=== PATIENT | male | born 1950 | race Caucasian/White ===

== ENCOUNTER 2016-08-08 10:30 | Inpatient (IN) | payer SELFPAY ==
[~2016-08-08] VITALS: Ht 180.3 cm; Wt 51.3 kg
[2016-08-08] VITALS (11 sets, daily range): BP systolic 95–146; BP diastolic 68–107
[~2016-08-08 10:30] MED LIST: ASPI325T8 PO; BUPR150T6 PO; BUPR1FIL BC; DILT240C32 PO; HYDR-971 PO; LACT20SO PO; LORA0.5T96 PO; OMEP20CA9 PO; ONDA8TAB12 PO; THIA100T4 PO
[2016-08-08] MEDS ORDERED: dilTIAZem IV PUSH 25 MG/5 ML VIAL ONE (10:37)
[2016-08-08 10:51] LABS: BASO # 0.1 x10^3/uL (0.0-0.2); BASO % 0 % (0-3); EOS % 1 % (0-3); LYMPH # 3.8 x10^3/uL (1.0-4.8); LYMPH % 23 % (24-48); MEAN CORPUSCULAR HEMOGLOBIN 33 pg (25-35); MEAN CORPUSCULAR HGB CONC 34 g/dL (31-37); MEAN CORPUSCULAR VOLUME 97 fL (79-100); MONO % 4 % (0-9); NEUT % 72 % (31-73); PLATELET COUNT 312 x10^3/uL (140-400); RED BLOOD COUNT 4.54 x10^6/uL (4.30-5.70); RED CELL DISTRIBUTION WIDTH 14.1 % (11.5-14.5); WHITE BLOOD COUNT 16.7 x10^3/uL (4.0-11.0)
--- NOTE | 2016-08-08 10:58 | RAD ---
Indication back pain. A single view of the chest was obtained and is compared to a study 01/31/2016. The heart and pulmonary vessels appear normal. The lungs are clear of acute infiltrates. There has not been a significant change compared to the previous exam. IMPRESSION: No acute or focal process. No significant change
[2016-08-08 10:59] LABS: CALCIUM 9.6 mg/dL (8.5-10.1); CREATININE 1.1 mg/dL (0.7-1.3); GFR 67.4; INR 1.2 (0.8-1.1); PROTHROMBIN TIME PATIENT 14.6 SEC (11.7-14.0)
[2016-08-08] MEDS ORDERED: dilTIAZem IV PUSH 25 MG/5 ML VIAL IVP ONE (11:00)
[2016-08-08 11:05] LABS: MAGNESIUM 2.1 mg/dL (1.8-2.4); TOTAL BILIRUBIN 0.9 mg/dL (0.2-1.0); TOTAL PROTEIN 8.2 g/dL (6.4-8.2)
[2016-08-08] MEDS ORDERED: IOHEXOL 350 MG/ML 100 ML VIAL. IV ONE (11:15)
[2016-08-08] MEDS ORDERED: PROPOFOL 20 ML IV ONE (11:15)
[2016-08-08] MEDS ORDERED: fentaNYL PF VIAL 100 MCG/2 ML VIAL IV ONE ×3 (11:15→11:45)
[2016-08-08] MEDS ORDERED: CONTRAST GIVEN MC PRN (11:15)
[2016-08-08] MEDS ORDERED: PROPOFOL 50 ML IV ONE ×2 (11:17→12:09)
[2016-08-08] MEDS ORDERED: ONDANSETRON PF 4 MG/2 ML VIAL. IV PRN (11:30)
[2016-08-08] MEDS ORDERED: fentaNYL PF VIAL 100 MCG/2 ML VIAL IV PRN (11:30)
[2016-08-08 11:31] LABS: BILIRUBIN,URINE NEGATIVE (NEG); GLUCOSE,URINE NEGATIVE (NEG); NITRITE,URINE NEGATIVE (NEG); PROTEIN,URINE 30 mg/dL (NEG-TRACE)
[2016-08-08 11:38] LABS: BARBITURATES NEG (NEG); BENZODIAZEPINES NEG (NEG); CANNABINOIDS POS (NEG); COCAINE NEG (NEG); METHADONE NEG (NEG); OPIATES NEG (NEG); PHENCYCLIDINE NEG (NEG)
[2016-08-08 11:40] LABS: BACTERIA,URINE FEW /HPF (0-FEW); SQUAMOUS EPITHELIAL CELL,UR FEW /LPF
[2016-08-08 11:41] LABS: SPERM,URINE PRESENT /HPF
--- NOTE | 2016-08-08 12:33 | RAD ---
Indication change in mental status. Noncontrast images of the head were obtained. No prior CT imaging of the head is available. Note is made of an MRI examination 02/01/2016. The calvarium appears unremarkable. The visualized paranasal sinuses appear normal. There is no subdural or epidural hematoma. No mass or midline shift is seen. There is no evidence of hemorrhage. IMPRESSION: No acute finding seen in the head PQRS Compliance Statement: One or more of the following individualized dose reduction techniques were utilized for this examination: 1. Automated exposure control 2. Adjustment of the mA and/or kV according to patient size 3. Use of iterative reconstruction technique
--- NOTE | 2016-08-08 12:40 | EKG ---
[facility] [address] [place] [address] Test Date: 2016-08-08 Test Time: 10:37:02 Pat Name: EMIL KAUR Department: Room: 102 1 Gender: M [employer]: TEJA : [id number] Requested By: JARRELL EAST Order Number: [id number] Reading MD: Michelle Orozco Measurements Intervals [place] Rate: 123 P: OR: QRS: 80 QRSD: 80 T: -26 QT: 308 QTc: 446 Interpretive Statements ATRIAL FIBRILLATION ST & T ABNORMALITY, CONSIDER INFEROLATERAL ISCHEMIA ABNORMAL ECG Electronically Signed On 08-08-2016 21:29:15 CDT by Michelle Orozco
[2016-08-08 12:42] LABS: BASE EXCESS COOX -8 mmol/L (-3-3); CARBON MONOXIDE 0.5 % (0.0-1.9); HCO3 COOX 18 mmol/L (21-28); METHEMOGLOBIN 0.5 % (0.0-1.9); OXYHEMOGLOBIN 98.6 %; PCO2 COOX 37 mmHg (35-46); PO2 COOX > 503 mmHg (65-108); SAT O2 COOX 100 % (92-99); TOTAL HEMOGLOBIN 14.8 g/dL
--- NOTE | 2016-08-08 12:46 | RAD ---
Indication change in mental status. Suspect dissection. Initially noncontrast images through the chest and most of the abdomen were obtained. This was followed by CTA targeted to the thoracic and abdominal aorta. Approximately 90 cc of Omnipaque 300 was administered intravenously. Volume rendered images were generated and reviewed. Sagittal reformatted images were also generated and reviewed. On the initial noncontrast images there is no evidence of intramural hematoma. Some plaquing of the abdominal aorta is noted. On the contrast images the thoracic aorta appears normal. There is no aneurysm. No acute finding is seen. There is no dissection. The abdominal aorta appears unremarkable. Endotracheal tube is noted. There is no significant hilar or mediastinal adenopathy. There is no acute infiltrate in either lung. A dominant soft tissue mass is not seen. There is an air cavity in the left lower lobe measuring 7 cm in greatest dimension. This may reflect a bleb or bulla. Pneumatocele would be an additional consideration. It is quite thin-walled. Imaging through the visualized abdomen is unremarkable. IMPRESSION: No acute finding seen in the chest. Negative study for dissection. 7 cm air cavity in the left lower lobe most compatible with a bleb, bulla or pneumatocele. PQRS Compliance Statement: One or more of the following individualized dose reduction techniques were utilized for this examination: 1. Automated exposure control 2. Adjustment of the mA and/or kV according to patient size 3. Use of iterative reconstruction technique
--- NOTE | 2016-08-08 12:49 | PHYS DOC ---
Past Medical History Past Medical History: Hepatitis, Other Additional Past Medical Histor: CHRONIC N/V & ABD PAIN, Narcotic addiction, HEP C Past Surgical History: No Surgical History Alcohol Use: Heavy Drug Use: Marijuana, Other Adult General Chief Complaint Chief Complaint: BACK PAIN - NO INJURY HPI HPI Patient is a 65 year old male presenting to the emergency department for evaluation of extreme back pain pain is in his upper back and he is in extremis and very difficult to get history from. He is obviously in atrial fibrillation with RVR tachycardic in the 150s and he is hypertensive in the 170/110 range as well. Patient was given a bolus dose of Cardizem and I had 2 other critical patients I had to attend to and was called back into his room as he was having a seizure. Patient was completely blue with an auction saturation of 50% and he had gurgling breath sounds and was not protecting his airway. Decision was made to intubate patient. Patient was intubated and he had head CT and CT angiogram of his chest done. As I was updating family I was asking the rest of his medical history and it appears that he is a heavy daily drinker but they do not think that he stop drinking alcohol. After reviewing the labs he had no alcohol in the system. Patient likely having withdrawal seizures and his ammonia is high and likely has some hepatic encephalopathy as well. Review of Systems Review of Systems Unable to obtain due to medical condition Current Medications Current Medications Current Medications Medications (Trade) Dose Ordered Sig/Farzana Start Time Stop Time Status Last Admin Dose Admin Diltiazem HCl (Cardizem) 20 mg 1X ONCE 08/08/16 11:00 08/08/16 11:01 DC 08/08/16 10:40 20 MG Diltiazem HCl 125 mg/Dextrose 125 ml @ 0 mls/hr CONT PRN 08/08/16 11:00 Fentanyl Citrate (Fentanyl 2ml Vial) 100 mcg 1X ONCE 08/08/16 11:15 08/08/16 11:16 DC Info (Do NOT chart on this entry -- for MONITORING) 1 each PRN DAILY PRN 08/08/16 11:15 08/10/16 11:14 Iohexol (Omnipaque 350 Mg/ml) 90 ml 1X ONCE 08/08/16 11:15 08/08/16 11:16 DC Lorazepam (Ativan) 2 mg STK-MED ONCE 08/08/16 10:55 08/08/16 10:56 DC Propofol 50 ml @ As Directed STK-MED ONCE 08/08/16 11:17 08/08/16 11:18 DC Allergies Allergies Allergies Coded Allergies Type Severity Reaction Last Updated Verified No Known Drug Allergies 12/01/15 No Physical Exam Physical Exam Constitutional: Toxic appearing and diaphoretic HENT: Normocephalic, atraumatic, bilateral external ears normal, oropharynx moist, no oral exudates, nose normal. [] Eyes: PERRLA Neck: Normal range of motion, no tenderness, supple, no stridor. [] Cardiovascular irregular tachycardic rhythm Lungs & Thorax: Bilateral breath sounds present Abdomen: Bowel sounds normal, soft, no tenderness, no masses, no pulsatile masses. [] Skin: Cool and pale Back: no CVA tenderness. [] Extremities: No tenderness, no cyanosis, no clubbing, ROM intact, no edema. [] Neurologic: Alert and oriented X 2, moves all extremities Current Patient Data Vital Signs Vital Signs Date Time Temp Pulse Resp B/P (MAP) Pulse Ox O2 Delivery O2 Flow Rate FiO2 08/08/16 11:18 100 Ventilator 08/08/16 11:17 138/86 (103) 08/08/16 10:40 177 08/08/16 10:30 98.8 26 98.8 Lab Values Laboratory Tests Test 08/08/16 10:35 08/08/16 10:37 08/08/16 11:10 08/08/16 11:13 White Blood Count 16.7 x10^3/uL (4.0-11.0) H Red Blood Count 4.54 x10^6/uL (4.30-5.70) Hemoglobin 15.0 g/dL (13.0-17.5) Hematocrit 44.0 % (39.0-53.0) Mean Corpuscular Volume 97 fL (79-100) Mean Corpuscular Hemoglobin 33 pg (25-35) Mean Corpuscular Hemoglobin Concent 34 g/dL (31-37) Red Cell Distribution Width 14.1 % (11.5-14.5) Platelet Count 312 x10^3/uL (140-400) Neutrophils (%) (Auto) 72 % (31-73) Lymphocytes (%) (Auto) 23 % (24-48) L Monocytes (%) (Auto) 4 % (0-9) Eosinophils (%) (Auto) 1 % (0-3) Basophils (%) (Auto) 0 % (0-3) Neutrophils # (Auto) 12.0 x10^3uL (1.8-7.7) H Lymphocytes # (Auto) 3.8 x10^3/uL (1.0-4.8) Monocytes # (Auto) 0.7 x10^3/uL (0.0-1.1) Eosinophils # (Auto) 0.2 x10^3/uL (0.0-0.7) Basophils # (Auto) 0.1 x10^3/uL (0.0-0.2) Prothrombin Time 14.6 SEC (11.7-14.0) H Prothrombin Time INR 1.2 (0.8-1.1) H PTT 30 SEC (24-38) Sodium Level 140 mmol/L (136-145) Potassium Level 4.0 mmol/L (3.5-5.1) Chloride Level 102 mmol/L (98-107) Carbon Dioxide Level 17 mmol/L (21-32) L Anion Gap 21 (6-14) H Blood Urea Nitrogen 15 mg/dL (8-26) Creatinine 1.1 mg/dL (0.7-1.3) Estimated GFR (Cockcroft-Gault) 67.4 BUN/Creatinine Ratio 14 (6-20) Glucose Level 166 mg/dL (70-99) H Calcium Level 9.6 mg/dL (8.5-10.1) Magnesium Level 2.1 mg/dL (1.8-2.4) Total Bilirubin 0.9 mg/dL (0.2-1.0) Aspartate Amino Transferase (AST) 48 U/L (15-37) H Alanine Aminotransferase (ALT) 38 U/L (16-63) Alkaline Phosphatase 87 U/L (46-116) Creatine Kinase 89 U/L (39-308) Troponin I Quantitative < 0.017 ng/mL (0.000-0.055) CZ-Hoc-T-Type Natriuretic Peptide 1595 pg/mL (0-124) H Total Protein 8.2 g/dL (6.4-8.2) Albumin 4.0 g/dL (3.4-5.0) Albumin/Globulin Ratio 1.0 (1.0-1.7) Lipase 213 U/L (73-393) Ethyl Alcohol Level < 10 mg/dL (0-10) Urine Collection Type Unknown Urine Color Yellow Urine Clarity Clear Urine pH 6.0 Urine Specific [place] 1.020 Urine Protein 30 mg/dL (NEG-TRACE) Urine Glucose (UA) Negative mg/dL (NEG) Urine Ketones (Stick) Trace mg/dL (NEG) Urine Blood Small (NEG) Urine Nitrite Negative (NEG) Urine Bilirubin Negative (NEG) Urine Urobilinogen Dipstick 2.0 mg/dL (0.2 mg/dL) Urine Leukocyte Esterase Negative (NEG) Urine RBC 6-10 /HPF (0-2) Urine WBC 1-4 /HPF (0-4) Urine Squamous Epithelial Cells Few /LPF Urine Bacteria Few /HPF (0-FEW) Urine Hyaline Casts Many /HPF Urine Mucus Marked /LPF Urine Sperm Present /HPF Urine Opiates Screen Neg (NEG) Urine Methadone Screen Neg (NEG) Urine Barbiturates Neg (NEG) Urine Phencyclidine Screen Neg (NEG) Urine Amphetamine/Methamphetamine Neg (NEG) Urine Benzodiazepines Screen Neg (NEG) Urine Cocaine Screen Neg (NEG) Urine Cannabinoids Screen Pos (NEG) Urine Ethyl Alcohol Neg (NEG) Lactic Acid Level 17.2 mmol/L (0.4-2.0) *H Ammonia 254 mcmol/L (11-34) H Laboratory Tests 08/08/16 10:35 Laboratory Tests 08/08/16 10:35 EKG EKG Atrial fibrillation at 123 bpm with normal axis no obvious ST elevation or depression with hyperacute T waves. Radiology/Procedures Radiology/Procedures Indication change in mental status. Noncontrast images of the head were obtained. No prior CT imaging of the head is available. Note is made of an MRI examination 02/01/2016. The calvarium appears unremarkable. The visualized paranasal sinuses appear normal. There is no subdural or epidural hematoma. No mass or midline shift is seen. There is no evidence of hemorrhage. IMPRESSION: No acute finding seen in the head PQRS Compliance Statement: One or more of the following individualized dose reduction techniques were utilized for this examination: 1. Automated exposure control 2. Adjustment of the mA and/or kV according to patient size 3. Use of iterative reconstruction technique DICTATED and SIGNED BY: WAYNE LIU MD DATE: 08/08/16 1227 Indication back pain. A single view of the chest was obtained and is compared to a study 01/31/2016. The heart and pulmonary vessels appear normal. The lungs are clear of acute infiltrates. There has not been a significant change compared to the previous exam. IMPRESSION: No acute or focal process. No significant change DICTATED and SIGNED BY: WAYNE LIU MD DATE: 08/08/16 1055 Impressions: Indication: Respiratory failure Consent: Unable to give consent due to emergent nature. Medications Used: see nursing note Procedure: The patient was placed in the appropriate position. Intubation was performed using direct visualization and a 7.5 ET tube was used endotracheal tube. 22 center meters at the teeth. Initial confirmation of placement included bilateral breath sounds, tube fogging, adequate chest rise, adequate pulse oximetry reading. A chest x-ray to verify correct placement of the tube showed appropriate tube position. The patient tolerated the procedure well. Complications: none. Course & Med Decision Making Course & Med Decision Making Patient's back pain is likely from erosive esophagitis as reports he has history of this. He is likely withdrawing. Patient put on propofol drip and could tolerate intermittent benzodiazepines as well. Patient will be admitted to the ICU in critical condition. Critical care time of 35 minutes. Dragon Disclaimer Dragon Disclaimer This electronic medical record was generated, in whole or in part, using a voice recognition dictation system. Departure Departure Impression: Primary Impression: Respiratory failure Additional Impressions: Alcohol withdrawal Lactic acid acidosis Hepatic encephalopathy Disposition: ADMITTED INPATIENT Admitting Physician: Other (REUSCH) Condition: CRITICAL Referrals: THOMAS HAY Jr, MD (PCP) Problem Qualifiers JARRELL EAST DO Aug 08, 2016 12:49
[2016-08-08 12:52] LABS: FIO2 COOX 100
[2016-08-08] MEDS ORDERED: SUCCINYLCHOLINE 200 MG/10 ML VIAL. IV ONE (13:00)
[2016-08-08] MEDS ORDERED: ETOMIDATE 20 MG/10 ML VIAL. IV ONE (13:00)
--- NOTE | 2016-08-08 13:27 | ACF ---
Admission Forms Criteria RESPIRATORY FAILURE [facility] Clinical Indications for Admission to Inpatient Care (Place 'X' for any and all applicable criteria): Hospital admission is needed for appropriate care of the patient because of acute respiratory failure or insufficiency as indicated by ANY ONE of the following(1)(2)(3)(4)(5)(6)(7)(8): [X]I. Mechanical ventilation needed (acute invasive or noninvasive) [ ]II. Severe ventilation deficit as indicated by ANY ONE of the following (9) [ ]a) Respiratory acidosis (pH less than 7.32 and partial pressure of carbon dioxide greater than 40 mm Hg (5.3 kPa)) [ ]b) Partial pressure of carbon dioxide greater than 44 mm Hg (5.9 kPa ) (new) [ ]c) Airflow measurements less than 25% of predicted (eg, peak expiratory flow rate less than 100 L/minute) [ ]d) Forced vital capacity less than 15 mL/kg of ideal body weight, or 50% decrease in vital capacity from baseline [ ]III. Noncardiac pulmonary edema not resolving with rapid emergency treatment (8) [ ]IV. Severe respiratory distress as indicated by ANY ONE of the following: [ ]a) Severe tachypnea (respiratory rate greater than 30, greater than 45 for 6-month-old, greater than 60 for ) [ ]b) Severe hypoxemia (partial pressure of oxygen less than 50 mm Hg ( 6.7 kPa) on greater than 50% oxygen or partial pressure of oxygen to FIO2 ratio less than 200) [ ]c) Mental status deterioration from respiratory disease [ ]V. Airway obstruction or inadequate protection [A](10)(11) The original [employer] content created by [employer] has been revised. The portions of the content which have been revised are identified through the use of italic text or in bold, and [employer] has neither reviewed nor approved the modified material. All other unmodified content is copyright [employer]. Please see references footnoted in the original [employer] edition 2016 Admission Criteria Met?: Yes ZULY VIDAL Aug 08, 2016 13:27
[2016-08-08] MEDS: PROPOFOL 100 ML IV PRN ×2 (13:58→22:00)
--- NOTE | 2016-08-08 15:24 | PDOC2 ---
CONSULT Date of Consult Date of Consult DATE: 08/08/16 TIME: 15:21 Reason for Consult Reason for Consult: Seizures. History of Present Illness Reason for Visit: This patient is 65-year-old man who presented to emergency room with complaint of back pain. Information obtained from patient's family at bedside. They report patient was at home he had an episode of generalized tonic-clonic seizure , confusion lasted for a few minutes patient does not have any tongue bite does not have any loss of bladder or bowel control. Patient had another seizure episode generalized tonic-clonic in the emergency room patient was loaded with 1 g Keppra. Patient had a CT scan done on the brain which did not show any acute intracranial process. Patient is a heavy" drinker. Patient was drinking less than normal in last few days. Patient was also in atrial fibrillation, tachycardic his heart was running in 150s, blood pressure was high patient had a bolus of Cardizem. Patient was intubated in the emergency room and patient is currently status sedated, propofol patient is also on alcohol withdrawal protocol. Encephalopathy Hepatic encephalopathy Alcohol withdrawal Respiratory failure currently sedated and intubated. Generalized seizure Past Medical History Cardiovascular: AFIB, HTN, Other GI: Gastritis, Other Hepatobiliary: Hep A/B/C Psych: Addictions Past Surgical History Past Surgical History: No pertinent history Family History Family History: Hypertension Social History ALCOHOL: heavy Drugs: Other Current Problem List Problem List Problems Medical Problems: (1) Alcohol withdrawal Status: Acute (2) Hepatic encephalopathy Status: Acute (3) Lactic acid acidosis Status: Acute (4) Respiratory failure Status: Acute Current Medications Current Medications Current Medications Diltiazem HCl (Cardizem) 25 mg STK-MED ONCE .ROUTE ; Start 08/08/16 at 10:37; Stop 08/08/16 at 10:38; Status DC Diltiazem HCl 125 mg/Dextrose 125 ml @ 0 mls/hr CONT PRN IV SEE I/O RECORD; Start 08/08/16 at 11:00 Diltiazem HCl (Cardizem) 20 mg 1X ONCE IVP Last administered on 08/08/16t 10: 40; Start 08/08/16 at 11:00; Stop 08/08/16 at 11:01; Status DC Lorazepam (Ativan) 2 mg STK-MED ONCE .ROUTE ; Start 08/08/16 at 10:55; Stop 01/14 at 10:56; Status DC Iohexol (Omnipaque 350 Mg/ml) 90 ml 1X ONCE IV ; Start 08/08/16 at 11:15; Stop 08/08/16 at 11:16; Status DC Propofol 20 ml @ 0 mls/hr 1X ONCE IV Last administered on 08/08/16 11:20; Start 08/08/16 at 11:15; Stop 08/08/16 at 11:16; Status DC Info (Do NOT chart on this entry -- for MONITORING) 1 each PRN DAILY PRN MC SEE COMMENTS; Start 08/08/16 at 11:15; Stop 08/10/16 at 11:14 Fentanyl Citrate (Fentanyl 2ml Vial) 100 mcg 1X ONCE IV Last administered on 11:03; Start 08/08/16 at 11:15; Stop 08/08/16 at 11:16; Status DC Fentanyl Citrate (Fentanyl 2ml Vial) 100 mcg 1X ONCE IV Last administered on 11:16; Start 08/08/16 at 11:15; Stop 08/08/16 at 11:16; Status DC Propofol 50 ml @ As Directed STK-MED ONCE IV ; Start 08/08/16 at 11:17; Stop 01/14 at 11:18; Status DC Ondansetron HCl (Zofran) 4 mg PRN Q8HRS PRN IV NAUSEA/VOMITING; Start 08/08/16 at 11:30; Stop 08/09/16 at 11:29 Fentanyl Citrate (Fentanyl 2ml Vial) 50 mcg PRN Q2HR PRN IV PAIN Last administered on 08/08/16 13:16; Start 08/08/16 at 11:30; Stop 08/09/16 at 11:29 Levetiracetam 1000 mg/Sodium Chloride 110 ml @ 440 mls/hr 1X ONCE IV Last administered on 08/08/16 11:39; Start 08/08/16 at 11:45; Stop 08/08/16 at 11:59 ; Status DC Fentanyl Citrate (Fentanyl 2ml Vial) 100 mcg 1X ONCE IV ; Start 08/08/16 at 11: 45; Stop 08/08/16 at 11:46; Status DC Propofol 50 ml @ As Directed STK-MED ONCE IV ; Start 08/08/16 at 12:09; Stop 01/14 at 12:10; Status DC Lorazepam (Ativan) 2 mg 1X ONCE IV ; Start 08/08/16 at 13:00; Stop 08/08/16 at 13:01; Status DC Succinylcholine Chloride (Anectine) 100 mg 1X ONCE IV ; Start 08/08/16 at 13:00 ; Stop 08/08/16 at 13:01; Status DC Etomidate (Amidate) 20 mg 1X ONCE IV ; Start 08/08/16 at 13:00; Stop 08/08/16 at 13:01; Status DC Propofol 100 ml @ 0 mls/hr CONT PRN IV PER PROTOCOL Last administered on t 13:58; Start 08/08/16 at 13:45 Fentanyl Citrate (Fentanyl 2ml Vial) 50 mcg PRN Q1HR PRN IV COMM; Start at 13:45 Chlorhexidine Gluconate (Peridex) 15 ml BID MM ; Start 08/08/16 at 21:00 Ipratropium [place] (Atrovent) 0.5 mg RTQID NEB ; Start 08/08/16 at 16:00 Metoprolol Tartrate (Lopressor) 12.5 mg BID PO ; Start 08/08/16 at 14:30 Lorazepam (Ativan) 1 mg PRN Q4HRS PRN IV ANXIETY / AGITATION; Start 08/08/16 at 14:45 Levetiracetam (Keppra) 500 mg Q12HR PO ; Start 08/08/16 at 21:00 Multivitamins 10 ml/Folic Acid 1 mg/Thiamine HCl 100 mg/Sodium Chloride 1,011.2 ml @ 100 mls/ hr Q24H IV ; Start 08/08/16 at 16:00 Lorazepam (Ativan) 2 mg PRN Q4HRS PRN IV ANXIETY / AGITATION; Start 08/08/16 at 15:15 Active Scripts Active Aspirin 325 Mg Tablet 1 Tab PO DAILY Lactulose 20 Gm/30 Ml Solution 20 Gm PO QODAY Ativan (Lorazepam) 0.5 Mg Tablet 0.5 Mg PO BID Diltiazem 24HR Cd (Diltiazem Hcl) 240 Mg Cap.er.24h 240 Mg PO DAILY Vitamin B-1 (Thiamine Hcl) 100 Mg Tablet 100 Mg PO DAILY [place] 5-325 Tablet (Acetaminophen/Hydrocodone Bitart) 1 Each Tablet 1 Tab PO PRN Q6HRS PRN Reported Omeprazole 20 Mg Capsule.dr 20 Mg PO DAILY Zofran Odt (Ondansetron) 8 Mg Tab.rapdis 1 Tab PO PRN Q8HRS PRN [place] 4.2-0.7 mg Film (Buprenorphine HCl/Naloxone HCl) 1 Each Film 1 Each BC DAILY Allergies Allergies: Coded Allergies: No Known Drug Allergies (Unverified , 12/01/15) Physical Exam Physical Exam REVIEW OF SYSTEMS: Unobtainable PHYSICAL EXAMINATION: General appearance sedated and intubated HEENT: Normocephalic and nontraumatic. Neck is supple. No lymphadenopathy. Cardiovascular: S1, S2, Pulmonary: Clear to auscultation bilaterally. Abdomen: Bowel sounds are positive. Abdomen is soft, nontender, and nondistended. NEUROLOGICAL EXAMINATION: Sedated and intubated PERRL. EOMI. not elicited CN: no focal findings. Muscle tone: within normal. Muscle strength: Minimum withdrawal to pain DTR: 1 Plantar reflex: Flexor response bilaterally Gait: not able Sensory exam: Minimum withdrawal to pain Vitals VITALS Vital Signs Date Time Temp Pulse Resp B/P (MAP) Pulse Ox O2 Delivery O2 Flow Rate FiO2 08/08/16 13:50 Ventilator 08/08/16 12:45 100 08/08/16 12:30 98 18 132/76 (94) 08/08/16 10:30 98.8 98.8 Labs Labs Laboratory Tests Test 08/08/16 10:35 08/08/16 10:37 08/08/16 11:10 08/08/16 11:13 White Blood Count 16.7 x10^3/uL (4.0-11.0) Red Blood Count 4.54 x10^6/uL (4.30-5.70) Hemoglobin 15.0 g/dL (13.0-17.5) Hematocrit 44.0 % (39.0-53.0) Mean Corpuscular Volume 97 fL (79-100) Mean Corpuscular Hemoglobin 33 pg (25-35) Mean Corpuscular Hemoglobin Concent 34 g/dL (31-37) Red Cell Distribution Width 14.1 % (11.5-14.5) Platelet Count 312 x10^3/uL (140-400) Neutrophils (%) (Auto) 72 % (31-73) Lymphocytes (%) (Auto) 23 % (24-48) Monocytes (%) (Auto) 4 % (0-9) Eosinophils (%) (Auto) 1 % (0-3) Basophils (%) (Auto) 0 % (0-3) Neutrophils # (Auto) 12.0 x10^3uL (1.8-7.7) Lymphocytes # (Auto) 3.8 x10^3/uL (1.0-4.8) Monocytes # (Auto) 0.7 x10^3/uL (0.0-1.1) Eosinophils # (Auto) 0.2 x10^3/uL (0.0-0.7) Basophils # (Auto) 0.1 x10^3/uL (0.0-0.2) Prothrombin Time 14.6 SEC (11.7-14.0) Prothromb Time International Ratio 1.2 (0.8-1.1) Activated Partial Thromboplast Time 30 SEC (24-38) Sodium Level 140 mmol/L (136-145) Potassium Level 4.0 mmol/L (3.5-5.1) Chloride Level 102 mmol/L (98-107) Carbon Dioxide Level 17 mmol/L (21-32) Anion Gap 21 (6-14) Blood Urea Nitrogen 15 mg/dL (8-26) Creatinine 1.1 mg/dL (0.7-1.3) Estimated GFR (Cockcroft-Gault) 67.4 BUN/Creatinine Ratio 14 (6-20) Glucose Level 166 mg/dL (70-99) Calcium Level 9.6 mg/dL (8.5-10.1) Magnesium Level 2.1 mg/dL (1.8-2.4) Total Bilirubin 0.9 mg/dL (0.2-1.0) Aspartate Amino Transf (AST/SGOT) 48 U/L (15-37) Alanine Aminotransferase (ALT/SGPT) 38 U/L (16-63) Alkaline Phosphatase 87 U/L (46-116) Creatine Kinase 89 U/L (39-308) Troponin I Quantitative < 0.017 ng/mL (0.000-0.055) UU-Jqx-[id number]-Type Natriuretic Peptide 1595 pg/mL (0-124) Total Protein 8.2 g/dL (6.4-8.2) Albumin 4.0 g/dL (3.4-5.0) Albumin/Globulin Ratio 1.0 (1.0-1.7) Lipase 213 U/L (73-393) Ethyl Alcohol Level < 10 mg/dL (0-10) Urine Collection Type Unknown Urine Color Yellow Urine Clarity Clear Urine pH 6.0 Urine Specific [place] 1.020 Urine Protein 30 mg/dL (NEG-TRACE) Urine Glucose (UA) Negative mg/dL (NEG) Urine Ketones (Stick) Trace mg/dL (NEG) Urine Blood Small (NEG) Urine Nitrite Negative (NEG) Urine Bilirubin Negative (NEG) Urine Urobilinogen Dipstick 2.0 mg/dL (0.2 mg/dL) Urine Leukocyte Esterase Negative (NEG) Urine RBC 6-10 /HPF (0-2) Urine WBC 1-4 /HPF (0-4) Urine Squamous Epithelial Cells Few /LPF Urine Bacteria Few /HPF (0-FEW) Urine Hyaline Casts Many /HPF Urine Mucus Marked /LPF Urine Sperm Present /HPF Urine Opiates Screen Neg (NEG) Urine Methadone Screen Neg (NEG) Urine Barbiturates Neg (NEG) Urine Phencyclidine Screen Neg (NEG) Urine Amphetamine/Methamphetamine Neg (NEG) Urine Benzodiazepines Screen Neg (NEG) Urine Cocaine Screen Neg (NEG) Urine Cannabinoids Screen Pos (NEG) Urine Ethyl Alcohol Neg (NEG) Lactic Acid Level 17.2 mmol/L (0.4-2.0) Ammonia 254 mcmol/L (11-34) Test 08/08/16 12:30 O2 Saturation 100 % (92-99) Arterial Blood pH 7.30 (7.35-7.45) Arterial Blood pCO2 at Patient Temp 37 mmHg (35-46) Arterial Blood pO2 at Patient Temp > 503 mmHg (65-108) Arterial Blood HCO3 18 mmol/L (21-28) Arterial Blood Base Excess -8 mmol/L (-3-3) Oxyhemoglobin 98.6 % Methemoglobin 0.5 % (0.0-1.9) Carbon Monoxide, Quantitative 0.5 % (0.0-1.9) FiO2 100 Laboratory Tests Test 08/08/16 10:35 08/08/16 10:37 08/08/16 11:10 08/08/16 11:13 White Blood Count 16.7 x10^3/uL (4.0-11.0) Red Blood Count 4.54 x10^6/uL (4.30-5.70) Hemoglobin 15.0 g/dL (13.0-17.5) Hematocrit 44.0 % (39.0-53.0) Mean Corpuscular Volume 97 fL (79-100) Mean Corpuscular Hemoglobin 33 pg (25-35) Mean Corpuscular Hemoglobin Concent 34 g/dL (31-37) Red Cell Distribution Width 14.1 % (11.5-14.5) Platelet Count 312 x10^3/uL (140-400) Neutrophils (%) (Auto) 72 % (31-73) Lymphocytes (%) (Auto) 23 % (24-48) Monocytes (%) (Auto) 4 % (0-9) Eosinophils (%) (Auto) 1 % (0-3) Basophils (%) (Auto) 0 % (0-3) Neutrophils # (Auto) 12.0 x10^3uL (1.8-7.7) Lymphocytes # (Auto) 3.8 x10^3/uL (1.0-4.8) Monocytes # (Auto) 0.7 x10^3/uL (0.0-1.1) Eosinophils # (Auto) 0.2 x10^3/uL (0.0-0.7) Basophils # (Auto) 0.1 x10^3/uL (0.0-0.2) Prothrombin Time 14.6 SEC (11.7-14.0) Prothromb Time International Ratio 1.2 (0.8-1.1) Activated Partial Thromboplast Time 30 SEC (24-38) Sodium Level 140 mmol/L (136-145) Potassium Level 4.0 mmol/L (3.5-5.1) Chloride Level 102 mmol/L (98-107) Carbon Dioxide Level 17 mmol/L (21-32) Anion Gap 21 (6-14) Blood Urea Nitrogen 15 mg/dL (8-26) Creatinine 1.1 mg/dL (0.7-1.3) Estimated GFR (Cockcroft-Gault) 67.4 BUN/Creatinine Ratio 14 (6-20) Glucose Level 166 mg/dL (70-99) Calcium Level 9.6 mg/dL (8.5-10.1) Magnesium Level 2.1 mg/dL (1.8-2.4) Total Bilirubin 0.9 mg/dL (0.2-1.0) Aspartate Amino Transf (AST/SGOT) 48 U/L (15-37) Alanine Aminotransferase (ALT/SGPT) 38 U/L (16-63) Alkaline Phosphatase 87 U/L (46-116) Creatine Kinase 89 U/L (39-308) Troponin I Quantitative < 0.017 ng/mL (0.000-0.055) IO-Tbh-C-Type Natriuretic Peptide 1595 pg/mL (0-124) Total Protein 8.2 g/dL (6.4-8.2) Albumin 4.0 g/dL (3.4-5.0) Albumin/Globulin Ratio 1.0 (1.0-1.7) Lipase 213 U/L (73-393) Ethyl Alcohol Level < 10 mg/dL (0-10) Urine Collection Type Unknown Urine Color Yellow Urine Clarity Clear Urine pH 6.0 Urine Specific [place] 1.020 Urine Protein 30 mg/dL (NEG-TRACE) Urine Glucose (UA) Negative mg/dL (NEG) Urine Ketones (Stick) Trace mg/dL (NEG) Urine Blood Small (NEG) Urine Nitrite Negative (NEG) Urine Bilirubin Negative (NEG) Urine Urobilinogen Dipstick 2.0 mg/dL (0.2 mg/dL) Urine Leukocyte Esterase Negative (NEG) Urine RBC 6-10 /HPF (0-2) Urine WBC 1-4 /HPF (0-4) Urine Squamous Epithelial Cells Few /LPF Urine Bacteria Few /HPF (0-FEW) Urine Hyaline Casts Many /HPF Urine Mucus Marked /LPF Urine Sperm Present /HPF Urine Opiates Screen Neg (NEG) Urine Methadone Screen Neg (NEG) Urine Barbiturates Neg (NEG) Urine Phencyclidine Screen Neg (NEG) Urine Amphetamine/Methamphetamine Neg (NEG) Urine Benzodiazepines Screen Neg (NEG) Urine Cocaine Screen Neg (NEG) Urine Cannabinoids Screen Pos (NEG) Urine Ethyl Alcohol Neg (NEG) Lactic Acid Level 17.2 mmol/L (0.4-2.0) Ammonia 254 mcmol/L (11-34) Test 08/08/16 12:30 O2 Saturation 100 % (92-99) Arterial Blood pH 7.30 (7.35-7.45) Arterial Blood pCO2 at Patient Temp 37 mmHg (35-46) Arterial Blood pO2 at Patient Temp > 503 mmHg (65-108) Arterial Blood HCO3 18 mmol/L (21-28) Arterial Blood Base Excess -8 mmol/L (-3-3) Oxyhemoglobin 98.6 % Methemoglobin 0.5 % (0.0-1.9) Carbon Monoxide, Quantitative 0.5 % (0.0-1.9) FiO2 100 Assessment/Plan Assessment/Plan This patient is 65-year-old man who presented to emergency room with complaint of back pain. Information obtained from patient's family at bedside. They report patient was at home he had an episode of generalized tonic-clonic seizure , confusion lasted for a few minutes patient does not have any tongue bite does not have any loss of bladder or bowel control. Patient had another seizure episode generalized tonic-clonic in the emergency room patient was loaded with 1 g Keppra. Patient had a CT scan done on the brain which did not show any acute intracranial process. Patient is a heavy" drinker. Patient was drinking less than normal in last few days. Patient was also in atrial fibrillation, tachycardic his heart was running in 150s, blood pressure was high patient had a bolus of Cardizem. Patient was intubated in the emergency room and patient is currently status sedated, propofol patient is also on alcohol withdrawal protocol. Encephalopathy Hepatic encephalopathy Alcohol withdrawal Respiratory failure currently sedated and intubated. Generalized seizure Continue Keppra 500 mg IV twice a day. Check for infectious or metabolic etiology. We will check MRI brain, lumbar spine with and without contrast. To rule out any acute process. Seizure precautions Plan discussed with patient's family in detail. YOVANY SKELTON MD Aug 08, 2016 15:24
[2016-08-08] MEDS: METOPROLOL TART IMMED RELEASE 25 MG TABLET. PO SCH ×2 (16:28→21:51)
[2016-08-08] MEDS: MULTIVIT INFUSN,ADULT 4,VIT K 10 ML, FOLIC ACID 1 MG, THIAMINE 100 MG in IV NORMAL SALI... IV SCH (16:29)
[2016-08-08] MEDS: IPRATROPIUM BROMIDE 0.5 MG/2.5 ML NEBU. NEB SCH (19:49)
[2016-08-08] MEDS: CHLORHEXIDINE 0.12% 15 ML MOUTHWASH. MM SCH (21:50)
[2016-08-08] MEDS: levETIRAcetam 500 MG TABLET PO SCH (21:50)
--- NOTE | 2016-08-08 21:56 | HP ---
ADMIT DATE: 08/08/2016 CHIEF COMPLAINT: Seizures. HISTORY OF PRESENT ILLNESS: The patient is a 65-year-old gentleman with significant alcohol abuse as well as viral hepatitis who presented to the Emergency Room with complaints of back pain. During the ER visit, he had an episode of generalized grand mal seizures and confusions afterwards. With the second seizure, he was given Ativan as well as Keppra. He was ultimately intubated for airway protection with atrial fibrillation in RVR around 150 as well as hypoxemic episode during the seizure. The patient is now admitted to the ICU for further management and care. PAST MEDICAL HISTORY: Hep C cirrhosis, alcoholism, chronic nausea, vomiting, abdominal pain and narcotic addiction. FAMILY HISTORY: Unknown, the patient unable to relate. SOCIAL HISTORY: Lives with his . Heavy alcohol use and marijuana. ALLERGIES: No known drug allergies. HOME MEDICATIONS: Reconciled with MAR. REVIEW OF SYSTEMS: Unable to obtain as the patient is intubated and sedated. PHYSICAL EXAMINATION: VITAL SIGNS: From today show a blood pressure of 113/76, heart rate of 82, respiratory rate at 24. He is afebrile with a temperature of 99.8. GENERAL: This is a cachectic 65-year-old gentleman, intubated and sedated. HEENT: Shows no scleral icterus. LUNGS: Clear anteriorly. HEART: Has regular rate and rhythm. ABDOMEN: Has positive bowel sounds, soft, nontender. EXTREMITIES: Show no edema. SKIN: Warm, soft and dry. LABORATORY DATA: CBC from today shows a WBC of 16.7, hemoglobin of 15.0, platelets of 312. Chemistries with a BUN and creatinine of 15 and 1.1, CO2 at 17 and normal electrolytes otherwise. LFTs with an AST of 48, albumin at 4. Coags had PT 14.6 and PTT of 30. Toxicology positive for cannabinoids, negative for alcohol. IMAGING: Chest x-ray without significant findings. CTA of the chest obtained as well shows no abnormality in the left lower lung. CT of the head, no acute finding. ASSESSMENT AND PLAN: The patient is a 65-year-old gentleman who presents with seizures, negative alcohol level, most compatible with alcohol withdrawal. He has been started on CIWA protocol, is intubated on propofol. We will monitor closely. The patient has significant hepatic encephalopathy as well, ammonia was 253. We will continue his lactulose from home. Goal is 1-2 bowel movements a day. We will continue other home medications as indicated holding the narcotics for the time being. Pulmonary consult has been obtained. I greatly appreciate him help with management of vent. CANDELARIA JARAMILLO MD DR: UR/nts JOB#: [id number] / [id number] THOMAS Ibrahim MD MTDD
[2016-08-09] VITALS (23 sets, daily range): BP systolic 76–181; BP diastolic 43–103
[2016-08-09] MEDS: PROPOFOL 100 ML IV PRN ×2 (02:29→09:08)
[2016-08-09 04:55] LABS: BASO % 0 % (0-3); EOS % 0 % (0-3); HEMATOCRIT 42.1 % (39.0-53.0); HEMOGLOBIN 13.9 g/dL (13.0-17.5); LYMPH # 1.2 x10^3/uL (1.0-4.8); LYMPH % 10 % (24-48); MEAN CORPUSCULAR HEMOGLOBIN 33 pg (25-35); MEAN CORPUSCULAR HGB CONC 33 g/dL (31-37); MEAN CORPUSCULAR VOLUME 98 fL (79-100); MONO % 10 % (0-9); NEUT % 80 % (31-73); PLATELET COUNT 215 x10^3/uL (140-400); RED BLOOD COUNT 4.28 x10^6/uL (4.30-5.70); RED CELL DISTRIBUTION WIDTH 14.1 % (11.5-14.5); WHITE BLOOD COUNT 13.1 x10^3/uL (4.0-11.0)
[2016-08-09 05:16] LABS: CALCIUM 8.9 mg/dL (8.5-10.1); CREATININE 1.1 mg/dL (0.7-1.3); GFR 67.4
[2016-08-09] MEDS ORDERED: PANTOPRAZOLE 40 MG TABLET.DR. PO SCH (07:30)
[2016-08-09] MEDS: IPRATROPIUM BROMIDE 0.5 MG/2.5 ML NEBU. NEB SCH ×4 (07:34→20:12)
[2016-08-09 07:37] LABS: HCO3 ABG 21 mmol/L (21-28); PCO2 ABG 34 mmHg (35-46); PO2 ABG 134 mmHg (65-108); SAT O2 ABG 98 % (92-99)
[2016-08-09 07:39] LABS: FIO2 ABG 40
--- NOTE | 2016-08-09 08:14 | RAD ---
EXAM: Chest one view. HISTORY: Respiratory failure, intubated. COMPARISON: 08/08/2016. FINDINGS: A frontal view of the chest is obtained. An endotracheal tube has its tip 6 cm above the joan. A nasogastric tube has its tip looped in the stomach. Hyperinflation suggests chronic obstructive pulmonary disease. There are no confluent infiltrates. There is no pneumothorax or pleural effusion. The heart is not enlarged. There are atherosclerotic calcifications of the aorta. IMPRESSION: 1. Hyperinflation. No confluent infiltrates.
[2016-08-09] MEDS ORDERED: LACTULOSE 20 GM/30 ML SOLUTION. PO SCH (09:00)
[2016-08-09] MEDS: METOPROLOL TART IMMED RELEASE 25 MG TABLET. PO SCH ×2 (09:00→21:00)
[2016-08-09] MEDS ORDERED: ASPIRIN 325 MG TABLET PO SCH (09:00)
[2016-08-09] MEDS: CHLORHEXIDINE 0.12% 15 ML MOUTHWASH. MM SCH ×2 (09:08→21:00)
[2016-08-09] MEDS: THIAMINE 100 MG TABLET. PO SCH (09:09)
[2016-08-09] MEDS: levETIRAcetam 500 MG TABLET PO SCH ×2 (09:13→21:00)
--- NOTE | 2016-08-09 09:37 | PDOC2 ---
CARDIAC CONSULT DATE OF CONSULT Date of Consult DATE: 08/09/16 TIME: 09:36 REASON FOR CONSULT Reason for Consult: atrial fib with RVR REFERRING PHYSICIAN Referring Physician: Dr. Raj Jackson SOURCE Source: Caregiver, Chart review HISTORY OF PRESENT ILLNESS HISTORY OF PRESENT ILLNESS 65 year old male presented to ER after seizure at home. Mental status impaired. Found to be in atrial fib with RVR and bolused with IV diltiazem. Seizure in ER with O2 sats in the 50s -- intubated. Family present in room but unable to provide significant information. Has since converted to NSR. Lactic acid level > 17 POA. Reason for Visit: atrial fib PAST MEDICAL HISTORY Cardiovascular: AFIB, HTN GI: Gastritis Hepatobiliary: Hep A/B/C (hep C) Psych: Addictions (ETOH) PAST SURGICAL HISTORY Past Surgical History: No pertinent history FAMILY HISTORY Family History: Hypertension SOCIAL HISTORY ALCOHOL: heavy Drugs: Other (hx of narcotic abuse) CURRENT MEDICATIONS CURRENT MEDICATIONS Current Medications Medications (Trade) Dose Ordered Sig/Farzana Route PRN Reason Start Time Stop Time Status Last Admin Dose Admin Diltiazem HCl (Cardizem) 20 mg 1X ONCE IVP 08/08/16 11:00 08/08/16 11:01 DC 08/08/16 10:40 Propofol 20 ml @ 0 mls/hr 1X ONCE IV 08/08/16 11:15 08/08/16 11:16 DC 08/08/16 11:20 Fentanyl Citrate (Fentanyl 2ml Vial) 100 mcg 1X ONCE IV 08/08/16 11:15 08/08/16 11:16 DC 08/08/16 11:03 Fentanyl Citrate (Fentanyl 2ml Vial) 100 mcg 1X ONCE IV 08/08/16 11:15 08/08/16 11:16 DC 08/08/16 11:16 Fentanyl Citrate (Fentanyl 2ml Vial) 50 mcg PRN Q2HR PRN IV PAIN 08/08/16 11:30 08/09/16 11:29 08/08/16 13:16 Levetiracetam 1000 mg/Sodium Chloride 110 ml @ 440 mls/hr 1X ONCE IV 08/08/16 11:45 08/08/16 11:59 DC 08/08/16 11:39 Propofol 100 ml @ 0 mls/hr CONT PRN IV PER PROTOCOL 08/08/16 13:45 08/09/16 09:08 Chlorhexidine Gluconate (Peridex) 15 ml BID MM 08/08/16 21:00 08/09/16 09:08 Ipratropium [place] (Atrovent) 0.5 mg RTQID NEB 08/08/16 16:00 08/09/16 07:34 Metoprolol Tartrate (Lopressor) 12.5 mg BID PO 08/08/16 14:30 08/08/16 21:51 Levetiracetam (Keppra) 500 mg Q12HR PO 08/08/16 21:00 08/09/16 09:13 Multivitamins 10 ml/Folic Acid 1 mg/Thiamine HCl 100 mg/Sodium Chloride 1,011.2 ml @ 100 mls/ hr Q24H IV 08/08/16 16:00 08/08/16 16:29 Aspirin (Zunilda Aspirin) 325 mg DAILY PO 08/09/16 09:00 08/09/16 09:09 Lactulose 20 gm Q48H PO 08/09/16 09:00 08/09/16 09:13 ALLERGIES ALLERGIES: Coded Allergies: No Known Drug Allergies (Unverified , 12/01/15) ROS Review of System unobtainable due to sedation/intubation PHYSICAL EXAM General: No acute distress HEENT: Atraumatic Lungs: Other (diminished anteriorly) Heart: Normal S1, Normal S2, No murmurs Abdomen: Normal bowel sounds Extremities: No edema, Normal pulses Skin: No rashes Neuro: Normal speech, Other (unable to assess) Psych/Mental Status: Mood NL MUSCULOSKELETAL: Osteoarthritic changes both hands VITALS VITALS Vital Signs Date Time Temp Pulse Resp B/P (MAP) Pulse Ox O2 Delivery O2 Flow Rate FiO2 08/09/16 09:00 63 24 101/66 (78) 100 Ventilator 08/09/16 08:00 98.0 98.0 LABS Lab: Laboratory Tests Test 08/08/16 10:35 08/08/16 10:37 08/08/16 11:10 08/08/16 11:13 White Blood Count 16.7 x10^3/uL (4.0-11.0) Red Blood Count 4.54 x10^6/uL (4.30-5.70) Hemoglobin 15.0 g/dL (13.0-17.5) Hematocrit 44.0 % (39.0-53.0) Mean Corpuscular Volume 97 fL (79-100) Mean Corpuscular Hemoglobin 33 pg (25-35) Mean Corpuscular Hemoglobin Concent 34 g/dL (31-37) Red Cell Distribution Width 14.1 % (11.5-14.5) Platelet Count 312 x10^3/uL (140-400) Neutrophils (%) (Auto) 72 % (31-73) Lymphocytes (%) (Auto) 23 % (24-48) Monocytes (%) (Auto) 4 % (0-9) Eosinophils (%) (Auto) 1 % (0-3) Basophils (%) (Auto) 0 % (0-3) Neutrophils # (Auto) 12.0 x10^3uL (1.8-7.7) Lymphocytes # (Auto) 3.8 x10^3/uL (1.0-4.8) Monocytes # (Auto) 0.7 x10^3/uL (0.0-1.1) Eosinophils # (Auto) 0.2 x10^3/uL (0.0-0.7) Basophils # (Auto) 0.1 x10^3/uL (0.0-0.2) Prothrombin Time 14.6 SEC (11.7-14.0) Prothromb Time International Ratio 1.2 (0.8-1.1) Activated Partial Thromboplast Time 30 SEC (24-38) Sodium Level 140 mmol/L (136-145) Potassium Level 4.0 mmol/L (3.5-5.1) Chloride Level 102 mmol/L (98-107) Carbon Dioxide Level 17 mmol/L (21-32) Anion Gap 21 (6-14) Blood Urea Nitrogen 15 mg/dL (8-26) Creatinine 1.1 mg/dL (0.7-1.3) Estimated GFR (Cockcroft-Gault) 67.4 BUN/Creatinine Ratio 14 (6-20) Glucose Level 166 mg/dL (70-99) Calcium Level 9.6 mg/dL (8.5-10.1) Magnesium Level 2.1 mg/dL (1.8-2.4) Total Bilirubin 0.9 mg/dL (0.2-1.0) Aspartate Amino Transf (AST/SGOT) 48 U/L (15-37) Alanine Aminotransferase (ALT/SGPT) 38 U/L (16-63) Alkaline Phosphatase 87 U/L (46-116) Creatine Kinase 89 U/L (39-308) Troponin I Quantitative < 0.017 ng/mL (0.000-0.055) [id number] Natriuretic Peptide 1595 pg/mL (0-124) Total Protein 8.2 g/dL (6.4-8.2) Albumin 4.0 g/dL (3.4-5.0) Albumin/Globulin Ratio 1.0 (1.0-1.7) Lipase 213 U/L (73-393) Ethyl Alcohol Level < 10 mg/dL (0-10) Urine Collection Type Unknown Urine Color Yellow Urine Clarity Clear Urine pH 6.0 Urine Specific [place] 1.020 Urine Protein 30 mg/dL (NEG-TRACE) Urine Glucose (UA) Negative mg/dL (NEG) Urine Ketones (Stick) Trace mg/dL (NEG) Urine Blood Small (NEG) Urine Nitrite Negative (NEG) Urine Bilirubin Negative (NEG) Urine Urobilinogen Dipstick 2.0 mg/dL (0.2 mg/dL) Urine Leukocyte Esterase Negative (NEG) Urine RBC 6-10 /HPF (0-2) Urine WBC 1-4 /HPF (0-4) Urine Squamous Epithelial Cells Few /LPF Urine Bacteria Few /HPF (0-FEW) Urine Hyaline Casts Many /HPF Urine Mucus Marked /LPF Urine Sperm Present /HPF Urine Opiates Screen Neg (NEG) Urine Methadone Screen Neg (NEG) Urine Barbiturates Neg (NEG) Urine Phencyclidine Screen Neg (NEG) Urine Amphetamine/Methamphetamine Neg (NEG) Urine Benzodiazepines Screen Neg (NEG) Urine Cocaine Screen Neg (NEG) Urine Cannabinoids Screen Pos (NEG) Urine Ethyl Alcohol Neg (NEG) Lactic Acid Level 17.2 mmol/L (0.4-2.0) Ammonia 254 mcmol/L (11-34) Test 08/08/16 12:30 08/08/16 17:00 08/08/16 23:20 08/09/16 04:20 O2 Saturation 100 % (92-99) Arterial Blood pH 7.30 (7.35-7.45) Arterial Blood pCO2 at Patient Temp 37 mmHg (35-46) Arterial Blood pO2 at Patient Temp > 503 mmHg (65-108) Arterial Blood HCO3 18 mmol/L (21-28) Arterial Blood Base Excess -8 mmol/L (-3-3) Oxyhemoglobin 98.6 % Methemoglobin 0.5 % (0.0-1.9) Carbon Monoxide, Quantitative 0.5 % (0.0-1.9) FiO2 100 Lactic Acid Level 1.1 mmol/L (0.4-2.0) Troponin I Quantitative 0.034 ng/mL (0.000-0.055) 0.031 ng/mL (0.000-0.055) White Blood Count 13.1 x10^3/uL (4.0-11.0) Red Blood Count 4.28 x10^6/uL (4.30-5.70) Hemoglobin 13.9 g/dL (13.0-17.5) Hematocrit 42.1 % (39.0-53.0) Mean Corpuscular Volume 98 fL (79-100) Mean Corpuscular Hemoglobin 33 pg (25-35) Mean Corpuscular Hemoglobin Concent 33 g/dL (31-37) Red Cell Distribution Width 14.1 % (11.5-14.5) Platelet Count 215 x10^3/uL (140-400) Neutrophils (%) (Auto) 80 % (31-73) Lymphocytes (%) (Auto) 10 % (24-48) Monocytes (%) (Auto) 10 % (0-9) Eosinophils (%) (Auto) 0 % (0-3) Basophils (%) (Auto) 0 % (0-3) Neutrophils # (Auto) 10.5 x10^3uL (1.8-7.7) Lymphocytes # (Auto) 1.2 x10^3/uL (1.0-4.8) Monocytes # (Auto) 1.3 x10^3/uL (0.0-1.1) Eosinophils # (Auto) 0.0 x10^3/uL (0.0-0.7) Basophils # (Auto) 0.0 x10^3/uL (0.0-0.2) Sodium Level 140 mmol/L (136-145) Potassium Level 4.0 mmol/L (3.5-5.1) Chloride Level 103 mmol/L (98-107) Carbon Dioxide Level 21 mmol/L (21-32) Anion Gap 16 (6-14) Blood Urea Nitrogen 18 mg/dL (8-26) Creatinine 1.1 mg/dL (0.7-1.3) Estimated GFR (Cockcroft-Gault) 67.4 Glucose Level 115 mg/dL (70-99) Calcium Level 8.9 mg/dL (8.5-10.1) Test 08/09/16 07:30 O2 Saturation 98 % (92-99) Arterial Blood pH 7.40 (7.35-7.45) Arterial Blood pCO2 at Patient Temp 34 mmHg (35-46) Arterial Blood pO2 at Patient Temp 134 mmHg (65-108) Arterial Blood HCO3 21 mmol/L (21-28) Arterial Blood Base Excess -3 mmol/L (-3-3) FiO2 40 IMAGES IMAGES CXR: FINDINGS: A frontal view of the chest is obtained. An endotracheal tube has its tip 6 cm above the joan. A nasogastric tube has its tip looped in the stomach. Hyperinflation suggests chronic obstructive pulmonary disease. There are no confluent infiltrates. There is no pneumothorax or pleural effusion. The heart is not enlarged. There are atherosclerotic calcifications of the aorta. IMPRESSION: 1. Hyperinflation. No confluent infiltrates. EKG EKG atrial fib RVR on 08/08/2016 ECHOCARDIOGRAM ECHOCARDIOGRAM 02/02/2016: TTE: Left ventricle systolic function is normal. The Ejection Fraction is 50-55%. There is normal LV segmental wall motion. Doppler and Color Flow revealed trace to mild tricuspid regurgitation. The PA pressure was estimated at 26 mmHg. Technically difficult study. ASSESSMENT/PLAN ASSESSMENT/PLAN 1. atrial fib with RVR 2nd episode since 01/2016 converted after diltiazem for rate control K and Mg WNL poor candidate for OAC given medical non-compliance and ETOH abuse (also without financial means) 2. acute respiratory failure per PULM 3. seizure - ? per neuro ? abrupt cessation of ETOH - family unaware 4. 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
[2016-08-09] MEDS: PANTOPRAZOLE IV PUSH 40 MG VIAL. IVP SCH (10:00)
--- NOTE | 2016-08-09 10:02 | PDOC ---
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 (short term memory loss). consult GI. Paroxysmal, Afib: on PO Cardizem, Echocardiogram d/w at bedside, answered all her questions. old records reviewed. cc time 33 min. History of Present Illness History of Present Illness no acute events. Vitals Vitals Vital Signs Date Time Temp Pulse Resp B/P (MAP) Pulse Ox O2 Delivery O2 Flow Rate FiO2 08/09/16 09:00 63 24 101/66 (78) 100 Ventilator 08/09/16 08:00 98.0 98.0 Physical Exam General: Other (sedated and intubated. ) Heart: Normal S1, Normal S2 Lungs: Clear Abdomen: Normal bowel sounds Extremities: No clubbing Skin: No rashes Labs LABS Laboratory Tests Test 08/08/16 10:35 08/08/16 10:37 08/08/16 11:10 08/08/16 11:13 White Blood Count 16.7 x10^3/uL (4.0-11.0) Red Blood Count 4.54 x10^6/uL (4.30-5.70) Hemoglobin 15.0 g/dL (13.0-17.5) Hematocrit 44.0 % (39.0-53.0) Mean Corpuscular Volume 97 fL (79-100) Mean Corpuscular Hemoglobin 33 pg (25-35) Mean Corpuscular Hemoglobin Concent 34 g/dL (31-37) Red Cell Distribution Width 14.1 % (11.5-14.5) Platelet Count 312 x10^3/uL (140-400) Neutrophils (%) (Auto) 72 % (31-73) Lymphocytes (%) (Auto) 23 % (24-48) Monocytes (%) (Auto) 4 % (0-9) Eosinophils (%) (Auto) 1 % (0-3) Basophils (%) (Auto) 0 % (0-3) Neutrophils # (Auto) 12.0 x10^3uL (1.8-7.7) Lymphocytes # (Auto) 3.8 x10^3/uL (1.0-4.8) Monocytes # (Auto) 0.7 x10^3/uL (0.0-1.1) Eosinophils # (Auto) 0.2 x10^3/uL (0.0-0.7) Basophils # (Auto) 0.1 x10^3/uL (0.0-0.2) Prothrombin Time 14.6 SEC (11.7-14.0) Prothromb Time International Ratio 1.2 (0.8-1.1) Activated Partial Thromboplast Time 30 SEC (24-38) Sodium Level 140 mmol/L (136-145) Potassium Level 4.0 mmol/L (3.5-5.1) Chloride Level 102 mmol/L (98-107) Carbon Dioxide Level 17 mmol/L (21-32) Anion Gap 21 (6-14) Blood Urea Nitrogen 15 mg/dL (8-26) Creatinine 1.1 mg/dL (0.7-1.3) Estimated GFR (Cockcroft-Gault) 67.4 BUN/Creatinine Ratio 14 (6-20) Glucose Level 166 mg/dL (70-99) Calcium Level 9.6 mg/dL (8.5-10.1) Magnesium Level 2.1 mg/dL (1.8-2.4) Total Bilirubin 0.9 mg/dL (0.2-1.0) Aspartate Amino Transf (AST/SGOT) 48 U/L (15-37) Alanine Aminotransferase (ALT/SGPT) 38 U/L (16-63) Alkaline Phosphatase 87 U/L (46-116) Creatine Kinase 89 U/L (39-308) Troponin I Quantitative < 0.017 ng/mL (0.000-0.055) TL-Bfq-Y-Type Natriuretic Peptide 1595 pg/mL (0-124) Total Protein 8.2 g/dL (6.4-8.2) Albumin 4.0 g/dL (3.4-5.0) Albumin/Globulin Ratio 1.0 (1.0-1.7) Lipase 213 U/L (73-393) Ethyl Alcohol Level < 10 mg/dL (0-10) Urine Collection Type Unknown Urine Color Yellow Urine Clarity Clear Urine pH 6.0 Urine Specific [place] 1.020 Urine Protein 30 mg/dL (NEG-TRACE) Urine Glucose (UA) Negative mg/dL (NEG) Urine Ketones (Stick) Trace mg/dL (NEG) Urine Blood Small (NEG) Urine Nitrite Negative (NEG) Urine Bilirubin Negative (NEG) Urine Urobilinogen Dipstick 2.0 mg/dL (0.2 mg/dL) Urine Leukocyte Esterase Negative (NEG) Urine RBC 6-10 /HPF (0-2) Urine WBC 1-4 /HPF (0-4) Urine Squamous Epithelial Cells Few /LPF Urine Bacteria Few /HPF (0-FEW) Urine Hyaline Casts Many /HPF Urine Mucus Marked /LPF Urine Sperm Present /HPF Urine Opiates Screen Neg (NEG) Urine Methadone Screen Neg (NEG) Urine Barbiturates Neg (NEG) Urine Phencyclidine Screen Neg (NEG) Urine Amphetamine/Methamphetamine Neg (NEG) Urine Benzodiazepines Screen Neg (NEG) Urine Cocaine Screen Neg (NEG) Urine Cannabinoids Screen Pos (NEG) Urine Ethyl Alcohol Neg (NEG) Lactic Acid Level 17.2 mmol/L (0.4-2.0) Ammonia 254 mcmol/L (11-34) Test 08/08/16 12:30 08/08/16 17:00 08/08/16 23:20 08/09/16 04:20 O2 Saturation 100 % (92-99) Arterial Blood pH 7.30 (7.35-7.45) Arterial Blood pCO2 at Patient Temp 37 mmHg (35-46) Arterial Blood pO2 at Patient Temp > 503 mmHg (65-108) Arterial Blood HCO3 18 mmol/L (21-28) Arterial Blood Base Excess -8 mmol/L (-3-3) Oxyhemoglobin 98.6 % Methemoglobin 0.5 % (0.0-1.9) Carbon Monoxide, Quantitative 0.5 % (0.0-1.9) FiO2 100 Lactic Acid Level 1.1 mmol/L (0.4-2.0) Troponin I Quantitative 0.034 ng/mL (0.000-0.055) 0.031 ng/mL (0.000-0.055) White Blood Count 13.1 x10^3/uL (4.0-11.0) Red Blood Count 4.28 x10^6/uL (4.30-5.70) Hemoglobin 13.9 g/dL (13.0-17.5) Hematocrit 42.1 % (39.0-53.0) Mean Corpuscular Volume 98 fL (79-100) Mean Corpuscular Hemoglobin 33 pg (25-35) Mean Corpuscular Hemoglobin Concent 33 g/dL (31-37) Red Cell Distribution Width 14.1 % (11.5-14.5) Platelet Count 215 x10^3/uL (140-400) Neutrophils (%) (Auto) 80 % (31-73) Lymphocytes (%) (Auto) 10 % (24-48) Monocytes (%) (Auto) 10 % (0-9) Eosinophils (%) (Auto) 0 % (0-3) Basophils (%) (Auto) 0 % (0-3) Neutrophils # (Auto) 10.5 x10^3uL (1.8-7.7) Lymphocytes # (Auto) 1.2 x10^3/uL (1.0-4.8) Monocytes # (Auto) 1.3 x10^3/uL (0.0-1.1) Eosinophils # (Auto) 0.0 x10^3/uL (0.0-0.7) Basophils # (Auto) 0.0 x10^3/uL (0.0-0.2) Sodium Level 140 mmol/L (136-145) Potassium Level 4.0 mmol/L (3.5-5.1) Chloride Level 103 mmol/L (98-107) Carbon Dioxide Level 21 mmol/L (21-32) Anion Gap 16 (6-14) Blood Urea Nitrogen 18 mg/dL (8-26) Creatinine 1.1 mg/dL (0.7-1.3) Estimated GFR (Cockcroft-Gault) 67.4 Glucose Level 115 mg/dL (70-99) Calcium Level 8.9 mg/dL (8.5-10.1) Test 08/09/16 07:30 O2 Saturation 98 % (92-99) Arterial Blood pH 7.40 (7.35-7.45) Arterial Blood pCO2 at Patient Temp 34 mmHg (35-46) Arterial Blood pO2 at Patient Temp 134 mmHg (65-108) Arterial Blood HCO3 21 mmol/L (21-28) Arterial Blood Base Excess -3 mmol/L (-3-3) FiO2 40 Assessment and Plan Assessmemt and Plan Problems Medical Problems: (1) Alcohol withdrawal Status: Acute (2) Hepatic encephalopathy Status: Acute (3) Lactic acid acidosis Status: Acute (4) Respiratory failure Status: Acute Problems: Comment Review of Relevant I have reviewed the following items chikis (where applicable) has been applied. Labs Laboratory Tests Test 08/08/16 10:35 08/08/16 10:37 08/08/16 11:10 08/08/16 11:13 White Blood Count 16.7 x10^3/uL (4.0-11.0) Red Blood Count 4.54 x10^6/uL (4.30-5.70) Hemoglobin 15.0 g/dL (13.0-17.5) Hematocrit 44.0 % (39.0-53.0) Mean Corpuscular Volume 97 fL (79-100) Mean Corpuscular Hemoglobin 33 pg (25-35) Mean Corpuscular Hemoglobin Concent 34 g/dL (31-37) Red Cell Distribution Width 14.1 % (11.5-14.5) Platelet Count 312 x10^3/uL (140-400) Neutrophils (%) (Auto) 72 % (31-73) Lymphocytes (%) (Auto) 23 % (24-48) Monocytes (%) (Auto) 4 % (0-9) Eosinophils (%) (Auto) 1 % (0-3) Basophils (%) (Auto) 0 % (0-3) Neutrophils # (Auto) 12.0 x10^3uL (1.8-7.7) Lymphocytes # (Auto) 3.8 x10^3/uL (1.0-4.8) Monocytes # (Auto) 0.7 x10^3/uL (0.0-1.1) Eosinophils # (Auto) 0.2 x10^3/uL (0.0-0.7) Basophils # (Auto) 0.1 x10^3/uL (0.0-0.2) Prothrombin Time 14.6 SEC (11.7-14.0) Prothromb Time International Ratio 1.2 (0.8-1.1) Activated Partial Thromboplast Time 30 SEC (24-38) Sodium Level 140 mmol/L (136-145) Potassium Level 4.0 mmol/L (3.5-5.1) Chloride Level 102 mmol/L (98-107) Carbon Dioxide Level 17 mmol/L (21-32) Anion Gap 21 (6-14) Blood Urea Nitrogen 15 mg/dL (8-26) Creatinine 1.1 mg/dL (0.7-1.3) Estimated GFR (Cockcroft-Gault) 67.4 BUN/Creatinine Ratio 14 (6-20) Glucose Level 166 mg/dL (70-99) Calcium Level 9.6 mg/dL (8.5-10.1) Magnesium Level 2.1 mg/dL (1.8-2.4) Total Bilirubin 0.9 mg/dL (0.2-1.0) Aspartate Amino Transf (AST/SGOT) 48 U/L (15-37) Alanine Aminotransferase (ALT/SGPT) 38 U/L (16-63) Alkaline Phosphatase 87 U/L (46-116) Creatine Kinase 89 U/L (39-308) Troponin I Quantitative < 0.017 ng/mL (0.000-0.055) WC-Mcl-N-Type Natriuretic Peptide 1595 pg/mL (0-124) Total Protein 8.2 g/dL (6.4-8.2) Albumin 4.0 g/dL (3.4-5.0) Albumin/Globulin Ratio 1.0 (1.0-1.7) Lipase 213 U/L (73-393) Ethyl Alcohol Level < 10 mg/dL (0-10) Urine Collection Type Unknown Urine Color Yellow Urine Clarity Clear Urine pH 6.0 Urine Specific [place] 1.020 Urine Protein 30 mg/dL (NEG-TRACE) Urine Glucose (UA) Negative mg/dL (NEG) Urine Ketones (Stick) Trace mg/dL (NEG) Urine Blood Small (NEG) Urine Nitrite Negative (NEG) Urine Bilirubin Negative (NEG) Urine Urobilinogen Dipstick 2.0 mg/dL (0.2 mg/dL) Urine Leukocyte Esterase Negative (NEG) Urine RBC 6-10 /HPF (0-2) Urine WBC 1-4 /HPF (0-4) Urine Squamous Epithelial Cells Few /LPF Urine Bacteria Few /HPF (0-FEW) Urine Hyaline Casts Many /HPF Urine Mucus Marked /LPF Urine Sperm Present /HPF Urine Opiates Screen Neg (NEG) Urine Methadone Screen Neg (NEG) Urine Barbiturates Neg (NEG) Urine Phencyclidine Screen Neg (NEG) Urine Amphetamine/Methamphetamine Neg (NEG) Urine Benzodiazepines Screen Neg (NEG) Urine Cocaine Screen Neg (NEG) Urine Cannabinoids Screen Pos (NEG) Urine Ethyl Alcohol Neg (NEG) Lactic Acid Level 17.2 mmol/L (0.4-2.0) Ammonia 254 mcmol/L (11-34) Test 08/08/16 12:30 08/08/16 17:00 08/08/16 23:20 08/09/16 04:20 O2 Saturation 100 % (92-99) Arterial Blood pH 7.30 (7.35-7.45) Arterial Blood pCO2 at Patient Temp 37 mmHg (35-46) Arterial Blood pO2 at Patient Temp > 503 mmHg (65-108) Arterial Blood HCO3 18 mmol/L (21-28) Arterial Blood Base Excess -8 mmol/L (-3-3) Oxyhemoglobin 98.6 % Methemoglobin 0.5 % (0.0-1.9) Carbon Monoxide, Quantitative 0.5 % (0.0-1.9) FiO2 100 Lactic Acid Level 1.1 mmol/L (0.4-2.0) Troponin I Quantitative 0.034 ng/mL (0.000-0.055) 0.031 ng/mL (0.000-0.055) White Blood Count 13.1 x10^3/uL (4.0-11.0) Red Blood Count 4.28 x10^6/uL (4.30-5.70) Hemoglobin 13.9 g/dL (13.0-17.5) Hematocrit 42.1 % (39.0-53.0) Mean Corpuscular Volume 98 fL (79-100) Mean Corpuscular Hemoglobin 33 pg (25-35) Mean Corpuscular Hemoglobin Concent 33 g/dL (31-37) Red Cell Distribution Width 14.1 % (11.5-14.5) Platelet Count 215 x10^3/uL (140-400) Neutrophils (%) (Auto) 80 % (31-73) Lymphocytes (%) (Auto) 10 % (24-48) Monocytes (%) (Auto) 10 % (0-9) Eosinophils (%) (Auto) 0 % (0-3) Basophils (%) (Auto) 0 % (0-3) Neutrophils # (Auto) 10.5 x10^3uL (1.8-7.7) Lymphocytes # (Auto) 1.2 x10^3/uL (1.0-4.8) Monocytes # (Auto) 1.3 x10^3/uL (0.0-1.1) Eosinophils # (Auto) 0.0 x10^3/uL (0.0-0.7) Basophils # (Auto) 0.0 x10^3/uL (0.0-0.2) Sodium Level 140 mmol/L (136-145) Potassium Level 4.0 mmol/L (3.5-5.1) Chloride Level 103 mmol/L (98-107) Carbon Dioxide Level 21 mmol/L (21-32) Anion Gap 16 (6-14) Blood Urea Nitrogen 18 mg/dL (8-26) Creatinine 1.1 mg/dL (0.7-1.3) Estimated GFR (Cockcroft-Gault) 67.4 Glucose Level 115 mg/dL (70-99) Calcium Level 8.9 mg/dL (8.5-10.1) Test 08/09/16 07:30 O2 Saturation 98 % (92-99) Arterial Blood pH 7.40 (7.35-7.45) Arterial Blood pCO2 at Patient Temp 34 mmHg (35-46) Arterial Blood pO2 at Patient Temp 134 mmHg (65-108) Arterial Blood HCO3 21 mmol/L (21-28) Arterial Blood Base Excess -3 mmol/L (-3-3) FiO2 40 Laboratory Tests Test 08/08/16 10:35 08/08/16 10:37 08/08/16 11:10 08/08/16 11:13 White Blood Count 16.7 x10^3/uL (4.0-11.0) Red Blood Count 4.54 x10^6/uL (4.30-5.70) Hemoglobin 15.0 g/dL (13.0-17.5) Hematocrit 44.0 % (39.0-53.0) Mean Corpuscular Volume 97 fL (79-100) Mean Corpuscular Hemoglobin 33 pg (25-35) Mean Corpuscular Hemoglobin Concent 34 g/dL (31-37) Red Cell Distribution Width 14.1 % (11.5-14.5) Platelet Count 312 x10^3/uL (140-400) Neutrophils (%) (Auto) 72 % (31-73) Lymphocytes (%) (Auto) 23 % (24-48) Monocytes (%) (Auto) 4 % (0-9) Eosinophils (%) (Auto) 1 % (0-3) Basophils (%) (Auto) 0 % (0-3) Neutrophils # (Auto) 12.0 x10^3uL (1.8-7.7) Lymphocytes # (Auto) 3.8 x10^3/uL (1.0-4.8) Monocytes # (Auto) 0.7 x10^3/uL (0.0-1.1) Eosinophils # (Auto) 0.2 x10^3/uL (0.0-0.7) Basophils # (Auto) 0.1 x10^3/uL (0.0-0.2) Prothrombin Time 14.6 SEC (11.7-14.0) Prothromb Time International Ratio 1.2 (0.8-1.1) Activated Partial Thromboplast Time 30 SEC (24-38) Sodium Level 140 mmol/L (136-145) Potassium Level 4.0 mmol/L (3.5-5.1) Chloride Level 102 mmol/L (98-107) Carbon Dioxide Level 17 mmol/L (21-32) Anion Gap 21 (6-14) Blood Urea Nitrogen 15 mg/dL (8-26) Creatinine 1.1 mg/dL (0.7-1.3) Estimated GFR (Cockcroft-Gault) 67.4 BUN/Creatinine Ratio 14 (6-20) Glucose Level 166 mg/dL (70-99) Calcium Level 9.6 mg/dL (8.5-10.1) Magnesium Level 2.1 mg/dL (1.8-2.4) Total Bilirubin 0.9 mg/dL (0.2-1.0) Aspartate Amino Transf (AST/SGOT) 48 U/L (15-37) Alanine Aminotransferase (ALT/SGPT) 38 U/L (16-63) Alkaline Phosphatase 87 U/L (46-116) Creatine Kinase 89 U/L (39-308) Troponin I Quantitative < 0.017 ng/mL (0.000-0.055) AM-Aky-C-Type Natriuretic Peptide 1595 pg/mL (0-124) Total Protein 8.2 g/dL (6.4-8.2) Albumin 4.0 g/dL (3.4-5.0) Albumin/Globulin Ratio 1.0 (1.0-1.7) Lipase 213 U/L (73-393) Ethyl Alcohol Level < 10 mg/dL (0-10) Urine Collection Type Unknown Urine Color Yellow Urine Clarity Clear Urine pH 6.0 Urine Specific [place] 1.020 Urine Protein 30 mg/dL (NEG-TRACE) Urine Glucose (UA) Negative mg/dL (NEG) Urine Ketones (Stick) Trace mg/dL (NEG) Urine Blood Small (NEG) Urine Nitrite Negative (NEG) Urine Bilirubin Negative (NEG) Urine Urobilinogen Dipstick 2.0 mg/dL (0.2 mg/dL) Urine Leukocyte Esterase Negative (NEG) Urine RBC 6-10 /HPF (0-2) Urine WBC 1-4 /HPF (0-4) Urine Squamous Epithelial Cells Few /LPF Urine Bacteria Few /HPF (0-FEW) Urine Hyaline Casts Many /HPF Urine Mucus Marked /LPF Urine Sperm Present /HPF Urine Opiates Screen Neg (NEG) Urine Methadone Screen Neg (NEG) Urine Barbiturates Neg (NEG) Urine Phencyclidine Screen Neg (NEG) Urine Amphetamine/Methamphetamine Neg (NEG) Urine Benzodiazepines Screen Neg (NEG) Urine Cocaine Screen Neg (NEG) Urine Cannabinoids Screen Pos (NEG) Urine Ethyl Alcohol Neg (NEG) Lactic Acid Level 17.2 mmol/L (0.4-2.0) Ammonia 254 mcmol/L (11-34) Test 08/08/16 12:30 08/08/16 17:00 08/08/16 23:20 08/09/16 04:20 O2 Saturation 100 % (92-99) Arterial Blood pH 7.30 (7.35-7.45) Arterial Blood pCO2 at Patient Temp 37 mmHg (35-46) Arterial Blood pO2 at Patient Temp > 503 mmHg (65-108) Arterial Blood HCO3 18 mmol/L (21-28) Arterial Blood Base Excess -8 mmol/L (-3-3) Oxyhemoglobin 98.6 % Methemoglobin 0.5 % (0.0-1.9) Carbon Monoxide, Quantitative 0.5 % (0.0-1.9) FiO2 100 Lactic Acid Level 1.1 mmol/L (0.4-2.0) Troponin I Quantitative 0.034 ng/mL (0.000-0.055) 0.031 ng/mL (0.000-0.055) White Blood Count 13.1 x10^3/uL (4.0-11.0) Red Blood Count 4.28 x10^6/uL (4.30-5.70) Hemoglobin 13.9 g/dL (13.0-17.5) Hematocrit 42.1 % (39.0-53.0) Mean Corpuscular Volume 98 fL (79-100) Mean Corpuscular Hemoglobin 33 pg (25-35) Mean Corpuscular Hemoglobin Concent 33 g/dL (31-37) Red Cell Distribution Width 14.1 % (11.5-14.5) Platelet Count 215 x10^3/uL (140-400) Neutrophils (%) (Auto) 80 % (31-73) Lymphocytes (%) (Auto) 10 % (24-48) Monocytes (%) (Auto) 10 % (0-9) Eosinophils (%) (Auto) 0 % (0-3) Basophils (%) (Auto) 0 % (0-3) Neutrophils # (Auto) 10.5 x10^3uL (1.8-7.7) Lymphocytes # (Auto) 1.2 x10^3/uL (1.0-4.8) Monocytes # (Auto) 1.3 x10^3/uL (0.0-1.1) Eosinophils # (Auto) 0.0 x10^3/uL (0.0-0.7) Basophils # (Auto) 0.0 x10^3/uL (0.0-0.2) Sodium Level 140 mmol/L (136-145) Potassium Level 4.0 mmol/L (3.5-5.1) Chloride Level 103 mmol/L (98-107) Carbon Dioxide Level 21 mmol/L (21-32) Anion Gap 16 (6-14) Blood Urea Nitrogen 18 mg/dL (8-26) Creatinine 1.1 mg/dL (0.7-1.3) Estimated GFR (Cockcroft-Gault) 67.4 Glucose Level 115 mg/dL (70-99) Calcium Level 8.9 mg/dL (8.5-10.1) Test 08/09/16 07:30 O2 Saturation 98 % (92-99) Arterial Blood pH 7.40 (7.35-7.45) Arterial Blood pCO2 at Patient Temp 34 mmHg (35-46) Arterial Blood pO2 at Patient Temp 134 mmHg (65-108) Arterial Blood HCO3 21 mmol/L (21-28) Arterial Blood Base Excess -3 mmol/L (-3-3) FiO2 40 Medications Current Medications Diltiazem HCl (Cardizem) 25 mg STK-MED ONCE .ROUTE ; Start 08/08/16 at 10:37; Stop 08/08/16 at 10:38; Status DC Diltiazem HCl 125 mg/Dextrose 125 ml @ 0 mls/hr CONT PRN IV SEE I/O RECORD; Start 08/08/16 at 11:00 Diltiazem HCl (Cardizem) 20 mg 1X ONCE IVP Last administered on 08/08/16 10: 40; Start 08/08/16 at 11:00; Stop 08/08/16 at 11:01; Status DC Lorazepam (Ativan) 2 mg STK-MED ONCE .ROUTE ; Start 08/08/16 at 10:55; Stop 01/14 at 10:56; Status DC Iohexol (Omnipaque 350 Mg/ml) 90 ml 1X ONCE IV ; Start 08/08/16 at 11:15; Stop 08/08/16 at 11:16; Status DC Propofol 20 ml @ 0 mls/hr 1X ONCE IV Last administered on 08/08/16 11:20; Start 08/08/16 at 11:15; Stop 08/08/16 at 11:16; Status DC Info (Do NOT chart on this entry -- for MONITORING) 1 each PRN DAILY PRN MC SEE COMMENTS; Start 08/08/16 at 11:15; Stop 08/10/16 at 11:14 Fentanyl Citrate (Fentanyl 2ml Vial) 100 mcg 1X ONCE IV Last administered on 11:03; Start 08/08/16 at 11:15; Stop 08/08/16 at 11:16; Status DC Fentanyl Citrate (Fentanyl 2ml Vial) 100 mcg 1X ONCE IV Last administered on 11:16; Start 08/08/16 at 11:15; Stop 08/08/16 at 11:16; Status DC Propofol 50 ml @ As Directed STK-MED ONCE IV ; Start 08/08/16 at 11:17; Stop 01/14 at 11:18; Status DC Ondansetron HCl (Zofran) 4 mg PRN Q8HRS PRN IV NAUSEA/VOMITING; Start 08/08/16 at 11:30; Stop 08/09/16 at 11:29 Fentanyl Citrate (Fentanyl 2ml Vial) 50 mcg PRN Q2HR PRN IV PAIN Last administered on 08/08/16 13:16; Start 08/08/16 at 11:30; Stop 08/09/16 at 11:29 Levetiracetam 1000 mg/Sodium Chloride 110 ml @ 440 mls/hr 1X ONCE IV Last administered on 08/08/16 11:39; Start 08/08/16 at 11:45; Stop 08/08/16 at 11:59 ; Status DC Fentanyl Citrate (Fentanyl 2ml Vial) 100 mcg 1X ONCE IV ; Start 08/08/16 at 11: 45; Stop 08/08/16 at 11:46; Status DC Propofol 50 ml @ As Directed STK-MED ONCE IV ; Start 08/08/16 at 12:09; Stop 01/14 at 12:10; Status DC Lorazepam (Ativan) 2 mg 1X ONCE IV ; Start 08/08/16 at 13:00; Stop 08/08/16 at 13:01; Status DC Succinylcholine Chloride (Anectine) 100 mg 1X ONCE IV ; Start 08/08/16 at 13:00 ; Stop 08/08/16 at 13:01; Status DC Etomidate (Amidate) 20 mg 1X ONCE IV ; Start 08/08/16 at 13:00; Stop 08/08/16 at 13:01; Status DC Propofol 100 ml @ 0 mls/hr CONT PRN IV PER PROTOCOL Last administered on 09:08; Start 08/08/16 at 13:45 Fentanyl Citrate (Fentanyl 2ml Vial) 50 mcg PRN Q1HR PRN IV COMM; Start at 13:45 Chlorhexidine Gluconate (Peridex) 15 ml BID MM Last administered on 08/09/16 09:08; Start 08/08/16 at 21:00 Ipratropium [place] (Atrovent) 0.5 mg RTQID NEB Last administered on 08/09/16 07:34; Start 08/08/16 at 16:00 Metoprolol Tartrate (Lopressor) 12.5 mg BID PO Last administered on 08/08/16 21:51; Start 08/08/16 at 14:30 Lorazepam (Ativan) 1 mg PRN Q4HRS PRN IV ANXIETY / AGITATION; Start 08/08/16 at 14:45 Levetiracetam (Keppra) 500 mg Q12HR PO Last administered on 08/09/16 09:13; Start 08/08/16 at 21:00 Multivitamins 10 ml/Folic Acid 1 mg/Thiamine HCl 100 mg/Sodium Chloride 1,011.2 ml @ 100 mls/ hr Q24H IV Last administered on 08/08/16 16:29; Start 08/08/16 at 16:00 Lorazepam (Ativan) 2 mg PRN Q4HRS PRN IV ANXIETY / AGITATION; Start 08/08/16 at 15:15 Aspirin ([facility] Aspirin) 325 mg DAILY PO Last administered on 08/09/16 09:09; Start 08/09/16 at 09:00 Diltiazem HCl (Cardizem 24hr Cd) 240 mg DAILY PO ; Start 08/09/16 at 09:00 Lactulose 20 gm Q48H PO Last administered on 08/09/16 09:13; Start 08/09/16 at 09:00 Pantoprazole Sodium (Protonix) 40 mg DAILYAC PO ; Start 08/09/16 at 07:30; Stop 08/09/16 at 09:36; Status DC Non-Formulary Medication 100 mg DAILY PO ; Start 08/09/16 at 09:00; Status UNV Pantoprazole Sodium (Protonix Vial) 40 mg DAILYAC IVP ; Start 08/09/16 at 10:00 Active Scripts Active Lactulose 20 Gm/30 Ml Solution 20 Gm PO QODAY Ativan (Lorazepam) 0.5 Mg Tablet 0.5 Mg PO BID Diltiazem 24HR Cd (Diltiazem Hcl) 240 Mg Cap.er.24h 240 Mg PO DAILY Vitamin B-1 (Thiamine Hcl) 100 Mg Tablet 100 Mg PO DAILY [place] 5-325 Tablet (Acetaminophen/Hydrocodone Bitart) 1 Each Tablet 1 Tab PO PRN Q6HRS PRN Reported Omeprazole 20 Mg Capsule.dr 20 Mg PO DAILY Zofran Odt (Ondansetron) 8 Mg Tab.rapdis 1 Tab PO PRN Q8HRS PRN [place] 4.2-0.7 mg Film (Buprenorphine HCl/Naloxone HCl) 1 Each Film 1 Each BC DAILY Vitals/I & O Vital Sign - Last 24 Hours 08/08/16 08/08/16 08/08/16 08/08/16 10:30 10:40 11:03 11:04 Temp 98.8 98.8 Pulse 177 177 120 Resp 26 23 25 B/P (MAP) 170/110 (130) 169/103 156/85 (108) Pulse Ox 93 O2 Delivery Room Air 08/08/16 08/08/16 08/08/16 08/08/16 11:16 11:17 11:18 11:30 Pulse 143 Resp 23 B/P (MAP) 138/86 (103) 174/105 (128) Pulse Ox 100 O2 Delivery Ventilator Ventilator 08/08/16 08/08/16 08/08/16 08/08/16 11:50 12:30 12:45 12:50 Pulse 117 98 Resp 14 18 B/P (MAP) 132/89 (103) 132/76 (94) Pulse Ox 100 100 O2 Delivery Ventilator Ventilator Mechanical Ventilator 08/08/16 08/08/16 08/08/16 08/08/16 13:00 13:16 13:50 14:00 Temp 100.0 100.0 Pulse 90 86 Resp 24 24 B/P (MAP) 121/107 (112) 146/88 (107) Pulse Ox 100 100 O2 Delivery Ventilator Ventilator Ventilator Ventilator 08/08/16 08/08/16 08/08/16 08/08/16 15:00 15:33 16:00 16:00 Temp 99.8 99.8 Pulse 84 82 Resp 24 24 B/P (MAP) 135/89 (104) 122/87 (99) Pulse Ox 100 100 100 O2 Delivery Ventilator Ventilator Ventilator Mechanical Ventilator 6/11/17 6/11/17 6/11/17 6/11/17 16:28 17:00 17:47 18:00 Pulse 83 82 76 Resp 24 24 B/P (MAP) 122/87 113/76 (88) 95/68 (77) Pulse Ox 100 100 100 O2 Delivery Ventilator Ventilator Ventilator 08/08/16 08/08/16 08/08/16 08/08/16 19:00 19:49 20:00 20:00 Temp 98.5 98.5 Pulse 89 86 Resp 24 24 B/P (MAP) 111/71 (84) 117/80 (92) Pulse Ox 98 100 99 O2 Delivery Ventilator Ventilator Mechanical Ventilator Ventilator 08/08/16 08/08/16 08/08/16 08/08/16 21:00 21:51 21:58 22:00 Pulse 87 87 83 Resp 24 24 B/P (MAP) 124/85 (98) 124/85 131/86 (101) Pulse Ox 99 100 100 O2 Delivery Ventilator Ventilator Ventilator 08/08/16 08/08/16 08/09/16 08/09/16 23:00 23:59 00:00 00:00 Temp 98.7 98.7 Pulse 82 79 Resp 24 24 B/P (MAP) 128/86 (100) 108/74 (85) Pulse Ox 100 100 100 O2 Delivery Ventilator Ventilator Mechanical Ventilator Ventilator 08/09/16 08/09/16 08/09/16 08/09/16 01:00 01:15 02:00 03:00 Temp 98.3 98.3 Pulse 77 68 77 Resp 24 24 24 B/P (MAP) 113/75 (88) 141/87 (105) 137/81 (99) Pulse Ox 100 100 100 100 O2 Delivery Ventilator Ventilator Ventilator Ventilator 08/09/16 08/09/16 08/09/16 08/09/16 03:01 04:00 04:00 05:00 Pulse 70 70 Resp 24 24 B/P (MAP) 156/88 (110) 120/76 (91) Pulse Ox 100 100 100 O2 Delivery Ventilator Mechanical Ventilator Ventilator Ventilator 08/09/16 08/09/16 08/09/16 08/09/16 05:17 06:00 07:00 07:18 Pulse 69 65 Resp 24 24 B/P (MAP) 85/61 (69) 137/80 (99) Pulse Ox 100 100 100 100 O2 Delivery Ventilator Ventilator Ventilator Ventilator 08/09/16 08/09/16 08/09/16 08:00 08:00 09:00 Temp 98.0 98.0 Pulse 60 63 Resp 24 24 B/P (MAP) 140/78 (98) 101/66 (78) Pulse Ox 100 100 O2 Delivery Ventilator Mechanical Ventilator Ventilator Intake and Output 08/08/16 08/08/16 08/09/16 14:59 22:59 06:59 Intake Total 116 ml 113.47 ml 1054 ml Output Total 175 ml 500 ml 250 ml Balance -59 ml -386.53 ml 804 ml JOAN GARDINER MD Aug 09, 2016 10:02
--- NOTE | 2016-08-09 11:37 | PDOC ---
PULMONARY PROGRESS NOTES Vitals Vital Signs Date Time Temp Pulse Resp B/P (MAP) Pulse Ox O2 Delivery O2 Flow Rate FiO2 08/09/16 11:19 100 Ventilator 08/09/16 11:00 66 24 100/66 (77) 08/09/16 08:00 98.0 98.0 Lungs: Clear Labs Laboratory Tests Test 08/08/16 10:35 08/08/16 10:37 08/08/16 11:10 08/08/16 11:13 White Blood Count 16.7 x10^3/uL (4.0-11.0) Red Blood Count 4.54 x10^6/uL (4.30-5.70) Hemoglobin 15.0 g/dL (13.0-17.5) Hematocrit 44.0 % (39.0-53.0) Mean Corpuscular Volume 97 fL (79-100) Mean Corpuscular Hemoglobin 33 pg (25-35) Mean Corpuscular Hemoglobin Concent 34 g/dL (31-37) Red Cell Distribution Width 14.1 % (11.5-14.5) Platelet Count 312 x10^3/uL (140-400) Neutrophils (%) (Auto) 72 % (31-73) Lymphocytes (%) (Auto) 23 % (24-48) Monocytes (%) (Auto) 4 % (0-9) Eosinophils (%) (Auto) 1 % (0-3) Basophils (%) (Auto) 0 % (0-3) Neutrophils # (Auto) 12.0 x10^3uL (1.8-7.7) Lymphocytes # (Auto) 3.8 x10^3/uL (1.0-4.8) Monocytes # (Auto) 0.7 x10^3/uL (0.0-1.1) Eosinophils # (Auto) 0.2 x10^3/uL (0.0-0.7) Basophils # (Auto) 0.1 x10^3/uL (0.0-0.2) Prothrombin Time 14.6 SEC (11.7-14.0) Prothromb Time International Ratio 1.2 (0.8-1.1) Activated Partial Thromboplast Time 30 SEC (24-38) Sodium Level 140 mmol/L (136-145) Potassium Level 4.0 mmol/L (3.5-5.1) Chloride Level 102 mmol/L (98-107) Carbon Dioxide Level 17 mmol/L (21-32) Anion Gap 21 (6-14) Blood Urea Nitrogen 15 mg/dL (8-26) Creatinine 1.1 mg/dL (0.7-1.3) Estimated GFR (Cockcroft-Gault) 67.4 BUN/Creatinine Ratio 14 (6-20) Glucose Level 166 mg/dL (70-99) Calcium Level 9.6 mg/dL (8.5-10.1) Magnesium Level 2.1 mg/dL (1.8-2.4) Total Bilirubin 0.9 mg/dL (0.2-1.0) Aspartate Amino Transf (AST/SGOT) 48 U/L (15-37) Alanine Aminotransferase (ALT/SGPT) 38 U/L (16-63) Alkaline Phosphatase 87 U/L (46-116) Creatine Kinase 89 U/L (39-308) Troponin I Quantitative < 0.017 ng/mL (0.000-0.055) EB-Zya-C-Type Natriuretic Peptide 1595 pg/mL (0-124) Total Protein 8.2 g/dL (6.4-8.2) Albumin 4.0 g/dL (3.4-5.0) Albumin/Globulin Ratio 1.0 (1.0-1.7) Lipase 213 U/L (73-393) Ethyl Alcohol Level < 10 mg/dL (0-10) Urine Collection Type Unknown Urine Color Yellow Urine Clarity Clear Urine pH 6.0 Urine Specific [place] 1.020 Urine Protein 30 mg/dL (NEG-TRACE) Urine Glucose (UA) Negative mg/dL (NEG) Urine Ketones (Stick) Trace mg/dL (NEG) Urine Blood Small (NEG) Urine Nitrite Negative (NEG) Urine Bilirubin Negative (NEG) Urine Urobilinogen Dipstick 2.0 mg/dL (0.2 mg/dL) Urine Leukocyte Esterase Negative (NEG) Urine RBC 6-10 /HPF (0-2) Urine WBC 1-4 /HPF (0-4) Urine Squamous Epithelial Cells Few /LPF Urine Bacteria Few /HPF (0-FEW) Urine Hyaline Casts Many /HPF Urine Mucus Marked /LPF Urine Sperm Present /HPF Urine Opiates Screen Neg (NEG) Urine Methadone Screen Neg (NEG) Urine Barbiturates Neg (NEG) Urine Phencyclidine Screen Neg (NEG) Urine Amphetamine/Methamphetamine Neg (NEG) Urine Benzodiazepines Screen Neg (NEG) Urine Cocaine Screen Neg (NEG) Urine Cannabinoids Screen Pos (NEG) Urine Ethyl Alcohol Neg (NEG) Lactic Acid Level 17.2 mmol/L (0.4-2.0) Ammonia 254 mcmol/L (11-34) Test 08/08/16 12:30 08/08/16 17:00 08/08/16 23:20 08/09/16 04:20 O2 Saturation 100 % (92-99) Arterial Blood pH 7.30 (7.35-7.45) Arterial Blood pCO2 at Patient Temp 37 mmHg (35-46) Arterial Blood pO2 at Patient Temp > 503 mmHg (65-108) Arterial Blood HCO3 18 mmol/L (21-28) Arterial Blood Base Excess -8 mmol/L (-3-3) Oxyhemoglobin 98.6 % Methemoglobin 0.5 % (0.0-1.9) Carbon Monoxide, Quantitative 0.5 % (0.0-1.9) FiO2 100 Lactic Acid Level 1.1 mmol/L (0.4-2.0) Troponin I Quantitative 0.034 ng/mL (0.000-0.055) 0.031 ng/mL (0.000-0.055) White Blood Count 13.1 x10^3/uL (4.0-11.0) Red Blood Count 4.28 x10^6/uL (4.30-5.70) Hemoglobin 13.9 g/dL (13.0-17.5) Hematocrit 42.1 % (39.0-53.0) Mean Corpuscular Volume 98 fL (79-100) Mean Corpuscular Hemoglobin 33 pg (25-35) Mean Corpuscular Hemoglobin Concent 33 g/dL (31-37) Red Cell Distribution Width 14.1 % (11.5-14.5) Platelet Count 215 x10^3/uL (140-400) Neutrophils (%) (Auto) 80 % (31-73) Lymphocytes (%) (Auto) 10 % (24-48) Monocytes (%) (Auto) 10 % (0-9) Eosinophils (%) (Auto) 0 % (0-3) Basophils (%) (Auto) 0 % (0-3) Neutrophils # (Auto) 10.5 x10^3uL (1.8-7.7) Lymphocytes # (Auto) 1.2 x10^3/uL (1.0-4.8) Monocytes # (Auto) 1.3 x10^3/uL (0.0-1.1) Eosinophils # (Auto) 0.0 x10^3/uL (0.0-0.7) Basophils # (Auto) 0.0 x10^3/uL (0.0-0.2) Sodium Level 140 mmol/L (136-145) Potassium Level 4.0 mmol/L (3.5-5.1) Chloride Level 103 mmol/L (98-107) Carbon Dioxide Level 21 mmol/L (21-32) Anion Gap 16 (6-14) Blood Urea Nitrogen 18 mg/dL (8-26) Creatinine 1.1 mg/dL (0.7-1.3) Estimated GFR (Cockcroft-Gault) 67.4 Glucose Level 115 mg/dL (70-99) Calcium Level 8.9 mg/dL (8.5-10.1) Test 08/09/16 07:30 08/09/16 10:25 O2 Saturation 98 % (92-99) Arterial Blood pH 7.40 (7.35-7.45) Arterial Blood pCO2 at Patient Temp 34 mmHg (35-46) Arterial Blood pO2 at Patient Temp 134 mmHg (65-108) Arterial Blood HCO3 21 mmol/L (21-28) Arterial Blood Base Excess -3 mmol/L (-3-3) FiO2 40 Ammonia 14 mcmol/L (11-34) Laboratory Tests Test 08/08/16 12:30 08/08/16 17:00 08/08/16 23:20 08/09/16 04:20 O2 Saturation 100 % (92-99) Arterial Blood pH 7.30 (7.35-7.45) Arterial Blood pCO2 at Patient Temp 37 mmHg (35-46) Arterial Blood pO2 at Patient Temp > 503 mmHg (65-108) Arterial Blood HCO3 18 mmol/L (21-28) Arterial Blood Base Excess -8 mmol/L (-3-3) Oxyhemoglobin 98.6 % Methemoglobin 0.5 % (0.0-1.9) Carbon Monoxide, Quantitative 0.5 % (0.0-1.9) FiO2 100 Lactic Acid Level 1.1 mmol/L (0.4-2.0) Troponin I Quantitative 0.034 ng/mL (0.000-0.055) 0.031 ng/mL (0.000-0.055) White Blood Count 13.1 x10^3/uL (4.0-11.0) Red Blood Count 4.28 x10^6/uL (4.30-5.70) Hemoglobin 13.9 g/dL (13.0-17.5) Hematocrit 42.1 % (39.0-53.0) Mean Corpuscular Volume 98 fL (79-100) Mean Corpuscular Hemoglobin 33 pg (25-35) Mean Corpuscular Hemoglobin Concent 33 g/dL (31-37) Red Cell Distribution Width 14.1 % (11.5-14.5) Platelet Count 215 x10^3/uL (140-400) Neutrophils (%) (Auto) 80 % (31-73) Lymphocytes (%) (Auto) 10 % (24-48) Monocytes (%) (Auto) 10 % (0-9) Eosinophils (%) (Auto) 0 % (0-3) Basophils (%) (Auto) 0 % (0-3) Neutrophils # (Auto) 10.5 x10^3uL (1.8-7.7) Lymphocytes # (Auto) 1.2 x10^3/uL (1.0-4.8) Monocytes # (Auto) 1.3 x10^3/uL (0.0-1.1) Eosinophils # (Auto) 0.0 x10^3/uL (0.0-0.7) Basophils # (Auto) 0.0 x10^3/uL (0.0-0.2) Sodium Level 140 mmol/L (136-145) Potassium Level 4.0 mmol/L (3.5-5.1) Chloride Level 103 mmol/L (98-107) Carbon Dioxide Level 21 mmol/L (21-32) Anion Gap 16 (6-14) Blood Urea Nitrogen 18 mg/dL (8-26) Creatinine 1.1 mg/dL (0.7-1.3) Estimated GFR (Cockcroft-Gault) 67.4 Glucose Level 115 mg/dL (70-99) Calcium Level 8.9 mg/dL (8.5-10.1) Test 08/09/16 07:30 08/09/16 10:25 O2 Saturation 98 % (92-99) Arterial Blood pH 7.40 (7.35-7.45) Arterial Blood pCO2 at Patient Temp 34 mmHg (35-46) Arterial Blood pO2 at Patient Temp 134 mmHg (65-108) Arterial Blood HCO3 21 mmol/L (21-28) Arterial Blood Base Excess -3 mmol/L (-3-3) FiO2 40 Ammonia 14 mcmol/L (11-34) Medications Active Scripts Medications Dose Route/Sig Max Daily Dose Days Date Category Lactulose 20 Gm/30 Ml Solution 20 Gm PO QODAY 02/03/16 Rx Ativan (Lorazepam) 0.5 Mg Tablet 0.5 Mg PO BID 02/03/16 Rx Diltiazem 24HR Cd (Diltiazem Hcl) 240 Mg Cap.er.24h 240 Mg PO DAILY 02/03/16 Rx Vitamin B-1 (Thiamine Hcl) 100 Mg Tablet 100 Mg PO DAILY 02/03/16 Rx Omeprazole 20 Mg Capsule.dr 20 Mg PO DAILY 01/31/16 Reported Zofran Odt (Ondansetron) 8 Mg Tab.rapdis 1 Tab PO PRN Q8HRS PRN 01/31/16 Reported [place] 4.2-0.7 mg Film (Buprenorphine HCl/Naloxone HCl) 1 Each Film 1 Each BC DAILY 01/31/16 Reported [place] 5-325 Tablet (Acetaminophen/Hydrocodone Bitart) 1 Each Tablet 1 Tab PO PRN Q6HRS PRN 12/01/15 Rx Impression . FULL NOTE DICTATED THANKS WILL EXTUBATE IF NO SIGN OF SEIZURES ONCE DIPR\JOSÉ MANUEL HAS BEEN D/C RANCHO WOODY MD Aug 09, 2016 11:36
[2016-08-09 11:59] LABS: VITAMIN-B12 538 pg/mL (247-911)
[2016-08-09 12:03] LABS: FOLATE > 24.00 ng/ml (3.2-20.0)
[2016-08-09] MEDS ORDERED: IOHEXOL 300 MG/ML 75 ML VIAL IV ONE (14:00)
[2016-08-09] MEDS ORDERED: CONTRAST GIVEN MC PRN (14:00)
--- NOTE | 2016-08-09 14:12 | RAD ---
MR BRAIN HISTORY: PRIOR MRI 01-31-17...PT CAME IN NON RESPONSIVE ? STROKE..PT HAS HX OF SIEZURES..ICU 4700 COMPARISON: 02/01/2016 TECHNIQUE: Axial diffusion weighted imaging was obtained. Additional sagittal T1, axial T1, axial FLAIR, and axial T2 weighted imaging of the brain was also performed. FINDINGS: There is a tiny focus of restricted diffusion in the posterior right frontal lobe at the junction of the precentral gyrus and middle frontal gyrus. There is no significant edema. There is no associated hemorrhage. No midline shift or mass effect. Ventricles are normal in size. Globes and orbits are within normal limits. Basal cisterns are patent. Arterial flow voids are maintained at the level of the skull base. There is mucosal thickening of the ethmoid air cells and sphenoid sinus. IMPRESSION: Tiny focus of restricted diffusion in the right frontal lobe at the junction of the precentral gyrus and middle frontal gyrus. No associated hemorrhage or significant edema. Electronically signed by: Iraj Wright MD (08/09/2016 2:08 PM)
--- NOTE | 2016-08-09 14:13 | PDOC2 ---
GI CONSULT Reason For Consult: Hep C, weight loss, decreased appetite, ?cancer HPI: HPI: 65 y/o male evaluated in ER for back pain, had a seizure (possible alcohol withdrawal), intubated, admitted to ICU. Out for imaging earlier, returned to see this afternoon. Pulm following, possible extubation later today. Cardiology also follow for A Fib RVR. H/o alcoholism and Hep C w/ previous liver biopsy, reportedly normal (unclear where). Lifelong h/o GI problems, n/v an decreased appetite more bothersome recently w/ >20 pound weight loss. Labs as below, significant for WBC 16.7 (now 13.1), normal Hgb and plt count, INR 1.2 , lactic acid 17.2 (now normal), BNP 1595, ammonia 254 (now 14). Has IV PPI and lactulose ordered Q 48 hours. Suggested on lactulose and omeprazole at home (per med list), family denies. Took reflux med at one point, also takes Metamucil Q a.m. Previous EGD and colonoscopy (perhaps at [facility]), reportedly unrevealing. PMH: PMH: per chart/staff - A Fib, HTN, Hep C, h/o narcotics addition on Suboxone, alcoholism FH: Family History: Other (h/o narcotics abuse, on Suboxone) Social History: ALCOHOL: heavy Drugs: Marijuana ROS: Unable to obtain. Vitals: Vitals: Vital Signs Date Time Temp Pulse Resp B/P (MAP) Pulse Ox O2 Delivery O2 Flow Rate FiO2 08/09/16 13:00 70 24 106/67 (80) 100 Ventilator 08/09/16 12:00 98.2 98.2 Labs: Labs: Laboratory Tests Test 08/08/16 17:00 08/08/16 23:20 08/09/16 04:20 08/09/16 07:30 Lactic Acid Level 1.1 mmol/L (0.4-2.0) Troponin I Quantitative 0.034 ng/mL (0.000-0.055) 0.031 ng/mL (0.000-0.055) White Blood Count 13.1 x10^3/uL (4.0-11.0) Red Blood Count 4.28 x10^6/uL (4.30-5.70) Hemoglobin 13.9 g/dL (13.0-17.5) Hematocrit 42.1 % (39.0-53.0) Mean Corpuscular Volume 98 fL (79-100) Mean Corpuscular Hemoglobin 33 pg (25-35) Mean Corpuscular Hemoglobin Concent 33 g/dL (31-37) Red Cell Distribution Width 14.1 % (11.5-14.5) Platelet Count 215 x10^3/uL (140-400) Neutrophils (%) (Auto) 80 % (31-73) Lymphocytes (%) (Auto) 10 % (24-48) Monocytes (%) (Auto) 10 % (0-9) Eosinophils (%) (Auto) 0 % (0-3) Basophils (%) (Auto) 0 % (0-3) Neutrophils # (Auto) 10.5 x10^3uL (1.8-7.7) Lymphocytes # (Auto) 1.2 x10^3/uL (1.0-4.8) Monocytes # (Auto) 1.3 x10^3/uL (0.0-1.1) Eosinophils # (Auto) 0.0 x10^3/uL (0.0-0.7) Basophils # (Auto) 0.0 x10^3/uL (0.0-0.2) Sodium Level 140 mmol/L (136-145) Potassium Level 4.0 mmol/L (3.5-5.1) Chloride Level 103 mmol/L (98-107) Carbon Dioxide Level 21 mmol/L (21-32) Anion Gap 16 (6-14) Blood Urea Nitrogen 18 mg/dL (8-26) Creatinine 1.1 mg/dL (0.7-1.3) Estimated GFR (Cockcroft-Gault) 67.4 Glucose Level 115 mg/dL (70-99) Calcium Level 8.9 mg/dL (8.5-10.1) O2 Saturation 98 % (92-99) Arterial Blood pH 7.40 (7.35-7.45) Arterial Blood pCO2 at Patient Temp 34 mmHg (35-46) Arterial Blood pO2 at Patient Temp 134 mmHg (65-108) Arterial Blood HCO3 21 mmol/L (21-28) Arterial Blood Base Excess -3 mmol/L (-3-3) FiO2 40 Test /02/13 10:25 Ammonia 14 mcmol/L (11-34) Vitamin B12 Level 538 pg/mL (247-911) Serum Folate > 24.00 ng/ml (3.2-20.0) Allergies: Coded Allergies: No Known Drug Allergies (Unverified , 12/01/15) Medications: Current Medications Medications (Trade) Dose Ordered Sig/Farzana Route PRN Reason Start Time Stop Time Status Last Admin Dose Admin Chlorhexidine Gluconate (Peridex) 15 ml BID MM 08/08/16 21:00 08/09/16 09:08 Ipratropium [place] (Atrovent) 0.5 mg RTQID NEB 08/08/16 16:00 08/09/16 11:18 Metoprolol Tartrate (Lopressor) 12.5 mg BID PO 08/08/16 14:30 08/08/16 21:51 Levetiracetam (Keppra) 500 mg Q12HR PO 08/08/16 21:00 08/09/16 09:13 Multivitamins 10 ml/Folic Acid 1 mg/Thiamine HCl 100 mg/Sodium Chloride 1,011.2 ml @ 100 mls/ hr Q24H IV 08/08/16 16:00 08/08/16 16:29 Aspirin (Zunilda Aspirin) 325 mg DAILY PO 08/09/16 09:00 08/09/16 09:09 Lactulose 20 gm Q48H PO 08/09/16 09:00 08/09/16 09:13 Imaging: Imaging: CXR 08/08/16 IMPRESSION: No acute or focal process. No significant change Chest CTA 08/08/16 IMPRESSION: No acute finding seen in the chest. Negative study for dissection. 7 cm air cavity in the left lower lobe most compatible with a bleb, bulla or pneumatocele. Head CT 08/08/16 IMPRESSION: No acute finding seen in the head. Brain MRI 08/09/16 IMPRESSION: Tiny focus of restricted diffusion in the right frontal lobe at the junction of the precentral gyrus and middle frontal gyrus. No associated hemorrhage or significant edema. CXR 08/09/16 IMPRESSION: 1. Hyperinflation. No confluent infiltrates. L-spine MRI 08/18/16 Impression: 1. There is no significant lumbar spinal stenosis. There is mild neural foramina compromise as stated. There are multilevel annular tears as stated. CT abd 08/09/16 Impression: 1. Mild fatty infiltration of the liver. No focal abnormality of the liver is seen. 2. No acute abnormality is seen. PE: GEN: intubated HEENT: LUNGS: HEART: ABD: EXTREMITY: SKIN: NEURO/PSYCH: A/P: A/P: Seizure -admitted to ICU, intubated -imaging as above H/o alcoholism, addictions -normal liver on CT on 01/2016, CT abd ordered this afternoon Hyperammonemia - resolved N/v, weight loss CRC screen -family reports previously normal colonoscopy -- CT abd unrevealing. Agree w/ PPI and lactulose. Other per Dr. Mortensen. CHEN LAURENT Aug 09, 2016 14:13
--- NOTE | 2016-08-09 15:17 | RAD ---
MRI Lumbar Spine without contrast History: Low back pain, acute onset mid back pain Technique: Multiplanar, multi sequential noncontrast MR imaging was performed of the lumbar spine. Contrast: None Comparison: None Findings: Lumbar vertebral body stature and AP alignment are preserved. Conus terminates at T12-L1. There is mild degenerative disc disease L2-3, mild disc desiccation L3-4 and L4-5. Mild edema of the anterior superior corner of L3 is probably reactive/degenerative in etiology. There are posterior and anterior annular tears at L2-3 and L3-4, also small posterior annular tear L4-5. There is mild nonspecific edema of the posterior paraspinous soft tissues. Focus of round T2 and T1 hyperintense signal in the region of the right kidney posteriorly is believed to be artifactual. L2-L3: There is negligible disc osteophyte complex and bulge. Spinal canal is adequate. There is very mild narrowing of the inferior left neural foramen distally, right neural foramen overall adequate. L3-L4: There is mild buckling of the ligamentum flavum. Spinal canal is adequate. There is very mild neural foramina compromise bilaterally. L4-L5: There is mild facet degenerative change on the right, fluid in the right facet articulation. There is minimal buckling of the ligamentum flavum. Neural foramina are minimally narrowed greater on the right. Spinal canal is adequate. L5-S1: Spinal canal and neural foramina are adequate. Impression: 1. There is no significant lumbar spinal stenosis. There is mild neural foramina compromise as stated. There are multilevel annular tears as stated. Electronically signed by: Torsten Patterson MD (08/09/2016 3:14 PM)
--- NOTE | 2016-08-09 16:04 | RAD ---
CT scan of the abdomen with contrast 08/09/2016 Clinical history: Hepatitis C with weight loss. Technique: After the intravenous administration of 75 cc of Omnipaque 300 only, contiguous, 3 mm axial sections were obtained through the abdomen. One or more of the following individualized dose reduction techniques were utilized for this study: 1. Automated exposure control. 2. Adjustment of the mA and/or kV according to patient size. 3. Use of iterative reconstruction technique. Findings: Comparison study is dated 01/31/2016. Images through the lung bases demonstrate dependent subsegmental atelectasis involving both lower lobes. The liver is normal in size measuring 15.5 cm in length. The liver parenchyma has a decreased attenuation consistent with fatty infiltration. No focal abnormality of the liver is seen. The spleen, adrenal glands and kidneys are within normal limits. Mild prominence of the main pancreatic duct is noted. No focal abnormality of the pancreas is seen. A NG tube is seen coiled throughout the stomach. The distal end of the tube extends to the gastric fundus. Moderate atherosclerotic plaque formation is seen involving the abdominal aorta and its branches. The abdominal aorta tapers normally. Contrast is seen within the dependent portions of the gallbladder. No free fluid is seen. There is no evidence of bowel obstruction. Impression: 1. Mild fatty infiltration of the liver. No focal abnormality of the liver is seen. 2. No acute abnormality is seen.
[2016-08-09] MEDS: MULTIVIT INFUSN,ADULT 4,VIT K 10 ML, FOLIC ACID 1 MG, THIAMINE 100 MG in IV NORMAL SALI... IV SCH (17:46)
--- NOTE | 2016-08-09 18:49 | PDOC ---
PROGRESS NOTES Assessment Assessment IMPRESSION: Seizure x 2 on 08/08/16, alcohol related. Metabolic encephalopathy. Toxic encephalopathy. Respiratory failure. Alcoholic. Lactic acidosis. HCV Cannabinoids positive. Back pain. RECOMMENDATIONS/PLAN: EEG Alcohol detoxication protocol. Continue Keppra 500 mg bid. Change to PO when can swallow. Lab: see orders. treat medical diseases. Patient education for alcohol abstinence. Discussed with his daughter at bedside. PAST MEDICAL HISTORY: Hep C cirrhosis, alcoholism, chronic nausea, vomiting, abdominal pain and narcotic addiction. FAMILY HISTORY: Unknown. SOCIAL HISTORY: Lives with his . Heavy alcohol 8-10 beers and wine a day x 40 years. Smoking 2 packs a day x 40 years. Marijuana use. ALLERGIES: No known drug allergies. REVIEW OF SYSTEMS: Constitutional: Mild malnutrition. Head: No recent traumatic brain or head injury. Skin: No edema, or rash. Ear: No infection, tinnitus. Eyes: No vision loss, or diplopia. Nose: No bleeding or purulent discharges. Hearing: No hearing decrease. Neck: No injury. Cardiac: No SD Pulmonary: No pneumonia. GI: No GI Ulcer, GI bleeding Urinary/genital: No dysuria, hematuria, incontinence. Endocrine: No cousin face, craniofacial dysmorphism, polydactyly. Skeletomuscular: No muscular atrophy, deformity. Neurological: see HP. Psychiatric:Alcohol, smoking, marijuana. Otherwise, not [id number] review of systems. PHYSICAL EXAMINATION: General appearance in acute distress. HEENT: Normocephalic and nontraumatic. Eyes, nose, ears, and throat are unremarkable. Neck is supple. No lymphadenopathy. No Crepitus. Cardiovascular: S1, S2, regular rate and rhythm. Pulmonary: relative clear to auscultation bilaterally. Abdomen: Bowel sounds are positive. Abdomen is soft, nontender, and nondistended. Extremities: No rash, lesions, or edema. No restriction of range of motion NEUROLOGICAL EXAMINATION: Sleepiness but arousable. Not oriented to time, place and person. PERRL. EOMI. CN: no focal findings. Muscle tone: within normal. Muscle strength: 4+ DTR: 2 Plantar reflex: Neutral response bilaterally Gait: not examined in bed. Sensory exam: no abnormal findings. Not able to access cerebellar signs due to not follow commands. Objective Objective Vital Signs Date Time Temp Pulse Resp B/P (MAP) Pulse Ox O2 Delivery O2 Flow Rate FiO2 6/12/17 17:15 100 Nasal Cannula 3.0 08/09/16 16:00 74 24 98/70 (79) 08/09/16 12:00 98.2 98.2 Intake and Output 08/09/16 07:00 Intake Total 1283.47 ml Output Total 925 ml Balance 358.47 ml Intake Oral 0 ml IV Total 1223.47 ml Blood Product IV Normal Saline Flush 60 ml Output Urine Total 725 ml Gastric Drainage Total 200 ml Vitals Signs Vitals VS - Last 72 Hours, by Label Date Time Temp Pulse Resp B/P (MAP) Pulse Ox O2 Delivery O2 Flow Rate FiO2 08/09/16 17:15 100 Nasal Cannula 3.0 08/09/16 16:56 Ventilator 08/09/16 16:54 100 Ventilator 08/09/16 16:00 Mechanical Ventilator 08/09/16 16:00 74 24 98/70 (79) 100 Ventilator 08/09/16 15:10 100 Ventilator 08/09/16 15:00 82 24 140/88 (105) 100 Ventilator 08/09/16 13:00 70 24 106/67 (80) 100 Ventilator 08/09/16 13:00 100 Ventilator 08/09/16 12:00 Mechanical Ventilator 08/09/16 12:00 98.2 69 24 76/43 (54) 100 Ventilator 98.2 08/09/16 11:19 100 Ventilator 08/09/16 11:00 66 24 100/66 (77) 100 Ventilator 08/09/16 10:00 62 24 122/65 (84) 100 Ventilator 08/09/16 09:20 100 Ventilator 08/09/16 09:00 63 24 101/66 (78) 100 Ventilator 08/09/16 08:00 Mechanical Ventilator 08/09/16 08:00 98.0 60 24 140/78 (98) 100 Ventilator 98.0 08/09/16 07:18 100 Ventilator 08/09/16 07:00 65 24 137/80 (99) 100 Ventilator 08/09/16 06:00 69 24 85/61 (69) 100 Ventilator 08/09/16 05:17 100 Ventilator 08/09/16 05:00 70 24 120/76 (91) 100 Ventilator 08/09/16 04:00 70 24 156/88 (110) 100 Ventilator 08/09/16 04:00 Mechanical Ventilator 08/09/16 03:01 100 Ventilator 08/09/16 03:00 98.3 77 24 137/81 (99) 100 Ventilator 98.3 08/09/16 02:00 68 24 141/87 (105) 100 Ventilator 08/09/16 01:15 100 Ventilator 08/09/16 01:00 77 24 113/75 (88) 100 Ventilator 08/09/16 00:00 79 24 108/74 (85) 100 Ventilator 08/09/16 00:00 Mechanical Ventilator 08/08/16 23:59 100 Ventilator 08/08/16 23:00 98.7 82 24 128/86 (100) 100 Ventilator 98.7 08/08/16 22:00 83 24 131/86 (101) 100 Ventilator 08/08/16 21:58 100 Ventilator 08/08/16 21:51 87 124/85 08/08/16 21:00 87 24 124/85 (98) 99 Ventilator 08/08/16 20:00 86 24 117/80 (92) 99 Ventilator 08/08/16 20:00 Mechanical Ventilator 08/08/16 19:49 100 Ventilator 08/08/16 19:00 98.5 89 24 111/71 (84) 98 Ventilator 98.5 08/08/16 18:00 76 24 95/68 (77) 100 Ventilator 08/08/16 17:47 100 Ventilator 08/08/16 17:00 82 24 113/76 (88) 100 Ventilator 08/08/16 16:28 83 122/87 08/08/16 16:00 Mechanical Ventilator 08/08/16 16:00 99.8 82 24 122/87 (99) 100 Ventilator 99.8 08/08/16 15:33 100 Ventilator 08/08/16 15:00 84 24 135/89 (104) 100 Ventilator 08/08/16 14:00 86 24 146/88 (107) 100 Ventilator 08/08/16 13:50 Ventilator 08/08/16 13:16 Ventilator 08/08/16 13:00 100.0 90 24 121/107 (112) 100 Ventilator 100.0 08/08/16 12:50 Mechanical Ventilator 08/08/16 12:45 100 Ventilator 08/08/16 12:30 98 18 132/76 (94) 100 Ventilator 08/08/16 11:50 117 14 132/89 (103) 08/08/16 11:30 143 174/105 (128) Ventilator 08/08/16 11:18 100 Ventilator 08/08/16 11:17 138/86 (103) 08/08/16 11:16 23 08/08/16 11:04 120 25 156/85 (108) 08/08/16 11:03 23 08/08/16 10:40 177 169/103 08/08/16 10:30 98.8 177 26 170/110 (130) 93 Room Air 98.8 Laboratory Laboratory Laboratory Tests Test 08/08/16 23:20 08/09/16 04:20 08/09/16 07:30 08/09/16 10:25 Troponin I Quantitative 0.031 ng/mL (0.000-0.055) White Blood Count 13.1 x10^3/uL (4.0-11.0) Red Blood Count 4.28 x10^6/uL (4.30-5.70) Hemoglobin 13.9 g/dL (13.0-17.5) Hematocrit 42.1 % (39.0-53.0) Mean Corpuscular Volume 98 fL (79-100) Mean Corpuscular Hemoglobin 33 pg (25-35) Mean Corpuscular Hemoglobin Concent 33 g/dL (31-37) Red Cell Distribution Width 14.1 % (11.5-14.5) Platelet Count 215 x10^3/uL (140-400) Neutrophils (%) (Auto) 80 % (31-73) Lymphocytes (%) (Auto) 10 % (24-48) Monocytes (%) (Auto) 10 % (0-9) Eosinophils (%) (Auto) 0 % (0-3) Basophils (%) (Auto) 0 % (0-3) Neutrophils # (Auto) 10.5 x10^3uL (1.8-7.7) Lymphocytes # (Auto) 1.2 x10^3/uL (1.0-4.8) Monocytes # (Auto) 1.3 x10^3/uL (0.0-1.1) Eosinophils # (Auto) 0.0 x10^3/uL (0.0-0.7) Basophils # (Auto) 0.0 x10^3/uL (0.0-0.2) Sodium Level 140 mmol/L (136-145) Potassium Level 4.0 mmol/L (3.5-5.1) Chloride Level 103 mmol/L (98-107) Carbon Dioxide Level 21 mmol/L (21-32) Anion Gap 16 (6-14) Blood Urea Nitrogen 18 mg/dL (8-26) Creatinine 1.1 mg/dL (0.7-1.3) Estimated GFR (Cockcroft-Gault) 67.4 Glucose Level 115 mg/dL (70-99) Calcium Level 8.9 mg/dL (8.5-10.1) O2 Saturation 98 % (92-99) Arterial Blood pH 7.40 (7.35-7.45) Arterial Blood pCO2 at Patient Temp 34 mmHg (35-46) Arterial Blood pO2 at Patient Temp 134 mmHg (65-108) Arterial Blood HCO3 21 mmol/L (21-28) Arterial Blood Base Excess -3 mmol/L (-3-3) FiO2 40 Ammonia 14 mcmol/L (11-34) Vitamin B12 Level 538 pg/mL (247-911) Serum Folate > 24.00 ng/ml (3.2-20.0) Microbiology 08/08/16 Blood Culture - Preliminary, Resulted NO GROWTH AFTER 1 DAY Medication Medications Current Medications Aspirin (Zunilda Aspirin) 325 mg DAILY PO Last administered on 08/09/16 09:09; Start 08/09/16 at 09:00 Chlorhexidine Gluconate (Peridex) 15 ml BID MM Last administered on 08/09/16 09:08; Start 08/08/16 at 21:00 [facility] 240 mg DAILY PO ; Start 08/09/16 at 09:00 Info (Do NOT chart on this entry -- for MONITORING) 1 each PRN DAILY PRN MC SEE COMMENTS; Start 08/09/16 at 14:00; Stop 08/11/16 at 13:59 Iohexol (Omnipaque 300 Mg/ml) 75 ml 1X ONCE IV ; Start 08/09/16 at 14:00; Stop 08/09/16 at 14:01; Status DC Lactulose 20 gm BID PO ; Start 08/09/16 at 21:00 Lactulose 20 gm Q48H PO Last administered on 08/09/16 09:13; Start 08/09/16 at 09:00; Stop 08/09/16 at 16:32; Status DC Levetiracetam (Keppra) 500 mg Q12HR PO Last administered on 08/09/16t 09:13; Start 08/08/16 at 21:00 Non-Formulary Medication 100 mg DAILY PO ; Start 08/09/16 at 09:00; Status UNV Pantoprazole Sodium (Protonix Vial) 40 mg DAILYAC IVP ; Start 08/09/16 at 10:00 Pantoprazole Sodium (Protonix) 40 mg DAILYAC PO ; Start 08/09/16 at 07:30; Stop 08/09/16 at 09:36; Status DC Comment Review of Relevant I have reviewed the following items chikis (where applicable) has been applied. ADONIS HUITRON MD Aug 09, 2016 18:49
[2016-08-09] MEDS ORDERED: HALOPERIDOL LACTATE 5 MG/ML VIAL. IVP PRN (20:45)
[2016-08-09] MEDS: LACTULOSE 20 GM/30 ML SOLUTION. PO SCH (21:00)
[2016-08-09] MEDS: METOPROLOL TARTRATE 5 MG/5 ML VIAL. IVP PRN (22:28)
[2016-08-10] VITALS (27 sets, daily range): BP systolic 114–186; BP diastolic 68–102
--- NOTE | 2016-08-10 02:07 | CONS ---
DATE OF CONSULTATION: 08/09/2016 ATTENDING PHYSICIAN: Dr. Flor. REASON FOR CONSULTATION: The patient is seen in pulmonary consultation at the request of Dr. Flor for vent management. HISTORY OF PRESENT ILLNESS: The patient is a 65-year-old, who has a history of alcoholism, presented with a seizure. He was intubated. I was asked to see him in consult for vent management. PAST MEDICAL HISTORY: Hepatitis and tobacco use. PAST SURGICAL HISTORY: None. SOCIAL HISTORY: Heavy use of alcohol and marijuana. REVIEW OF SYSTEMS: Unobtainable secondary to the patient's condition. PHYSICAL EXAMINATION: VITAL SIGNS: Since admission to the intensive care unit, the patient has been sedated with Diprivan. He is on assist control ventilation, rate of 24, tidal volume 500. He has had no seizures, hemodynamically he has been stable. HEENT: Eyes, the sclerae were nonicteric. NECK: Jugular venous distention was not elevated. No lymphadenopathy. CHEST: Full expansion. LUNGS: Adequate airway flow, no wheezes. CARDIOVASCULAR: Regular rate and rhythm with S1, S2, no S3. ABDOMEN: Soft, nontender, nondistended. EXTREMITIES: No clubbing, cyanosis, or edema. NEUROLOGIC: The patient was sedated with Diprivan. Chest x-ray was reviewed, no infiltrates. LABORATORY DATA: Reviewed. White count was slightly elevated. Hemoglobin and hematocrit were noted. Arterial blood gas pH of 7.40, PaCO2 of 34, pO2 of 134. Electrolytes were noted. Lactic acid level 1.1. Initial lactic acid level was 17.2. UA was noted. Drug screen was positive for cannabinoid. Alcohol level was 0. IMPRESSION: 1. Acute respiratory failure secondary to seizures. 2. Status epilepticus. 3. Positive drug screen for cannabinoids. 4. Lactic acidosis related to seizures. 5. Hepatitis. PLAN: 1. Considering the fact that the patient has not had any seizures while being sedated, we will hold the sedation, if he is awake, alert, following commands and there is no evidence of recurrent seizures, we will proceed with extubation. 2. Follow Neurology input. 3. The patient is scheduled for brain MRI. CT head revealed no acute findings. CT chest for pulmonary embolism revealed a 7 mm cavitary lesion in the left lower lobe compatible with . I do appreciate the privilege in sharing in the patient's care. The above was discussed with the . RANCHO WOODY MD DR: JONO/carlos JOB#: [id number] / [id number]
[2016-08-10] MEDS: METOPROLOL TARTRATE 5 MG/5 ML VIAL. IVP PRN (02:49)
--- NOTE | 2016-08-10 07:22 | EKG ---
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
[2016-08-10] MEDS: IPRATROPIUM BROMIDE 0.5 MG/2.5 ML NEBU. NEB SCH ×4 (07:48→19:04)
[2016-08-10] MEDS ORDERED: dilTIAZem IV PUSH 25 MG/5 ML VIAL IVP ONE (08:15)
[2016-08-10] MEDS: PANTOPRAZOLE IV PUSH 40 MG VIAL. IVP SCH (08:26)
[2016-08-10] MEDS: CHLORHEXIDINE 0.12% 15 ML MOUTHWASH. MM SCH (08:29)
[2016-08-10 08:59] LABS: CALCIUM 8.8 mg/dL (8.5-10.1); CREATININE 0.8 mg/dL (0.7-1.3); GFR 97.3; MAGNESIUM 1.9 mg/dL (1.8-2.4); POTASSIUM 3.9 mmol/L (3.5-5.1)
--- NOTE | 2016-08-10 09:04 | PDOC ---
PROGRESS NOTES Chief Complaint Chief Complaint cc: seizure like activity A/P Acute hypoxic respiratory failure: Extubated, Hepatic encephalopathy: improving. EEG pending. Possible alcoholwithdraawl seizures: on withdrawal protocol, Marya, neurology following. fall precautions MRI negative for acute process. Weight loss, loss of appetite, CT abdomen pelvis negative. Chronic alcoholism: Paroxysmal, Afib: on PO Cardizem, Echocardiogram On Suboxone, resume once pt is off from sedation, don't recommend at this time as pt is on PRN ativan. Prognosis guarded. History of Present Illness History of Present Illness no acute events. rico RN at yet bedside. Vitals Vitals Vital Signs Date Time Temp Pulse Resp B/P (MAP) Pulse Ox O2 Delivery O2 Flow Rate FiO2 08/10/16 08:22 154 164/87 08/10/16 08:00 99.4 27 99 Nasal Cannula 3.0 99.4 Physical Exam General: No acute distress Heart: Normal S1, Normal S2, No murmurs Lungs: Clear Abdomen: Normal bowel sounds Extremities: No edema, Normal pulses Skin: No rashes Labs LABS Laboratory Tests Test 08/09/16 10:25 08/10/16 08:35 Ammonia 14 mcmol/L (11-34) Vitamin B12 Level 538 pg/mL (247-911) Serum Folate > 24.00 ng/ml (3.2-20.0) Sodium Level 141 mmol/L (136-145) Potassium Level 3.9 mmol/L (3.5-5.1) Chloride Level 105 mmol/L (98-107) Carbon Dioxide Level 23 mmol/L (21-32) Anion Gap 13 (6-14) Blood Urea Nitrogen 20 mg/dL (8-26) Creatinine 0.8 mg/dL (0.7-1.3) Estimated GFR (Cockcroft-Gault) 97.3 Glucose Level 138 mg/dL (70-99) Calcium Level 8.8 mg/dL (8.5-10.1) Magnesium Level 1.9 mg/dL (1.8-2.4) Assessment and Plan Assessmemt and Plan Problems Medical Problems: (1) Alcohol withdrawal Status: Acute (2) Hepatic encephalopathy Status: Acute (3) Lactic acid acidosis Status: Acute (4) Respiratory failure Status: Acute Problems: Comment Review of Relevant I have reviewed the following items chikis (where applicable) has been applied. Labs Laboratory Tests Test 08/08/16 10:35 08/08/16 10:37 08/08/16 11:10 08/08/16 11:13 White Blood Count 16.7 x10^3/uL (4.0-11.0) Red Blood Count 4.54 x10^6/uL (4.30-5.70) Hemoglobin 15.0 g/dL (13.0-17.5) Hematocrit 44.0 % (39.0-53.0) Mean Corpuscular Volume 97 fL (79-100) Mean Corpuscular Hemoglobin 33 pg (25-35) Mean Corpuscular Hemoglobin Concent 34 g/dL (31-37) Red Cell Distribution Width 14.1 % (11.5-14.5) Platelet Count 312 x10^3/uL (140-400) Neutrophils (%) (Auto) 72 % (31-73) Lymphocytes (%) (Auto) 23 % (24-48) Monocytes (%) (Auto) 4 % (0-9) Eosinophils (%) (Auto) 1 % (0-3) Basophils (%) (Auto) 0 % (0-3) Neutrophils # (Auto) 12.0 x10^3uL (1.8-7.7) Lymphocytes # (Auto) 3.8 x10^3/uL (1.0-4.8) Monocytes # (Auto) 0.7 x10^3/uL (0.0-1.1) Eosinophils # (Auto) 0.2 x10^3/uL (0.0-0.7) Basophils # (Auto) 0.1 x10^3/uL (0.0-0.2) Prothrombin Time 14.6 SEC (11.7-14.0) Prothromb Time International Ratio 1.2 (0.8-1.1) Activated Partial Thromboplast Time 30 SEC (24-38) Sodium Level 140 mmol/L (136-145) Potassium Level 4.0 mmol/L (3.5-5.1) Chloride Level 102 mmol/L (98-107) Carbon Dioxide Level 17 mmol/L (21-32) Anion Gap 21 (6-14) Blood Urea Nitrogen 15 mg/dL (8-26) Creatinine 1.1 mg/dL (0.7-1.3) Estimated GFR (Cockcroft-Gault) 67.4 BUN/Creatinine Ratio 14 (6-20) Glucose Level 166 mg/dL (70-99) Calcium Level 9.6 mg/dL (8.5-10.1) Magnesium Level 2.1 mg/dL (1.8-2.4) Total Bilirubin 0.9 mg/dL (0.2-1.0) Aspartate Amino Transf (AST/SGOT) 48 U/L (15-37) Alanine Aminotransferase (ALT/SGPT) 38 U/L (16-63) Alkaline Phosphatase 87 U/L (46-116) Creatine Kinase 89 U/L (39-308) Troponin I Quantitative < 0.017 ng/mL (0.000-0.055) [id number]-Type Natriuretic Peptide 1595 pg/mL (0-124) Total Protein 8.2 g/dL (6.4-8.2) Albumin 4.0 g/dL (3.4-5.0) Albumin/Globulin Ratio 1.0 (1.0-1.7) Lipase 213 U/L (73-393) Ethyl Alcohol Level < 10 mg/dL (0-10) Urine Collection Type Unknown Urine Color Yellow Urine Clarity Clear Urine pH 6.0 Urine Specific [place] 1.020 Urine Protein 30 mg/dL (NEG-TRACE) Urine Glucose (UA) Negative mg/dL (NEG) Urine Ketones (Stick) Trace mg/dL (NEG) Urine Blood Small (NEG) Urine Nitrite Negative (NEG) Urine Bilirubin Negative (NEG) Urine Urobilinogen Dipstick 2.0 mg/dL (0.2 mg/dL) Urine Leukocyte Esterase Negative (NEG) Urine RBC 6-10 /HPF (0-2) Urine WBC 1-4 /HPF (0-4) Urine Squamous Epithelial Cells Few /LPF Urine Bacteria Few /HPF (0-FEW) Urine Hyaline Casts Many /HPF Urine Mucus Marked /LPF Urine Sperm Present /HPF Urine Opiates Screen Neg (NEG) Urine Methadone Screen Neg (NEG) Urine Barbiturates Neg (NEG) Urine Phencyclidine Screen Neg (NEG) Urine Amphetamine/Methamphetamine Neg (NEG) Urine Benzodiazepines Screen Neg (NEG) Urine Cocaine Screen Neg (NEG) Urine Cannabinoids Screen Pos (NEG) Urine Ethyl Alcohol Neg (NEG) Lactic Acid Level 17.2 mmol/L (0.4-2.0) Ammonia 254 mcmol/L (11-34) Test 08/08/16 12:30 08/08/16 17:00 08/08/16 18:00 08/08/16 23:20 O2 Saturation 100 % (92-99) Arterial Blood pH 7.30 (7.35-7.45) Arterial Blood pCO2 at Patient Temp 37 mmHg (35-46) Arterial Blood pO2 at Patient Temp > 503 mmHg (65-108) Arterial Blood HCO3 18 mmol/L (21-28) Arterial Blood Base Excess -8 mmol/L (-3-3) Oxyhemoglobin 98.6 % Methemoglobin 0.5 % (0.0-1.9) Carbon Monoxide, Quantitative 0.5 % (0.0-1.9) FiO2 100 Lactic Acid Level 1.1 mmol/L (0.4-2.0) Troponin I Quantitative 0.034 ng/mL (0.000-0.055) 0.031 ng/mL (0.000-0.055) Nasal Screen MRSA (PCR) Negative (Negative) Test 08/09/16 04:20 08/09/16 07:30 08/09/16 10:25 08/10/16 08:35 White Blood Count 13.1 x10^3/uL (4.0-11.0) Red Blood Count 4.28 x10^6/uL (4.30-5.70) Hemoglobin 13.9 g/dL (13.0-17.5) Hematocrit 42.1 % (39.0-53.0) Mean Corpuscular Volume 98 fL (79-100) Mean Corpuscular Hemoglobin 33 pg (25-35) Mean Corpuscular Hemoglobin Concent 33 g/dL (31-37) Red Cell Distribution Width 14.1 % (11.5-14.5) Platelet Count 215 x10^3/uL (140-400) Neutrophils (%) (Auto) 80 % (31-73) Lymphocytes (%) (Auto) 10 % (24-48) Monocytes (%) (Auto) 10 % (0-9) Eosinophils (%) (Auto) 0 % (0-3) Basophils (%) (Auto) 0 % (0-3) Neutrophils # (Auto) 10.5 x10^3uL (1.8-7.7) Lymphocytes # (Auto) 1.2 x10^3/uL (1.0-4.8) Monocytes # (Auto) 1.3 x10^3/uL (0.0-1.1) Eosinophils # (Auto) 0.0 x10^3/uL (0.0-0.7) Basophils # (Auto) 0.0 x10^3/uL (0.0-0.2) Sodium Level 140 mmol/L (136-145) 141 mmol/L (136-145) Potassium Level 4.0 mmol/L (3.5-5.1) 3.9 mmol/L (3.5-5.1) Chloride Level 103 mmol/L (98-107) 105 mmol/L (98-107) Carbon Dioxide Level 21 mmol/L (21-32) 23 mmol/L (21-32) Anion Gap 16 (6-14) 13 (6-14) Blood Urea Nitrogen 18 mg/dL (8-26) 20 mg/dL (8-26) Creatinine 1.1 mg/dL (0.7-1.3) 0.8 mg/dL (0.7-1.3) Estimated GFR (Cockcroft-Gault) 67.4 97.3 Glucose Level 115 mg/dL (70-99) 138 mg/dL (70-99) Calcium Level 8.9 mg/dL (8.5-10.1) 8.8 mg/dL (8.5-10.1) O2 Saturation 98 % (92-99) Arterial Blood pH 7.40 (7.35-7.45) Arterial Blood pCO2 at Patient Temp 34 mmHg (35-46) Arterial Blood pO2 at Patient Temp 134 mmHg (65-108) Arterial Blood HCO3 21 mmol/L (21-28) Arterial Blood Base Excess -3 mmol/L (-3-3) FiO2 40 Ammonia 14 mcmol/L (11-34) Vitamin B12 Level 538 pg/mL (247-911) Serum Folate > 24.00 ng/ml (3.2-20.0) Magnesium Level 1.9 mg/dL (1.8-2.4) Laboratory Tests Test 08/09/16 10:25 08/10/16 08:35 Ammonia 14 mcmol/L (11-34) Vitamin B12 Level 538 pg/mL (247-911) Serum Folate > 24.00 ng/ml (3.2-20.0) Sodium Level 141 mmol/L (136-145) Potassium Level 3.9 mmol/L (3.5-5.1) Chloride Level 105 mmol/L (98-107) Carbon Dioxide Level 23 mmol/L (21-32) Anion Gap 13 (6-14) Blood Urea Nitrogen 20 mg/dL (8-26) Creatinine 0.8 mg/dL (0.7-1.3) Estimated GFR (Cockcroft-Gault) 97.3 Glucose Level 138 mg/dL (70-99) Calcium Level 8.8 mg/dL (8.5-10.1) Magnesium Level 1.9 mg/dL (1.8-2.4) Microbiology 08/08/16 Blood Culture - Preliminary, Resulted NO GROWTH AFTER 1 DAY Medications Current Medications Diltiazem HCl (Cardizem) 25 mg STK-MED ONCE .ROUTE ; Start 08/08/16 at 10:37; Stop 08/08/16 at 10:38; Status DC Diltiazem HCl 125 mg/Dextrose 125 ml @ 0 mls/hr CONT PRN IV SEE I/O RECORD; Start 08/08/16 at 11:00 Diltiazem HCl (Cardizem) 20 mg 1X ONCE IVP Last administered on 08/08/16t 10: 40; Start 08/08/16 at 11:00; Stop 08/08/16 at 11:01; Status DC Lorazepam (Ativan) 2 mg STK-MED ONCE .ROUTE ; Start 08/08/16 at 10:55; Stop 01/14 at 10:56; Status DC Iohexol (Omnipaque 350 Mg/ml) 90 ml 1X ONCE IV Last administered on 08/08/16 11:15; Start 08/08/16 at 11:15; Stop 08/08/16 at 11:16; Status DC Propofol 20 ml @ 0 mls/hr 1X ONCE IV Last administered on 08/08/16 11:20; Start 08/08/16 at 11:15; Stop 08/08/16 at 11:16; Status DC Info (Do NOT chart on this entry -- for MONITORING) 1 each PRN DAILY PRN MC SEE COMMENTS; Start 08/08/16 at 11:15; Stop 08/10/16 at 11:14 Fentanyl Citrate (Fentanyl 2ml Vial) 100 mcg 1X ONCE IV Last administered on 11:03; Start 08/08/16 at 11:15; Stop 08/08/16 at 11:16; Status DC Fentanyl Citrate (Fentanyl 2ml Vial) 100 mcg 1X ONCE IV Last administered on 11:16; Start 08/08/16 at 11:15; Stop 08/08/16 at 11:16; Status DC Propofol 50 ml @ As Directed STK-MED ONCE IV ; Start 08/08/16 at 11:17; Stop 01/14 at 11:18; Status DC Ondansetron HCl (Zofran) 4 mg PRN Q8HRS PRN IV NAUSEA/VOMITING; Start 08/08/16 at 11:30; Stop 08/09/16 at 11:29; Status DC Fentanyl Citrate (Fentanyl 2ml Vial) 50 mcg PRN Q2HR PRN IV PAIN Last administered on 08/08/16 13:16; Start 08/08/16 at 11:30; Stop 08/09/16 at 11:29 ; Status DC Levetiracetam 1000 mg/Sodium Chloride 110 ml @ 440 mls/hr 1X ONCE IV Last administered on 08/08/16 11:39; Start 08/08/16 at 11:45; Stop 08/08/16 at 11:59 ; Status DC Fentanyl Citrate (Fentanyl 2ml Vial) 100 mcg 1X ONCE IV ; Start 08/08/16 at 11: 45; Stop 08/08/16 at 11:46; Status DC Propofol 50 ml @ As Directed STK-MED ONCE IV ; Start 08/08/16 at 12:09; Stop 01/14 at 12:10; Status DC Lorazepam (Ativan) 2 mg 1X ONCE IV ; Start 08/08/16 at 13:00; Stop 08/08/16 at 13:01; Status DC Succinylcholine Chloride (Anectine) 100 mg 1X ONCE IV ; Start 08/08/16 at 13:00 ; Stop 08/08/16 at 13:01; Status DC Etomidate (Amidate) 20 mg 1X ONCE IV ; Start 08/08/16 at 13:00; Stop 08/08/16 at 13:01; Status DC Propofol 100 ml @ 0 mls/hr CONT PRN IV PER PROTOCOL Last administered on 09:08; Start 08/08/16 at 13:45 Fentanyl Citrate (Fentanyl 2ml Vial) 50 mcg PRN Q1HR PRN IV COMM; Start at 13:45 Chlorhexidine Gluconate (Peridex) 15 ml BID MM Last administered on 08/09/16 09:08; Start 08/08/16 at 21:00; Stop 08/10/16 at 08:29; Status DC Ipratropium [place] (Atrovent) 0.5 mg RTQID NEB Last administered on 08/10/16 07:48; Start 08/08/16 at 16:00 Metoprolol Tartrate (Lopressor) 12.5 mg BID PO Last administered on 08/08/16 21:51; Start 08/08/16 at 14:30 Lorazepam (Ativan) 1 mg PRN Q4HRS PRN IV ANXIETY / AGITATION; Start 08/08/16 at 14:45 Levetiracetam (Keppra) 500 mg Q12HR PO Last administered on 08/09/16 09:13; Start 08/08/16 at 21:00 Multivitamins 10 ml/Folic Acid 1 mg/Thiamine HCl 100 mg/Sodium Chloride 1,011.2 ml @ 100 mls/ hr Q24H IV Last administered on 08/09/16 17:46; Start 08/08/16 at 16:00 Lorazepam (Ativan) 2 mg PRN Q4HRS PRN IV ANXIETY / AGITATION Last administered on 08/09/16 20:20; Start 08/08/16 at 15:15 Aspirin (Zunilda Aspirin) 325 mg DAILY PO Last administered on 08/09/16 09:09; Start 08/09/16 at 09:00 Diltiazem HCl (Cardizem 24hr ) 240 mg DAILY PO ; Start 08/09/16 at 09:00 Lactulose 20 gm Q48H PO Last administered on 08/09/16 09:13; Start 08/09/16 at 09:00; Stop 08/09/16 at 16:32; Status DC Pantoprazole Sodium (Protonix) 40 mg DAILYAC PO ; Start 08/09/16 at 07:30; Stop 08/09/16 at 09:36; Status DC Non-Formulary Medication 100 mg DAILY PO ; Start 08/09/16 at 09:00; Status UNV Pantoprazole Sodium (Protonix Vial) 40 mg DAILYAC IVP Last administered on 08/10 08:26; Start 08/09/16 at 10:00 Iohexol (Omnipaque 300 Mg/ml) 75 ml 1X ONCE IV ; Start 08/09/16 at 14:00; Stop 08/09/16 at 14:01; Status DC Info (Do NOT chart on this entry -- for MONITORING) 1 each PRN DAILY PRN MC SEE COMMENTS; Start 08/09/16 at 14:00; Stop 08/11/16 at 13:59 Lactulose 20 gm BID PO ; Start 08/09/16 at 21:00 Lorazepam (Ativan) 2 mg PRN Q1HR PRN IV For CIWA 8-14 Last administered on 08/10 02:49; Start 08/09/16 at 20:45 Lorazepam (Ativan) 4 mg PRN Q1HR PRN IV For CIWA 15 or greater Last administered on 08/10/16 06:55; Start 08/09/16 at 20:45 Haloperidol Lactate (Haldol) 5 mg PRN Q4HRS PRN IVP Hallucinatns,Confusn, Delirium; Start 08/09/16 at 20:45 Metoprolol Tartrate (Lopressor) 5 mg PRN Q4HRS PRN IVP ELEVATED BP, SEE COMMENTS Last administered on 08/10/16 02:49; Start 08/09/16 at 22:15 Diltiazem HCl (Cardizem) 5 mg 1X ONCE IVP Last administered on 08/10/16 08:22 ; Start 08/10/16 at 08:15; Stop 08/10/16 at 08:16; Status DC Active Scripts Active Lactulose 20 Gm/30 Ml Solution 20 Gm PO QODAY Ativan (Lorazepam) 0.5 Mg Tablet 0.5 Mg PO BID Diltiazem 24HR Cd (Diltiazem Hcl) 240 Mg Cap.er.24h 240 Mg PO DAILY Vitamin B-1 (Thiamine Hcl) 100 Mg Tablet 100 Mg PO DAILY [place] 5-325 Tablet (Acetaminophen/Hydrocodone Bitart) 1 Each Tablet 1 Tab PO PRN Q6HRS PRN Reported Omeprazole 20 Mg Capsule.dr 20 Mg PO DAILY Zofran Odt (Ondansetron) 8 Mg Tab.rapdis 1 Tab PO PRN Q8HRS PRN [place] 4.2-0.7 mg Film (Buprenorphine HCl/Naloxone HCl) 1 Each Film 1 Each BC DAILY Vitals/I & O Vital Sign - Last 24 Hours 08/09/16 08/09/16 08/09/16 08/09/16 09:20 10:00 11:00 11:19 Pulse 62 66 Resp 24 24 B/P (MAP) 122/65 (84) 100/66 (77) Pulse Ox 100 100 100 100 O2 Delivery Ventilator Ventilator Ventilator Ventilator 08/09/16 08/09/16 08/09/16 08/09/16 12:00 12:00 13:00 13:00 Temp 98.2 98.2 Pulse 69 70 Resp 24 24 B/P (MAP) 76/43 (54) 106/67 (80) Pulse Ox 100 100 100 O2 Delivery Ventilator Mechanical Ventilator Ventilator Ventilator 08/09/16 08/09/16 08/09/16 08/09/16 15:00 15:10 16:00 16:00 Pulse 82 74 Resp 24 24 B/P (MAP) 140/88 (105) 98/70 (79) Pulse Ox 100 100 100 O2 Delivery Ventilator Ventilator Ventilator Mechanical Ventilator 08/09/16 08/09/16 08/09/16 08/09/16 16:54 16:56 17:00 17:15 Temp 98.7 98.7 Pulse 58 Resp 16 B/P (MAP) 117/43 (67) Pulse Ox 100 98 100 O2 Delivery Ventilator Ventilator Nasal Cannula Nasal Cannula O2 Flow Rate 3.0 3.0 08/09/16 08/09/16 08/09/16 08/09/16 18:00 19:00 20:00 20:00 Temp 99.2 99.2 Pulse 62 59 82 Resp 21 24 B/P (MAP) 114/56 (75) 139/68 (91) 127/71 (89) Pulse Ox 99 98 100 O2 Delivery Nasal Cannula Nasal Cannula Nasal Cannula Nasal Cannula O2 Flow Rate 3.0 3.0 3.0 3.0 08/09/16 08/09/16 08/09/1612/17 20:15 21:00 22:00 22:28 Pulse 90 96 89 Resp 28 30 B/P (MAP) 172/95 (120) 181/103 (129) 172/96 Pulse Ox 100 98 99 O2 Delivery Nasal Cannula Nasal Cannula Nasal Cannula O2 Flow Rate 2.0 3.0 3.0 08/09/16 08/09/16 08/10/16 08/10/16 23:00 23:59 00:00 01:00 Temp 99.0 99.0 Pulse 72 77 72 Resp 21 22 21 B/P (MAP) 163/94 (117) 186/102 (130) 163/94 (117) Pulse Ox 100 100 100 O2 Delivery Nasal Cannula Nasal Cannula Nasal Cannula Nasal Cannula O2 Flow Rate 3.0 3.0 3.0 3.0 08/10/16 08/10/16 08/10/16 08/10/16 02:00 02:49 03:00 04:00 Temp 99.1 99.1 Pulse 76 81 74 72 Resp 23 25 24 B/P (MAP) 155/86 (109) 177/93 170/93 (118) 166/91 (116) Pulse Ox 100 100 100 O2 Delivery Nasal Cannula Nasal Cannula Nasal Cannula O2 Flow Rate 3.0 3.0 3.0 08/10/16 08/10/16 08/10/16 08/10/16 04:00 05:00 06:00 07:00 Pulse 75 90 136 Resp 23 25 24 B/P (MAP) 155/87 (109) 173/91 (118) 174/98 (123) Pulse Ox 100 100 99 O2 Delivery Nasal Cannula Nasal Cannula Nasal Cannula Nasal Cannula O2 Flow Rate 3.0 3.0 3.0 3.0 08/10/16 08/10/16 08/10/16 07:49 08:00 08:22 Temp 99.4 99.4 Pulse 121 154 Resp 27 B/P (MAP) 164/87 (112) 164/87 Pulse Ox 100 99 O2 Delivery Nasal Cannula Nasal Cannula O2 Flow Rate 2.0 3.0 Intake and Output 08/09/16 08/09/16 08/10/16 15:00 23:00 07:00 Intake Total 40 ml 976 ml Output Total 280 ml 235 ml 660 ml Balance -240 ml -235 ml 316 ml JOAN GARDINER MD Aug 10, 2016 09:04
--- NOTE | 2016-08-10 09:37 | PDOC ---
Objective: Objective: Per RN: Extubated, has opened eyes a few times, also receiving Ativan. A Fib RVR, rates into 160s this morning. Smear of stool. Family concerned w/ weight loss. OG removed yesterday, ?replace Vital Signs: Vital Signs Date Time Temp Pulse Resp B/P (MAP) Pulse Ox O2 Delivery O2 Flow Rate FiO2 08/10/16 09:00 141 28 164/95 (118) 97 Nasal Cannula 3.0 08/10/16 08:00 99.4 99.4 Labs: Laboratory Tests Test 08/09/16 10:25 08/10/16 08:35 Ammonia 14 mcmol/L Vitamin B12 Level 538 pg/mL Serum Folate > 24.00 ng/ml Sodium Level 141 mmol/L Potassium Level 3.9 mmol/L Chloride Level 105 mmol/L Carbon Dioxide Level 23 mmol/L Anion Gap 13 Blood Urea Nitrogen 20 mg/dL Creatinine 0.8 mg/dL Estimated GFR (Cockcroft-Gault) 97.3 Glucose Level 138 mg/dL Calcium Level 8.8 mg/dL Magnesium Level 1.9 mg/dL Imaging: KUB 08/10/16 PENDING PE: GEN: NAD LUNGS: clear anteriorly HEART: tachy, irregular ABD: BS+, soft NEURO/PSYCH: asleep A/P: Seizure -extubated last night A Fib RVR -per cardiology H/o alcoholism, addictions, n/v, weight loss -CT w/ fatty liver Hyperammonemia - resolved -- Continue same per GI. CHEN LAURENT Aug 10, 2016 09:37
[2016-08-10] MEDS ORDERED: METOPROLOL TARTRATE 5 MG/5 ML VIAL. IVP PRN (09:45)
--- NOTE | 2016-08-10 09:51 | PDOC ---
PULMONARY PROGRESS NOTES Subjective extubated 08/09 sleepy but arousable Vitals Vital Signs Date Time Temp Pulse Resp B/P (MAP) Pulse Ox O2 Delivery O2 Flow Rate FiO2 08/10/16 09:00 141 28 164/95 (118) 97 Nasal Cannula 3.0 08/10/16 08:00 99.4 99.4 General: Lethargic Lungs: Clear Cardiovascular: S1 Abdomen: Soft Extremities: No Edema Skin: Warm Labs Laboratory Tests Test 08/08/16 10:35 08/08/16 10:37 08/08/16 11:10 08/08/16 11:13 White Blood Count 16.7 x10^3/uL (4.0-11.0) Red Blood Count 4.54 x10^6/uL (4.30-5.70) Hemoglobin 15.0 g/dL (13.0-17.5) Hematocrit 44.0 % (39.0-53.0) Mean Corpuscular Volume 97 fL (79-100) Mean Corpuscular Hemoglobin 33 pg (25-35) Mean Corpuscular Hemoglobin Concent 34 g/dL (31-37) Red Cell Distribution Width 14.1 % (11.5-14.5) Platelet Count 312 x10^3/uL (140-400) Neutrophils (%) (Auto) 72 % (31-73) Lymphocytes (%) (Auto) 23 % (24-48) Monocytes (%) (Auto) 4 % (0-9) Eosinophils (%) (Auto) 1 % (0-3) Basophils (%) (Auto) 0 % (0-3) Neutrophils # (Auto) 12.0 x10^3uL (1.8-7.7) Lymphocytes # (Auto) 3.8 x10^3/uL (1.0-4.8) Monocytes # (Auto) 0.7 x10^3/uL (0.0-1.1) Eosinophils # (Auto) 0.2 x10^3/uL (0.0-0.7) Basophils # (Auto) 0.1 x10^3/uL (0.0-0.2) Prothrombin Time 14.6 SEC (11.7-14.0) Prothromb Time International Ratio 1.2 (0.8-1.1) Activated Partial Thromboplast Time 30 SEC (24-38) Sodium Level 140 mmol/L (136-145) Potassium Level 4.0 mmol/L (3.5-5.1) Chloride Level 102 mmol/L (98-107) Carbon Dioxide Level 17 mmol/L (21-32) Anion Gap 21 (6-14) Blood Urea Nitrogen 15 mg/dL (8-26) Creatinine 1.1 mg/dL (0.7-1.3) Estimated GFR (Cockcroft-Gault) 67.4 BUN/Creatinine Ratio 14 (6-20) Glucose Level 166 mg/dL (70-99) Calcium Level 9.6 mg/dL (8.5-10.1) Magnesium Level 2.1 mg/dL (1.8-2.4) Total Bilirubin 0.9 mg/dL (0.2-1.0) Aspartate Amino Transf (AST/SGOT) 48 U/L (15-37) Alanine Aminotransferase (ALT/SGPT) 38 U/L (16-63) Alkaline Phosphatase 87 U/L (46-116) Creatine Kinase 89 U/L (39-308) Troponin I Quantitative < 0.017 ng/mL (0.000-0.055) [id number]-Type Natriuretic Peptide 1595 pg/mL (0-124) Total Protein 8.2 g/dL (6.4-8.2) Albumin 4.0 g/dL (3.4-5.0) Albumin/Globulin Ratio 1.0 (1.0-1.7) Lipase 213 U/L (73-393) Ethyl Alcohol Level < 10 mg/dL (0-10) Urine Collection Type Unknown Urine Color Yellow Urine Clarity Clear Urine pH 6.0 Urine Specific [place] 1.020 Urine Protein 30 mg/dL (NEG-TRACE) Urine Glucose (UA) Negative mg/dL (NEG) Urine Ketones (Stick) Trace mg/dL (NEG) Urine Blood Small (NEG) Urine Nitrite Negative (NEG) Urine Bilirubin Negative (NEG) Urine Urobilinogen Dipstick 2.0 mg/dL (0.2 mg/dL) Urine Leukocyte Esterase Negative (NEG) Urine RBC 6-10 /HPF (0-2) Urine WBC 1-4 /HPF (0-4) Urine Squamous Epithelial Cells Few /LPF Urine Bacteria Few /HPF (0-FEW) Urine Hyaline Casts Many /HPF Urine Mucus Marked /LPF Urine Sperm Present /HPF Urine Opiates Screen Neg (NEG) Urine Methadone Screen Neg (NEG) Urine Barbiturates Neg (NEG) Urine Phencyclidine Screen Neg (NEG) Urine Amphetamine/Methamphetamine Neg (NEG) Urine Benzodiazepines Screen Neg (NEG) Urine Cocaine Screen Neg (NEG) Urine Cannabinoids Screen Pos (NEG) Urine Ethyl Alcohol Neg (NEG) Lactic Acid Level 17.2 mmol/L (0.4-2.0) Ammonia 254 mcmol/L (11-34) Test 08/08/16 12:30 08/08/16 17:00 08/08/16 18:00 08/08/16 23:20 O2 Saturation 100 % (92-99) Arterial Blood pH 7.30 (7.35-7.45) Arterial Blood pCO2 at Patient Temp 37 mmHg (35-46) Arterial Blood pO2 at Patient Temp > 503 mmHg (65-108) Arterial Blood HCO3 18 mmol/L (21-28) Arterial Blood Base Excess -8 mmol/L (-3-3) Oxyhemoglobin 98.6 % Methemoglobin 0.5 % (0.0-1.9) Carbon Monoxide, Quantitative 0.5 % (0.0-1.9) FiO2 100 Lactic Acid Level 1.1 mmol/L (0.4-2.0) Troponin I Quantitative 0.034 ng/mL (0.000-0.055) 0.031 ng/mL (0.000-0.055) Nasal Screen MRSA (PCR) Negative (Negative) Test 08/09/16 04:20 08/09/16 07:30 08/09/16 10:25 08/10/16 08:35 White Blood Count 13.1 x10^3/uL (4.0-11.0) Red Blood Count 4.28 x10^6/uL (4.30-5.70) Hemoglobin 13.9 g/dL (13.0-17.5) Hematocrit 42.1 % (39.0-53.0) Mean Corpuscular Volume 98 fL (79-100) Mean Corpuscular Hemoglobin 33 pg (25-35) Mean Corpuscular Hemoglobin Concent 33 g/dL (31-37) Red Cell Distribution Width 14.1 % (11.5-14.5) Platelet Count 215 x10^3/uL (140-400) Neutrophils (%) (Auto) 80 % (31-73) Lymphocytes (%) (Auto) 10 % (24-48) Monocytes (%) (Auto) 10 % (0-9) Eosinophils (%) (Auto) 0 % (0-3) Basophils (%) (Auto) 0 % (0-3) Neutrophils # (Auto) 10.5 x10^3uL (1.8-7.7) Lymphocytes # (Auto) 1.2 x10^3/uL (1.0-4.8) Monocytes # (Auto) 1.3 x10^3/uL (0.0-1.1) Eosinophils # (Auto) 0.0 x10^3/uL (0.0-0.7) Basophils # (Auto) 0.0 x10^3/uL (0.0-0.2) Sodium Level 140 mmol/L (136-145) 141 mmol/L (136-145) Potassium Level 4.0 mmol/L (3.5-5.1) 3.9 mmol/L (3.5-5.1) Chloride Level 103 mmol/L (98-107) 105 mmol/L (98-107) Carbon Dioxide Level 21 mmol/L (21-32) 23 mmol/L (21-32) Anion Gap 16 (6-14) 13 (6-14) Blood Urea Nitrogen 18 mg/dL (8-26) 20 mg/dL (8-26) Creatinine 1.1 mg/dL (0.7-1.3) 0.8 mg/dL (0.7-1.3) Estimated GFR (Cockcroft-Gault) 67.4 97.3 Glucose Level 115 mg/dL (70-99) 138 mg/dL (70-99) Calcium Level 8.9 mg/dL (8.5-10.1) 8.8 mg/dL (8.5-10.1) O2 Saturation 98 % (92-99) Arterial Blood pH 7.40 (7.35-7.45) Arterial Blood pCO2 at Patient Temp 34 mmHg (35-46) Arterial Blood pO2 at Patient Temp 134 mmHg (65-108) Arterial Blood HCO3 21 mmol/L (21-28) Arterial Blood Base Excess -3 mmol/L (-3-3) FiO2 40 Ammonia 14 mcmol/L (11-34) Vitamin B12 Level 538 pg/mL (247-911) Serum Folate > 24.00 ng/ml (3.2-20.0) Magnesium Level 1.9 mg/dL (1.8-2.4) Laboratory Tests Test 08/09/16 10:25 08/10/16 08:35 Ammonia 14 mcmol/L (11-34) Vitamin B12 Level 538 pg/mL (247-911) Serum Folate > 24.00 ng/ml (3.2-20.0) Sodium Level 141 mmol/L (136-145) Potassium Level 3.9 mmol/L (3.5-5.1) Chloride Level 105 mmol/L (98-107) Carbon Dioxide Level 23 mmol/L (21-32) Anion Gap 13 (6-14) Blood Urea Nitrogen 20 mg/dL (8-26) Creatinine 0.8 mg/dL (0.7-1.3) Estimated GFR (Cockcroft-Gault) 97.3 Glucose Level 138 mg/dL (70-99) Calcium Level 8.8 mg/dL (8.5-10.1) Magnesium Level 1.9 mg/dL (1.8-2.4) Medications Active Scripts Medications Dose Route/Sig Max Daily Dose Days Date Category Lactulose 20 Gm/30 Ml Solution 20 Gm PO QODAY 02/03/16 Rx Ativan (Lorazepam) 0.5 Mg Tablet 0.5 Mg PO BID 02/03/16 Rx Diltiazem 24HR Cd (Diltiazem Hcl) 240 Mg Cap.er.24h 240 Mg PO DAILY 02/03/16 Rx Vitamin B-1 (Thiamine Hcl) 100 Mg Tablet 100 Mg PO DAILY 02/03/16 Rx Omeprazole 20 Mg Capsule.dr 20 Mg PO DAILY 01/31/16 Reported Zofran Odt (Ondansetron) 8 Mg Tab.rapdis 1 Tab PO PRN Q8HRS PRN 01/31/16 Reported [place] 4.2-0.7 mg Film (Buprenorphine HCl/Naloxone HCl) 1 Each Film 1 Each BC DAILY 01/31/16 Reported Inez 5-325 Tablet (Acetaminophen/Hydrocodone Bitart) 1 Each Tablet 1 Tab PO PRN Q6HRS PRN 12/01/15 Rx Impression . 1. Acute respiratory failure secondary to seizures. extubated 08/09 2. Status epilepticus. 3. Positive drug screen for cannabinoids. 4. Lactic acidosis related to seizures. 5. Hepatitis. 6. encephalopathy Plan . 1. Nasal canula 2. Follow Neurology input. 3. CT chest for pulmonary embolism revealed a 7 mm bullae in LLL 4. EEG D/W YOVANY MTZ MD Aug 10, 2016 09:51
--- NOTE | 2016-08-10 09:59 | PDOC ---
CARDIO Progress Notes Date and Time Date of Service 08/10/2016 Time of Evaluation 0916 Subjective Subjective: Other (no response to verbal or tactile stimuli) Vitals Vitals Vital Signs Date Time Temp Pulse Resp B/P (MAP) Pulse Ox O2 Delivery O2 Flow Rate FiO2 08/10/16 09:00 141 28 164/95 (118) 97 Nasal Cannula 3.0 08/10/16 08:00 99.4 99.4 Weight Weight [ ] Input and Output Intake and Output Intake and Output 08/10/16 07:00 Intake Total 1016 ml Output Total 1175 ml Balance -159 ml IV Total 976 ml Other 40 ml Output Urine Total 1175 ml Laboratory Labs Laboratory Tests Test 08/09/16 10:25 08/10/16 08:35 Ammonia 14 mcmol/L (11-34) Vitamin B12 Level 538 pg/mL (247-911) Serum Folate > 24.00 ng/ml (3.2-20.0) Sodium Level 141 mmol/L (136-145) Potassium Level 3.9 mmol/L (3.5-5.1) Chloride Level 105 mmol/L (98-107) Carbon Dioxide Level 23 mmol/L (21-32) Anion Gap 13 (6-14) Blood Urea Nitrogen 20 mg/dL (8-26) Creatinine 0.8 mg/dL (0.7-1.3) Estimated GFR (Cockcroft-Gault) 97.3 Glucose Level 138 mg/dL (70-99) Calcium Level 8.8 mg/dL (8.5-10.1) Magnesium Level 1.9 mg/dL (1.8-2.4) Microbiology Micro Microbiology 08/08/16 Blood Culture - Preliminary, Resulted NO GROWTH AFTER 1 DAY Physical Exam HEENT: Neck Supple W Full Motion Chest: Symmetric LUNGS: Other (coarse with rhonchii anteriorly) Heart: irregularly irregular, other (tele - atrial fib RVR) Abdomen: Soft N/T Extremities: No Edema Neurology: non-verbal Assessment Assessment 1. atrial fib with RVR 2nd episode since 01/2016 back into afib RVR earlier today and started on dilt gtt; increase to 20 mg / hr resume IV metoprolol Q6H if remains tachy - will consider digoxin correct Mg level rectal ASA - ? capacity for full OAC 2. acute respiratory failure extubated yesterday per PULM 3. seizure - ? EEG in progress per neuro ? abrupt cessation of ETOH - family unaware 4. hepatitis C/ETOH abuse keep in ICU today - manage dilt gtt and rate control likely may transfer tomorrow EVELINE MARCUS MATE [facility] Aug 10, 2016 09:59
[2016-08-10] MEDS ORDERED: MAGNESIUM SULFATE 2GM 50 ML IV ONE (10:00)
--- NOTE | 2016-08-10 10:17 | RAD ---
AP abdomen radiograph 08/10/2016 Clinical history: NG tube placement. An AP portable supine digital radiograph of the abdomen was obtained. Comparison study is dated 04/29/2006. A NG tube has been placed. The tip of this tube extends to overlie the antrum of the stomach. Mild air distention of both small and large bowel loops is seen. The abdominal bowel gas pattern is nonspecific. The lung bases are clear. Degenerative changes are seen involving the lumbar spine. Impression: The tip of the NG tube overlies the antrum of the stomach.
[2016-08-10] MEDS: ASPIRIN 300 MG SUPP.RECT PR SCH (10:56)
[2016-08-10] MEDS: THIAMINE 100 MG TABLET. PO SCH (10:56)
[2016-08-10] MEDS: LACTULOSE 20 GM/30 ML SOLUTION. PO SCH ×2 (10:56→20:24)
[2016-08-10] MEDS: levETIRAcetam 500 MG TABLET PO SCH ×2 (10:56→21:05)
[2016-08-10] MEDS: METOPROLOL TARTRATE 5 MG/5 ML VIAL. IVP SCH ×4 (11:10→23:57)
[2016-08-10] MEDS ORDERED: ENOXAPARIN 30 MG/0.3 ML SYRINGE. SQ SCH (15:00)
[2016-08-10] MEDS: ENOXAPARIN 40 MG/0.4 ML SYRINGE. SQ SCH (15:51)
[2016-08-10] MEDS: MULTIVIT INFUSN,ADULT 4,VIT K 10 ML, FOLIC ACID 1 MG, THIAMINE 100 MG in IV NORMAL SALI... IV SCH (15:52)
--- NOTE | 2016-08-10 18:38 | PDOC ---
PROGRESS NOTES Assessment Assessment Seizure x 2 on 08/08/16, alcohol related. Metabolic encephalopathy. Toxic encephalopathy. Respiratory failure. Alcoholic. Lactic acidosis. HCV Cannabinoids positive. Back pain. RECOMMENDATIONS/PLAN: Alcohol detoxication protocol. Continue Keppra 500 mg bid. Change to PO when can swallow. Brain MRI w/wo contrast plus seizure protocol. Treat medical diseases. Patient education for alcohol abstinence. Discussed with his daughter at bedside. EEG on 08/10/16 showed diffuse encephalopathy. PAST MEDICAL HISTORY: Hep C cirrhosis, alcoholism, chronic nausea, vomiting, abdominal pain and narcotic addiction. FAMILY HISTORY: Unknown. SOCIAL HISTORY: Lives with his . Heavy alcohol 8-10 beers and wine a day x 40 years. Smoking 2 packs a day x 40 years. Marijuana use. ALLERGIES: No known drug allergies. REVIEW OF SYSTEMS: Constitutional: Mild malnutrition. Head: No recent traumatic brain or head injury. Skin: No edema, or rash. Ear: No infection, tinnitus. Eyes: No vision loss, or diplopia. Nose: No bleeding or purulent discharges. Hearing: No hearing decrease. Neck: No injury. Cardiac: No [place] Pulmonary: No pneumonia. GI: No GI Ulcer, GI bleeding Urinary/genital: No dysuria, hematuria, incontinence. Endocrine: No cousin face, craniofacial dysmorphism, polydactyly. Skeletomuscular: No muscular atrophy, deformity. Neurological: see HP. Psychiatric:Alcohol, smoking, marijuana. Otherwise, not [id number] review of systems. PHYSICAL EXAMINATION: General appearance in acute distress. HEENT: Normocephalic and nontraumatic. Eyes, nose, ears, and throat are unremarkable. Neck is supple. No lymphadenopathy. No Crepitus. Cardiovascular: S1, S2, regular rate and rhythm. Pulmonary: relative clear to auscultation bilaterally. Abdomen: Bowel sounds are positive. Abdomen is soft, nontender, and nondistended. Extremities: No rash, lesions, or edema. No restriction of range of motion NEUROLOGICAL EXAMINATION: Sleepiness but arousable. Not oriented to time, place and person. PERRL. EOMI. CN: no focal findings. Muscle tone: within normal. Muscle strength: 4+ DTR: 2 Plantar reflex: Neutral response bilaterally Gait: not examined in bed. Sensory exam: no abnormal findings. Not able to access cerebellar signs due to not follow commands. Objective Objective Vital Signs Date Time Temp Pulse Resp B/P (MAP) Pulse Ox O2 Delivery O2 Flow Rate FiO2 08/10/16 18:00 97 24 126/70 (88) 95 Nasal Cannula 3.0 08/10/16 16:00 98.6 98.6 Intake and Output 08/10/16 07:00 Intake Total 1016 ml Output Total 1175 ml Balance -159 ml IV Total 976 ml Other 40 ml Output Urine Total 1175 ml Vitals Signs Vitals VS - Last 72 Hours, by Label Date Time Temp Pulse Resp B/P (MAP) Pulse Ox O2 Delivery O2 Flow Rate FiO2 08/10/16 18:00 97 24 126/70 (88) 95 Nasal Cannula 3.0 08/10/16 17:00 91 22 164/87 (112) 96 Nasal Cannula 3.0 08/10/16 16:00 98.6 72 30 142/83 (102) 96 Nasal Cannula 3.0 98.6 08/10/16 16:00 Nasal Cannula 3.0 08/10/16 15:51 125 148/78 08/10/16 15:39 Nasal Cannula 2.0 08/10/16 15:00 98 25 134/76 (95) 96 Nasal Cannula 3.0 08/10/16 14:00 98 25 139/82 (101) 96 Nasal Cannula 3.0 08/10/16 13:00 98.5 93 115/68 (84) 96 Nasal Cannula 3.0 98.5 08/10/16 12:00 80 24 116/77 (90) 98 Nasal Cannula 3.0 08/10/16 12:00 Nasal Cannula 2.0 08/10/16 11:35 Nasal Cannula 2.0 08/10/16 11:30 110 136/74 (94) 08/10/16 11:10 132 134/90 08/10/16 11:00 106 24 134/90 (105) 96 Nasal Cannula 3.0 08/10/16 10:30 110 30 147/87 (107) 97 Nasal Cannula 3.0 08/10/16 10:00 108 22 135/86 (102) 97 Nasal Cannula 3.0 08/10/16 09:30 116 147/86 (106) 08/10/16 09:00 141 28 164/95 (118) 97 Nasal Cannula 3.0 08/10/16 08:22 154 164/87 08/10/16 08:00 Nasal Cannula 3.0 08/10/16 08:00 99.4 121 27 164/87 (112) 99 Nasal Cannula 3.0 99.4 08/10/16 07:49 100 Nasal Cannula 2.0 08/10/16 07:00 136 24 174/98 (123) 99 Nasal Cannula 3.0 08/10/16 06:00 90 25 173/91 (118) 100 Nasal Cannula 3.0 08/10/16 05:00 75 23 155/87 (109) 100 Nasal Cannula 3.0 08/10/16 04:00 Nasal Cannula 3.0 08/10/16 04:00 99.1 72 24 166/91 (116) 100 Nasal Cannula 3.0 99.1 08/10/16 03:00 74 25 170/93 (118) 100 Nasal Cannula 3.0 08/10/16 02:49 81 177/93 08/10/16 02:00 76 23 155/86 (109) 100 Nasal Cannula 3.0 08/10/16 01:00 72 21 163/94 (117) 100 Nasal Cannula 3.0 08/10/16 00:00 99.0 77 22 186/102 (130) 100 Nasal Cannula 3.0 99.0 08/09/16 23:59 Nasal Cannula 3.0 08/09/16 23:00 72 21 163/94 (117) 100 Nasal Cannula 3.0 08/09/16 22:28 89 172/96 08/09/16 22:00 96 30 181/103 (129) 99 Nasal Cannula 3.0 08/09/16 21:00 90 28 172/95 (120) 98 Nasal Cannula 3.0 08/09/16 20:15 100 Nasal Cannula 2.0 08/09/16 20:00 Nasal Cannula 3.0 08/09/16 20:00 99.2 82 127/71 (89) 100 Nasal Cannula 3.0 99.2 08/09/16 19:00 59 24 139/68 (91) 98 Nasal Cannula 3.0 08/09/16 18:00 62 21 114/56 (75) 99 Nasal Cannula 3.0 08/09/16 17:15 100 Nasal Cannula 3.0 08/09/16 17:00 98.7 58 16 117/43 (67) 98 Nasal Cannula 3.0 98.7 08/09/16 16:56 Ventilator 08/09/16 16:54 100 Ventilator 08/09/16 16:00 Mechanical Ventilator 08/09/16 16:00 74 24 98/70 (79) 100 Ventilator 08/09/16 15:10 100 Ventilator 08/09/16 15:00 82 24 140/88 (105) 100 Ventilator 08/09/16 13:00 70 24 106/67 (80) 100 Ventilator 08/09/16 13:00 100 Ventilator 08/09/16 12:00 Mechanical Ventilator 08/09/16 12:00 98.2 69 24 76/43 (54) 100 Ventilator 98.2 08/09/16 11:19 100 Ventilator 08/09/16 11:00 66 24 100/66 (77) 100 Ventilator 08/09/16 10:00 62 24 122/65 (84) 100 Ventilator 08/09/16 09:20 100 Ventilator 08/09/16 09:00 63 24 101/66 (78) 100 Ventilator 08/09/16 08:00 Mechanical Ventilator 08/09/16 08:00 98.0 60 24 140/78 (98) 100 Ventilator 98.0 08/09/16 07:18 100 Ventilator 08/09/16 07:00 65 24 137/80 (99) 100 Ventilator Laboratory Laboratory Laboratory Tests Test 08/10/16 08:35 Sodium Level 141 mmol/L (136-145) Potassium Level 3.9 mmol/L (3.5-5.1) Chloride Level 105 mmol/L (98-107) Carbon Dioxide Level 23 mmol/L (21-32) Anion Gap 13 (6-14) Blood Urea Nitrogen 20 mg/dL (8-26) Creatinine 0.8 mg/dL (0.7-1.3) Estimated GFR (Cockcroft-Gault) 97.3 Glucose Level 138 mg/dL (70-99) Calcium Level 8.8 mg/dL (8.5-10.1) Magnesium Level 1.9 mg/dL (1.8-2.4) Microbiology 08/08/16 Blood Culture - Preliminary, Resulted NO GROWTH AFTER 2 DAYS Medication Medications Current Medications Aspirin (Aspirin) 300 mg DAILY RI Last administered on 08/10/16 10:56; Start 08/10/16 at 09:45 Diltiazem HCl (Cardizem) 5 mg 1X ONCE IVP Last administered on 08/10/16 08:22 ; Start 08/10/16 at 08:15; Stop 08/10/16 at 08:16; Status DC Enoxaparin Sodium (Lovenox 30mg Syringe) 30 mg Q24H SQ ; Start 08/10/16 at 15:00 ; Stop 08/10/16 at 15:00; Status DC Enoxaparin Sodium (Lovenox 40mg Syringe) 40 mg Q24H SQ Last administered on 15:51; Start 08/10/16 at 15:00 Haloperidol Lactate (Haldol) 5 mg PRN Q4HRS PRN IVP Hallucinatns,Confusn, Delirium Last administered on 08/10/16 12:29; Start 08/09/16 at 20:45 Lactulose 20 gm BID PO Last administered on 08/10/16 10:56; Start 08/09/16 at 21:00 Lorazepam (Ativan) 2 mg PRN Q1HR PRN IV For CIWA 8-14 Last administered on 08/10 02:49; Start 08/09/16 at 20:45 Lorazepam (Ativan) 4 mg PRN Q1HR PRN IV For CIWA 15 or greater Last administered on 08/10/16 06:55; Start 08/09/16 at 20:45 Magnesium Sulfate/ Dextrose 50 ml @ 25 mls/hr 1X ONCE IV Last administered on 08/10/16 10:56; Start 08/10/16 at 10:00; Stop 08/10/16 at 11:59; Status DC Metoprolol Tartrate (Lopressor) 5 mg PRN Q4HRS PRN IVP ELEVATED BP, SEE COMMENTS Last administered on 08/10/16 02:49; Start 08/09/16 at 22:15; Stop at 09:48; Status DC Metoprolol Tartrate (Lopressor) 5 mg Q6HRS IVP Last administered on 08/10/16 15:51; Start 08/10/16 at 10:15 Metoprolol Tartrate (Lopressor) 5 mg Q6HRS PRN IVP ELEVATED BP, SEE COMMENTS; Start 08/10/16 at 09:45; Stop 08/10/16 at 10:05; Status DC Comment Review of Relevant I have reviewed the following items chikis (where applicable) has been applied. ADONIS HUITRON MD Aug 10, 2016 18:38
--- NOTE | 2016-08-10 23:15 | EEG ---
DATE OF SERVICE: 08/10/2016 EEG NUMBER: [id number]. OBJECTIVE: This is a 65-year-old male patient with history of alcohol use/abuse. He had 2 seizures on 08/08/2016. EEG was requested to evaluate seizure activity. METHODS: Twenty electrodes were applied according to the international 10-20 electrode placement system. EKG monitoring, hyperventilation, intermittent photic stimulation, monopolar and bipolar montages are routinely utilized. The record was obtained on a digital system with video monitoring. MEDICATION: Ativan. FINDINGS: 1. Background: The patient was recorded in the brief awake, drowsy, and sleep states. The overall background amplitude is variable. A posterior dominant rhythm of 8-10 Hz is occasionally observed with superimposed slowing in theta and delta frequencies throughout the entire recording. 2. Abnormalities: No specific epileptiform discharge or electrographic seizure is seen. Diffuse slowing in the theta and delta frequencies is throughout the entire recording. Fast activity in beta frequency also noted. 3. Activation: Hyperventilation was not performed because the patient was unable to follow the commands. Intermittent photic stimulation was performed with photic driving. No specific epileptiform discharge or electrographic seizure induced by intermittent photic stimulation. IMPRESSION: This EEG is an abnormal study for the awake, drowsy, and sleep states. Diffuse slowing in the theta and delta frequencies is throughout the entire recording. Fast activity in beta frequency also noted, which may be medication effects. No focal, lateralizing, specific epileptiform discharge or electrographic seizure is seen. This pattern of EEG may suggest diffuse encephalopathy. ADONIS HUITRON MD DR: ADILSON/carlos JOB#: [id number] / [id number] EVELINE
[2016-08-11] VITALS (24 sets, daily range): BP systolic 108–168; BP diastolic 62–98
[2016-08-11] MEDS ORDERED: SUCCINYLCHOLINE 200 MG/10 ML VIAL. ONE ×2 (01:30)
[2016-08-11] MEDS: ACETAMINOPHEN 650 MG/20.3 ML SOLUTION. PEG PRN ×2 (03:57→23:53)
[2016-08-11 06:06] LABS: CHOLESTEROL/HDL RATIO 2.5
[2016-08-11 06:24] LABS: HEMATOCRIT 41.5 % (39.0-53.0); HEMOGLOBIN 13.9 g/dL (13.0-17.5); RED BLOOD COUNT 4.25 x10^6/uL (4.30-5.70); RED CELL DISTRIBUTION WIDTH 13.8 % (11.5-14.5); WHITE BLOOD COUNT 12.1 x10^3/uL (4.0-11.0)
[2016-08-11] MEDS: METOPROLOL TARTRATE 5 MG/5 ML VIAL. IVP SCH ×4 (06:34→23:53)
[2016-08-11 06:36] LABS: CALCIUM 8.2 mg/dL (8.5-10.1); CREATININE 0.8 mg/dL (0.7-1.3); GFR 97.3; POTASSIUM 3.1 mmol/L (3.5-5.1)
[2016-08-11] MEDS: IPRATROPIUM BROMIDE 0.5 MG/2.5 ML NEBU. NEB SCH ×4 (07:56→19:29)
[2016-08-11] MEDS ORDERED: HALOPERIDOL LACTATE 5 MG/ML VIAL. IVP PRN (10:15)
--- NOTE | 2016-08-11 10:15 | PDOC ---
PROGRESS NOTES Chief Complaint Chief Complaint cc: seizure like activity A/P Acute hypoxic respiratory failure: Extubated 08/09 Hepatic encephalopathy, persistent Possible alcohol withdrawal seizures: Chronic alcoholism: Paroxysmal, Afib: on cardizem gtt Prognosis guarded. Neurogenic dysphagia Elevetaed Ammonia HYpokalemia Hx hep C History of Present Illness History of Present Illness Extubated 2 days ago but encephalopathy persists concerned HEavy education and counselling done about likely what's causing the persistent encephalopathy SOunds gurggly Remains eyes closed Does not follow commands [place] in with good UO Ammonia now normal post lactulose claims, the mech vent, high lactulose and confusion are all new On cardizem gtt for a fib RVR PLAN: MAintain cardizem gtt - ok to CVC on fixed gtt NPO COnt TF via foreign AQUATICS DIRECTOR once more awake PT/OT once more Awake SCds DVT prophy (platelets ok) WOF: etoh withdrawal - 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\ time in room dw 30 mins Vitals Vitals Vital Signs Date Time Temp Pulse Resp B/P (MAP) Pulse Ox O2 Delivery O2 Flow Rate FiO2 08/11/16 08:00 Nasal Cannula 4.0 08/11/16 07:00 93 32 142/80 (100) 95 08/11/16 04:00 101.2 101.2 Physical Exam General: No acute distress Heart: Normal S1, Normal S2, No murmurs Lungs: Clear Abdomen: Normal bowel sounds Extremities: No edema, Normal pulses Skin: No rashes Labs LABS Laboratory Tests Test 08/11/16 04:15 White Blood Count 12.1 x10^3/uL (4.0-11.0) Red Blood Count 4.25 x10^6/uL (4.30-5.70) Hemoglobin 13.9 g/dL (13.0-17.5) Hematocrit 41.5 % (39.0-53.0) Mean Corpuscular Volume 98 fL (79-100) Mean Corpuscular Hemoglobin 33 pg (25-35) Mean Corpuscular Hemoglobin Concent 34 g/dL (31-37) Red Cell Distribution Width 13.8 % (11.5-14.5) Platelet Count 161 x10^3/uL (140-400) Sodium Level 140 mmol/L (136-145) Potassium Level 3.1 mmol/L (3.5-5.1) Chloride Level 105 mmol/L (98-107) Carbon Dioxide Level 24 mmol/L (21-32) Anion Gap 11 (6-14) Blood Urea Nitrogen 17 mg/dL (8-26) Creatinine 0.8 mg/dL (0.7-1.3) Estimated GFR (Cockcroft-Gault) 97.3 Glucose Level 202 mg/dL (70-99) Calcium Level 8.2 mg/dL (8.5-10.1) Triglycerides Level 63 mg/dL (0-150) Cholesterol Level 145 mg/dL (0-200) LDL Cholesterol, Calculated 73 mg/dL (0-100) VLDL Cholesterol, Calculated 13 mg/dL (0-40) Non-HDL Cholesterol Calculated 86 mg/dL (0-129) HDL Cholesterol 59 mg/dL (40-60) Cholesterol/HDL Ratio 2.5 Review of Systems Review of Systems confused Assessment and Plan Assessmemt and Plan Problems Medical Problems: (1) Alcohol withdrawal Status: Acute (2) Hepatic encephalopathy Status: Acute (3) Lactic acid acidosis Status: Acute (4) Respiratory failure Status: Acute Problems: Comment Review of Relevant I have reviewed the following items chikis (where applicable) has been applied. Labs Laboratory Tests Test 08/09/16 10:25 08/10/16 08:35 08/11/16 04:15 Ammonia 14 mcmol/L (11-34) Vitamin B12 Level 538 pg/mL (247-911) Serum Folate > 24.00 ng/ml (3.2-20.0) Sodium Level 141 mmol/L (136-145) 140 mmol/L (136-145) Potassium Level 3.9 mmol/L (3.5-5.1) 3.1 mmol/L (3.5-5.1) Chloride Level 105 mmol/L (98-107) 105 mmol/L (98-107) Carbon Dioxide Level 23 mmol/L (21-32) 24 mmol/L (21-32) Anion Gap 13 (6-14) 11 (6-14) Blood Urea Nitrogen 20 mg/dL (8-26) 17 mg/dL (8-26) Creatinine 0.8 mg/dL (0.7-1.3) 0.8 mg/dL (0.7-1.3) Estimated GFR (Cockcroft-Gault) 97.3 97.3 Glucose Level 138 mg/dL (70-99) 202 mg/dL (70-99) Calcium Level 8.8 mg/dL (8.5-10.1) 8.2 mg/dL (8.5-10.1) Magnesium Level 1.9 mg/dL (1.8-2.4) Thyroid Stimulating Hormone (TSH) 1.041 uIU/mL (0.358-3.74) White Blood Count 12.1 x10^3/uL (4.0-11.0) Red Blood Count 4.25 x10^6/uL (4.30-5.70) Hemoglobin 13.9 g/dL (13.0-17.5) Hematocrit 41.5 % (39.0-53.0) Mean Corpuscular Volume 98 fL (79-100) Mean Corpuscular Hemoglobin 33 pg (25-35) Mean Corpuscular Hemoglobin Concent 34 g/dL (31-37) Red Cell Distribution Width 13.8 % (11.5-14.5) Platelet Count 161 x10^3/uL (140-400) Triglycerides Level 63 mg/dL (0-150) Cholesterol Level 145 mg/dL (0-200) LDL Cholesterol, Calculated 73 mg/dL (0-100) VLDL Cholesterol, Calculated 13 mg/dL (0-40) Non-HDL Cholesterol Calculated 86 mg/dL (0-129) HDL Cholesterol 59 mg/dL (40-60) Cholesterol/HDL Ratio 2.5 Laboratory Tests Test 08/11/16 04:15 White Blood Count 12.1 x10^3/uL (4.0-11.0) Red Blood Count 4.25 x10^6/uL (4.30-5.70) Hemoglobin 13.9 g/dL (13.0-17.5) Hematocrit 41.5 % (39.0-53.0) Mean Corpuscular Volume 98 fL (79-100) Mean Corpuscular Hemoglobin 33 pg (25-35) Mean Corpuscular Hemoglobin Concent 34 g/dL (31-37) Red Cell Distribution Width 13.8 % (11.5-14.5) Platelet Count 161 x10^3/uL (140-400) Sodium Level 140 mmol/L (136-145) Potassium Level 3.1 mmol/L (3.5-5.1) Chloride Level 105 mmol/L (98-107) Carbon Dioxide Level 24 mmol/L (21-32) Anion Gap 11 (6-14) Blood Urea Nitrogen 17 mg/dL (8-26) Creatinine 0.8 mg/dL (0.7-1.3) Estimated GFR (Cockcroft-Gault) 97.3 Glucose Level 202 mg/dL (70-99) Calcium Level 8.2 mg/dL (8.5-10.1) Triglycerides Level 63 mg/dL (0-150) Cholesterol Level 145 mg/dL (0-200) LDL Cholesterol, Calculated 73 mg/dL (0-100) VLDL Cholesterol, Calculated 13 mg/dL (0-40) Non-HDL Cholesterol Calculated 86 mg/dL (0-129) HDL Cholesterol 59 mg/dL (40-60) Cholesterol/HDL Ratio 2.5 Microbiology 08/08/16 Blood Culture - Preliminary, Resulted NO GROWTH AFTER 2 DAYS Medications Current Medications Diltiazem HCl (Cardizem) 25 mg STK-MED ONCE .ROUTE ; Start 08/08/16 at 10:37; Stop 08/08/16 at 10:38; Status DC Diltiazem HCl 125 mg/Dextrose 125 ml @ 0 mls/hr CONT PRN IV SEE I/O RECORD Last administered on 08/10/16 23:58; Start 08/08/16 at 11:00 Diltiazem HCl (Cardizem) 20 mg 1X ONCE IVP Last administered on 08/08/16 10: 40; Start 08/08/16 at 11:00; Stop 08/08/16 at 11:01; Status DC Lorazepam (Ativan) 2 mg STK-MED ONCE .ROUTE ; Start 08/08/16 at 10:55; Stop 01/14 at 10:56; Status DC Iohexol (Omnipaque 350 Mg/ml) 90 ml 1X ONCE IV Last administered on 08/08/16 11:15; Start 08/08/16 at 11:15; Stop 08/08/16 at 11:16; Status DC Propofol 20 ml @ 0 mls/hr 1X ONCE IV Last administered on 08/08/16 11:20; Start 08/08/16 at 11:15; Stop 08/08/16 at 11:16; Status DC Info (Do NOT chart on this entry -- for MONITORING) 1 each PRN DAILY PRN MC SEE COMMENTS; Start 08/08/16 at 11:15; Stop 08/10/16 at 09:37; Status DC Fentanyl Citrate (Fentanyl 2ml Vial) 100 mcg 1X ONCE IV Last administered on 11:03; Start 08/08/16 at 11:15; Stop 08/08/16 at 11:16; Status DC Fentanyl Citrate (Fentanyl 2ml Vial) 100 mcg 1X ONCE IV Last administered on 11:16; Start 08/08/16 at 11:15; Stop 08/08/16 at 11:16; Status DC Propofol 50 ml @ As Directed STK-MED ONCE IV ; Start 08/08/16 at 11:17; Stop 01/14 at 11:18; Status DC Ondansetron HCl (Zofran) 4 mg PRN Q8HRS PRN IV NAUSEA/VOMITING; Start 08/08/16 at 11:30; Stop 08/09/16 at 11:29; Status DC Fentanyl Citrate (Fentanyl 2ml Vial) 50 mcg PRN Q2HR PRN IV PAIN Last administered on 08/08/16 13:16; Start 08/08/16 at 11:30; Stop 08/09/16 at 11:29 ; Status DC Levetiracetam 1000 mg/Sodium Chloride 110 ml @ 440 mls/hr 1X ONCE IV Last administered on 08/08/16 11:39; Start 08/08/16 at 11:45; Stop 08/08/16 at 11:59 ; Status DC Fentanyl Citrate (Fentanyl 2ml Vial) 100 mcg 1X ONCE IV ; Start 08/08/16 at 11: 45; Stop 08/08/16 at 11:46; Status DC Propofol 50 ml @ As Directed STK-MED ONCE IV ; Start 08/08/16 at 12:09; Stop 01/14 at 12:10; Status DC Lorazepam (Ativan) 2 mg 1X ONCE IV ; Start 08/08/16 at 13:00; Stop 08/08/16 at 13:01; Status DC Succinylcholine Chloride (Anectine) 100 mg 1X ONCE IV ; Start 08/08/16 at 13:00 ; Stop 08/08/16 at 13:01; Status DC Etomidate (Amidate) 20 mg 1X ONCE IV ; Start 08/08/16 at 13:00; Stop 08/08/16 at 13:01; Status DC Propofol 100 ml @ 0 mls/hr CONT PRN IV PER PROTOCOL Last administered on 09:08; Start 08/08/16 at 13:45 Fentanyl Citrate (Fentanyl 2ml Vial) 50 mcg PRN Q1HR PRN IV COMM; Start at 13:45 Chlorhexidine Gluconate (Peridex) 15 ml BID MM Last administered on 08/09/16 09:08; Start 08/08/16 at 21:00; Stop 08/10/16 at 08:29; Status DC Ipratropium [place] (Atrovent) 0.5 mg RTQID NEB Last administered on 08/11/16 07:56; Start 08/08/16 at 16:00 Metoprolol Tartrate (Lopressor) 12.5 mg BID PO Last administered on 08/08/16 21:51; Start 08/08/16 at 14:30; Stop 08/10/16 at 09:48; Status DC Lorazepam (Ativan) 1 mg PRN Q4HRS PRN IV ANXIETY / AGITATION; Start 08/08/16 at 14:45 Levetiracetam (Keppra) 500 mg Q12HR PO Last administered on 08/10/16 21:05; Start 08/08/16 at 21:00 Multivitamins 10 ml/Folic Acid 1 mg/Thiamine HCl 100 mg/Sodium Chloride 1,011.2 ml @ 100 mls/ hr Q24H IV Last administered on 08/10/16 15:52; Start 08/08/16 at 16:00 Lorazepam (Ativan) 2 mg PRN Q4HRS PRN IV ANXIETY / AGITATION Last administered on 08/10/16 11:11; Start 08/08/16 at 15:15 Aspirin (Zunilda Aspirin) 325 mg DAILY PO Last administered on 08/09/16 09:09; Start 08/09/16 at 09:00; Stop 08/10/16 at 09:48; Status DC Diltiazem HCl (Cardizem 24hr Cd) 240 mg DAILY PO ; Start 08/09/16 at 09:00; Stop 08/10/16 at 09:48; Status DC Lactulose 20 gm Q48H PO Last administered on 08/09/16 09:13; Start 08/09/16 at 09:00; Stop 08/09/16 at 16:32; Status DC Pantoprazole Sodium (Protonix) 40 mg DAILYAC PO ; Start 08/09/16 at 07:30; Stop 08/09/16 at 09:36; Status DC Non-Formulary Medication 100 mg DAILY PO Last administered on 08/10/16 10:56; Start 08/09/16 at 09:00; Status UNV Pantoprazole Sodium (Protonix Vial) 40 mg DAILYAC IVP Last administered on 08/10 08:26; Start 08/09/16 at 10:00 Iohexol (Omnipaque 300 Mg/ml) 75 ml 1X ONCE IV ; Start 08/09/16 at 14:00; Stop 08/09/16 at 14:01; Status DC Info (Do NOT chart on this entry -- for MONITORING) 1 each PRN DAILY PRN MC SEE COMMENTS; Start 08/09/16 at 14:00; Stop 08/11/16 at 13:59 Lactulose 20 gm BID PO Last administered on 08/10/16 20:24; Start 08/09/16 at 21:00 Lorazepam (Ativan) 2 mg PRN Q1HR PRN IV For CIWA 8-14 Last administered on 08/10 02:49; Start 08/09/16 at 20:45 Lorazepam (Ativan) 4 mg PRN Q1HR PRN IV For CIWA 15 or greater Last administered on 08/10/16 06:55; Start 08/09/16 at 20:45 Haloperidol Lactate (Haldol) 5 mg PRN Q4HRS PRN IVP Hallucinatns,Confusn, Delirium Last administered on 08/10/16 12:29; Start 08/09/16 at 20:45 Metoprolol Tartrate (Lopressor) 5 mg PRN Q4HRS PRN IVP ELEVATED BP, SEE COMMENTS Last administered on 08/10/16 02:49; Start 08/09/16 at 22:15; Stop at 09:48; Status DC Diltiazem HCl (Cardizem) 5 mg 1X ONCE IVP Last administered on 08/10/16 08:22 ; Start 08/10/16 at 08:15; Stop 08/10/16 at 08:16; Status DC Metoprolol Tartrate (Lopressor) 5 mg Q6HRS PRN IVP ELEVATED BP, SEE COMMENTS; Start 08/10/16 at 09:45; Stop 08/10/16 at 10:05; Status DC Aspirin (Aspirin) 300 mg DAILY HI Last administered on 08/10/16 10:56; Start 08/10/16 at 09:45 Magnesium Sulfate/ Dextrose 50 ml @ 25 mls/hr 1X ONCE IV Last administered on 08/10/16 10:56; Start 08/10/16 at 10:00; Stop 08/10/16 at 11:59; Status DC Metoprolol Tartrate (Lopressor) 5 mg Q6HRS IVP Last administered on 08/11/16 06:34; Start 08/10/16 at 10:15 Enoxaparin Sodium (Lovenox 30mg Syringe) 30 mg Q24H SQ ; Start 08/10/16 at 15:00 ; Stop 08/10/16 at 15:00; Status DC Enoxaparin Sodium (Lovenox 40mg Syringe) 40 mg Q24H SQ Last administered on 15:51; Start 08/10/16 at 15:00 Acetaminophen (Tylenol) 650 mg PRN Q6HRS PRN PEG MILD PAIN / TEMP Last administered on 08/11/16 03:57; Start 08/10/16 at 23:45 Succinylcholine Chloride (Anectine) 200 mg STK-MED ONCE .ROUTE ; Start 08/11/16 at 01:30; Stop 08/11/16 at 01:31; Status DC Succinylcholine Chloride (Anectine) 200 mg STK-MED ONCE .ROUTE ; Start 08/11/16 at 01:30; Stop 08/11/16 at 08:48; Status DC Active Scripts Active Lactulose 20 Gm/30 Ml Solution 20 Gm PO QODAY Ativan (Lorazepam) 0.5 Mg Tablet 0.5 Mg PO BID Diltiazem 24HR Cd (Diltiazem Hcl) 240 Mg Cap.er.24h 240 Mg PO DAILY Vitamin B-1 (Thiamine Hcl) 100 Mg Tablet 100 Mg PO DAILY [place] 5-325 Tablet (Acetaminophen/Hydrocodone Bitart) 1 Each Tablet 1 Tab PO PRN Q6HRS PRN Reported Omeprazole 20 Mg Capsule.dr 20 Mg PO DAILY Zofran Odt (Ondansetron) 8 Mg Tab.rapdis 1 Tab PO PRN Q8HRS PRN [place] 4.2-0.7 mg Film (Buprenorphine HCl/Naloxone HCl) 1 Each Film 1 Each BC DAILY Vitals/I & O Vital Sign - Last 24 Hours 08/10/16 08/10/16 08/10/16 08/10/16 10:30 11:00 11:10 11:30 Pulse 110 106 132 110 Resp 30 24 B/P (MAP) 147/87 (107) 134/90 (105) 134/90 136/74 (94) Pulse Ox 97 96 O2 Delivery Nasal Cannula Nasal Cannula O2 Flow Rate 3.0 3.0 08/10/16 08/10/16 08/10/16 08/10/16 11:35 12:00 12:00 13:00 Temp 98.5 98.5 Pulse 80 93 Resp 24 B/P (MAP) 116/77 (90) 115/68 (84) Pulse Ox 98 96 O2 Delivery Nasal Cannula Nasal Cannula Nasal Cannula Nasal Cannula O2 Flow Rate 2.0 2.0 3.0 3.0 08/10/16 08/10/16 08/10/16 08/10/16 14:00 15:00 15:39 15:51 Pulse 98 98 125 Resp 25 25 B/P (MAP) 139/82 (101) 134/76 (95) 148/78 Pulse Ox 96 96 O2 Delivery Nasal Cannula Nasal Cannula Nasal Cannula O2 Flow Rate 3.0 3.0 2.0 08/10/16 08/10/16 08/10/16 08/10/16 16:00 16:00 17:00 18:00 Temp 98.6 98.6 Pulse 72 91 97 Resp 30 22 24 B/P (MAP) 142/83 (102) 164/87 (112) 126/70 (88) Pulse Ox 96 96 95 O2 Delivery Nasal Cannula Nasal Cannula Nasal Cannula Nasal Cannula O2 Flow Rate 3.0 3.0 3.0 3.0 08/10/16 08/10/16 08/10/16 08/10/16 19:00 19:04 20:00 20:00 Temp 101.0 101.0 Pulse 100 100 Resp 26 28 B/P (MAP) 119/69 (86) 114/71 (85) Pulse Ox 97 98 97 O2 Delivery Nasal Cannula Nasal Cannula Nasal Cannula Nasal Cannula O2 Flow Rate 3.0 3.0 3.0 3.0 08/10/16 08/10/16 08/10/16 08/10/16 20:24 21:00 22:00 23:00 Pulse 97 88 94 112 Resp 28 30 28 B/P (MAP) 126/70 114/78 (90) 123/81 (95) 162/95 (117) Pulse Ox 96 96 96 O2 Delivery Nasal Cannula Nasal Cannula Nasal Cannula O2 Flow Rate 3.0 3.0 3.0 08/10/16 08/10/16 08/11/16 08/11/16 23:57 23:59 00:00 01:00 Temp 99.0 99.0 Pulse 119 98 104 Resp 32 22 B/P (MAP) 126/70 130/90 (103) 138/86 (103) Pulse Ox 96 96 O2 Delivery Nasal Cannula Nasal Cannula Nasal Cannula O2 Flow Rate 4.0 3.0 3.0 08/11/16 08/11/16 08/11/16 08/11/16 02:00 03:00 04:00 04:00 Temp 101.2 101.2 Pulse 110 118 118 Resp 28 26 39 B/P (MAP) 141/92 (108) 140/88 (105) 153/97 (115) Pulse Ox 95 96 90 O2 Delivery Nasal Cannula Nasal Cannula Nasal Cannula Nasal Cannula O2 Flow Rate 3.0 3.0 4.0 3.0 08/11/16 08/11/16 08/11/16 08/11/16 05:00 06:00 06:34 07:00 Pulse 114 114 118 93 Resp 34 35 32 B/P (MAP) 117/62 (80) 108/73 (85) 140/88 142/80 (100) Pulse Ox 94 95 95 O2 Delivery Nasal Cannula Nasal Cannula Nasal Cannula O2 Flow Rate 3.0 3.0 4.0 08/11/16 08:00 O2 Delivery Nasal Cannula O2 Flow Rate 4.0 Intake and Output 08/10/16 08/10/16 08/11/16 15:00 23:00 07:00 Intake Total 428 ml 1686 ml Output Total 700 ml 250 ml 675 ml Balance -700 ml 178 ml 1011 ml Nutrition Consultation Dietary Evaluation: Recommendations by RD: Increase Calorie Intake Comments: Rec. 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
--- NOTE | 2016-08-11 10:15 | PDOC ---
CARDIO Progress Notes Date and Time Date of Service 08/11/2016 Time of Evaluation 1014 Subjective Subjective: Other (no response to verbal or tactile stimuli; snoring) Vitals Vitals Vital Signs Date Time Temp Pulse Resp B/P (MAP) Pulse Ox O2 Delivery O2 Flow Rate FiO2 08/11/16 08:00 Nasal Cannula 4.0 08/11/16 07:00 93 32 142/80 (100) 95 08/11/16 04:00 101.2 101.2 Weight Weight [ ] Input and Output Intake and Output Intake and Output 08/11/16 07:00 Intake Total 2114 ml Output Total 1625 ml Balance 489 ml IV Total 1299 ml Tube Feeding 495 ml Other 320 ml Output Urine Total 1625 ml Laboratory Labs Laboratory Tests Test 08/11/16 04:15 White Blood Count 12.1 x10^3/uL (4.0-11.0) Red Blood Count 4.25 x10^6/uL (4.30-5.70) Hemoglobin 13.9 g/dL (13.0-17.5) Hematocrit 41.5 % (39.0-53.0) Mean Corpuscular Volume 98 fL (79-100) Mean Corpuscular Hemoglobin 33 pg (25-35) Mean Corpuscular Hemoglobin Concent 34 g/dL (31-37) Red Cell Distribution Width 13.8 % (11.5-14.5) Platelet Count 161 x10^3/uL (140-400) Sodium Level 140 mmol/L (136-145) Potassium Level 3.1 mmol/L (3.5-5.1) Chloride Level 105 mmol/L (98-107) Carbon Dioxide Level 24 mmol/L (21-32) Anion Gap 11 (6-14) Blood Urea Nitrogen 17 mg/dL (8-26) Creatinine 0.8 mg/dL (0.7-1.3) Estimated GFR (Cockcroft-Gault) 97.3 Glucose Level 202 mg/dL (70-99) Calcium Level 8.2 mg/dL (8.5-10.1) Triglycerides Level 63 mg/dL (0-150) Cholesterol Level 145 mg/dL (0-200) LDL Cholesterol, Calculated 73 mg/dL (0-100) VLDL Cholesterol, Calculated 13 mg/dL (0-40) Non-HDL Cholesterol Calculated 86 mg/dL (0-129) HDL Cholesterol 59 mg/dL (40-60) Cholesterol/HDL Ratio 2.5 Microbiology Micro Microbiology 08/08/16 Blood Culture - Preliminary, Resulted NO GROWTH AFTER 2 DAYS Case Discussion Case Discussed with: Family Physical Exam HEENT: Neck Supple W Full Motion Chest: Symmetric LUNGS: Other (coarse with rhonchii anteriorly) Heart: irregularly irregular, other (tele - atrial fib RVR) Abdomen: Soft N/T Extremities: No Edema Neurology: non-verbal Assessment Assessment 1. atrial fib with RVR 2nd episode since 01/2016 dilt gtt at 10 mg/hr + IV metoprolol Q6H OAC with aspirin - not currently a candidate for full OAC dig 500 mcg today to improve rate control supplement K 2. acute respiratory failure remains extubated per PULM 3. seizure - ? remains encephalopapthic EEG prelim report - abnormal per neuro 4. hepatitis C/ETOH abuse NH3 treated with lactulose with improvement May transfer to [facility] EVELINE MARCUS APRN Aug 11, 2016 10:14
--- NOTE | 2016-08-11 10:25 | PDOC ---
PULMONARY PROGRESS NOTES Subjective extubated 08/09 sleepy /LETHARGIC Vitals Vital Signs Date Time Temp Pulse Resp B/P (MAP) Pulse Ox O2 Delivery O2 Flow Rate FiO2 08/11/16 08:00 Nasal Cannula 4.0 08/11/16 07:00 93 32 142/80 (100) 95 08/11/16 04:00 101.2 101.2 General: Alert, Lethargic Lungs: Other (decrease bs) Cardiovascular: S1 Abdomen: Soft Extremities: No Edema Skin: Warm Labs Laboratory Tests Test 08/09/16 10:25 08/10/16 08:35 08/11/16 04:15 Ammonia 14 mcmol/L (11-34) Vitamin B12 Level 538 pg/mL (247-911) Serum Folate > 24.00 ng/ml (3.2-20.0) Sodium Level 141 mmol/L (136-145) 140 mmol/L (136-145) Potassium Level 3.9 mmol/L (3.5-5.1) 3.1 mmol/L (3.5-5.1) Chloride Level 105 mmol/L (98-107) 105 mmol/L (98-107) Carbon Dioxide Level 23 mmol/L (21-32) 24 mmol/L (21-32) Anion Gap 13 (6-14) 11 (6-14) Blood Urea Nitrogen 20 mg/dL (8-26) 17 mg/dL (8-26) Creatinine 0.8 mg/dL (0.7-1.3) 0.8 mg/dL (0.7-1.3) Estimated GFR (Cockcroft-Gault) 97.3 97.3 Glucose Level 138 mg/dL (70-99) 202 mg/dL (70-99) Calcium Level 8.8 mg/dL (8.5-10.1) 8.2 mg/dL (8.5-10.1) Magnesium Level 1.9 mg/dL (1.8-2.4) Thyroid Stimulating Hormone (TSH) 1.041 uIU/mL (0.358-3.74) White Blood Count 12.1 x10^3/uL (4.0-11.0) Red Blood Count 4.25 x10^6/uL (4.30-5.70) Hemoglobin 13.9 g/dL (13.0-17.5) Hematocrit 41.5 % (39.0-53.0) Mean Corpuscular Volume 98 fL (79-100) Mean Corpuscular Hemoglobin 33 pg (25-35) Mean Corpuscular Hemoglobin Concent 34 g/dL (31-37) Red Cell Distribution Width 13.8 % (11.5-14.5) Platelet Count 161 x10^3/uL (140-400) Triglycerides Level 63 mg/dL (0-150) Cholesterol Level 145 mg/dL (0-200) LDL Cholesterol, Calculated 73 mg/dL (0-100) VLDL Cholesterol, Calculated 13 mg/dL (0-40) Non-HDL Cholesterol Calculated 86 mg/dL (0-129) HDL Cholesterol 59 mg/dL (40-60) Cholesterol/HDL Ratio 2.5 Laboratory Tests Test 08/11/16 04:15 White Blood Count 12.1 x10^3/uL (4.0-11.0) Red Blood Count 4.25 x10^6/uL (4.30-5.70) Hemoglobin 13.9 g/dL (13.0-17.5) Hematocrit 41.5 % (39.0-53.0) Mean Corpuscular Volume 98 fL (79-100) Mean Corpuscular Hemoglobin 33 pg (25-35) Mean Corpuscular Hemoglobin Concent 34 g/dL (31-37) Red Cell Distribution Width 13.8 % (11.5-14.5) Platelet Count 161 x10^3/uL (140-400) Sodium Level 140 mmol/L (136-145) Potassium Level 3.1 mmol/L (3.5-5.1) Chloride Level 105 mmol/L (98-107) Carbon Dioxide Level 24 mmol/L (21-32) Anion Gap 11 (6-14) Blood Urea Nitrogen 17 mg/dL (8-26) Creatinine 0.8 mg/dL (0.7-1.3) Estimated GFR (Cockcroft-Gault) 97.3 Glucose Level 202 mg/dL (70-99) Calcium Level 8.2 mg/dL (8.5-10.1) Triglycerides Level 63 mg/dL (0-150) Cholesterol Level 145 mg/dL (0-200) LDL Cholesterol, Calculated 73 mg/dL (0-100) VLDL Cholesterol, Calculated 13 mg/dL (0-40) Non-HDL Cholesterol Calculated 86 mg/dL (0-129) HDL Cholesterol 59 mg/dL (40-60) Cholesterol/HDL Ratio 2.5 Medications Active Scripts Medications Dose Route/Sig Max Daily Dose Days Date Category Lactulose 20 Gm/30 Ml Solution 20 Gm PO QODAY 02/03/16 Rx Ativan (Lorazepam) 0.5 Mg Tablet 0.5 Mg PO BID 02/03/16 Rx Diltiazem 24HR Cd (Diltiazem Hcl) 240 Mg Cap.er.24h 240 Mg PO DAILY 02/03/16 Rx Vitamin B-1 (Thiamine Hcl) 100 Mg Tablet 100 Mg PO DAILY 02/03/16 Rx Omeprazole 20 Mg Capsule.dr 20 Mg PO DAILY 01/31/16 Reported Zofran Odt (Ondansetron) 8 Mg Tab.rapdis 1 Tab PO PRN Q8HRS PRN 01/31/16 Reported [place] 4.2-0.7 mg Film (Buprenorphine HCl/Naloxone HCl) 1 Each Film 1 Each BC DAILY 01/31/16 Reported [place] 5-325 Tablet (Acetaminophen/Hydrocodone Bitart) 1 Each Tablet 1 Tab PO PRN Q6HRS PRN 12/01/15 Rx Impression . 1. Acute respiratory failure secondary to seizures. extubated 08/09 2. Status epilepticus. 3. Positive drug screen for cannabinoids. 4. Lactic acidosis related to seizures. 5. Hepatitis. 6. encephalopathy persistent/ per neurology Plan . 1. Nasal canula 2. Follow Neurology input. 3. CT chest for pulmonary embolism revealed a 7 mm bullae in LLL 4. EEG results pending 5. keep in ICU till mental status improved D/W RN and family YOVANY AMBROSIO MD Aug 11, 2016 10:25
[2016-08-11] MEDS: levETIRAcetam 500 MG TABLET PO SCH ×2 (10:27→21:30)
[2016-08-11] MEDS: ASPIRIN 300 MG SUPP.RECT PR SCH (10:27)
[2016-08-11] MEDS: LACTULOSE 20 GM/30 ML SOLUTION. PO SCH (10:27)
[2016-08-11] MEDS: PANTOPRAZOLE IV PUSH 40 MG VIAL. IVP SCH (10:27)
[2016-08-11] MEDS: THIAMINE 100 MG TABLET. PO SCH (10:27)
[2016-08-11] MEDS ORDERED: POTASSIUM CHLORIDE 20 MEQ/15 ML ORAL LIQUID. PEG ONE ×2 (10:30→15:00)
[2016-08-11] MEDS ORDERED: DIGOXIN IV 500 MCG/2 ML AMPUL. IV ONE (10:30)
--- NOTE | 2016-08-11 12:08 | PDOC ---
Objective: Objective: Seen this morning. Per RN - significant phlegm. Stooling a lot. Not really waking up. Has NG w/ tube feeds. Vital Signs: Vital Signs Date Time Temp Pulse Resp B/P (MAP) Pulse Ox O2 Delivery O2 Flow Rate FiO2 08/11/16 12:00 97 Nasal Cannula 6.0 08/11/16 11:00 98.9 106 23 152/90 (110) 98.9 Labs: Laboratory Tests Test 08/11/16 04:15 White Blood Count 12.1 x10^3/uL Red Blood Count 4.25 x10^6/uL Hemoglobin 13.9 g/dL Hematocrit 41.5 % Mean Corpuscular Volume 98 fL Mean Corpuscular Hemoglobin 33 pg Mean Corpuscular Hemoglobin Concent 34 g/dL Red Cell Distribution Width 13.8 % Platelet Count 161 x10^3/uL Sodium Level 140 mmol/L Potassium Level 3.1 mmol/L Chloride Level 105 mmol/L Carbon Dioxide Level 24 mmol/L Anion Gap 11 Blood Urea Nitrogen 17 mg/dL Creatinine 0.8 mg/dL Estimated GFR (Cockcroft-Gault) 97.3 Glucose Level 202 mg/dL Calcium Level 8.2 mg/dL Magnesium Level 1.9 mg/dL Triglycerides Level 63 mg/dL Cholesterol Level 145 mg/dL LDL Cholesterol, Calculated 73 mg/dL VLDL Cholesterol, Calculated 13 mg/dL Non-HDL Cholesterol Calculated 86 mg/dL HDL Cholesterol 59 mg/dL Cholesterol/HDL Ratio 2.5 Imaging: EEG IMPRESSION: This EEG is an abnormal study for the awake, drowsy, and sleep states. Diffuse slowing in the theta and delta frequencies is throughout the entire recording. Fast activity in beta frequency also noted, which may be medication effect. No focal, lateralizing, specific epileptiform discharge or electrographic seizure is seen. This pattern of EEG may suggest diffuse encephalopathy. PE: GEN: NAD LUNGS: nasal cannula HEART: tachy ABD: soft NEURO/PSYCH: does not awaken A/P: Seizure, encephalopathy -neuro following, EEG abnormal as above Alcoholism, Hep C, n/v, weight loss -CT w/ fatty liver Hyperammonemia - resolved -on lactulose A Fib -per cardiology -- Continue supportive care. Will reduce lactulose to QD since stooling significantly. CHEN LAURENT Aug 11, 2016 12:08
[2016-08-11] MEDS ORDERED: PHENYLEPHRINE INJ 20 MG in IV NORMAL SALINE 250ML 250 ML IV ONE (14:30)
[2016-08-11] MEDS: MULTIVIT INFUSN,ADULT 4,VIT K 10 ML, FOLIC ACID 1 MG, THIAMINE 100 MG in IV NORMAL SALI... IV SCH (14:51)
[2016-08-11] MEDS: ENOXAPARIN 40 MG/0.4 ML SYRINGE. SQ SCH (15:57)
--- NOTE | 2016-08-11 18:29 | PDOC ---
PROGRESS NOTES Assessment Assessment Seizure x 2 on 08/08/16, alcohol related. Metabolic encephalopathy. Toxic encephalopathy. Respiratory failure. Tiny right frontal and parietal junction infract. Alcoholic. Lactic acidosis. HCV Ammonia 254 Cannabinoids positive. Back pain. RECOMMENDATIONS/PLAN: Alcohol detoxication protocol. Continue Keppra 500 mg bid. Continue ASA 300 mg Rectal daily. Treat medical diseases. Discussed with his daughter at bedside on 08/09. EEG on 08/10/16 showed diffuse encephalopathy. Brain MRI: Tiny infract in right frontal and parietal junction. PAST MEDICAL HISTORY: Hep C cirrhosis, alcoholism, chronic nausea, vomiting, abdominal pain and narcotic addiction. FAMILY HISTORY: Unknown. SOCIAL HISTORY: Lives with his . Heavy alcohol 8-10 beers and wine a day x 40 years. Smoking 2 packs a day x 40 years. Marijuana use. ALLERGIES: No known drug allergies. REVIEW OF SYSTEMS: Constitutional: Mild malnutrition. Head: No recent traumatic brain or head injury. Skin: No edema, or rash. Ear: No infection, tinnitus. Eyes: No vision loss, or diplopia. Nose: No bleeding or purulent discharges. Hearing: No hearing decrease. Neck: No injury. Cardiac: No [place] Pulmonary: No pneumonia. GI: No GI Ulcer, GI bleeding Urinary/genital: No dysuria, hematuria, incontinence. Endocrine: No cousin face, craniofacial dysmorphism, polydactyly. Skeletomuscular: No muscular atrophy, deformity. Neurological: see HP. Psychiatric:Alcohol, smoking, marijuana. Otherwise, not [id number] review of systems. PHYSICAL EXAMINATION: General appearance in acute distress. HEENT: Normocephalic and nontraumatic. Eyes, nose, ears, and throat are unremarkable. Neck is supple. No lymphadenopathy. No Crepitus. Cardiovascular: S1, S2, regular rate and rhythm. Pulmonary: relative clear to auscultation bilaterally. Abdomen: Bowel sounds are positive. Abdomen is soft, nontender, and nondistended. Extremities: No rash, lesions, or edema. No restriction of range of motion NEUROLOGICAL EXAMINATION: Lethargic. Not oriented to time, place and person. PERRL. EOMI. CN: no focal findings. Muscle tone: within normal. Muscle strength: moves all extremities to pain stimuli. DTR: 1-2 Plantar reflex: Neutral response bilaterally Gait: unable to walk. Sensory exam: Minimal response to stimuli. Not able to access cerebellar signs due to not follow commands. Objective Objective Vital Signs Date Time Temp Pulse Resp B/P (MAP) Pulse Ox O2 Delivery O2 Flow Rate FiO2 08/11/16 18:23 98.9 86 18 136/92 (107) 96 Nasal Cannula 3.0 98.9 Intake and Output 08/11/16 07:00 Intake Total 2114 ml Output Total 1625 ml Balance 489 ml IV Total 1299 ml Tube Feeding 495 ml Other 320 ml Output Urine Total 1625 ml Vitals Signs Vitals VS - Last 72 Hours, by Label Date Time Temp Pulse Resp B/P (MAP) Pulse Ox O2 Delivery O2 Flow Rate FiO2 08/11/16 18:23 98.9 86 18 136/92 (107) 96 Nasal Cannula 3.0 98.9 08/11/16 18:14 119 159/88 08/11/16 16:05 98.9 110 20 168/95 (119) 96 Nasal Cannula 3.0 98.9 08/11/16 16:04 Nasal Cannula 4.0 08/11/16 15:25 96 Nasal Cannula 6.0 08/11/16 15:00 98.9 103 161/90 (113) 97 Nasal Cannula 3.0 98.9 08/11/16 14:05 98.9 102 25 156/96 (116) 97 Nasal Cannula 4.0 98.9 08/11/16 13:19 98.9 84 18 157/93 (114) 97 Nasal Cannula 4.0 98.9 08/11/16 12:47 112 166/94 08/11/16 12:26 98.9 113 20 162/98 (119) 97 Nasal Cannula 4.0 98.9 08/11/16 12:00 97 Nasal Cannula 6.0 08/11/16 12:00 Nasal Cannula 4.0 08/11/16 11:00 98.9 106 23 152/90 (110) 95 Nasal Cannula 4.0 98.9 08/11/16 11:00 100 28 152/90 (110) 97 Nasal Cannula 4.0 08/11/16 10:30 115 143/88 08/11/16 10:00 108 32 138/95 (109) 95 Nasal Cannula 4.0 08/11/16 09:00 108 36 147/87 (107) 96 Nasal Cannula 4.0 08/11/16 08:00 Nasal Cannula 4.0 08/11/16 08:00 99.1 94 32 120/69 (86) 96 Nasal Cannula 4.0 99.1 08/11/16 07:10 98 Nasal Cannula 6.0 08/11/16 07:00 93 32 142/80 (100) 95 Nasal Cannula 4.0 08/11/16 06:34 118 140/88 08/11/16 06:00 114 35 108/73 (85) 95 Nasal Cannula 3.0 08/11/16 05:00 114 34 117/62 (80) 94 Nasal Cannula 3.0 08/11/16 04:00 101.2 118 39 153/97 (115) 90 Nasal Cannula 3.0 101.2 08/11/16 04:00 Nasal Cannula 4.0 08/11/16 03:00 118 26 140/88 (105) 96 Nasal Cannula 3.0 08/11/16 02:00 110 28 141/92 (108) 95 Nasal Cannula 3.0 08/11/16 01:00 104 22 138/86 (103) 96 Nasal Cannula 3.0 08/11/16 00:00 99.0 98 32 130/90 (103) 96 Nasal Cannula 3.0 99.0 08/10/16 23:59 Nasal Cannula 4.0 08/10/16 23:57 119 126/70 08/10/16 23:00 112 28 162/95 (117) 96 Nasal Cannula 3.0 08/10/16 22:00 94 30 123/81 (95) 96 Nasal Cannula 3.0 08/10/16 21:00 88 28 114/78 (90) 96 Nasal Cannula 3.0 08/10/16 20:24 97 126/70 08/10/16 20:00 101.0 100 28 114/71 (85) 97 Nasal Cannula 3.0 101.0 08/10/16 20:00 Nasal Cannula 3.0 08/10/16 19:04 98 Nasal Cannula 3.0 08/10/16 19:00 100 26 119/69 (86) 97 Nasal Cannula 3.0 08/10/16 18:00 97 24 126/70 (88) 95 Nasal Cannula 3.0 08/10/16 17:00 91 22 164/87 (112) 96 Nasal Cannula 3.0 08/10/16 16:00 98.6 72 30 142/83 (102) 96 Nasal Cannula 3.0 98.6 08/10/16 16:00 Nasal Cannula 3.0 08/10/16 15:51 125 148/78 08/10/16 15:39 Nasal Cannula 2.0 08/10/16 15:00 98 25 134/76 (95) 96 Nasal Cannula 3.0 08/10/16 14:00 98 25 139/82 (101) 96 Nasal Cannula 3.0 08/10/16 13:00 98.5 93 115/68 (84) 96 Nasal Cannula 3.0 98.5 08/10/16 12:00 80 24 116/77 (90) 98 Nasal Cannula 3.0 08/10/16 12:00 Nasal Cannula 2.0 08/10/16 11:35 Nasal Cannula 2.0 08/10/16 11:30 110 136/74 (94) 08/10/16 11:10 132 134/90 08/10/16 11:00 106 24 134/90 (105) 96 Nasal Cannula 3.0 08/10/16 10:30 110 30 147/87 (107) 97 Nasal Cannula 3.0 08/10/16 10:00 108 22 135/86 (102) 97 Nasal Cannula 3.0 08/10/16 09:30 116 147/86 (106) 08/10/16 09:00 141 28 164/95 (118) 97 Nasal Cannula 3.0 08/10/16 08:22 154 164/87 08/10/16 08:00 Nasal Cannula 3.0 08/10/16 08:00 99.4 121 27 164/87 (112) 99 Nasal Cannula 3.0 99.4 08/10/16 07:49 100 Nasal Cannula 2.0 08/10/16 07:00 136 24 174/98 (123) 99 Nasal Cannula 3.0 Laboratory Laboratory Laboratory Tests Test 08/11/16 04:15 White Blood Count 12.1 x10^3/uL (4.0-11.0) Red Blood Count 4.25 x10^6/uL (4.30-5.70) Hemoglobin 13.9 g/dL (13.0-17.5) Hematocrit 41.5 % (39.0-53.0) Mean Corpuscular Volume 98 fL (79-100) Mean Corpuscular Hemoglobin 33 pg (25-35) Mean Corpuscular Hemoglobin Concent 34 g/dL (31-37) Red Cell Distribution Width 13.8 % (11.5-14.5) Platelet Count 161 x10^3/uL (140-400) Sodium Level 140 mmol/L (136-145) Potassium Level 3.1 mmol/L (3.5-5.1) Chloride Level 105 mmol/L (98-107) Carbon Dioxide Level 24 mmol/L (21-32) Anion Gap 11 (6-14) Blood Urea Nitrogen 17 mg/dL (8-26) Creatinine 0.8 mg/dL (0.7-1.3) Estimated GFR (Cockcroft-Gault) 97.3 Glucose Level 202 mg/dL (70-99) Calcium Level 8.2 mg/dL (8.5-10.1) Magnesium Level 1.9 mg/dL (1.8-2.4) Triglycerides Level 63 mg/dL (0-150) Cholesterol Level 145 mg/dL (0-200) LDL Cholesterol, Calculated 73 mg/dL (0-100) VLDL Cholesterol, Calculated 13 mg/dL (0-40) Non-HDL Cholesterol Calculated 86 mg/dL (0-129) HDL Cholesterol 59 mg/dL (40-60) Cholesterol/HDL Ratio 2.5 Microbiology 08/08/16 Blood Culture - Preliminary, Resulted NO GROWTH AFTER 3 DAYS Medication Medications Current Medications Acetaminophen (Tylenol) 650 mg PRN Q6HRS PRN PEG MILD PAIN / TEMP Last administered on 08/11/16 03:57; Start 08/10/16 at 23:45 Digoxin (Lanoxin) 500 mcg 1X ONCE IV Last administered on 08/11/16 10:30; Start 08/11/16 at 10:30; Stop 08/11/16 at 10:31; Status DC Haloperidol Lactate (Haldol) 2.5 mg PRN Q4HRS PRN IVP Hallucinatns,Confusn, Delirium; Start 08/11/16 at 10:15 Lactulose 20 gm QD PO ; Start 08/12/16 at 09:00 Phenylephrine HCl 20 mg/Sodium Chloride 252 ml @ 0 mls/hr 1X ONCE IV ; Start at 14:30; Stop 08/11/16 at 14:31; Status Cancel Potassium Chloride (KCl Oral Soln) 40 meq 1X ONCE PEG Last administered on t 10:30; Start 08/11/16 at 10:30; Stop 08/11/16 at 10:31; Status DC Potassium Chloride (KCl Oral Soln) 40 meq 1X ONCE PEG Last administered on t 16:00; Start 08/11/16 at 15:00; Stop 08/11/16 at 15:01; Status DC Succinylcholine Chloride (Anectine) 200 mg STK-MED ONCE .ROUTE ; Start 08/11/16 at 01:30; Stop 08/11/16 at 01:31; Status DC Succinylcholine Chloride (Anectine) 200 mg STK-MED ONCE .ROUTE ; Start 08/11/16 at 01:30; Stop 08/11/16 at 08:48; Status DC Comment Review of Relevant I have reviewed the following items chikis (where applicable) has been applied. ADONIS HUITRON MD Aug 11, 2016 18:29
[2016-08-12] VITALS (15 sets, daily range): BP systolic 104–138; BP diastolic 68–98
[2016-08-12 04:43] LABS: CALCIUM 8.4 mg/dL (8.5-10.1); CREATININE 0.8 mg/dL (0.7-1.3); GFR 97.3; MAGNESIUM 1.7 mg/dL (1.8-2.4); POTASSIUM 3.5 mmol/L (3.5-5.1)
[2016-08-12] MEDS: ACETAMINOPHEN 650 MG/20.3 ML SOLUTION. PEG PRN ×2 (05:00→12:27)
[2016-08-12] MEDS: METOPROLOL TARTRATE 5 MG/5 ML VIAL. IVP SCH (05:00)
[2016-08-12] MEDS: THIAMINE 100 MG TABLET. PO SCH (08:21)
[2016-08-12] MEDS: PANTOPRAZOLE IV PUSH 40 MG VIAL. IVP SCH (08:21)
[2016-08-12] MEDS: LACTULOSE 20 GM/30 ML SOLUTION. PO SCH (08:21)
[2016-08-12] MEDS: levETIRAcetam 500 MG TABLET PO SCH ×2 (08:21→21:52)
[2016-08-12] MEDS: ASPIRIN 300 MG SUPP.RECT PR SCH (08:21)
[2016-08-12] MEDS: IPRATROPIUM BROMIDE 0.5 MG/2.5 ML NEBU. NEB SCH ×4 (08:44→20:17)
[2016-08-12] MEDS ORDERED: MAGNESIUM SULFATE 2GM 50 ML IV ONE ×2 (09:00→16:00)
--- NOTE | 2016-08-12 09:36 | PDOC ---
PROGRESS NOTES Chief Complaint Chief Complaint cc: seizure like activity A/P Acute hypoxic respiratory failure: Extubated 08/09 Hepatic encephalopathy, persistent Possible alcohol withdrawal seizures: Chronic alcoholism: Paroxysmal, Afib: on cardizem gtt Prognosis guarded. Neurogenic dysphagia Elevetaed Ammonia HYpokalemia Hx hep C History of Present Illness History of Present Illness Extubated 2 days ago but encephalopathy persists concerned HEavy education and counselling done about likely what's causing the persistent encephalopathy SOunds gurggly Remains eyes closed Seen in ICU MOre awake today! 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 Vitals Vital Signs Date Time Temp Pulse Resp B/P (MAP) Pulse Ox O2 Delivery O2 Flow Rate FiO2 08/12/16 09:00 95 20 134/75 (94) 97 Nasal Cannula 3.0 08/12/16 08:00 99.3 99.3 Physical Exam General: No acute distress Heart: Normal S1, Normal S2, No murmurs Lungs: Other (decrease bs) Abdomen: Normal bowel sounds Extremities: No edema, Normal pulses Skin: No rashes Labs LABS Laboratory Tests Test 08/12/16 03:35 Sodium Level 140 mmol/L (136-145) Potassium Level 3.5 mmol/L (3.5-5.1) Chloride Level 106 mmol/L (98-107) Carbon Dioxide Level 24 mmol/L (21-32) Anion Gap 10 (6-14) Blood Urea Nitrogen 16 mg/dL (8-26) Creatinine 0.8 mg/dL (0.7-1.3) Estimated GFR (Cockcroft-Gault) 97.3 Glucose Level 173 mg/dL (70-99) Calcium Level 8.4 mg/dL (8.5-10.1) Magnesium Level 1.7 mg/dL (1.8-2.4) Review of Systems Review of Systems denies pain etc - all 14 pt reviewed Assessment and Plan Assessmemt and Plan Problems Medical Problems: (1) Alcohol withdrawal Status: Acute (2) Hepatic encephalopathy Status: Acute (3) Lactic acid acidosis Status: Acute (4) Respiratory failure Status: Acute Problems: Comment Review of Relevant I have reviewed the following items chikis (where applicable) has been applied. Labs Laboratory Tests Test 08/11/16 04:15 08/12/16 03:35 White Blood Count 12.1 x10^3/uL (4.0-11.0) Red Blood Count 4.25 x10^6/uL (4.30-5.70) Hemoglobin 13.9 g/dL (13.0-17.5) Hematocrit 41.5 % (39.0-53.0) Mean Corpuscular Volume 98 fL (79-100) Mean Corpuscular Hemoglobin 33 pg (25-35) Mean Corpuscular Hemoglobin Concent 34 g/dL (31-37) Red Cell Distribution Width 13.8 % (11.5-14.5) Platelet Count 161 x10^3/uL (140-400) Sodium Level 140 mmol/L (136-145) 140 mmol/L (136-145) Potassium Level 3.1 mmol/L (3.5-5.1) 3.5 mmol/L (3.5-5.1) Chloride Level 105 mmol/L (98-107) 106 mmol/L (98-107) Carbon Dioxide Level 24 mmol/L (21-32) 24 mmol/L (21-32) Anion Gap 11 (6-14) 10 (6-14) Blood Urea Nitrogen 17 mg/dL (8-26) 16 mg/dL (8-26) Creatinine 0.8 mg/dL (0.7-1.3) 0.8 mg/dL (0.7-1.3) Estimated GFR (Cockcroft-Gault) 97.3 97.3 Glucose Level 202 mg/dL (70-99) 173 mg/dL (70-99) Calcium Level 8.2 mg/dL (8.5-10.1) 8.4 mg/dL (8.5-10.1) Magnesium Level 1.9 mg/dL (1.8-2.4) 1.7 mg/dL (1.8-2.4) Triglycerides Level 63 mg/dL (0-150) Cholesterol Level 145 mg/dL (0-200) LDL Cholesterol, Calculated 73 mg/dL (0-100) VLDL Cholesterol, Calculated 13 mg/dL (0-40) Non-HDL Cholesterol Calculated 86 mg/dL (0-129) HDL Cholesterol 59 mg/dL (40-60) Cholesterol/HDL Ratio 2.5 Laboratory Tests Test 08/12/16 03:35 Sodium Level 140 mmol/L (136-145) Potassium Level 3.5 mmol/L (3.5-5.1) Chloride Level 106 mmol/L (98-107) Carbon Dioxide Level 24 mmol/L (21-32) Anion Gap 10 (6-14) Blood Urea Nitrogen 16 mg/dL (8-26) Creatinine 0.8 mg/dL (0.7-1.3) Estimated GFR (Cockcroft-Gault) 97.3 Glucose Level 173 mg/dL (70-99) Calcium Level 8.4 mg/dL (8.5-10.1) Magnesium Level 1.7 mg/dL (1.8-2.4) Microbiology 08/11/16 Blood Culture - Preliminary, Resulted NO GROWTH AFTER 1 DAY Medications Current Medications Diltiazem HCl (Cardizem) 25 mg STK-MED ONCE .ROUTE ; Start 08/08/16 at 10:37; Stop 08/08/16 at 10:38; Status DC Diltiazem HCl 125 mg/Dextrose 125 ml @ 0 mls/hr CONT PRN IV SEE I/O RECORD Last administered on 08/12/16 06:20; Start 08/08/16 at 11:00 Diltiazem HCl (Cardizem) 20 mg 1X ONCE IVP Last administered on 08/08/16 10: 40; Start 08/08/16 at 11:00; Stop 08/08/16 at 11:01; Status DC Lorazepam (Ativan) 2 mg STK-MED ONCE .ROUTE ; Start 08/08/16 at 10:55; Stop 01/14 at 10:56; Status DC Iohexol (Omnipaque 350 Mg/ml) 90 ml 1X ONCE IV Last administered on 08/08/16 11:15; Start 08/08/16 at 11:15; Stop 08/08/16 at 11:16; Status DC Propofol 20 ml @ 0 mls/hr 1X ONCE IV Last administered on 08/08/16 11:20; Start 08/08/16 at 11:15; Stop 08/08/16 at 11:16; Status DC Info (Do NOT chart on this entry -- for MONITORING) 1 each PRN DAILY PRN MC SEE COMMENTS; Start 08/08/16 at 11:15; Stop 08/10/16 at 09:37; Status DC Fentanyl Citrate (Fentanyl 2ml Vial) 100 mcg 1X ONCE IV Last administered on 11:03; Start 08/08/16 at 11:15; Stop 08/08/16 at 11:16; Status DC Fentanyl Citrate (Fentanyl 2ml Vial) 100 mcg 1X ONCE IV Last administered on 11:16; Start 08/08/16 at 11:15; Stop 08/08/16 at 11:16; Status DC Propofol 50 ml @ As Directed STK-MED ONCE IV ; Start 08/08/16 at 11:17; Stop 01/14 at 11:18; Status DC Ondansetron HCl (Zofran) 4 mg PRN Q8HRS PRN IV NAUSEA/VOMITING; Start 08/08/16 at 11:30; Stop 08/09/16 at 11:29; Status DC Fentanyl Citrate (Fentanyl 2ml Vial) 50 mcg PRN Q2HR PRN IV PAIN Last administered on 08/08/16 13:16; Start 08/08/16 at 11:30; Stop 08/09/16 at 11:29 ; Status DC Levetiracetam 1000 mg/Sodium Chloride 110 ml @ 440 mls/hr 1X ONCE IV Last administered on 08/08/16 11:39; Start 08/08/16 at 11:45; Stop 08/08/16 at 11:59 ; Status DC Fentanyl Citrate (Fentanyl 2ml Vial) 100 mcg 1X ONCE IV ; Start 08/08/16 at 11: 45; Stop 08/08/16 at 11:46; Status DC Propofol 50 ml @ As Directed STK-MED ONCE IV ; Start 08/08/16 at 12:09; Stop 01/14 at 12:10; Status DC Lorazepam (Ativan) 2 mg 1X ONCE IV ; Start 08/08/16 at 13:00; Stop 08/08/16 at 13:01; Status DC Succinylcholine Chloride (Anectine) 100 mg 1X ONCE IV ; Start 08/08/16 at 13:00 ; Stop 08/08/16 at 13:01; Status DC Etomidate (Amidate) 20 mg 1X ONCE IV ; Start 08/08/16 at 13:00; Stop 08/08/16 at 13:01; Status DC Propofol 100 ml @ 0 mls/hr CONT PRN IV PER PROTOCOL Last administered on 09:08; Start 08/08/16 at 13:45; Stop 08/11/16 at 10:11; Status DC Fentanyl Citrate (Fentanyl 2ml Vial) 50 mcg PRN Q1HR PRN IV COMM; Start at 13:45 Chlorhexidine Gluconate (Peridex) 15 ml BID MM Last administered on 08/09/16 09:08; Start 08/08/16 at 21:00; Stop 08/10/16 at 08:29; Status DC Ipratropium [place] (Atrovent) 0.5 mg RTQID NEB Last administered on 08/12/16 08:44; Start 08/08/16 at 16:00 Metoprolol Tartrate (Lopressor) 12.5 mg BID PO Last administered on 08/08/16 21:51; Start 08/08/16 at 14:30; Stop 08/10/16 at 09:48; Status DC Lorazepam (Ativan) 1 mg PRN Q4HRS PRN IV ANXIETY / AGITATION Last administered on 08/12/16 02:34; Start 08/08/16 at 14:45 Levetiracetam (Keppra) 500 mg Q12HR PO Last administered on 08/12/16 08:21; Start 08/08/16 at 21:00 Multivitamins 10 ml/Folic Acid 1 mg/Thiamine HCl 100 mg/Sodium Chloride 1,011.2 ml @ 100 mls/ hr Q24H IV Last administered on 08/11/16 14:51; Start 08/08/16 at 16:00 Lorazepam (Ativan) 2 mg PRN Q4HRS PRN IV ANXIETY / AGITATION Last administered on 08/10/16 11:11; Start 08/08/16 at 15:15 Aspirin (Zunilda Aspirin) 325 mg DAILY PO Last administered on 08/09/16 09:09; Start 08/09/16 at 09:00; Stop 08/10/16 at 09:48; Status DC Diltiazem HCl (Cardizem 24hr Cd) 240 mg DAILY PO ; Start 08/09/16 at 09:00; Stop 08/10/16 at 09:48; Status DC Lactulose 20 gm Q48H PO Last administered on 08/09/16 09:13; Start 08/09/16 at 09:00; Stop 08/09/16 at 16:32; Status DC Pantoprazole Sodium (Protonix) 40 mg DAILYAC PO ; Start 08/09/16 at 07:30; Stop 08/09/16 at 09:36; Status DC Non-Formulary Medication 100 mg DAILY PO Last administered on 08/12/16 08:21; Start 08/09/16 at 09:00; Status UNV Pantoprazole Sodium (Protonix Vial) 40 mg DAILYAC IVP Last administered on 08/12 08:21; Start 08/09/16 at 10:00 Iohexol (Omnipaque 300 Mg/ml) 75 ml 1X ONCE IV ; Start 08/09/16 at 14:00; Stop 08/09/16 at 14:01; Status DC Info (Do NOT chart on this entry -- for MONITORING) 1 each PRN DAILY PRN MC SEE COMMENTS; Start 08/09/16 at 14:00; Stop 08/11/16 at 13:59; Status DC Lactulose 20 gm BID PO Last administered on 08/11/16 10:27; Start 08/09/16 at 21:00; Stop 08/11/16 at 10:52; Status DC Lorazepam (Ativan) 2 mg PRN Q1HR PRN IV For CIWA 8-14 Last administered on 08/10 02:49; Start 08/09/16 at 20:45 Lorazepam (Ativan) 4 mg PRN Q1HR PRN IV For CIWA 15 or greater Last administered on 08/10/16 06:55; Start 08/09/16 at 20:45 Haloperidol Lactate (Haldol) 5 mg PRN Q4HRS PRN IVP Hallucinatns,Confusn, Delirium Last administered on 08/10/16 12:29; Start 08/09/16 at 20:45; Stop at 10:11; Status DC Metoprolol Tartrate (Lopressor) 5 mg PRN Q4HRS PRN IVP ELEVATED BP, SEE COMMENTS Last administered on 08/10/16 02:49; Start 08/09/16 at 22:15; Stop at 09:48; Status DC Diltiazem HCl (Cardizem) 5 mg 1X ONCE IVP Last administered on 08/10/16 08:22 ; Start 08/10/16 at 08:15; Stop 08/10/16 at 08:16; Status DC Metoprolol Tartrate (Lopressor) 5 mg Q6HRS PRN IVP ELEVATED BP, SEE COMMENTS; Start 08/10/16 at 09:45; Stop 08/10/16 at 10:05; Status DC Aspirin (Aspirin) 300 mg DAILY [place] Last administered on 08/12/16 08:21; Start 08/10/16 at 09:45 Magnesium Sulfate/ Dextrose 50 ml @ 25 mls/hr 1X ONCE IV Last administered on 08/10/16 10:56; Start 08/10/16 at 10:00; Stop 08/10/16 at 11:59; Status DC Metoprolol Tartrate (Lopressor) 5 mg Q6HRS IVP Last administered on 08/12/16 05:00; Start 08/10/16 at 10:15 Enoxaparin Sodium (Lovenox 30mg Syringe) 30 mg Q24H SQ ; Start 08/10/16 at 15:00 ; Stop 08/10/16 at 15:00; Status DC Enoxaparin Sodium (Lovenox 40mg Syringe) 40 mg Q24H SQ Last administered on 15:57; Start 08/10/16 at 15:00 Acetaminophen (Tylenol) 650 mg PRN Q6HRS PRN PEG MILD PAIN / TEMP Last administered on 08/12/16 05:00; Start 08/10/16 at 23:45 Succinylcholine Chloride (Anectine) 200 mg STK-MED ONCE .ROUTE ; Start 08/11/16 at 01:30; Stop 08/11/16 at 01:31; Status DC Succinylcholine Chloride (Anectine) 200 mg STK-MED ONCE .ROUTE ; Start 08/11/16 at 01:30; Stop 08/11/16 at 08:48; Status DC Haloperidol Lactate (Haldol) 2.5 mg PRN Q4HRS PRN IVP Hallucinatns,Confusn, Delirium; Start 08/11/16 at 10:15 Potassium Chloride (KCl Oral Soln) 40 meq 1X ONCE PEG Last administered on 10:30; Start 08/11/16 at 10:30; Stop 08/11/16 at 10:31; Status DC Potassium Chloride (KCl Oral Soln) 40 meq 1X ONCE PEG Last administered on 16:00; Start 08/11/16 at 15:00; Stop 08/11/16 at 15:01; Status DC Digoxin (Lanoxin) 500 mcg 1X ONCE IV Last administered on 08/11/16 10:30; Start 08/11/16 at 10:30; Stop 08/11/16 at 10:31; Status DC Lactulose 20 gm QD PO Last administered on 08/12/16 08:21; Start 08/12/16 at 09:00 Phenylephrine HCl 20 mg/Sodium Chloride 252 ml @ 0 mls/hr 1X ONCE IV ; Start at 14:30; Stop 08/11/16 at 14:31; Status Cancel Magnesium Sulfate/ Dextrose 50 ml @ 25 mls/hr 1X ONCE IV Last administered on 08/12/16 09:32; Start 08/12/16 at 09:00; Stop 08/12/16 at 10:59 Active Scripts Active Lactulose 20 Gm/30 Ml Solution 20 Gm PO QODAY Ativan (Lorazepam) 0.5 Mg Tablet 0.5 Mg PO BID Diltiazem 24HR Cd (Diltiazem Hcl) 240 Mg Cap.er.24h 240 Mg PO DAILY Vitamin B-1 (Thiamine Hcl) 100 Mg Tablet 100 Mg PO DAILY [place] 5-325 Tablet (Acetaminophen/Hydrocodone Bitart) 1 Each Tablet 1 Tab PO PRN Q6HRS PRN Reported Omeprazole 20 Mg Capsule.dr 20 Mg PO DAILY Zofran Odt (Ondansetron) 8 Mg Tab.rapdis 1 Tab PO PRN Q8HRS PRN [place] 4.2-0.7 mg Film (Buprenorphine HCl/Naloxone HCl) 1 Each Film 1 Each BC DAILY Vitals/I & O Vital Sign - Last 24 Hours 08/11/16 08/11/16 08/11/16 08/11/16 10:00 10:30 11:00 11:00 Temp 98.9 98.9 Pulse 108 115 100 106 Resp 32 28 23 B/P (MAP) 138/95 (109) 143/88 152/90 (110) 152/90 (110) Pulse Ox 95 97 95 O2 Delivery Nasal Cannula Nasal Cannula Nasal Cannula O2 Flow Rate 4.0 4.0 4.0 08/11/16 08/11/16 08/11/16 08/11/16 12:00 12:00 12:26 12:47 Temp 98.9 98.9 Pulse 113 112 Resp 20 B/P (MAP) 162/98 (119) 166/94 Pulse Ox 97 97 O2 Delivery Nasal Cannula Nasal Cannula Nasal Cannula O2 Flow Rate 4.0 6.0 4.0 08/11/16 08/11/16 08/11/16 08/11/16 13:19 14:05 15:00 15:25 Temp 98.9 98.9 98.9 98.9 98.9 98.9 Pulse 84 102 103 Resp 18 25 B/P (MAP) 157/93 (114) 156/96 (116) 161/90 (113) Pulse Ox 97 97 97 96 O2 Delivery Nasal Cannula Nasal Cannula Nasal Cannula Nasal Cannula O2 Flow Rate 4.0 4.0 3.0 6.0 08/11/16 08/11/16 08/11/16 08/11/16 16:04 16:05 18:14 18:23 Temp 98.9 98.9 98.9 98.9 Pulse 110 119 86 Resp 20 18 B/P (MAP) 168/95 (119) 159/88 136/92 (107) Pulse Ox 96 96 O2 Delivery Nasal Cannula Nasal Cannula Nasal Cannula O2 Flow Rate 4.0 3.0 3.0 08/11/16 08/11/16 08/11/16 08/11/16 19:00 19:31 19:35 20:00 Temp 97.8 97.8 Pulse 100 98 Resp 36 28 B/P (MAP) 147/88 (107) 135/79 (97) Pulse Ox 94 95 94 O2 Delivery Nasal Cannula Nasal Cannula Nasal Cannula Nasal Cannula O2 Flow Rate 3.0 3.0 3.0 3.0 08/11/16 08/11/16 08/11/16 08/11/16 21:00 22:00 23:00 23:46 Temp 99.3 99.3 Pulse 102 98 98 Resp 28 30 25 B/P (MAP) 134/85 (101) 136/79 (98) 149/90 (109) Pulse Ox 93 94 94 O2 Delivery Nasal Cannula Nasal Cannula Nasal Cannula O2 Flow Rate 3.0 3.0 3.0 08/11/16 08/11/16 08/12/16 08/12/16 23:47 23:53 00:04 01:00 Pulse 73 96 80 Resp 28 26 B/P (MAP) 137/77 (97) 142/83 124/74 (91) Pulse Ox 94 93 O2 Delivery Nasal Cannula Nasal Cannula Nasal Cannula O2 Flow Rate 3.0 3.0 3.0 08/12/16 08/12/16 08/12/16 08/12/16 02:00 03:00 03:59 04:00 Pulse 80 90 93 Resp 34 28 36 B/P (MAP) 124/70 (88) 119/68 (85) 119/74 (89) Pulse Ox 93 94 94 O2 Delivery Nasal Cannula Nasal Cannula Nasal Cannula Nasal Cannula O2 Flow Rate 3.0 3.0 3.0 3.0 08/12/16 08/12/16 08/12/16 08/12/16 04:01 05:00 05:00 06:00 Temp 100.9 99.0 100.9 99.0 Pulse 87 87 82 Resp 38 28 B/P (MAP) 104/78 104/78 (87) 138/77 (97) Pulse Ox 95 93 O2 Delivery Nasal Cannula Nasal Cannula O2 Flow Rate 3.0 3.0 08/12/16 08/12/16 08/12/16 08/12/16 07:00 08:00 08:45 09:00 Temp 99.3 99.3 Pulse 86 90 95 Resp 30 26 20 B/P (MAP) 106/75 (85) 131/77 (95) 134/75 (94) Pulse Ox 97 97 97 97 O2 Delivery Nasal Cannula Nasal Cannula Nasal Cannula Nasal Cannula O2 Flow Rate 3.0 3.0 3.0 3.0 Intake and Output 08/11/16 08/11/16 08/12/16 14:59 22:59 06:59 Intake Total 945 ml 404 ml Output Total 900 ml 675 ml Balance 45 ml -271 ml Nutrition Consultation Dietary Evaluation: Recommendations by RD: Increase Calorie Intake Comments: Rec. continue the TF's with Fibersource HN, goal rate 55 ml/hr start at 25 ml/hr, increase by 25 ml/hr q8h to goal rate flushes 140 cc q6h if no IVF's running Expected Outcomes/Goals: tolerate TF's at goal rate - met no further wt loss while in the hospital - met Malnutrition Findings: Food and Nutrition Intake (Mod: <75% est energy req 7days Reduced Slip Seat Coverer Strength: N/A Reduced Slip Seat Coverer Strength (Non-Sev: N/A Malnutrition related to morbid: No Weight Status: Underweight Fluid Accumulation (N/A): N/A DARRIAN RENTERIA MD Aug 12, 2016 09:35
--- NOTE | 2016-08-12 09:54 | PDOC ---
PULMONARY PROGRESS NOTES Subjective extubated 08/09 more awake Vitals Vital Signs Date Time Temp Pulse Resp B/P (MAP) Pulse Ox O2 Delivery O2 Flow Rate FiO2 08/12/16 09:00 95 20 134/75 (94) 97 Nasal Cannula 3.0 08/12/16 08:00 99.3 99.3 General: Alert Lungs: Other (decrease bs) Cardiovascular: S1 Abdomen: Soft Extremities: No Edema Skin: Warm Labs Laboratory Tests Test 08/11/16 04:15 08/12/16 03:35 White Blood Count 12.1 x10^3/uL (4.0-11.0) Red Blood Count 4.25 x10^6/uL (4.30-5.70) Hemoglobin 13.9 g/dL (13.0-17.5) Hematocrit 41.5 % (39.0-53.0) Mean Corpuscular Volume 98 fL (79-100) Mean Corpuscular Hemoglobin 33 pg (25-35) Mean Corpuscular Hemoglobin Concent 34 g/dL (31-37) Red Cell Distribution Width 13.8 % (11.5-14.5) Platelet Count 161 x10^3/uL (140-400) Sodium Level 140 mmol/L (136-145) 140 mmol/L (136-145) Potassium Level 3.1 mmol/L (3.5-5.1) 3.5 mmol/L (3.5-5.1) Chloride Level 105 mmol/L (98-107) 106 mmol/L (98-107) Carbon Dioxide Level 24 mmol/L (21-32) 24 mmol/L (21-32) Anion Gap 11 (6-14) 10 (6-14) Blood Urea Nitrogen 17 mg/dL (8-26) 16 mg/dL (8-26) Creatinine 0.8 mg/dL (0.7-1.3) 0.8 mg/dL (0.7-1.3) Estimated GFR (Cockcroft-Gault) 97.3 97.3 Glucose Level 202 mg/dL (70-99) 173 mg/dL (70-99) Calcium Level 8.2 mg/dL (8.5-10.1) 8.4 mg/dL (8.5-10.1) Magnesium Level 1.9 mg/dL (1.8-2.4) 1.7 mg/dL (1.8-2.4) Triglycerides Level 63 mg/dL (0-150) Cholesterol Level 145 mg/dL (0-200) LDL Cholesterol, Calculated 73 mg/dL (0-100) VLDL Cholesterol, Calculated 13 mg/dL (0-40) Non-HDL Cholesterol Calculated 86 mg/dL (0-129) HDL Cholesterol 59 mg/dL (40-60) Cholesterol/HDL Ratio 2.5 Laboratory Tests Test 08/12/16 03:35 Sodium Level 140 mmol/L (136-145) Potassium Level 3.5 mmol/L (3.5-5.1) Chloride Level 106 mmol/L (98-107) Carbon Dioxide Level 24 mmol/L (21-32) Anion Gap 10 (6-14) Blood Urea Nitrogen 16 mg/dL (8-26) Creatinine 0.8 mg/dL (0.7-1.3) Estimated GFR (Cockcroft-Gault) 97.3 Glucose Level 173 mg/dL (70-99) Calcium Level 8.4 mg/dL (8.5-10.1) Magnesium Level 1.7 mg/dL (1.8-2.4) Medications Active Scripts Medications Dose Route/Sig Max Daily Dose Days Date Category Lactulose 20 Gm/30 Ml Solution 20 Gm PO QODAY 02/03/16 Rx Ativan (Lorazepam) 0.5 Mg Tablet 0.5 Mg PO BID 02/03/16 Rx Diltiazem 24HR Cd (Diltiazem Hcl) 240 Mg Cap.er.24h 240 Mg PO DAILY 02/03/16 Rx Vitamin B-1 (Thiamine Hcl) 100 Mg Tablet 100 Mg PO DAILY 02/03/16 Rx Omeprazole 20 Mg Capsule.dr 20 Mg PO DAILY 01/31/16 Reported Zofran Odt (Ondansetron) 8 Mg Tab.rapdis 1 Tab PO PRN Q8HRS PRN 01/31/16 Reported [place] 4.2-0.7 mg Film (Buprenorphine HCl/Naloxone HCl) 1 Each Film 1 Each BC DAILY 01/31/16 Reported [place] 5-325 Tablet (Acetaminophen/Hydrocodone Bitart) 1 Each Tablet 1 Tab PO PRN Q6HRS PRN 12/01/15 Rx Impression . 1. Acute respiratory failure secondary to seizures. extubated 08/09 2. Status epilepticus. 3. Positive drug screen for cannabinoids. 4. Lactic acidosis related to seizures. 5. Hepatitis. 6. encephalopathy, improving 7. Fever, consult ID/ repeat CXR Plan . 1. Nasal canula 2. Follow Neurology input. 3. CT chest for pulmonary embolism revealed a 7 mm bullae in LLL 4. EEG done 5. CXR 6. ID consult/ antibiotics D/W RN and family YOVANY AMBROSIO MD Aug 12, 2016 09:54
--- NOTE | 2016-08-12 11:08 | PDOC ---
CARDIO Progress Notes Date and Time Date of Service 08/12/2016 Time of Evaluation 1107 Subjective Subjective: No Chest Pain, No shortness of breath, No Palpitations, No Dizziness, Other (recalls being confused) Comments: alert today;answering questions Vitals Vitals Vital Signs Date Time Temp Pulse Resp B/P (MAP) Pulse Ox O2 Delivery O2 Flow Rate FiO2 08/12/16 10:00 98 30 131/88 (102) 96 Nasal Cannula 3.0 08/12/16 08:00 99.3 99.3 Weight Weight [ ] Input and Output Intake and Output Intake and Output 08/12/16 07:00 Intake Total 1349 ml Output Total 1575 ml Balance -226 ml Tube Feeding 809 ml Other 540 ml Output Urine Total 1575 ml # Bowel Movements 1 Laboratory Labs Laboratory Tests Test 08/12/16 03:35 Sodium Level 140 mmol/L (136-145) Potassium Level 3.5 mmol/L (3.5-5.1) Chloride Level 106 mmol/L (98-107) Carbon Dioxide Level 24 mmol/L (21-32) Anion Gap 10 (6-14) Blood Urea Nitrogen 16 mg/dL (8-26) Creatinine 0.8 mg/dL (0.7-1.3) Estimated GFR (Cockcroft-Gault) 97.3 Glucose Level 173 mg/dL (70-99) Calcium Level 8.4 mg/dL (8.5-10.1) Magnesium Level 1.7 mg/dL (1.8-2.4) Microbiology Micro Microbiology 08/11/16 Blood Culture - Preliminary, Resulted NO GROWTH AFTER 1 DAY Case Discussion Case Discussed with: Family Physical Exam HEENT: Neck Supple W Full Motion Chest: Symmetric LUNGS: Other (coarse anteriorly) Heart: S1S2, irregularly irregular, other (tele - atrial fib RVR) Abdomen: Soft N/T Extremities: No Edema Neurology: non-verbal Assessment Assessment 1. atrial fib with RVR 2nd episode since 01/2016 rates labile - convert to diltiazem and BB via feeding tube; stop IV diltiazem convert to ASA per feeding tube - not a candidate for aggressive OAC due to ETOH and financial means supplement K and Mg aggressively due to use of lactulose 2. acute respiratory failure remains extubated per PULM 3. seizure encephalopathy improving, more alert today, answering questions EEG with diffuse encephalopathy small right frontal and parietal junction infarction - per neuro 4. hepatitis C/ETOH abuse NH3 treated with lactulose with improvement May transfer to [facility] EVELINE MARCUS CHEMISTRY SPECIALIST Aug 12, 2016 11:08
--- NOTE | 2016-08-12 11:38 | PDOC ---
PROGRESS NOTES Assessment Assessment Seizure x 2 on 08/08/16, alcohol related. Metabolic encephalopathy. Toxic encephalopathy. Respiratory failure. Tiny right frontal and parietal junction infract. Alcoholic. Lactic acidosis. HCV Ammonia 254 Cannabinoids positive. Back pain. RECOMMENDATIONS/PLAN: Alcohol detoxication protocol. Continue Keppra 500 mg bid. Continue ASA 300 mg Rectal daily. Treat medical diseases. Discussed with his daughter at bedside on 08/09. EEG on 08/10/16 showed diffuse encephalopathy. Brain MRI: Tiny infract in right frontal and parietal junction. PAST MEDICAL HISTORY: Hep C cirrhosis, alcoholism, chronic nausea, vomiting, abdominal pain and narcotic addiction. FAMILY HISTORY: Unknown. SOCIAL HISTORY: Lives with his . Heavy alcohol 8-10 beers and wine a day x 40 years. Smoking 2 packs a day x 40 years. Marijuana use. ALLERGIES: No known drug allergies. REVIEW OF SYSTEMS: Constitutional: Mild malnutrition. Head: No recent traumatic brain or head injury. Skin: No edema, or rash. Ear: No infection, tinnitus. Eyes: No vision loss, or diplopia. Nose: No bleeding or purulent discharges. Hearing: No hearing decrease. Neck: No injury. Cardiac: No ID Pulmonary: No pneumonia. GI: No GI Ulcer, GI bleeding Urinary/genital: No dysuria, hematuria, incontinence. Endocrine: No cousin face, craniofacial dysmorphism, polydactyly. Skeletomuscular: No muscular atrophy, deformity. Neurological: see HP. Psychiatric:Alcohol, smoking, marijuana. Otherwise, not [id number] review of systems. PHYSICAL EXAMINATION: General appearance in subacute distress. HEENT: Normocephalic and nontraumatic. Eyes, nose, ears, and throat are unremarkable. Neck is supple. No lymphadenopathy. No Crepitus. Cardiovascular: S1, S2, regular rate and rhythm. Pulmonary: relative clear to auscultation bilaterally. Abdomen: Bowel sounds are positive. Abdomen is soft, nontender, and nondistended. Extremities: No rash, lesions, or edema. No restriction of range of motion NEUROLOGICAL EXAMINATION: Awake from time to time. Mourning. Not oriented to time, place and person. PERRL. EOMI. CN: no focal findings. Muscle tone: within normal. Muscle strength: moves all extremities to pain stimuli. DTR: 1-2 Plantar reflex: Neutral response bilaterally Gait: unable to walk. Sensory exam: Minimal response to stimuli. Not able to access cerebellar signs due to not follow commands. Objective Objective Vital Signs Date Time Temp Pulse Resp B/P (MAP) Pulse Ox O2 Delivery O2 Flow Rate FiO2 08/12/16 11:00 97 24 135/91 (106) 96 Nasal Cannula 3.0 08/12/16 08:00 99.3 99.3 Intake and Output 08/12/16 06:59 Intake Total 1349 ml Output Total 1575 ml Balance -226 ml Tube Feeding 809 ml Other 540 ml Output Urine Total 1575 ml # Bowel Movements 1 Vitals Signs Vitals VS - Last 72 Hours, by Label Date Time Temp Pulse Resp B/P (MAP) Pulse Ox O2 Delivery O2 Flow Rate FiO2 08/12/16 11:00 97 24 135/91 (106) 96 Nasal Cannula 3.0 08/12/16 10:00 98 30 131/88 (102) 96 Nasal Cannula 3.0 08/12/16 09:00 95 20 134/75 (94) 97 Nasal Cannula 3.0 08/12/16 08:45 97 Nasal Cannula 3.0 08/12/16 08:00 99.3 90 26 131/77 (95) 97 Nasal Cannula 3.0 99.3 08/12/16 07:00 86 30 106/75 (85) 97 Nasal Cannula 3.0 08/12/16 06:00 99.0 82 28 138/77 (97) 93 Nasal Cannula 3.0 99.0 08/12/16 05:00 87 38 104/78 (87) 95 Nasal Cannula 3.0 08/12/16 05:00 87 104/78 08/12/16 04:01 100.9 100.9 08/12/16 04:00 93 36 119/74 (89) 94 Nasal Cannula 3.0 08/12/16 03:59 Nasal Cannula 3.0 08/12/16 03:00 90 28 119/68 (85) 94 Nasal Cannula 3.0 08/12/16 02:00 80 34 124/70 (88) 93 Nasal Cannula 3.0 08/12/16 01:00 80 26 124/74 (91) 93 Nasal Cannula 3.0 08/12/16 00:04 Nasal Cannula 3.0 08/11/16 23:53 96 142/83 08/11/16 23:47 73 28 137/77 (97) 94 Nasal Cannula 3.0 08/11/16 23:46 99.3 99.3 08/11/16 23:00 98 25 149/90 (109) 94 Nasal Cannula 3.0 08/11/16 22:00 98 30 136/79 (98) 94 Nasal Cannula 3.0 08/11/16 21:00 102 28 134/85 (101) 93 Nasal Cannula 3.0 08/11/16 20:00 98 28 135/79 (97) 94 Nasal Cannula 3.0 08/11/16 19:35 Nasal Cannula 3.0 08/11/16 19:31 95 Nasal Cannula 3.0 08/11/16 19:00 97.8 100 36 147/88 (107) 94 Nasal Cannula 3.0 97.8 08/11/16 18:23 98.9 86 18 136/92 (107) 96 Nasal Cannula 3.0 98.9 08/11/16 18:14 119 159/88 08/11/16 16:05 98.9 110 20 168/95 (119) 96 Nasal Cannula 3.0 98.9 08/11/16 16:04 Nasal Cannula 4.0 08/11/16 15:25 96 Nasal Cannula 6.0 08/11/16 15:00 98.9 103 161/90 (113) 97 Nasal Cannula 3.0 98.9 08/11/16 14:05 98.9 102 25 156/96 (116) 97 Nasal Cannula 4.0 98.9 08/11/16 13:19 98.9 84 18 157/93 (114) 97 Nasal Cannula 4.0 98.9 08/11/16 12:47 112 166/94 08/11/16 12:26 98.9 113 20 162/98 (119) 97 Nasal Cannula 4.0 98.9 08/11/16 12:00 97 Nasal Cannula 6.0 08/11/16 12:00 Nasal Cannula 4.0 08/11/16 11:00 98.9 106 23 152/90 (110) 95 Nasal Cannula 4.0 98.9 08/11/16 11:00 100 28 152/90 (110) 97 Nasal Cannula 4.0 08/11/16 10:30 115 143/88 08/11/16 10:00 108 32 138/95 (109) 95 Nasal Cannula 4.0 08/11/16 09:00 108 36 147/87 (107) 96 Nasal Cannula 4.0 08/11/16 08:00 Nasal Cannula 4.0 08/11/16 08:00 99.1 94 32 120/69 (86) 96 Nasal Cannula 4.0 99.1 08/11/16 07:10 98 Nasal Cannula 6.0 08/11/16 07:00 93 32 142/80 (100) 95 Nasal Cannula 4.0 Laboratory Laboratory Laboratory Tests Test 08/12/16 03:35 Sodium Level 140 mmol/L (136-145) Potassium Level 3.5 mmol/L (3.5-5.1) Chloride Level 106 mmol/L (98-107) Carbon Dioxide Level 24 mmol/L (21-32) Anion Gap 10 (6-14) Blood Urea Nitrogen 16 mg/dL (8-26) Creatinine 0.8 mg/dL (0.7-1.3) Estimated GFR (Cockcroft-Gault) 97.3 Glucose Level 173 mg/dL (70-99) Calcium Level 8.4 mg/dL (8.5-10.1) Magnesium Level 1.7 mg/dL (1.8-2.4) Microbiology 08/11/16 Blood Culture - Preliminary, Resulted NO GROWTH AFTER 1 DAY Medication Medications Current Medications Aspirin ([employer] Aspirin) 325 mg [id number] FT ; Start 08/13/16 at 08:00 Diltiazem HCl (Cardizem) 60 mg Q6HRS PO ; Start 08/12/16 at 11:30 Lactulose 20 gm QD PO Last administered on 08/12/16 08:21; Start 08/12/16 at 09:00 Magnesium Sulfate/ Dextrose 50 ml @ 25 mls/hr 1X ONCE IV Last administered on 08/12/16t 09:32; Start 08/12/16 at 09:00; Stop 08/12/16 at 10:59; Status DC Magnesium Sulfate/ Dextrose 50 ml @ 25 mls/hr 1X ONCE IV ; Start 08/12/16 at 16 :00; Stop 08/12/16 at 17:59 Metoprolol Tartrate (Lopressor) 25 mg BID FT ; Start 08/12/16 at 21:00 Phenylephrine HCl 20 mg/Sodium Chloride 252 ml @ 0 mls/hr 1X ONCE IV ; Start at 14:30; Stop 08/11/16 at 14:31; Status Cancel Potassium Chloride (KCl Oral Soln) 20 meq BID PEG ; Start 08/12/16 at 11:15 Potassium Chloride (KCl Oral Soln) 40 meq 1X ONCE PEG Last administered on t 16:00; Start 08/11/16 at 15:00; Stop 08/11/16 at 15:01; Status DC Comment Review of Relevant I have reviewed the following items chikis (where applicable) has been applied. ADONIS HUITRON MD Aug 12, 2016 11:38
--- NOTE | 2016-08-12 11:48 | RAD ---
Portable chest, 08/12/2016: History: Fever Comparison is made to a study from 08/09/2016. An NG tube extends into the stomach. The heart size is normal. There is calcific plaquing of the aorta. Minimal streaky infrahilar opacities have developed bilaterally. There is no evidence of pleural fluid. IMPRESSION: 1. NG tube extends in the stomach. 2. Minimal streaky bilateral infrahilar atelectasis/infiltrate.
--- NOTE | 2016-08-12 11:48 | PDOC ---
Subjective: Subjective: Says hi. Says the year is 2016 and then says it's 1971. Objective: Objective: Per RN - more alert, talking today. No stool today. Vital Signs: Vital Signs Date Time Temp Pulse Resp B/P (MAP) Pulse Ox O2 Delivery O2 Flow Rate FiO2 08/12/16 11:00 97 24 135/91 (106) 96 Nasal Cannula 3.0 08/12/16 08:00 99.3 99.3 Labs: Laboratory Tests Test 08/12/16 03:35 Sodium Level 140 mmol/L Potassium Level 3.5 mmol/L Chloride Level 106 mmol/L Carbon Dioxide Level 24 mmol/L Anion Gap 10 Blood Urea Nitrogen 16 mg/dL Creatinine 0.8 mg/dL Estimated GFR (Cockcroft-Gault) 97.3 Glucose Level 173 mg/dL Calcium Level 8.4 mg/dL Magnesium Level 1.7 mg/dL Imaging: CXR 08/12/16 PENDING PE: GEN: NAD LUNGS: nasal cannula HEART: tachy ABD: S/ND/NT NEURO/PSYCH: mumbling mostly but able to understand a few words A/P: Seizure, encephalopathy, A Fib, resp failure Alcoholism, Hep C, n/v, weight loss -CT w/ fatty liver Hyperammonemia - resolved -on lactulose QD -- Improved mental status today. Will increase lactulose to BID - goal 2-3 stools daily. CHEN LAURENT Aug 12, 2016 11:48
[2016-08-12] MEDS: POTASSIUM CHLORIDE 20 MEQ/15 ML ORAL LIQUID. PEG SCH ×2 (12:26→21:52)
[2016-08-12] MEDS: dilTIAZem HCL 30 MG TABLET PO SCH ×3 (12:29→23:50)
[2016-08-12] MEDS: ENOXAPARIN 40 MG/0.4 ML SYRINGE. SQ SCH (15:00)
[2016-08-12] MEDS: MULTIVIT INFUSN,ADULT 4,VIT K 10 ML, FOLIC ACID 1 MG, THIAMINE 100 MG in IV NORMAL SALI... IV SCH (17:50)
[2016-08-12] MEDS ORDERED: METOPROLOL TART IMMED RELEASE 25 MG TABLET. FT SCH (21:00)
[2016-08-13 03:05] VITALS: BP 163/96
[2016-08-13 05:33] LABS: BASO % 0 % (0-3); EOS % 0 % (0-3); HEMATOCRIT 38.5 % (39.0-53.0); HEMOGLOBIN 12.9 g/dL (13.0-17.5); LYMPH # 0.8 x10^3/uL (1.0-4.8); LYMPH % 7 % (24-48); MEAN CORPUSCULAR HEMOGLOBIN 33 pg (25-35); MEAN CORPUSCULAR HGB CONC 34 g/dL (31-37); MEAN CORPUSCULAR VOLUME 97 fL (79-100); MONO % 9 % (0-9); NEUT % 84 % (31-73); PLATELET COUNT 161 x10^3/uL (140-400); RED BLOOD COUNT 3.96 x10^6/uL (4.30-5.70); RED CELL DISTRIBUTION WIDTH 13.5 % (11.5-14.5); WHITE BLOOD COUNT 11.9 x10^3/uL (4.0-11.0)
[2016-08-13] MEDS: dilTIAZem HCL 30 MG TABLET PO SCH ×3 (06:06→18:26)
[2016-08-13 06:20] LABS: CALCIUM 8.3 mg/dL (8.5-10.1); CREATININE 0.7 mg/dL (0.7-1.3); GFR 113.5; POTASSIUM 3.3 mmol/L (3.5-5.1)
[2016-08-13 07:05] VITALS: BP 143/90
[2016-08-13] MEDS: IPRATROPIUM BROMIDE 0.5 MG/2.5 ML NEBU. NEB SCH ×4 (07:57→20:52)
[2016-08-13] MEDS: POTASSIUM CHLORIDE 20 MEQ/15 ML ORAL LIQUID. PEG SCH ×4 (09:00→21:27)
--- NOTE | 2016-08-13 09:46 | PDOC ---
CARDIO Progress Notes Date and Time Date of Service 08/13/2016 Time of Evaluation 0942 Subjective Subjective: No Chest Pain, No shortness of breath, No Palpitations, No Dizziness Comments: alert today;answering questions Vitals Vitals Vital Signs Date Time Temp Pulse Resp B/P (MAP) Pulse Ox O2 Delivery O2 Flow Rate FiO2 08/13/16 07:57 Nasal Cannula 3.0 08/13/16 07:05 98.2 103 24 143/90 (107) 99 98.2 Weight Weight [ ] Input and Output Intake and Output Intake and Output 08/13/16 07:00 Intake Total 2400 ml Output Total 2000 ml Balance 400 ml IV Total 1380 ml Tube Feeding 570 ml Other 450 ml Output Urine Total 2000 ml Gastric Drainage Total 0 ml # Bowel Movements 1 Laboratory Labs Laboratory Tests Test 08/13/16 05:00 White Blood Count 11.9 x10^3/uL (4.0-11.0) Red Blood Count 3.96 x10^6/uL (4.30-5.70) Hemoglobin 12.9 g/dL (13.0-17.5) Hematocrit 38.5 % (39.0-53.0) Mean Corpuscular Volume 97 fL (79-100) Mean Corpuscular Hemoglobin 33 pg (25-35) Mean Corpuscular Hemoglobin Concent 34 g/dL (31-37) Red Cell Distribution Width 13.5 % (11.5-14.5) Platelet Count 161 x10^3/uL (140-400) Neutrophils (%) (Auto) 84 % (31-73) Lymphocytes (%) (Auto) 7 % (24-48) Monocytes (%) (Auto) 9 % (0-9) Eosinophils (%) (Auto) 0 % (0-3) Basophils (%) (Auto) 0 % (0-3) Neutrophils # (Auto) 10.0 x10^3uL (1.8-7.7) Lymphocytes # (Auto) 0.8 x10^3/uL (1.0-4.8) Monocytes # (Auto) 1.1 x10^3/uL (0.0-1.1) Eosinophils # (Auto) 0.0 x10^3/uL (0.0-0.7) Basophils # (Auto) 0.0 x10^3/uL (0.0-0.2) Sodium Level 141 mmol/L (136-145) Potassium Level 3.3 mmol/L (3.5-5.1) Chloride Level 107 mmol/L (98-107) Carbon Dioxide Level 23 mmol/L (21-32) Anion Gap 11 (6-14) Blood Urea Nitrogen 16 mg/dL (8-26) Creatinine 0.7 mg/dL (0.7-1.3) Estimated GFR (Cockcroft-Gault) 113.5 Glucose Level 158 mg/dL (70-99) Calcium Level 8.3 mg/dL (8.5-10.1) Magnesium Level 1.8 mg/dL (1.8-2.4) Microbiology Micro Microbiology 08/11/16 Blood Culture - Preliminary, Resulted NO GROWTH AFTER 2 DAYS Case Discussion Case Discussed with: Family Physical Exam HEENT: Neck Supple W Full Motion Chest: Symmetric LUNGS: Other (coarse anteriorly) Heart: S1S2, irregularly irregular, other (tele - atrial fib RVR) Abdomen: Soft N/T Extremities: No Edema Neurology: alert, follow commands Assessment Assessment 1. atrial fib with RVR 2nd episode since 01/2016 rates remain labile - will increase BB today; continue CCB; consider digoxin convert to ASA per feeding tube - not a candidate for aggressive OAC due to ETOH, seizures and financial means supplement K and Mg aggressively due to use of lactulose 2. acute respiratory failure remains extubated per PULM 3. seizure encephalopathy improving, more alert today, answering questions EEG with diffuse encephalopathy small right frontal and parietal junction infarction - per neuro 4. hepatitis C/ETOH abuse NH3 treated with lactulose with improvement EVELINE MARCUS APRN Aug 13, 2016 09:46
[2016-08-13] MEDS: LACTULOSE 20 GM/30 ML SOLUTION. PO SCH (10:00)
[2016-08-13] MEDS ORDERED: MAGNESIUM SULFATE 2GM 50 ML IV ONE (10:00)
[2016-08-13] MEDS: levETIRAcetam 500 MG TABLET PO SCH ×2 (10:01→21:27)
[2016-08-13] MEDS: ASPIRIN 325 MG TABLET FT SCH (10:02)
[2016-08-13] MEDS: THIAMINE 100 MG TABLET. PO SCH (10:02)
[2016-08-13] MEDS: METOPROLOL TART IMMED RELEASE 25 MG TABLET. FT SCH ×2 (10:03→21:26)
[2016-08-13] MEDS: PANTOPRAZOLE IV PUSH 40 MG VIAL. IVP SCH (10:16)
[2016-08-13 10:55] VITALS: BP 121/87
--- NOTE | 2016-08-13 11:16 | PDOC ---
PROGRESS NOTES Chief Complaint Chief Complaint cc: seizure like activity A/P Acute hypoxic respiratory failure: Extubated 08/09: Hepatic encephalopathy, persistent Possible alcohol withdrawal seizures Chronic alcoholism: Paroxysmal, Afib: on Cardizem Neurogenic dysphagia Elevated Ammonia Hypokalemia Hx hep C Plan NG tube tube feeds day night orientation prn lactulose d/w , no narcotics [facility] protocol labs reviewed, PT/OT fall precautions History of Present Illness History of Present Illness Extubated 2 days ago but encephalopathy persists concerned HEavy education and counselling done about likely what's causing the persistent encephalopathy SOunds gurggly Remains eyes closed Seen in ICU MOre awake today! MAintains on cardizem gtt at 10 mcgs some low grade temps at bedside PLAN: CHeck UA no fever confused no chest pain Vitals Vitals Vital Signs Date Time Temp Pulse Resp B/P (MAP) Pulse Ox O2 Delivery O2 Flow Rate FiO2 08/13/16 10:55 99.4 74 24 121/87 (98) 100 3.0 99.4 08/13/16 08:00 Nasal Cannula Physical Exam General: Alert, No acute distress, Other (not oriented) Heart: Normal S1, Normal S2, No murmurs Lungs: Other (decrease bs) Abdomen: Normal bowel sounds Extremities: No edema, Normal pulses Skin: No rashes Labs LABS Laboratory Tests Test 08/13/16 05:00 White Blood Count 11.9 x10^3/uL (4.0-11.0) Red Blood Count 3.96 x10^6/uL (4.30-5.70) Hemoglobin 12.9 g/dL (13.0-17.5) Hematocrit 38.5 % (39.0-53.0) Mean Corpuscular Volume 97 fL (79-100) Mean Corpuscular Hemoglobin 33 pg (25-35) Mean Corpuscular Hemoglobin Concent 34 g/dL (31-37) Red Cell Distribution Width 13.5 % (11.5-14.5) Platelet Count 161 x10^3/uL (140-400) Neutrophils (%) (Auto) 84 % (31-73) Lymphocytes (%) (Auto) 7 % (24-48) Monocytes (%) (Auto) 9 % (0-9) Eosinophils (%) (Auto) 0 % (0-3) Basophils (%) (Auto) 0 % (0-3) Neutrophils # (Auto) 10.0 x10^3uL (1.8-7.7) Lymphocytes # (Auto) 0.8 x10^3/uL (1.0-4.8) Monocytes # (Auto) 1.1 x10^3/uL (0.0-1.1) Eosinophils # (Auto) 0.0 x10^3/uL (0.0-0.7) Basophils # (Auto) 0.0 x10^3/uL (0.0-0.2) Sodium Level 141 mmol/L (136-145) Potassium Level 3.3 mmol/L (3.5-5.1) Chloride Level 107 mmol/L (98-107) Carbon Dioxide Level 23 mmol/L (21-32) Anion Gap 11 (6-14) Blood Urea Nitrogen 16 mg/dL (8-26) Creatinine 0.7 mg/dL (0.7-1.3) Estimated GFR (Cockcroft-Gault) 113.5 Glucose Level 158 mg/dL (70-99) Calcium Level 8.3 mg/dL (8.5-10.1) Magnesium Level 1.8 mg/dL (1.8-2.4) Assessment and Plan Assessmemt and Plan Problems Medical Problems: (1) Alcohol withdrawal Status: Acute (2) Hepatic encephalopathy Status: Acute (3) Lactic acid acidosis Status: Acute (4) Respiratory failure Status: Acute Problems: Comment Review of Relevant I have reviewed the following items chikis (where applicable) has been applied. Labs Laboratory Tests Test 08/12/16 03:35 08/13/16 05:00 Sodium Level 140 mmol/L (136-145) 141 mmol/L (136-145) Potassium Level 3.5 mmol/L (3.5-5.1) 3.3 mmol/L (3.5-5.1) Chloride Level 106 mmol/L (98-107) 107 mmol/L (98-107) Carbon Dioxide Level 24 mmol/L (21-32) 23 mmol/L (21-32) Anion Gap 10 (6-14) 11 (6-14) Blood Urea Nitrogen 16 mg/dL (8-26) 16 mg/dL (8-26) Creatinine 0.8 mg/dL (0.7-1.3) 0.7 mg/dL (0.7-1.3) Estimated GFR (Cockcroft-Gault) 97.3 113.5 Glucose Level 173 mg/dL (70-99) 158 mg/dL (70-99) Calcium Level 8.4 mg/dL (8.5-10.1) 8.3 mg/dL (8.5-10.1) Magnesium Level 1.7 mg/dL (1.8-2.4) 1.8 mg/dL (1.8-2.4) White Blood Count 11.9 x10^3/uL (4.0-11.0) Red Blood Count 3.96 x10^6/uL (4.30-5.70) Hemoglobin 12.9 g/dL (13.0-17.5) Hematocrit 38.5 % (39.0-53.0) Mean Corpuscular Volume 97 fL (79-100) Mean Corpuscular Hemoglobin 33 pg (25-35) Mean Corpuscular Hemoglobin Concent 34 g/dL (31-37) Red Cell Distribution Width 13.5 % (11.5-14.5) Platelet Count 161 x10^3/uL (140-400) Neutrophils (%) (Auto) 84 % (31-73) Lymphocytes (%) (Auto) 7 % (24-48) Monocytes (%) (Auto) 9 % (0-9) Eosinophils (%) (Auto) 0 % (0-3) Basophils (%) (Auto) 0 % (0-3) Neutrophils # (Auto) 10.0 x10^3uL (1.8-7.7) Lymphocytes # (Auto) 0.8 x10^3/uL (1.0-4.8) Monocytes # (Auto) 1.1 x10^3/uL (0.0-1.1) Eosinophils # (Auto) 0.0 x10^3/uL (0.0-0.7) Basophils # (Auto) 0.0 x10^3/uL (0.0-0.2) Laboratory Tests Test 08/13/16 05:00 White Blood Count 11.9 x10^3/uL (4.0-11.0) Red Blood Count 3.96 x10^6/uL (4.30-5.70) Hemoglobin 12.9 g/dL (13.0-17.5) Hematocrit 38.5 % (39.0-53.0) Mean Corpuscular Volume 97 fL (79-100) Mean Corpuscular Hemoglobin 33 pg (25-35) Mean Corpuscular Hemoglobin Concent 34 g/dL (31-37) Red Cell Distribution Width 13.5 % (11.5-14.5) Platelet Count 161 x10^3/uL (140-400) Neutrophils (%) (Auto) 84 % (31-73) Lymphocytes (%) (Auto) 7 % (24-48) Monocytes (%) (Auto) 9 % (0-9) Eosinophils (%) (Auto) 0 % (0-3) Basophils (%) (Auto) 0 % (0-3) Neutrophils # (Auto) 10.0 x10^3uL (1.8-7.7) Lymphocytes # (Auto) 0.8 x10^3/uL (1.0-4.8) Monocytes # (Auto) 1.1 x10^3/uL (0.0-1.1) Eosinophils # (Auto) 0.0 x10^3/uL (0.0-0.7) Basophils # (Auto) 0.0 x10^3/uL (0.0-0.2) Sodium Level 141 mmol/L (136-145) Potassium Level 3.3 mmol/L (3.5-5.1) Chloride Level 107 mmol/L (98-107) Carbon Dioxide Level 23 mmol/L (21-32) Anion Gap 11 (6-14) Blood Urea Nitrogen 16 mg/dL (8-26) Creatinine 0.7 mg/dL (0.7-1.3) Estimated GFR (Cockcroft-Gault) 113.5 Glucose Level 158 mg/dL (70-99) Calcium Level 8.3 mg/dL (8.5-10.1) Magnesium Level 1.8 mg/dL (1.8-2.4) Microbiology 08/11/16 Blood Culture - Preliminary, Resulted NO GROWTH AFTER 2 DAYS Medications Current Medications Diltiazem HCl (Cardizem) 25 mg STK-MED ONCE .ROUTE ; Start 08/08/16 at 10:37; Stop 08/08/16 at 10:38; Status DC Diltiazem HCl 125 mg/Dextrose 125 ml @ 0 mls/hr CONT PRN IV SEE I/O RECORD Last administered on 08/12/16 06:20; Start 08/08/16 at 11:00; Stop 08/12/16 at 12:30; Status DC Diltiazem HCl (Cardizem) 20 mg 1X ONCE IVP Last administered on 08/08/16 10: 40; Start 08/08/16 at 11:00; Stop 08/08/16 at 11:01; Status DC Lorazepam (Ativan) 2 mg STK-MED ONCE .ROUTE ; Start 08/08/16 at 10:55; Stop 01/14 at 10:56; Status DC Iohexol (Omnipaque 350 Mg/ml) 90 ml 1X ONCE IV Last administered on 08/08/16 11:15; Start 08/08/16 at 11:15; Stop 08/08/16 at 11:16; Status DC Propofol 20 ml @ 0 mls/hr 1X ONCE IV Last administered on 08/08/16 11:20; Start 08/08/16 at 11:15; Stop 08/08/16 at 11:16; Status DC Info (Do NOT chart on this entry -- for MONITORING) 1 each PRN DAILY PRN MC SEE COMMENTS; Start 08/08/16 at 11:15; Stop 08/10/16 at 09:37; Status DC Fentanyl Citrate (Fentanyl 2ml Vial) 100 mcg 1X ONCE IV Last administered on 11:03; Start 08/08/16 at 11:15; Stop 08/08/16 at 11:16; Status DC Fentanyl Citrate (Fentanyl 2ml Vial) 100 mcg 1X ONCE IV Last administered on 11:16; Start 08/08/16 at 11:15; Stop 08/08/16 at 11:16; Status DC Propofol 50 ml @ As Directed STK-MED ONCE IV ; Start 08/08/16 at 11:17; Stop 01/14 at 11:18; Status DC Ondansetron HCl (Zofran) 4 mg PRN Q8HRS PRN IV NAUSEA/VOMITING; Start 08/08/16 at 11:30; Stop 08/09/16 at 11:29; Status DC Fentanyl Citrate (Fentanyl 2ml Vial) 50 mcg PRN Q2HR PRN IV PAIN Last administered on 08/08/16 13:16; Start 08/08/16 at 11:30; Stop 08/09/16 at 11:29 ; Status DC Levetiracetam 1000 mg/Sodium Chloride 110 ml @ 440 mls/hr 1X ONCE IV Last administered on 08/08/16 11:39; Start 08/08/16 at 11:45; Stop 08/08/16 at 11:59 ; Status DC Fentanyl Citrate (Fentanyl 2ml Vial) 100 mcg 1X ONCE IV ; Start 08/08/16 at 11: 45; Stop 08/08/16 at 11:46; Status DC Propofol 50 ml @ As Directed STK-MED ONCE IV ; Start 08/08/16 at 12:09; Stop 01/14 at 12:10; Status DC Lorazepam (Ativan) 2 mg 1X ONCE IV ; Start 08/08/16 at 13:00; Stop 08/08/16 at 13:01; Status DC Succinylcholine Chloride (Anectine) 100 mg 1X ONCE IV ; Start 08/08/16 at 13:00 ; Stop 08/08/16 at 13:01; Status DC Etomidate (Amidate) 20 mg 1X ONCE IV ; Start 08/08/16 at 13:00; Stop 08/08/16 at 13:01; Status DC Propofol 100 ml @ 0 mls/hr CONT PRN IV PER PROTOCOL Last administered on 09:08; Start 08/08/16 at 13:45; Stop 08/11/16 at 10:11; Status DC Fentanyl Citrate (Fentanyl 2ml Vial) 50 mcg PRN Q1HR PRN IV COMM; Start at 13:45 Chlorhexidine Gluconate (Peridex) 15 ml BID MM Last administered on 08/09/16 09:08; Start 08/08/16 at 21:00; Stop 08/10/16 at 08:29; Status DC Ipratropium [place] (Atrovent) 0.5 mg RTQID NEB Last administered on 08/13/16 07:57; Start 08/08/16 at 16:00 Metoprolol Tartrate (Lopressor) 12.5 mg BID PO Last administered on 08/08/16 21:51; Start 08/08/16 at 14:30; Stop 08/10/16 at 09:48; Status DC Lorazepam (Ativan) 1 mg PRN Q4HRS PRN IV ANXIETY / AGITATION Last administered on 08/13/16 10:19; Start 08/08/16 at 14:45 Levetiracetam (Keppra) 500 mg Q12HR PO Last administered on 08/13/16 10:01; Start 08/08/16 at 21:00 Multivitamins 10 ml/Folic Acid 1 mg/Thiamine HCl 100 mg/Sodium Chloride 1,011.2 ml @ 100 mls/ hr Q24H IV Last administered on 08/12/16 17:50; Start 08/08/16 at 16:00 Lorazepam (Ativan) 2 mg PRN Q4HRS PRN IV ANXIETY / AGITATION Last administered on 08/10/16 11:11; Start 08/08/16 at 15:15; Stop 08/13/16 at 11:08; Status DC Aspirin (Zunilda Aspirin) 325 mg DAILY PO Last administered on 08/09/16 09:09; Start 08/09/16 at 09:00; Stop 08/10/16 at 09:48; Status DC Diltiazem HCl (Cardizem 24hr Cd) 240 mg DAILY PO ; Start 08/09/16 at 09:00; Stop 08/10/16 at 09:48; Status DC Lactulose 20 gm Q48H PO Last administered on 08/09/16 09:13; Start 08/09/16 at 09:00; Stop 08/09/16 at 16:32; Status DC Pantoprazole Sodium (Protonix) 40 mg DAILYAC PO ; Start 08/09/16 at 07:30; Stop 08/09/16 at 09:36; Status DC Non-Formulary Medication 100 mg DAILY PO Last administered on 08/13/16 10:02; Start 08/09/16 at 09:00; Stop 08/13/16 at 11:09; Status UNV Pantoprazole Sodium (Protonix Vial) 40 mg DAILYAC IVP Last administered on 08/13 10:16; Start 08/09/16 at 10:00 Iohexol (Omnipaque 300 Mg/ml) 75 ml 1X ONCE IV ; Start 08/09/16 at 14:00; Stop 08/09/16 at 14:01; Status DC Info (Do NOT chart on this entry -- for MONITORING) 1 each PRN DAILY PRN MC SEE COMMENTS; Start 08/09/16 at 14:00; Stop 08/11/16 at 13:59; Status DC Lactulose 20 gm BID PO Last administered on 08/11/16 10:27; Start 08/09/16 at 21:00; Stop 08/11/16 at 10:52; Status DC Lorazepam (Ativan) 2 mg PRN Q1HR PRN IV For CIWA 8-14 Last administered on 08/12 23:50; Start 08/09/16 at 20:45 Lorazepam (Ativan) 4 mg PRN Q1HR PRN IV For CIWA 15 or greater Last administered on 08/10/16 06:55; Start 08/09/16 at 20:45 Haloperidol Lactate (Haldol) 5 mg PRN Q4HRS PRN IVP Hallucinatns,Confusn, Delirium Last administered on 08/10/16 12:29; Start 08/09/16 at 20:45; Stop at 10:11; Status DC Metoprolol Tartrate (Lopressor) 5 mg PRN Q4HRS PRN IVP ELEVATED BP, SEE COMMENTS Last administered on 08/10/16 02:49; Start 08/09/16 at 22:15; Stop at 09:48; Status DC Diltiazem HCl (Cardizem) 5 mg 1X ONCE IVP Last administered on 08/10/16 08:22 ; Start 08/10/16 at 08:15; Stop 08/10/16 at 08:16; Status DC Metoprolol Tartrate (Lopressor) 5 mg Q6HRS PRN IVP ELEVATED BP, SEE COMMENTS; Start 08/10/16 at 09:45; Stop 08/10/16 at 10:05; Status DC Aspirin (Aspirin) 300 mg DAILY OH Last administered on 08/12/16 08:21; Start 08/10/16 at 09:45; Stop 08/12/16 at 11:14; Status DC Magnesium Sulfate/ Dextrose 50 ml @ 25 mls/hr 1X ONCE IV Last administered on 08/10/16 10:56; Start 08/10/16 at 10:00; Stop 08/10/16 at 11:59; Status DC Metoprolol Tartrate (Lopressor) 5 mg Q6HRS IVP Last administered on 08/12/16 05:00; Start 08/10/16 at 10:15; Stop 08/12/16 at 11:14; Status DC Enoxaparin Sodium (Lovenox 30mg Syringe) 30 mg Q24H SQ ; Start 08/10/16 at 15:00 ; Stop 08/10/16 at 15:00; Status DC Enoxaparin Sodium (Lovenox 40mg Syringe) 40 mg Q24H SQ Last administered on 15:57; Start 08/10/16 at 15:00 Acetaminophen (Tylenol) 650 mg PRN Q6HRS PRN PEG MILD PAIN / TEMP Last administered on 08/12/16 12:27; Start 08/10/16 at 23:45 Succinylcholine Chloride (Anectine) 200 mg STK-MED ONCE .ROUTE ; Start 08/11/16 at 01:30; Stop 08/11/16 at 01:31; Status DC Succinylcholine Chloride (Anectine) 200 mg STK-MED ONCE .ROUTE ; Start 08/11/16 at 01:30; Stop 08/11/16 at 08:48; Status DC Haloperidol Lactate (Haldol) 2.5 mg PRN Q4HRS PRN IVP Hallucinatns,Confusn, Delirium; Start 08/11/16 at 10:15 Potassium Chloride (KCl Oral Soln) 40 meq 1X ONCE PEG Last administered on 10:30; Start 08/11/16 at 10:30; Stop 08/11/16 at 10:31; Status DC Potassium Chloride (KCl Oral Soln) 40 meq 1X ONCE PEG Last administered on 16:00; Start 08/11/16 at 15:00; Stop 08/11/16 at 15:01; Status DC Digoxin (Lanoxin) 500 mcg 1X ONCE IV Last administered on 08/11/16 10:30; Start 08/11/16 at 10:30; Stop 08/11/16 at 10:31; Status DC Lactulose 20 gm QD PO Last administered on 08/13/16 10:00; Start 08/12/16 at 09:00 Phenylephrine HCl 20 mg/Sodium Chloride 252 ml @ 0 mls/hr 1X ONCE IV ; Start at 14:30; Stop 08/11/16 at 14:31; Status Cancel Magnesium Sulfate/ Dextrose 50 ml @ 25 mls/hr 1X ONCE IV Last administered on 08/12/16 09:32; Start 08/12/16 at 09:00; Stop 08/12/16 at 10:59; Status DC Magnesium Sulfate/ Dextrose 50 ml @ 25 mls/hr 1X ONCE IV Last administered on 08/12/16 17:56; Start 08/12/16 at 16:00; Stop 08/12/16 at 17:59; Status DC Potassium Chloride (KCl Oral Soln) 20 meq BID PEG Last administered on 21:52; Start 08/12/16 at 11:15; Stop 08/13/16 at 09:46; Status DC Diltiazem HCl (Cardizem) 60 mg Q6HRS PO Last administered on 08/13/16 06:06; Start 08/12/16 at 11:30 Metoprolol Tartrate (Lopressor) 25 mg BID FT Last administered on 08/12/16 21: 53; Start 08/12/16 at 21:00; Stop 08/13/16 at 09:46; Status DC Aspirin (TableApp Aspirin) 325 mg DAILYWBKFT FT Last administered on 08/13/16 10: 02; Start 08/13/16 at 08:00 Ceftriaxone Sodium 1 gm/ Sodium Chloride 50 ml @ 100 mls/hr Q24H IV Last administered on 08/12/16 17:52; Start 08/12/16 at 17:00 Metoprolol Tartrate (Lopressor) 50 mg BID FT Last administered on 08/13/16 10: 03; Start 08/13/16 at 10:00 Potassium Chloride (KCl Oral Soln) 20 meq TID PEG Last administered on 10:01; Start 08/13/16 at 10:00 Magnesium Sulfate/ Dextrose 50 ml @ 25 mls/hr 1X ONCE IV ; Start 08/13/16 at 10 :00; Stop 08/13/16 at 11:59 Active Scripts Active Lactulose 20 Gm/30 Ml Solution 20 Gm PO QODAY Ativan (Lorazepam) 0.5 Mg Tablet 0.5 Mg PO BID Diltiazem 24HR Cd (Diltiazem Hcl) 240 Mg Cap.er.24h 240 Mg PO DAILY Vitamin B-1 (Thiamine Hcl) 100 Mg Tablet 100 Mg PO DAILY [place] 5-325 Tablet (Acetaminophen/Hydrocodone Bitart) 1 Each Tablet 1 Tab PO PRN Q6HRS PRN Reported Omeprazole 20 Mg Capsule.dr 20 Mg PO DAILY Zofran Odt (Ondansetron) 8 Mg Tab.rapdis 1 Tab PO PRN Q8HRS PRN [place] 4.2-0.7 mg Film (Buprenorphine HCl/Naloxone HCl) 1 Each Film 1 Each BC DAILY Vitals/I & O Vital Sign - Last 24 Hours 08/12/16 08/12/16 08/12/16 08/12/16 12:00 12:21 12:29 16:00 Temp 98.7 99.6 98.7 99.6 Pulse 92 102 100 Resp 26 20 B/P (MAP) 125/78 (94) 125/78 125/82 (96) Pulse Ox 96 95 O2 Delivery Nasal Cannula Nasal Cannula O2 Flow Rate 3.0 3.0 08/12/16 08/12/16 08/12/16 08/12/16 18:31 19:05 19:40 20:05 Temp 98.1 98.1 Pulse 100 99 Resp 22 B/P (MAP) 125/82 138/93 (108) Pulse Ox 94 96 O2 Delivery Nasal Cannula Nasal Cannula Nasal Cannula O2 Flow Rate 3.0 3.0 08/12/16 08/12/16 08/12/16 08/13/16 21:53 23:05 23:50 03:05 Temp 97.4 98.1 97.4 98.1 Pulse 120 102 108 101 Resp 22 24 B/P (MAP) 138/93 135/98 (110) 135/98 163/96 (118) Pulse Ox 97 97 O2 Delivery Nasal Cannula O2 Flow Rate 3.0 3.0 08/13/16 08/13/16 08/13/16 08/13/16 06:06 07:05 07:57 08:00 Temp 98.2 98.2 Pulse 101 103 Resp 24 B/P (MAP) 163/96 143/90 (107) Pulse Ox 99 O2 Delivery Nasal Cannula Nasal Cannula O2 Flow Rate 3.0 3.0 3.0 08/13/16 08/13/16 10:03 10:55 Temp 99.4 99.4 Pulse 103 74 Resp 24 B/P (MAP) 143/90 121/87 (98) Pulse Ox 100 O2 Flow Rate 3.0 Intake and Output 08/12/16 08/12/16 08/13/16 15:00 23:00 07:00 Intake Total 770 ml 1630 ml Output Total 750 ml 1250 ml Balance 20 ml 380 ml Nutrition Consultation Dietary Evaluation: Recommendations by RD: Increase Calorie Intake Comments: Rec. continue the TF's until able to pass speech evaluation Fibersource HN, goal rate 55 ml/hr start at 25 ml/hr, increase by 25 ml/hr q8h to goal rate flushes 140 cc q6h if no IVF's running Expected Outcomes/Goals: tolerate TF's at goal rate - met no further wt loss while in the hospital - met Malnutrition Findings: Food and Nutrition Intake (Mod: <75% est energy req 7days Reduced Piling Cutter Strength: N/A Reduced Piling Cutter Strength (Non-Sev: N/A Malnutrition related to morbid: No Weight Status: Underweight Fluid Accumulation (N/A): N/A JOAN GARDINER MD Aug 13, 2016 11:15
--- NOTE | 2016-08-13 13:09 | PDOC ---
PULMONARY PROGRESS NOTES Subjective extubated 08/09 confused Vitals Vital Signs Date Time Temp Pulse Resp B/P (MAP) Pulse Ox O2 Delivery O2 Flow Rate FiO2 08/13/16 12:47 74 121/87 08/13/16 11:12 100 Nasal Cannula 3.0 08/13/16 10:55 99.4 24 99.4 Lungs: Other (decrease bs) Cardiovascular: S1 Abdomen: Soft Extremities: No Edema Skin: Warm Labs Laboratory Tests Test 08/12/16 03:35 08/13/16 05:00 Sodium Level 140 mmol/L (136-145) 141 mmol/L (136-145) Potassium Level 3.5 mmol/L (3.5-5.1) 3.3 mmol/L (3.5-5.1) Chloride Level 106 mmol/L (98-107) 107 mmol/L (98-107) Carbon Dioxide Level 24 mmol/L (21-32) 23 mmol/L (21-32) Anion Gap 10 (6-14) 11 (6-14) Blood Urea Nitrogen 16 mg/dL (8-26) 16 mg/dL (8-26) Creatinine 0.8 mg/dL (0.7-1.3) 0.7 mg/dL (0.7-1.3) Estimated GFR (Cockcroft-Gault) 97.3 113.5 Glucose Level 173 mg/dL (70-99) 158 mg/dL (70-99) Calcium Level 8.4 mg/dL (8.5-10.1) 8.3 mg/dL (8.5-10.1) Magnesium Level 1.7 mg/dL (1.8-2.4) 1.8 mg/dL (1.8-2.4) White Blood Count 11.9 x10^3/uL (4.0-11.0) Red Blood Count 3.96 x10^6/uL (4.30-5.70) Hemoglobin 12.9 g/dL (13.0-17.5) Hematocrit 38.5 % (39.0-53.0) Mean Corpuscular Volume 97 fL (79-100) Mean Corpuscular Hemoglobin 33 pg (25-35) Mean Corpuscular Hemoglobin Concent 34 g/dL (31-37) Red Cell Distribution Width 13.5 % (11.5-14.5) Platelet Count 161 x10^3/uL (140-400) Neutrophils (%) (Auto) 84 % (31-73) Lymphocytes (%) (Auto) 7 % (24-48) Monocytes (%) (Auto) 9 % (0-9) Eosinophils (%) (Auto) 0 % (0-3) Basophils (%) (Auto) 0 % (0-3) Neutrophils # (Auto) 10.0 x10^3uL (1.8-7.7) Lymphocytes # (Auto) 0.8 x10^3/uL (1.0-4.8) Monocytes # (Auto) 1.1 x10^3/uL (0.0-1.1) Eosinophils # (Auto) 0.0 x10^3/uL (0.0-0.7) Basophils # (Auto) 0.0 x10^3/uL (0.0-0.2) Laboratory Tests Test 08/13/16 05:00 White Blood Count 11.9 x10^3/uL (4.0-11.0) Red Blood Count 3.96 x10^6/uL (4.30-5.70) Hemoglobin 12.9 g/dL (13.0-17.5) Hematocrit 38.5 % (39.0-53.0) Mean Corpuscular Volume 97 fL (79-100) Mean Corpuscular Hemoglobin 33 pg (25-35) Mean Corpuscular Hemoglobin Concent 34 g/dL (31-37) Red Cell Distribution Width 13.5 % (11.5-14.5) Platelet Count 161 x10^3/uL (140-400) Neutrophils (%) (Auto) 84 % (31-73) Lymphocytes (%) (Auto) 7 % (24-48) Monocytes (%) (Auto) 9 % (0-9) Eosinophils (%) (Auto) 0 % (0-3) Basophils (%) (Auto) 0 % (0-3) Neutrophils # (Auto) 10.0 x10^3uL (1.8-7.7) Lymphocytes # (Auto) 0.8 x10^3/uL (1.0-4.8) Monocytes # (Auto) 1.1 x10^3/uL (0.0-1.1) Eosinophils # (Auto) 0.0 x10^3/uL (0.0-0.7) Basophils # (Auto) 0.0 x10^3/uL (0.0-0.2) Sodium Level 141 mmol/L (136-145) Potassium Level 3.3 mmol/L (3.5-5.1) Chloride Level 107 mmol/L (98-107) Carbon Dioxide Level 23 mmol/L (21-32) Anion Gap 11 (6-14) Blood Urea Nitrogen 16 mg/dL (8-26) Creatinine 0.7 mg/dL (0.7-1.3) Estimated GFR (Cockcroft-Gault) 113.5 Glucose Level 158 mg/dL (70-99) Calcium Level 8.3 mg/dL (8.5-10.1) Magnesium Level 1.8 mg/dL (1.8-2.4) Medications Active Scripts Medications Dose Route/Sig Max Daily Dose Days Date Category Lactulose 20 Gm/30 Ml Solution 20 Gm PO QODAY 02/03/16 Rx Ativan (Lorazepam) 0.5 Mg Tablet 0.5 Mg PO BID 02/03/16 Rx Diltiazem 24HR Cd (Diltiazem Hcl) 240 Mg Cap.er.24h 240 Mg PO DAILY 02/03/16 Rx Vitamin B-1 (Thiamine Hcl) 100 Mg Tablet 100 Mg PO DAILY 02/03/16 Rx Omeprazole 20 Mg Capsule.dr 20 Mg PO DAILY 01/31/16 Reported Zofran Odt (Ondansetron) 8 Mg Tab.rapdis 1 Tab PO PRN Q8HRS PRN 01/31/16 Reported [place] 4.2-0.7 mg Film (Buprenorphine HCl/Naloxone HCl) 1 Each Film 1 Each BC DAILY 01/31/16 Reported [place] 5-325 Tablet (Acetaminophen/Hydrocodone Bitart) 1 Each Tablet 1 Tab PO PRN Q6HRS PRN 12/01/15 Rx Impression . 1. Acute respiratory failure secondary to seizures. extubated 08/09 2. Status epilepticus. 3. Positive drug screen for cannabinoids. 4. Lactic acidosis related to seizures. 5. Hepatitis. 6. encephalopathy, due to above 7. Fever, improved.repeat CXR 08/12 with mild infra hilar atelectasis Plan . 1. Nasal canula 2. Follow Neurology input. 3. CT chest for pulmonary embolism revealed a 7 mm bullae in LLL 4. EEG done 5 NPO 6. antibiotics D/W family YOVANY AMBROSIO MD Aug 13, 2016 13:08
--- NOTE | 2016-08-13 14:00 | PDOC ---
PROGRESS NOTES Assessment Assessment Seizure x 2 on 08/08/16, alcohol related. Metabolic encephalopathy. Toxic encephalopathy. Respiratory failure. Tiny right frontal and parietal junction infract. Alcoholic. Lactic acidosis. HCV Cannabinoids positive. RECOMMENDATIONS/PLAN: Alcohol detoxication protocol. Continue Keppra 500 mg bid, will stop after a few weeks. Continue ASA 300 mg Rectal daily. Treat medical diseases. EEG on 08/10/16 showed diffuse encephalopathy. Brain MRI: Tiny infract in right frontal and parietal junction. PAST MEDICAL HISTORY: Hep C cirrhosis, alcoholism, chronic nausea, vomiting, abdominal pain and narcotic addiction. FAMILY HISTORY: Unknown. SOCIAL HISTORY: Lives with his . Heavy alcohol 8-10 beers and wine a day x 40 years. Smoking 2 packs a day x 40 years. Marijuana use. ALLERGIES: No known drug allergies. REVIEW OF SYSTEMS: Constitutional: Mild malnutrition. Head: No recent traumatic brain or head injury. Skin: No edema, or rash. Ear: No infection, tinnitus. Eyes: No vision loss, or diplopia. Nose: No bleeding or purulent discharges. Hearing: No hearing decrease. Neck: No injury. Cardiac: No MS Pulmonary: No pneumonia. GI: No GI Ulcer, GI bleeding Urinary/genital: No dysuria, hematuria, incontinence. Endocrine: No cousin face, craniofacial dysmorphism, polydactyly. Skeletomuscular: No muscular atrophy, deformity. Neurological: see HP. Psychiatric:Alcohol, smoking, marijuana. Otherwise, not [id number] review of systems. PHYSICAL EXAMINATION: General appearance in subacute distress. HEENT: Normocephalic and nontraumatic. Eyes, nose, ears, and throat are unremarkable. Neck is supple. No lymphadenopathy. No Crepitus. Cardiovascular: S1, S2, regular rate and rhythm. Pulmonary: relative clear to auscultation bilaterally. Abdomen: Bowel sounds are positive. Abdomen is soft, nontender, and nondistended. Extremities: No rash, lesions, or edema. No restriction of range of motion NEUROLOGICAL EXAMINATION: Awake. Not oriented to time, place but knows person. PERRL. EOMI. CN: no focal findings. Muscle tone: within normal. Muscle strength: moves all extremities to pain stimuli. DTR: 1-2 Plantar reflex: Neutral response bilaterally Gait: unable to walk. Sensory exam: No acute deficits found. Not able to access cerebellar signs due to not follow commands. Objective Objective Vital Signs Date Time Temp Pulse Resp B/P (MAP) Pulse Ox O2 Delivery O2 Flow Rate FiO2 08/13/16 12:47 74 121/87 08/13/16 11:12 100 Nasal Cannula 3.0 08/13/16 10:55 99.4 24 99.4 Intake and Output 08/13/16 07:00 Intake Total 2400 ml Output Total 2000 ml Balance 400 ml IV Total 1380 ml Tube Feeding 570 ml Other 450 ml Output Urine Total 2000 ml Gastric Drainage Total 0 ml # Bowel Movements 1 Vitals Signs Vitals VS - Last 72 Hours, by Label Date Time Temp Pulse Resp B/P (MAP) Pulse Ox O2 Delivery O2 Flow Rate FiO2 08/13/16 12:47 74 121/87 08/13/16 11:12 100 Nasal Cannula 3.0 08/13/16 10:55 99.4 74 24 121/87 (98) 100 3.0 99.4 08/13/16 10:03 103 143/90 08/13/16 08:00 Nasal Cannula 3.0 08/13/16 07:57 Nasal Cannula 3.0 08/13/16 07:05 98.2 103 24 143/90 (107) 99 3.0 98.2 08/13/16 06:06 101 163/96 08/13/16 03:05 98.1 101 24 163/96 (118) 97 3.0 98.1 08/12/16 23:50 108 135/98 08/12/16 23:05 97.4 102 22 135/98 (110) 97 Nasal Cannula 3.0 97.4 08/12/16 21:53 120 138/93 08/12/16 20:05 96 Nasal Cannula 3.0 08/12/16 19:40 Nasal Cannula 3.0 08/12/16 19:05 98.1 99 22 138/93 (108) 94 Nasal Cannula 98.1 08/12/16 18:31 100 125/82 08/12/16 16:00 99.6 100 20 125/82 (96) 99.6 08/12/16 12:29 102 125/78 08/12/16 12:21 95 Nasal Cannula 3.0 08/12/16 12:00 98.7 92 26 125/78 (94) 96 Nasal Cannula 3.0 98.7 08/12/16 11:00 97 24 135/91 (106) 96 Nasal Cannula 3.0 08/12/16 10:00 98 30 131/88 (102) 96 Nasal Cannula 3.0 08/12/16 09:00 95 20 134/75 (94) 97 Nasal Cannula 3.0 08/12/16 08:45 97 Nasal Cannula 3.0 08/12/16 08:00 99.3 90 26 131/77 (95) 97 Nasal Cannula 3.0 99.3 08/12/16 08:00 Nasal Cannula 3.0 08/12/16 07:00 86 30 106/75 (85) 97 Nasal Cannula 3.0 Laboratory Laboratory Laboratory Tests Test 08/13/16 05:00 White Blood Count 11.9 x10^3/uL (4.0-11.0) Red Blood Count 3.96 x10^6/uL (4.30-5.70) Hemoglobin 12.9 g/dL (13.0-17.5) Hematocrit 38.5 % (39.0-53.0) Mean Corpuscular Volume 97 fL (79-100) Mean Corpuscular Hemoglobin 33 pg (25-35) Mean Corpuscular Hemoglobin Concent 34 g/dL (31-37) Red Cell Distribution Width 13.5 % (11.5-14.5) Platelet Count 161 x10^3/uL (140-400) Neutrophils (%) (Auto) 84 % (31-73) Lymphocytes (%) (Auto) 7 % (24-48) Monocytes (%) (Auto) 9 % (0-9) Eosinophils (%) (Auto) 0 % (0-3) Basophils (%) (Auto) 0 % (0-3) Neutrophils # (Auto) 10.0 x10^3uL (1.8-7.7) Lymphocytes # (Auto) 0.8 x10^3/uL (1.0-4.8) Monocytes # (Auto) 1.1 x10^3/uL (0.0-1.1) Eosinophils # (Auto) 0.0 x10^3/uL (0.0-0.7) Basophils # (Auto) 0.0 x10^3/uL (0.0-0.2) Sodium Level 141 mmol/L (136-145) Potassium Level 3.3 mmol/L (3.5-5.1) Chloride Level 107 mmol/L (98-107) Carbon Dioxide Level 23 mmol/L (21-32) Anion Gap 11 (6-14) Blood Urea Nitrogen 16 mg/dL (8-26) Creatinine 0.7 mg/dL (0.7-1.3) Estimated GFR (Cockcroft-Gault) 113.5 Glucose Level 158 mg/dL (70-99) Calcium Level 8.3 mg/dL (8.5-10.1) Magnesium Level 1.8 mg/dL (1.8-2.4) Microbiology 08/11/16 Blood Culture - Preliminary, Resulted NO GROWTH AFTER 2 DAYS Medication Medications Current Medications Aspirin (Ocean Lithotripsy Aspirin) 325 mg [id number] FT Last administered on 08/13/16 10: 02; Start 08/13/16 at 08:00 Ceftriaxone Sodium 1 gm/ Sodium Chloride 50 ml @ 100 mls/hr Q24H IV Last administered on 08/12/16 17:52; Start 08/12/16 at 17:00 Magnesium Sulfate/ Dextrose 50 ml @ 25 mls/hr 1X ONCE IV Last administered on 08/12/16 17:56; Start 08/12/16 at 16:00; Stop 08/12/16 at 17:59; Status DC Magnesium Sulfate/ Dextrose 50 ml @ 25 mls/hr 1X ONCE IV Last administered on 08/13/16 11:26; Start 08/13/16 at 10:00; Stop 08/13/16 at 11:59; Status DC Metoprolol Tartrate (Lopressor) 25 mg BID FT Last administered on 08/12/16 21: 53; Start 08/12/16 at 21:00; Stop 08/13/16 at 09:46; Status DC Metoprolol Tartrate (Lopressor) 50 mg BID FT Last administered on 08/13/16 10: 03; Start 08/13/16 at 10:00 Potassium Chloride (KCl Oral Soln) 20 meq TID PEG Last administered on 10:01; Start 08/13/16 at 10:00 Comment Review of Relevant I have reviewed the following items chikis (where applicable) has been applied. ADONIS HUITRON MD Aug 13, 2016 14:00
[2016-08-13 14:50] VITALS: BP 107/72
--- NOTE | 2016-08-13 14:57 | PDOC ---
Objective: Objective: D/w RN - more alert today, no GI complaints. Vital Signs: Vital Signs Date Time Temp Pulse Resp B/P (MAP) Pulse Ox O2 Delivery O2 Flow Rate FiO2 08/13/16 12:47 74 121/87 08/13/16 11:12 100 Nasal Cannula 3.0 08/13/16 10:55 99.4 24 99.4 Labs: Laboratory Tests Test 08/13/16 05:00 White Blood Count 11.9 x10^3/uL Red Blood Count 3.96 x10^6/uL Hemoglobin 12.9 g/dL Hematocrit 38.5 % Mean Corpuscular Volume 97 fL Mean Corpuscular Hemoglobin 33 pg Mean Corpuscular Hemoglobin Concent 34 g/dL Red Cell Distribution Width 13.5 % Platelet Count 161 x10^3/uL Neutrophils (%) (Auto) 84 % Lymphocytes (%) (Auto) 7 % Monocytes (%) (Auto) 9 % Eosinophils (%) (Auto) 0 % Basophils (%) (Auto) 0 % Neutrophils # (Auto) 10.0 x10^3uL Lymphocytes # (Auto) 0.8 x10^3/uL Monocytes # (Auto) 1.1 x10^3/uL Eosinophils # (Auto) 0.0 x10^3/uL Basophils # (Auto) 0.0 x10^3/uL Sodium Level 141 mmol/L Potassium Level 3.3 mmol/L Chloride Level 107 mmol/L Carbon Dioxide Level 23 mmol/L Anion Gap 11 Blood Urea Nitrogen 16 mg/dL Creatinine 0.7 mg/dL Estimated GFR (Cockcroft-Gault) 113.5 Glucose Level 158 mg/dL Calcium Level 8.3 mg/dL Magnesium Level 1.8 mg/dL PE: GEN: NAD, up to chair LUNGS: nasal cannula HEART: irreg ABD: S/ND/NT NEURO/PSYCH: asleep, did not awaken A/P: Seizure, encephalopathy, A Fib, resp failure Alcoholism, Hep C, hyperammonemia (resolved) -CT w/ fatty liver -on lactulose, PPI -on tube feeds w/ failed swallow -- Mental status improving. Continue same per GI. CHEN LAURENT Aug 13, 2016 14:57 STEPHY PIERRE MD Aug 13, 2016 15:05
[2016-08-13] MEDS: ENOXAPARIN 40 MG/0.4 ML SYRINGE. SQ SCH (15:42)
[2016-08-13] MEDS: MULTIVIT INFUSN,ADULT 4,VIT K 10 ML, FOLIC ACID 1 MG, THIAMINE 100 MG in IV NORMAL SALI... IV SCH (17:33)
[2016-08-13 19:00] VITALS: BP 124/77
[2016-08-13] MEDS: ACETAMINOPHEN 650 MG/20.3 ML SOLUTION. PEG PRN (21:27)
[2016-08-13 23:00] VITALS: BP 122/68
[2016-08-14] MEDS: ACETAMINOPHEN 650 MG/20.3 ML SOLUTION. PEG PRN (02:48)
[2016-08-14] MEDS: dilTIAZem HCL 30 MG TABLET PO SCH ×5 (02:50→23:19)
[2016-08-14 03:00] VITALS: BP 149/87
[2016-08-14 07:00] VITALS: BP 144/78
[2016-08-14] MEDS: IPRATROPIUM BROMIDE 0.5 MG/2.5 ML NEBU. NEB SCH ×4 (07:20→20:27)
[2016-08-14] MEDS: levETIRAcetam 500 MG TABLET PO SCH ×2 (09:49→21:04)
[2016-08-14] MEDS: METOPROLOL TART IMMED RELEASE 25 MG TABLET. FT SCH ×2 (09:49→21:05)
[2016-08-14] MEDS: POTASSIUM CHLORIDE 20 MEQ/15 ML ORAL LIQUID. PEG SCH ×3 (09:49→21:04)
[2016-08-14] MEDS: PANTOPRAZOLE IV PUSH 40 MG VIAL. IVP SCH (09:50)
[2016-08-14] MEDS: ASPIRIN 325 MG TABLET FT SCH (09:50)
[2016-08-14] MEDS: LACTULOSE 20 GM/30 ML SOLUTION. PO SCH (09:54)
--- NOTE | 2016-08-14 10:14 | PDOC ---
PULMONARY PROGRESS NOTES Subjective extubated 08/09 confused, doesnt answer my Qs Vitals Vital Signs Date Time Temp Pulse Resp B/P (MAP) Pulse Ox O2 Delivery O2 Flow Rate FiO2 08/14/16 09:49 75 144/78 08/14/16 07:20 Nasal Cannula 2.0 08/14/16 07:00 98.6 42 100 98.6 General: Confused HEENT: Other (nc at perrl, nose clear) Lungs: Other (decrease bs) Cardiovascular: S1, S2 Abdomen: Soft, Non-tender Extremities: No Edema Skin: Warm Labs Laboratory Tests Test 08/13/16 05:00 White Blood Count 11.9 x10^3/uL (4.0-11.0) Red Blood Count 3.96 x10^6/uL (4.30-5.70) Hemoglobin 12.9 g/dL (13.0-17.5) Hematocrit 38.5 % (39.0-53.0) Mean Corpuscular Volume 97 fL (79-100) Mean Corpuscular Hemoglobin 33 pg (25-35) Mean Corpuscular Hemoglobin Concent 34 g/dL (31-37) Red Cell Distribution Width 13.5 % (11.5-14.5) Platelet Count 161 x10^3/uL (140-400) Neutrophils (%) (Auto) 84 % (31-73) Lymphocytes (%) (Auto) 7 % (24-48) Monocytes (%) (Auto) 9 % (0-9) Eosinophils (%) (Auto) 0 % (0-3) Basophils (%) (Auto) 0 % (0-3) Neutrophils # (Auto) 10.0 x10^3uL (1.8-7.7) Lymphocytes # (Auto) 0.8 x10^3/uL (1.0-4.8) Monocytes # (Auto) 1.1 x10^3/uL (0.0-1.1) Eosinophils # (Auto) 0.0 x10^3/uL (0.0-0.7) Basophils # (Auto) 0.0 x10^3/uL (0.0-0.2) Sodium Level 141 mmol/L (136-145) Potassium Level 3.3 mmol/L (3.5-5.1) Chloride Level 107 mmol/L (98-107) Carbon Dioxide Level 23 mmol/L (21-32) Anion Gap 11 (6-14) Blood Urea Nitrogen 16 mg/dL (8-26) Creatinine 0.7 mg/dL (0.7-1.3) Estimated GFR (Cockcroft-Gault) 113.5 Glucose Level 158 mg/dL (70-99) Calcium Level 8.3 mg/dL (8.5-10.1) Magnesium Level 1.8 mg/dL (1.8-2.4) Medications Active Scripts Medications Dose Route/Sig Max Daily Dose Days Date Category Lactulose 20 Gm/30 Ml Solution 20 Gm PO QODAY 02/03/16 Rx Ativan (Lorazepam) 0.5 Mg Tablet 0.5 Mg PO BID 02/03/16 Rx Diltiazem 24HR Cd (Diltiazem Hcl) 240 Mg Cap.er.24h 240 Mg PO DAILY 02/03/16 Rx Vitamin B-1 (Thiamine Hcl) 100 Mg Tablet 100 Mg PO DAILY 02/03/16 Rx Omeprazole 20 Mg Capsule.dr 20 Mg PO DAILY 01/31/16 Reported Zofran Odt (Ondansetron) 8 Mg Tab.rapdis 1 Tab PO PRN Q8HRS PRN 01/31/16 Reported [place] 4.2-0.7 mg Film (Buprenorphine HCl/Naloxone HCl) 1 Each Film 1 Each BC DAILY 01/31/16 Reported [place] 5-325 Tablet (Acetaminophen/Hydrocodone Bitart) 1 Each Tablet 1 Tab PO PRN Q6HRS PRN 12/01/15 Rx Impression . 1. Acute respiratory failure secondary to seizures. extubated 08/09 2. s/p Status epilepticus. 3. Positive drug screen for cannabinoids. 4. Lactic acidosis related to seizures. 5. Hepatitis. 6. encephalopathy, due to above 7. Fever, improved.repeat CXR 08/12 with mild infra hilar atelectasis Plan . 1. Nasal canula 2. Follow Neurology input. 3. CT chest for pulmonary embolism revealed a 7 mm bullae in LLL, need fu ct in 3 mo 4. EEG done 5 NPO 6. antibiotics D/W CHRISTINE Mathews MD Aug 14, 2016 10:14
[2016-08-14 11:00] VITALS: BP 149/72
--- NOTE | 2016-08-14 11:54 | PDOC ---
PROGRESS NOTES Chief Complaint Chief Complaint cc: seizure like activity A/P Acute hypoxic respiratory failure: Extubated 08/09, on NC Hepatic encephalopathy, persistent: Possible alcohol withdrawal seizures: on CIWA protocol Chronic alcoholism: fall precautions, Paroxysmal, Afib: on Cardizem, rate controlled. Prognosis guarded. 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 Hypokalemia: replaced, Hx hep C prognosis guarded, History of Present Illness History of Present Illness confused Vitals Vitals Vital Signs Date Time Temp Pulse Resp B/P (MAP) Pulse Ox O2 Delivery O2 Flow Rate FiO2 08/14/16 11:00 98.6 68 36 149/72 (97) 100 Nasal Cannula 3.0 98.6 Physical Exam General: No acute distress, Other (confused) Heart: Normal S1, Normal S2, No murmurs Lungs: Clear, Other (decrease bs) Abdomen: Normal bowel sounds Extremities: No edema, Normal pulses Skin: No rashes Assessment and Plan Assessmemt and Plan Problems Medical Problems: (1) Alcohol withdrawal Status: Acute (2) Hepatic encephalopathy Status: Acute (3) Lactic acid acidosis Status: Acute (4) Respiratory failure Status: Acute Problems: Comment Review of Relevant I have reviewed the following items chikis (where applicable) has been applied. Labs Laboratory Tests Test 08/13/16 05:00 White Blood Count 11.9 x10^3/uL (4.0-11.0) Red Blood Count 3.96 x10^6/uL (4.30-5.70) Hemoglobin 12.9 g/dL (13.0-17.5) Hematocrit 38.5 % (39.0-53.0) Mean Corpuscular Volume 97 fL (79-100) Mean Corpuscular Hemoglobin 33 pg (25-35) Mean Corpuscular Hemoglobin Concent 34 g/dL (31-37) Red Cell Distribution Width 13.5 % (11.5-14.5) Platelet Count 161 x10^3/uL (140-400) Neutrophils (%) (Auto) 84 % (31-73) Lymphocytes (%) (Auto) 7 % (24-48) Monocytes (%) (Auto) 9 % (0-9) Eosinophils (%) (Auto) 0 % (0-3) Basophils (%) (Auto) 0 % (0-3) Neutrophils # (Auto) 10.0 x10^3uL (1.8-7.7) Lymphocytes # (Auto) 0.8 x10^3/uL (1.0-4.8) Monocytes # (Auto) 1.1 x10^3/uL (0.0-1.1) Eosinophils # (Auto) 0.0 x10^3/uL (0.0-0.7) Basophils # (Auto) 0.0 x10^3/uL (0.0-0.2) Sodium Level 141 mmol/L (136-145) Potassium Level 3.3 mmol/L (3.5-5.1) Chloride Level 107 mmol/L (98-107) Carbon Dioxide Level 23 mmol/L (21-32) Anion Gap 11 (6-14) Blood Urea Nitrogen 16 mg/dL (8-26) Creatinine 0.7 mg/dL (0.7-1.3) Estimated GFR (Cockcroft-Gault) 113.5 Glucose Level 158 mg/dL (70-99) Calcium Level 8.3 mg/dL (8.5-10.1) Magnesium Level 1.8 mg/dL (1.8-2.4) Microbiology 08/11/16 Blood Culture - Preliminary, Resulted NO GROWTH AFTER 3 DAYS Medications Current Medications Diltiazem HCl (Cardizem) 25 mg STK-MED ONCE .ROUTE ; Start 08/08/16 at 10:37; Stop 08/08/16 at 10:38; Status DC Diltiazem HCl 125 mg/Dextrose 125 ml @ 0 mls/hr CONT PRN IV SEE I/O RECORD Last administered on 08/12/16 06:20; Start 08/08/16 at 11:00; Stop 08/12/16 at 12:30; Status DC Diltiazem HCl (Cardizem) 20 mg 1X ONCE IVP Last administered on 08/08/16 10: 40; Start 08/08/16 at 11:00; Stop 08/08/16 at 11:01; Status DC Lorazepam (Ativan) 2 mg STK-MED ONCE .ROUTE ; Start 08/08/16 at 10:55; Stop 01/14 at 10:56; Status DC Iohexol (Omnipaque 350 Mg/ml) 90 ml 1X ONCE IV Last administered on 6/11/17at 11:15; Start 08/08/16 at 11:15; Stop 08/08/16 at 11:16; Status DC Propofol 20 ml @ 0 mls/hr 1X ONCE IV Last administered on 08/08/16 11:20; Start 08/08/16 at 11:15; Stop 08/08/16 at 11:16; Status DC Info (Do NOT chart on this entry -- for MONITORING) 1 each PRN DAILY PRN MC SEE COMMENTS; Start 08/08/16 at 11:15; Stop 08/10/16 at 09:37; Status DC Fentanyl Citrate (Fentanyl 2ml Vial) 100 mcg 1X ONCE IV Last administered on 11:03; Start 08/08/16 at 11:15; Stop 08/08/16 at 11:16; Status DC Fentanyl Citrate (Fentanyl 2ml Vial) 100 mcg 1X ONCE IV Last administered on 11:16; Start 08/08/16 at 11:15; Stop 08/08/16 at 11:16; Status DC Propofol 50 ml @ As Directed STK-MED ONCE IV ; Start 08/08/16 at 11:17; Stop 01/14 at 11:18; Status DC Ondansetron HCl (Zofran) 4 mg PRN Q8HRS PRN IV NAUSEA/VOMITING; Start 08/08/16 at 11:30; Stop 08/09/16 at 11:29; Status DC Fentanyl Citrate (Fentanyl 2ml Vial) 50 mcg PRN Q2HR PRN IV PAIN Last administered on 08/08/16 13:16; Start 08/08/16 at 11:30; Stop 08/09/16 at 11:29 ; Status DC Levetiracetam 1000 mg/Sodium Chloride 110 ml @ 440 mls/hr 1X ONCE IV Last administered on 08/08/16 11:39; Start 08/08/16 at 11:45; Stop 08/08/16 at 11:59 ; Status DC Fentanyl Citrate (Fentanyl 2ml Vial) 100 mcg 1X ONCE IV ; Start 08/08/16 at 11: 45; Stop 08/08/16 at 11:46; Status DC Propofol 50 ml @ As Directed STK-MED ONCE IV ; Start 08/08/16 at 12:09; Stop 01/14 at 12:10; Status DC Lorazepam (Ativan) 2 mg 1X ONCE IV ; Start 08/08/16 at 13:00; Stop 08/08/16 at 13:01; Status DC Succinylcholine Chloride (Anectine) 100 mg 1X ONCE IV ; Start 08/08/16 at 13:00 ; Stop 08/08/16 at 13:01; Status DC Etomidate (Amidate) 20 mg 1X ONCE IV ; Start 08/08/16 at 13:00; Stop 08/08/16 at 13:01; Status DC Propofol 100 ml @ 0 mls/hr CONT PRN IV PER PROTOCOL Last administered on 09:08; Start 08/08/16 at 13:45; Stop 08/11/16 at 10:11; Status DC Fentanyl Citrate (Fentanyl 2ml Vial) 50 mcg PRN Q1HR PRN IV COMM; Start at 13:45 Chlorhexidine Gluconate (Peridex) 15 ml BID MM Last administered on 08/09/16 09:08; Start 08/08/16 at 21:00; Stop 08/10/16 at 08:29; Status DC Ipratropium [place] (Atrovent) 0.5 mg RTQID NEB Last administered on 08/14/16 07:20; Start 08/08/16 at 16:00 Metoprolol Tartrate (Lopressor) 12.5 mg BID PO Last administered on 08/08/16 21:51; Start 08/08/16 at 14:30; Stop 08/10/16 at 09:48; Status DC Lorazepam (Ativan) 1 mg PRN Q4HRS PRN IV ANXIETY / AGITATION Last administered on 08/13/16 10:19; Start 08/08/16 at 14:45 Levetiracetam (Keppra) 500 mg Q12HR PO Last administered on 08/14/16 09:49; Start 08/08/16 at 21:00 Multivitamins 10 ml/Folic Acid 1 mg/Thiamine HCl 100 mg/Sodium Chloride 1,011.2 ml @ 100 mls/ hr Q24H IV Last administered on 08/13/16 17:33; Start 08/08/16 at 16:00 Lorazepam (Ativan) 2 mg PRN Q4HRS PRN IV ANXIETY / AGITATION Last administered on 08/10/16 11:11; Start 08/08/16 at 15:15; Stop 08/13/16 at 11:08; Status DC Aspirin (Zunilda Aspirin) 325 mg DAILY PO Last administered on 08/09/16 09:09; Start 08/09/16 at 09:00; Stop 08/10/16 at 09:48; Status DC Diltiazem HCl (Cardizem 24hr Cd) 240 mg DAILY PO ; Start 08/09/16 at 09:00; Stop 08/10/16 at 09:48; Status DC Lactulose 20 gm Q48H PO Last administered on 08/09/16 09:13; Start 08/09/16 at 09:00; Stop 08/09/16 at 16:32; Status DC Pantoprazole Sodium (Protonix) 40 mg DAILYAC PO ; Start 08/09/16 at 07:30; Stop 08/09/16 at 09:36; Status DC Non-Formulary Medication 100 mg DAILY PO Last administered on 08/13/16 10:02; Start 08/09/16 at 09:00; Stop 08/13/16 at 11:09; Status UNV Pantoprazole Sodium (Protonix Vial) 40 mg DAILYAC IVP Last administered on 08/14 09:50; Start 08/09/16 at 10:00 Iohexol (Omnipaque 300 Mg/ml) 75 ml 1X ONCE IV ; Start 08/09/16 at 14:00; Stop 08/09/16 at 14:01; Status DC Info (Do NOT chart on this entry -- for MONITORING) 1 each PRN DAILY PRN MC SEE COMMENTS; Start 08/09/16 at 14:00; Stop 08/11/16 at 13:59; Status DC Lactulose 20 gm BID PO Last administered on 08/11/16 10:27; Start 08/09/16 at 21:00; Stop 08/11/16 at 10:52; Status DC Lorazepam (Ativan) 2 mg PRN Q1HR PRN IV For CIWA 8-14 Last administered on 08/14 05:16; Start 08/09/16 at 20:45 Lorazepam (Ativan) 4 mg PRN Q1HR PRN IV For CIWA 15 or greater Last administered on 08/10/16 06:55; Start 08/09/16 at 20:45 Haloperidol Lactate (Haldol) 5 mg PRN Q4HRS PRN IVP Hallucinatns,Confusn, Delirium Last administered on 08/10/16 12:29; Start 08/09/16 at 20:45; Stop at 10:11; Status DC Metoprolol Tartrate (Lopressor) 5 mg PRN Q4HRS PRN IVP ELEVATED BP, SEE COMMENTS Last administered on 08/10/16 02:49; Start 08/09/16 at 22:15; Stop at 09:48; Status DC Diltiazem HCl (Cardizem) 5 mg 1X ONCE IVP Last administered on 08/10/16 08:22 ; Start 08/10/16 at 08:15; Stop 08/10/16 at 08:16; Status DC Metoprolol Tartrate (Lopressor) 5 mg Q6HRS PRN IVP ELEVATED BP, SEE COMMENTS; Start 08/10/16 at 09:45; Stop 08/10/16 at 10:05; Status DC Aspirin (Aspirin) 300 mg DAILY AK Last administered on 08/12/16 08:21; Start 08/10/16 at 09:45; Stop 08/12/16 at 11:14; Status DC Magnesium Sulfate/ Dextrose 50 ml @ 25 mls/hr 1X ONCE IV Last administered on 08/10/16 10:56; Start 08/10/16 at 10:00; Stop 08/10/16 at 11:59; Status DC Metoprolol Tartrate (Lopressor) 5 mg Q6HRS IVP Last administered on 08/12/16 05:00; Start 08/10/16 at 10:15; Stop 08/12/16 at 11:14; Status DC Enoxaparin Sodium (Lovenox 30mg Syringe) 30 mg Q24H SQ ; Start 08/10/16 at 15:00 ; Stop 08/10/16 at 15:00; Status DC Enoxaparin Sodium (Lovenox 40mg Syringe) 40 mg Q24H SQ Last administered on 15:42; Start 08/10/16 at 15:00 Acetaminophen (Tylenol) 650 mg PRN Q6HRS PRN PEG MILD PAIN / TEMP Last administered on 08/14/16 02:48; Start 08/10/16 at 23:45 Succinylcholine Chloride (Anectine) 200 mg STK-MED ONCE .ROUTE ; Start 08/11/16 at 01:30; Stop 08/11/16 at 01:31; Status DC Succinylcholine Chloride (Anectine) 200 mg STK-MED ONCE .ROUTE ; Start 08/11/16 at 01:30; Stop 08/11/16 at 08:48; Status DC Haloperidol Lactate (Haldol) 2.5 mg PRN Q4HRS PRN IVP Hallucinatns,Confusn, Delirium; Start 08/11/16 at 10:15 Potassium Chloride (KCl Oral Soln) 40 meq 1X ONCE PEG Last administered on 10:30; Start 08/11/16 at 10:30; Stop 08/11/16 at 10:31; Status DC Potassium Chloride (KCl Oral Soln) 40 meq 1X ONCE PEG Last administered on 16:00; Start 08/11/16 at 15:00; Stop 08/11/16 at 15:01; Status DC Digoxin (Lanoxin) 500 mcg 1X ONCE IV Last administered on 08/11/16 10:30; Start 08/11/16 at 10:30; Stop 08/11/16 at 10:31; Status DC Lactulose 20 gm QD PO Last administered on 08/14/16 09:54; Start 08/12/16 at 09:00 Phenylephrine HCl 20 mg/Sodium Chloride 252 ml @ 0 mls/hr 1X ONCE IV ; Start at 14:30; Stop 08/11/16 at 14:31; Status Cancel Magnesium Sulfate/ Dextrose 50 ml @ 25 mls/hr 1X ONCE IV Last administered on 08/12/16 09:32; Start 08/12/16 at 09:00; Stop 08/12/16 at 10:59; Status DC Magnesium Sulfate/ Dextrose 50 ml @ 25 mls/hr 1X ONCE IV Last administered on 08/12/16 17:56; Start 08/12/16 at 16:00; Stop 08/12/16 at 17:59; Status DC Potassium Chloride (KCl Oral Soln) 20 meq BID PEG Last administered on 21:52; Start 08/12/16 at 11:15; Stop 08/13/16 at 09:46; Status DC Diltiazem HCl (Cardizem) 60 mg Q6HRS PO Last administered on 08/14/16 05:29; Start 08/12/16 at 11:30 Metoprolol Tartrate (Lopressor) 25 mg BID FT Last administered on 08/12/16 21: 53; Start 08/12/16 at 21:00; Stop 08/13/16 at 09:46; Status DC Aspirin (Zunilda Aspirin) 325 mg DAILYWBKFT FT Last administered on 08/14/16 09: 50; Start 08/13/16 at 08:00 Ceftriaxone Sodium 1 gm/ Sodium Chloride 50 ml @ 100 mls/hr Q24H IV Last administered on 08/13/16 17:35; Start 08/12/16 at 17:00 Metoprolol Tartrate (Lopressor) 50 mg BID FT Last administered on 08/14/16 09: 49; Start 08/13/16 at 10:00 Potassium Chloride (KCl Oral Soln) 20 meq TID PEG Last administered on 09:49; Start 08/13/16 at 10:00 Magnesium Sulfate/ Dextrose 50 ml @ 25 mls/hr 1X ONCE IV Last administered on 08/13/16 11:26; Start 08/13/16 at 10:00; Stop 08/13/16 at 11:59; Status DC Active Scripts Active Lactulose 20 Gm/30 Ml Solution 20 Gm PO QODAY Ativan (Lorazepam) 0.5 Mg Tablet 0.5 Mg PO BID Diltiazem 24HR Cd (Diltiazem Hcl) 240 Mg Cap.er.24h 240 Mg PO DAILY Vitamin B-1 (Thiamine Hcl) 100 Mg Tablet 100 Mg PO DAILY Lyman 5-325 Tablet (Acetaminophen/Hydrocodone Bitart) 1 Each Tablet 1 Tab PO PRN Q6HRS PRN Reported Omeprazole 20 Mg Capsule.dr 20 Mg PO DAILY Zofran Odt (Ondansetron) 8 Mg Tab.rapdis 1 Tab PO PRN Q8HRS PRN Bunavail 4.2-0.7 mg Film (Buprenorphine HCl/Naloxone HCl) 1 Each Film 1 Each BC DAILY Vitals/I & O Vital Sign - Last 24 Hours 08/13/16 08/13/16 08/13/16 6/16/17 12:47 14:50 16:37 18:26 Temp 98.7 98.7 Pulse 74 93 93 Resp 22 B/P (MAP) 121/87 107/72 (84) 107/72 Pulse Ox 98 98 O2 Delivery Nasal Cannula O2 Flow Rate 3.0 1.0 08/13/16 08/13/16 08/13/16 08/13/16 19:00 20:00 20:41 21:26 Temp 97.4 97.4 Pulse 83 77 Resp 20 B/P (MAP) 124/77 (93) 124/77 Pulse Ox 97 O2 Delivery Nasal Cannula Nasal Cannula Nasal Cannula O2 Flow Rate 3.0 3.0 2.0 08/13/16 08/14/16 08/14/16 08/14/16 23:00 02:50 03:00 05:29 Temp 99.5 98.7 99.5 98.7 Pulse 59 72 71 72 Resp 18 20 B/P (MAP) 122/68 (86) 149/87 149/87 (107) 149/87 Pulse Ox 100 99 O2 Delivery Nasal Cannula Nasal Cannula O2 Flow Rate 3.0 2.0 08/14/16 08/14/16 08/14/16 08/14/16 07:00 07:20 08:00 09:49 Temp 98.6 98.6 Pulse 68 75 Resp 42 B/P (MAP) 144/78 (100) 144/78 Pulse Ox 100 O2 Delivery Nasal Cannula Nasal Cannula Nasal Cannula O2 Flow Rate 2.0 2.0 2.0 08/14/16 11:00 Temp 98.6 98.6 Pulse 68 Resp 36 B/P (MAP) 149/72 (97) Pulse Ox 100 O2 Delivery Nasal Cannula O2 Flow Rate 3.0 Intake and Output 08/13/16 08/13/16 08/14/16 15:00 23:00 07:00 Intake Total 170 ml 290 ml 1065 ml Output Total 650 ml Balance 170 ml -360 ml 1065 ml Nutrition Consultation Dietary Evaluation: Recommendations by RD: Increase Calorie Intake Comments: Rec. continue the TF's until able to pass speech evaluation Fibersource HN, goal rate 55 ml/hr start at 25 ml/hr, increase by 25 ml/hr q8h to goal rate flushes 140 cc q6h if no IVF's running Expected Outcomes/Goals: tolerate TF's at goal rate - met no further wt loss while in the hospital - met Malnutrition Findings: Food and Nutrition Intake (Mod: <75% est energy req 7days Reduced Boarding Room Fixer Strength: N/A Reduced Boarding Room Fixer Strength (Non-Sev: N/A Malnutrition related to morbid: No Weight Status: Underweight Fluid Accumulation (N/A): N/A JOAN GARDINER MD Aug 14, 2016 11:54
--- NOTE | 2016-08-14 13:53 | RAD ---
EXAM: Abdomen one view. HISTORY: Nasogastric tube placement. COMPARISON: 08/10/2016. FINDINGS: A frontal view of the abdomen is obtained. A nasogastric tube has its tip in the distal stomach. There are no distended small bowel loops. There is mild gaseous distention of the colon. There is gas distally. IMPRESSION: 1. Nasogastric tube tip in the distal stomach.
[2016-08-14 15:00] VITALS: BP 136/80
[2016-08-14] MEDS: ENOXAPARIN 40 MG/0.4 ML SYRINGE. SQ SCH (16:35)
--- NOTE | 2016-08-14 16:41 | RAD ---
Two-view abdomen dated 08/14/2016. Comparison made to study dated same day. CLINICAL INDICATION: NG placement. FINDINGS: 2 supine images submitted. Interval retraction of NG tube with tip now localized to the level of the gastric fundus. Mildly dilated loops of small and large bowel, unchanged. IMPRESSION: NG tube with tip projecting to the level of the gastric fundus. Electronically signed by: Ck Casillas MD (08/14/2016 4:37 PM)
[2016-08-14] MEDS: MULTIVIT INFUSN,ADULT 4,VIT K 10 ML, FOLIC ACID 1 MG, THIAMINE 100 MG in IV NORMAL SALI... IV SCH (17:49)
[2016-08-14 19:00] VITALS: BP 151/83
[2016-08-14 23:16] VITALS: BP 165/89
[2016-08-15 03:49] VITALS: BP 170/77
[2016-08-15 04:20] LABS: BASO % 0 % (0-3); EOS % 1 % (0-3); HEMATOCRIT 35.4 % (39.0-53.0); LYMPH # 0.9 x10^3/uL (1.0-4.8); LYMPH % 8 % (24-48); MEAN CORPUSCULAR HEMOGLOBIN 33 pg (25-35); MEAN CORPUSCULAR HGB CONC 34 g/dL (31-37); MEAN CORPUSCULAR VOLUME 97 fL (79-100); MONO % 12 % (0-9); NEUT % 79 % (31-73); PLATELET COUNT 256 x10^3/uL (140-400); RED BLOOD COUNT 3.66 x10^6/uL (4.30-5.70); RED CELL DISTRIBUTION WIDTH 13.3 % (11.5-14.5); WHITE BLOOD COUNT 10.9 x10^3/uL (4.0-11.0)
[2016-08-15 04:40] LABS: ALBUMIN 2.2 g/dL (3.4-5.0); ALBUMIN/GLOBULIN RATIO 0.5 (1.0-1.7); CALCIUM 8.4 mg/dL (8.5-10.1); CREATININE 0.6 mg/dL (0.7-1.3); GFR 135.6; POTASSIUM 3.3 mmol/L (3.5-5.1); TOTAL BILIRUBIN 0.6 mg/dL (0.2-1.0); TOTAL PROTEIN 6.5 g/dL (6.4-8.2)
[2016-08-15] MEDS: dilTIAZem HCL 30 MG TABLET PO SCH ×3 (05:41→17:34)
[2016-08-15 07:00] VITALS: BP 153/90
[2016-08-15] MEDS: IPRATROPIUM BROMIDE 0.5 MG/2.5 ML NEBU. NEB SCH ×4 (07:37→20:04)
--- NOTE | 2016-08-15 08:59 | PDOC ---
PULMONARY PROGRESS NOTES Subjective extubated 08/09 more alert, no pain, on 02, has cough Vitals Vital Signs Date Time Temp Pulse Resp B/P (MAP) Pulse Ox O2 Delivery O2 Flow Rate FiO2 08/15/16 07:41 Nasal Cannula 2.0 08/15/16 07:38 97 08/15/16 07:00 98.6 74 20 153/90 (111) 98.6 General: Alert, Confused HEENT: Other (nc at perrl, nose clear) Lungs: Clear, Other (decrease bs) Cardiovascular: S1, S2 Abdomen: Soft, Non-tender Neuro Exam: Alert Extremities: No Edema Skin: Warm Labs Laboratory Tests Test 08/14/16 17:35 08/15/16 03:30 Ammonia 21 mcmol/L (11-34) White Blood Count 10.9 x10^3/uL (4.0-11.0) Red Blood Count 3.66 x10^6/uL (4.30-5.70) Hemoglobin 12.0 g/dL (13.0-17.5) Hematocrit 35.4 % (39.0-53.0) Mean Corpuscular Volume 97 fL (79-100) Mean Corpuscular Hemoglobin 33 pg (25-35) Mean Corpuscular Hemoglobin Concent 34 g/dL (31-37) Red Cell Distribution Width 13.3 % (11.5-14.5) Platelet Count 256 x10^3/uL (140-400) Neutrophils (%) (Auto) 79 % (31-73) Lymphocytes (%) (Auto) 8 % (24-48) Monocytes (%) (Auto) 12 % (0-9) Eosinophils (%) (Auto) 1 % (0-3) Basophils (%) (Auto) 0 % (0-3) Neutrophils # (Auto) 8.5 x10^3uL (1.8-7.7) Lymphocytes # (Auto) 0.9 x10^3/uL (1.0-4.8) Monocytes # (Auto) 1.3 x10^3/uL (0.0-1.1) Eosinophils # (Auto) 0.1 x10^3/uL (0.0-0.7) Basophils # (Auto) 0.0 x10^3/uL (0.0-0.2) Sodium Level 138 mmol/L (136-145) Potassium Level 3.3 mmol/L (3.5-5.1) Chloride Level 104 mmol/L (98-107) Carbon Dioxide Level 23 mmol/L (21-32) Anion Gap 11 (6-14) Blood Urea Nitrogen 15 mg/dL (8-26) Creatinine 0.6 mg/dL (0.7-1.3) Estimated GFR (Cockcroft-Gault) 135.6 BUN/Creatinine Ratio 25 (6-20) Glucose Level 135 mg/dL (70-99) Calcium Level 8.4 mg/dL (8.5-10.1) Total Bilirubin 0.6 mg/dL (0.2-1.0) Aspartate Amino Transf (AST/SGOT) 55 U/L (15-37) Alanine Aminotransferase (ALT/SGPT) 74 U/L (16-63) Alkaline Phosphatase 70 U/L (46-116) Total Protein 6.5 g/dL (6.4-8.2) Albumin 2.2 g/dL (3.4-5.0) Albumin/Globulin Ratio 0.5 (1.0-1.7) Laboratory Tests Test 08/14/16 17:35 08/15/16 03:30 Ammonia 21 mcmol/L (11-34) White Blood Count 10.9 x10^3/uL (4.0-11.0) Red Blood Count 3.66 x10^6/uL (4.30-5.70) Hemoglobin 12.0 g/dL (13.0-17.5) Hematocrit 35.4 % (39.0-53.0) Mean Corpuscular Volume 97 fL (79-100) Mean Corpuscular Hemoglobin 33 pg (25-35) Mean Corpuscular Hemoglobin Concent 34 g/dL (31-37) Red Cell Distribution Width 13.3 % (11.5-14.5) Platelet Count 256 x10^3/uL (140-400) Neutrophils (%) (Auto) 79 % (31-73) Lymphocytes (%) (Auto) 8 % (24-48) Monocytes (%) (Auto) 12 % (0-9) Eosinophils (%) (Auto) 1 % (0-3) Basophils (%) (Auto) 0 % (0-3) Neutrophils # (Auto) 8.5 x10^3uL (1.8-7.7) Lymphocytes # (Auto) 0.9 x10^3/uL (1.0-4.8) Monocytes # (Auto) 1.3 x10^3/uL (0.0-1.1) Eosinophils # (Auto) 0.1 x10^3/uL (0.0-0.7) Basophils # (Auto) 0.0 x10^3/uL (0.0-0.2) Sodium Level 138 mmol/L (136-145) Potassium Level 3.3 mmol/L (3.5-5.1) Chloride Level 104 mmol/L (98-107) Carbon Dioxide Level 23 mmol/L (21-32) Anion Gap 11 (6-14) Blood Urea Nitrogen 15 mg/dL (8-26) Creatinine 0.6 mg/dL (0.7-1.3) Estimated GFR (Cockcroft-Gault) 135.6 BUN/Creatinine Ratio 25 (6-20) Glucose Level 135 mg/dL (70-99) Calcium Level 8.4 mg/dL (8.5-10.1) Total Bilirubin 0.6 mg/dL (0.2-1.0) Aspartate Amino Transf (AST/SGOT) 55 U/L (15-37) Alanine Aminotransferase (ALT/SGPT) 74 U/L (16-63) Alkaline Phosphatase 70 U/L (46-116) Total Protein 6.5 g/dL (6.4-8.2) Albumin 2.2 g/dL (3.4-5.0) Albumin/Globulin Ratio 0.5 (1.0-1.7) Medications Active Scripts Medications Dose Route/Sig Max Daily Dose Days Date Category Lactulose 20 Gm/30 Ml Solution 20 Gm PO QODAY 02/03/16 Rx Ativan (Lorazepam) 0.5 Mg Tablet 0.5 Mg PO BID 02/03/16 Rx Diltiazem 24HR Cd (Diltiazem Hcl) 240 Mg Cap.er.24h 240 Mg PO DAILY 02/03/16 Rx Vitamin B-1 (Thiamine Hcl) 100 Mg Tablet 100 Mg PO DAILY 02/03/16 Rx Omeprazole 20 Mg Capsule.dr 20 Mg PO DAILY 01/31/16 Reported Zofran Odt (Ondansetron) 8 Mg Tab.rapdis 1 Tab PO PRN Q8HRS PRN 01/31/16 Reported Bunavail 4.2-0.7 mg Film (Buprenorphine HCl/Naloxone HCl) 1 Each Film 1 Each BC DAILY 01/31/16 Reported Gunpowder 5-325 Tablet (Acetaminophen/Hydrocodone Bitart) 1 Each Tablet 1 Tab PO PRN Q6HRS PRN 12/01/15 Rx Impression . 1. Acute respiratory failure secondary to seizures. extubated 08/09 2. s/p Status epilepticus. 3. Positive drug screen for cannabinoids. 4. Lactic acidosis related to seizures. 5. Hepatitis. 6. encephalopathy, due to above 7. Fever, improved.repeat CXR 08/12 with mild infra hilar atelectasis Plan . 1. 02 titration 2. Follow Neurology input. 3. CT chest for pulmonary embolism revealed a 7 mm bullae in LLL, need fu ct in 3 mo 4. EEG done 5 NPO 6. antibiotics D/W CHRISTINE Mathews MD Aug 15, 2016 08:59
[2016-08-15] MEDS: LACTULOSE 20 GM/30 ML SOLUTION. PO SCH (09:00)
--- NOTE | 2016-08-15 09:09 | RAD ---
EXAM: Abdomen one view. HISTORY: Nasogastric tube placement. COMPARISON: 08/14/2016. FINDINGS: A frontal view of the lower chest and upper abdomen is obtained. The nasogastric tube proximal sidehole is above the gastroesophageal junction. Recommend advancement by 8 cm. There are no distended small bowel loops. There are atherosclerotic calcifications of the aorta. There is a chronic right posterior rib fracture. IMPRESSION: 1. Recommend advancement of the nasogastric tube by 8 cm.
--- NOTE | 2016-08-15 09:52 | RAD ---
EXAM: Abdomen one view. HISTORY: Nasogastric tube placement. COMPARISON: 08/15/2016 at 08 49. FINDINGS: A frontal view of the lower chest and upper abdomen is obtained. The nasogastric tube has been advanced and now has its tip in the gastric fundus. There are mildly prominent small bowel loops in the left abdomen, partially visualized. There are atherosclerotic calcifications of the aorta. A right perihilar airspace opacity is suspected. An 8 cm bulla is again noted in the superior segment of the left lower lobe. IMPRESSION: 1. Nasogastric tube in expected position. 2. Correlate for right perihilar infiltrate.
[2016-08-15] MEDS: ASPIRIN 325 MG TABLET FT SCH (10:03)
[2016-08-15] MEDS: levETIRAcetam 500 MG TABLET PO SCH ×2 (10:03→21:30)
[2016-08-15] MEDS: POTASSIUM CHLORIDE 20 MEQ/15 ML ORAL LIQUID. PEG SCH ×3 (10:04→21:29)
[2016-08-15] MEDS: PANTOPRAZOLE IV PUSH 40 MG VIAL. IVP SCH (10:04)
[2016-08-15] MEDS: METOPROLOL TART IMMED RELEASE 25 MG TABLET. FT SCH ×2 (10:19→21:30)
[2016-08-15 11:00] VITALS: BP 147/80
--- NOTE | 2016-08-15 13:48 | PDOC ---
PROGRESS NOTES Chief Complaint Chief Complaint cc: seizure like activity A/P Acute hypoxic respiratory failure: Extubated 08/09, on NC Hepatic encephalopathy, persistent: Alert but confused. limit lactulose, NH3 normal in range. Possible alcohol withdrawal seizures: on CIWA protocol, prn ativan, Chronic alcoholism: fall precautions, Paroxysmal, Afib: on Cardizem, rate controlled. 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 speech evaluation on Tuesday Hypokalemia: replaced, Hx hep C Prognosis guarded. PT/OT, d/w Wift at bedside. History of Present Illness History of Present Illness confused Vitals Vitals Vital Signs Date Time Temp Pulse Resp B/P (MAP) Pulse Ox O2 Delivery O2 Flow Rate FiO2 08/15/16 12:42 69 151/93 08/15/16 12:03 97 Nasal Cannula 2.0 08/15/16 11:00 98.7 20 98.7 Physical Exam General: Alert, No acute distress, Other (not oritend to time) Heart: Normal S1, Normal S2, No murmurs Lungs: Clear, Other (decrease bs) Abdomen: Normal bowel sounds Extremities: No edema, Normal pulses Skin: No rashes Labs LABS Laboratory Tests Test 08/14/16 17:35 08/15/16 03:30 Ammonia 21 mcmol/L (11-34) White Blood Count 10.9 x10^3/uL (4.0-11.0) Red Blood Count 3.66 x10^6/uL (4.30-5.70) Hemoglobin 12.0 g/dL (13.0-17.5) Hematocrit 35.4 % (39.0-53.0) Mean Corpuscular Volume 97 fL (79-100) Mean Corpuscular Hemoglobin 33 pg (25-35) Mean Corpuscular Hemoglobin Concent 34 g/dL (31-37) Red Cell Distribution Width 13.3 % (11.5-14.5) Platelet Count 256 x10^3/uL (140-400) Neutrophils (%) (Auto) 79 % (31-73) Lymphocytes (%) (Auto) 8 % (24-48) Monocytes (%) (Auto) 12 % (0-9) Eosinophils (%) (Auto) 1 % (0-3) Basophils (%) (Auto) 0 % (0-3) Neutrophils # (Auto) 8.5 x10^3uL (1.8-7.7) Lymphocytes # (Auto) 0.9 x10^3/uL (1.0-4.8) Monocytes # (Auto) 1.3 x10^3/uL (0.0-1.1) Eosinophils # (Auto) 0.1 x10^3/uL (0.0-0.7) Basophils # (Auto) 0.0 x10^3/uL (0.0-0.2) Sodium Level 138 mmol/L (136-145) Potassium Level 3.3 mmol/L (3.5-5.1) Chloride Level 104 mmol/L (98-107) Carbon Dioxide Level 23 mmol/L (21-32) Anion Gap 11 (6-14) Blood Urea Nitrogen 15 mg/dL (8-26) Creatinine 0.6 mg/dL (0.7-1.3) Estimated GFR (Cockcroft-Gault) 135.6 BUN/Creatinine Ratio 25 (6-20) Glucose Level 135 mg/dL (70-99) Calcium Level 8.4 mg/dL (8.5-10.1) Total Bilirubin 0.6 mg/dL (0.2-1.0) Aspartate Amino Transf (AST/SGOT) 55 U/L (15-37) Alanine Aminotransferase (ALT/SGPT) 74 U/L (16-63) Alkaline Phosphatase 70 U/L (46-116) Total Protein 6.5 g/dL (6.4-8.2) Albumin 2.2 g/dL (3.4-5.0) Albumin/Globulin Ratio 0.5 (1.0-1.7) Assessment and Plan Assessmemt and Plan Problems Medical Problems: (1) Alcohol withdrawal Status: Acute (2) Hepatic encephalopathy Status: Acute (3) Lactic acid acidosis Status: Acute (4) Respiratory failure Status: Acute Problems: Comment Review of Relevant I have reviewed the following items chikis (where applicable) has been applied. Labs Laboratory Tests Test 08/14/16 17:35 08/15/16 03:30 Ammonia 21 mcmol/L (11-34) White Blood Count 10.9 x10^3/uL (4.0-11.0) Red Blood Count 3.66 x10^6/uL (4.30-5.70) Hemoglobin 12.0 g/dL (13.0-17.5) Hematocrit 35.4 % (39.0-53.0) Mean Corpuscular Volume 97 fL (79-100) Mean Corpuscular Hemoglobin 33 pg (25-35) Mean Corpuscular Hemoglobin Concent 34 g/dL (31-37) Red Cell Distribution Width 13.3 % (11.5-14.5) Platelet Count 256 x10^3/uL (140-400) Neutrophils (%) (Auto) 79 % (31-73) Lymphocytes (%) (Auto) 8 % (24-48) Monocytes (%) (Auto) 12 % (0-9) Eosinophils (%) (Auto) 1 % (0-3) Basophils (%) (Auto) 0 % (0-3) Neutrophils # (Auto) 8.5 x10^3uL (1.8-7.7) Lymphocytes # (Auto) 0.9 x10^3/uL (1.0-4.8) Monocytes # (Auto) 1.3 x10^3/uL (0.0-1.1) Eosinophils # (Auto) 0.1 x10^3/uL (0.0-0.7) Basophils # (Auto) 0.0 x10^3/uL (0.0-0.2) Sodium Level 138 mmol/L (136-145) Potassium Level 3.3 mmol/L (3.5-5.1) Chloride Level 104 mmol/L (98-107) Carbon Dioxide Level 23 mmol/L (21-32) Anion Gap 11 (6-14) Blood Urea Nitrogen 15 mg/dL (8-26) Creatinine 0.6 mg/dL (0.7-1.3) Estimated GFR (Cockcroft-Gault) 135.6 BUN/Creatinine Ratio 25 (6-20) Glucose Level 135 mg/dL (70-99) Calcium Level 8.4 mg/dL (8.5-10.1) Total Bilirubin 0.6 mg/dL (0.2-1.0) Aspartate Amino Transf (AST/SGOT) 55 U/L (15-37) Alanine Aminotransferase (ALT/SGPT) 74 U/L (16-63) Alkaline Phosphatase 70 U/L (46-116) Total Protein 6.5 g/dL (6.4-8.2) Albumin 2.2 g/dL (3.4-5.0) Albumin/Globulin Ratio 0.5 (1.0-1.7) Laboratory Tests Test 08/14/16 17:35 08/15/16 03:30 Ammonia 21 mcmol/L (11-34) White Blood Count 10.9 x10^3/uL (4.0-11.0) Red Blood Count 3.66 x10^6/uL (4.30-5.70) Hemoglobin 12.0 g/dL (13.0-17.5) Hematocrit 35.4 % (39.0-53.0) Mean Corpuscular Volume 97 fL (79-100) Mean Corpuscular Hemoglobin 33 pg (25-35) Mean Corpuscular Hemoglobin Concent 34 g/dL (31-37) Red Cell Distribution Width 13.3 % (11.5-14.5) Platelet Count 256 x10^3/uL (140-400) Neutrophils (%) (Auto) 79 % (31-73) Lymphocytes (%) (Auto) 8 % (24-48) Monocytes (%) (Auto) 12 % (0-9) Eosinophils (%) (Auto) 1 % (0-3) Basophils (%) (Auto) 0 % (0-3) Neutrophils # (Auto) 8.5 x10^3uL (1.8-7.7) Lymphocytes # (Auto) 0.9 x10^3/uL (1.0-4.8) Monocytes # (Auto) 1.3 x10^3/uL (0.0-1.1) Eosinophils # (Auto) 0.1 x10^3/uL (0.0-0.7) Basophils # (Auto) 0.0 x10^3/uL (0.0-0.2) Sodium Level 138 mmol/L (136-145) Potassium Level 3.3 mmol/L (3.5-5.1) Chloride Level 104 mmol/L (98-107) Carbon Dioxide Level 23 mmol/L (21-32) Anion Gap 11 (6-14) Blood Urea Nitrogen 15 mg/dL (8-26) Creatinine 0.6 mg/dL (0.7-1.3) Estimated GFR (Cockcroft-Gault) 135.6 BUN/Creatinine Ratio 25 (6-20) Glucose Level 135 mg/dL (70-99) Calcium Level 8.4 mg/dL (8.5-10.1) Total Bilirubin 0.6 mg/dL (0.2-1.0) Aspartate Amino Transf (AST/SGOT) 55 U/L (15-37) Alanine Aminotransferase (ALT/SGPT) 74 U/L (16-63) Alkaline Phosphatase 70 U/L (46-116) Total Protein 6.5 g/dL (6.4-8.2) Albumin 2.2 g/dL (3.4-5.0) Albumin/Globulin Ratio 0.5 (1.0-1.7) Microbiology 08/11/16 Blood Culture - Preliminary, Resulted NO GROWTH AFTER 4 DAYS 08/11/16 Urine Culture - Final, Complete 08/11/16 Urine Culture Result 1 (JENNY) - Final, Complete 08/11/16 Antimicrobic Susceptibility - Final, Complete Medications Current Medications Diltiazem HCl (Cardizem) 25 mg STK-MED ONCE .ROUTE ; Start 08/08/16 at 10:37; Stop 08/08/16 at 10:38; Status DC Diltiazem HCl 125 mg/Dextrose 125 ml @ 0 mls/hr CONT PRN IV SEE I/O RECORD Last administered on 08/12/16 06:20; Start 08/08/16 at 11:00; Stop 08/12/16 at 12:30; Status DC Diltiazem HCl (Cardizem) 20 mg 1X ONCE IVP Last administered on 08/08/16 10: 40; Start 08/08/16 at 11:00; Stop 08/08/16 at 11:01; Status DC Lorazepam (Ativan) 2 mg STK-MED ONCE .ROUTE ; Start 08/08/16 at 10:55; Stop 01/14 at 10:56; Status DC Iohexol (Omnipaque 350 Mg/ml) 90 ml 1X ONCE IV Last administered on 08/08/16 11:15; Start 08/08/16 at 11:15; Stop 08/08/16 at 11:16; Status DC Propofol 20 ml @ 0 mls/hr 1X ONCE IV Last administered on 08/08/16 11:20; Start 08/08/16 at 11:15; Stop 08/08/16 at 11:16; Status DC Info (Do NOT chart on this entry -- for MONITORING) 1 each PRN DAILY PRN MC SEE COMMENTS; Start 08/08/16 at 11:15; Stop 08/10/16 at 09:37; Status DC Fentanyl Citrate (Fentanyl 2ml Vial) 100 mcg 1X ONCE IV Last administered on 11:03; Start 08/08/16 at 11:15; Stop 08/08/16 at 11:16; Status DC Fentanyl Citrate (Fentanyl 2ml Vial) 100 mcg 1X ONCE IV Last administered on 11:16; Start 08/08/16 at 11:15; Stop 08/08/16 at 11:16; Status DC Propofol 50 ml @ As Directed STK-MED ONCE IV ; Start 08/08/16 at 11:17; Stop 01/14 at 11:18; Status DC Ondansetron HCl (Zofran) 4 mg PRN Q8HRS PRN IV NAUSEA/VOMITING; Start 08/08/16 at 11:30; Stop 08/09/16 at 11:29; Status DC Fentanyl Citrate (Fentanyl 2ml Vial) 50 mcg PRN Q2HR PRN IV PAIN Last administered on 08/08/16 13:16; Start 08/08/16 at 11:30; Stop 08/09/16 at 11:29 ; Status DC Levetiracetam 1000 mg/Sodium Chloride 110 ml @ 440 mls/hr 1X ONCE IV Last administered on 08/08/16 11:39; Start 08/08/16 at 11:45; Stop 08/08/16 at 11:59 ; Status DC Fentanyl Citrate (Fentanyl 2ml Vial) 100 mcg 1X ONCE IV ; Start 08/08/16 at 11: 45; Stop 08/08/16 at 11:46; Status DC Propofol 50 ml @ As Directed STK-MED ONCE IV ; Start 08/08/16 at 12:09; Stop 01/14 at 12:10; Status DC Lorazepam (Ativan) 2 mg 1X ONCE IV ; Start 08/08/16 at 13:00; Stop 08/08/16 at 13:01; Status DC Succinylcholine Chloride (Anectine) 100 mg 1X ONCE IV ; Start 08/08/16 at 13:00 ; Stop 08/08/16 at 13:01; Status DC Etomidate (Amidate) 20 mg 1X ONCE IV ; Start 08/08/16 at 13:00; Stop 08/08/16 at 13:01; Status DC Propofol 100 ml @ 0 mls/hr CONT PRN IV PER PROTOCOL Last administered on 09:08; Start 08/08/16 at 13:45; Stop 08/11/16 at 10:11; Status DC Fentanyl Citrate (Fentanyl 2ml Vial) 50 mcg PRN Q1HR PRN IV COMM; Start at 13:45 Chlorhexidine Gluconate (Peridex) 15 ml BID MM Last administered on 08/09/16 09:08; Start 08/08/16 at 21:00; Stop 08/10/16 at 08:29; Status DC Ipratropium [place] (Atrovent) 0.5 mg RTQID NEB Last administered on 08/15/16 11:59; Start 08/08/16 at 16:00 Metoprolol Tartrate (Lopressor) 12.5 mg BID PO Last administered on 08/08/16 21:51; Start 08/08/16 at 14:30; Stop 08/10/16 at 09:48; Status DC Lorazepam (Ativan) 1 mg PRN Q4HRS PRN IV ANXIETY / AGITATION Last administered on 08/14/16 18:45; Start 08/08/16 at 14:45 Levetiracetam (Keppra) 500 mg Q12HR PO Last administered on 08/15/16 10:03; Start 08/08/16 at 21:00 Multivitamins 10 ml/Folic Acid 1 mg/Thiamine HCl 100 mg/Sodium Chloride 1,011.2 ml @ 100 mls/ hr Q24H IV Last administered on 08/14/16 17:49; Start 08/08/16 at 16:00 Lorazepam (Ativan) 2 mg PRN Q4HRS PRN IV ANXIETY / AGITATION Last administered on 08/10/16 11:11; Start 08/08/16 at 15:15; Stop 08/13/16 at 11:08; Status DC Aspirin (Zunilda Aspirin) 325 mg DAILY PO Last administered on 08/09/16 09:09; Start 08/09/16 at 09:00; Stop 08/10/16 at 09:48; Status DC Diltiazem HCl (Cardizem 24hr Cd) 240 mg DAILY PO ; Start 08/09/16 at 09:00; Stop 08/10/16 at 09:48; Status DC Lactulose 20 gm Q48H PO Last administered on 08/09/16 09:13; Start 08/09/16 at 09:00; Stop 08/09/16 at 16:32; Status DC Pantoprazole Sodium (Protonix) 40 mg DAILYAC PO ; Start 08/09/16 at 07:30; Stop 08/09/16 at 09:36; Status DC Non-Formulary Medication 100 mg DAILY PO Last administered on 08/13/16 10:02; Start 08/09/16 at 09:00; Stop 08/13/16 at 11:09; Status UNV Pantoprazole Sodium (Protonix Vial) 40 mg DAILYAC IVP Last administered on 08/15 10:04; Start 08/09/16 at 10:00 Iohexol (Omnipaque 300 Mg/ml) 75 ml 1X ONCE IV ; Start 08/09/16 at 14:00; Stop 08/09/16 at 14:01; Status DC Info (Do NOT chart on this entry -- for MONITORING) 1 each PRN DAILY PRN MC SEE COMMENTS; Start 08/09/16 at 14:00; Stop 08/11/16 at 13:59; Status DC Lactulose 20 gm BID PO Last administered on 08/11/16 10:27; Start 08/09/16 at 21:00; Stop 08/11/16 at 10:52; Status DC Lorazepam (Ativan) 2 mg PRN Q1HR PRN IV For CIWA 8-14 Last administered on 08/14 22:44; Start 08/09/16 at 20:45 Lorazepam (Ativan) 4 mg PRN Q1HR PRN IV For CIWA 15 or greater Last administered on 08/10/16 06:55; Start 08/09/16 at 20:45 Haloperidol Lactate (Haldol) 5 mg PRN Q4HRS PRN IVP Hallucinatns,Confusn, Delirium Last administered on 08/10/16 12:29; Start 08/09/16 at 20:45; Stop at 10:11; Status DC Metoprolol Tartrate (Lopressor) 5 mg PRN Q4HRS PRN IVP ELEVATED BP, SEE COMMENTS Last administered on 08/10/16 02:49; Start 08/09/16 at 22:15; Stop at 09:48; Status DC Diltiazem HCl (Cardizem) 5 mg 1X ONCE IVP Last administered on 08/10/16 08:22 ; Start 08/10/16 at 08:15; Stop 08/10/16 at 08:16; Status DC Metoprolol Tartrate (Lopressor) 5 mg Q6HRS PRN IVP ELEVATED BP, SEE COMMENTS; Start 08/10/16 at 09:45; Stop 08/10/16 at 10:05; Status DC Aspirin (Aspirin) 300 mg DAILY VA Last administered on 08/12/16 08:21; Start 08/10/16 at 09:45; Stop 08/12/16 at 11:14; Status DC Magnesium Sulfate/ Dextrose 50 ml @ 25 mls/hr 1X ONCE IV Last administered on 08/10/16 10:56; Start 08/10/16 at 10:00; Stop 08/10/16 at 11:59; Status DC Metoprolol Tartrate (Lopressor) 5 mg Q6HRS IVP Last administered on 08/12/16 05:00; Start 08/10/16 at 10:15; Stop 08/12/16 at 11:14; Status DC Enoxaparin Sodium (Lovenox 30mg Syringe) 30 mg Q24H SQ ; Start 08/10/16 at 15:00 ; Stop 08/10/16 at 15:00; Status DC Enoxaparin Sodium (Lovenox 40mg Syringe) 40 mg Q24H SQ Last administered on 16:35; Start 08/10/16 at 15:00 Acetaminophen (Tylenol) 650 mg PRN Q6HRS PRN PEG MILD PAIN / TEMP Last administered on 08/14/16 02:48; Start 08/10/16 at 23:45 Succinylcholine Chloride (Anectine) 200 mg STK-MED ONCE .ROUTE ; Start 08/11/16 at 01:30; Stop 08/11/16 at 01:31; Status DC Succinylcholine Chloride (Anectine) 200 mg STK-MED ONCE .ROUTE ; Start 08/11/16 at 01:30; Stop 08/11/16 at 08:48; Status DC Haloperidol Lactate (Haldol) 2.5 mg PRN Q4HRS PRN IVP Hallucinatns,Confusn, Delirium; Start 08/11/16 at 10:15 Potassium Chloride (KCl Oral Soln) 40 meq 1X ONCE PEG Last administered on 10:30; Start 08/11/16 at 10:30; Stop 08/11/16 at 10:31; Status DC Potassium Chloride (KCl Oral Soln) 40 meq 1X ONCE PEG Last administered on 16:00; Start 08/11/16 at 15:00; Stop 08/11/16 at 15:01; Status DC Digoxin (Lanoxin) 500 mcg 1X ONCE IV Last administered on 08/11/16 10:30; Start 08/11/16 at 10:30; Stop 08/11/16 at 10:31; Status DC Lactulose 20 gm QD PO Last administered on 08/14/16 09:54; Start 08/12/16 at 09:00; Stop 08/15/16 at 11:50; Status DC Phenylephrine HCl 20 mg/Sodium Chloride 252 ml @ 0 mls/hr 1X ONCE IV ; Start at 14:30; Stop 08/11/16 at 14:31; Status Cancel Magnesium Sulfate/ Dextrose 50 ml @ 25 mls/hr 1X ONCE IV Last administered on 08/12/16 09:32; Start 08/12/16 at 09:00; Stop 08/12/16 at 10:59; Status DC Magnesium Sulfate/ Dextrose 50 ml @ 25 mls/hr 1X ONCE IV Last administered on 08/12/16 17:56; Start 08/12/16 at 16:00; Stop 08/12/16 at 17:59; Status DC Potassium Chloride (KCl Oral Soln) 20 meq BID PEG Last administered on 21:52; Start 08/12/16 at 11:15; Stop 08/13/16 at 09:46; Status DC Diltiazem HCl (Cardizem) 60 mg Q6HRS PO Last administered on 08/15/16 12:42; Start 08/12/16 at 11:30 Metoprolol Tartrate (Lopressor) 25 mg BID FT Last administered on 08/12/16 21: 53; Start 08/12/16 at 21:00; Stop 08/13/16 at 09:46; Status DC Aspirin (Zunilda Aspirin) 325 mg DAILYWBKFT FT Last administered on 08/15/16 10: 03; Start 08/13/16 at 08:00 Ceftriaxone Sodium 1 gm/ Sodium Chloride 50 ml @ 100 mls/hr Q24H IV Last administered on 08/14/16 16:32; Start 08/12/16 at 17:00 Metoprolol Tartrate (Lopressor) 50 mg BID FT Last administered on 08/15/16 10: 19; Start 08/13/16 at 10:00 Potassium Chloride (KCl Oral Soln) 20 meq TID PEG Last administered on 10:04; Start 08/13/16 at 10:00 Magnesium Sulfate/ Dextrose 50 ml @ 25 mls/hr 1X ONCE IV Last administered on 08/13/16 11:26; Start 08/13/16 at 10:00; Stop 08/13/16 at 11:59; Status DC Active Scripts Active Lactulose 20 Gm/30 Ml Solution 20 Gm PO QODAY Ativan (Lorazepam) 0.5 Mg Tablet 0.5 Mg PO BID Diltiazem 24HR Cd (Diltiazem Hcl) 240 Mg Cap.er.24h 240 Mg PO DAILY Vitamin B-1 (Thiamine Hcl) 100 Mg Tablet 100 Mg PO DAILY Barney 5-325 Tablet (Acetaminophen/Hydrocodone Bitart) 1 Each Tablet 1 Tab PO PRN Q6HRS PRN Reported Omeprazole 20 Mg Capsule.dr 20 Mg PO DAILY Zofran Odt (Ondansetron) 8 Mg Tab.rapdis 1 Tab PO PRN Q8HRS PRN [place] 4.2-0.7 mg Film (Buprenorphine HCl/Naloxone HCl) 1 Each Film 1 Each BC DAILY Vitals/I & O Vital Sign - Last 24 Hours 08/14/16 08/14/16 08/14/16 08/14/16 15:00 16:01 17:51 19:00 Temp 99.3 98.1 99.3 98.1 Pulse 69 70 72 Resp 32 26 B/P (MAP) 136/80 (98) 163/90 151/83 (105) Pulse Ox 100 98 O2 Delivery Nasal Cannula Nasal Cannula Nasal Cannula O2 Flow Rate 3.0 2.0 2.0 08/14/16 08/14/16 08/14/16 08/14/16 20:13 20:28 21:05 23:16 Temp 98.4 98.4 Pulse 70 66 Resp 30 B/P (MAP) 151/83 165/89 (114) Pulse Ox 98 O2 Delivery Nasal Cannula Nasal Cannula Nasal Cannula O2 Flow Rate 2.0 2.0 2.0 08/14/16 08/15/16 08/15/16 08/15/16 23:19 03:49 05:41 07:00 Temp 98.1 98.6 98.1 98.6 Pulse 66 69 76 74 Resp 28 20 B/P (MAP) 165/89 170/77 (108) 170/77 153/90 (111) Pulse Ox 98 97 O2 Delivery Nasal Cannula Nasal Cannula O2 Flow Rate 2.0 2.0 08/15/16 08/15/16 08/15/16 08/15/16 07:38 07:41 10:19 11:00 Temp 98.7 98.7 Pulse 79 74 Resp 20 B/P (MAP) 147/80 147/80 (102) Pulse Ox 97 99 O2 Delivery Nasal Cannula Nasal Cannula Nasal Cannula O2 Flow Rate 2.0 2.0 2.0 08/15/16 08/15/16 12:03 12:42 Pulse 69 B/P (MAP) 151/93 Pulse Ox 97 O2 Delivery Nasal Cannula O2 Flow Rate 2.0 Intake and Output 08/14/16 08/14/16 08/15/16 15:00 23:00 07:00 Intake Total 100 ml 408 ml 2160 ml Output Total 650 ml 1250 ml Balance 100 ml -242 ml 910 ml Nutrition Consultation Dietary Evaluation: Recommendations by RD: Increase Calorie Intake Comments: Rec. 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
[2016-08-15] MEDS ORDERED: POTASSIUM CHLORIDE 20 MEQ TABLET.ER. PO ONE (14:00)
[2016-08-15 14:52] VITALS: BP 144/79
[2016-08-15] MEDS: MULTIVIT INFUSN,ADULT 4,VIT K 10 ML, FOLIC ACID 1 MG, THIAMINE 100 MG in IV NORMAL SALI... IV SCH (15:33)
[2016-08-15] MEDS: ENOXAPARIN 40 MG/0.4 ML SYRINGE. SQ SCH (15:34)
[2016-08-15 19:20] VITALS: BP 135/77
[2016-08-15 23:05] VITALS: BP 176/100
[2016-08-16] VITALS (7 sets, daily range): BP systolic 139–161; BP diastolic 74–87
[2016-08-16] MEDS: dilTIAZem HCL 30 MG TABLET PO SCH ×4 (00:38→17:51)
[2016-08-16 04:30] LABS: BASO % 0 % (0-3); EOS % 1 % (0-3); HEMOGLOBIN 11.5 g/dL (13.0-17.5); LYMPH # 1.2 x10^3/uL (1.0-4.8); LYMPH % 9 % (24-48); MEAN CORPUSCULAR HEMOGLOBIN 32 pg (25-35); MEAN CORPUSCULAR HGB CONC 34 g/dL (31-37); MEAN CORPUSCULAR VOLUME 96 fL (79-100); MONO % 11 % (0-9); NEUT % 79 % (31-73); PLATELET COUNT 373 x10^3/uL (140-400); RED BLOOD COUNT 3.55 x10^6/uL (4.30-5.70); RED CELL DISTRIBUTION WIDTH 13.1 % (11.5-14.5); WHITE BLOOD COUNT 13.5 x10^3/uL (4.0-11.0)
[2016-08-16] MEDS: IPRATROPIUM BROMIDE 0.5 MG/2.5 ML NEBU. NEB SCH ×4 (07:26→19:23)
[2016-08-16] MEDS: METOPROLOL TART IMMED RELEASE 25 MG TABLET. FT SCH ×2 (09:00→21:24)
[2016-08-16] MEDS: POTASSIUM CHLORIDE 20 MEQ/15 ML ORAL LIQUID. PEG SCH ×3 (09:00→21:25)
[2016-08-16] MEDS: levETIRAcetam 500 MG TABLET PO SCH ×2 (09:00→21:23)
--- NOTE | 2016-08-16 11:28 | PDOC ---
PROGRESS NOTES Chief Complaint Chief Complaint cc: seizure like activity A/P Acute hypoxic respiratory failure: Extubated 08/09, on NC Hepatic encephalopathy, persistent: Alert but confused. limit lactulose, NH3 normal in range. Possible alcohol withdrawal seizures: on CIWA protocol, prn Ativan, Chronic alcoholism: fall precautions, Paroxysmal, Afib: on Cardizem, rate controlled. 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 failed speech, video swallow, tube feeds. Hypokalemia: replaced, Hx hep C Prognosis guarded. PT/OT, History of Present Illness History of Present Illness confused Vitals Vitals Vital Signs Date Time Temp Pulse Resp B/P (MAP) Pulse Ox O2 Delivery O2 Flow Rate FiO2 08/16/16 11:10 98.4 79 26 139/77 (97) 96 Room Air 98.4 08/15/16 23:05 3.0 Physical Exam General: Alert, No acute distress, Other (not oritend to time) Heart: Normal S1, Normal S2, No murmurs Lungs: Clear, Other (decrease bs) Abdomen: Normal bowel sounds Extremities: No edema, Normal pulses Skin: No rashes Labs LABS Laboratory Tests Test 08/16/16 03:11 White Blood Count 13.5 x10^3/uL (4.0-11.0) Red Blood Count 3.55 x10^6/uL (4.30-5.70) Hemoglobin 11.5 g/dL (13.0-17.5) Hematocrit 34.0 % (39.0-53.0) Mean Corpuscular Volume 96 fL (79-100) Mean Corpuscular Hemoglobin 32 pg (25-35) Mean Corpuscular Hemoglobin Concent 34 g/dL (31-37) Red Cell Distribution Width 13.1 % (11.5-14.5) Platelet Count 373 x10^3/uL (140-400) Neutrophils (%) (Auto) 79 % (31-73) Lymphocytes (%) (Auto) 9 % (24-48) Monocytes (%) (Auto) 11 % (0-9) Eosinophils (%) (Auto) 1 % (0-3) Basophils (%) (Auto) 0 % (0-3) Neutrophils # (Auto) 10.7 x10^3uL (1.8-7.7) Lymphocytes # (Auto) 1.2 x10^3/uL (1.0-4.8) Monocytes # (Auto) 1.4 x10^3/uL (0.0-1.1) Eosinophils # (Auto) 0.1 x10^3/uL (0.0-0.7) Basophils # (Auto) 0.0 x10^3/uL (0.0-0.2) Assessment and Plan Assessmemt and Plan Problems Medical Problems: (1) Alcohol withdrawal Status: Acute (2) Hepatic encephalopathy Status: Acute (3) Lactic acid acidosis Status: Acute (4) Respiratory failure Status: Acute Problems: Comment Review of Relevant I have reviewed the following items chikis (where applicable) has been applied. Labs Laboratory Tests Test 08/14/16 17:35 08/15/16 03:30 08/16/16 03:11 Ammonia 21 mcmol/L (11-34) White Blood Count 10.9 x10^3/uL (4.0-11.0) 13.5 x10^3/uL (4.0-11.0) Red Blood Count 3.66 x10^6/uL (4.30-5.70) 3.55 x10^6/uL (4.30-5.70) Hemoglobin 12.0 g/dL (13.0-17.5) 11.5 g/dL (13.0-17.5) Hematocrit 35.4 % (39.0-53.0) 34.0 % (39.0-53.0) Mean Corpuscular Volume 97 fL (79-100) 96 fL (79-100) Mean Corpuscular Hemoglobin 33 pg (25-35) 32 pg (25-35) Mean Corpuscular Hemoglobin Concent 34 g/dL (31-37) 34 g/dL (31-37) Red Cell Distribution Width 13.3 % (11.5-14.5) 13.1 % (11.5-14.5) Platelet Count 256 x10^3/uL (140-400) 373 x10^3/uL (140-400) Neutrophils (%) (Auto) 79 % (31-73) 79 % (31-73) Lymphocytes (%) (Auto) 8 % (24-48) 9 % (24-48) Monocytes (%) (Auto) 12 % (0-9) 11 % (0-9) Eosinophils (%) (Auto) 1 % (0-3) 1 % (0-3) Basophils (%) (Auto) 0 % (0-3) 0 % (0-3) Neutrophils # (Auto) 8.5 x10^3uL (1.8-7.7) 10.7 x10^3uL (1.8-7.7) Lymphocytes # (Auto) 0.9 x10^3/uL (1.0-4.8) 1.2 x10^3/uL (1.0-4.8) Monocytes # (Auto) 1.3 x10^3/uL (0.0-1.1) 1.4 x10^3/uL (0.0-1.1) Eosinophils # (Auto) 0.1 x10^3/uL (0.0-0.7) 0.1 x10^3/uL (0.0-0.7) Basophils # (Auto) 0.0 x10^3/uL (0.0-0.2) 0.0 x10^3/uL (0.0-0.2) Sodium Level 138 mmol/L (136-145) Potassium Level 3.3 mmol/L (3.5-5.1) Chloride Level 104 mmol/L (98-107) Carbon Dioxide Level 23 mmol/L (21-32) Anion Gap 11 (6-14) Blood Urea Nitrogen 15 mg/dL (8-26) Creatinine 0.6 mg/dL (0.7-1.3) Estimated GFR (Cockcroft-Gault) 135.6 BUN/Creatinine Ratio 25 (6-20) Glucose Level 135 mg/dL (70-99) Calcium Level 8.4 mg/dL (8.5-10.1) Total Bilirubin 0.6 mg/dL (0.2-1.0) Aspartate Amino Transf (AST/SGOT) 55 U/L (15-37) Alanine Aminotransferase (ALT/SGPT) 74 U/L (16-63) Alkaline Phosphatase 70 U/L (46-116) Total Protein 6.5 g/dL (6.4-8.2) Albumin 2.2 g/dL (3.4-5.0) Albumin/Globulin Ratio 0.5 (1.0-1.7) Laboratory Tests Test 08/16/16 03:11 White Blood Count 13.5 x10^3/uL (4.0-11.0) Red Blood Count 3.55 x10^6/uL (4.30-5.70) Hemoglobin 11.5 g/dL (13.0-17.5) Hematocrit 34.0 % (39.0-53.0) Mean Corpuscular Volume 96 fL (79-100) Mean Corpuscular Hemoglobin 32 pg (25-35) Mean Corpuscular Hemoglobin Concent 34 g/dL (31-37) Red Cell Distribution Width 13.1 % (11.5-14.5) Platelet Count 373 x10^3/uL (140-400) Neutrophils (%) (Auto) 79 % (31-73) Lymphocytes (%) (Auto) 9 % (24-48) Monocytes (%) (Auto) 11 % (0-9) Eosinophils (%) (Auto) 1 % (0-3) Basophils (%) (Auto) 0 % (0-3) Neutrophils # (Auto) 10.7 x10^3uL (1.8-7.7) Lymphocytes # (Auto) 1.2 x10^3/uL (1.0-4.8) Monocytes # (Auto) 1.4 x10^3/uL (0.0-1.1) Eosinophils # (Auto) 0.1 x10^3/uL (0.0-0.7) Basophils # (Auto) 0.0 x10^3/uL (0.0-0.2) Microbiology 08/11/16 Blood Culture - Final, Complete NO GROWTH AFTER 5 DAYS 08/11/16 Urine Culture - Final, Complete 08/11/16 Urine Culture Result 1 (JENNY) - Final, Complete 08/11/16 Antimicrobic Susceptibility - Final, Complete Medications Current Medications Diltiazem HCl (Cardizem) 25 mg STK-MED ONCE .ROUTE ; Start 08/08/16 at 10:37; Stop 08/08/16 at 10:38; Status DC Diltiazem HCl 125 mg/Dextrose 125 ml @ 0 mls/hr CONT PRN IV SEE I/O RECORD Last administered on 08/12/16t 06:20; Start 08/08/16 at 11:00; Stop 08/12/16 at 12:30; Status DC Diltiazem HCl (Cardizem) 20 mg 1X ONCE IVP Last administered on 08/08/16 10: 40; Start 08/08/16 at 11:00; Stop 08/08/16 at 11:01; Status DC Lorazepam (Ativan) 2 mg STK-MED ONCE .ROUTE ; Start 08/08/16 at 10:55; Stop 01/14 at 10:56; Status DC Iohexol (Omnipaque 350 Mg/ml) 90 ml 1X ONCE IV Last administered on 08/08/16 11:15; Start 08/08/16 at 11:15; Stop 08/08/16 at 11:16; Status DC Propofol 20 ml @ 0 mls/hr 1X ONCE IV Last administered on 08/08/16 11:20; Start 08/08/16 at 11:15; Stop 08/08/16 at 11:16; Status DC Info (Do NOT chart on this entry -- for MONITORING) 1 each PRN DAILY PRN MC SEE COMMENTS; Start 08/08/16 at 11:15; Stop 08/10/16 at 09:37; Status DC Fentanyl Citrate (Fentanyl 2ml Vial) 100 mcg 1X ONCE IV Last administered on 11:03; Start 08/08/16 at 11:15; Stop 08/08/16 at 11:16; Status DC Fentanyl Citrate (Fentanyl 2ml Vial) 100 mcg 1X ONCE IV Last administered on 11:16; Start 08/08/16 at 11:15; Stop 08/08/16 at 11:16; Status DC Propofol 50 ml @ As Directed STK-MED ONCE IV ; Start 08/08/16 at 11:17; Stop 01/14 at 11:18; Status DC Ondansetron HCl (Zofran) 4 mg PRN Q8HRS PRN IV NAUSEA/VOMITING; Start 08/08/16 at 11:30; Stop 08/09/16 at 11:29; Status DC Fentanyl Citrate (Fentanyl 2ml Vial) 50 mcg PRN Q2HR PRN IV PAIN Last administered on 08/08/16 13:16; Start 08/08/16 at 11:30; Stop 08/09/16 at 11:29 ; Status DC Levetiracetam 1000 mg/Sodium Chloride 110 ml @ 440 mls/hr 1X ONCE IV Last administered on 08/08/16 11:39; Start 08/08/16 at 11:45; Stop 08/08/16 at 11:59 ; Status DC Fentanyl Citrate (Fentanyl 2ml Vial) 100 mcg 1X ONCE IV ; Start 08/08/16 at 11: 45; Stop 08/08/16 at 11:46; Status DC Propofol 50 ml @ As Directed STK-MED ONCE IV ; Start 08/08/16 at 12:09; Stop 01/14 at 12:10; Status DC Lorazepam (Ativan) 2 mg 1X ONCE IV ; Start 08/08/16 at 13:00; Stop 08/08/16 at 13:01; Status DC Succinylcholine Chloride (Anectine) 100 mg 1X ONCE IV ; Start 08/08/16 at 13:00 ; Stop 08/08/16 at 13:01; Status DC Etomidate (Amidate) 20 mg 1X ONCE IV ; Start 08/08/16 at 13:00; Stop 08/08/16 at 13:01; Status DC Propofol 100 ml @ 0 mls/hr CONT PRN IV PER PROTOCOL Last administered on 09:08; Start 08/08/16 at 13:45; Stop 08/11/16 at 10:11; Status DC Fentanyl Citrate (Fentanyl 2ml Vial) 50 mcg PRN Q1HR PRN IV COMM; Start at 13:45 Chlorhexidine Gluconate (Peridex) 15 ml BID MM Last administered on 08/09/16 09:08; Start 08/08/16 at 21:00; Stop 08/10/16 at 08:29; Status DC Ipratropium [place] (Atrovent) 0.5 mg RTQID NEB Last administered on 08/16/16 11:00; Start 08/08/16 at 16:00 Metoprolol Tartrate (Lopressor) 12.5 mg BID PO Last administered on 08/08/16 21:51; Start 08/08/16 at 14:30; Stop 08/10/16 at 09:48; Status DC Lorazepam (Ativan) 1 mg PRN Q4HRS PRN IV ANXIETY / AGITATION Last administered on 6/17/17at 18:45; Start 08/08/16 at 14:45 Levetiracetam (Keppra) 500 mg Q12HR PO Last administered on 08/15/16 21:30; Start 08/08/16 at 21:00 Multivitamins 10 ml/Folic Acid 1 mg/Thiamine HCl 100 mg/Sodium Chloride 1,011.2 ml @ 100 mls/ hr Q24H IV Last administered on 08/15/16 15:33; Start 08/08/16 at 16:00 Lorazepam (Ativan) 2 mg PRN Q4HRS PRN IV ANXIETY / AGITATION Last administered on 08/10/16 11:11; Start 08/08/16 at 15:15; Stop 08/13/16 at 11:08; Status DC Aspirin (Zunilda Aspirin) 325 mg DAILY PO Last administered on 08/09/16 09:09; Start 08/09/16 at 09:00; Stop 08/10/16 at 09:48; Status DC Diltiazem HCl (Cardizem 24hr Cd) 240 mg DAILY PO ; Start 08/09/16 at 09:00; Stop 08/10/16 at 09:48; Status DC Lactulose 20 gm Q48H PO Last administered on 08/09/16 09:13; Start 08/09/16 at 09:00; Stop 08/09/16 at 16:32; Status DC Pantoprazole Sodium (Protonix) 40 mg DAILYAC PO ; Start 08/09/16 at 07:30; Stop 08/09/16 at 09:36; Status DC Non-Formulary Medication 100 mg DAILY PO Last administered on 08/13/16 10:02; Start 08/09/16 at 09:00; Stop 08/13/16 at 11:09; Status UNV Pantoprazole Sodium (Protonix Vial) 40 mg DAILYAC IVP Last administered on 08/15 10:04; Start 08/09/16 at 10:00 Iohexol (Omnipaque 300 Mg/ml) 75 ml 1X ONCE IV ; Start 08/09/16 at 14:00; Stop 08/09/16 at 14:01; Status DC Info (Do NOT chart on this entry -- for MONITORING) 1 each PRN DAILY PRN MC SEE COMMENTS; Start 08/09/16 at 14:00; Stop 08/11/16 at 13:59; Status DC Lactulose 20 gm BID PO Last administered on 08/11/16 10:27; Start 08/09/16 at 21:00; Stop 08/11/16 at 10:52; Status DC Lorazepam (Ativan) 2 mg PRN Q1HR PRN IV For CIWA 8-14 Last administered on 08/16 01:17; Start 08/09/16 at 20:45 Lorazepam (Ativan) 4 mg PRN Q1HR PRN IV For CIWA 15 or greater Last administered on 08/10/16 06:55; Start 08/09/16 at 20:45 Haloperidol Lactate (Haldol) 5 mg PRN Q4HRS PRN IVP Hallucinatns,Confusn, Delirium Last administered on 08/10/16 12:29; Start 08/09/16 at 20:45; Stop at 10:11; Status DC Metoprolol Tartrate (Lopressor) 5 mg PRN Q4HRS PRN IVP ELEVATED BP, SEE COMMENTS Last administered on 08/10/16 02:49; Start 08/09/16 at 22:15; Stop at 09:48; Status DC Diltiazem HCl (Cardizem) 5 mg 1X ONCE IVP Last administered on 08/10/16 08:22 ; Start 08/10/16 at 08:15; Stop 08/10/16 at 08:16; Status DC Metoprolol Tartrate (Lopressor) 5 mg Q6HRS PRN IVP ELEVATED BP, SEE COMMENTS; Start 08/10/16 at 09:45; Stop 08/10/16 at 10:05; Status DC Aspirin (Aspirin) 300 mg DAILY VT Last administered on 08/12/16 08:21; Start 08/10/16 at 09:45; Stop 08/12/16 at 11:14; Status DC Magnesium Sulfate/ Dextrose 50 ml @ 25 mls/hr 1X ONCE IV Last administered on 08/10/16 10:56; Start 08/10/16 at 10:00; Stop 08/10/16 at 11:59; Status DC Metoprolol Tartrate (Lopressor) 5 mg Q6HRS IVP Last administered on 08/12/16 05:00; Start 08/10/16 at 10:15; Stop 08/12/16 at 11:14; Status DC Enoxaparin Sodium (Lovenox 30mg Syringe) 30 mg Q24H SQ ; Start 08/10/16 at 15:00 ; Stop 08/10/16 at 15:00; Status DC Enoxaparin Sodium (Lovenox 40mg Syringe) 40 mg Q24H SQ Last administered on 15:34; Start 08/10/16 at 15:00 Acetaminophen (Tylenol) 650 mg PRN Q6HRS PRN PEG MILD PAIN / TEMP Last administered on 08/14/16 02:48; Start 08/10/16 at 23:45 Succinylcholine Chloride (Anectine) 200 mg STK-MED ONCE .ROUTE ; Start 08/11/16 at 01:30; Stop 08/11/16 at 01:31; Status DC Succinylcholine Chloride (Anectine) 200 mg STK-MED ONCE .ROUTE ; Start 08/11/16 at 01:30; Stop 08/11/16 at 08:48; Status DC Haloperidol Lactate (Haldol) 2.5 mg PRN Q4HRS PRN IVP Hallucinatns,Confusn, Delirium; Start 08/11/16 at 10:15 Potassium Chloride (KCl Oral Soln) 40 meq 1X ONCE PEG Last administered on 10:30; Start 08/11/16 at 10:30; Stop 08/11/16 at 10:31; Status DC Potassium Chloride (KCl Oral Soln) 40 meq 1X ONCE PEG Last administered on 16:00; Start 08/11/16 at 15:00; Stop 08/11/16 at 15:01; Status DC Digoxin (Lanoxin) 500 mcg 1X ONCE IV Last administered on 08/11/16 10:30; Start 08/11/16 at 10:30; Stop 08/11/16 at 10:31; Status DC Lactulose 20 gm QD PO Last administered on 08/14/16 09:54; Start 08/12/16 at 09:00; Stop 08/15/16 at 11:50; Status DC Phenylephrine HCl 20 mg/Sodium Chloride 252 ml @ 0 mls/hr 1X ONCE IV ; Start at 14:30; Stop 08/11/16 at 14:31; Status Cancel Magnesium Sulfate/ Dextrose 50 ml @ 25 mls/hr 1X ONCE IV Last administered on 08/12/16 09:32; Start 08/12/16 at 09:00; Stop 08/12/16 at 10:59; Status DC Magnesium Sulfate/ Dextrose 50 ml @ 25 mls/hr 1X ONCE IV Last administered on 08/12/16 17:56; Start 08/12/16 at 16:00; Stop 08/12/16 at 17:59; Status DC Potassium Chloride (KCl Oral Soln) 20 meq BID PEG Last administered on 21:52; Start 08/12/16 at 11:15; Stop 08/13/16 at 09:46; Status DC Diltiazem HCl (Cardizem) 60 mg Q6HRS PO Last administered on 08/16/16 05:49; Start 08/12/16 at 11:30 Metoprolol Tartrate (Lopressor) 25 mg BID FT Last administered on 08/12/16 21: 53; Start 08/12/16 at 21:00; Stop 08/13/16 at 09:46; Status DC Aspirin ([employer] Aspirin) 325 mg DAILYWBKFT FT Last administered on 08/15/16 10: 03; Start 08/13/16 at 08:00 Ceftriaxone Sodium 1 gm/ Sodium Chloride 50 ml @ 100 mls/hr Q24H IV Last administered on 08/15/16 17:34; Start 08/12/16 at 17:00 Metoprolol Tartrate (Lopressor) 50 mg BID FT Last administered on 08/15/16 21: 30; Start 08/13/16 at 10:00 Potassium Chloride (KCl Oral Soln) 20 meq TID PEG Last administered on 21:29; Start 08/13/16 at 10:00 Magnesium Sulfate/ Dextrose 50 ml @ 25 mls/hr 1X ONCE IV Last administered on 08/13/16 11:26; Start 08/13/16 at 10:00; Stop 08/13/16 at 11:59; Status DC Potassium Chloride (Klor-Con) 40 meq 1X ONCE PO ; Start 08/15/16 at 14:00; Stop 08/15/16 at 14:01; Status DC Active Scripts Active Lactulose 20 Gm/30 Ml Solution 20 Gm PO QODAY Ativan (Lorazepam) 0.5 Mg Tablet 0.5 Mg PO BID Diltiazem 24HR Cd (Diltiazem Hcl) 240 Mg Cap.er.24h 240 Mg PO DAILY Vitamin B-1 (Thiamine Hcl) 100 Mg Tablet 100 Mg PO DAILY Silex 5-325 Tablet (Acetaminophen/Hydrocodone Bitart) 1 Each Tablet 1 Tab PO PRN Q6HRS PRN Reported Omeprazole 20 Mg Capsule.dr 20 Mg PO DAILY Zofran Odt (Ondansetron) 8 Mg Tab.rapdis 1 Tab PO PRN Q8HRS PRN Bunavail 4.2-0.7 mg Film (Buprenorphine HCl/Naloxone HCl) 1 Each Film 1 Each BC DAILY Vitals/I & O Vital Sign - Last 24 Hours 08/15/16 08/15/16 08/15/16 08/15/16 12:03 12:42 14:52 16:14 Temp 98.0 98.0 Pulse 69 72 Resp 18 B/P (MAP) 151/93 144/79 (100) Pulse Ox 97 97 98 O2 Delivery Nasal Cannula Nasal Cannula Nasal Cannula O2 Flow Rate 2.0 2.0 2.0 08/15/16 08/15/16 08/15/16 08/15/16 17:34 19:20 20:05 21:30 Temp 98.7 98.7 Pulse 72 77 77 Resp 20 B/P (MAP) 144/79 135/77 (96) 135/77 Pulse Ox 97 98 O2 Delivery Nasal Cannula Nasal Cannula O2 Flow Rate 3.0 1.0 08/15/16 08/16/16 08/16/16 08/16/16 23:05 00:38 02:57 05:49 Temp 99.2 99.6 99.2 99.6 Pulse 68 68 71 76 Resp 20 24 B/P (MAP) 176/100 (125) 176/100 139/74 (95) 161/87 Pulse Ox 99 95 O2 Delivery Nasal Cannula Room Air O2 Flow Rate 3.0 08/16/16 08/16/16 08/16/16 08/16/16 05:49 07:15 07:27 11:01 Temp 98.9 98.9 Pulse 76 70 Resp 24 B/P (MAP) 161/87 (111) 139/85 (103) Pulse Ox 97 96 O2 Delivery Room Air Room Air Room Air 08/16/16 11:10 Temp 98.4 98.4 Pulse 79 Resp 26 B/P (MAP) 139/77 (97) Pulse Ox 96 O2 Delivery Room Air Intake and Output 08/15/16 08/15/16 08/16/16 15:00 23:00 07:00 Intake Total 140 ml 1140 ml 815 ml Output Total 650 ml 950 ml Balance 140 ml 490 ml -135 ml Nutrition Consultation Dietary Evaluation: Recommendations by RD: Increase Calorie Intake Comments: Rec. continue the TF's until able to pass speech evaluation Fibersource HN, goal rate 55 ml/hr start at 25 ml/hr, increase by 25 ml/hr q8h to goal rate flushes 140 cc q6h if no IVF's running Expected Outcomes/Goals: tolerate TF's at goal rate - met no further wt loss while in the hospital - met Malnutrition Findings: Food and Nutrition Intake (Mod: <75% est energy req 7days Reduced Grain Spouter Strength: N/A Reduced Grain Spouter Strength (Non-Sev: N/A Malnutrition related to morbid: No Weight Status: Underweight Fluid Accumulation (N/A): N/A JOAN GARDINER MD Aug 16, 2016 11:28
[2016-08-16] MEDS ORDERED: BARIUM SULFATE 40% (APPLE) 148 GM PWD. PO ONE (12:00)
--- NOTE | 2016-08-16 13:05 | RAD ---
Indication signs and symptoms of aspiration. With a member of the Department of speech pathology swallowing was evaluated. No spot fluoroscopic images were obtained. Fluoroscopy time associated with the study was 2.1 minutes. Initiation of swallowing was unremarkable. There were several episodes of flash penetration seen. There was considerable residual in the vallecula. With repetitive swallowing this material in the vallecula spilled over into the area of the anterior commissure. When the patient was prompted to cough this material cleared. No alex aspiration was seen. The deeply penetrated material included puree and liquids. See speech pathology notes for additional details. IMPRESSION: Deep penetration to the level of the anterior commissure with moderate amount of residual seen in the vallecula.
--- NOTE | 2016-08-16 13:39 | PDOC ---
Subjective: Subjective: Back pain. Objective: Objective: Per RN - pulled NG, failed swallow, plans for Dobhoff, mental status better. Vital Signs: Vital Signs Date Time Temp Pulse Resp B/P (MAP) Pulse Ox O2 Delivery O2 Flow Rate FiO2 08/16/16 11:10 98.4 79 26 139/77 (97) 96 Room Air 98.4 08/15/16 23:05 3.0 Labs: Laboratory Tests Test 08/16/16 03:11 White Blood Count 13.5 x10^3/uL Red Blood Count 3.55 x10^6/uL Hemoglobin 11.5 g/dL Hematocrit 34.0 % Mean Corpuscular Volume 96 fL Mean Corpuscular Hemoglobin 32 pg Mean Corpuscular Hemoglobin Concent 34 g/dL Red Cell Distribution Width 13.1 % Platelet Count 373 x10^3/uL Neutrophils (%) (Auto) 79 % Lymphocytes (%) (Auto) 9 % Monocytes (%) (Auto) 11 % Eosinophils (%) (Auto) 1 % Basophils (%) (Auto) 0 % Neutrophils # (Auto) 10.7 x10^3uL Lymphocytes # (Auto) 1.2 x10^3/uL Monocytes # (Auto) 1.4 x10^3/uL Eosinophils # (Auto) 0.1 x10^3/uL Basophils # (Auto) 0.0 x10^3/uL Imaging: Videoswalmehnaz IMPRESSION: Deep penetration to the level of the anterior commissure with moderate amount of residual seen in the vallecula. PE: GEN: NAD, laying on side LUNGS: clear HEART: S1S@ ABD: NABS, S/ND/NT NEURO/PSYCH: conversant A/P: Alcoholism, Hep C, encephalopathy -CT w/ fatty liver -on lactulose, PPI -pulled NG, failed swallow -- Mental status improved. Plans for Dobhoff, tube feeds. Note videoswallow. CHEN LAURENT Aug 16, 2016 13:39
--- NOTE | 2016-08-16 15:08 | PDOC ---
PULMONARY PROGRESS NOTES Subjective extubated 08/09 more alert, no pain, on 02, has cough Vitals Vital Signs Date Time Temp Pulse Resp B/P (MAP) Pulse Ox O2 Delivery O2 Flow Rate FiO2 08/16/16 15:00 100.5 93 24 140/82 (101) 98 Room Air 100.5 08/15/16 23:05 3.0 General: Alert, Confused HEENT: Other (nc at perrl, nose clear) Lungs: Clear, Other (decrease bs) Cardiovascular: S1, S2 Abdomen: Soft, Non-tender Neuro Exam: Alert Extremities: No Edema Skin: Warm Labs Laboratory Tests Test 08/14/16 17:35 08/15/16 03:30 08/16/16 03:11 Ammonia 21 mcmol/L (11-34) White Blood Count 10.9 x10^3/uL (4.0-11.0) 13.5 x10^3/uL (4.0-11.0) Red Blood Count 3.66 x10^6/uL (4.30-5.70) 3.55 x10^6/uL (4.30-5.70) Hemoglobin 12.0 g/dL (13.0-17.5) 11.5 g/dL (13.0-17.5) Hematocrit 35.4 % (39.0-53.0) 34.0 % (39.0-53.0) Mean Corpuscular Volume 97 fL (79-100) 96 fL (79-100) Mean Corpuscular Hemoglobin 33 pg (25-35) 32 pg (25-35) Mean Corpuscular Hemoglobin Concent 34 g/dL (31-37) 34 g/dL (31-37) Red Cell Distribution Width 13.3 % (11.5-14.5) 13.1 % (11.5-14.5) Platelet Count 256 x10^3/uL (140-400) 373 x10^3/uL (140-400) Neutrophils (%) (Auto) 79 % (31-73) 79 % (31-73) Lymphocytes (%) (Auto) 8 % (24-48) 9 % (24-48) Monocytes (%) (Auto) 12 % (0-9) 11 % (0-9) Eosinophils (%) (Auto) 1 % (0-3) 1 % (0-3) Basophils (%) (Auto) 0 % (0-3) 0 % (0-3) Neutrophils # (Auto) 8.5 x10^3uL (1.8-7.7) 10.7 x10^3uL (1.8-7.7) Lymphocytes # (Auto) 0.9 x10^3/uL (1.0-4.8) 1.2 x10^3/uL (1.0-4.8) Monocytes # (Auto) 1.3 x10^3/uL (0.0-1.1) 1.4 x10^3/uL (0.0-1.1) Eosinophils # (Auto) 0.1 x10^3/uL (0.0-0.7) 0.1 x10^3/uL (0.0-0.7) Basophils # (Auto) 0.0 x10^3/uL (0.0-0.2) 0.0 x10^3/uL (0.0-0.2) Sodium Level 138 mmol/L (136-145) Potassium Level 3.3 mmol/L (3.5-5.1) Chloride Level 104 mmol/L (98-107) Carbon Dioxide Level 23 mmol/L (21-32) Anion Gap 11 (6-14) Blood Urea Nitrogen 15 mg/dL (8-26) Creatinine 0.6 mg/dL (0.7-1.3) Estimated GFR (Cockcroft-Gault) 135.6 BUN/Creatinine Ratio 25 (6-20) Glucose Level 135 mg/dL (70-99) Calcium Level 8.4 mg/dL (8.5-10.1) Total Bilirubin 0.6 mg/dL (0.2-1.0) Aspartate Amino Transf (AST/SGOT) 55 U/L (15-37) Alanine Aminotransferase (ALT/SGPT) 74 U/L (16-63) Alkaline Phosphatase 70 U/L (46-116) Total Protein 6.5 g/dL (6.4-8.2) Albumin 2.2 g/dL (3.4-5.0) Albumin/Globulin Ratio 0.5 (1.0-1.7) Laboratory Tests Test 08/16/16 03:11 White Blood Count 13.5 x10^3/uL (4.0-11.0) Red Blood Count 3.55 x10^6/uL (4.30-5.70) Hemoglobin 11.5 g/dL (13.0-17.5) Hematocrit 34.0 % (39.0-53.0) Mean Corpuscular Volume 96 fL (79-100) Mean Corpuscular Hemoglobin 32 pg (25-35) Mean Corpuscular Hemoglobin Concent 34 g/dL (31-37) Red Cell Distribution Width 13.1 % (11.5-14.5) Platelet Count 373 x10^3/uL (140-400) Neutrophils (%) (Auto) 79 % (31-73) Lymphocytes (%) (Auto) 9 % (24-48) Monocytes (%) (Auto) 11 % (0-9) Eosinophils (%) (Auto) 1 % (0-3) Basophils (%) (Auto) 0 % (0-3) Neutrophils # (Auto) 10.7 x10^3uL (1.8-7.7) Lymphocytes # (Auto) 1.2 x10^3/uL (1.0-4.8) Monocytes # (Auto) 1.4 x10^3/uL (0.0-1.1) Eosinophils # (Auto) 0.1 x10^3/uL (0.0-0.7) Basophils # (Auto) 0.0 x10^3/uL (0.0-0.2) Medications Active Scripts Medications Dose Route/Sig Max Daily Dose Days Date Category Lactulose 20 Gm/30 Ml Solution 20 Gm PO QODAY 02/03/16 Rx Ativan (Lorazepam) 0.5 Mg Tablet 0.5 Mg PO BID 02/03/16 Rx Diltiazem 24HR Cd (Diltiazem Hcl) 240 Mg Cap.er.24h 240 Mg PO DAILY 02/03/16 Rx Vitamin B-1 (Thiamine Hcl) 100 Mg Tablet 100 Mg PO DAILY 02/03/16 Rx Omeprazole 20 Mg Capsule.dr 20 Mg PO DAILY 01/31/16 Reported Zofran Odt (Ondansetron) 8 Mg Tab.rapdis 1 Tab PO PRN Q8HRS PRN 01/31/16 Reported [place] 4.2-0.7 mg Film (Buprenorphine HCl/Naloxone HCl) 1 Each Film 1 Each BC DAILY 01/31/16 Reported [place] 5-325 Tablet (Acetaminophen/Hydrocodone Bitart) 1 Each Tablet 1 Tab PO PRN Q6HRS PRN 12/01/15 Rx Impression . 1. Acute respiratory failure secondary to seizures. extubated 08/09 2. s/p Status epilepticus. 3. Positive drug screen for cannabinoids. 4. Lactic acidosis related to seizures. 5. Hepatitis. 6. encephalopathy, due to above 7. Fever, improved.repeat CXR 08/12 with mild infra hilar atelectasis Plan . 1. 02 titration 2. Follow Neurology input. 3. CT chest for pulmonary embolism revealed a 7 mm bullae in LLL, need fu ct in 3 mo 4. EEG done 5 NPO 6. antibiotics D/W RANCHO Morales MD Aug 16, 2016 15:08
--- NOTE | 2016-08-16 15:46 | RAD ---
Indication assess Dobbhoff feeding tube placement. A single view targeted to the lower chest and upper abdomen was obtained. A Dobbhoff feeding tube has its tip near the GE junction. The tube should be advanced. IMPRESSION: Dobbhoff feeding tube with its tip near the GE junction. The tube should be advanced
--- NOTE | 2016-08-16 16:28 | RAD ---
Examination: Single frontal view of the abdomen History: History of Dobbhoff placement Comparison: Same day exam 3:38 PM Findings: The Dobbhoff feeding tube tip now projects in the left upper quadrant of the abdomen likely in the fundus of the stomach. Impression: Dobbhoff feeding tube in place with the tip now projecting in the left upper quadrant abdomen likely within the fundus of the stomach.
[2016-08-16] MEDS: ACETAMINOPHEN 650 MG/20.3 ML SOLUTION. PEG PRN (16:51)
[2016-08-16] MEDS: ENOXAPARIN 40 MG/0.4 ML SYRINGE. SQ SCH (16:52)
[2016-08-16] MEDS: ASPIRIN 325 MG TABLET FT SCH (16:52)
[2016-08-16] MEDS: PANTOPRAZOLE IV PUSH 40 MG VIAL. IVP SCH (16:53)
[2016-08-16] MEDS: MULTIVIT INFUSN,ADULT 4,VIT K 10 ML, FOLIC ACID 1 MG, THIAMINE 100 MG in IV NORMAL SALI... IV SCH (16:53)
--- NOTE | 2016-08-16 17:13 | PDOC ---
PROGRESS NOTES Assessment Assessment Seizure x 2 on 08/08/16, alcohol related. Metabolic encephalopathy. Toxic encephalopathy. Respiratory failure. Tiny right frontal and parietal junction infract. Alcoholic. Lactic acidosis. HCV Cannabinoids positive. RECOMMENDATIONS/PLAN: Continue Keppra 500 mg bid, will taper it off in 2 weeks. Continue ASA daily. Treat medical diseases. OT/PT EEG on 08/10/16 showed diffuse encephalopathy. Brain MRI: Tiny infract in right frontal and parietal junction. PAST MEDICAL HISTORY: Hep C cirrhosis, alcoholism, chronic nausea, vomiting, abdominal pain and narcotic addiction. FAMILY HISTORY: Unknown. SOCIAL HISTORY: Lives with his . Heavy alcohol 8-10 beers and wine a day x 40 years. Smoking 2 packs a day x 40 years. Marijuana use. ALLERGIES: No known drug allergies. REVIEW OF SYSTEMS: Constitutional: Mild malnutrition. Head: No recent traumatic brain or head injury. Skin: No edema, or rash. Ear: No infection, tinnitus. Eyes: No vision loss, or diplopia. Nose: No bleeding or purulent discharges. Hearing: No hearing decrease. Neck: No injury. Cardiac: No TN Pulmonary: No pneumonia. GI: No GI Ulcer, GI bleeding Urinary/genital: No dysuria, hematuria, incontinence. Endocrine: No cousin face, craniofacial dysmorphism, polydactyly. Skeletomuscular: No muscular atrophy, deformity. Neurological: see HP. Psychiatric:Alcohol, smoking, marijuana. Otherwise, not [id number] review of systems. PHYSICAL EXAMINATION: General appearance in subacute distress. HEENT: Normocephalic and nontraumatic. Eyes, nose, ears, and throat are unremarkable. Neck is supple. No lymphadenopathy. No Crepitus. Cardiovascular: S1, S2, regular rate and rhythm. Pulmonary: relative clear to auscultation bilaterally. Abdomen: Bowel sounds are positive. Abdomen is soft, nontender, and nondistended. Extremities: No rash, lesions, or edema. No restriction of range of motion NEUROLOGICAL EXAMINATION: Awake. Not oriented to time, but knows place and person. PERRL. EOMI. CN: no focal findings. Muscle tone: within normal. Muscle strength: 4-5 DTR: 2 Plantar reflex: Neutral response bilaterally Gait: Not examed in bed. Sensory exam: No acute deficits found. Not acute cerebellar signs elicited. Objective Objective Vital Signs Date Time Temp Pulse Resp B/P (MAP) Pulse Ox O2 Delivery O2 Flow Rate FiO2 08/16/16 15:28 Room Air 08/16/16 15:00 100.5 93 24 140/82 (101) 98 100.5 08/15/16 23:05 3.0 Intake and Output 08/16/16 07:00 Intake Total 2095 ml Output Total 1600 ml Balance 495 ml IV Total 1000 ml Tube Feeding 595 ml Other 500 ml Output Urine Total 1600 ml # Bowel Movements 3 Vitals Signs Vitals VS - Last 72 Hours, by Label Date Time Temp Pulse Resp B/P (MAP) Pulse Ox O2 Delivery O2 Flow Rate FiO2 08/16/16 15:28 Room Air 08/16/16 15:00 100.5 93 24 140/82 (101) 98 Room Air 100.5 08/16/16 11:10 98.4 79 26 139/77 (97) 96 Room Air 98.4 08/16/16 11:01 Room Air 08/16/16 07:27 96 Room Air 08/16/16 07:15 98.9 70 24 139/85 (103) 97 Room Air 98.9 08/16/16 05:49 76 161/87 (111) 08/16/16 05:49 76 161/87 08/16/16 02:57 99.6 71 24 139/74 (95) 95 Room Air 99.6 08/16/16 00:38 68 176/100 08/15/16 23:05 99.2 68 20 176/100 (125) 99 Nasal Cannula 3.0 99.2 08/15/16 21:30 77 135/77 08/15/16 20:05 98 Nasal Cannula 1.0 08/15/16 19:20 98.7 77 20 135/77 (96) 97 Nasal Cannula 3.0 98.7 08/15/16 17:34 72 144/79 08/15/16 16:14 98 Nasal Cannula 2.0 08/15/16 14:52 98.0 72 18 144/79 (100) 97 Nasal Cannula 2.0 98.0 08/15/16 12:42 69 151/93 08/15/16 12:03 97 Nasal Cannula 2.0 08/15/16 11:00 98.7 74 20 147/80 (102) 99 Nasal Cannula 2.0 98.7 08/15/16 10:19 79 147/80 6/18/17 07:41 Nasal Cannula 2.0 08/15/16 07:38 97 Nasal Cannula 2.0 08/15/16 07:00 98.6 74 20 153/90 (111) 97 Nasal Cannula 2.0 98.6 Laboratory Laboratory Laboratory Tests Test 08/16/16 03:11 White Blood Count 13.5 x10^3/uL (4.0-11.0) Red Blood Count 3.55 x10^6/uL (4.30-5.70) Hemoglobin 11.5 g/dL (13.0-17.5) Hematocrit 34.0 % (39.0-53.0) Mean Corpuscular Volume 96 fL (79-100) Mean Corpuscular Hemoglobin 32 pg (25-35) Mean Corpuscular Hemoglobin Concent 34 g/dL (31-37) Red Cell Distribution Width 13.1 % (11.5-14.5) Platelet Count 373 x10^3/uL (140-400) Neutrophils (%) (Auto) 79 % (31-73) Lymphocytes (%) (Auto) 9 % (24-48) Monocytes (%) (Auto) 11 % (0-9) Eosinophils (%) (Auto) 1 % (0-3) Basophils (%) (Auto) 0 % (0-3) Neutrophils # (Auto) 10.7 x10^3uL (1.8-7.7) Lymphocytes # (Auto) 1.2 x10^3/uL (1.0-4.8) Monocytes # (Auto) 1.4 x10^3/uL (0.0-1.1) Eosinophils # (Auto) 0.1 x10^3/uL (0.0-0.7) Basophils # (Auto) 0.0 x10^3/uL (0.0-0.2) Microbiology 08/11/16 Blood Culture - Final, Complete NO GROWTH AFTER 5 DAYS 08/11/16 Urine Culture - Final, Complete 08/11/16 Urine Culture Result 1 (JENNY) - Final, Complete 08/11/16 Antimicrobic Susceptibility - Final, Complete Medication Medications Current Medications Barium Sulfate (Varibar Thin Liquid Apple) 148 gm 1X ONCE PO Last administered on 08/16/16t 12:55; Start 6/19/17 at 12:00; Stop 08/16/16 at 12:01 ; Status DC Comment Review of Relevant I have reviewed the following items chikis (where applicable) has been applied. ADONIS HUITRON MD Aug 16, 2016 17:13
[2016-08-17] MEDS: dilTIAZem HCL 30 MG TABLET PO SCH ×4 (00:42→18:02)
[2016-08-17] MEDS: ACETAMINOPHEN 650 MG/20.3 ML SOLUTION. PEG PRN ×3 (00:52→14:59)
[2016-08-17 02:46] VITALS: BP 143/82
[2016-08-17 04:30] LABS: BASO % 0 % (0-3); EOS % 2 % (0-3); HEMATOCRIT 32.9 % (39.0-53.0); HEMOGLOBIN 11.2 g/dL (13.0-17.5); LYMPH # 0.9 x10^3/uL (1.0-4.8); LYMPH % 9 % (24-48); MEAN CORPUSCULAR HEMOGLOBIN 33 pg (25-35); MEAN CORPUSCULAR HGB CONC 34 g/dL (31-37); MEAN CORPUSCULAR VOLUME 96 fL (79-100); MONO % 11 % (0-9); NEUT % 78 % (31-73); PLATELET COUNT 443 x10^3/uL (140-400); RED BLOOD COUNT 3.44 x10^6/uL (4.30-5.70); RED CELL DISTRIBUTION WIDTH 13.4 % (11.5-14.5); WHITE BLOOD COUNT 10.4 x10^3/uL (4.0-11.0)
[2016-08-17 07:00] VITALS: BP 135/69
[2016-08-17] MEDS: IPRATROPIUM BROMIDE 0.5 MG/2.5 ML NEBU. NEB SCH ×4 (07:02→19:48)
[2016-08-17] MEDS: POTASSIUM CHLORIDE 20 MEQ/15 ML ORAL LIQUID. PEG SCH ×3 (08:51→20:15)
[2016-08-17] MEDS: levETIRAcetam 500 MG TABLET PO SCH ×2 (08:51→20:16)
[2016-08-17] MEDS: ASPIRIN 325 MG TABLET FT SCH (08:51)
[2016-08-17] MEDS: METOPROLOL TART IMMED RELEASE 25 MG TABLET. FT SCH ×2 (08:52→20:16)
[2016-08-17] MEDS: PANTOPRAZOLE IV PUSH 40 MG VIAL. IVP SCH (08:53)
--- NOTE | 2016-08-17 08:54 | PDOC ---
PULMONARY PROGRESS NOTES Subjective extubated 08/09 NO RESP COMPLAINTS Vitals Vital Signs Date Time Temp Pulse Resp B/P (MAP) Pulse Ox O2 Delivery O2 Flow Rate FiO2 08/17/16 07:04 99 Room Air 08/17/16 07:00 99.0 69 20 135/69 (91) 99.0 General: Alert HEENT: Other (nc at perrl, nose clear) Lungs: Clear, Other (decrease bs) Cardiovascular: S1, S2 Abdomen: Soft, Non-tender Neuro Exam: Alert Extremities: No Edema Skin: Warm Labs Laboratory Tests Test 08/16/16 03:11 08/17/16 04:15 White Blood Count 13.5 x10^3/uL (4.0-11.0) 10.4 x10^3/uL (4.0-11.0) Red Blood Count 3.55 x10^6/uL (4.30-5.70) 3.44 x10^6/uL (4.30-5.70) Hemoglobin 11.5 g/dL (13.0-17.5) 11.2 g/dL (13.0-17.5) Hematocrit 34.0 % (39.0-53.0) 32.9 % (39.0-53.0) Mean Corpuscular Volume 96 fL (79-100) 96 fL (79-100) Mean Corpuscular Hemoglobin 32 pg (25-35) 33 pg (25-35) Mean Corpuscular Hemoglobin Concent 34 g/dL (31-37) 34 g/dL (31-37) Red Cell Distribution Width 13.1 % (11.5-14.5) 13.4 % (11.5-14.5) Platelet Count 373 x10^3/uL (140-400) 443 x10^3/uL (140-400) Neutrophils (%) (Auto) 79 % (31-73) 78 % (31-73) Lymphocytes (%) (Auto) 9 % (24-48) 9 % (24-48) Monocytes (%) (Auto) 11 % (0-9) 11 % (0-9) Eosinophils (%) (Auto) 1 % (0-3) 2 % (0-3) Basophils (%) (Auto) 0 % (0-3) 0 % (0-3) Neutrophils # (Auto) 10.7 x10^3uL (1.8-7.7) 8.1 x10^3uL (1.8-7.7) Lymphocytes # (Auto) 1.2 x10^3/uL (1.0-4.8) 0.9 x10^3/uL (1.0-4.8) Monocytes # (Auto) 1.4 x10^3/uL (0.0-1.1) 1.2 x10^3/uL (0.0-1.1) Eosinophils # (Auto) 0.1 x10^3/uL (0.0-0.7) 0.2 x10^3/uL (0.0-0.7) Basophils # (Auto) 0.0 x10^3/uL (0.0-0.2) 0.0 x10^3/uL (0.0-0.2) Laboratory Tests Test 08/17/16 04:15 White Blood Count 10.4 x10^3/uL (4.0-11.0) Red Blood Count 3.44 x10^6/uL (4.30-5.70) Hemoglobin 11.2 g/dL (13.0-17.5) Hematocrit 32.9 % (39.0-53.0) Mean Corpuscular Volume 96 fL (79-100) Mean Corpuscular Hemoglobin 33 pg (25-35) Mean Corpuscular Hemoglobin Concent 34 g/dL (31-37) Red Cell Distribution Width 13.4 % (11.5-14.5) Platelet Count 443 x10^3/uL (140-400) Neutrophils (%) (Auto) 78 % (31-73) Lymphocytes (%) (Auto) 9 % (24-48) Monocytes (%) (Auto) 11 % (0-9) Eosinophils (%) (Auto) 2 % (0-3) Basophils (%) (Auto) 0 % (0-3) Neutrophils # (Auto) 8.1 x10^3uL (1.8-7.7) Lymphocytes # (Auto) 0.9 x10^3/uL (1.0-4.8) Monocytes # (Auto) 1.2 x10^3/uL (0.0-1.1) Eosinophils # (Auto) 0.2 x10^3/uL (0.0-0.7) Basophils # (Auto) 0.0 x10^3/uL (0.0-0.2) Medications Active Scripts Medications Dose Route/Sig Max Daily Dose Days Date Category Lactulose 20 Gm/30 Ml Solution 20 Gm PO QODAY 02/03/16 Rx Ativan (Lorazepam) 0.5 Mg Tablet 0.5 Mg PO BID 02/03/16 Rx Diltiazem 24HR Cd (Diltiazem Hcl) 240 Mg Cap.er.24h 240 Mg PO DAILY 02/03/16 Rx Vitamin B-1 (Thiamine Hcl) 100 Mg Tablet 100 Mg PO DAILY 02/03/16 Rx Omeprazole 20 Mg Capsule.dr 20 Mg PO DAILY 01/31/16 Reported Zofran Odt (Ondansetron) 8 Mg Tab.rapdis 1 Tab PO PRN Q8HRS PRN 01/31/16 Reported [place] 4.2-0.7 mg Film (Buprenorphine HCl/Naloxone HCl) 1 Each Film 1 Each BC DAILY 01/31/16 Reported Herrin 5-325 Tablet (Acetaminophen/Hydrocodone Bitart) 1 Each Tablet 1 Tab PO PRN Q6HRS PRN 12/01/15 Rx Impression . 1. Acute respiratory failure secondary to seizures. extubated 08/09 2. s/p Status epilepticus. 3. Positive drug screen for cannabinoids. 4. Lactic acidosis related to seizures. 5. Hepatitis. 6. encephalopathy, due to above 7. Fever, improved.repeat CXR 08/12 with mild infra hilar atelectasis Plan . WILL SIGN OFF CALL IF NEEDED D/C ANTIBX RANCHO WOODY MD Aug 17, 2016 08:54
--- NOTE | 2016-08-17 10:32 | PDOC ---
PROGRESS NOTES Chief Complaint Chief Complaint cc: seizure like activity A/P Acute hypoxic respiratory failure: Extubated 08/09, on NC Hepatic encephalopathy, persistent: Alert but not oriented to time, Possible alcohol withdrawal seizures: on CIWA protocol, prn Ativan, Chronic alcoholism Physical debility and weakness. , Paroxysmal, Afib: on Cardizem, rate controlled. Oropharyngeal dysphagia: , tube feeds. failed speech, repeat bedside swallow in AM Hypokalemia: replaced, Hx hep C Prognosis guarded. PT/OT Disposition: SNU VS ACUTE REHAB History of Present Illness History of Present Illness confused Vitals Vitals Vital Signs Date Time Temp Pulse Resp B/P (MAP) Pulse Ox O2 Delivery O2 Flow Rate FiO2 08/17/16 08:52 68 144/82 08/17/16 07:04 99 Room Air 08/17/16 07:00 99.0 20 99.0 Physical Exam General: Alert, No acute distress, Other (not oritend to time) Heart: Normal S1, Normal S2, No murmurs Lungs: Clear, Other (decrease bs) Abdomen: Normal bowel sounds Extremities: No edema, Normal pulses Skin: No rashes Labs LABS Laboratory Tests Test 08/17/16 04:15 White Blood Count 10.4 x10^3/uL (4.0-11.0) Red Blood Count 3.44 x10^6/uL (4.30-5.70) Hemoglobin 11.2 g/dL (13.0-17.5) Hematocrit 32.9 % (39.0-53.0) Mean Corpuscular Volume 96 fL (79-100) Mean Corpuscular Hemoglobin 33 pg (25-35) Mean Corpuscular Hemoglobin Concent 34 g/dL (31-37) Red Cell Distribution Width 13.4 % (11.5-14.5) Platelet Count 443 x10^3/uL (140-400) Neutrophils (%) (Auto) 78 % (31-73) Lymphocytes (%) (Auto) 9 % (24-48) Monocytes (%) (Auto) 11 % (0-9) Eosinophils (%) (Auto) 2 % (0-3) Basophils (%) (Auto) 0 % (0-3) Neutrophils # (Auto) 8.1 x10^3uL (1.8-7.7) Lymphocytes # (Auto) 0.9 x10^3/uL (1.0-4.8) Monocytes # (Auto) 1.2 x10^3/uL (0.0-1.1) Eosinophils # (Auto) 0.2 x10^3/uL (0.0-0.7) Basophils # (Auto) 0.0 x10^3/uL (0.0-0.2) Assessment and Plan Assessmemt and Plan Problems Medical Problems: (1) Alcohol withdrawal Status: Acute (2) Hepatic encephalopathy Status: Acute (3) Lactic acid acidosis Status: Acute (4) Respiratory failure Status: Acute Problems: Comment Review of Relevant I have reviewed the following items chikis (where applicable) has been applied. Labs Laboratory Tests Test 08/16/16 03:11 08/17/16 04:15 White Blood Count 13.5 x10^3/uL (4.0-11.0) 10.4 x10^3/uL (4.0-11.0) Red Blood Count 3.55 x10^6/uL (4.30-5.70) 3.44 x10^6/uL (4.30-5.70) Hemoglobin 11.5 g/dL (13.0-17.5) 11.2 g/dL (13.0-17.5) Hematocrit 34.0 % (39.0-53.0) 32.9 % (39.0-53.0) Mean Corpuscular Volume 96 fL (79-100) 96 fL (79-100) Mean Corpuscular Hemoglobin 32 pg (25-35) 33 pg (25-35) Mean Corpuscular Hemoglobin Concent 34 g/dL (31-37) 34 g/dL (31-37) Red Cell Distribution Width 13.1 % (11.5-14.5) 13.4 % (11.5-14.5) Platelet Count 373 x10^3/uL (140-400) 443 x10^3/uL (140-400) Neutrophils (%) (Auto) 79 % (31-73) 78 % (31-73) Lymphocytes (%) (Auto) 9 % (24-48) 9 % (24-48) Monocytes (%) (Auto) 11 % (0-9) 11 % (0-9) Eosinophils (%) (Auto) 1 % (0-3) 2 % (0-3) Basophils (%) (Auto) 0 % (0-3) 0 % (0-3) Neutrophils # (Auto) 10.7 x10^3uL (1.8-7.7) 8.1 x10^3uL (1.8-7.7) Lymphocytes # (Auto) 1.2 x10^3/uL (1.0-4.8) 0.9 x10^3/uL (1.0-4.8) Monocytes # (Auto) 1.4 x10^3/uL (0.0-1.1) 1.2 x10^3/uL (0.0-1.1) Eosinophils # (Auto) 0.1 x10^3/uL (0.0-0.7) 0.2 x10^3/uL (0.0-0.7) Basophils # (Auto) 0.0 x10^3/uL (0.0-0.2) 0.0 x10^3/uL (0.0-0.2) Laboratory Tests Test 08/17/16 04:15 White Blood Count 10.4 x10^3/uL (4.0-11.0) Red Blood Count 3.44 x10^6/uL (4.30-5.70) Hemoglobin 11.2 g/dL (13.0-17.5) Hematocrit 32.9 % (39.0-53.0) Mean Corpuscular Volume 96 fL (79-100) Mean Corpuscular Hemoglobin 33 pg (25-35) Mean Corpuscular Hemoglobin Concent 34 g/dL (31-37) Red Cell Distribution Width 13.4 % (11.5-14.5) Platelet Count 443 x10^3/uL (140-400) Neutrophils (%) (Auto) 78 % (31-73) Lymphocytes (%) (Auto) 9 % (24-48) Monocytes (%) (Auto) 11 % (0-9) Eosinophils (%) (Auto) 2 % (0-3) Basophils (%) (Auto) 0 % (0-3) Neutrophils # (Auto) 8.1 x10^3uL (1.8-7.7) Lymphocytes # (Auto) 0.9 x10^3/uL (1.0-4.8) Monocytes # (Auto) 1.2 x10^3/uL (0.0-1.1) Eosinophils # (Auto) 0.2 x10^3/uL (0.0-0.7) Basophils # (Auto) 0.0 x10^3/uL (0.0-0.2) Microbiology 08/11/16 Blood Culture - Final, Complete NO GROWTH AFTER 5 DAYS 08/11/16 Urine Culture - Final, Complete 08/11/16 Urine Culture Result 1 (JENNY) - Final, Complete 08/11/16 Antimicrobic Susceptibility - Final, Complete Medications Current Medications Diltiazem HCl (Cardizem) 25 mg STK-MED ONCE .ROUTE ; Start 08/08/16 at 10:37; Stop 08/08/16 at 10:38; Status DC Diltiazem HCl 125 mg/Dextrose 125 ml @ 0 mls/hr CONT PRN IV SEE I/O RECORD Last administered on 08/12/16 06:20; Start 08/08/16 at 11:00; Stop 08/12/16 at 12:30; Status DC Diltiazem HCl (Cardizem) 20 mg 1X ONCE IVP Last administered on 08/08/16 10: 40; Start 08/08/16 at 11:00; Stop 08/08/16 at 11:01; Status DC Lorazepam (Ativan) 2 mg STK-MED ONCE .ROUTE ; Start 08/08/16 at 10:55; Stop 01/14 at 10:56; Status DC Iohexol (Omnipaque 350 Mg/ml) 90 ml 1X ONCE IV Last administered on 08/08/16 11:15; Start 08/08/16 at 11:15; Stop 08/08/16 at 11:16; Status DC Propofol 20 ml @ 0 mls/hr 1X ONCE IV Last administered on 08/08/16 11:20; Start 08/08/16 at 11:15; Stop 08/08/16 at 11:16; Status DC Info (Do NOT chart on this entry -- for MONITORING) 1 each PRN DAILY PRN MC SEE COMMENTS; Start 08/08/16 at 11:15; Stop 08/10/16 at 09:37; Status DC Fentanyl Citrate (Fentanyl 2ml Vial) 100 mcg 1X ONCE IV Last administered on 11:03; Start 08/08/16 at 11:15; Stop 08/08/16 at 11:16; Status DC Fentanyl Citrate (Fentanyl 2ml Vial) 100 mcg 1X ONCE IV Last administered on 11:16; Start 08/08/16 at 11:15; Stop 08/08/16 at 11:16; Status DC Propofol 50 ml @ As Directed STK-MED ONCE IV ; Start 08/08/16 at 11:17; Stop 01/14 at 11:18; Status DC Ondansetron HCl (Zofran) 4 mg PRN Q8HRS PRN IV NAUSEA/VOMITING; Start 08/08/16 at 11:30; Stop 08/09/16 at 11:29; Status DC Fentanyl Citrate (Fentanyl 2ml Vial) 50 mcg PRN Q2HR PRN IV PAIN Last administered on 08/08/16 13:16; Start 08/08/16 at 11:30; Stop 08/09/16 at 11:29 ; Status DC Levetiracetam 1000 mg/Sodium Chloride 110 ml @ 440 mls/hr 1X ONCE IV Last administered on 08/08/16 11:39; Start 08/08/16 at 11:45; Stop 08/08/16 at 11:59 ; Status DC Fentanyl Citrate (Fentanyl 2ml Vial) 100 mcg 1X ONCE IV ; Start 08/08/16 at 11: 45; Stop 08/08/16 at 11:46; Status DC Propofol 50 ml @ As Directed STK-MED ONCE IV ; Start 08/08/16 at 12:09; Stop 01/14 at 12:10; Status DC Lorazepam (Ativan) 2 mg 1X ONCE IV ; Start 08/08/16 at 13:00; Stop 08/08/16 at 13:01; Status DC Succinylcholine Chloride (Anectine) 100 mg 1X ONCE IV ; Start 08/08/16 at 13:00 ; Stop 08/08/16 at 13:01; Status DC Etomidate (Amidate) 20 mg 1X ONCE IV ; Start 08/08/16 at 13:00; Stop 08/08/16 at 13:01; Status DC Propofol 100 ml @ 0 mls/hr CONT PRN IV PER PROTOCOL Last administered on 09:08; Start 08/08/16 at 13:45; Stop 08/11/16 at 10:11; Status DC Fentanyl Citrate (Fentanyl 2ml Vial) 50 mcg PRN Q1HR PRN IV COMM; Start at 13:45 Chlorhexidine Gluconate (Peridex) 15 ml BID MM Last administered on 08/09/16 09:08; Start 08/08/16 at 21:00; Stop 08/10/16 at 08:29; Status DC Ipratropium Randolph (Atrovent) 0.5 mg RTQID NEB Last administered on 08/17/16 07:02; Start 08/08/16 at 16:00 Metoprolol Tartrate (Lopressor) 12.5 mg BID PO Last administered on 08/08/16 21:51; Start 08/08/16 at 14:30; Stop 08/10/16 at 09:48; Status DC Lorazepam (Ativan) 1 mg PRN Q4HRS PRN IV ANXIETY / AGITATION Last administered on 08/16/16 21:25; Start 08/08/16 at 14:45 Levetiracetam (Keppra) 500 mg Q12HR PO Last administered on 08/15/16 21:30; Start 08/08/16 at 21:00; Stop 08/16/16 at 17:14; Status DC Multivitamins 10 ml/Folic Acid 1 mg/Thiamine HCl 100 mg/Sodium Chloride 1,011.2 ml @ 100 mls/ hr Q24H IV Last administered on 08/16/16 16:53; Start 08/08/16 at 16:00 Lorazepam (Ativan) 2 mg PRN Q4HRS PRN IV ANXIETY / AGITATION Last administered on 08/10/16 11:11; Start 08/08/16 at 15:15; Stop 08/13/16 at 11:08; Status DC Aspirin (Zunilda Aspirin) 325 mg DAILY PO Last administered on 08/09/16 09:09; Start 08/09/16 at 09:00; Stop 08/10/16 at 09:48; Status DC Diltiazem HCl (Cardizem 24hr Cd) 240 mg DAILY PO ; Start 08/09/16 at 09:00; Stop 08/10/16 at 09:48; Status DC Lactulose 20 gm Q48H PO Last administered on 08/09/16 09:13; Start 08/09/16 at 09:00; Stop 08/09/16 at 16:32; Status DC Pantoprazole Sodium (Protonix) 40 mg DAILYAC PO ; Start 08/09/16 at 07:30; Stop 08/09/16 at 09:36; Status DC Non-Formulary Medication 100 mg DAILY PO Last administered on 08/13/16 10:02; Start 08/09/16 at 09:00; Stop 08/13/16 at 11:09; Status UNV Pantoprazole Sodium (Protonix Vial) 40 mg DAILYAC IVP Last administered on 08/17 08:53; Start 08/09/16 at 10:00 Iohexol (Omnipaque 300 Mg/ml) 75 ml 1X ONCE IV ; Start 08/09/16 at 14:00; Stop 08/09/16 at 14:01; Status DC Info (Do NOT chart on this entry -- for MONITORING) 1 each PRN DAILY PRN MC SEE COMMENTS; Start 08/09/16 at 14:00; Stop 08/11/16 at 13:59; Status DC Lactulose 20 gm BID PO Last administered on 08/11/16 10:27; Start 08/09/16 at 21:00; Stop 08/11/16 at 10:52; Status DC Lorazepam (Ativan) 2 mg PRN Q1HR PRN IV For CIWA 8-14 Last administered on 08/16 01:17; Start 08/09/16 at 20:45 Lorazepam (Ativan) 4 mg PRN Q1HR PRN IV For CIWA 15 or greater Last administered on 08/10/16 06:55; Start 08/09/16 at 20:45 Haloperidol Lactate (Haldol) 5 mg PRN Q4HRS PRN IVP Hallucinatns,Confusn, Delirium Last administered on 08/10/16 12:29; Start 08/09/16 at 20:45; Stop at 10:11; Status DC Metoprolol Tartrate (Lopressor) 5 mg PRN Q4HRS PRN IVP ELEVATED BP, SEE COMMENTS Last administered on 08/10/16 02:49; Start 08/09/16 at 22:15; Stop at 09:48; Status DC Diltiazem HCl (Cardizem) 5 mg 1X ONCE IVP Last administered on 08/10/16 08:22 ; Start 08/10/16 at 08:15; Stop 08/10/16 at 08:16; Status DC Metoprolol Tartrate (Lopressor) 5 mg Q6HRS PRN IVP ELEVATED BP, SEE COMMENTS; Start 08/10/16 at 09:45; Stop 08/10/16 at 10:05; Status DC Aspirin (Aspirin) 300 mg DAILY [place] Last administered on 08/12/16 08:21; Start 08/10/16 at 09:45; Stop 08/12/16 at 11:14; Status DC Magnesium Sulfate/ Dextrose 50 ml @ 25 mls/hr 1X ONCE IV Last administered on 08/10/16 10:56; Start 08/10/16 at 10:00; Stop 08/10/16 at 11:59; Status DC Metoprolol Tartrate (Lopressor) 5 mg Q6HRS IVP Last administered on 08/12/16 05:00; Start 08/10/16 at 10:15; Stop 08/12/16 at 11:14; Status DC Enoxaparin Sodium (Lovenox 30mg Syringe) 30 mg Q24H SQ ; Start 08/10/16 at 15:00 ; Stop 08/10/16 at 15:00; Status DC Enoxaparin Sodium (Lovenox 40mg Syringe) 40 mg Q24H SQ Last administered on 16:52; Start 08/10/16 at 15:00 Acetaminophen (Tylenol) 650 mg PRN Q6HRS PRN PEG MILD PAIN / TEMP Last administered on 08/17/16 08:51; Start 08/10/16 at 23:45 Succinylcholine Chloride (Anectine) 200 mg STK-MED ONCE .ROUTE ; Start 08/11/16 at 01:30; Stop 08/11/16 at 01:31; Status DC Succinylcholine Chloride (Anectine) 200 mg STK-MED ONCE .ROUTE ; Start 08/11/16 at 01:30; Stop 08/11/16 at 08:48; Status DC Haloperidol Lactate (Haldol) 2.5 mg PRN Q4HRS PRN IVP Hallucinatns,Confusn, Delirium; Start 08/11/16 at 10:15 Potassium Chloride (KCl Oral Soln) 40 meq 1X ONCE PEG Last administered on 10:30; Start 08/11/16 at 10:30; Stop 08/11/16 at 10:31; Status DC Potassium Chloride (KCl Oral Soln) 40 meq 1X ONCE PEG Last administered on 16:00; Start 08/11/16 at 15:00; Stop 08/11/16 at 15:01; Status DC Digoxin (Lanoxin) 500 mcg 1X ONCE IV Last administered on 08/11/16 10:30; Start 08/11/16 at 10:30; Stop 08/11/16 at 10:31; Status DC Lactulose 20 gm QD PO Last administered on 08/14/16 09:54; Start 08/12/16 at 09:00; Stop 08/15/16 at 11:50; Status DC Phenylephrine HCl 20 mg/Sodium Chloride 252 ml @ 0 mls/hr 1X ONCE IV ; Start at 14:30; Stop 08/11/16 at 14:31; Status Cancel Magnesium Sulfate/ Dextrose 50 ml @ 25 mls/hr 1X ONCE IV Last administered on 08/12/16 09:32; Start 08/12/16 at 09:00; Stop 08/12/16 at 10:59; Status DC Magnesium Sulfate/ Dextrose 50 ml @ 25 mls/hr 1X ONCE IV Last administered on 08/12/16 17:56; Start 08/12/16 at 16:00; Stop 08/12/16 at 17:59; Status DC Potassium Chloride (KCl Oral Soln) 20 meq BID PEG Last administered on 21:52; Start 08/12/16 at 11:15; Stop 08/13/16 at 09:46; Status DC Diltiazem HCl (Cardizem) 60 mg Q6HRS PO Last administered on 08/17/16 06:36; Start 08/12/16 at 11:30 Metoprolol Tartrate (Lopressor) 25 mg BID FT Last administered on 08/12/16 21: 53; Start 08/12/16 at 21:00; Stop 08/13/16 at 09:46; Status DC Aspirin (Zunilda Aspirin) 325 mg DAILYWBKFT FT Last administered on 08/17/16 08: 51; Start 08/13/16 at 08:00 Ceftriaxone Sodium 1 gm/ Sodium Chloride 50 ml @ 100 mls/hr Q24H IV Last administered on 08/16/16 17:51; Start 08/12/16 at 17:00 Metoprolol Tartrate (Lopressor) 50 mg BID FT Last administered on 08/17/16 08: 52; Start 08/13/16 at 10:00 Potassium Chloride (KCl Oral Soln) 20 meq TID PEG Last administered on 08:51; Start 08/13/16 at 10:00 Magnesium Sulfate/ Dextrose 50 ml @ 25 mls/hr 1X ONCE IV Last administered on 08/13/16 11:26; Start 08/13/16 at 10:00; Stop 08/13/16 at 11:59; Status DC Potassium Chloride (Klor-Con) 40 meq 1X ONCE PO ; Start 08/15/16 at 14:00; Stop 08/15/16 at 14:01; Status DC Barium Sulfate (Varibar Thin Liquid Apple) 148 gm 1X ONCE PO Last administered on 08/16/16 12:55; Start 08/16/16 at 12:00; Stop 08/16/16 at 12:01 ; Status DC Levetiracetam (Keppra) 250 mg Q12HR PO Last administered on 08/17/16 08:51; Start 08/16/16 at 21:00 Active Scripts Active Lactulose 20 Gm/30 Ml Solution 20 Gm PO QODAY Ativan (Lorazepam) 0.5 Mg Tablet 0.5 Mg PO BID Diltiazem 24HR Cd (Diltiazem Hcl) 240 Mg Cap.er.24h 240 Mg PO DAILY Vitamin B-1 (Thiamine Hcl) 100 Mg Tablet 100 Mg PO DAILY [place] 5-325 Tablet (Acetaminophen/Hydrocodone Bitart) 1 Each Tablet 1 Tab PO PRN Q6HRS PRN Reported Omeprazole 20 Mg Capsule.dr 20 Mg PO DAILY Zofran Odt (Ondansetron) 8 Mg Tab.rapdis 1 Tab PO PRN Q8HRS PRN [place] 4.2-0.7 mg Film (Buprenorphine HCl/Naloxone HCl) 1 Each Film 1 Each BC DAILY Vitals/I & O Vital Sign - Last 24 Hours 08/16/16 08/16/16 08/16/16 08/16/16 11:01 11:10 15:00 15:28 Temp 98.4 100.5 98.4 100.5 Pulse 79 93 Resp 26 24 B/P (MAP) 139/77 (97) 140/82 (101) Pulse Ox 96 98 O2 Delivery Room Air Room Air Room Air Room Air 08/16/16 08/16/16 08/16/16 08/16/16 17:51 19:24 19:30 20:03 Temp 99.5 99.5 Pulse 93 71 Resp 20 B/P (MAP) 140/82 140/86 (104) Pulse Ox 97 98 O2 Delivery Room Air Room Air Room Air 08/16/16 08/16/16 08/17/16 08/17/16 21:24 23:25 00:42 02:46 Temp 99.0 98.5 99.0 98.5 Pulse 71 63 63 62 Resp 20 22 B/P (MAP) 140/86 160/84 (109) 160/84 143/82 (102) Pulse Ox 96 97 O2 Delivery Room Air Room Air 08/17/16 08/17/16 08/17/16 08/17/16 06:36 07:00 07:04 08:52 Temp 99.0 99.0 Pulse 62 69 68 Resp 20 B/P (MAP) 143/82 135/69 (91) 144/82 Pulse Ox 98 99 O2 Delivery Room Air Room Air Intake and Output 08/16/16 08/16/16 08/17/16 15:00 23:00 07:00 Intake Total 140 ml 440 ml 775 ml Output Total 500 ml 300 ml Balance -360 ml 140 ml 775 ml Nutrition Consultation Dietary Evaluation: Recommendations by RD: Increase Calorie Intake Comments: Rec. continue the TF's until able to pass speech evaluation Fibersource HN, goal rate 55 ml/hr start at 25 ml/hr, increase by 25 ml/hr q8h to goal rate flushes 140 cc q6h if no IVF's running Expected Outcomes/Goals: tolerate TF's at goal rate - met no further wt loss while in the hospital - met Malnutrition Findings: Food and Nutrition Intake (Mod: <75% est energy req 7days Reduced [place] Strength: N/A Reduced [place] Strength (Non-Sev: N/A Malnutrition related to morbid: No Weight Status: Underweight Fluid Accumulation (N/A): N/A JOAN GARDINER MD Aug 17, 2016 10:32
[2016-08-17 11:00] VITALS: BP 137/78
--- NOTE | 2016-08-17 12:52 | PDOC ---
Subjective: Subjective: Dobhoff uncomfortable. Family present, concerned w/ ongoing confusion. PROPOSAL DEVELOPMENT MANAGER present. Objective: Objective: Per RN - off lactulose w/ significant stooling and weight loss, stools slowing now, forgetful. Vital Signs: Vital Signs Date Time Temp Pulse Resp B/P (MAP) Pulse Ox O2 Delivery O2 Flow Rate FiO2 08/17/16 12:36 56 137/78 08/17/16 11:02 99 Room Air 08/17/16 11:00 99.1 17 99.1 Labs: Laboratory Tests Test 08/17/16 04:15 White Blood Count 10.4 x10^3/uL Red Blood Count 3.44 x10^6/uL Hemoglobin 11.2 g/dL Hematocrit 32.9 % Mean Corpuscular Volume 96 fL Mean Corpuscular Hemoglobin 33 pg Mean Corpuscular Hemoglobin Concent 34 g/dL Red Cell Distribution Width 13.4 % Platelet Count 443 x10^3/uL Neutrophils (%) (Auto) 78 % Lymphocytes (%) (Auto) 9 % Monocytes (%) (Auto) 11 % Eosinophils (%) (Auto) 2 % Basophils (%) (Auto) 0 % Neutrophils # (Auto) 8.1 x10^3uL Lymphocytes # (Auto) 0.9 x10^3/uL Monocytes # (Auto) 1.2 x10^3/uL Eosinophils # (Auto) 0.2 x10^3/uL Basophils # (Auto) 0.0 x10^3/uL Imaging: KUB 08/16/16 Impression: Dobbhoff feeding tube in place with the tip now projecting in the left upper quadrant abdomen likely within the fundus of the stomach. PE: GEN: NAD LUNGS: decreased HEART: bradycardic ABD: soft, non-tender NEURO/PSYCH: appropriate A/P: Alcoholism, Hep C, encephalopathy -CT w/ fatty liver -on PPI, lactulose stopped for diarrhea/weight loss -NPO w/ Dobhoff, abnormal videoswallow -- Try Xifaxan. Poor candidate for PEG. CHEN LAURENT Aug 17, 2016 12:52
[2016-08-17] MEDS: rifAXIMin 550 MG TABLET PO SCH ×2 (13:43→20:15)
--- NOTE | 2016-08-17 14:45 | PDOC ---
PROGRESS NOTES Assessment Assessment Seizure x 2 on 08/08/16, alcohol related. Metabolic encephalopathy. Toxic encephalopathy. Respiratory failure. Tiny right frontal and parietal junction infract. Alcoholic. Lactic acidosis. HCV Cannabinoids positive. RECOMMENDATIONS/PLAN: Continue Keppra 500 mg bid, will taper it off in 2 weeks. Continue ASA daily. Treat medical diseases. OT/PT Discussed with his at bedside on 08/17/16. EEG on 08/10/16 showed diffuse encephalopathy. Brain MRI: Tiny infract in right frontal and parietal junction. PAST MEDICAL HISTORY: Hep C cirrhosis, alcoholism, chronic nausea, vomiting, abdominal pain and narcotic addiction. FAMILY HISTORY: Unknown. SOCIAL HISTORY: Lives with his . Heavy alcohol 8-10 beers and wine a day x 40 years. Smoking 2 packs a day x 40 years. Marijuana use. ALLERGIES: No known drug allergies. REVIEW OF SYSTEMS: Constitutional: Mild malnutrition. Head: No recent traumatic brain or head injury. Skin: No edema, or rash. Ear: No infection, tinnitus. Eyes: No vision loss, or diplopia. Nose: No bleeding or purulent discharges. Hearing: No hearing decrease. Neck: No injury. Cardiac: No MS Pulmonary: No pneumonia. GI: No GI Ulcer, GI bleeding Urinary/genital: No dysuria, hematuria, incontinence. Endocrine: No cousin face, craniofacial dysmorphism, polydactyly. Skeletomuscular: No muscular atrophy, deformity. Neurological: see HP. Psychiatric:Alcohol, smoking, marijuana. Otherwise, not [id number] review of systems. PHYSICAL EXAMINATION: General appearance in subacute distress. HEENT: Normocephalic and nontraumatic. Eyes, nose, ears, and throat are unremarkable. Neck is supple. No lymphadenopathy. No Crepitus. Cardiovascular: S1, S2, regular rate and rhythm. Pulmonary: relative clear to auscultation bilaterally. Abdomen: Bowel sounds are positive. Abdomen is soft, nontender, and nondistended. Extremities: No rash, lesions, or edema. No restriction of range of motion NEUROLOGICAL EXAMINATION: Awake. Not fully oriented to time, but knows place and person. PERRL. EOMI. CN: no focal findings. Muscle tone: within normal. Muscle strength: 4-5 DTR: 2 Plantar reflex: Neutral response bilaterally Gait: Not examed in bed. Sensory exam: No acute deficits found. Not acute cerebellar signs elicited. Objective Objective Vital Signs Date Time Temp Pulse Resp B/P (MAP) Pulse Ox O2 Delivery O2 Flow Rate FiO2 08/17/16 12:36 56 137/78 08/17/16 11:02 99 Room Air 08/17/16 11:00 99.1 17 99.1 Intake and Output 08/17/16 07:00 Intake Total 1355 ml Output Total 800 ml Balance 555 ml Intake Oral 0 ml IV Total 50 ml Tube Feeding 805 ml Other 500 ml Output Urine Total 800 ml # Voids 3 # Bowel Movements 2 Vitals Signs Vitals VS - Last 72 Hours, by Label Date Time Temp Pulse Resp B/P (MAP) Pulse Ox O2 Delivery O2 Flow Rate FiO2 08/17/16 12:36 56 137/78 08/17/16 11:02 99 Room Air 08/17/16 11:00 99.1 56 17 137/78 (97) 96 Room Air 99.1 08/17/16 08:52 68 144/82 08/17/16 07:30 Room Air 08/17/16 07:04 99 Room Air 08/17/16 07:00 99.0 69 20 135/69 (91) 98 Room Air 99.0 08/17/16 06:36 62 143/82 08/17/16 02:46 98.5 62 22 143/82 (102) 97 Room Air 98.5 08/17/16 00:42 63 160/84 08/16/16 23:25 99.0 63 20 160/84 (109) 96 Room Air 99.0 08/16/16 21:24 71 140/86 08/16/16 20:03 Room Air 08/16/16 19:30 99.5 71 20 140/86 (104) 98 Room Air 99.5 08/16/16 19:24 97 Room Air 08/16/16 17:51 93 140/82 08/16/16 15:28 Room Air 08/16/16 15:00 100.5 93 24 140/82 (101) 98 Room Air 100.5 08/16/16 11:10 98.4 79 26 139/77 (97) 96 Room Air 98.4 08/16/16 11:01 Room Air 08/16/16 07:27 96 Room Air 08/16/16 07:15 98.9 70 24 139/85 (103) 97 Room Air 98.9 Laboratory Laboratory Laboratory Tests Test 08/17/16 04:15 White Blood Count 10.4 x10^3/uL (4.0-11.0) Red Blood Count 3.44 x10^6/uL (4.30-5.70) Hemoglobin 11.2 g/dL (13.0-17.5) Hematocrit 32.9 % (39.0-53.0) Mean Corpuscular Volume 96 fL (79-100) Mean Corpuscular Hemoglobin 33 pg (25-35) Mean Corpuscular Hemoglobin Concent 34 g/dL (31-37) Red Cell Distribution Width 13.4 % (11.5-14.5) Platelet Count 443 x10^3/uL (140-400) Neutrophils (%) (Auto) 78 % (31-73) Lymphocytes (%) (Auto) 9 % (24-48) Monocytes (%) (Auto) 11 % (0-9) Eosinophils (%) (Auto) 2 % (0-3) Basophils (%) (Auto) 0 % (0-3) Neutrophils # (Auto) 8.1 x10^3uL (1.8-7.7) Lymphocytes # (Auto) 0.9 x10^3/uL (1.0-4.8) Monocytes # (Auto) 1.2 x10^3/uL (0.0-1.1) Eosinophils # (Auto) 0.2 x10^3/uL (0.0-0.7) Basophils # (Auto) 0.0 x10^3/uL (0.0-0.2) Microbiology 08/11/16 Blood Culture - Final, Complete NO GROWTH AFTER 5 DAYS 08/11/16 Urine Culture - Final, Complete 08/11/16 Urine Culture Result 1 (JENNY) - Final, Complete 08/11/16 Antimicrobic Susceptibility - Final, Complete Medication Medications Current Medications Levetiracetam (Keppra) 250 mg Q12HR PO Last administered on 08/17/16 08:51; Start 08/16/16 at 21:00 Rifaximin (Xifaxan) 550 mg Q12HR PO Last administered on 08/17/16t 13:43; Start 08/17/16 at 13:30 Comment Review of Relevant I have reviewed the following items chikis (where applicable) has been applied. ADONIS HUITRON MD Aug 17, 2016 14:45
[2016-08-17 15:00] VITALS: BP 119/65
[2016-08-17] MEDS: ENOXAPARIN 40 MG/0.4 ML SYRINGE. SQ SCH (15:00)
[2016-08-17] MEDS: MULTIVIT INFUSN,ADULT 4,VIT K 10 ML, FOLIC ACID 1 MG, THIAMINE 100 MG in IV NORMAL SALI... IV SCH (16:12)
[2016-08-17] MEDS: THIAMINE 100 MG TABLET. PO SCH (18:00)
[2016-08-17 19:00] VITALS: BP 135/79
[2016-08-17] MEDS: fentaNYL PF VIAL 100 MCG/2 ML VIAL IV PRN ×2 (19:37→22:36)
[2016-08-17 22:54] VITALS: BP 152/75
[2016-08-18] VITALS (7 sets, daily range): BP systolic 125–169; BP diastolic 59–97
[2016-08-18] MEDS: dilTIAZem HCL 30 MG TABLET PO SCH ×4 (00:22→17:50)
[2016-08-18] MEDS: fentaNYL PF VIAL 100 MCG/2 ML VIAL IV PRN ×5 (02:27→21:07)
[2016-08-18 06:38] LABS: BASO # 0.1 x10^3/uL (0.0-0.2); BASO % 1 % (0-3); EOS % 1 % (0-3); HEMATOCRIT 33.4 % (39.0-53.0); HEMOGLOBIN 11.3 g/dL (13.0-17.5); LYMPH # 1.2 x10^3/uL (1.0-4.8); LYMPH % 10 % (24-48); MEAN CORPUSCULAR HEMOGLOBIN 33 pg (25-35); MEAN CORPUSCULAR HGB CONC 34 g/dL (31-37); MEAN CORPUSCULAR VOLUME 96 fL (79-100); MONO % 9 % (0-9); NEUT % 80 % (31-73); PLATELET COUNT 642 x10^3/uL (140-400); RED BLOOD COUNT 3.47 x10^6/uL (4.30-5.70); RED CELL DISTRIBUTION WIDTH 13.4 % (11.5-14.5); WHITE BLOOD COUNT 12.4 x10^3/uL (4.0-11.0)
[2016-08-18] MEDS: IPRATROPIUM BROMIDE 0.5 MG/2.5 ML NEBU. NEB SCH ×4 (08:18→19:30)
[2016-08-18] MEDS: ACETAMINOPHEN 650 MG/20.3 ML SOLUTION. PEG PRN (09:24)
[2016-08-18] MEDS: PANTOPRAZOLE IV PUSH 40 MG VIAL. IVP SCH (09:24)
[2016-08-18] MEDS: POTASSIUM CHLORIDE 20 MEQ/15 ML ORAL LIQUID. PEG SCH ×3 (09:25→21:06)
[2016-08-18] MEDS: levETIRAcetam 500 MG TABLET PO SCH ×2 (09:25→21:06)
[2016-08-18] MEDS: METOPROLOL TART IMMED RELEASE 25 MG TABLET. FT SCH ×2 (09:27→21:06)
[2016-08-18] MEDS: THIAMINE 100 MG TABLET. PO SCH (09:27)
[2016-08-18] MEDS: ASPIRIN 325 MG TABLET FT SCH (09:27)
[2016-08-18] MEDS: rifAXIMin 550 MG TABLET PO SCH ×2 (09:29→21:05)
--- NOTE | 2016-08-18 09:44 | PDOC ---
PROGRESS NOTES Chief Complaint Chief Complaint cc: seizure like activity A/P Acute hypoxic respiratory failure: Extubated 08/09, on NC Hepatic encephalopathy, persistent: Alert but not oriented to time, Possible alcohol withdrawal seizures: on CIWA protocol, prn Ativan, Chronic alcoholism Physical debility and weakness. , Paroxysmal, Afib: on Cardizem, rate controlled. Oropharyngeal dysphagia: , tube feeds. failed speech, Hypokalemia: replaced, Hx hep C Prognosis guarded. PT/OT Disposition: SNU VS ACUTE REHAB History of Present Illness History of Present Illness confused Vitals Vitals Vital Signs Date Time Temp Pulse Resp B/P (MAP) Pulse Ox O2 Delivery O2 Flow Rate FiO2 08/18/16 09:34 Room Air 08/18/16 09:27 71 169/86 08/18/16 08:20 98 08/18/16 07:30 98.3 22 98.3 Physical Exam General: Alert, No acute distress, Other (not oritend to time) Heart: Normal S1, Normal S2, No murmurs Lungs: Clear, Other (decrease bs) Abdomen: Normal bowel sounds Extremities: No edema, Normal pulses Skin: No rashes Labs LABS Laboratory Tests Test 08/18/16 06:10 White Blood Count 12.4 x10^3/uL (4.0-11.0) Red Blood Count 3.47 x10^6/uL (4.30-5.70) Hemoglobin 11.3 g/dL (13.0-17.5) Hematocrit 33.4 % (39.0-53.0) Mean Corpuscular Volume 96 fL (79-100) Mean Corpuscular Hemoglobin 33 pg (25-35) Mean Corpuscular Hemoglobin Concent 34 g/dL (31-37) Red Cell Distribution Width 13.4 % (11.5-14.5) Platelet Count 642 x10^3/uL (140-400) Neutrophils (%) (Auto) 80 % (31-73) Lymphocytes (%) (Auto) 10 % (24-48) Monocytes (%) (Auto) 9 % (0-9) Eosinophils (%) (Auto) 1 % (0-3) Basophils (%) (Auto) 1 % (0-3) Neutrophils # (Auto) 9.9 x10^3uL (1.8-7.7) Lymphocytes # (Auto) 1.2 x10^3/uL (1.0-4.8) Monocytes # (Auto) 1.1 x10^3/uL (0.0-1.1) Eosinophils # (Auto) 0.1 x10^3/uL (0.0-0.7) Basophils # (Auto) 0.1 x10^3/uL (0.0-0.2) Assessment and Plan Assessmemt and Plan Problems Medical Problems: (1) Alcohol withdrawal Status: Acute (2) Hepatic encephalopathy Status: Acute (3) Lactic acid acidosis Status: Acute (4) Respiratory failure Status: Acute Problems: Comment Review of Relevant I have reviewed the following items chikis (where applicable) has been applied. Labs Laboratory Tests Test 08/17/16 04:15 08/18/16 06:10 White Blood Count 10.4 x10^3/uL (4.0-11.0) 12.4 x10^3/uL (4.0-11.0) Red Blood Count 3.44 x10^6/uL (4.30-5.70) 3.47 x10^6/uL (4.30-5.70) Hemoglobin 11.2 g/dL (13.0-17.5) 11.3 g/dL (13.0-17.5) Hematocrit 32.9 % (39.0-53.0) 33.4 % (39.0-53.0) Mean Corpuscular Volume 96 fL (79-100) 96 fL (79-100) Mean Corpuscular Hemoglobin 33 pg (25-35) 33 pg (25-35) Mean Corpuscular Hemoglobin Concent 34 g/dL (31-37) 34 g/dL (31-37) Red Cell Distribution Width 13.4 % (11.5-14.5) 13.4 % (11.5-14.5) Platelet Count 443 x10^3/uL (140-400) 642 x10^3/uL (140-400) Neutrophils (%) (Auto) 78 % (31-73) 80 % (31-73) Lymphocytes (%) (Auto) 9 % (24-48) 10 % (24-48) Monocytes (%) (Auto) 11 % (0-9) 9 % (0-9) Eosinophils (%) (Auto) 2 % (0-3) 1 % (0-3) Basophils (%) (Auto) 0 % (0-3) 1 % (0-3) Neutrophils # (Auto) 8.1 x10^3uL (1.8-7.7) 9.9 x10^3uL (1.8-7.7) Lymphocytes # (Auto) 0.9 x10^3/uL (1.0-4.8) 1.2 x10^3/uL (1.0-4.8) Monocytes # (Auto) 1.2 x10^3/uL (0.0-1.1) 1.1 x10^3/uL (0.0-1.1) Eosinophils # (Auto) 0.2 x10^3/uL (0.0-0.7) 0.1 x10^3/uL (0.0-0.7) Basophils # (Auto) 0.0 x10^3/uL (0.0-0.2) 0.1 x10^3/uL (0.0-0.2) Laboratory Tests Test 08/18/16 06:10 White Blood Count 12.4 x10^3/uL (4.0-11.0) Red Blood Count 3.47 x10^6/uL (4.30-5.70) Hemoglobin 11.3 g/dL (13.0-17.5) Hematocrit 33.4 % (39.0-53.0) Mean Corpuscular Volume 96 fL (79-100) Mean Corpuscular Hemoglobin 33 pg (25-35) Mean Corpuscular Hemoglobin Concent 34 g/dL (31-37) Red Cell Distribution Width 13.4 % (11.5-14.5) Platelet Count 642 x10^3/uL (140-400) Neutrophils (%) (Auto) 80 % (31-73) Lymphocytes (%) (Auto) 10 % (24-48) Monocytes (%) (Auto) 9 % (0-9) Eosinophils (%) (Auto) 1 % (0-3) Basophils (%) (Auto) 1 % (0-3) Neutrophils # (Auto) 9.9 x10^3uL (1.8-7.7) Lymphocytes # (Auto) 1.2 x10^3/uL (1.0-4.8) Monocytes # (Auto) 1.1 x10^3/uL (0.0-1.1) Eosinophils # (Auto) 0.1 x10^3/uL (0.0-0.7) Basophils # (Auto) 0.1 x10^3/uL (0.0-0.2) Microbiology 08/11/16 Blood Culture - Final, Complete NO GROWTH AFTER 5 DAYS 08/11/16 Urine Culture - Final, Complete 08/11/16 Urine Culture Result 1 (JENNY) - Final, Complete 08/11/16 Antimicrobic Susceptibility - Final, Complete Medications Current Medications Diltiazem HCl (Cardizem) 25 mg STK-MED ONCE .ROUTE ; Start 08/08/16 at 10:37; Stop 08/08/16 at 10:38; Status DC Diltiazem HCl 125 mg/Dextrose 125 ml @ 0 mls/hr CONT PRN IV SEE I/O RECORD Last administered on 08/12/16 06:20; Start 08/08/16 at 11:00; Stop 08/12/16 at 12:30; Status DC Diltiazem HCl (Cardizem) 20 mg 1X ONCE IVP Last administered on 08/08/16 10: 40; Start 08/08/16 at 11:00; Stop 08/08/16 at 11:01; Status DC Lorazepam (Ativan) 2 mg STK-MED ONCE .ROUTE ; Start 08/08/16 at 10:55; Stop 01/14 at 10:56; Status DC Iohexol (Omnipaque 350 Mg/ml) 90 ml 1X ONCE IV Last administered on 08/08/16 11:15; Start 08/08/16 at 11:15; Stop 08/08/16 at 11:16; Status DC Propofol 20 ml @ 0 mls/hr 1X ONCE IV Last administered on 08/08/16 11:20; Start 08/08/16 at 11:15; Stop 08/08/16 at 11:16; Status DC Info (Do NOT chart on this entry -- for MONITORING) 1 each PRN DAILY PRN MC SEE COMMENTS; Start 08/08/16 at 11:15; Stop 08/10/16 at 09:37; Status DC Fentanyl Citrate (Fentanyl 2ml Vial) 100 mcg 1X ONCE IV Last administered on t 11:03; Start 08/08/16 at 11:15; Stop 08/08/16 at 11:16; Status DC Fentanyl Citrate (Fentanyl 2ml Vial) 100 mcg 1X ONCE IV Last administered on t 11:16; Start 08/08/16 at 11:15; Stop 08/08/16 at 11:16; Status DC Propofol 50 ml @ As Directed STK-MED ONCE IV ; Start 08/08/16 at 11:17; Stop 01/14 at 11:18; Status DC Ondansetron HCl (Zofran) 4 mg PRN Q8HRS PRN IV NAUSEA/VOMITING; Start 08/08/16 at 11:30; Stop 08/09/16 at 11:29; Status DC Fentanyl Citrate (Fentanyl 2ml Vial) 50 mcg PRN Q2HR PRN IV PAIN Last administered on 08/08/16t 13:16; Start 08/08/16 at 11:30; Stop 08/09/16 at 11:29 ; Status DC Levetiracetam 1000 mg/Sodium Chloride 110 ml @ 440 mls/hr 1X ONCE IV Last administered on 08/08/16t 11:39; Start 08/08/16 at 11:45; Stop 08/08/16 at 11:59 ; Status DC Fentanyl Citrate (Fentanyl 2ml Vial) 100 mcg 1X ONCE IV ; Start 08/08/16 at 11: 45; Stop 08/08/16 at 11:46; Status DC Propofol 50 ml @ As Directed STK-MED ONCE IV ; Start 08/08/16 at 12:09; Stop 01/14 at 12:10; Status DC Lorazepam (Ativan) 2 mg 1X ONCE IV ; Start 08/08/16 at 13:00; Stop 08/08/16 at 13:01; Status DC Succinylcholine Chloride (Anectine) 100 mg 1X ONCE IV ; Start 08/08/16 at 13:00 ; Stop 08/08/16 at 13:01; Status DC Etomidate (Amidate) 20 mg 1X ONCE IV ; Start 08/08/16 at 13:00; Stop 08/08/16 at 13:01; Status DC Propofol 100 ml @ 0 mls/hr CONT PRN IV PER PROTOCOL Last administered on 09:08; Start 08/08/16 at 13:45; Stop 08/11/16 at 10:11; Status DC Fentanyl Citrate (Fentanyl 2ml Vial) 50 mcg PRN Q1HR PRN IV COMM Last administered on 08/18/16 08:09; Start 08/08/16 at 13:45 Chlorhexidine Gluconate (Peridex) 15 ml BID MM Last administered on 08/09/16 09:08; Start 08/08/16 at 21:00; Stop 08/10/16 at 08:29; Status DC Ipratropium [place] (Atrovent) 0.5 mg RTQID NEB Last administered on 08/18/16 08:18; Start 08/08/16 at 16:00 Metoprolol Tartrate (Lopressor) 12.5 mg BID PO Last administered on 08/08/16 21:51; Start 08/08/16 at 14:30; Stop 08/10/16 at 09:48; Status DC Lorazepam (Ativan) 1 mg PRN Q4HRS PRN IV ANXIETY / AGITATION Last administered on 08/16/16 21:25; Start 08/08/16 at 14:45 Levetiracetam (Keppra) 500 mg Q12HR PO Last administered on 08/15/16 21:30; Start 08/08/16 at 21:00; Stop 08/16/16 at 17:14; Status DC Multivitamins 10 ml/Folic Acid 1 mg/Thiamine HCl 100 mg/Sodium Chloride 1,011.2 ml @ 100 mls/ hr Q24H IV Last administered on 08/17/16 16:12; Start 08/08/16 at 16:00; Stop 08/17/16 at 16:20; Status DC Lorazepam (Ativan) 2 mg PRN Q4HRS PRN IV ANXIETY / AGITATION Last administered on 08/10/16 11:11; Start 08/08/16 at 15:15; Stop 08/13/16 at 11:08; Status DC Aspirin (Zunilda Aspirin) 325 mg DAILY PO Last administered on 08/09/16 09:09; Start 08/09/16 at 09:00; Stop 08/10/16 at 09:48; Status DC Diltiazem HCl (Cardizem 24hr Cd) 240 mg DAILY PO ; Start 08/09/16 at 09:00; Stop 08/10/16 at 09:48; Status DC Lactulose 20 gm Q48H PO Last administered on 08/09/16 09:13; Start 08/09/16 at 09:00; Stop 08/09/16 at 16:32; Status DC Pantoprazole Sodium (Protonix) 40 mg DAILYAC PO ; Start 08/09/16 at 07:30; Stop 08/09/16 at 09:36; Status DC Non-Formulary Medication 100 mg DAILY PO Last administered on 08/13/16 10:02; Start 08/09/16 at 09:00; Stop 08/13/16 at 11:09; Status UNV Pantoprazole Sodium (Protonix Vial) 40 mg DAILYAC IVP Last administered on 08/18 09:24; Start 08/09/16 at 10:00 Iohexol (Omnipaque 300 Mg/ml) 75 ml 1X ONCE IV ; Start 08/09/16 at 14:00; Stop 08/09/16 at 14:01; Status DC Info (Do NOT chart on this entry -- for MONITORING) 1 each PRN DAILY PRN MC SEE COMMENTS; Start 08/09/16 at 14:00; Stop 08/11/16 at 13:59; Status DC Lactulose 20 gm BID PO Last administered on 08/11/16 10:27; Start 08/09/16 at 21:00; Stop 08/11/16 at 10:52; Status DC Lorazepam (Ativan) 2 mg PRN Q1HR PRN IV For CIWA 8-14 Last administered on 08/16 01:17; Start 08/09/16 at 20:45 Lorazepam (Ativan) 4 mg PRN Q1HR PRN IV For CIWA 15 or greater Last administered on 08/10/16 06:55; Start 08/09/16 at 20:45 Haloperidol Lactate (Haldol) 5 mg PRN Q4HRS PRN IVP Hallucinatns,Confusn, Delirium Last administered on 08/10/16 12:29; Start 08/09/16 at 20:45; Stop at 10:11; Status DC Metoprolol Tartrate (Lopressor) 5 mg PRN Q4HRS PRN IVP ELEVATED BP, SEE COMMENTS Last administered on 08/10/16 02:49; Start 08/09/16 at 22:15; Stop at 09:48; Status DC Diltiazem HCl (Cardizem) 5 mg 1X ONCE IVP Last administered on 08/10/16 08:22 ; Start 08/10/16 at 08:15; Stop 08/10/16 at 08:16; Status DC Metoprolol Tartrate (Lopressor) 5 mg Q6HRS PRN IVP ELEVATED BP, SEE COMMENTS; Start 08/10/16 at 09:45; Stop 08/10/16 at 10:05; Status DC Aspirin (Aspirin) 300 mg DAILY DE Last administered on 08/12/16 08:21; Start 08/10/16 at 09:45; Stop 08/12/16 at 11:14; Status DC Magnesium Sulfate/ Dextrose 50 ml @ 25 mls/hr 1X ONCE IV Last administered on 08/10/16 10:56; Start 08/10/16 at 10:00; Stop 08/10/16 at 11:59; Status DC Metoprolol Tartrate (Lopressor) 5 mg Q6HRS IVP Last administered on 08/12/16 05:00; Start 08/10/16 at 10:15; Stop 08/12/16 at 11:14; Status DC Enoxaparin Sodium (Lovenox 30mg Syringe) 30 mg Q24H SQ ; Start 08/10/16 at 15:00 ; Stop 08/10/16 at 15:00; Status DC Enoxaparin Sodium (Lovenox 40mg Syringe) 40 mg Q24H SQ Last administered on 15:00; Start 08/10/16 at 15:00 Acetaminophen (Tylenol) 650 mg PRN Q6HRS PRN PEG MILD PAIN / TEMP Last administered on 08/18/16 09:24; Start 08/10/16 at 23:45 Succinylcholine Chloride (Anectine) 200 mg STK-MED ONCE .ROUTE ; Start 08/11/16 at 01:30; Stop 08/11/16 at 01:31; Status DC Succinylcholine Chloride (Anectine) 200 mg STK-MED ONCE .ROUTE ; Start 08/11/16 at 01:30; Stop 08/11/16 at 08:48; Status DC Haloperidol Lactate (Haldol) 2.5 mg PRN Q4HRS PRN IVP Hallucinatns,Confusn, Delirium; Start 08/11/16 at 10:15 Potassium Chloride (KCl Oral Soln) 40 meq 1X ONCE PEG Last administered on 10:30; Start 08/11/16 at 10:30; Stop 08/11/16 at 10:31; Status DC Potassium Chloride (KCl Oral Soln) 40 meq 1X ONCE PEG Last administered on 16:00; Start 08/11/16 at 15:00; Stop 08/11/16 at 15:01; Status DC Digoxin (Lanoxin) 500 mcg 1X ONCE IV Last administered on 08/11/16 10:30; Start 08/11/16 at 10:30; Stop 08/11/16 at 10:31; Status DC Lactulose 20 gm QD PO Last administered on 08/14/16 09:54; Start 08/12/16 at 09:00; Stop 08/15/16 at 11:50; Status DC Phenylephrine HCl 20 mg/Sodium Chloride 252 ml @ 0 mls/hr 1X ONCE IV ; Start at 14:30; Stop 08/11/16 at 14:31; Status Cancel Magnesium Sulfate/ Dextrose 50 ml @ 25 mls/hr 1X ONCE IV Last administered on 08/12/16 09:32; Start 08/12/16 at 09:00; Stop 08/12/16 at 10:59; Status DC Magnesium Sulfate/ Dextrose 50 ml @ 25 mls/hr 1X ONCE IV Last administered on 08/12/16 17:56; Start 08/12/16 at 16:00; Stop 08/12/16 at 17:59; Status DC Potassium Chloride (KCl Oral Soln) 20 meq BID PEG Last administered on 21:52; Start 08/12/16 at 11:15; Stop 08/13/16 at 09:46; Status DC Diltiazem HCl (Cardizem) 60 mg Q6HRS PO Last administered on 08/18/16 06:04; Start 08/12/16 at 11:30 Metoprolol Tartrate (Lopressor) 25 mg BID FT Last administered on 08/12/16 21: 53; Start 08/12/16 at 21:00; Stop 08/13/16 at 09:46; Status DC Aspirin (Zunilda Aspirin) 325 mg DAILYWBKFT FT Last administered on 08/18/16 09: 27; Start 08/13/16 at 08:00 Ceftriaxone Sodium 1 gm/ Sodium Chloride 50 ml @ 100 mls/hr Q24H IV Last administered on 08/16/16 17:51; Start 08/12/16 at 17:00; Stop 08/17/16 at 10:33 ; Status DC Metoprolol Tartrate (Lopressor) 50 mg BID FT Last administered on 08/18/16 09: 27; Start 08/13/16 at 10:00 Potassium Chloride (KCl Oral Soln) 20 meq TID PEG Last administered on 09:25; Start 08/13/16 at 10:00 Magnesium Sulfate/ Dextrose 50 ml @ 25 mls/hr 1X ONCE IV Last administered on 08/13/16 11:26; Start 08/13/16 at 10:00; Stop 08/13/16 at 11:59; Status DC Potassium Chloride (Klor-Con) 40 meq 1X ONCE PO ; Start 08/15/16 at 14:00; Stop 08/15/16 at 14:01; Status DC Barium Sulfate (Varibar Thin Liquid Apple) 148 gm 1X ONCE PO Last administered on 08/16/16 12:55; Start 08/16/16 at 12:00; Stop 08/16/16 at 12:01 ; Status DC Levetiracetam (Keppra) 250 mg Q12HR PO Last administered on 08/18/16 09:25; Start 08/16/16 at 21:00 Rifaximin (Xifaxan) 550 mg Q12HR PO Last administered on 08/18/16 09:29; Start 08/17/16 at 13:30 Thiamine Mononitrate (Vitamin B-1) 100 mg DAILY PO Last administered on 09:27; Start 08/17/16 at 17:00 Active Scripts Active Lactulose 20 Gm/30 Ml Solution 20 Gm PO QODAY Ativan (Lorazepam) 0.5 Mg Tablet 0.5 Mg PO BID Diltiazem 24HR Cd (Diltiazem Hcl) 240 Mg Cap.er.24h 240 Mg PO DAILY Vitamin B-1 (Thiamine Hcl) 100 Mg Tablet 100 Mg PO DAILY [place] 5-325 Tablet (Acetaminophen/Hydrocodone Bitart) 1 Each Tablet 1 Tab PO PRN Q6HRS PRN Reported Omeprazole 20 Mg Capsule.dr 20 Mg PO DAILY Zofran Odt (Ondansetron) 8 Mg Tab.rapdis 1 Tab PO PRN Q8HRS PRN [place] 4.2-0.7 mg Film (Buprenorphine HCl/Naloxone HCl) 1 Each Film 1 Each BC DAILY Vitals/I & O Vital Sign - Last 24 Hours 08/17/16 08/17/16 08/17/16 08/17/16 11:00 11:02 12:36 15:00 Temp 99.1 98.7 99.1 98.7 Pulse 56 56 64 Resp 17 17 B/P (MAP) 137/78 (97) 137/78 119/65 (83) Pulse Ox 96 99 97 O2 Delivery Room Air Room Air Room Air 08/17/16 08/17/16 08/17/16 08/17/16 16:26 18:02 19:00 19:37 Temp 98.2 98.2 Pulse 68 65 Resp 20 B/P (MAP) 165/87 135/79 (97) Pulse Ox 97 98 O2 Delivery Room Air Room Air Room Air 08/17/16 08/17/16 08/17/16 08/17/16 19:48 19:49 20:16 22:36 Pulse 65 B/P (MAP) 135/79 Pulse Ox 98 98 O2 Delivery Room Air Room Air Room Air 08/17/16 08/18/16 08/18/16 08/18/16 22:54 00:22 02:27 02:57 Temp 98.2 98.2 Pulse 59 59 Resp 16 B/P (MAP) 152/75 (100) 152/75 Pulse Ox 96 96 96 O2 Delivery Room Air Room Air 08/18/16 08/18/16 08/18/16 08/18/16 03:00 06:04 07:30 08:20 Temp 98.3 98.3 98.3 98.3 Pulse 76 76 71 Resp 18 22 B/P (MAP) 165/97 (119) 165/97 169/86 (113) Pulse Ox 97 98 98 O2 Delivery Room Air Room Air 08/18/16 08/18/16 09:27 09:34 Pulse 71 B/P (MAP) 169/86 O2 Delivery Room Air Intake and Output 08/17/16 08/17/16 08/18/16 15:00 23:00 07:00 Intake Total 280 ml 1355 ml 1680 ml Output Total 1 ml Balance 280 ml 1355 ml 1679 ml Nutrition Consultation Dietary Evaluation: Recommendations by RD: Increase Calorie Intake Comments: Rec. continue the TF's until able to pass speech evaluation Fibersource HN, goal rate 55 ml/hr start at 25 ml/hr, increase by 25 ml/hr q8h to goal rate flushes 140 cc q6h if no IVF's running Expected Outcomes/Goals: tolerate TF's at goal rate - met no further wt loss while in the hospital - met Malnutrition Findings: Food and Nutrition Intake (Mod: <75% est energy req 7days Reduced Product Management Specialist Strength: N/A Reduced Product Management Specialist Strength (Non-Sev: N/A Malnutrition related to morbid: No Weight Status: Underweight Fluid Accumulation (N/A): N/A JOAN GARDINER MD Aug 18, 2016 09:44
[2016-08-18] MEDS ORDERED: POTASSIUM CHLORIDE 20 MEQ TABLET.ER. PO ONE (09:45)
[2016-08-18] MEDS ORDERED: POTASSIUM CHLORIDE 20 MEQ/15 ML ORAL LIQUID. PEG ONE (13:00)
--- NOTE | 2016-08-18 14:23 | PDOC ---
Subjective: Subjective: Feeling better. Objective: Vital Signs: Vital Signs Date Time Temp Pulse Resp B/P (MAP) Pulse Ox O2 Delivery O2 Flow Rate FiO2 08/18/16 13:14 98 Room Air 3.0 08/18/16 13:13 59 128/74 08/18/16 11:00 98.1 20 98.1 Labs: Laboratory Tests Test 08/18/16 06:10 White Blood Count 12.4 x10^3/uL Red Blood Count 3.47 x10^6/uL Hemoglobin 11.3 g/dL Hematocrit 33.4 % Mean Corpuscular Volume 96 fL Mean Corpuscular Hemoglobin 33 pg Mean Corpuscular Hemoglobin Concent 34 g/dL Red Cell Distribution Width 13.4 % Platelet Count 642 x10^3/uL Neutrophils (%) (Auto) 80 % Lymphocytes (%) (Auto) 10 % Monocytes (%) (Auto) 9 % Eosinophils (%) (Auto) 1 % Basophils (%) (Auto) 1 % Neutrophils # (Auto) 9.9 x10^3uL Lymphocytes # (Auto) 1.2 x10^3/uL Monocytes # (Auto) 1.1 x10^3/uL Eosinophils # (Auto) 0.1 x10^3/uL Basophils # (Auto) 0.1 x10^3/uL PE: GEN: NAD LUNGS: CTAB HEART: RRR ABD: S/ND/NT NEURO/PSYCH: A & O 3 - knows hospital name, year, and president A/P: Alcoholism, Hep C, encephalopathy -CT w/ fatty liver -on PPI, Xifaxan -NPO w/ Dobhoff, abnormal videoswallow -- Mental status improved. Continue same per GI. CHEN LAURENT Aug 18, 2016 14:23
--- NOTE | 2016-08-18 14:51 | PDOC ---
PROGRESS NOTES Assessment Assessment Seizure x 2 on 08/08/16, alcohol related. Metabolic encephalopathy. Toxic encephalopathy. Respiratory failure. Tiny right frontal and parietal junction infract. Alcoholic. Lactic acidosis. HCV Cannabinoids positive. RECOMMENDATIONS/PLAN: Continue Keppra, decrease to 250 mg bid and will taper it off in 2 weeks. Continue ASA daily. Treat medical diseases. OT/PT Discussed with his at bedside on 08/17/16. EEG on 08/10/16 showed diffuse encephalopathy. Brain MRI: Tiny infract in right frontal and parietal junction. PAST MEDICAL HISTORY: Hep C cirrhosis, alcoholism, chronic nausea, vomiting, abdominal pain and narcotic addiction. FAMILY HISTORY: Unknown. SOCIAL HISTORY: Lives with his . Heavy alcohol 8-10 beers and wine a day x 40 years. Smoking 2 packs a day x 40 years. Marijuana use. ALLERGIES: No known drug allergies. REVIEW OF SYSTEMS: Constitutional: Mild malnutrition. Head: No recent traumatic brain or head injury. Skin: No edema, or rash. Ear: No infection, tinnitus. Eyes: No vision loss, or diplopia. Nose: No bleeding or purulent discharges. Hearing: No hearing decrease. Neck: No injury. Cardiac: No PA Pulmonary: No pneumonia. GI: No GI Ulcer, GI bleeding Urinary/genital: No dysuria, hematuria, incontinence. Endocrine: No cousin face, craniofacial dysmorphism, polydactyly. Skeletomuscular: No muscular atrophy, deformity. Neurological: see HP. Psychiatric:Alcohol, smoking, marijuana. Otherwise, not [id number] review of systems. PHYSICAL EXAMINATION: General appearance in no acute distress. HEENT: Normocephalic and nontraumatic. Eyes, nose, ears, and throat are unremarkable. Neck is supple. No lymphadenopathy. No Crepitus. Cardiovascular: S1, S2, regular rate and rhythm. Pulmonary: relative clear to auscultation bilaterally. Abdomen: Bowel sounds are positive. Abdomen is soft, nontender, and nondistended. Extremities: No rash, lesions, or edema. No restriction of range of motion NEUROLOGICAL EXAMINATION: Awake. Partially oriented to time, and knows place and person. PERRL. EOMI. CN: no focal findings. Muscle tone: within normal. Muscle strength: 4-5 DTR: 2 Plantar reflex: Neutral response bilaterally Gait: Not examed in bed. Sensory exam: No acute deficits found. Not acute cerebellar signs elicited. Objective Objective Vital Signs Date Time Temp Pulse Resp B/P (MAP) Pulse Ox O2 Delivery O2 Flow Rate FiO2 08/18/16 14:35 98 Room Air 08/18/16 13:14 3.0 08/18/16 13:13 59 128/74 08/18/16 11:00 98.1 20 98.1 Intake and Output 08/18/16 07:00 Intake Total 3315 ml Output Total 1 ml Balance 3314 ml Intake Oral 0 ml IV Total 100 ml Tube Feeding 2775 ml Other 440 ml Stool Total 1 ml # Voids 8 # Bowel Movements 3 Vitals Signs Vitals VS - Last 72 Hours, by Label Date Time Temp Pulse Resp B/P (MAP) Pulse Ox O2 Delivery O2 Flow Rate FiO2 08/18/16 14:35 98 Room Air 08/18/16 13:14 98 Room Air 3.0 08/18/16 13:13 59 128/74 08/18/16 11:59 Room Air 08/18/16 11:00 98.1 59 20 128/74 (92) 98 Room Air 98.1 08/18/16 09:27 71 169/86 08/18/16 08:20 98 Room Air 08/18/16 08:00 Room Air 08/18/16 07:30 98.3 71 22 169/86 (113) 98 Room Air 98.3 08/18/16 06:04 76 165/97 08/18/16 03:00 98.3 76 18 165/97 (119) 97 98.3 08/18/16 02:27 96 Room Air 08/18/16 00:22 59 152/75 08/17/16 22:54 98.2 59 16 152/75 (100) 96 Room Air 98.2 08/17/16 22:36 98 Room Air 08/17/16 20:16 65 135/79 08/17/16 19:49 98 Room Air 08/17/16 19:48 Room Air 08/17/16 19:37 98 Room Air 08/17/16 19:00 98.2 65 20 135/79 (97) 97 Room Air 98.2 08/17/16 18:02 68 165/87 08/17/16 16:26 Room Air 08/17/16 15:00 98.7 64 17 119/65 (83) 97 Room Air 98.7 08/17/16 12:36 56 137/78 08/17/16 11:02 99 Room Air 08/17/16 11:00 99.1 56 17 137/78 (97) 96 Room Air 99.1 08/17/16 08:52 68 144/82 08/17/16 07:30 Room Air 08/17/16 07:04 99 Room Air 08/17/16 07:00 99.0 69 20 135/69 (91) 98 Room Air 99.0 Laboratory Laboratory Laboratory Tests Test 08/18/16 06:10 White Blood Count 12.4 x10^3/uL (4.0-11.0) Red Blood Count 3.47 x10^6/uL (4.30-5.70) Hemoglobin 11.3 g/dL (13.0-17.5) Hematocrit 33.4 % (39.0-53.0) Mean Corpuscular Volume 96 fL (79-100) Mean Corpuscular Hemoglobin 33 pg (25-35) Mean Corpuscular Hemoglobin Concent 34 g/dL (31-37) Red Cell Distribution Width 13.4 % (11.5-14.5) Platelet Count 642 x10^3/uL (140-400) Neutrophils (%) (Auto) 80 % (31-73) Lymphocytes (%) (Auto) 10 % (24-48) Monocytes (%) (Auto) 9 % (0-9) Eosinophils (%) (Auto) 1 % (0-3) Basophils (%) (Auto) 1 % (0-3) Neutrophils # (Auto) 9.9 x10^3uL (1.8-7.7) Lymphocytes # (Auto) 1.2 x10^3/uL (1.0-4.8) Monocytes # (Auto) 1.1 x10^3/uL (0.0-1.1) Eosinophils # (Auto) 0.1 x10^3/uL (0.0-0.7) Basophils # (Auto) 0.1 x10^3/uL (0.0-0.2) Microbiology 08/11/16 Blood Culture - Final, Complete NO GROWTH AFTER 5 DAYS 08/11/16 Urine Culture - Final, Complete 08/11/16 Urine Culture Result 1 (JENNY) - Final, Complete 08/11/16 Antimicrobic Susceptibility - Final, Complete Medication Medications Current Medications Lansoprazole (Prevacid) 30 mg DAILY FT ; Start 08/19/16 at 09:00 Potassium Chloride (KCl Oral Soln) 20 meq 1X ONCE PEG Last administered on t 13:13; Start 08/18/16 at 13:00; Stop 08/18/16 at 13:10; Status DC Potassium Chloride (Klor-Con) 40 meq 1X ONCE PO ; Start 08/18/16 at 09:45; Stop 08/18/16 at 09:46; Status Cancel Thiamine Mononitrate (Vitamin B-1) 100 mg DAILY PO Last administered on 09:27; Start 08/17/16 at 17:00 Comment Review of Relevant I have reviewed the following items chikis (where applicable) has been applied. ADONIS HUITRON MD Aug 18, 2016 14:51
[2016-08-18] MEDS: ENOXAPARIN 40 MG/0.4 ML SYRINGE. SQ SCH (14:58)
[2016-08-19] MEDS: fentaNYL PF VIAL 100 MCG/2 ML VIAL IV PRN ×5 (01:42→15:12)
[2016-08-19 04:25] LABS: BASO # 0.4 x10^3/uL (0.0-0.2); BASO % 3 % (0-3); EOS % 1 % (0-3); HEMATOCRIT 34.6 % (39.0-53.0); HEMOGLOBIN 12.1 g/dL (13.0-17.5); LYMPH % 7 % (24-48); MEAN CORPUSCULAR HEMOGLOBIN 33 pg (25-35); MEAN CORPUSCULAR HGB CONC 35 g/dL (31-37); MEAN CORPUSCULAR VOLUME 94 fL (79-100); MONO % 6 % (0-9); NEUT % 84 % (31-73); PLATELET COUNT 760 x10^3/uL (140-400); RED BLOOD COUNT 3.68 x10^6/uL (4.30-5.70); RED CELL DISTRIBUTION WIDTH 13.2 % (11.5-14.5); WHITE BLOOD COUNT 14.5 x10^3/uL (4.0-11.0)
--- NOTE | 2016-08-19 04:32 | RAD ---
INDICATION: NG tube placement COMPARISON: August 14, 2016 IMPRESSION: Single frontal view of abdomen obtained. There is a feeding tube identified within the lower chest which appears bent near the tip with the tip pointed superiorly likely within the distal esophagus. Coarse interstitial opacities in the lower lungs partially visualized. Could be from edema or infiltrate. Air-filled dilated loop of small bowel in the upper abdomen measuring up to about 29 mm. Would correlate with abdominal symptoms. Electronically signed by: Edilberto Yusuf MD (08/19/2016 4:29 AM)
--- NOTE | 2016-08-19 05:32 | RAD ---
INDICATION: ng placement COMPARISON: Earlier same day IMPRESSION: Single frontal view of the abdomen. Enteric tube with tip at left upper quadrant of abdomen, likely in stomach. Patchy opacities again seen in the partially visualized bilateral lower lungs as well as air-filled distention of loops of small bowel in the upper abdomen. Electronically signed by: Edilberto Yusuf MD (08/19/2016 5:29 AM)
[2016-08-19] MEDS: dilTIAZem HCL 30 MG TABLET PO SCH ×5 (05:54→23:46)
[2016-08-19 07:00] VITALS: BP 161/99
[2016-08-19] MEDS: IPRATROPIUM BROMIDE 0.5 MG/2.5 ML NEBU. NEB SCH ×4 (08:20→20:00)
--- NOTE | 2016-08-19 08:38 | RAD ---
Indication assess Dobbhoff feeding tube placement. A single view targeted to the lower chest and upper abdomen was obtained. The lung bases are clear. There is a Dobbhoff feeding tube in the body of the stomach. Abdominal gas pattern is unremarkable. IMPRESSION: Dobbhoff feeding tube in the body of the stomach
[2016-08-19] MEDS: THIAMINE 100 MG TABLET. PO SCH (08:54)
[2016-08-19] MEDS: ASPIRIN 325 MG TABLET FT SCH (08:54)
[2016-08-19] MEDS: METOPROLOL TART IMMED RELEASE 25 MG TABLET. FT SCH ×2 (08:55→21:13)
[2016-08-19] MEDS: rifAXIMin 550 MG TABLET PO SCH ×2 (08:56→21:13)
[2016-08-19] MEDS: POTASSIUM CHLORIDE 20 MEQ/15 ML ORAL LIQUID. PEG SCH ×3 (08:56→21:13)
[2016-08-19] MEDS: levETIRAcetam 500 MG TABLET PO SCH (08:56)
[2016-08-19] MEDS: LANSOPRAZOLE 30 MG TAB.RAP.DR FT SCH (08:57)
--- NOTE | 2016-08-19 09:35 | PDOC ---
PROGRESS NOTES Chief Complaint Chief Complaint [error] Nutrition Consultation Dietary Evaluation: Comments: Malnutrition Findings: Weight Status: Underweight CANDELARIA JARAMILLO MD Aug 19, 2016 09:35
[2016-08-19 11:00] VITALS: BP 138/91
--- NOTE | 2016-08-19 11:15 | PDOC ---
Subjective: Subjective: Frustrated w/ ongoing need for tube feeds. 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 Suspect ongoing dysphagia for awhile. Difficulty w/ placement/uninsured. Dobhoff out again, replaced. Vital Signs: Vital Signs Date Time Temp Pulse Resp B/P (MAP) Pulse Ox O2 Delivery O2 Flow Rate FiO2 08/19/16 10:00 20 95 Room Air 08/19/16 08:55 80 161/99 08/19/16 07:00 98.0 98.0 08/19/16 06:25 3.0 Labs: Laboratory Tests Test 08/19/16 03:40 White Blood Count 14.5 x10^3/uL Red Blood Count 3.68 x10^6/uL Hemoglobin 12.1 g/dL Hematocrit 34.6 % Mean Corpuscular Volume 94 fL Mean Corpuscular Hemoglobin 33 pg Mean Corpuscular Hemoglobin Concent 35 g/dL Red Cell Distribution Width 13.2 % Platelet Count 760 x10^3/uL Neutrophils (%) (Auto) 84 % Lymphocytes (%) (Auto) 7 % Monocytes (%) (Auto) 6 % Eosinophils (%) (Auto) 1 % Basophils (%) (Auto) 3 % Neutrophils # (Auto) 12.2 x10^3uL Lymphocytes # (Auto) 1.0 x10^3/uL Monocytes # (Auto) 0.8 x10^3/uL Eosinophils # (Auto) 0.1 x10^3/uL Basophils # (Auto) 0.4 x10^3/uL Imaging: KUB 08/19/16 IMPRESSION: Dobbhoff feeding tube in the body of the stomach. 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 Not a good PEG candidate. CHEN LAURENT Aug 19, 2016 11:15
[2016-08-19] MEDS: ENOXAPARIN 40 MG/0.4 ML SYRINGE. SQ SCH (14:57)
[2016-08-19 15:00] VITALS: BP 123/55
--- NOTE | 2016-08-19 15:24 | PDOC ---
PROGRESS NOTES Chief Complaint Chief Complaint Seizure like activity ASSESSMENT AND PLAN: 1. Acute hypoxic respiratory failure: extubated 08/09, on NC 2. Hepatic encephalopathy: improved. cont rifamyxin. suspect some component of dementia as well 3. EtOH/ HCV cirrhosis: endstage 4. EtOH related seizures: CIWA protocol stopped. still on low dose keppra, taper as per Dr Van 5. Debility: due to EtOH abuse, poor nutrition 6. Dysphagia: failed swallow study; Dobhoff in place; no plans for PEG placement due to excessive risk with cirrhosis 7. Malnutrition: severe. on NG feeds ATC 8. Paroxysmal Afib: on Cardizem, rate well controlled. 8. Hypokalemia: replaced. monitor 9. Back pain: positional; advised to sit in chair, move around more. lortab liquid PRN, stop fentanyl 9. Dispo: uninsured. with current and chronic medical issues, pt will never be able to hold a job. needs M.aid. dispo to home not a good option in short term (next 2 months), given need for nutrition, high risk of complications and compliance. History of Present Illness History of Present Illness Dobhoff bothers him, had to be replaced after he accidentally pulled it (twice) Vitals Vitals Vital Signs Date Time Temp Pulse Resp B/P (MAP) Pulse Ox O2 Delivery O2 Flow Rate FiO2 08/19/16 12:02 63 138/91 08/19/16 11:57 Room Air 08/19/16 11:00 98.0 18 98 98.0 08/19/16 08:00 3.5 Physical Exam General: Alert, Cooperative, No acute distress, Other (not oritend to time) Heart: Normal S1, Normal S2, No murmurs Lungs: Clear, Other (decrease bs) Abdomen: Normal bowel sounds Extremities: No edema Skin: No rashes Labs LABS Laboratory Tests Test 08/19/16 03:40 White Blood Count 14.5 x10^3/uL (4.0-11.0) Red Blood Count 3.68 x10^6/uL (4.30-5.70) Hemoglobin 12.1 g/dL (13.0-17.5) Hematocrit 34.6 % (39.0-53.0) Mean Corpuscular Volume 94 fL (79-100) Mean Corpuscular Hemoglobin 33 pg (25-35) Mean Corpuscular Hemoglobin Concent 35 g/dL (31-37) Red Cell Distribution Width 13.2 % (11.5-14.5) Platelet Count 760 x10^3/uL (140-400) Neutrophils (%) (Auto) 84 % (31-73) Lymphocytes (%) (Auto) 7 % (24-48) Monocytes (%) (Auto) 6 % (0-9) Eosinophils (%) (Auto) 1 % (0-3) Basophils (%) (Auto) 3 % (0-3) Neutrophils # (Auto) 12.2 x10^3uL (1.8-7.7) Lymphocytes # (Auto) 1.0 x10^3/uL (1.0-4.8) Monocytes # (Auto) 0.8 x10^3/uL (0.0-1.1) Eosinophils # (Auto) 0.1 x10^3/uL (0.0-0.7) Basophils # (Auto) 0.4 x10^3/uL (0.0-0.2) Nutrition Consultation Dietary Evaluation: Recommendations by RD: Increase Calorie Intake Comments: Rec. continue the TF's until able to pass speech evaluation Fibersource HN, goal rate 55 ml/hr start at 25 ml/hr, increase by 25 ml/hr q8h to goal rate flushes 140 cc q6h if no IVF's running Expected Outcomes/Goals: tolerate TF's at goal rate - met no further wt loss while in the hospital - met Malnutrition Findings: Food and Nutrition Intake (Mod: <75% est energy req 7days Reduced Home Improvement Contractor Strength: N/A Reduced Home Improvement Contractor Strength (Non-Sev: N/A Malnutrition related to morbid: No Weight Status: Underweight Fluid Accumulation (N/A): N/A CANDELARIA JARAMILLO MD Aug 19, 2016 15:24
--- NOTE | 2016-08-19 16:30 | PDOC ---
PROGRESS NOTES Assessment Assessment Seizure x 2 on 08/08/16, alcohol related. Metabolic encephalopathy. Toxic encephalopathy. Respiratory failure. Tiny right frontal and parietal junction infract. Alcoholic. Lactic acidosis. HCV Cannabinoids positive. RECOMMENDATIONS/PLAN: Continue Keppra, decrease to 125 mg bid and will taper it off in 1-2 weeks. Continue ASA daily. Treat medical diseases. OT/PT Discussed with his at bedside on 08/17/16. EEG on 08/10/16 showed diffuse encephalopathy. Brain MRI: Tiny infract in right frontal and parietal junction. PAST MEDICAL HISTORY: Hep C cirrhosis, alcoholism, chronic nausea, vomiting, abdominal pain and narcotic addiction. FAMILY HISTORY: Unknown. SOCIAL HISTORY: Lives with his . Heavy alcohol 8-10 beers and wine a day x 40 years. Smoking 2 packs a day x 40 years. Marijuana use. ALLERGIES: No known drug allergies. REVIEW OF SYSTEMS: Constitutional: Mild malnutrition. Head: No recent traumatic brain or head injury. Skin: No edema, or rash. Ear: No infection, tinnitus. Eyes: No vision loss, or diplopia. Nose: No bleeding or purulent discharges. Hearing: No hearing decrease. Neck: No injury. Cardiac: No [place] Pulmonary: No pneumonia. GI: No GI Ulcer, GI bleeding Urinary/genital: No dysuria, hematuria, incontinence. Endocrine: No cousin face, craniofacial dysmorphism, polydactyly. Skeletomuscular: No muscular atrophy, deformity. Neurological: see HP. Psychiatric:Alcohol, smoking, marijuana. Otherwise, not [id number] review of systems. PHYSICAL EXAMINATION: General appearance in no acute distress. HEENT: Normocephalic and nontraumatic. Eyes, nose, ears, and throat are unremarkable. Neck is supple. No lymphadenopathy. No Crepitus. Cardiovascular: S1, S2, regular rate and rhythm. Pulmonary: relative clear to auscultation bilaterally. Abdomen: Bowel sounds are positive. Abdomen is soft, nontender, and nondistended. Extremities: No rash, lesions, or edema. No restriction of range of motion NEUROLOGICAL EXAMINATION: Awake. Partially oriented to time, and knows place and person. PERRL. EOMI. CN: no focal findings. Muscle tone: within normal. Muscle strength: 4-5 DTR: 2 Plantar reflex: Neutral response bilaterally Gait: Not examed in bed. Sensory exam: No acute deficits found. Not acute cerebellar signs elicited. Objective Objective Vital Signs Date Time Temp Pulse Resp B/P (MAP) Pulse Ox O2 Delivery O2 Flow Rate FiO2 08/19/16 15:42 Room Air 08/19/16 15:12 20 98 08/19/16 15:00 98.0 79 123/55 (77) 98.0 08/19/16 08:00 3.5 Intake and Output 08/19/16 07:00 Intake Total 2720 ml Output Total 200 ml Balance 2520 ml Intake Oral 0 ml IV Total 900 ml Tube Feeding 1820 ml Output Urine Total 200 ml # Voids 2 # Bowel Movements 2 Vitals Signs Vitals VS - Last 72 Hours, by Label Date Time Temp Pulse Resp B/P (MAP) Pulse Ox O2 Delivery O2 Flow Rate FiO2 08/19/16 15:42 Room Air 08/19/16 15:12 20 98 Room Air 08/19/16 15:00 98.0 79 18 123/55 (77) 97 Room Air 98.0 08/19/16 12:02 63 138/91 08/19/16 11:57 Room Air 08/19/16 11:00 98.0 63 18 138/91 (107) 98 Room Air 98.0 08/19/16 10:30 20 95 Room Air 08/19/16 10:00 20 95 Room Air 08/19/16 08:55 80 161/99 08/19/16 08:21 95 Room Air 08/19/16 08:00 3.5 08/19/16 07:00 98.0 80 18 161/99 (119) 97 Room Air 98.0 08/19/16 06:25 3.0 08/19/16 05:55 98 Room Air 3.0 08/19/16 04:01 98 Room Air 3.0 08/19/16 01:42 98 Room Air 3.0 08/19/16 00:00 58 150/89 08/18/16 23:00 99.1 58 18 150/89 (109) 98 Room Air 99.1 08/18/16 21:07 100 Room Air 3.0 08/18/16 21:06 66 146/87 08/18/16 20:00 Room Air 3.0 08/18/16 19:35 100 Room Air 08/18/16 19:00 98.8 66 18 146/87 (106) 98 Room Air 98.8 08/18/16 17:50 67 150/82 08/18/16 17:41 Room Air 08/18/16 17:00 97.9 67 18 150/82 (104) 98 Room Air 97.9 08/18/16 15:59 Room Air 08/18/16 15:00 98.3 60 20 133/81 (98) 98 Room Air 98.3 08/18/16 13:14 98 Room Air 3.0 08/18/16 13:13 59 128/74 08/18/16 11:59 Room Air 08/18/16 11:00 98.1 59 20 128/74 (92) 98 Room Air 98.1 08/18/16 09:27 71 169/86 08/18/16 08:20 98 Room Air 08/18/16 08:00 Room Air 08/18/16 07:30 98.3 71 22 169/86 (113) 98 Room Air 98.3 Laboratory Laboratory Laboratory Tests Test 08/19/16 03:40 White Blood Count 14.5 x10^3/uL (4.0-11.0) Red Blood Count 3.68 x10^6/uL (4.30-5.70) Hemoglobin 12.1 g/dL (13.0-17.5) Hematocrit 34.6 % (39.0-53.0) Mean Corpuscular Volume 94 fL (79-100) Mean Corpuscular Hemoglobin 33 pg (25-35) Mean Corpuscular Hemoglobin Concent 35 g/dL (31-37) Red Cell Distribution Width 13.2 % (11.5-14.5) Platelet Count 760 x10^3/uL (140-400) Neutrophils (%) (Auto) 84 % (31-73) Lymphocytes (%) (Auto) 7 % (24-48) Monocytes (%) (Auto) 6 % (0-9) Eosinophils (%) (Auto) 1 % (0-3) Basophils (%) (Auto) 3 % (0-3) Neutrophils # (Auto) 12.2 x10^3uL (1.8-7.7) Lymphocytes # (Auto) 1.0 x10^3/uL (1.0-4.8) Monocytes # (Auto) 0.8 x10^3/uL (0.0-1.1) Eosinophils # (Auto) 0.1 x10^3/uL (0.0-0.7) Basophils # (Auto) 0.4 x10^3/uL (0.0-0.2) Microbiology 08/11/16 Blood Culture - Final, Complete NO GROWTH AFTER 5 DAYS 08/11/16 Urine Culture - Final, Complete 08/11/16 Urine Culture Result 1 (JENNY) - Final, Complete 08/11/16 Antimicrobic Susceptibility - Final, Complete Medication Medications Current Medications Acetaminophen/ Hydrocodone Bitart (Lortab 7.5-325/ 15ml Oral Solution) 10 ml PRN Q6HRS PRN NG PAIN; Start 08/19/16 at 15:15 Lansoprazole (Prevacid) 30 mg DAILY FT Last administered on 08/19/16t 08:57; Start 08/19/16 at 09:00 Comment Review of Relevant I have reviewed the following items chikis (where applicable) has been applied. ADONIS HUITRON MD Aug 19, 2016 16:30
[2016-08-19] MEDS: HYDROcodon/APAP 7.5/325MG ORAL 15 ML SOLUTION NG PRN ×2 (17:28→23:46)
[2016-08-19 19:00] VITALS: BP 123/82
[2016-08-19] MEDS: levETIRAcetam 250 MG TABLET PO SCH (21:13)
[2016-08-19] MEDS: ACETAMINOPHEN 650 MG/20.3 ML SOLUTION. PEG PRN (21:13)
[2016-08-19 23:00] VITALS: BP 152/93
[2016-08-20] MEDS: dilTIAZem HCL 30 MG TABLET PO SCH ×4 (02:24→18:11)
[2016-08-20 03:00] VITALS: BP 152/102
[2016-08-20] MEDS: HYDROcodon/APAP 7.5/325MG ORAL 15 ML SOLUTION NG PRN ×3 (05:48→18:12)
[2016-08-20 07:00] VITALS: BP 119/71
[2016-08-20 07:26] LABS: BASO # 0.1 x10^3/uL (0.0-0.2); BASO % 1 % (0-3); EOS % 1 % (0-3); HEMATOCRIT 35.8 % (39.0-53.0); HEMOGLOBIN 12.2 g/dL (13.0-17.5); LYMPH # 1.4 x10^3/uL (1.0-4.8); LYMPH % 15 % (24-48); MEAN CORPUSCULAR HEMOGLOBIN 33 pg (25-35); MEAN CORPUSCULAR HGB CONC 34 g/dL (31-37); MEAN CORPUSCULAR VOLUME 96 fL (79-100); MONO % 8 % (0-9); NEUT % 76 % (31-73); PLATELET COUNT 723 x10^3/uL (140-400); RED BLOOD COUNT 3.72 x10^6/uL (4.30-5.70); RED CELL DISTRIBUTION WIDTH 13.7 % (11.5-14.5); WHITE BLOOD COUNT 9.4 x10^3/uL (4.0-11.0)
[2016-08-20 07:37] LABS: ALBUMIN 2.8 g/dL (3.4-5.0); ALBUMIN/GLOBULIN RATIO 0.7 (1.0-1.7); CALCIUM 8.7 mg/dL (8.5-10.1); CREATININE 0.6 mg/dL (0.7-1.3); GFR 135.6; TOTAL BILIRUBIN 0.4 mg/dL (0.2-1.0); TOTAL PROTEIN 6.9 g/dL (6.4-8.2)
[2016-08-20 07:39] LABS: POTASSIUM 4.2 mmol/L (3.5-5.1)
[2016-08-20] MEDS: IPRATROPIUM BROMIDE 0.5 MG/2.5 ML NEBU. NEB SCH ×4 (07:52→18:59)
[2016-08-20] MEDS: ASPIRIN 325 MG TABLET FT SCH (08:15)
[2016-08-20] MEDS: METOPROLOL TART IMMED RELEASE 25 MG TABLET. FT SCH ×2 (08:15→20:48)
[2016-08-20] MEDS: LANSOPRAZOLE 30 MG TAB.RAP.DR FT SCH (08:16)
[2016-08-20] MEDS: POTASSIUM CHLORIDE 20 MEQ/15 ML ORAL LIQUID. PEG SCH ×3 (08:17→20:48)
[2016-08-20] MEDS: THIAMINE 100 MG TABLET. PO SCH (08:18)
[2016-08-20] MEDS: rifAXIMin 550 MG TABLET PO SCH ×2 (08:18→20:49)
[2016-08-20] MEDS: levETIRAcetam 250 MG TABLET PO SCH ×2 (08:18→20:49)
[2016-08-20 11:00] VITALS: BP 124/81
--- NOTE | 2016-08-20 12:30 | PDOC ---
PROGRESS NOTES Chief Complaint Chief Complaint Seizure like activity ASSESSMENT AND PLAN: 1. Acute hypoxic respiratory failure: extubated 08/09, on NC 2. Hepatic encephalopathy: improved. cont rifamyxin. suspect some component of dementia as well 3. EtOH/ HCV cirrhosis: endstage 4. EtOH related seizures: CIWA protocol stopped. still on low dose keppra, taper as per Dr Van 5. Debility: due to EtOH abuse, poor nutrition 6. Dysphagia: failed swallow study; Dobhoff in place; no plans for PEG placement due to excessive risk with cirrhosis 7. Malnutrition: severe. on NG feeds ATC 8. Paroxysmal Afib: on Cardizem, rate well controlled. 8. Hypokalemia: replaced. monitor 9. Back pain: positional; advised to sit in chair, move around more. lortab liquid PRN 9. Dispo: dispo to home not a good option in short term (next 2 months), given need for nutrition, high risk of complications and compliance. placement difficult w/o insurance History of Present Illness History of Present Illness essentially unchanged. c/o ongoing back pain Vitals Vitals Vital Signs Date Time Temp Pulse Resp B/P (MAP) Pulse Ox O2 Delivery O2 Flow Rate FiO2 08/20/16 12:05 20 98 Room Air 08/20/16 12:04 60 124/81 08/20/16 11:00 97.9 97.9 08/20/16 06:48 3.5 Physical Exam General: Alert, Cooperative, No acute distress Heart: Regular rate Lungs: Clear Abdomen: Normal bowel sounds, No tenderness, Other (NG in place) Extremities: No clubbing, No cyanosis, No edema Skin: No significant lesion Labs LABS Laboratory Tests Test 08/20/16 06:30 White Blood Count 9.4 x10^3/uL (4.0-11.0) Red Blood Count 3.72 x10^6/uL (4.30-5.70) Hemoglobin 12.2 g/dL (13.0-17.5) Hematocrit 35.8 % (39.0-53.0) Mean Corpuscular Volume 96 fL (79-100) Mean Corpuscular Hemoglobin 33 pg (25-35) Mean Corpuscular Hemoglobin Concent 34 g/dL (31-37) Red Cell Distribution Width 13.7 % (11.5-14.5) Platelet Count 723 x10^3/uL (140-400) Neutrophils (%) (Auto) 76 % (31-73) Lymphocytes (%) (Auto) 15 % (24-48) Monocytes (%) (Auto) 8 % (0-9) Eosinophils (%) (Auto) 1 % (0-3) Basophils (%) (Auto) 1 % (0-3) Neutrophils # (Auto) 7.1 x10^3uL (1.8-7.7) Lymphocytes # (Auto) 1.4 x10^3/uL (1.0-4.8) Monocytes # (Auto) 0.7 x10^3/uL (0.0-1.1) Eosinophils # (Auto) 0.1 x10^3/uL (0.0-0.7) Basophils # (Auto) 0.1 x10^3/uL (0.0-0.2) Sodium Level 135 mmol/L (136-145) Potassium Level 4.2 mmol/L (3.5-5.1) Chloride Level 98 mmol/L (98-107) Carbon Dioxide Level 23 mmol/L (21-32) Anion Gap 14 (6-14) Blood Urea Nitrogen 16 mg/dL (8-26) Creatinine 0.6 mg/dL (0.7-1.3) Estimated GFR (Cockcroft-Gault) 135.6 BUN/Creatinine Ratio 27 (6-20) Glucose Level 124 mg/dL (70-99) Calcium Level 8.7 mg/dL (8.5-10.1) Total Bilirubin 0.4 mg/dL (0.2-1.0) Aspartate Amino Transf (AST/SGOT) 34 U/L (15-37) Alanine Aminotransferase (ALT/SGPT) 63 U/L (16-63) Alkaline Phosphatase 96 U/L (46-116) Total Protein 6.9 g/dL (6.4-8.2) Albumin 2.8 g/dL (3.4-5.0) Albumin/Globulin Ratio 0.7 (1.0-1.7) Comment Review of Relevant Labs Medications Vitals/I & O Nutrition Consultation Dietary Evaluation: Comments: Rec. continue the TF's until able to pass speech evaluation, may take up to another 10-14 days which is appropriate to contine NG Tf up to total of ~30 days short term Expected Outcomes/Goals: tolerate TF's at goal rate - goal ongoing diet adv Malnutrition Findings: Food and Nutrition Intake (Mod: <75% est energy req 7days Body Fat Depletion (Non Severe: Mod to Severe Reduced Lineman A Class Strength: N/A Reduced Lineman A Class Strength (Non-Sev: N/A Weight Status: Underweight Fluid Accumulation (N/A): N/A CANDELARIA JARAMILLO MD Aug 20, 2016 12:30
--- NOTE | 2016-08-20 13:34 | PDOC ---
Subjective: Subjective: Doing okay. "Not in love with the feeding tube." Objective: Vital Signs: Vital Signs Date Time Temp Pulse Resp B/P (MAP) Pulse Ox O2 Delivery O2 Flow Rate FiO2 08/20/16 13:05 20 98 Room Air 08/20/16 12:04 60 124/81 08/20/16 11:00 97.9 97.9 08/20/16 06:48 3.5 Labs: Laboratory Tests Test 08/20/16 06:30 White Blood Count 9.4 x10^3/uL Red Blood Count 3.72 x10^6/uL Hemoglobin 12.2 g/dL Hematocrit 35.8 % Mean Corpuscular Volume 96 fL Mean Corpuscular Hemoglobin 33 pg Mean Corpuscular Hemoglobin Concent 34 g/dL Red Cell Distribution Width 13.7 % Platelet Count 723 x10^3/uL Neutrophils (%) (Auto) 76 % Lymphocytes (%) (Auto) 15 % Monocytes (%) (Auto) 8 % Eosinophils (%) (Auto) 1 % Basophils (%) (Auto) 1 % Neutrophils # (Auto) 7.1 x10^3uL Lymphocytes # (Auto) 1.4 x10^3/uL Monocytes # (Auto) 0.7 x10^3/uL Eosinophils # (Auto) 0.1 x10^3/uL Basophils # (Auto) 0.1 x10^3/uL Sodium Level 135 mmol/L Potassium Level 4.2 mmol/L Chloride Level 98 mmol/L Carbon Dioxide Level 23 mmol/L Anion Gap 14 Blood Urea Nitrogen 16 mg/dL Creatinine 0.6 mg/dL Estimated GFR (Cockcroft-Gault) 135.6 BUN/Creatinine Ratio 27 Glucose Level 124 mg/dL Calcium Level 8.7 mg/dL Total Bilirubin 0.4 mg/dL Aspartate Amino Transf (AST/SGOT) 34 U/L Alanine Aminotransferase (ALT/SGPT) 63 U/L Alkaline Phosphatase 96 U/L Total Protein 6.9 g/dL Albumin 2.8 g/dL Albumin/Globulin Ratio 0.7 PE: GEN: NAD, voice hoarse/raspy LUNGS: CTAB HEART: RRR ABD: S/ND/NT NEURO/PSYCH: A & O 3 A/P: Alcoholism, Hep C, encephalopathy, dysphagia -on Xifaxan -NPO w/ Dobhoff -- Difficult situation - uninsured w/ debility requiring tube feeds, not a good PEG candidate. CHEN LAURENT Aug 20, 2016 13:34
--- NOTE | 2016-08-20 14:06 | PDOC ---
PROGRESS NOTES Assessment Assessment Seizure x 2 on 08/08/16, alcohol related. Metabolic encephalopathy. Toxic encephalopathy. Respiratory failure. Tiny right frontal and parietal junction infract. Alcoholic. Lactic acidosis. HCV Cannabinoids positive. RECOMMENDATIONS/PLAN: Continue Keppra, decrease to 125 mg bid and will taper it off in 2-3 days. Continue ASA daily. Treat medical diseases. OT/PT Discussed with his at bedside on 08/17/16. EEG on 08/10/16 showed diffuse encephalopathy. Brain MRI: Tiny infract in right frontal and parietal junction. PAST MEDICAL HISTORY: Hep C cirrhosis, alcoholism, chronic nausea, vomiting, abdominal pain and narcotic addiction. FAMILY HISTORY: Unknown. SOCIAL HISTORY: Lives with his . Heavy alcohol 8-10 beers and wine a day x 40 years. Smoking 2 packs a day x 40 years. Marijuana use. ALLERGIES: No known drug allergies. REVIEW OF SYSTEMS: Constitutional: Mild malnutrition. Head: No recent traumatic brain or head injury. Skin: No edema, or rash. Ear: No infection, tinnitus. Eyes: No vision loss, or diplopia. Nose: No bleeding or purulent discharges. Hearing: No hearing decrease. Neck: No injury. Cardiac: No [place] Pulmonary: No pneumonia. GI: No GI Ulcer, GI bleeding Urinary/genital: No dysuria, hematuria, incontinence. Endocrine: No cousin face, craniofacial dysmorphism, polydactyly. Skeletomuscular: No muscular atrophy, deformity. Neurological: see HP. Psychiatric:Alcohol, smoking, marijuana. Otherwise, not -sjetj review of systems. PHYSICAL EXAMINATION: General appearance in no acute distress. HEENT: Normocephalic and nontraumatic. Eyes, nose, ears, and throat are unremarkable. Neck is supple. No lymphadenopathy. No Crepitus. Cardiovascular: S1, S2, regular rate and rhythm. Pulmonary: relative clear to auscultation bilaterally. Abdomen: Bowel sounds are positive. Abdomen is soft, nontender, and nondistended. Extremities: No rash, lesions, or edema. No restriction of range of motion NEUROLOGICAL EXAMINATION: Awake. Partially oriented to time, and knows place and person. PERRL. EOMI. CN: no focal findings. Muscle tone: within normal. Muscle strength: 4-5 DTR: 2 Plantar reflex: Neutral response bilaterally Gait: Not examed in bed. Sensory exam: No acute deficits found. Not acute cerebellar signs elicited. Objective Objective Vital Signs Date Time Temp Pulse Resp B/P (MAP) Pulse Ox O2 Delivery O2 Flow Rate FiO2 08/20/16 13:05 20 98 Room Air 08/20/16 12:04 60 124/81 08/20/16 11:00 97.9 97.9 08/20/16 06:48 3.5 Intake and Output 08/20/16 07:00 Intake Total 280 ml Output Total 350 ml Balance -70 ml Tube Feeding 280 ml Output Urine Total 350 ml # Voids 6 # Bowel Movements 1 Vitals Signs Vitals VS - Last 72 Hours, by Label Date Time Temp Pulse Resp B/P (MAP) Pulse Ox O2 Delivery O2 Flow Rate FiO2 08/20/16 13:05 20 98 Room Air 08/20/16 12:05 20 98 Room Air 08/20/16 12:04 60 124/81 08/20/16 11:29 Room Air 08/20/16 11:00 97.9 59 18 124/81 (95) 100 Room Air 97.9 08/20/16 08:15 65 119/71 08/20/16 08:00 Room Air 08/20/16 07:54 98 Room Air 08/20/16 07:00 97.9 65 16 119/71 (87) 97 Room Air 97.9 08/20/16 06:48 3.5 08/20/16 05:49 110 145/98 08/20/16 05:48 97 Room Air 3.5 08/20/16 03:00 97.9 73 18 152/102 (119) 97 Room Air 97.9 08/20/16 02:24 73 152/102 08/19/16 23:46 97 Room Air 3.5 08/19/16 23:00 97.9 56 18 152/93 (112) 97 Room Air 97.9 08/19/16 21:13 67 123/82 08/19/16 19:47 Room Air 3.5 08/19/16 19:00 98.1 67 18 123/82 (96) 97 Room Air 98.1 08/19/16 17:28 92 Room Air 08/19/16 17:27 79 123/55 08/19/16 15:42 Room Air 08/19/16 15:12 20 98 Room Air 08/19/16 15:00 98.0 79 18 123/55 (77) 97 Room Air 98.0 08/19/16 12:02 63 138/91 08/19/16 11:57 Room Air 08/19/16 11:00 98.0 63 18 138/91 (107) 98 Room Air 98.0 08/19/16 10:30 20 95 Room Air 08/19/16 10:00 20 95 Room Air 08/19/16 08:55 80 161/99 08/19/16 08:21 95 Room Air 08/19/16 08:00 3.5 08/19/16 07:00 98.0 80 18 161/99 (119) 97 Room Air 98.0 Laboratory Laboratory Laboratory Tests Test 08/20/16 06:30 White Blood Count 9.4 x10^3/uL (4.0-11.0) Red Blood Count 3.72 x10^6/uL (4.30-5.70) Hemoglobin 12.2 g/dL (13.0-17.5) Hematocrit 35.8 % (39.0-53.0) Mean Corpuscular Volume 96 fL (79-100) Mean Corpuscular Hemoglobin 33 pg (25-35) Mean Corpuscular Hemoglobin Concent 34 g/dL (31-37) Red Cell Distribution Width 13.7 % (11.5-14.5) Platelet Count 723 x10^3/uL (140-400) Neutrophils (%) (Auto) 76 % (31-73) Lymphocytes (%) (Auto) 15 % (24-48) Monocytes (%) (Auto) 8 % (0-9) Eosinophils (%) (Auto) 1 % (0-3) Basophils (%) (Auto) 1 % (0-3) Neutrophils # (Auto) 7.1 x10^3uL (1.8-7.7) Lymphocytes # (Auto) 1.4 x10^3/uL (1.0-4.8) Monocytes # (Auto) 0.7 x10^3/uL (0.0-1.1) Eosinophils # (Auto) 0.1 x10^3/uL (0.0-0.7) Basophils # (Auto) 0.1 x10^3/uL (0.0-0.2) Sodium Level 135 mmol/L (136-145) Potassium Level 4.2 mmol/L (3.5-5.1) Chloride Level 98 mmol/L (98-107) Carbon Dioxide Level 23 mmol/L (21-32) Anion Gap 14 (6-14) Blood Urea Nitrogen 16 mg/dL (8-26) Creatinine 0.6 mg/dL (0.7-1.3) Estimated GFR (Cockcroft-Gault) 135.6 BUN/Creatinine Ratio 27 (6-20) Glucose Level 124 mg/dL (70-99) Calcium Level 8.7 mg/dL (8.5-10.1) Total Bilirubin 0.4 mg/dL (0.2-1.0) Aspartate Amino Transf (AST/SGOT) 34 U/L (15-37) Alanine Aminotransferase (ALT/SGPT) 63 U/L (16-63) Alkaline Phosphatase 96 U/L (46-116) Total Protein 6.9 g/dL (6.4-8.2) Albumin 2.8 g/dL (3.4-5.0) Albumin/Globulin Ratio 0.7 (1.0-1.7) Microbiology 08/11/16 Blood Culture - Final, Complete NO GROWTH AFTER 5 DAYS 08/11/16 Urine Culture - Final, Complete 08/11/16 Urine Culture Result 1 (JENNY) - Final, Complete 08/11/16 Antimicrobic Susceptibility - Final, Complete Medication Medications Current Medications Acetaminophen/ Hydrocodone Bitart (Lortab 7.5-325/ 15ml Oral Solution) 10 ml PRN Q6HRS PRN NG MODERATE TO SEVERE PAIN Last administered on 08/20/16 12:05; Start 08/19/16 at 15:15 Levetiracetam (Keppra) 125 mg BID PO Last administered on 08/20/16 08:18; Start 08/19/16 at 21:00 Comment Review of Relevant I have reviewed the following items chikis (where applicable) has been applied. ADONIS HUITRON MD Aug 20, 2016 14:06
[2016-08-20 14:48] VITALS: BP 109/70
[2016-08-20] MEDS: ENOXAPARIN 40 MG/0.4 ML SYRINGE. SQ SCH (15:50)
[2016-08-20 19:00] VITALS: BP 126/84
[2016-08-20 23:00] VITALS: BP 154/100
[2016-08-21] MEDS: dilTIAZem HCL 30 MG TABLET PO SCH ×4 (00:13→18:00)
[2016-08-21] MEDS: HYDROcodon/APAP 7.5/325MG ORAL 15 ML SOLUTION NG PRN ×4 (00:14→20:40)
[2016-08-21 03:00] VITALS: BP 123/85
[2016-08-21 07:00] VITALS: BP 114/74
[2016-08-21] MEDS: IPRATROPIUM BROMIDE 0.5 MG/2.5 ML NEBU. NEB SCH ×4 (07:25→19:14)
[2016-08-21] MEDS: levETIRAcetam 250 MG TABLET PO SCH (08:08)
[2016-08-21] MEDS: METOPROLOL TART IMMED RELEASE 25 MG TABLET. FT SCH ×2 (08:08→20:42)
[2016-08-21] MEDS: LANSOPRAZOLE 30 MG TAB.RAP.DR FT SCH (08:09)
[2016-08-21] MEDS: THIAMINE 100 MG TABLET. PO SCH (08:09)
[2016-08-21] MEDS: ASPIRIN 325 MG TABLET FT SCH (08:09)
[2016-08-21] MEDS: POTASSIUM CHLORIDE 20 MEQ/15 ML ORAL LIQUID. PEG SCH ×3 (08:10→20:39)
[2016-08-21] MEDS: rifAXIMin 550 MG TABLET PO SCH ×2 (09:54→20:39)
[2016-08-21 11:00] VITALS: BP 95/55
--- NOTE | 2016-08-21 11:46 | PDOC ---
PROGRESS NOTES Chief Complaint Chief Complaint Seizure like activity ASSESSMENT AND PLAN: 1. Acute hypoxic respiratory failure: extubated 08/09, on NC 2. Hepatic encephalopathy: improved. cont rifamyxin. suspect some component of dementia as well 3. EtOH/ HCV cirrhosis: endstage 4. EtOH related seizures: CIWA protocol stopped. still on low dose keppra, taper as per Dr Van 5. Debility: due to EtOH abuse, poor nutrition 6. Dysphagia: failed swallow study; Dobhoff in place; no plans for PEG placement due to excessive risk with cirrhosis 7. Malnutrition: severe. on NG feeds ATC 8. Paroxysmal Afib: on Cardizem, rate well controlled. 8. Hypokalemia: replaced. monitor 9. Back pain: positional; advised to sit in chair, move around more. lortab liquid PRN 9. Dispo: dispo to home not a good option in short term (next 2 months), given need for nutrition, high risk of complications and compliance. placement difficult w/o insurance History of Present Illness History of Present Illness Seen and examined VSS Has a dobhoff at 55 cc/hr Want to go home Vitals Vitals Vital Signs Date Time Temp Pulse Resp B/P (MAP) Pulse Ox O2 Delivery O2 Flow Rate FiO2 08/21/16 11:29 99 Room Air 08/21/16 11:00 98.0 84 18 95/55 (68) 98.0 08/21/16 08:00 3.5 Physical Exam General: Alert, Cooperative, No acute distress Heart: Regular rate Lungs: Clear Abdomen: Normal bowel sounds, No tenderness, Other (NG in place) Extremities: No clubbing, No cyanosis, No edema Skin: No significant lesion Review of Systems Review of Systems co anxiety co boredom Assessment and Plan Assessmemt and Plan Problems Medical Problems: (1) Alcohol withdrawal Status: Acute (2) Hepatic encephalopathy Status: Acute (3) Lactic acid acidosis Status: Acute (4) Respiratory failure Status: Acute Seizure like activity ASSESSMENT AND PLAN: 1. Acute hypoxic respiratory failure: extubated 08/09, on NC 2. Hepatic encephalopathy: improved. cont rifamyxin. suspect some component of dementia as well 3. EtOH/ HCV cirrhosis: endstage 4. EtOH related seizures: CIWA protocol stopped. still on low dose keppra, taper as per Dr Van 5. Debility: due to EtOH abuse, poor nutrition 6. Dysphagia: failed swallow study; Dobhoff in place; no plans for PEG placement due to excessive risk with cirrhosis 7. Malnutrition: severe. on NG feeds ATC 8. Paroxysmal Afib: on Cardizem, rate well controlled. 8. Hypokalemia: replaced. monitor 9. Back pain: positional; advised to sit in chair, move around more. lortab liquid PRN 9. Dispo: dispo to home not a good option in short term (next 2 months), given need for nutrition, high risk of complications and compliance. placement difficult w/o insurance Problems: Comment Review of Relevant I have reviewed the following items chiiks (where applicable) has been applied. Labs Laboratory Tests Test 08/20/16 06:30 White Blood Count 9.4 x10^3/uL (4.0-11.0) Red Blood Count 3.72 x10^6/uL (4.30-5.70) Hemoglobin 12.2 g/dL (13.0-17.5) Hematocrit 35.8 % (39.0-53.0) Mean Corpuscular Volume 96 fL (79-100) Mean Corpuscular Hemoglobin 33 pg (25-35) Mean Corpuscular Hemoglobin Concent 34 g/dL (31-37) Red Cell Distribution Width 13.7 % (11.5-14.5) Platelet Count 723 x10^3/uL (140-400) Neutrophils (%) (Auto) 76 % (31-73) Lymphocytes (%) (Auto) 15 % (24-48) Monocytes (%) (Auto) 8 % (0-9) Eosinophils (%) (Auto) 1 % (0-3) Basophils (%) (Auto) 1 % (0-3) Neutrophils # (Auto) 7.1 x10^3uL (1.8-7.7) Lymphocytes # (Auto) 1.4 x10^3/uL (1.0-4.8) Monocytes # (Auto) 0.7 x10^3/uL (0.0-1.1) Eosinophils # (Auto) 0.1 x10^3/uL (0.0-0.7) Basophils # (Auto) 0.1 x10^3/uL (0.0-0.2) Sodium Level 135 mmol/L (136-145) Potassium Level 4.2 mmol/L (3.5-5.1) Chloride Level 98 mmol/L (98-107) Carbon Dioxide Level 23 mmol/L (21-32) Anion Gap 14 (6-14) Blood Urea Nitrogen 16 mg/dL (8-26) Creatinine 0.6 mg/dL (0.7-1.3) Estimated GFR (Cockcroft-Gault) 135.6 BUN/Creatinine Ratio 27 (6-20) Glucose Level 124 mg/dL (70-99) Calcium Level 8.7 mg/dL (8.5-10.1) Total Bilirubin 0.4 mg/dL (0.2-1.0) Aspartate Amino Transf (AST/SGOT) 34 U/L (15-37) Alanine Aminotransferase (ALT/SGPT) 63 U/L (16-63) Alkaline Phosphatase 96 U/L (46-116) Total Protein 6.9 g/dL (6.4-8.2) Albumin 2.8 g/dL (3.4-5.0) Albumin/Globulin Ratio 0.7 (1.0-1.7) Microbiology 08/11/16 Blood Culture - Final, Complete NO GROWTH AFTER 5 DAYS 08/11/16 Urine Culture - Final, Complete 08/11/16 Urine Culture Result 1 (JENNY) - Final, Complete 08/11/16 Antimicrobic Susceptibility - Final, Complete Medications Current Medications Diltiazem HCl (Cardizem) 25 mg STK-MED ONCE .ROUTE ; Start 08/08/16 at 10:37; Stop 08/08/16 at 10:38; Status DC Diltiazem HCl 125 mg/Dextrose 125 ml @ 0 mls/hr CONT PRN IV SEE I/O RECORD Last administered on 08/12/16 06:20; Start 08/08/16 at 11:00; Stop 08/12/16 at 12:30; Status DC Diltiazem HCl (Cardizem) 20 mg 1X ONCE IVP Last administered on 08/08/16 10: 40; Start 08/08/16 at 11:00; Stop 08/08/16 at 11:01; Status DC Lorazepam (Ativan) 2 mg STK-MED ONCE .ROUTE ; Start 08/08/16 at 10:55; Stop 01/14 at 10:56; Status DC Iohexol (Omnipaque 350 Mg/ml) 90 ml 1X ONCE IV Last administered on 08/08/16 11:15; Start 08/08/16 at 11:15; Stop 08/08/16 at 11:16; Status DC Propofol 20 ml @ 0 mls/hr 1X ONCE IV Last administered on 08/08/16 11:20; Start 08/08/16 at 11:15; Stop 08/08/16 at 11:16; Status DC Info (Do NOT chart on this entry -- for MONITORING) 1 each PRN DAILY PRN MC SEE COMMENTS; Start 08/08/16 at 11:15; Stop 08/10/16 at 09:37; Status DC Fentanyl Citrate (Fentanyl 2ml Vial) 100 mcg 1X ONCE IV Last administered on 11:03; Start 08/08/16 at 11:15; Stop 08/08/16 at 11:16; Status DC Fentanyl Citrate (Fentanyl 2ml Vial) 100 mcg 1X ONCE IV Last administered on 11:16; Start 08/08/16 at 11:15; Stop 08/08/16 at 11:16; Status DC Propofol 50 ml @ As Directed STK-MED ONCE IV ; Start 08/08/16 at 11:17; Stop 01/14 at 11:18; Status DC Ondansetron HCl (Zofran) 4 mg PRN Q8HRS PRN IV NAUSEA/VOMITING; Start 08/08/16 at 11:30; Stop 08/09/16 at 11:29; Status DC Fentanyl Citrate (Fentanyl 2ml Vial) 50 mcg PRN Q2HR PRN IV PAIN Last administered on 08/08/16 13:16; Start 08/08/16 at 11:30; Stop 08/09/16 at 11:29 ; Status DC Levetiracetam 1000 mg/Sodium Chloride 110 ml @ 440 mls/hr 1X ONCE IV Last administered on 08/08/16 11:39; Start 08/08/16 at 11:45; Stop 08/08/16 at 11:59 ; Status DC Fentanyl Citrate (Fentanyl 2ml Vial) 100 mcg 1X ONCE IV ; Start 08/08/16 at 11: 45; Stop 08/08/16 at 11:46; Status DC Propofol 50 ml @ As Directed STK-MED ONCE IV ; Start 08/08/16 at 12:09; Stop 01/14 at 12:10; Status DC Lorazepam (Ativan) 2 mg 1X ONCE IV ; Start 08/08/16 at 13:00; Stop 08/08/16 at 13:01; Status DC Succinylcholine Chloride (Anectine) 100 mg 1X ONCE IV ; Start 08/08/16 at 13:00 ; Stop 08/08/16 at 13:01; Status DC Etomidate (Amidate) 20 mg 1X ONCE IV ; Start 08/08/16 at 13:00; Stop 08/08/16 at 13:01; Status DC Propofol 100 ml @ 0 mls/hr CONT PRN IV PER PROTOCOL Last administered on 09:08; Start 08/08/16 at 13:45; Stop 08/11/16 at 10:11; Status DC Fentanyl Citrate (Fentanyl 2ml Vial) 50 mcg PRN Q1HR PRN IV COMM Last administered on 08/19/16 15:12; Start 08/08/16 at 13:45; Stop 08/19/16 at 15:17 ; Status DC Chlorhexidine Gluconate (Peridex) 15 ml BID MM Last administered on 08/09/16 09:08; Start 08/08/16 at 21:00; Stop 08/10/16 at 08:29; Status DC Ipratropium [place] (Atrovent) 0.5 mg RTQID NEB Last administered on 08/21/16 11:29; Start 08/08/16 at 16:00 Metoprolol Tartrate (Lopressor) 12.5 mg BID PO Last administered on 08/08/16 21:51; Start 08/08/16 at 14:30; Stop 08/10/16 at 09:48; Status DC Lorazepam (Ativan) 1 mg PRN Q4HRS PRN IV ANXIETY / AGITATION Last administered on 08/16/16 21:25; Start 08/08/16 at 14:45; Stop 08/20/16 at 12:24; Status DC Levetiracetam (Keppra) 500 mg Q12HR PO Last administered on 08/15/16 21:30; Start 08/08/16 at 21:00; Stop 08/16/16 at 17:14; Status DC Multivitamins 10 ml/Folic Acid 1 mg/Thiamine HCl 100 mg/Sodium Chloride 1,011.2 ml @ 100 mls/ hr Q24H IV Last administered on 08/17/16 16:12; Start 08/08/16 at 16:00; Stop 08/17/16 at 16:20; Status DC Lorazepam (Ativan) 2 mg PRN Q4HRS PRN IV ANXIETY / AGITATION Last administered on 08/10/16 11:11; Start 08/08/16 at 15:15; Stop 08/13/16 at 11:08; Status DC Aspirin (Zunilda Aspirin) 325 mg DAILY PO Last administered on 08/09/16 09:09; Start 08/09/16 at 09:00; Stop 08/10/16 at 09:48; Status DC Diltiazem HCl (Cardizem 24hr Cd) 240 mg DAILY PO ; Start 08/09/16 at 09:00; Stop 08/10/16 at 09:48; Status DC Lactulose 20 gm Q48H PO Last administered on 08/09/16 09:13; Start 08/09/16 at 09:00; Stop 08/09/16 at 16:32; Status DC Pantoprazole Sodium (Protonix) 40 mg DAILYAC PO ; Start 08/09/16 at 07:30; Stop 08/09/16 at 09:36; Status DC Non-Formulary Medication 100 mg DAILY PO Last administered on 08/13/16 10:02; Start 08/09/16 at 09:00; Stop 08/13/16 at 11:09; Status UNV Pantoprazole Sodium (Protonix Vial) 40 mg DAILYAC IVP Last administered on 08/18 09:24; Start 08/09/16 at 10:00; Stop 08/18/16 at 10:07; Status DC Iohexol (Omnipaque 300 Mg/ml) 75 ml 1X ONCE IV ; Start 08/09/16 at 14:00; Stop 08/09/16 at 14:01; Status DC Info (Do NOT chart on this entry -- for MONITORING) 1 each PRN DAILY PRN MC SEE COMMENTS; Start 08/09/16 at 14:00; Stop 08/11/16 at 13:59; Status DC Lactulose 20 gm BID PO Last administered on 08/11/16 10:27; Start 08/09/16 at 21:00; Stop 08/11/16 at 10:52; Status DC Lorazepam (Ativan) 2 mg PRN Q1HR PRN IV For CIWA 8-14 Last administered on 08/16 01:17; Start 08/09/16 at 20:45 Lorazepam (Ativan) 4 mg PRN Q1HR PRN IV For CIWA 15 or greater Last administered on 08/10/16 06:55; Start 08/09/16 at 20:45 Haloperidol Lactate (Haldol) 5 mg PRN Q4HRS PRN IVP Hallucinatns,Confusn, Delirium Last administered on 08/10/16 12:29; Start 08/09/16 at 20:45; Stop at 10:11; Status DC Metoprolol Tartrate (Lopressor) 5 mg PRN Q4HRS PRN IVP ELEVATED BP, SEE COMMENTS Last administered on 08/10/16 02:49; Start 08/09/16 at 22:15; Stop at 09:48; Status DC Diltiazem HCl (Cardizem) 5 mg 1X ONCE IVP Last administered on 08/10/16 08:22 ; Start 08/10/16 at 08:15; Stop 08/10/16 at 08:16; Status DC Metoprolol Tartrate (Lopressor) 5 mg Q6HRS PRN IVP ELEVATED BP, SEE COMMENTS; Start 08/10/16 at 09:45; Stop 08/10/16 at 10:05; Status DC Aspirin (Aspirin) 300 mg DAILY [place] Last administered on 08/12/16 08:21; Start 08/10/16 at 09:45; Stop 08/12/16 at 11:14; Status DC Magnesium Sulfate/ Dextrose 50 ml @ 25 mls/hr 1X ONCE IV Last administered on 08/10/16 10:56; Start 08/10/16 at 10:00; Stop 08/10/16 at 11:59; Status DC Metoprolol Tartrate (Lopressor) 5 mg Q6HRS IVP Last administered on 08/12/16 05:00; Start 08/10/16 at 10:15; Stop 08/12/16 at 11:14; Status DC Enoxaparin Sodium (Lovenox 30mg Syringe) 30 mg Q24H SQ ; Start 08/10/16 at 15:00 ; Stop 08/10/16 at 15:00; Status DC Enoxaparin Sodium (Lovenox 40mg Syringe) 40 mg Q24H SQ Last administered on 15:50; Start 08/10/16 at 15:00 Acetaminophen (Tylenol) 650 mg PRN Q6HRS PRN PEG MILD PAIN / TEMP Last administered on 08/19/16 21:13; Start 08/10/16 at 23:45 Succinylcholine Chloride (Anectine) 200 mg STK-MED ONCE .ROUTE ; Start 08/11/16 at 01:30; Stop 08/11/16 at 01:31; Status DC Succinylcholine Chloride (Anectine) 200 mg STK-MED ONCE .ROUTE ; Start 08/11/16 at 01:30; Stop 08/11/16 at 08:48; Status DC Haloperidol Lactate (Haldol) 2.5 mg PRN Q4HRS PRN IVP Hallucinatns,Confusn, Delirium; Start 08/11/16 at 10:15 Potassium Chloride (KCl Oral Soln) 40 meq 1X ONCE PEG Last administered on 10:30; Start 08/11/16 at 10:30; Stop 08/11/16 at 10:31; Status DC Potassium Chloride (KCl Oral Soln) 40 meq 1X ONCE PEG Last administered on 16:00; Start 08/11/16 at 15:00; Stop 08/11/16 at 15:01; Status DC Digoxin (Lanoxin) 500 mcg 1X ONCE IV Last administered on 08/11/16 10:30; Start 08/11/16 at 10:30; Stop 08/11/16 at 10:31; Status DC Lactulose 20 gm QD PO Last administered on 08/14/16 09:54; Start 08/12/16 at 09:00; Stop 08/15/16 at 11:50; Status DC Phenylephrine HCl 20 mg/Sodium Chloride 252 ml @ 0 mls/hr 1X ONCE IV ; Start at 14:30; Stop 08/11/16 at 14:31; Status Cancel Magnesium Sulfate/ Dextrose 50 ml @ 25 mls/hr 1X ONCE IV Last administered on 08/12/16 09:32; Start 08/12/16 at 09:00; Stop 08/12/16 at 10:59; Status DC Magnesium Sulfate/ Dextrose 50 ml @ 25 mls/hr 1X ONCE IV Last administered on 08/12/16 17:56; Start 08/12/16 at 16:00; Stop 08/12/16 at 17:59; Status DC Potassium Chloride (KCl Oral Soln) 20 meq BID PEG Last administered on 21:52; Start 08/12/16 at 11:15; Stop 08/13/16 at 09:46; Status DC Diltiazem HCl (Cardizem) 60 mg Q6HRS PO Last administered on 08/21/16 06:18; Start 08/12/16 at 11:30 Metoprolol Tartrate (Lopressor) 25 mg BID FT Last administered on 08/12/16 21: 53; Start 08/12/16 at 21:00; Stop 08/13/16 at 09:46; Status DC Aspirin (Zunilda Aspirin) 325 mg DAILYWBKFT FT Last administered on 08/21/16 08: 09; Start 08/13/16 at 08:00 Ceftriaxone Sodium 1 gm/ Sodium Chloride 50 ml @ 100 mls/hr Q24H IV Last administered on 08/16/16 17:51; Start 08/12/16 at 17:00; Stop 08/17/16 at 10:33 ; Status DC Metoprolol Tartrate (Lopressor) 50 mg BID FT Last administered on 08/21/16 08: 08; Start 08/13/16 at 10:00 Potassium Chloride (KCl Oral Soln) 20 meq TID PEG Last administered on 08:10; Start 08/13/16 at 10:00 Magnesium Sulfate/ Dextrose 50 ml @ 25 mls/hr 1X ONCE IV Last administered on 08/13/16 11:26; Start 08/13/16 at 10:00; Stop 08/13/16 at 11:59; Status DC Potassium Chloride (Klor-Con) 40 meq 1X ONCE PO ; Start 08/15/16 at 14:00; Stop 08/15/16 at 14:01; Status DC Barium Sulfate (Varibar Thin Liquid [place]) 148 gm 1X ONCE PO Last administered on 08/16/16 12:55; Start 08/16/16 at 12:00; Stop 08/16/16 at 12:01 ; Status DC Levetiracetam (Keppra) 250 mg Q12HR PO Last administered on 08/19/16 08:56; Start 08/16/16 at 21:00; Stop 08/19/16 at 16:31; Status DC Rifaximin (Xifaxan) 550 mg Q12HR PO Last administered on 08/21/16 09:54; Start 08/17/16 at 13:30 Thiamine Mononitrate (Vitamin B-1) 100 mg DAILY PO Last administered on 08:09; Start 08/17/16 at 17:00 Potassium Chloride (Klor-Con) 40 meq 1X ONCE PO ; Start 08/18/16 at 09:45; Stop 08/18/16 at 09:46; Status Cancel Lansoprazole (Prevacid) 30 mg DAILY FT Last administered on 08/21/16 08:09; Start 08/19/16 at 09:00 Potassium Chloride (KCl Oral Soln) 20 meq 1X ONCE PEG Last administered on 13:13; Start 08/18/16 at 13:00; Stop 08/18/16 at 13:10; Status DC Acetaminophen/ Hydrocodone Bitart (Lortab 7.5-325/ 15ml Oral Solution) 10 ml PRN Q6HRS PRN NG MODERATE TO SEVERE PAIN Last administered on 08/21/16 06:19; Start 08/19/16 at 15:15 Levetiracetam (Keppra) 125 mg BID PO Last administered on 08/21/16 08:08; Start 08/19/16 at 21:00; Stop 08/21/16 at 09:03; Status DC Levetiracetam (Keppra) 125 mg BID PO ; Start 08/21/16 at 21:00 Active Scripts Active Lactulose 20 Gm/30 Ml Solution 20 Gm PO QODAY Ativan (Lorazepam) 0.5 Mg Tablet 0.5 Mg PO BID Diltiazem 24HR Cd (Diltiazem Hcl) 240 Mg Cap.er.24h 240 Mg PO DAILY Vitamin B-1 (Thiamine Hcl) 100 Mg Tablet 100 Mg PO DAILY [place] 5-325 Tablet (Acetaminophen/Hydrocodone Bitart) 1 Each Tablet 1 Tab PO PRN Q6HRS PRN Reported Omeprazole 20 Mg Capsule.dr 20 Mg PO DAILY Zofran Odt (Ondansetron) 8 Mg Tab.rapdis 1 Tab PO PRN Q8HRS PRN [place] 4.2-0.7 mg Film (Buprenorphine HCl/Naloxone HCl) 1 Each Film 1 Each BC DAILY Vitals/I & O Vital Sign - Last 24 Hours 08/20/16 08/20/16 08/20/16 08/20/16 12:04 12:05 14:48 15:21 Temp 97.9 97.9 Pulse 60 53 Resp 20 16 B/P (MAP) 124/81 109/70 (83) Pulse Ox 98 98 O2 Delivery Room Air Room Air Room Air 08/20/16 08/20/16 08/20/16 08/20/16 18:11 18:12 19:00 19:00 Temp 98.1 98.1 Pulse 63 71 Resp 20 20 B/P (MAP) 109/76 126/84 (98) Pulse Ox 98 95 O2 Delivery Room Air Room Air Room Air 08/20/16 08/20/16 08/20/16 08/21/16 19:50 20:48 23:00 00:13 Temp 98.3 98.3 Pulse 71 62 62 Resp 20 B/P (MAP) 126/84 154/100 (118) 154/100 Pulse Ox 97 O2 Delivery Room Air Room Air 08/21/16 08/21/16 08/21/16 08/21/16 00:14 03:00 06:18 06:19 Temp 98.2 98.2 Pulse 63 63 Resp 18 20 18 B/P (MAP) 123/85 (98) 123/85 Pulse Ox 97 97 97 O2 Delivery Room Air Room Air Room Air 08/21/16 08/21/16 08/21/16 08/21/16 07:00 07:19 07:25 08:00 Temp 97.9 97.9 Pulse 64 Resp 16 16 B/P (MAP) 114/74 (87) Pulse Ox 97 97 97 O2 Delivery Room Air Room Air Room Air Room Air O2 Flow Rate 3.5 3.5 08/21/16 08/21/16 08/21/16 08:08 11:00 11:29 Temp 98.0 98.0 Pulse 64 84 Resp 18 B/P (MAP) 114/74 95/55 (68) Pulse Ox 96 99 O2 Delivery Room Air Room Air Intake and Output 08/20/16 08/20/16 08/21/16 15:00 23:00 07:00 Intake Total 140 ml 140 ml 1265 ml Output Total 550 ml 700 ml Balance -410 ml 140 ml 565 ml Nutrition Consultation Dietary Evaluation: Comments: Rec. continue the TF's until able to pass speech evaluation, may take up to another 10-14 days which is appropriate to contine NG Tf up to total of ~30 days short term Expected Outcomes/Goals: tolerate TF's at goal rate - goal ongoing diet adv Malnutrition Findings: Food and Nutrition Intake (Mod: <75% est energy req 7days Body Fat Depletion (Non Severe: Mod to Severe Reduced Waxer Tender Strength: N/A Reduced Waxer Tender Strength (Non-Sev: N/A Weight Status: Underweight Fluid Accumulation (N/A): N/A JOIE MCKEE III DO Aug 21, 2016 11:46
--- NOTE | 2016-08-21 12:13 | PDOC ---
PROGRESS NOTES Assessment Assessment Seizure x 2 on 08/08/16, alcohol related. Metabolic encephalopathy. Toxic encephalopathy. Respiratory failure. Tiny right frontal and parietal junction infract, symptomatic. Alcoholic. Lactic acidosis. HCV Cannabinoids positive. RECOMMENDATIONS/PLAN: Continue Keppra, decrease to 125 mg bid and will taper it off in 2-3 days. Continue ASA 325 mg daily. Treat medical diseases. OT/PT Discussed with his at bedside on 08/17/16. EEG on 08/10/16 showed diffuse encephalopathy. Brain MRI on 08/09/16: Tiny infract in right frontal and parietal junction. PAST MEDICAL HISTORY: Hep C cirrhosis, alcoholism, chronic nausea, vomiting, abdominal pain and narcotic addiction. FAMILY HISTORY: Unknown. SOCIAL HISTORY: Lives with his . Heavy alcohol 8-10 beers and wine a day x 40 years. Smoking 2 packs a day x 40 years. Marijuana use. ALLERGIES: No known drug allergies. REVIEW OF SYSTEMS: Constitutional: Mild malnutrition. Head: No recent traumatic brain or head injury. Skin: No edema, or rash. Ear: No infection, tinnitus. Eyes: No vision loss, or diplopia. Nose: No bleeding or purulent discharges. Hearing: No hearing decrease. Neck: No injury. Cardiac: No [place] Pulmonary: No pneumonia. GI: No GI Ulcer, GI bleeding Urinary/genital: No dysuria, hematuria, incontinence. Endocrine: No cousin face, craniofacial dysmorphism, polydactyly. Skeletomuscular: No muscular atrophy, deformity. Neurological: see HP. Psychiatric:Alcohol, smoking, marijuana. Otherwise, not [id number] review of systems. PHYSICAL EXAMINATION: General appearance in no acute distress. HEENT: Normocephalic and nontraumatic. Eyes, nose, ears, and throat are unremarkable. Neck is supple. No lymphadenopathy. No Crepitus. Cardiovascular: S1, S2, regular rate and rhythm. Pulmonary: relative clear to auscultation bilaterally. Abdomen: Bowel sounds are positive. Abdomen is soft, nontender, and nondistended. Extremities: No rash, lesions, or edema. No restriction of range of motion NEUROLOGICAL EXAMINATION: Awake. Oriented to time, place and person. PERRL. EOMI. CN: no focal findings. Muscle tone: within normal. Muscle strength: 5- DTR: 2 Plantar reflex: Neutral response bilaterally Gait: At his baseline normal. Walked on the Hallway. Sensory exam: No acute deficits found. Not acute cerebellar signs elicited. F-T-N test fine. Objective Objective Vital Signs Date Time Temp Pulse Resp B/P (MAP) Pulse Ox O2 Delivery O2 Flow Rate FiO2 08/21/16 11:29 99 Room Air 08/21/16 11:00 98.0 84 18 95/55 (68) 98.0 08/21/16 08:00 3.5 Intake and Output 08/21/16 07:00 Intake Total 1545 ml Output Total 1250 ml Balance 295 ml Intake Oral 0 ml Tube Feeding 1185 ml Other 360 ml Output Urine Total 1250 ml # Voids 1 Vitals Signs Vitals VS - Last 72 Hours, by Label Date Time Temp Pulse Resp B/P (MAP) Pulse Ox O2 Delivery O2 Flow Rate FiO2 08/21/16 11:29 99 Room Air 08/21/16 11:00 98.0 84 18 95/55 (68) 96 Room Air 98.0 08/21/16 08:08 64 114/74 08/21/16 08:00 Room Air 3.5 08/21/16 07:25 97 Room Air 08/21/16 07:19 16 97 Room Air 3.5 08/21/16 07:00 97.9 64 16 114/74 (87) 97 Room Air 97.9 08/21/16 06:19 18 97 Room Air 08/21/16 06:18 63 123/85 08/21/16 03:00 98.2 63 20 123/85 (98) 97 Room Air 98.2 08/21/16 00:14 18 97 Room Air 08/21/16 00:13 62 154/100 08/20/16 23:00 98.3 62 20 154/100 (118) 97 Room Air 98.3 08/20/16 20:48 71 126/84 08/20/16 19:50 Room Air 08/20/16 19:00 Room Air 08/20/16 19:00 98.1 71 20 126/84 (98) 95 Room Air 98.1 08/20/16 18:12 20 98 Room Air 08/20/16 18:11 63 109/76 08/20/16 15:21 Room Air 08/20/16 14:48 97.9 53 16 109/70 (83) 98 Room Air 97.9 08/20/16 12:05 20 98 Room Air 08/20/16 12:04 60 124/81 08/20/16 11:29 Room Air 08/20/16 11:00 97.9 59 18 124/81 (95) 100 Room Air 97.9 08/20/16 08:15 65 119/71 08/20/16 08:00 Room Air 08/20/16 07:54 98 Room Air 08/20/16 07:00 97.9 65 16 119/71 (87) 97 Room Air 97.9 Laboratory Laboratory Microbiology 08/11/16 Blood Culture - Final, Complete NO GROWTH AFTER 5 DAYS 08/11/16 Urine Culture - Final, Complete 08/11/16 Urine Culture Result 1 (JENNY) - Final, Complete 08/11/16 Antimicrobic Susceptibility - Final, Complete Medication Medications Current Medications Levetiracetam (Keppra) 125 mg BID PO ; Start 08/21/16 at 21:00 Comment Review of Relevant I have reviewed the following items chikis (where applicable) has been applied. ADONIS HUITRON MD Aug 21, 2016 12:13
[2016-08-21 15:00] VITALS: BP 99/63
[2016-08-21] MEDS: ENOXAPARIN 40 MG/0.4 ML SYRINGE. SQ SCH (15:04)
--- NOTE | 2016-08-21 16:06 | RAD ---
Abdomen AP view: Reason for examination: NG tube placement. NG tube is present in the stomach with the Dobbhoff tip in region of gastric antrum. There is no gross organomegaly. Psoas muscles are symmetric. Bowel gas pattern is nonspecific with some small and large intestinal air present. No abnormal calcifications are seen. IMPRESSION: Dobbhoff tube present with the tip in the gastric antrum. Electronically signed by: Oly Marino MD (08/21/2016 4:03 PM)
[2016-08-21 19:00] VITALS: BP 130/78
[2016-08-21 23:00] VITALS: BP 136/95
[2016-08-22] MEDS: dilTIAZem HCL 30 MG TABLET PO SCH ×4 (01:00→17:00)
[2016-08-22 03:00] VITALS: BP 118/70
[2016-08-22] MEDS: HYDROcodon/APAP 7.5/325MG ORAL 15 ML SOLUTION NG PRN ×3 (04:14→12:55)
[2016-08-22 07:00] VITALS: BP 105/76
[2016-08-22] MEDS: IPRATROPIUM BROMIDE 0.5 MG/2.5 ML NEBU. NEB SCH ×4 (07:54→19:19)
[2016-08-22] MEDS: rifAXIMin 550 MG TABLET PO SCH ×2 (09:38→21:00)
[2016-08-22] MEDS: ASPIRIN 325 MG TABLET FT SCH (09:38)
[2016-08-22] MEDS: METOPROLOL TART IMMED RELEASE 25 MG TABLET. FT SCH ×2 (09:39→21:00)
[2016-08-22] MEDS: POTASSIUM CHLORIDE 20 MEQ/15 ML ORAL LIQUID. PEG SCH ×3 (09:40→21:33)
[2016-08-22] MEDS: LANSOPRAZOLE 30 MG TAB.RAP.DR FT SCH (09:40)
[2016-08-22] MEDS: THIAMINE 100 MG TABLET. PO SCH (09:40)
[2016-08-22 10:45] VITALS: BP 128/82
[2016-08-22] MEDS: ENOXAPARIN 40 MG/0.4 ML SYRINGE. SQ SCH (12:54)
--- NOTE | 2016-08-22 13:30 | PDOC ---
PROGRESS NOTES Assessment Assessment Seizure x 2 on 08/08/16, alcohol related. Metabolic encephalopathy. Toxic encephalopathy. Respiratory failure. Tiny right frontal and parietal junction infract, asymptomatic, incidental finding. Alcoholic. Lactic acidosis. HCV Cannabinoids positive. RECOMMENDATIONS/PLAN: Continue Keppra, decreased to 125 mg bid and will taper it off in 2-3 days. Continue ASA 325 mg daily. Treat medical diseases. OT/PT Discussed with his at bedside on 08/22/16. EEG on 08/10/16 showed diffuse encephalopathy. Brain MRI on 08/09/16: Tiny infract in right frontal and parietal junction. PAST MEDICAL HISTORY: Hep C cirrhosis, alcoholism, chronic nausea, vomiting, abdominal pain and narcotic addiction. FAMILY HISTORY: Unknown. SOCIAL HISTORY: Lives with his . Heavy alcohol 8-10 beers and wine a day x 40 years. Smoking 2 packs a day x 40 years. Marijuana use. ALLERGIES: No known drug allergies. REVIEW OF SYSTEMS: Constitutional: Mild malnutrition. Head: No recent traumatic brain or head injury. Skin: No edema, or rash. Ear: No infection, tinnitus. Eyes: No vision loss, or diplopia. Nose: No bleeding or purulent discharges. Hearing: No hearing decrease. Neck: No injury. Cardiac: No HI Pulmonary: No pneumonia. GI: No GI Ulcer, GI bleeding Urinary/genital: No dysuria, hematuria, incontinence. Endocrine: No cousin face, craniofacial dysmorphism, polydactyly. Skeletomuscular: No muscular atrophy, deformity. Neurological: see HP. Psychiatric:Alcohol, smoking, marijuana. Otherwise, not [id number] review of systems. PHYSICAL EXAMINATION: General appearance in no acute distress. HEENT: Normocephalic and nontraumatic. Eyes, nose, ears, and throat are unremarkable. Neck is supple. No lymphadenopathy. No Crepitus. Cardiovascular: S1, S2, regular rate and rhythm. Pulmonary: relative clear to auscultation bilaterally. Abdomen: Bowel sounds are positive. Abdomen is soft, nontender, and nondistended. Extremities: No rash, lesions, or edema. No restriction of range of motion NEUROLOGICAL EXAMINATION: Awake. Oriented to time, place and person. PERRL. EOMI. CN: no focal findings. Muscle tone: within normal. Muscle strength: 5- DTR: 2 Plantar reflex: Neutral response bilaterally Gait: At his baseline normal. Walked on the Hallway. Sensory exam: No acute deficits found. Not acute cerebellar signs elicited. F-T-N test fine. Objective Objective Vital Signs Date Time Temp Pulse Resp B/P (MAP) Pulse Ox O2 Delivery O2 Flow Rate FiO2 08/22/16 12:55 18 Room Air 08/22/16 12:26 63 128/82 08/22/16 11:53 97 08/22/16 10:45 98.8 98.8 08/21/16 13:50 3.5 Intake and Output 08/22/16 07:00 Intake Total 1352 ml Output Total 550 ml Balance 802 ml Intake Oral 0 ml Tube Feeding 952 ml Blood Product IV Normal Saline Flush 400 ml Output Urine Total 550 ml # Voids 2 # Bowel Movements 1 Vitals Signs Vitals VS - Last 72 Hours, by Label Date Time Temp Pulse Resp B/P (MAP) Pulse Ox O2 Delivery O2 Flow Rate FiO2 08/22/16 12:55 18 Room Air 08/22/16 12:26 63 128/82 08/22/16 11:53 97 Room Air 08/22/16 10:45 98.8 63 18 128/82 (97) 98 Room Air 98.8 08/22/16 09:39 70 105/76 08/22/16 09:09 18 Room Air 08/22/16 08:09 18 Room Air 08/22/16 08:00 Room Air 08/22/16 07:54 98 Room Air 08/22/16 07:00 97.9 70 18 105/76 (86) 98 Room Air 97.9 08/22/16 06:20 69 130/82 08/22/16 05:15 94 08/22/16 04:14 20 94 Room Air 08/22/16 03:00 97.9 72 18 118/70 (86) 94 Room Air 97.9 08/22/16 01:00 67 148/94 08/21/16 23:00 98.1 99 18 136/95 (109) 99 Room Air 98.1 08/21/16 20:42 69 122/86 08/21/16 20:40 18 Room Air 08/21/16 20:10 Room Air 08/21/16 19:15 100 Room Air 08/21/16 19:00 97.5 69 18 130/78 (95) 93 Room Air 97.5 08/21/16 15:17 100 Room Air 08/21/16 15:00 97.6 63 18 99/63 (75) 95 Room Air 97.6 08/21/16 13:50 3.5 08/21/16 12:50 16 99 Room Air 3.5 08/21/16 11:29 99 Room Air 08/21/16 11:00 98.0 84 18 95/55 (68) 96 Room Air 98.0 08/21/16 08:08 64 114/74 08/21/16 08:00 Room Air 3.5 08/21/16 07:25 97 Room Air 08/21/16 07:00 97.9 64 16 114/74 (87) 97 Room Air 97.9 Laboratory Laboratory Microbiology 08/11/16 Blood Culture - Final, Complete NO GROWTH AFTER 5 DAYS 08/11/16 Urine Culture - Final, Complete 08/11/16 Urine Culture Result 1 (JENNY) - Final, Complete 08/11/16 Antimicrobic Susceptibility - Final, Complete Medication Medications Current Medications Acetaminophen/ Hydrocodone Bitart (Lortab 7.5-325/ 15ml Oral Solution) 10 ml PRN Q4HRS PRN NG MODERATE TO SEVERE PAIN; Start 08/22/16 at 15:15; Status UNV Levetiracetam (Keppra) 125 mg BID PO Last administered on 08/22/16t 09:40; Start 08/21/16 at 21:00 Comment Review of Relevant I have reviewed the following items chikis (where applicable) has been applied. ADONIS HUITRON MD Aug 22, 2016 13:30
--- NOTE | 2016-08-22 14:12 | PDOC ---
PROGRESS NOTES Chief Complaint Chief Complaint Seizure like activity likely ETOH 1. Acute hypoxic respiratory failure: extubated 08/09, on NC 2. Hepatic encephalopath 3. EtOH/ HCV cirrhosis: endstage 4. Noncompliance 5. Debility: 6. Dysphagia 7. Malnutrition 8. Paroxysmal Afib 8. Hypokalemia 9. Back pain History of Present Illness History of Present Illness Seen and examined VSS Has a dobhoff at 55 cc/hr Want to go home DW Vitals Vitals Vital Signs Date Time Temp Pulse Resp B/P (MAP) Pulse Ox O2 Delivery O2 Flow Rate FiO2 08/22/16 12:55 18 Room Air 08/22/16 12:26 63 128/82 08/22/16 11:53 97 08/22/16 10:45 98.8 98.8 08/21/16 13:50 3.5 Physical Exam General: Alert, Cooperative, No acute distress Heart: Regular rate Lungs: Clear Abdomen: Normal bowel sounds, No tenderness, Other (NG in place) Extremities: No clubbing, No cyanosis, No edema Skin: No significant lesion Review of Systems Review of Systems co pain co weakness Assessment and Plan Assessmemt and Plan Problems Medical Problems: (1) Alcohol withdrawal Status: Acute (2) Hepatic encephalopathy Status: Acute (3) Lactic acid acidosis Status: Acute (4) Respiratory failure Status: Acute Seizure like activity likely ETOH 1. Acute hypoxic respiratory failure: extubated 08/09, on NC 2. Hepatic encephalopath 3. EtOH/ HCV cirrhosis: endstage 4. Noncompliance 5. Debility: 6. Dysphagia 7. Malnutrition 8. Paroxysmal Afib 8. Hypokalemia 9. Back pain Plan Consult Dr Matt Banks for pain mgmt Hope to dc Dobhoff soon if he can work with ST Recheck labs PTOTST Home meds DW Dr Van Problems: Comment Review of Relevant I have reviewed the following items chikis (where applicable) has been applied. Labs Microbiology 08/11/16 Blood Culture - Final, Complete NO GROWTH AFTER 5 DAYS 08/11/16 Urine Culture - Final, Complete 08/11/16 Urine Culture Result 1 (JENNY) - Final, Complete 08/11/16 Antimicrobic Susceptibility - Final, Complete Medications Current Medications Diltiazem HCl (Cardizem) 25 mg STK-MED ONCE .ROUTE ; Start 08/08/16 at 10:37; Stop 08/08/16 at 10:38; Status DC Diltiazem HCl 125 mg/Dextrose 125 ml @ 0 mls/hr CONT PRN IV SEE I/O RECORD Last administered on 08/12/16 06:20; Start 08/08/16 at 11:00; Stop 08/12/16 at 12:30; Status DC Diltiazem HCl (Cardizem) 20 mg 1X ONCE IVP Last administered on 08/08/16 10: 40; Start 08/08/16 at 11:00; Stop 08/08/16 at 11:01; Status DC Lorazepam (Ativan) 2 mg STK-MED ONCE .ROUTE ; Start 08/08/16 at 10:55; Stop 01/14 at 10:56; Status DC Iohexol (Omnipaque 350 Mg/ml) 90 ml 1X ONCE IV Last administered on 08/08/16 11:15; Start 08/08/16 at 11:15; Stop 08/08/16 at 11:16; Status DC Propofol 20 ml @ 0 mls/hr 1X ONCE IV Last administered on 08/08/16 11:20; Start 08/08/16 at 11:15; Stop 08/08/16 at 11:16; Status DC Info (Do NOT chart on this entry -- for MONITORING) 1 each PRN DAILY PRN MC SEE COMMENTS; Start 08/08/16 at 11:15; Stop 08/10/16 at 09:37; Status DC Fentanyl Citrate (Fentanyl 2ml Vial) 100 mcg 1X ONCE IV Last administered on 11:03; Start 08/08/16 at 11:15; Stop 08/08/16 at 11:16; Status DC Fentanyl Citrate (Fentanyl 2ml Vial) 100 mcg 1X ONCE IV Last administered on 11:16; Start 08/08/16 at 11:15; Stop 08/08/16 at 11:16; Status DC Propofol 50 ml @ As Directed STK-MED ONCE IV ; Start 08/08/16 at 11:17; Stop 01/14 at 11:18; Status DC Ondansetron HCl (Zofran) 4 mg PRN Q8HRS PRN IV NAUSEA/VOMITING; Start 08/08/16 at 11:30; Stop 08/09/16 at 11:29; Status DC Fentanyl Citrate (Fentanyl 2ml Vial) 50 mcg PRN Q2HR PRN IV PAIN Last administered on 08/08/16 13:16; Start 08/08/16 at 11:30; Stop 08/09/16 at 11:29 ; Status DC Levetiracetam 1000 mg/Sodium Chloride 110 ml @ 440 mls/hr 1X ONCE IV Last administered on 08/08/16 11:39; Start 08/08/16 at 11:45; Stop 08/08/16 at 11:59 ; Status DC Fentanyl Citrate (Fentanyl 2ml Vial) 100 mcg 1X ONCE IV ; Start 08/08/16 at 11: 45; Stop 08/08/16 at 11:46; Status DC Propofol 50 ml @ As Directed STK-MED ONCE IV ; Start 08/08/16 at 12:09; Stop 01/14 at 12:10; Status DC Lorazepam (Ativan) 2 mg 1X ONCE IV ; Start 08/08/16 at 13:00; Stop 08/08/16 at 13:01; Status DC Succinylcholine Chloride (Anectine) 100 mg 1X ONCE IV ; Start 08/08/16 at 13:00 ; Stop 08/08/16 at 13:01; Status DC Etomidate (Amidate) 20 mg 1X ONCE IV ; Start 08/08/16 at 13:00; Stop 08/08/16 at 13:01; Status DC Propofol 100 ml @ 0 mls/hr CONT PRN IV PER PROTOCOL Last administered on 09:08; Start 08/08/16 at 13:45; Stop 08/11/16 at 10:11; Status DC Fentanyl Citrate (Fentanyl 2ml Vial) 50 mcg PRN Q1HR PRN IV COMM Last administered on 08/19/16 15:12; Start 08/08/16 at 13:45; Stop 08/19/16 at 15:17 ; Status DC Chlorhexidine Gluconate (Peridex) 15 ml BID MM Last administered on 08/09/16 09:08; Start 08/08/16 at 21:00; Stop 08/10/16 at 08:29; Status DC Ipratropium [place] (Atrovent) 0.5 mg RTQID NEB Last administered on 08/22/16 11:53; Start 08/08/16 at 16:00 Metoprolol Tartrate (Lopressor) 12.5 mg BID PO Last administered on 08/08/16 21:51; Start 08/08/16 at 14:30; Stop 08/10/16 at 09:48; Status DC Lorazepam (Ativan) 1 mg PRN Q4HRS PRN IV ANXIETY / AGITATION Last administered on 08/16/16 21:25; Start 08/08/16 at 14:45; Stop 08/20/16 at 12:24; Status DC Levetiracetam (Keppra) 500 mg Q12HR PO Last administered on 08/15/16 21:30; Start 08/08/16 at 21:00; Stop 08/16/16 at 17:14; Status DC Multivitamins 10 ml/Folic Acid 1 mg/Thiamine HCl 100 mg/Sodium Chloride 1,011.2 ml @ 100 mls/ hr Q24H IV Last administered on 08/17/16 16:12; Start 08/08/16 at 16:00; Stop 08/17/16 at 16:20; Status DC Lorazepam (Ativan) 2 mg PRN Q4HRS PRN IV ANXIETY / AGITATION Last administered on 08/10/16 11:11; Start 08/08/16 at 15:15; Stop 08/13/16 at 11:08; Status DC Aspirin (Zunilda Aspirin) 325 mg DAILY PO Last administered on 08/09/16 09:09; Start 08/09/16 at 09:00; Stop 08/10/16 at 09:48; Status DC Diltiazem HCl (Cardizem 24hr ) 240 mg DAILY PO ; Start 08/09/16 at 09:00; Stop 08/10/16 at 09:48; Status DC Lactulose 20 gm Q48H PO Last administered on 08/09/16 09:13; Start 08/09/16 at 09:00; Stop 08/09/16 at 16:32; Status DC Pantoprazole Sodium (Protonix) 40 mg DAILYAC PO ; Start 08/09/16 at 07:30; Stop 08/09/16 at 09:36; Status DC Non-Formulary Medication 100 mg DAILY PO Last administered on 08/13/16 10:02; Start 08/09/16 at 09:00; Stop 08/13/16 at 11:09; Status UNV Pantoprazole Sodium (Protonix Vial) 40 mg DAILYAC IVP Last administered on 08/18 09:24; Start 08/09/16 at 10:00; Stop 08/18/16 at 10:07; Status DC Iohexol (Omnipaque 300 Mg/ml) 75 ml 1X ONCE IV ; Start 08/09/16 at 14:00; Stop 08/09/16 at 14:01; Status DC Info (Do NOT chart on this entry -- for MONITORING) 1 each PRN DAILY PRN MC SEE COMMENTS; Start 08/09/16 at 14:00; Stop 08/11/16 at 13:59; Status DC Lactulose 20 gm BID PO Last administered on 08/11/16 10:27; Start 08/09/16 at 21:00; Stop 08/11/16 at 10:52; Status DC Lorazepam (Ativan) 2 mg PRN Q1HR PRN IV For CIWA 8-14 Last administered on 08/22 14:03; Start 08/09/16 at 20:45 Lorazepam (Ativan) 4 mg PRN Q1HR PRN IV For CIWA 15 or greater Last administered on 08/10/16 06:55; Start 08/09/16 at 20:45 Haloperidol Lactate (Haldol) 5 mg PRN Q4HRS PRN IVP Hallucinatns,Confusn, Delirium Last administered on 08/10/16 12:29; Start 08/09/16 at 20:45; Stop at 10:11; Status DC Metoprolol Tartrate (Lopressor) 5 mg PRN Q4HRS PRN IVP ELEVATED BP, SEE COMMENTS Last administered on 08/10/16 02:49; Start 08/09/16 at 22:15; Stop at 09:48; Status DC Diltiazem HCl (Cardizem) 5 mg 1X ONCE IVP Last administered on 08/10/16 08:22 ; Start 08/10/16 at 08:15; Stop 08/10/16 at 08:16; Status DC Metoprolol Tartrate (Lopressor) 5 mg Q6HRS PRN IVP ELEVATED BP, SEE COMMENTS; Start 08/10/16 at 09:45; Stop 08/10/16 at 10:05; Status DC Aspirin (Aspirin) 300 mg DAILY MT Last administered on 08/12/16 08:21; Start 08/10/16 at 09:45; Stop 08/12/16 at 11:14; Status DC Magnesium Sulfate/ Dextrose 50 ml @ 25 mls/hr 1X ONCE IV Last administered on 08/10/16 10:56; Start 08/10/16 at 10:00; Stop 08/10/16 at 11:59; Status DC Metoprolol Tartrate (Lopressor) 5 mg Q6HRS IVP Last administered on 08/12/16 05:00; Start 08/10/16 at 10:15; Stop 08/12/16 at 11:14; Status DC Enoxaparin Sodium (Lovenox 30mg Syringe) 30 mg Q24H SQ ; Start 08/10/16 at 15:00 ; Stop 08/10/16 at 15:00; Status DC Enoxaparin Sodium (Lovenox 40mg Syringe) 40 mg Q24H SQ Last administered on 12:54; Start 08/10/16 at 15:00 Acetaminophen (Tylenol) 650 mg PRN Q6HRS PRN PEG MILD PAIN / TEMP Last administered on 08/19/16 21:13; Start 08/10/16 at 23:45 Succinylcholine Chloride (Anectine) 200 mg STK-MED ONCE .ROUTE ; Start 08/11/16 at 01:30; Stop 08/11/16 at 01:31; Status DC Succinylcholine Chloride (Anectine) 200 mg STK-MED ONCE .ROUTE ; Start 08/11/16 at 01:30; Stop 08/11/16 at 08:48; Status DC Haloperidol Lactate (Haldol) 2.5 mg PRN Q4HRS PRN IVP Hallucinatns,Confusn, Delirium; Start 08/11/16 at 10:15 Potassium Chloride (KCl Oral Soln) 40 meq 1X ONCE PEG Last administered on 10:30; Start 08/11/16 at 10:30; Stop 08/11/16 at 10:31; Status DC Potassium Chloride (KCl Oral Soln) 40 meq 1X ONCE PEG Last administered on 16:00; Start 08/11/16 at 15:00; Stop 08/11/16 at 15:01; Status DC Digoxin (Lanoxin) 500 mcg 1X ONCE IV Last administered on 08/11/16 10:30; Start 08/11/16 at 10:30; Stop 08/11/16 at 10:31; Status DC Lactulose 20 gm QD PO Last administered on 08/14/16 09:54; Start 08/12/16 at 09:00; Stop 08/15/16 at 11:50; Status DC Phenylephrine HCl 20 mg/Sodium Chloride 252 ml @ 0 mls/hr 1X ONCE IV ; Start at 14:30; Stop 08/11/16 at 14:31; Status Cancel Magnesium Sulfate/ Dextrose 50 ml @ 25 mls/hr 1X ONCE IV Last administered on 08/12/16 09:32; Start 08/12/16 at 09:00; Stop 08/12/16 at 10:59; Status DC Magnesium Sulfate/ Dextrose 50 ml @ 25 mls/hr 1X ONCE IV Last administered on 08/12/16 17:56; Start 08/12/16 at 16:00; Stop 08/12/16 at 17:59; Status DC Potassium Chloride (KCl Oral Soln) 20 meq BID PEG Last administered on 21:52; Start 08/12/16 at 11:15; Stop 08/13/16 at 09:46; Status DC Diltiazem HCl (Cardizem) 60 mg Q6HRS PO Last administered on 08/22/16 12:26; Start 08/12/16 at 11:30 Metoprolol Tartrate (Lopressor) 25 mg BID FT Last administered on 08/12/16 21: 53; Start 08/12/16 at 21:00; Stop 08/13/16 at 09:46; Status DC Aspirin (Zunilda Aspirin) 325 mg DAILYWBKFT FT Last administered on 08/22/16 09: 38; Start 08/13/16 at 08:00 Ceftriaxone Sodium 1 gm/ Sodium Chloride 50 ml @ 100 mls/hr Q24H IV Last administered on 08/16/16 17:51; Start 08/12/16 at 17:00; Stop 08/17/16 at 10:33 ; Status DC Metoprolol Tartrate (Lopressor) 50 mg BID FT Last administered on 08/22/16 09: 39; Start 08/13/16 at 10:00 Potassium Chloride (KCl Oral Soln) 20 meq TID PEG Last administered on 12:53; Start 08/13/16 at 10:00 Magnesium Sulfate/ Dextrose 50 ml @ 25 mls/hr 1X ONCE IV Last administered on 08/13/16 11:26; Start 08/13/16 at 10:00; Stop 08/13/16 at 11:59; Status DC Potassium Chloride (Klor-Con) 40 meq 1X ONCE PO ; Start 08/15/16 at 14:00; Stop 08/15/16 at 14:01; Status DC Barium Sulfate (Varibar Thin Liquid [place]) 148 gm 1X ONCE PO Last administered on 08/16/16 12:55; Start 08/16/16 at 12:00; Stop 08/16/16 at 12:01 ; Status DC Levetiracetam (Keppra) 250 mg Q12HR PO Last administered on 08/19/16 08:56; Start 08/16/16 at 21:00; Stop 08/19/16 at 16:31; Status DC Rifaximin (Xifaxan) 550 mg Q12HR PO Last administered on 08/22/16 09:38; Start 08/17/16 at 13:30 Thiamine Mononitrate (Vitamin B-1) 100 mg DAILY PO Last administered on 09:40; Start 08/17/16 at 17:00 Potassium Chloride (Klor-Con) 40 meq 1X ONCE PO ; Start 08/18/16 at 09:45; Stop 08/18/16 at 09:46; Status Cancel Lansoprazole (Prevacid) 30 mg DAILY FT Last administered on 08/22/16 09:40; Start 08/19/16 at 09:00 Potassium Chloride (KCl Oral Soln) 20 meq 1X ONCE PEG Last administered on 13:13; Start 08/18/16 at 13:00; Stop 08/18/16 at 13:10; Status DC Acetaminophen/ Hydrocodone Bitart (Lortab 7.5-325/ 15ml Oral Solution) 10 ml PRN Q6HRS PRN NG MODERATE TO SEVERE PAIN Last administered on 08/22/16 12:55; Start 08/19/16 at 15:15; Stop 08/22/16 at 13:26; Status DC Levetiracetam (Keppra) 125 mg BID PO Last administered on 08/21/16 08:08; Start 08/19/16 at 21:00; Stop 08/21/16 at 09:03; Status DC Levetiracetam (Keppra) 125 mg BID PO Last administered on 08/22/16 09:40; Start 08/21/16 at 21:00 Acetaminophen/ Hydrocodone Bitart (Lortab 7.5-325/ 15ml Oral Solution) 10 ml PRN Q4HRS PRN NG MODERATE TO SEVERE PAIN; Start 08/22/16 at 15:15 Active Scripts Active Lactulose 20 Gm/30 Ml Solution 20 Gm PO QODAY Ativan (Lorazepam) 0.5 Mg Tablet 0.5 Mg PO BID Diltiazem 24HR Cd (Diltiazem Hcl) 240 Mg Cap.er.24h 240 Mg PO DAILY Vitamin B-1 (Thiamine Hcl) 100 Mg Tablet 100 Mg PO DAILY [place] 5-325 Tablet (Acetaminophen/Hydrocodone Bitart) 1 Each Tablet 1 Tab PO PRN Q6HRS PRN Reported Omeprazole 20 Mg Capsule.dr 20 Mg PO DAILY Zofran Odt (Ondansetron) 8 Mg Tab.rapdis 1 Tab PO PRN Q8HRS PRN [place] 4.2-0.7 mg Film (Buprenorphine HCl/Naloxone HCl) 1 Each Film 1 Each BC DAILY Vitals/I & O Vital Sign - Last 24 Hours 08/21/16 08/21/16 08/21/16 08/21/16 15:00 15:17 19:00 19:15 Temp 97.6 97.5 97.6 97.5 Pulse 63 69 Resp 18 18 B/P (MAP) 99/63 (75) 130/78 (95) Pulse Ox 95 100 93 100 O2 Delivery Room Air Room Air Room Air Room Air 08/21/16 08/21/16 08/21/16 08/21/16 20:10 20:40 20:42 23:00 Temp 98.1 98.1 Pulse 69 99 Resp 18 18 B/P (MAP) 122/86 136/95 (109) Pulse Ox 99 O2 Delivery Room Air Room Air Room Air 08/22/16 08/22/16 08/22/16 08/22/16 01:00 03:00 04:14 05:15 Temp 97.9 97.9 Pulse 67 72 Resp 18 20 B/P (MAP) 148/94 118/70 (86) Pulse Ox 94 94 94 O2 Delivery Room Air Room Air 08/22/16 08/22/16 08/22/16 08/22/16 06:20 07:00 07:54 08:00 Temp 97.9 97.9 Pulse 69 70 Resp 18 B/P (MAP) 130/82 105/76 (86) Pulse Ox 98 98 O2 Delivery Room Air Room Air Room Air 08/22/16 08/22/16 08/22/16 08/22/16 08:09 09:09 09:39 10:45 Temp 98.8 98.8 Pulse 70 63 Resp 18 18 18 B/P (MAP) 105/76 128/82 (97) Pulse Ox 98 O2 Delivery Room Air Room Air Room Air 08/22/16 08/22/16 08/22/16 11:53 12:26 12:55 Pulse 63 Resp 18 B/P (MAP) 128/82 Pulse Ox 97 O2 Delivery Room Air Room Air Intake and Output 08/21/16 08/21/16 08/22/16 15:00 23:00 07:00 Intake Total 140 ml 140 ml 1072 ml Output Total 550 ml Balance 140 ml -410 ml 1072 ml Nutrition Consultation Dietary Evaluation: Comments: Rec. continue the TF's until able to pass speech evaluation, may take up to another 10-14 days which is appropriate to contine NG Tf up to total of ~30 days short term Expected Outcomes/Goals: tolerate TF's at goal rate - goal ongoing diet adv Malnutrition Findings: Food and Nutrition Intake (Mod: <75% est energy req 7days Body Fat Depletion (Non Severe: Mod to Severe Reduced Senior Analytical Chemist Strength: N/A Reduced Senior Analytical Chemist Strength (Non-Sev: N/A Weight Status: Underweight Fluid Accumulation (N/A): N/A JOIE MCKEE III DO Aug 22, 2016 14:12
[2016-08-22 14:35] VITALS: BP 122/78
[2016-08-22] MEDS: AMINO AC 3%/ELECTROLYTE/GLYCER 1,000 ML IV SCH (17:40)
[2016-08-22] MEDS: MORPHINE SULFATE 2 MG/ML DISP.SYRIN. IV PRN ×2 (18:15→21:34)
[2016-08-22 19:00] VITALS: BP 88/55
[2016-08-22] MEDS: LEVETIRACETAM IV SCH (21:33)
[2016-08-22] MEDS: NORMAL SALINE IV SCH (21:33)
[2016-08-22 22:06] VITALS: BP 113/79
[2016-08-23 02:25] VITALS: BP 127/86
[2016-08-23] MEDS: MORPHINE SULFATE 2 MG/ML DISP.SYRIN. IV PRN ×5 (02:36→21:19)
[2016-08-23] MEDS: AMINO AC 3%/ELECTROLYTE/GLYCER 1,000 ML IV SCH ×2 (03:45→17:14)
[2016-08-23] MEDS: dilTIAZem HCL 30 MG TABLET PO SCH ×4 (05:15→17:04)
[2016-08-23 06:55] VITALS: BP 113/73
[2016-08-23] MEDS: IPRATROPIUM BROMIDE 0.5 MG/2.5 ML NEBU. NEB SCH ×4 (07:16→19:53)
[2016-08-23] MEDS: ASPIRIN 325 MG TABLET FT SCH (08:00)
[2016-08-23] MEDS: METOPROLOL TART IMMED RELEASE 25 MG TABLET. FT SCH (09:00)
[2016-08-23] MEDS: POTASSIUM CHLORIDE 20 MEQ/15 ML ORAL LIQUID. PEG SCH (09:00)
[2016-08-23] MEDS: LANSOPRAZOLE 30 MG TAB.RAP.DR FT SCH (09:00)
[2016-08-23] MEDS: THIAMINE 100 MG TABLET. PO SCH (09:00)
[2016-08-23] MEDS: rifAXIMin 550 MG TABLET PO SCH ×2 (09:00→21:00)
--- NOTE | 2016-08-23 09:04 | PDOC ---
PROGRESS NOTES Assessment Problems Medical Problems: (1) Alcohol withdrawal Status: Acute (2) Hepatic encephalopathy Status: Acute (3) Lactic acid acidosis Status: Acute (4) Respiratory failure Status: Acute Seizure x 2 on 08/08/16, alcohol related. Metabolic encephalopathy. Tiny right frontal and parietal junction infract, asymptomatic, incidental finding. Plan Continue Keppra, decreased to 125 mg bid and will taper it off in 2-3 days. Subjective no complaints Objective Vital Signs Date Time Temp Pulse Resp B/P (MAP) Pulse Ox O2 Delivery O2 Flow Rate FiO2 08/23/16 08:05 Room Air 08/23/16 06:55 97.5 79 18 113/73 (86) 99 97.5 08/23/16 02:36 3.5 Intake and Output 08/23/16 07:00 Intake Total 601.25 ml Output Total 400 ml Balance 201.25 ml Intake Oral 0 ml IV Total 101.25 ml Tube Feeding 140 ml Other 360 ml Output Urine Total 400 ml # Voids 7 PHYSICAL EXAM Alert. Oriented to time, place and person. PERRL. EOMI. CN: no focal findings. Muscle tone: normal. Muscle strength: 5-/5 DTR: 2+ Plantar reflex: flexor Gait: not examined in bed. Sensory exam: no abnormal findings. No cerebellar signs elicited. Review of Relevant I have reviewed the following items chikis (where applicable) has been applied. Labs Laboratory Tests Test 08/22/16 20:40 Ammonia < 10 mcmol/L (11-34) Laboratory Tests Test 08/22/16 20:40 Ammonia < 10 mcmol/L (11-34) Microbiology 08/11/16 Blood Culture - Final, Complete NO GROWTH AFTER 5 DAYS 08/11/16 Urine Culture - Final, Complete 08/11/16 Urine Culture Result 1 (JENNY) - Final, Complete 08/11/16 Antimicrobic Susceptibility - Final, Complete Medications Current Medications Diltiazem HCl (Cardizem) 25 mg STK-MED ONCE .ROUTE ; Start 08/08/16 at 10:37; Stop 08/08/16 at 10:38; Status DC Diltiazem HCl 125 mg/Dextrose 125 ml @ 0 mls/hr CONT PRN IV SEE I/O RECORD Last administered on 08/12/16t 06:20; Start 08/08/16 at 11:00; Stop 08/12/16 at 12:30; Status DC Diltiazem HCl (Cardizem) 20 mg 1X ONCE IVP Last administered on 08/08/16 10: 40; Start 08/08/16 at 11:00; Stop 08/08/16 at 11:01; Status DC Lorazepam (Ativan) 2 mg STK-MED ONCE .ROUTE ; Start 08/08/16 at 10:55; Stop 01/14 at 10:56; Status DC Iohexol (Omnipaque 350 Mg/ml) 90 ml 1X ONCE IV Last administered on 08/08/16 11:15; Start 08/08/16 at 11:15; Stop 08/08/16 at 11:16; Status DC Propofol 20 ml @ 0 mls/hr 1X ONCE IV Last administered on 08/08/16 11:20; Start 08/08/16 at 11:15; Stop 08/08/16 at 11:16; Status DC Info (Do NOT chart on this entry -- for MONITORING) 1 each PRN DAILY PRN MC SEE COMMENTS; Start 08/08/16 at 11:15; Stop 08/10/16 at 09:37; Status DC Fentanyl Citrate (Fentanyl 2ml Vial) 100 mcg 1X ONCE IV Last administered on 11:03; Start 08/08/16 at 11:15; Stop 08/08/16 at 11:16; Status DC Fentanyl Citrate (Fentanyl 2ml Vial) 100 mcg 1X ONCE IV Last administered on 11:16; Start 08/08/16 at 11:15; Stop 08/08/16 at 11:16; Status DC Propofol 50 ml @ As Directed STK-MED ONCE IV ; Start 08/08/16 at 11:17; Stop 01/14 at 11:18; Status DC Ondansetron HCl (Zofran) 4 mg PRN Q8HRS PRN IV NAUSEA/VOMITING; Start 08/08/16 at 11:30; Stop 08/09/16 at 11:29; Status DC Fentanyl Citrate (Fentanyl 2ml Vial) 50 mcg PRN Q2HR PRN IV PAIN Last administered on 08/08/16 13:16; Start 08/08/16 at 11:30; Stop 08/09/16 at 11:29 ; Status DC Levetiracetam 1000 mg/Sodium Chloride 110 ml @ 440 mls/hr 1X ONCE IV Last administered on 08/08/16 11:39; Start 08/08/16 at 11:45; Stop 08/08/16 at 11:59 ; Status DC Fentanyl Citrate (Fentanyl 2ml Vial) 100 mcg 1X ONCE IV ; Start 08/08/16 at 11: 45; Stop 08/08/16 at 11:46; Status DC Propofol 50 ml @ As Directed STK-MED ONCE IV ; Start 08/08/16 at 12:09; Stop 01/14 at 12:10; Status DC Lorazepam (Ativan) 2 mg 1X ONCE IV ; Start 08/08/16 at 13:00; Stop 08/08/16 at 13:01; Status DC Succinylcholine Chloride (Anectine) 100 mg 1X ONCE IV ; Start 08/08/16 at 13:00 ; Stop 08/08/16 at 13:01; Status DC Etomidate (Amidate) 20 mg 1X ONCE IV ; Start 08/08/16 at 13:00; Stop 08/08/16 at 13:01; Status DC Propofol 100 ml @ 0 mls/hr CONT PRN IV PER PROTOCOL Last administered on 09:08; Start 08/08/16 at 13:45; Stop 08/11/16 at 10:11; Status DC Fentanyl Citrate (Fentanyl 2ml Vial) 50 mcg PRN Q1HR PRN IV COMM Last administered on 08/19/16 15:12; Start 08/08/16 at 13:45; Stop 08/19/16 at 15:17 ; Status DC Chlorhexidine Gluconate (Peridex) 15 ml BID MM Last administered on 08/09/16 09:08; Start 08/08/16 at 21:00; Stop 08/10/16 at 08:29; Status DC Ipratropium [place] (Atrovent) 0.5 mg RTQID NEB Last administered on 08/23/16 07:16; Start 08/08/16 at 16:00 Metoprolol Tartrate (Lopressor) 12.5 mg BID PO Last administered on 08/08/16 21:51; Start 08/08/16 at 14:30; Stop 08/10/16 at 09:48; Status DC Lorazepam (Ativan) 1 mg PRN Q4HRS PRN IV ANXIETY / AGITATION Last administered on 08/16/16 21:25; Start 08/08/16 at 14:45; Stop 08/20/16 at 12:24; Status DC Levetiracetam (Keppra) 500 mg Q12HR PO Last administered on 08/15/16 21:30; Start 08/08/16 at 21:00; Stop 08/16/16 at 17:14; Status DC Multivitamins 10 ml/Folic Acid 1 mg/Thiamine HCl 100 mg/Sodium Chloride 1,011.2 ml @ 100 mls/ hr Q24H IV Last administered on 08/17/16 16:12; Start 08/08/16 at 16:00; Stop 08/17/16 at 16:20; Status DC Lorazepam (Ativan) 2 mg PRN Q4HRS PRN IV ANXIETY / AGITATION Last administered on 08/10/16 11:11; Start 08/08/16 at 15:15; Stop 08/13/16 at 11:08; Status DC Aspirin (Zunilda Aspirin) 325 mg DAILY PO Last administered on 08/09/16 09:09; Start 08/09/16 at 09:00; Stop 08/10/16 at 09:48; Status DC Diltiazem HCl (Cardizem 24hr Cd) 240 mg DAILY PO ; Start 08/09/16 at 09:00; Stop 08/10/16 at 09:48; Status DC Lactulose 20 gm Q48H PO Last administered on 08/09/16 09:13; Start 08/09/16 at 09:00; Stop 08/09/16 at 16:32; Status DC Pantoprazole Sodium (Protonix) 40 mg DAILYAC PO ; Start 08/09/16 at 07:30; Stop 08/09/16 at 09:36; Status DC Non-Formulary Medication 100 mg DAILY PO Last administered on 08/13/16 10:02; Start 08/09/16 at 09:00; Stop 08/13/16 at 11:09; Status UNV Pantoprazole Sodium (Protonix Vial) 40 mg DAILYAC IVP Last administered on 08/18 09:24; Start 08/09/16 at 10:00; Stop 08/18/16 at 10:07; Status DC Iohexol (Omnipaque 300 Mg/ml) 75 ml 1X ONCE IV ; Start 08/09/16 at 14:00; Stop 08/09/16 at 14:01; Status DC Info (Do NOT chart on this entry -- for MONITORING) 1 each PRN DAILY PRN MC SEE COMMENTS; Start 08/09/16 at 14:00; Stop 08/11/16 at 13:59; Status DC Lactulose 20 gm BID PO Last administered on 08/11/16 10:27; Start 08/09/16 at 21:00; Stop 08/11/16 at 10:52; Status DC Lorazepam (Ativan) 2 mg PRN Q1HR PRN IV For CIWA 8-14 Last administered on 08/22 14:03; Start 08/09/16 at 20:45 Lorazepam (Ativan) 4 mg PRN Q1HR PRN IV For CIWA 15 or greater Last administered on 08/23/16 05:02; Start 08/09/16 at 20:45 Haloperidol Lactate (Haldol) 5 mg PRN Q4HRS PRN IVP Hallucinatns,Confusn, Delirium Last administered on 08/10/16 12:29; Start 08/09/16 at 20:45; Stop at 10:11; Status DC Metoprolol Tartrate (Lopressor) 5 mg PRN Q4HRS PRN IVP ELEVATED BP, SEE COMMENTS Last administered on 08/10/16 02:49; Start 08/09/16 at 22:15; Stop at 09:48; Status DC Diltiazem HCl (Cardizem) 5 mg 1X ONCE IVP Last administered on 08/10/16 08:22 ; Start 08/10/16 at 08:15; Stop 08/10/16 at 08:16; Status DC Metoprolol Tartrate (Lopressor) 5 mg Q6HRS PRN IVP ELEVATED BP, SEE COMMENTS; Start 08/10/16 at 09:45; Stop 08/10/16 at 10:05; Status DC Aspirin (Aspirin) 300 mg DAILY NE Last administered on 08/12/16 08:21; Start 08/10/16 at 09:45; Stop 08/12/16 at 11:14; Status DC Magnesium Sulfate/ Dextrose 50 ml @ 25 mls/hr 1X ONCE IV Last administered on 08/10/16 10:56; Start 08/10/16 at 10:00; Stop 08/10/16 at 11:59; Status DC Metoprolol Tartrate (Lopressor) 5 mg Q6HRS IVP Last administered on 08/12/16 05:00; Start 08/10/16 at 10:15; Stop 08/12/16 at 11:14; Status DC Enoxaparin Sodium (Lovenox 30mg Syringe) 30 mg Q24H SQ ; Start 08/10/16 at 15:00 ; Stop 08/10/16 at 15:00; Status DC Enoxaparin Sodium (Lovenox 40mg Syringe) 40 mg Q24H SQ Last administered on 12:54; Start 08/10/16 at 15:00 Acetaminophen (Tylenol) 650 mg PRN Q6HRS PRN PEG MILD PAIN / TEMP Last administered on 08/19/16 21:13; Start 08/10/16 at 23:45 Succinylcholine Chloride (Anectine) 200 mg STK-MED ONCE .ROUTE ; Start 08/11/16 at 01:30; Stop 08/11/16 at 01:31; Status DC Succinylcholine Chloride (Anectine) 200 mg STK-MED ONCE .ROUTE ; Start 08/11/16 at 01:30; Stop 08/11/16 at 08:48; Status DC Haloperidol Lactate (Haldol) 2.5 mg PRN Q4HRS PRN IVP Hallucinatns,Confusn, Delirium; Start 08/11/16 at 10:15 Potassium Chloride (KCl Oral Soln) 40 meq 1X ONCE PEG Last administered on 10:30; Start 08/11/16 at 10:30; Stop 08/11/16 at 10:31; Status DC Potassium Chloride (KCl Oral Soln) 40 meq 1X ONCE PEG Last administered on 16:00; Start 08/11/16 at 15:00; Stop 08/11/16 at 15:01; Status DC Digoxin (Lanoxin) 500 mcg 1X ONCE IV Last administered on 08/11/16 10:30; Start 08/11/16 at 10:30; Stop 08/11/16 at 10:31; Status DC Lactulose 20 gm QD PO Last administered on 08/14/16 09:54; Start 08/12/16 at 09:00; Stop 08/15/16 at 11:50; Status DC Phenylephrine HCl 20 mg/Sodium Chloride 252 ml @ 0 mls/hr 1X ONCE IV ; Start at 14:30; Stop 08/11/16 at 14:31; Status Cancel Magnesium Sulfate/ Dextrose 50 ml @ 25 mls/hr 1X ONCE IV Last administered on 08/12/16 09:32; Start 08/12/16 at 09:00; Stop 08/12/16 at 10:59; Status DC Magnesium Sulfate/ Dextrose 50 ml @ 25 mls/hr 1X ONCE IV Last administered on 08/12/16 17:56; Start 08/12/16 at 16:00; Stop 08/12/16 at 17:59; Status DC Potassium Chloride (KCl Oral Soln) 20 meq BID PEG Last administered on 21:52; Start 08/12/16 at 11:15; Stop 08/13/16 at 09:46; Status DC Diltiazem HCl (Cardizem) 60 mg Q6HRS PO Last administered on 08/22/16 12:26; Start 08/12/16 at 11:30 Metoprolol Tartrate (Lopressor) 25 mg BID FT Last administered on 08/12/16 21: 53; Start 08/12/16 at 21:00; Stop 08/13/16 at 09:46; Status DC Aspirin (Zunilda Aspirin) 325 mg DAILYWBKFT FT Last administered on 08/22/16 09: 38; Start 08/13/16 at 08:00 Ceftriaxone Sodium 1 gm/ Sodium Chloride 50 ml @ 100 mls/hr Q24H IV Last administered on 08/16/16 17:51; Start 08/12/16 at 17:00; Stop 08/17/16 at 10:33 ; Status DC Metoprolol Tartrate (Lopressor) 50 mg BID FT Last administered on 08/22/16 09: 39; Start 08/13/16 at 10:00 Potassium Chloride (KCl Oral Soln) 20 meq TID PEG Last administered on 21:33; Start 08/13/16 at 10:00 Magnesium Sulfate/ Dextrose 50 ml @ 25 mls/hr 1X ONCE IV Last administered on 08/13/16 11:26; Start 08/13/16 at 10:00; Stop 08/13/16 at 11:59; Status DC Potassium Chloride (Klor-Con) 40 meq 1X ONCE PO ; Start 08/15/16 at 14:00; Stop 08/15/16 at 14:01; Status DC Barium Sulfate (Varibar Thin Liquid [place]) 148 gm 1X ONCE PO Last administered on 08/16/16 12:55; Start 08/16/16 at 12:00; Stop 08/16/16 at 12:01 ; Status DC Levetiracetam (Keppra) 250 mg Q12HR PO Last administered on 08/19/16 08:56; Start 08/16/16 at 21:00; Stop 08/19/16 at 16:31; Status DC Rifaximin (Xifaxan) 550 mg Q12HR PO Last administered on 08/22/16 09:38; Start 08/17/16 at 13:30 Thiamine Mononitrate (Vitamin B-1) 100 mg DAILY PO Last administered on 09:40; Start 08/17/16 at 17:00 Potassium Chloride (Klor-Con) 40 meq 1X ONCE PO ; Start 08/18/16 at 09:45; Stop 08/18/16 at 09:46; Status Cancel Lansoprazole (Prevacid) 30 mg DAILY FT Last administered on 08/22/16 09:40; Start 08/19/16 at 09:00 Potassium Chloride (KCl Oral Soln) 20 meq 1X ONCE PEG Last administered on 13:13; Start 08/18/16 at 13:00; Stop 08/18/16 at 13:10; Status DC Acetaminophen/ Hydrocodone Bitart (Lortab 7.5-325/ 15ml Oral Solution) 10 ml PRN Q6HRS PRN NG MODERATE TO SEVERE PAIN Last administered on 08/22/16 12:55; Start 08/19/16 at 15:15; Stop 08/22/16 at 13:26; Status DC Levetiracetam (Keppra) 125 mg BID PO Last administered on 08/21/16 08:08; Start 08/19/16 at 21:00; Stop 08/21/16 at 09:03; Status DC Levetiracetam (Keppra) 125 mg BID PO Last administered on 08/22/16 09:40; Start 08/21/16 at 21:00; Stop 08/22/16 at 17:03; Status DC Acetaminophen/ Hydrocodone Bitart (Lortab 7.5-325/ 15ml Oral Solution) 10 ml PRN Q4HRS PRN NG MODERATE TO SEVERE PAIN; Start 08/22/16 at 15:15 Amino Acids/ Glycerin/ Electrolytes 1,000 ml @ 75 mls/hr [id number] IV Last administered on 08/23/16 03:45; Start 08/22/16 at 17:00 Levetiracetam 125 mg/Sodium Chloride 101.25 ml @ 400 mls/ hr Q12HR IV Last administered on 08/22/16 21:33; Start 08/22/16 at 21:00 Morphine Sulfate 2 mg PRN Q2HR PRN IV PAIN Last administered on 08/23/16 07:18 ; Start 08/22/16 at 18:15 Active Scripts Active Lactulose 20 Gm/30 Ml Solution 20 Gm PO QODAY Ativan (Lorazepam) 0.5 Mg Tablet 0.5 Mg PO BID Diltiazem 24HR Cd (Diltiazem Hcl) 240 Mg Cap.er.24h 240 Mg PO DAILY Vitamin B-1 (Thiamine Hcl) 100 Mg Tablet 100 Mg PO DAILY [place] 5-325 Tablet (Acetaminophen/Hydrocodone Bitart) 1 Each Tablet 1 Tab PO PRN Q6HRS PRN Reported Omeprazole 20 Mg Capsule.dr 20 Mg PO DAILY Zofran Odt (Ondansetron) 8 Mg Tab.rapdis 1 Tab PO PRN Q8HRS PRN [place] 4.2-0.7 mg Film (Buprenorphine HCl/Naloxone HCl) 1 Each Film 1 Each BC DAILY Vitals/I & O Vital Sign - Last 24 Hours 08/22/16 08/22/16 08/22/16 08/22/16 09:09 09:39 10:45 11:53 Temp 98.8 98.8 Pulse 70 63 Resp 18 18 B/P (MAP) 105/76 128/82 (97) Pulse Ox 98 97 O2 Delivery Room Air Room Air Room Air 08/22/16 08/22/16 08/22/16 08/22/16 12:26 12:55 14:35 18:15 Temp 98.8 98.8 Pulse 63 67 Resp 18 18 18 B/P (MAP) 128/82 122/78 (93) Pulse Ox 98 O2 Delivery Room Air Room Air Room Air 08/22/16 08/22/16 08/22/16 08/22/16 18:45 19:00 19:19 20:00 Temp 97.9 97.9 Pulse 61 Resp 18 18 B/P (MAP) 88/55 (66) Pulse Ox 99 96 O2 Delivery Room Air Room Air Room Air O2 Flow Rate 3.5 08/22/16 08/22/16 08/23/16 08/23/16 21:34 22:06 00:00 02:25 Temp 97.7 97.9 97.7 97.9 Pulse 63 63 76 Resp 18 18 B/P (MAP) 113/79 (90) 113/79 127/86 (100) Pulse Ox 96 98 97 O2 Delivery Room Air Room Air Room Air O2 Flow Rate 3.5 08/23/16 08/23/16 08/23/16 08/23/16 02:36 03:06 05:15 06:55 Temp 97.5 97.5 Pulse 76 79 Resp 20 18 B/P (MAP) 127/86 113/73 (86) Pulse Ox 97 99 O2 Delivery Room Air Room Air Room Air O2 Flow Rate 3.5 08/23/16 08/23/16 08/23/16 07:17 07:18 08:05 O2 Delivery Room Air Room Air Room Air Intake and Output 08/22/16 08/22/16 08/23/16 15:00 23:00 07:00 Intake Total 500 ml 101.25 ml 0 ml Output Total 200 ml 200 ml Balance 300 ml 101.25 ml -200 ml VALENTINO CABRERA MD Aug 23, 2016 09:04
[2016-08-23] MEDS ORDERED: fentaNYL PF VIAL 100 MCG/2 ML VIAL IV ONE (09:45)
[2016-08-23] MEDS: NORMAL SALINE IV SCH ×2 (09:52→21:18)
[2016-08-23] MEDS: LEVETIRACETAM IV SCH ×2 (09:52→21:18)
[2016-08-23 10:00] VITALS: BP 100/69
--- NOTE | 2016-08-23 10:13 | PDOC ---
PROGRESS NOTES Chief Complaint Chief Complaint Seizure like activity likely ETOH, withdrawl 1. Acute hypoxic respiratory failure, POA: extubated 08/09, on NC 2. Hepatic encephalopathy 3. EtOH/ HCV cirrhosis: endstage liver 4. Noncompliance w. prior medical advice 5. Debility: weakness, aquired 6. Dysphagia 7. Malnutrition, mod/severe 8. Paroxysmal Afib, now in sinus rhythm 9. Hypokalemia 10. Back pain, acute on chronic History of Present Illness History of Present Illness on 1:1 obs, was taking out lines, he removed his dobhoff, much more calm this AM than yesterday he would like to go home Video swallow today Vitals Vitals Vital Signs Date Time Temp Pulse Resp B/P (MAP) Pulse Ox O2 Delivery O2 Flow Rate FiO2 08/23/16 09:53 16 Room Air 08/23/16 06:55 97.5 79 113/73 (86) 99 97.5 08/23/16 02:36 3.5 Physical Exam General: Alert, Cooperative, No acute distress Heart: Regular rate Lungs: Clear Abdomen: Normal bowel sounds, No tenderness, Other (NG in place) Extremities: No clubbing, No cyanosis, No edema Skin: No significant lesion Labs LABS Laboratory Tests Test 08/22/16 20:40 Ammonia < 10 mcmol/L (-) Review of Systems Review of Systems back pain nausea hungry Assessment and Plan Assessmemt and Plan Problems Medical Problems: (1) Alcohol withdrawal Status: Acute (2) Hepatic encephalopathy Status: Acute (3) Lactic acid acidosis Status: Acute (4) Respiratory failure Status: Acute Problems: Comment Review of Relevant I have reviewed the following items chikis (where applicable) has been applied. Labs Laboratory Tests Test 08/22/16 20:40 Ammonia < 10 mcmol/L (11-34) Laboratory Tests Test 08/22/16 20:40 Ammonia < 10 mcmol/L (-) Microbiology 08/11/16 Blood Culture - Final, Complete NO GROWTH AFTER 5 DAYS 08/11/16 Urine Culture - Final, Complete 08/11/16 Urine Culture Result 1 (JENNY) - Final, Complete 08/11/16 Antimicrobic Susceptibility - Final, Complete Medications Current Medications Diltiazem HCl (Cardizem) 25 mg STK-MED ONCE .ROUTE ; Start 08/08/16 at 10:37; Stop 08/08/16 at 10:38; Status DC Diltiazem HCl 125 mg/Dextrose 125 ml @ 0 mls/hr CONT PRN IV SEE I/O RECORD Last administered on 08/12/16 06:20; Start 08/08/16 at 11:00; Stop 08/12/16 at 12:30; Status DC Diltiazem HCl (Cardizem) 20 mg 1X ONCE IVP Last administered on 08/08/16 10: 40; Start 08/08/16 at 11:00; Stop 08/08/16 at 11:01; Status DC Lorazepam (Ativan) 2 mg STK-MED ONCE .ROUTE ; Start 08/08/16 at 10:55; Stop 01/14 at 10:56; Status DC Iohexol (Omnipaque 350 Mg/ml) 90 ml 1X ONCE IV Last administered on 08/08/16 11:15; Start 08/08/16 at 11:15; Stop 08/08/16 at 11:16; Status DC Propofol 20 ml @ 0 mls/hr 1X ONCE IV Last administered on 08/08/16 11:20; Start 08/08/16 at 11:15; Stop 08/08/16 at 11:16; Status DC Info (Do NOT chart on this entry -- for MONITORING) 1 each PRN DAILY PRN MC SEE COMMENTS; Start 08/08/16 at 11:15; Stop 08/10/16 at 09:37; Status DC Fentanyl Citrate (Fentanyl 2ml Vial) 100 mcg 1X ONCE IV Last administered on 11:03; Start 08/08/16 at 11:15; Stop 08/08/16 at 11:16; Status DC Fentanyl Citrate (Fentanyl 2ml Vial) 100 mcg 1X ONCE IV Last administered on 11:16; Start 08/08/16 at 11:15; Stop 08/08/16 at 11:16; Status DC Propofol 50 ml @ As Directed STK-MED ONCE IV ; Start 08/08/16 at 11:17; Stop 01/14 at 11:18; Status DC Ondansetron HCl (Zofran) 4 mg PRN Q8HRS PRN IV NAUSEA/VOMITING; Start 08/08/16 at 11:30; Stop 08/09/16 at 11:29; Status DC Fentanyl Citrate (Fentanyl 2ml Vial) 50 mcg PRN Q2HR PRN IV PAIN Last administered on 08/08/16 13:16; Start 08/08/16 at 11:30; Stop 08/09/16 at 11:29 ; Status DC Levetiracetam 1000 mg/Sodium Chloride 110 ml @ 440 mls/hr 1X ONCE IV Last administered on 08/08/16 11:39; Start 08/08/16 at 11:45; Stop 08/08/16 at 11:59 ; Status DC Fentanyl Citrate (Fentanyl 2ml Vial) 100 mcg 1X ONCE IV ; Start 08/08/16 at 11: 45; Stop 08/08/16 at 11:46; Status DC Propofol 50 ml @ As Directed STK-MED ONCE IV ; Start 08/08/16 at 12:09; Stop 01/14 at 12:10; Status DC Lorazepam (Ativan) 2 mg 1X ONCE IV ; Start 08/08/16 at 13:00; Stop 08/08/16 at 13:01; Status DC Succinylcholine Chloride (Anectine) 100 mg 1X ONCE IV ; Start 08/08/16 at 13:00 ; Stop 08/08/16 at 13:01; Status DC Etomidate (Amidate) 20 mg 1X ONCE IV ; Start 08/08/16 at 13:00; Stop 08/08/16 at 13:01; Status DC Propofol 100 ml @ 0 mls/hr CONT PRN IV PER PROTOCOL Last administered on 09:08; Start 08/08/16 at 13:45; Stop 08/11/16 at 10:11; Status DC Fentanyl Citrate (Fentanyl 2ml Vial) 50 mcg PRN Q1HR PRN IV COMM Last administered on 08/19/16 15:12; Start 08/08/16 at 13:45; Stop 08/19/16 at 15:17 ; Status DC Chlorhexidine Gluconate (Peridex) 15 ml BID MM Last administered on 08/09/16 09:08; Start 08/08/16 at 21:00; Stop 08/10/16 at 08:29; Status DC Ipratropium Bloomer (Atrovent) 0.5 mg RTQID NEB Last administered on 08/23/16 07:16; Start 08/08/16 at 16:00 Metoprolol Tartrate (Lopressor) 12.5 mg BID PO Last administered on 08/08/16 21:51; Start 08/08/16 at 14:30; Stop 08/10/16 at 09:48; Status DC Lorazepam (Ativan) 1 mg PRN Q4HRS PRN IV ANXIETY / AGITATION Last administered on 08/16/16 21:25; Start 08/08/16 at 14:45; Stop 08/20/16 at 12:24; Status DC Levetiracetam (Keppra) 500 mg Q12HR PO Last administered on 08/15/16 21:30; Start 08/08/16 at 21:00; Stop 08/16/16 at 17:14; Status DC Multivitamins 10 ml/Folic Acid 1 mg/Thiamine HCl 100 mg/Sodium Chloride 1,011.2 ml @ 100 mls/ hr Q24H IV Last administered on 08/17/16 16:12; Start 08/08/16 at 16:00; Stop 08/17/16 at 16:20; Status DC Lorazepam (Ativan) 2 mg PRN Q4HRS PRN IV ANXIETY / AGITATION Last administered on 08/10/16 11:11; Start 08/08/16 at 15:15; Stop 08/13/16 at 11:08; Status DC Aspirin (Zunilda Aspirin) 325 mg DAILY PO Last administered on 08/09/16 09:09; Start 08/09/16 at 09:00; Stop 08/10/16 at 09:48; Status DC [facility] 240 mg DAILY PO ; Start 08/09/16 at 09:00; Stop 08/10/16 at 09:48; Status DC Lactulose 20 gm Q48H PO Last administered on 08/09/16 09:13; Start 08/09/16 at 09:00; Stop 08/09/16 at 16:32; Status DC Pantoprazole Sodium (Protonix) 40 mg DAILYAC PO ; Start 08/09/16 at 07:30; Stop 08/09/16 at 09:36; Status DC Non-Formulary Medication 100 mg DAILY PO Last administered on 08/13/16 10:02; Start 08/09/16 at 09:00; Stop 08/13/16 at 11:09; Status UNV Pantoprazole Sodium (Protonix Vial) 40 mg DAILYAC IVP Last administered on 08/18 09:24; Start 08/09/16 at 10:00; Stop 08/18/16 at 10:07; Status DC Iohexol (Omnipaque 300 Mg/ml) 75 ml 1X ONCE IV ; Start 08/09/16 at 14:00; Stop 08/09/16 at 14:01; Status DC Info (Do NOT chart on this entry -- for MONITORING) 1 each PRN DAILY PRN MC SEE COMMENTS; Start 08/09/16 at 14:00; Stop 08/11/16 at 13:59; Status DC Lactulose 20 gm BID PO Last administered on 08/11/16 10:27; Start 08/09/16 at 21:00; Stop 08/11/16 at 10:52; Status DC Lorazepam (Ativan) 2 mg PRN Q1HR PRN IV For CIWA 8-14 Last administered on 08/22 14:03; Start 08/09/16 at 20:45 Lorazepam (Ativan) 4 mg PRN Q1HR PRN IV For CIWA 15 or greater Last administered on 08/23/16 05:02; Start 08/09/16 at 20:45 Haloperidol Lactate (Haldol) 5 mg PRN Q4HRS PRN IVP Hallucinatns,Confusn, Delirium Last administered on 08/10/16 12:29; Start 08/09/16 at 20:45; Stop at 10:11; Status DC Metoprolol Tartrate (Lopressor) 5 mg PRN Q4HRS PRN IVP ELEVATED BP, SEE COMMENTS Last administered on 08/10/16 02:49; Start 08/09/16 at 22:15; Stop at 09:48; Status DC Diltiazem HCl (Cardizem) 5 mg 1X ONCE IVP Last administered on 08/10/16 08:22 ; Start 08/10/16 at 08:15; Stop 08/10/16 at 08:16; Status DC Metoprolol Tartrate (Lopressor) 5 mg Q6HRS PRN IVP ELEVATED BP, SEE COMMENTS; Start 08/10/16 at 09:45; Stop 08/10/16 at 10:05; Status DC Aspirin (Aspirin) 300 mg DAILY CO Last administered on 08/12/16 08:21; Start 08/10/16 at 09:45; Stop 08/12/16 at 11:14; Status DC Magnesium Sulfate/ Dextrose 50 ml @ 25 mls/hr 1X ONCE IV Last administered on 08/10/16 10:56; Start 08/10/16 at 10:00; Stop 08/10/16 at 11:59; Status DC Metoprolol Tartrate (Lopressor) 5 mg Q6HRS IVP Last administered on 08/12/16 05:00; Start 08/10/16 at 10:15; Stop 08/12/16 at 11:14; Status DC Enoxaparin Sodium (Lovenox 30mg Syringe) 30 mg Q24H SQ ; Start 08/10/16 at 15:00 ; Stop 08/10/16 at 15:00; Status DC Enoxaparin Sodium (Lovenox 40mg Syringe) 40 mg Q24H SQ Last administered on 12:54; Start 08/10/16 at 15:00 Acetaminophen (Tylenol) 650 mg PRN Q6HRS PRN PEG MILD PAIN / TEMP Last administered on 08/19/16 21:13; Start 08/10/16 at 23:45 Succinylcholine Chloride (Anectine) 200 mg STK-MED ONCE .ROUTE ; Start 08/11/16 at 01:30; Stop 08/11/16 at 01:31; Status DC Succinylcholine Chloride (Anectine) 200 mg STK-MED ONCE .ROUTE ; Start 08/11/16 at 01:30; Stop 08/11/16 at 08:48; Status DC Haloperidol Lactate (Haldol) 2.5 mg PRN Q4HRS PRN IVP Hallucinatns,Confusn, Delirium; Start 08/11/16 at 10:15 Potassium Chloride (KCl Oral Soln) 40 meq 1X ONCE PEG Last administered on 10:30; Start 08/11/16 at 10:30; Stop 08/11/16 at 10:31; Status DC Potassium Chloride (KCl Oral Soln) 40 meq 1X ONCE PEG Last administered on 16:00; Start 08/11/16 at 15:00; Stop 08/11/16 at 15:01; Status DC Digoxin (Lanoxin) 500 mcg 1X ONCE IV Last administered on 08/11/16 10:30; Start 08/11/16 at 10:30; Stop 08/11/16 at 10:31; Status DC Lactulose 20 gm QD PO Last administered on 08/14/16 09:54; Start 08/12/16 at 09:00; Stop 08/15/16 at 11:50; Status DC Phenylephrine HCl 20 mg/Sodium Chloride 252 ml @ 0 mls/hr 1X ONCE IV ; Start at 14:30; Stop 08/11/16 at 14:31; Status Cancel Magnesium Sulfate/ Dextrose 50 ml @ 25 mls/hr 1X ONCE IV Last administered on 08/12/16 09:32; Start 08/12/16 at 09:00; Stop 08/12/16 at 10:59; Status DC Magnesium Sulfate/ Dextrose 50 ml @ 25 mls/hr 1X ONCE IV Last administered on 08/12/16 17:56; Start 08/12/16 at 16:00; Stop 08/12/16 at 17:59; Status DC Potassium Chloride (KCl Oral Soln) 20 meq BID PEG Last administered on 21:52; Start 08/12/16 at 11:15; Stop 08/13/16 at 09:46; Status DC Diltiazem HCl (Cardizem) 60 mg Q6HRS PO Last administered on 08/22/16 12:26; Start 08/12/16 at 11:30 Metoprolol Tartrate (Lopressor) 25 mg BID FT Last administered on 08/12/16 21: 53; Start 08/12/16 at 21:00; Stop 08/13/16 at 09:46; Status DC Aspirin (Zunilda Aspirin) 325 mg [id number] FT Last administered on 08/22/16 09: 38; Start 08/13/16 at 08:00 Ceftriaxone Sodium 1 gm/ Sodium Chloride 50 ml @ 100 mls/hr Q24H IV Last administered on 08/16/16 17:51; Start 08/12/16 at 17:00; Stop 08/17/16 at 10:33 ; Status DC Metoprolol Tartrate (Lopressor) 50 mg BID FT Last administered on 08/22/16 09: 39; Start 08/13/16 at 10:00 Potassium Chloride (KCl Oral Soln) 20 meq TID PEG Last administered on 21:33; Start 08/13/16 at 10:00 Magnesium Sulfate/ Dextrose 50 ml @ 25 mls/hr 1X ONCE IV Last administered on 08/13/16 11:26; Start 08/13/16 at 10:00; Stop 08/13/16 at 11:59; Status DC Potassium Chloride (Klor-Con) 40 meq 1X ONCE PO ; Start 08/15/16 at 14:00; Stop 08/15/16 at 14:01; Status DC Barium Sulfate (Varibar Thin Liquid Apple) 148 gm 1X ONCE PO Last administered on 08/16/16 12:55; Start 08/16/16 at 12:00; Stop 08/16/16 at 12:01 ; Status DC Levetiracetam (Keppra) 250 mg Q12HR PO Last administered on 08/19/16 08:56; Start 08/16/16 at 21:00; Stop 08/19/16 at 16:31; Status DC Rifaximin (Xifaxan) 550 mg Q12HR PO Last administered on 08/22/16 09:38; Start 08/17/16 at 13:30 Thiamine Mononitrate (Vitamin B-1) 100 mg DAILY PO Last administered on 09:40; Start 08/17/16 at 17:00 Potassium Chloride (Klor-Con) 40 meq 1X ONCE PO ; Start 08/18/16 at 09:45; Stop 08/18/16 at 09:46; Status Cancel Lansoprazole (Prevacid) 30 mg DAILY FT Last administered on 08/22/16 09:40; Start 08/19/16 at 09:00 Potassium Chloride (KCl Oral Soln) 20 meq 1X ONCE PEG Last administered on 13:13; Start 08/18/16 at 13:00; Stop 08/18/16 at 13:10; Status DC Acetaminophen/ Hydrocodone Bitart (Lortab 7.5-325/ 15ml Oral Solution) 10 ml PRN Q6HRS PRN NG MODERATE TO SEVERE PAIN Last administered on 08/22/16 12:55; Start 08/19/16 at 15:15; Stop 08/22/16 at 13:26; Status DC Levetiracetam (Keppra) 125 mg BID PO Last administered on 08/21/16 08:08; Start 08/19/16 at 21:00; Stop 08/21/16 at 09:03; Status DC Levetiracetam (Keppra) 125 mg BID PO Last administered on 08/22/16 09:40; Start 08/21/16 at 21:00; Stop 08/22/16 at 17:03; Status DC Acetaminophen/ Hydrocodone Bitart (Lortab 7.5-325/ 15ml Oral Solution) 10 ml PRN Q4HRS PRN NG MODERATE TO SEVERE PAIN; Start 08/22/16 at 15:15 Amino Acids/ Glycerin/ Electrolytes 1,000 ml @ 75 mls/hr [id number] IV Last administered on 08/23/16 03:45; Start 08/22/16 at 17:00 Levetiracetam 125 mg/Sodium Chloride 101.25 ml @ 400 mls/ hr Q12HR IV Last administered on 08/23/16 09:52; Start 08/22/16 at 21:00 Morphine Sulfate 2 mg PRN Q2HR PRN IV PAIN Last administered on 08/23/16 07:18 ; Start 08/22/16 at 18:15; Stop 08/23/16 at 09:39; Status DC Morphine Sulfate 4 mg PRN Q2HR PRN IV PAIN; Start 08/23/16 at 09:45 Fentanyl Citrate (Fentanyl 2ml Vial) 75 mcg 1X ONCE IV Last administered on 09:53; Start 08/23/16 at 09:45; Stop 08/23/16 at 09:49; Status DC Active Scripts Active Lactulose 20 Gm/30 Ml Solution 20 Gm PO QODAY Ativan (Lorazepam) 0.5 Mg Tablet 0.5 Mg PO BID Diltiazem 24HR Cd (Diltiazem Hcl) 240 Mg Cap.er.24h 240 Mg PO DAILY Vitamin B-1 (Thiamine Hcl) 100 Mg Tablet 100 Mg PO DAILY [place]hiss 5-325 Tablet (Acetaminophen/Hydrocodone Bitart) 1 Each Tablet 1 Tab PO PRN Q6HRS PRN Reported Omeprazole 20 Mg Capsule.dr 20 Mg PO DAILY Zofran Odt (Ondansetron) 8 Mg Tab.rapdis 1 Tab PO PRN Q8HRS PRN Bunavail 4.2-0.7 mg Film (Buprenorphine HCl/Naloxone HCl) 1 Each Film 1 Each BC DAILY Vitals/I & O Vital Sign - Last 24 Hours 08/22/16 08/22/16 08/22/16 08/22/16 10:45 11:53 12:26 12:55 Temp 98.8 98.8 Pulse 63 63 Resp 18 18 B/P (MAP) 128/82 (97) 128/82 Pulse Ox 98 97 O2 Delivery Room Air Room Air Room Air 08/22/16 08/22/16 08/22/16 08/22/16 14:35 18:15 19:00 19:19 Temp 98.8 97.9 98.8 97.9 Pulse 67 61 Resp 18 18 18 B/P (MAP) 122/78 (93) 88/55 (66) Pulse Ox 98 99 96 O2 Delivery Room Air Room Air Room Air Room Air 08/22/16 08/22/16 08/22/16 08/23/16 20:00 21:34 22:06 00:00 Temp 97.7 97.7 Pulse 63 63 Resp 18 B/P (MAP) 113/79 (90) 113/79 Pulse Ox 96 98 O2 Delivery Room Air Room Air Room Air O2 Flow Rate 3.5 3.5 08/23/16 08/23/16 08/23/16 08/23/16 02:25 02:36 05:15 06:55 Temp 97.9 97.5 97.9 97.5 Pulse 76 76 79 Resp 18 20 18 B/P (MAP) 127/86 (100) 127/86 113/73 (86) Pulse Ox 97 97 99 O2 Delivery Room Air Room Air Room Air O2 Flow Rate 3.5 08/23/16 08/23/16 08/23/16 08/23/16 07:17 07:18 07:48 08:05 Resp 16 O2 Delivery Room Air Room Air Room Air Room Air 08/23/16 09:53 Resp 16 O2 Delivery Room Air Intake and Output 08/22/16 08/22/16 08/23/16 14:59 22:59 06:59 Intake Total 500 ml 101.25 ml 0 ml Output Total 200 ml 200 ml Balance 300 ml 101.25 ml -200 ml Nutrition Consultation Dietary Evaluation: Comments: Rec. continue the TF's until able to pass speech evaluation, may take up to another 10-14 days which is appropriate to contine NG Tf up to total of ~30 days short term Expected Outcomes/Goals: tolerate TF's at goal rate - goal ongoing diet adv Malnutrition Findings: Food and Nutrition Intake (Mod: <75% est energy req 7days Body Fat Depletion (Non Severe: Mod to Severe Reduced Retirement Manager Strength: N/A Reduced Retirement Manager Strength (Non-Sev: N/A Weight Status: Underweight Fluid Accumulation (N/A): N/A WILDER BRYANT MD Aug 23, 2016 10:13
--- NOTE | 2016-08-23 14:32 | PDOC ---
Objective: Objective: Working w/ [employer] when I stopped by. D/w RN - pulled Dobhoff, refused replacement. No confusion. Vital Signs: Vital Signs Date Time Temp Pulse Resp B/P (MAP) Pulse Ox O2 Delivery O2 Flow Rate FiO2 08/23/16 13:26 18 Room Air 08/23/16 10:00 97.9 73 100/69 (79) 97 97.9 08/23/16 02:36 3.5 Labs: Laboratory Tests Test 08/22/16 20:40 Ammonia < 10 mcmol/L PE: GEN: NAD, working w/ PT NEURO/PSYCH: A & O 3 A/P: Alcoholism Hep C Encephalopathy - improved, on Xifaxan Dysphagia - pulled Dobhoff -- Has refused replacement of feeding tube. Await [employer] re-eval. Poor PEG candidate. CHEN LAURENT Aug 23, 2016 14:32
[2016-08-23 15:00] VITALS: BP 104/73
--- NOTE | 2016-08-23 15:34 | PDOC ---
SUBJECTIVE Subjective chronic low back pain OBJECTIVE Objective 65yo C/O chronic low back pain Vital Signs Vital Signs Date Time Temp Pulse Resp B/P (MAP) Pulse Ox O2 Delivery O2 Flow Rate FiO2 08/23/16 15:04 Room Air 08/23/16 13:56 16 Room Air 08/23/16 13:26 18 Room Air 08/23/16 12:08 Room Air 08/23/16 10:23 16 Room Air 08/23/16 10:00 97.9 73 18 100/69 (79) 97 Room Air 97.9 08/23/16 09:53 16 Room Air 08/23/16 08:05 Room Air 08/23/16 07:48 16 Room Air 08/23/16 07:18 Room Air 08/23/16 07:17 Room Air 08/23/16 06:55 97.5 79 18 113/73 (86) 99 Room Air 97.5 08/23/16 05:15 76 127/86 08/23/16 02:36 20 97 Room Air 3.5 08/23/16 02:25 97.9 76 18 127/86 (100) 97 Room Air 97.9 08/23/16 00:00 63 113/79 08/22/16 22:06 97.7 63 18 113/79 (90) 98 Room Air 97.7 08/22/16 21:34 96 Room Air 3.5 08/22/16 20:00 Room Air 3.5 08/22/16 19:19 96 Room Air 08/22/16 19:00 97.9 61 18 88/55 (66) 99 Room Air 97.9 08/22/16 18:15 18 Room Air I & O Intake and Output 08/23/16 07:00 Intake Total 601.25 ml Output Total 400 ml Balance 201.25 ml Intake Oral 0 ml IV Total 101.25 ml Tube Feeding 140 ml Other 360 ml Output Urine Total 400 ml # Voids 7 ASSESSMENT/PLAN Assessment/Plan 65yo male with history of chronic pain-low back. Taking hydrocodone p.o. PRN Alcohol and illegal substance use MRI unremarkable L-spine REC: Aggressive physical rehab/PT; addition of duragesic patch-25mcg, maintain PRN hydrocodone via feeding tube or p.o. Problems: COMMENT Lab Laboratory Tests Test 08/22/16 20:40 Ammonia < 10 mcmol/L (11-34) CATRACHO GODFREY MD Aug 23, 2016 15:34
[2016-08-23] MEDS: ENOXAPARIN 40 MG/0.4 ML SYRINGE. SQ SCH (15:36)
[2016-08-23 19:00] VITALS: BP 119/90
[2016-08-23 22:45] VITALS: BP 92/63
[2016-08-24] MEDS: MORPHINE SULFATE 2 MG/ML DISP.SYRIN. IV PRN ×6 (01:10→18:31)
[2016-08-24 03:00] VITALS: BP 107/74
[2016-08-24] MEDS: dilTIAZem HCL 30 MG TABLET PO SCH ×5 (04:23→23:57)
[2016-08-24] MEDS: AMINO AC 3%/ELECTROLYTE/GLYCER 1,000 ML IV SCH ×2 (04:58→20:59)
[2016-08-24 06:31] LABS: BASO # 0.1 x10^3/uL (0.0-0.2); BASO % 1 % (0-3); EOS % 2 % (0-3); HEMATOCRIT 37.6 % (39.0-53.0); HEMOGLOBIN 12.6 g/dL (13.0-17.5); LYMPH # 2.6 x10^3/uL (1.0-4.8); LYMPH % 32 % (24-48); MEAN CORPUSCULAR HEMOGLOBIN 33 pg (25-35); MEAN CORPUSCULAR HGB CONC 34 g/dL (31-37); MEAN CORPUSCULAR VOLUME 97 fL (79-100); MONO % 8 % (0-9); NEUT % 57 % (31-73); PLATELET COUNT 898 x10^3/uL (140-400); RED BLOOD COUNT 3.86 x10^6/uL (4.30-5.70); RED CELL DISTRIBUTION WIDTH 13.5 % (11.5-14.5)
[2016-08-24 06:53] LABS: ALBUMIN 2.9 g/dL (3.4-5.0); ALBUMIN/GLOBULIN RATIO 0.6 (1.0-1.7); CALCIUM 9.3 mg/dL (8.5-10.1); CREATININE 0.7 mg/dL (0.7-1.3); GFR 113.5; POTASSIUM 4.1 mmol/L (3.5-5.1); TOTAL BILIRUBIN 0.5 mg/dL (0.2-1.0); TOTAL PROTEIN 7.6 g/dL (6.4-8.2)
[2016-08-24 07:00] VITALS: BP 103/73
[2016-08-24] MEDS: ASPIRIN 325 MG TABLET FT SCH (08:00)
[2016-08-24] MEDS: IPRATROPIUM BROMIDE 0.5 MG/2.5 ML NEBU. NEB SCH ×4 (08:11→19:29)
[2016-08-24] MEDS: LEVETIRACETAM IV SCH ×2 (08:19→20:58)
[2016-08-24] MEDS: NORMAL SALINE IV SCH ×2 (08:19→20:58)
[2016-08-24] MEDS: THIAMINE 100 MG TABLET. PO SCH (09:00)
[2016-08-24] MEDS: rifAXIMin 550 MG TABLET PO SCH ×2 (09:00→20:47)
[2016-08-24] MEDS: LANSOPRAZOLE 30 MG TAB.RAP.DR FT SCH (09:00)
[2016-08-24] MEDS: POTASSIUM CHLORIDE 20 MEQ/15 ML ORAL LIQUID. PEG SCH (09:00)
--- NOTE | 2016-08-24 10:05 | PDOC ---
Subjective: Subjective: Wants to go home. Objective: Vital Signs: Vital Signs Date Time Temp Pulse Resp B/P (MAP) Pulse Ox O2 Delivery O2 Flow Rate FiO2 08/24/16 09:01 18 97 Room Air 3.5 08/24/16 07:00 97.7 18 103/73 (83) 97.7 Labs: Laboratory Tests Test 08/24/16 04:45 White Blood Count 8.0 x10^3/uL Red Blood Count 3.86 x10^6/uL Hemoglobin 12.6 g/dL Hematocrit 37.6 % Mean Corpuscular Volume 97 fL Mean Corpuscular Hemoglobin 33 pg Mean Corpuscular Hemoglobin Concent 34 g/dL Red Cell Distribution Width 13.5 % Platelet Count 898 x10^3/uL Neutrophils (%) (Auto) 57 % Lymphocytes (%) (Auto) 32 % Monocytes (%) (Auto) 8 % Eosinophils (%) (Auto) 2 % Basophils (%) (Auto) 1 % Neutrophils # (Auto) 4.6 x10^3uL Lymphocytes # (Auto) 2.6 x10^3/uL Monocytes # (Auto) 0.7 x10^3/uL Eosinophils # (Auto) 0.1 x10^3/uL Basophils # (Auto) 0.1 x10^3/uL Sodium Level 138 mmol/L Potassium Level 4.1 mmol/L Chloride Level 101 mmol/L Carbon Dioxide Level 27 mmol/L Anion Gap 10 Blood Urea Nitrogen 21 mg/dL Creatinine 0.7 mg/dL Estimated GFR (Cockcroft-Gault) 113.5 BUN/Creatinine Ratio 30 Glucose Level 88 mg/dL Calcium Level 9.3 mg/dL Total Bilirubin 0.5 mg/dL Aspartate Amino Transf (AST/SGOT) 17 U/L Alanine Aminotransferase (ALT/SGPT) 38 U/L Alkaline Phosphatase 118 U/L Total Protein 7.6 g/dL Albumin 2.9 g/dL Albumin/Globulin Ratio 0.6 PE: GEN: NAD, thin, voice raspy LUNGS: CTAB HEART: RRR ABD: NABS, S/ND/NT NEURO/PSYCH: A & O 3 A/P: Alcoholism Hep C Encephalopathy - improved, on Xifaxan (lactulose previously stopped 2/2 diarrhea ) Dysphagia - refusing Dobhoff, etc. -- D/w RN and Dr. Brennan. Still failing swallow evals. He wants to go home, refusing tube feeds. No plans for PEG, poor candidate. ?palliative care CHEN LAURENT Aug 24, 2016 10:05
--- NOTE | 2016-08-24 10:16 | PDOC ---
PROGRESS NOTES Assessment Problems Medical Problems: (1) Alcohol withdrawal Status: Acute (2) Hepatic encephalopathy Status: Acute (3) Lactic acid acidosis Status: Acute (4) Respiratory failure Status: Acute Seizure x 2 on 08/08/16, alcohol related. Metabolic encephalopathy. Tiny right frontal and parietal junction infract, asymptomatic, incidental finding. Dysphagia Plan Stop Keppra after tomorrow AM dose Needs PEG, refuses, GI says he's a poor PEG candidate Subjective no complaints Objective Vital Signs Date Time Temp Pulse Resp B/P (MAP) Pulse Ox O2 Delivery O2 Flow Rate FiO2 08/24/16 09:01 18 97 Room Air 3.5 08/24/16 07:00 97.7 18 103/73 (83) 97.7 Intake and Output 08/24/16 07:00 Intake Total 0 ml Output Total 1500 ml Balance -1500 ml Intake Oral 0 ml Output Urine Total 1500 ml # Voids 3 PHYSICAL EXAM Alert. Oriented to time, place and person. PERRL. EOMI. CN: no focal findings. Muscle tone: normal. Muscle strength: 5-/5 DTR: 2+ Plantar reflex: flexor Gait: not examined in bed. Sensory exam: no abnormal findings. No cerebellar signs elicited. Review of Relevant I have reviewed the following items chikis (where applicable) has been applied. Labs Laboratory Tests Test 08/22/16 20:40 08/24/16 04:45 Ammonia < 10 mcmol/L (11-34) White Blood Count 8.0 x10^3/uL (4.0-11.0) Red Blood Count 3.86 x10^6/uL (4.30-5.70) Hemoglobin 12.6 g/dL (13.0-17.5) Hematocrit 37.6 % (39.0-53.0) Mean Corpuscular Volume 97 fL (79-100) Mean Corpuscular Hemoglobin 33 pg (25-35) Mean Corpuscular Hemoglobin Concent 34 g/dL (31-37) Red Cell Distribution Width 13.5 % (11.5-14.5) Platelet Count 898 x10^3/uL (140-400) Neutrophils (%) (Auto) 57 % (31-73) Lymphocytes (%) (Auto) 32 % (24-48) Monocytes (%) (Auto) 8 % (0-9) Eosinophils (%) (Auto) 2 % (0-3) Basophils (%) (Auto) 1 % (0-3) Neutrophils # (Auto) 4.6 x10^3uL (1.8-7.7) Lymphocytes # (Auto) 2.6 x10^3/uL (1.0-4.8) Monocytes # (Auto) 0.7 x10^3/uL (0.0-1.1) Eosinophils # (Auto) 0.1 x10^3/uL (0.0-0.7) Basophils # (Auto) 0.1 x10^3/uL (0.0-0.2) Sodium Level 138 mmol/L (136-145) Potassium Level 4.1 mmol/L (3.5-5.1) Chloride Level 101 mmol/L (98-107) Carbon Dioxide Level 27 mmol/L (21-32) Anion Gap 10 (6-14) Blood Urea Nitrogen 21 mg/dL (8-26) Creatinine 0.7 mg/dL (0.7-1.3) Estimated GFR (Cockcroft-Gault) 113.5 BUN/Creatinine Ratio 30 (6-20) Glucose Level 88 mg/dL (70-99) Calcium Level 9.3 mg/dL (8.5-10.1) Total Bilirubin 0.5 mg/dL (0.2-1.0) Aspartate Amino Transf (AST/SGOT) 17 U/L (15-37) Alanine Aminotransferase (ALT/SGPT) 38 U/L (16-63) Alkaline Phosphatase 118 U/L (46-116) Total Protein 7.6 g/dL (6.4-8.2) Albumin 2.9 g/dL (3.4-5.0) Albumin/Globulin Ratio 0.6 (1.0-1.7) Laboratory Tests Test 08/24/16 04:45 White Blood Count 8.0 x10^3/uL (4.0-11.0) Red Blood Count 3.86 x10^6/uL (4.30-5.70) Hemoglobin 12.6 g/dL (13.0-17.5) Hematocrit 37.6 % (39.0-53.0) Mean Corpuscular Volume 97 fL (79-100) Mean Corpuscular Hemoglobin 33 pg (25-35) Mean Corpuscular Hemoglobin Concent 34 g/dL (31-37) Red Cell Distribution Width 13.5 % (11.5-14.5) Platelet Count 898 x10^3/uL (140-400) Neutrophils (%) (Auto) 57 % (31-73) Lymphocytes (%) (Auto) 32 % (24-48) Monocytes (%) (Auto) 8 % (0-9) Eosinophils (%) (Auto) 2 % (0-3) Basophils (%) (Auto) 1 % (0-3) Neutrophils # (Auto) 4.6 x10^3uL (1.8-7.7) Lymphocytes # (Auto) 2.6 x10^3/uL (1.0-4.8) Monocytes # (Auto) 0.7 x10^3/uL (0.0-1.1) Eosinophils # (Auto) 0.1 x10^3/uL (0.0-0.7) Basophils # (Auto) 0.1 x10^3/uL (0.0-0.2) Sodium Level 138 mmol/L (136-145) Potassium Level 4.1 mmol/L (3.5-5.1) Chloride Level 101 mmol/L (98-107) Carbon Dioxide Level 27 mmol/L (21-32) Anion Gap 10 (6-14) Blood Urea Nitrogen 21 mg/dL (8-26) Creatinine 0.7 mg/dL (0.7-1.3) Estimated GFR (Cockcroft-Gault) 113.5 BUN/Creatinine Ratio 30 (6-20) Glucose Level 88 mg/dL (70-99) Calcium Level 9.3 mg/dL (8.5-10.1) Total Bilirubin 0.5 mg/dL (0.2-1.0) Aspartate Amino Transf (AST/SGOT) 17 U/L (15-37) Alanine Aminotransferase (ALT/SGPT) 38 U/L (16-63) Alkaline Phosphatase 118 U/L (46-116) Total Protein 7.6 g/dL (6.4-8.2) Albumin 2.9 g/dL (3.4-5.0) Albumin/Globulin Ratio 0.6 (1.0-1.7) Microbiology 08/11/16 Blood Culture - Final, Complete NO GROWTH AFTER 5 DAYS 08/11/16 Urine Culture - Final, Complete 08/11/16 Urine Culture Result 1 (JENNY) - Final, Complete 08/11/16 Antimicrobic Susceptibility - Final, Complete Medications Current Medications Diltiazem HCl (Cardizem) 25 mg STK-MED ONCE .ROUTE ; Start 08/08/16 at 10:37; Stop 08/08/16 at 10:38; Status DC Diltiazem HCl 125 mg/Dextrose 125 ml @ 0 mls/hr CONT PRN IV SEE I/O RECORD Last administered on 08/12/16 06:20; Start 08/08/16 at 11:00; Stop 08/12/16 at 12:30; Status DC Diltiazem HCl (Cardizem) 20 mg 1X ONCE IVP Last administered on 08/08/16 10: 40; Start 08/08/16 at 11:00; Stop 08/08/16 at 11:01; Status DC Lorazepam (Ativan) 2 mg STK-MED ONCE .ROUTE ; Start 08/08/16 at 10:55; Stop 01/14 at 10:56; Status DC Iohexol (Omnipaque 350 Mg/ml) 90 ml 1X ONCE IV Last administered on 08/08/16 11:15; Start 08/08/16 at 11:15; Stop 08/08/16 at 11:16; Status DC Propofol 20 ml @ 0 mls/hr 1X ONCE IV Last administered on 08/08/16 11:20; Start 08/08/16 at 11:15; Stop 08/08/16 at 11:16; Status DC Info (Do NOT chart on this entry -- for MONITORING) 1 each PRN DAILY PRN MC SEE COMMENTS; Start 08/08/16 at 11:15; Stop 08/10/16 at 09:37; Status DC Fentanyl Citrate (Fentanyl 2ml Vial) 100 mcg 1X ONCE IV Last administered on 11:03; Start 08/08/16 at 11:15; Stop 08/08/16 at 11:16; Status DC Fentanyl Citrate (Fentanyl 2ml Vial) 100 mcg 1X ONCE IV Last administered on 11:16; Start 08/08/16 at 11:15; Stop 08/08/16 at 11:16; Status DC Propofol 50 ml @ As Directed STK-MED ONCE IV ; Start 08/08/16 at 11:17; Stop 01/14 at 11:18; Status DC Ondansetron HCl (Zofran) 4 mg PRN Q8HRS PRN IV NAUSEA/VOMITING; Start 08/08/16 at 11:30; Stop 08/09/16 at 11:29; Status DC Fentanyl Citrate (Fentanyl 2ml Vial) 50 mcg PRN Q2HR PRN IV PAIN Last administered on 08/08/16 13:16; Start 08/08/16 at 11:30; Stop 08/09/16 at 11:29 ; Status DC Levetiracetam 1000 mg/Sodium Chloride 110 ml @ 440 mls/hr 1X ONCE IV Last administered on 08/08/16 11:39; Start 08/08/16 at 11:45; Stop 08/08/16 at 11:59 ; Status DC Fentanyl Citrate (Fentanyl 2ml Vial) 100 mcg 1X ONCE IV ; Start 08/08/16 at 11: 45; Stop 08/08/16 at 11:46; Status DC Propofol 50 ml @ As Directed STK-MED ONCE IV ; Start 08/08/16 at 12:09; Stop 01/14 at 12:10; Status DC Lorazepam (Ativan) 2 mg 1X ONCE IV ; Start 08/08/16 at 13:00; Stop 08/08/16 at 13:01; Status DC Succinylcholine Chloride (Anectine) 100 mg 1X ONCE IV ; Start 08/08/16 at 13:00 ; Stop 08/08/16 at 13:01; Status DC Etomidate (Amidate) 20 mg 1X ONCE IV ; Start 08/08/16 at 13:00; Stop 08/08/16 at 13:01; Status DC Propofol 100 ml @ 0 mls/hr CONT PRN IV PER PROTOCOL Last administered on 09:08; Start 08/08/16 at 13:45; Stop 08/11/16 at 10:11; Status DC Fentanyl Citrate (Fentanyl 2ml Vial) 50 mcg PRN Q1HR PRN IV COMM Last administered on 08/19/16 15:12; Start 08/08/16 at 13:45; Stop 08/19/16 at 15:17 ; Status DC Chlorhexidine Gluconate (Peridex) 15 ml BID MM Last administered on 08/09/16 09:08; Start 08/08/16 at 21:00; Stop 08/10/16 at 08:29; Status DC Ipratropium [place] (Atrovent) 0.5 mg RTQID NEB Last administered on 08/24/16 08:11; Start 08/08/16 at 16:00 Metoprolol Tartrate (Lopressor) 12.5 mg BID PO Last administered on 08/08/16 21:51; Start 08/08/16 at 14:30; Stop 08/10/16 at 09:48; Status DC Lorazepam (Ativan) 1 mg PRN Q4HRS PRN IV ANXIETY / AGITATION Last administered on 08/16/16 21:25; Start 08/08/16 at 14:45; Stop 08/20/16 at 12:24; Status DC Levetiracetam (Keppra) 500 mg Q12HR PO Last administered on 08/15/16 21:30; Start 08/08/16 at 21:00; Stop 08/16/16 at 17:14; Status DC Multivitamins 10 ml/Folic Acid 1 mg/Thiamine HCl 100 mg/Sodium Chloride 1,011.2 ml @ 100 mls/ hr Q24H IV Last administered on 08/17/16 16:12; Start 08/08/16 at 16:00; Stop 08/17/16 at 16:20; Status DC Lorazepam (Ativan) 2 mg PRN Q4HRS PRN IV ANXIETY / AGITATION Last administered on 08/10/16 11:11; Start 08/08/16 at 15:15; Stop 08/13/16 at 11:08; Status DC Aspirin (Zunilda Aspirin) 325 mg DAILY PO Last administered on 08/09/16 09:09; Start 08/09/16 at 09:00; Stop 08/10/16 at 09:48; Status DC Diltiazem HCl (Cardizem 24hr Cd) 240 mg DAILY PO ; Start 08/09/16 at 09:00; Stop 08/10/16 at 09:48; Status DC Lactulose 20 gm Q48H PO Last administered on 08/09/16 09:13; Start 08/09/16 at 09:00; Stop 08/09/16 at 16:32; Status DC Pantoprazole Sodium (Protonix) 40 mg DAILYAC PO ; Start 08/09/16 at 07:30; Stop 08/09/16 at 09:36; Status DC Non-Formulary Medication 100 mg DAILY PO Last administered on 08/13/16 10:02; Start 08/09/16 at 09:00; Stop 08/13/16 at 11:09; Status UNV Pantoprazole Sodium (Protonix Vial) 40 mg DAILYAC IVP Last administered on 08/18 09:24; Start 08/09/16 at 10:00; Stop 08/18/16 at 10:07; Status DC Iohexol (Omnipaque 300 Mg/ml) 75 ml 1X ONCE IV ; Start 08/09/16 at 14:00; Stop 08/09/16 at 14:01; Status DC Info (Do NOT chart on this entry -- for MONITORING) 1 each PRN DAILY PRN MC SEE COMMENTS; Start 08/09/16 at 14:00; Stop 08/11/16 at 13:59; Status DC Lactulose 20 gm BID PO Last administered on 08/11/16 10:27; Start 08/09/16 at 21:00; Stop 08/11/16 at 10:52; Status DC Lorazepam (Ativan) 2 mg PRN Q1HR PRN IV For CIWA 8-14 Last administered on 08/22 14:03; Start 08/09/16 at 20:45 Lorazepam (Ativan) 4 mg PRN Q1HR PRN IV For CIWA 15 or greater Last administered on 08/23/16 05:02; Start 08/09/16 at 20:45 Haloperidol Lactate (Haldol) 5 mg PRN Q4HRS PRN IVP Hallucinatns,Confusn, Delirium Last administered on 08/10/16 12:29; Start 08/09/16 at 20:45; Stop at 10:11; Status DC Metoprolol Tartrate (Lopressor) 5 mg PRN Q4HRS PRN IVP ELEVATED BP, SEE COMMENTS Last administered on 08/10/16 02:49; Start 08/09/16 at 22:15; Stop at 09:48; Status DC Diltiazem HCl (Cardizem) 5 mg 1X ONCE IVP Last administered on 08/10/16 08:22 ; Start 08/10/16 at 08:15; Stop 08/10/16 at 08:16; Status DC Metoprolol Tartrate (Lopressor) 5 mg Q6HRS PRN IVP ELEVATED BP, SEE COMMENTS; Start 08/10/16 at 09:45; Stop 08/10/16 at 10:05; Status DC Aspirin (Aspirin) 300 mg DAILY PA Last administered on 08/12/16 08:21; Start 08/10/16 at 09:45; Stop 08/12/16 at 11:14; Status DC Magnesium Sulfate/ Dextrose 50 ml @ 25 mls/hr 1X ONCE IV Last administered on 08/10/16 10:56; Start 08/10/16 at 10:00; Stop 08/10/16 at 11:59; Status DC Metoprolol Tartrate (Lopressor) 5 mg Q6HRS IVP Last administered on 08/12/16 05:00; Start 08/10/16 at 10:15; Stop 08/12/16 at 11:14; Status DC Enoxaparin Sodium (Lovenox 30mg Syringe) 30 mg Q24H SQ ; Start 08/10/16 at 15:00 ; Stop 08/10/16 at 15:00; Status DC Enoxaparin Sodium (Lovenox 40mg Syringe) 40 mg Q24H SQ Last administered on 15:36; Start 08/10/16 at 15:00 Acetaminophen (Tylenol) 650 mg PRN Q6HRS PRN PEG MILD PAIN / TEMP Last administered on 08/19/16 21:13; Start 08/10/16 at 23:45 Succinylcholine Chloride (Anectine) 200 mg STK-MED ONCE .ROUTE ; Start 08/11/16 at 01:30; Stop 08/11/16 at 01:31; Status DC Succinylcholine Chloride (Anectine) 200 mg STK-MED ONCE .ROUTE ; Start 08/11/16 at 01:30; Stop 08/11/16 at 08:48; Status DC Haloperidol Lactate (Haldol) 2.5 mg PRN Q4HRS PRN IVP Hallucinatns,Confusn, Delirium; Start 08/11/16 at 10:15 Potassium Chloride (KCl Oral Soln) 40 meq 1X ONCE PEG Last administered on 10:30; Start 08/11/16 at 10:30; Stop 08/11/16 at 10:31; Status DC Potassium Chloride (KCl Oral Soln) 40 meq 1X ONCE PEG Last administered on 16:00; Start 08/11/16 at 15:00; Stop 08/11/16 at 15:01; Status DC Digoxin (Lanoxin) 500 mcg 1X ONCE IV Last administered on 08/11/16 10:30; Start 08/11/16 at 10:30; Stop 08/11/16 at 10:31; Status DC Lactulose 20 gm QD PO Last administered on 08/14/16 09:54; Start 08/12/16 at 09:00; Stop 08/15/16 at 11:50; Status DC Phenylephrine HCl 20 mg/Sodium Chloride 252 ml @ 0 mls/hr 1X ONCE IV ; Start at 14:30; Stop 08/11/16 at 14:31; Status Cancel Magnesium Sulfate/ Dextrose 50 ml @ 25 mls/hr 1X ONCE IV Last administered on 08/12/16 09:32; Start 08/12/16 at 09:00; Stop 08/12/16 at 10:59; Status DC Magnesium Sulfate/ Dextrose 50 ml @ 25 mls/hr 1X ONCE IV Last administered on 08/12/16 17:56; Start 08/12/16 at 16:00; Stop 08/12/16 at 17:59; Status DC Potassium Chloride (KCl Oral Soln) 20 meq BID PEG Last administered on 21:52; Start 08/12/16 at 11:15; Stop 08/13/16 at 09:46; Status DC Diltiazem HCl (Cardizem) 60 mg Q6HRS PO Last administered on 08/22/16 12:26; Start 08/12/16 at 11:30 Metoprolol Tartrate (Lopressor) 25 mg BID FT Last administered on 08/12/16 21: 53; Start 08/12/16 at 21:00; Stop 08/13/16 at 09:46; Status DC Aspirin (Zunilda Aspirin) 325 mg [id number] FT Last administered on 08/22/16 09: 38; Start 08/13/16 at 08:00 Ceftriaxone Sodium 1 gm/ Sodium Chloride 50 ml @ 100 mls/hr Q24H IV Last administered on 08/16/16 17:51; Start 08/12/16 at 17:00; Stop 08/17/16 at 10:33 ; Status DC Metoprolol Tartrate (Lopressor) 50 mg BID FT Last administered on 08/22/16 09: 39; Start 08/13/16 at 10:00; Stop 08/23/16 at 10:06; Status DC Potassium Chloride (KCl Oral Soln) 20 meq TID PEG Last administered on 21:33; Start 08/13/16 at 10:00; Stop 08/23/16 at 10:07; Status DC Magnesium Sulfate/ Dextrose 50 ml @ 25 mls/hr 1X ONCE IV Last administered on 08/13/16 11:26; Start 08/13/16 at 10:00; Stop 08/13/16 at 11:59; Status DC Potassium Chloride (Klor-Con) 40 meq 1X ONCE PO ; Start 08/15/16 at 14:00; Stop 08/15/16 at 14:01; Status DC Barium Sulfate (Varibar Thin Liquid [place]) 148 gm 1X ONCE PO Last administered on 08/16/16 12:55; Start 08/16/16 at 12:00; Stop 08/16/16 at 12:01 ; Status DC Levetiracetam (Keppra) 250 mg Q12HR PO Last administered on 08/19/16 08:56; Start 08/16/16 at 21:00; Stop 08/19/16 at 16:31; Status DC Rifaximin (Xifaxan) 550 mg Q12HR PO Last administered on 08/22/16 09:38; Start 08/17/16 at 13:30 Thiamine Mononitrate (Vitamin B-1) 100 mg DAILY PO Last administered on 09:40; Start 08/17/16 at 17:00 Potassium Chloride (Klor-Con) 40 meq 1X ONCE PO ; Start 08/18/16 at 09:45; Stop 08/18/16 at 09:46; Status Cancel Lansoprazole (Prevacid) 30 mg DAILY FT Last administered on 08/22/16 09:40; Start 08/19/16 at 09:00 Potassium Chloride (KCl Oral Soln) 20 meq 1X ONCE PEG Last administered on 13:13; Start 08/18/16 at 13:00; Stop 08/18/16 at 13:10; Status DC Acetaminophen/ Hydrocodone Bitart (Lortab 7.5-325/ 15ml Oral Solution) 10 ml PRN Q6HRS PRN NG MODERATE TO SEVERE PAIN Last administered on 08/22/16 12:55; Start 08/19/16 at 15:15; Stop 08/22/16 at 13:26; Status DC Levetiracetam (Keppra) 125 mg BID PO Last administered on 08/21/16 08:08; Start 08/19/16 at 21:00; Stop 08/21/16 at 09:03; Status DC Levetiracetam (Keppra) 125 mg BID PO Last administered on 08/22/16 09:40; Start 08/21/16 at 21:00; Stop 08/22/16 at 17:03; Status DC Acetaminophen/ Hydrocodone Bitart (Lortab 7.5-325/ 15ml Oral Solution) 10 ml PRN Q4HRS PRN NG MODERATE TO SEVERE PAIN; Start 08/22/16 at 15:15 Amino Acids/ Glycerin/ Electrolytes 1,000 ml @ 75 mls/hr [id number] IV Last administered on 08/24/16 04:58; Start 08/22/16 at 17:00 Levetiracetam 125 mg/Sodium Chloride 101.25 ml @ 400 mls/ hr Q12HR IV Last administered on 08/24/16 08:19; Start 08/22/16 at 21:00 Morphine Sulfate 2 mg PRN Q2HR PRN IV PAIN Last administered on 08/23/16 07:18 ; Start 08/22/16 at 18:15; Stop 08/23/16 at 09:39; Status DC Morphine Sulfate 4 mg PRN Q2HR PRN IV PAIN Last administered on 08/24/16 09:01 ; Start 08/23/16 at 09:45 Fentanyl Citrate (Fentanyl 2ml Vial) 75 mcg 1X ONCE IV Last administered on 09:53; Start 08/23/16 at 09:45; Stop 08/23/16 at 09:49; Status DC Potassium Chloride (KCl Oral Soln) 20 meq DAILY PEG ; Start 08/24/16 at 09:00 Active Scripts Active Lactulose 20 Gm/30 Ml Solution 20 Gm PO QODAY Ativan (Lorazepam) 0.5 Mg Tablet 0.5 Mg PO BID Diltiazem 24HR Cd (Diltiazem Hcl) 240 Mg Cap.er.24h 240 Mg PO DAILY Vitamin B-1 (Thiamine Hcl) 100 Mg Tablet 100 Mg PO DAILY [place] 5-325 Tablet (Acetaminophen/Hydrocodone Bitart) 1 Each Tablet 1 Tab PO PRN Q6HRS PRN Reported Omeprazole 20 Mg Capsule.dr 20 Mg PO DAILY Zofran Odt (Ondansetron) 8 Mg Tab.rapdis 1 Tab PO PRN Q8HRS PRN [place] 4.2-0.7 mg Film (Buprenorphine HCl/Naloxone HCl) 1 Each Film 1 Each BC DAILY Vitals/I & O Vital Sign - Last 24 Hours 08/23/16 08/23/16 08/23/16 08/23/16 10:23 12:08 13:26 13:56 Resp 16 18 16 O2 Delivery Room Air Room Air Room Air 08/23/16 08/23/16 08/23/16 08/23/16 15:00 15:04 17:04 17:41 Temp 97.9 97.9 Pulse 113 113 Resp 18 B/P (MAP) 104/73 (83) 104/73 Pulse Ox 99 99 O2 Delivery Room Air Room Air O2 Flow Rate 3.5 08/23/16 08/23/16 08/23/16 08/23/16 19:00 19:54 20:00 21:19 Temp 96.8 96.8 Pulse 61 Resp 16 B/P (MAP) 119/90 (100) Pulse Ox 87 97 97 O2 Delivery Room Air Room Air Room Air 08/23/16 08/24/16 08/24/16 08/24/16 22:45 01:10 03:00 04:57 Temp 97.3 97.9 97.3 97.9 Pulse 62 93 Resp 18 18 B/P (MAP) 92/63 (73) 107/74 (85) Pulse Ox 96 97 O2 Delivery Room Air Room Air Room Air Room Air 08/24/16 08/24/16 08/24/16/27/17 05:29 07:00 08:00 08:12 Temp 97.7 97.7 Pulse 18 Resp 18 B/P (MAP) 103/73 (83) Pulse Ox 97 97 O2 Delivery Room Air Room Air Room Air Room Air O2 Flow Rate 3.5 08/24/16 09:01 Resp 18 Pulse Ox 97 O2 Delivery Room Air O2 Flow Rate 3.5 Intake and Output 08/23/16 08/23/16 08/24/16 15:00 23:00 07:00 Intake Total 0 ml Output Total 450 ml 400 ml 650 ml Balance -450 ml -400 ml -650 ml VALENTINO CABRERA MD Aug 24, 2016 10:16
--- NOTE | 2016-08-24 10:30 | PDOC ---
PROGRESS NOTES Chief Complaint Chief Complaint cc: seizure like activity A/P Acute hypoxic respiratory failure: Extubated 08/09, on NC Hepatic encephalopathy, persistent: Alert but not oriented to time, Possible alcohol withdrawal seizures: on CIWA protocol, prn Ativan, Chronic alcoholism Physical debility and weakness. , Paroxysmal, Afib: on Cardizem, rate controlled. Oropharyngeal dysphagia: , tube feeds. failed speech, Hypokalemia: replaced, Hx hep C Prognosis guarded. PT/OT Disposition: SNU VS ACUTE REHAB History of Present Illness History of Present Illness clear mentally today wants to eat he would like to go home Video swallow failed yesterday DNR status discussed, pt would prefer to be DNR, DNI I discussed with his at length by phone, she is not OK with transition to DNR, would like FULL code, keep in hospital, treat aggressively, she believes he is still very confused and unable to make his own decisions. he is more clear with me today, but will defer to the family, re-eval and discuss in AM, will consult palliative care to follow, no change at this point. Speech therapy to re-eval, maybe q 2 days Vitals Vitals Vital Signs Date Time Temp Pulse Resp B/P (MAP) Pulse Ox O2 Delivery O2 Flow Rate FiO2 08/24/16 09:01 18 97 Room Air 3.5 08/24/16 07:00 97.7 18 103/73 (83) 97.7 Physical Exam General: Alert, Cooperative, No acute distress Heart: Regular rate Lungs: Clear Abdomen: Normal bowel sounds, No tenderness, Other (NG in place) Extremities: No clubbing, No cyanosis, No edema Skin: No significant lesion Labs LABS Laboratory Tests Test 08/24/16 04:45 White Blood Count 8.0 x10^3/uL (4.0-11.0) Red Blood Count 3.86 x10^6/uL (4.30-5.70) Hemoglobin 12.6 g/dL (13.0-17.5) Hematocrit 37.6 % (39.0-53.0) Mean Corpuscular Volume 97 fL (79-100) Mean Corpuscular Hemoglobin 33 pg (25-35) Mean Corpuscular Hemoglobin Concent 34 g/dL (31-37) Red Cell Distribution Width 13.5 % (11.5-14.5) Platelet Count 898 x10^3/uL (140-400) Neutrophils (%) (Auto) 57 % (31-73) Lymphocytes (%) (Auto) 32 % (24-48) Monocytes (%) (Auto) 8 % (0-9) Eosinophils (%) (Auto) 2 % (0-3) Basophils (%) (Auto) 1 % (0-3) Neutrophils # (Auto) 4.6 x10^3uL (1.8-7.7) Lymphocytes # (Auto) 2.6 x10^3/uL (1.0-4.8) Monocytes # (Auto) 0.7 x10^3/uL (0.0-1.1) Eosinophils # (Auto) 0.1 x10^3/uL (0.0-0.7) Basophils # (Auto) 0.1 x10^3/uL (0.0-0.2) Sodium Level 138 mmol/L (136-145) Potassium Level 4.1 mmol/L (3.5-5.1) Chloride Level 101 mmol/L (98-107) Carbon Dioxide Level 27 mmol/L (21-32) Anion Gap 10 (6-14) Blood Urea Nitrogen 21 mg/dL (8-26) Creatinine 0.7 mg/dL (0.7-1.3) Estimated GFR (Cockcroft-Gault) 113.5 BUN/Creatinine Ratio 30 (6-20) Glucose Level 88 mg/dL (70-99) Calcium Level 9.3 mg/dL (8.5-10.1) Total Bilirubin 0.5 mg/dL (0.2-1.0) Aspartate Amino Transf (AST/SGOT) 17 U/L (15-37) Alanine Aminotransferase (ALT/SGPT) 38 U/L (16-63) Alkaline Phosphatase 118 U/L (46-116) Total Protein 7.6 g/dL (6.4-8.2) Albumin 2.9 g/dL (3.4-5.0) Albumin/Globulin Ratio 0.6 (1.0-1.7) Assessment and Plan Assessmemt and Plan Problems Medical Problems: (1) Alcohol withdrawal Status: Acute (2) Hepatic encephalopathy Status: Acute (3) Lactic acid acidosis Status: Acute (4) Respiratory failure Status: Acute Problems: Comment Review of Relevant I have reviewed the following items chikis (where applicable) has been applied. Labs Laboratory Tests Test 08/22/16 20:40 08/24/16 04:45 Ammonia < 10 mcmol/L (11-34) White Blood Count 8.0 x10^3/uL (4.0-11.0) Red Blood Count 3.86 x10^6/uL (4.30-5.70) Hemoglobin 12.6 g/dL (13.0-17.5) Hematocrit 37.6 % (39.0-53.0) Mean Corpuscular Volume 97 fL (79-100) Mean Corpuscular Hemoglobin 33 pg (25-35) Mean Corpuscular Hemoglobin Concent 34 g/dL (31-37) Red Cell Distribution Width 13.5 % (11.5-14.5) Platelet Count 898 x10^3/uL (140-400) Neutrophils (%) (Auto) 57 % (31-73) Lymphocytes (%) (Auto) 32 % (24-48) Monocytes (%) (Auto) 8 % (0-9) Eosinophils (%) (Auto) 2 % (0-3) Basophils (%) (Auto) 1 % (0-3) Neutrophils # (Auto) 4.6 x10^3uL (1.8-7.7) Lymphocytes # (Auto) 2.6 x10^3/uL (1.0-4.8) Monocytes # (Auto) 0.7 x10^3/uL (0.0-1.1) Eosinophils # (Auto) 0.1 x10^3/uL (0.0-0.7) Basophils # (Auto) 0.1 x10^3/uL (0.0-0.2) Sodium Level 138 mmol/L (136-145) Potassium Level 4.1 mmol/L (3.5-5.1) Chloride Level 101 mmol/L (98-107) Carbon Dioxide Level 27 mmol/L (21-32) Anion Gap 10 (6-14) Blood Urea Nitrogen 21 mg/dL (8-26) Creatinine 0.7 mg/dL (0.7-1.3) Estimated GFR (Cockcroft-Gault) 113.5 BUN/Creatinine Ratio 30 (6-20) Glucose Level 88 mg/dL (70-99) Calcium Level 9.3 mg/dL (8.5-10.1) Total Bilirubin 0.5 mg/dL (0.2-1.0) Aspartate Amino Transf (AST/SGOT) 17 U/L (15-37) Alanine Aminotransferase (ALT/SGPT) 38 U/L (16-63) Alkaline Phosphatase 118 U/L (46-116) Total Protein 7.6 g/dL (6.4-8.2) Albumin 2.9 g/dL (3.4-5.0) Albumin/Globulin Ratio 0.6 (1.0-1.7) Laboratory Tests Test 08/24/16 04:45 White Blood Count 8.0 x10^3/uL (4.0-11.0) Red Blood Count 3.86 x10^6/uL (4.30-5.70) Hemoglobin 12.6 g/dL (13.0-17.5) Hematocrit 37.6 % (39.0-53.0) Mean Corpuscular Volume 97 fL (79-100) Mean Corpuscular Hemoglobin 33 pg (25-35) Mean Corpuscular Hemoglobin Concent 34 g/dL (31-37) Red Cell Distribution Width 13.5 % (11.5-14.5) Platelet Count 898 x10^3/uL (140-400) Neutrophils (%) (Auto) 57 % (31-73) Lymphocytes (%) (Auto) 32 % (24-48) Monocytes (%) (Auto) 8 % (0-9) Eosinophils (%) (Auto) 2 % (0-3) Basophils (%) (Auto) 1 % (0-3) Neutrophils # (Auto) 4.6 x10^3uL (1.8-7.7) Lymphocytes # (Auto) 2.6 x10^3/uL (1.0-4.8) Monocytes # (Auto) 0.7 x10^3/uL (0.0-1.1) Eosinophils # (Auto) 0.1 x10^3/uL (0.0-0.7) Basophils # (Auto) 0.1 x10^3/uL (0.0-0.2) Sodium Level 138 mmol/L (136-145) Potassium Level 4.1 mmol/L (3.5-5.1) Chloride Level 101 mmol/L (98-107) Carbon Dioxide Level 27 mmol/L (21-32) Anion Gap 10 (6-14) Blood Urea Nitrogen 21 mg/dL (8-26) Creatinine 0.7 mg/dL (0.7-1.3) Estimated GFR (Cockcroft-Gault) 113.5 BUN/Creatinine Ratio 30 (6-20) Glucose Level 88 mg/dL (70-99) Calcium Level 9.3 mg/dL (8.5-10.1) Total Bilirubin 0.5 mg/dL (0.2-1.0) Aspartate Amino Transf (AST/SGOT) 17 U/L (15-37) Alanine Aminotransferase (ALT/SGPT) 38 U/L (16-63) Alkaline Phosphatase 118 U/L (46-116) Total Protein 7.6 g/dL (6.4-8.2) Albumin 2.9 g/dL (3.4-5.0) Albumin/Globulin Ratio 0.6 (1.0-1.7) Microbiology 08/11/16 Blood Culture - Final, Complete NO GROWTH AFTER 5 DAYS 08/11/16 Urine Culture - Final, Complete 08/11/16 Urine Culture Result 1 (JENNY) - Final, Complete 08/11/16 Antimicrobic Susceptibility - Final, Complete Medications Current Medications Diltiazem HCl (Cardizem) 25 mg STK-MED ONCE .ROUTE ; Start 08/08/16 at 10:37; Stop 08/08/16 at 10:38; Status DC Diltiazem HCl 125 mg/Dextrose 125 ml @ 0 mls/hr CONT PRN IV SEE I/O RECORD Last administered on 08/12/16 06:20; Start 08/08/16 at 11:00; Stop 08/12/16 at 12:30; Status DC Diltiazem HCl (Cardizem) 20 mg 1X ONCE IVP Last administered on 08/08/16 10: 40; Start 08/08/16 at 11:00; Stop 08/08/16 at 11:01; Status DC Lorazepam (Ativan) 2 mg STK-MED ONCE .ROUTE ; Start 08/08/16 at 10:55; Stop 01/14 at 10:56; Status DC Iohexol (Omnipaque 350 Mg/ml) 90 ml 1X ONCE IV Last administered on 08/08/16 11:15; Start 08/08/16 at 11:15; Stop 08/08/16 at 11:16; Status DC Propofol 20 ml @ 0 mls/hr 1X ONCE IV Last administered on 08/08/16 11:20; Start 08/08/16 at 11:15; Stop 08/08/16 at 11:16; Status DC Info (Do NOT chart on this entry -- for MONITORING) 1 each PRN DAILY PRN MC SEE COMMENTS; Start 08/08/16 at 11:15; Stop 08/10/16 at 09:37; Status DC Fentanyl Citrate (Fentanyl 2ml Vial) 100 mcg 1X ONCE IV Last administered on 11:03; Start 08/08/16 at 11:15; Stop 08/08/16 at 11:16; Status DC Fentanyl Citrate (Fentanyl 2ml Vial) 100 mcg 1X ONCE IV Last administered on 11:16; Start 08/08/16 at 11:15; Stop 08/08/16 at 11:16; Status DC Propofol 50 ml @ As Directed STK-MED ONCE IV ; Start 08/08/16 at 11:17; Stop 01/14 at 11:18; Status DC Ondansetron HCl (Zofran) 4 mg PRN Q8HRS PRN IV NAUSEA/VOMITING; Start 08/08/16 at 11:30; Stop 08/09/16 at 11:29; Status DC Fentanyl Citrate (Fentanyl 2ml Vial) 50 mcg PRN Q2HR PRN IV PAIN Last administered on 08/08/16 13:16; Start 08/08/16 at 11:30; Stop 08/09/16 at 11:29 ; Status DC Levetiracetam 1000 mg/Sodium Chloride 110 ml @ 440 mls/hr 1X ONCE IV Last administered on 08/08/16 11:39; Start 08/08/16 at 11:45; Stop 08/08/16 at 11:59 ; Status DC Fentanyl Citrate (Fentanyl 2ml Vial) 100 mcg 1X ONCE IV ; Start 08/08/16 at 11: 45; Stop 08/08/16 at 11:46; Status DC Propofol 50 ml @ As Directed STK-MED ONCE IV ; Start 08/08/16 at 12:09; Stop 01/14 at 12:10; Status DC Lorazepam (Ativan) 2 mg 1X ONCE IV ; Start 08/08/16 at 13:00; Stop 08/08/16 at 13:01; Status DC Succinylcholine Chloride (Anectine) 100 mg 1X ONCE IV ; Start 08/08/16 at 13:00 ; Stop 08/08/16 at 13:01; Status DC Etomidate (Amidate) 20 mg 1X ONCE IV ; Start 08/08/16 at 13:00; Stop 08/08/16 at 13:01; Status DC Propofol 100 ml @ 0 mls/hr CONT PRN IV PER PROTOCOL Last administered on 09:08; Start 08/08/16 at 13:45; Stop 08/11/16 at 10:11; Status DC Fentanyl Citrate (Fentanyl 2ml Vial) 50 mcg PRN Q1HR PRN IV COMM Last administered on 08/19/16 15:12; Start 08/08/16 at 13:45; Stop 08/19/16 at 15:17 ; Status DC Chlorhexidine Gluconate (Peridex) 15 ml BID MM Last administered on 08/09/16 09:08; Start 08/08/16 at 21:00; Stop 08/10/16 at 08:29; Status DC Ipratropium [place] (Atrovent) 0.5 mg RTQID NEB Last administered on 08/24/16 08:11; Start 08/08/16 at 16:00 Metoprolol Tartrate (Lopressor) 12.5 mg BID PO Last administered on 08/08/16 21:51; Start 08/08/16 at 14:30; Stop 08/10/16 at 09:48; Status DC Lorazepam (Ativan) 1 mg PRN Q4HRS PRN IV ANXIETY / AGITATION Last administered on 08/16/16 21:25; Start 08/08/16 at 14:45; Stop 08/20/16 at 12:24; Status DC Levetiracetam (Keppra) 500 mg Q12HR PO Last administered on 08/15/16 21:30; Start 08/08/16 at 21:00; Stop 08/16/16 at 17:14; Status DC Multivitamins 10 ml/Folic Acid 1 mg/Thiamine HCl 100 mg/Sodium Chloride 1,011.2 ml @ 100 mls/ hr Q24H IV Last administered on 08/17/16 16:12; Start 08/08/16 at 16:00; Stop 08/17/16 at 16:20; Status DC Lorazepam (Ativan) 2 mg PRN Q4HRS PRN IV ANXIETY / AGITATION Last administered on 08/10/16 11:11; Start 08/08/16 at 15:15; Stop 08/13/16 at 11:08; Status DC Aspirin (Zunilda Aspirin) 325 mg DAILY PO Last administered on 08/09/16 09:09; Start 08/09/16 at 09:00; Stop 08/10/16 at 09:48; Status DC Diltiazem HCl (Cardizem 24hr Cd) 240 mg DAILY PO ; Start 08/09/16 at 09:00; Stop 08/10/16 at 09:48; Status DC Lactulose 20 gm Q48H PO Last administered on 08/09/16 09:13; Start 08/09/16 at 09:00; Stop 08/09/16 at 16:32; Status DC Pantoprazole Sodium (Protonix) 40 mg DAILYAC PO ; Start 08/09/16 at 07:30; Stop 08/09/16 at 09:36; Status DC Non-Formulary Medication 100 mg DAILY PO Last administered on 08/13/16 10:02; Start 08/09/16 at 09:00; Stop 08/13/16 at 11:09; Status UNV Pantoprazole Sodium (Protonix Vial) 40 mg DAILYAC IVP Last administered on 08/18 09:24; Start 08/09/16 at 10:00; Stop 08/18/16 at 10:07; Status DC Iohexol (Omnipaque 300 Mg/ml) 75 ml 1X ONCE IV ; Start 08/09/16 at 14:00; Stop 08/09/16 at 14:01; Status DC Info (Do NOT chart on this entry -- for MONITORING) 1 each PRN DAILY PRN MC SEE COMMENTS; Start 08/09/16 at 14:00; Stop 08/11/16 at 13:59; Status DC Lactulose 20 gm BID PO Last administered on 08/11/16 10:27; Start 08/09/16 at 21:00; Stop 08/11/16 at 10:52; Status DC Lorazepam (Ativan) 2 mg PRN Q1HR PRN IV For CIWA 8-14 Last administered on 08/22 14:03; Start 08/09/16 at 20:45 Lorazepam (Ativan) 4 mg PRN Q1HR PRN IV For CIWA 15 or greater Last administered on 08/23/16 05:02; Start 08/09/16 at 20:45 Haloperidol Lactate (Haldol) 5 mg PRN Q4HRS PRN IVP Hallucinatns,Confusn, Delirium Last administered on 08/10/16 12:29; Start 08/09/16 at 20:45; Stop at 10:11; Status DC Metoprolol Tartrate (Lopressor) 5 mg PRN Q4HRS PRN IVP ELEVATED BP, SEE COMMENTS Last administered on 08/10/16 02:49; Start 08/09/16 at 22:15; Stop at 09:48; Status DC Diltiazem HCl (Cardizem) 5 mg 1X ONCE IVP Last administered on 08/10/16 08:22 ; Start 08/10/16 at 08:15; Stop 08/10/16 at 08:16; Status DC Metoprolol Tartrate (Lopressor) 5 mg Q6HRS PRN IVP ELEVATED BP, SEE COMMENTS; Start 08/10/16 at 09:45; Stop 08/10/16 at 10:05; Status DC Aspirin (Aspirin) 300 mg DAILY NC Last administered on 08/12/16 08:21; Start 08/10/16 at 09:45; Stop 08/12/16 at 11:14; Status DC Magnesium Sulfate/ Dextrose 50 ml @ 25 mls/hr 1X ONCE IV Last administered on 08/10/16 10:56; Start 08/10/16 at 10:00; Stop 08/10/16 at 11:59; Status DC Metoprolol Tartrate (Lopressor) 5 mg Q6HRS IVP Last administered on 08/12/16 05:00; Start 08/10/16 at 10:15; Stop 08/12/16 at 11:14; Status DC Enoxaparin Sodium (Lovenox 30mg Syringe) 30 mg Q24H SQ ; Start 08/10/16 at 15:00 ; Stop 08/10/16 at 15:00; Status DC Enoxaparin Sodium (Lovenox 40mg Syringe) 40 mg Q24H SQ Last administered on 15:36; Start 08/10/16 at 15:00 Acetaminophen (Tylenol) 650 mg PRN Q6HRS PRN PEG MILD PAIN / TEMP Last administered on 08/19/16 21:13; Start 08/10/16 at 23:45 Succinylcholine Chloride (Anectine) 200 mg STK-MED ONCE .ROUTE ; Start 08/11/16 at 01:30; Stop 08/11/16 at 01:31; Status DC Succinylcholine Chloride (Anectine) 200 mg STK-MED ONCE .ROUTE ; Start 08/11/16 at 01:30; Stop 08/11/16 at 08:48; Status DC Haloperidol Lactate (Haldol) 2.5 mg PRN Q4HRS PRN IVP Hallucinatns,Confusn, Delirium; Start 08/11/16 at 10:15 Potassium Chloride (KCl Oral Soln) 40 meq 1X ONCE PEG Last administered on 10:30; Start 08/11/16 at 10:30; Stop 08/11/16 at 10:31; Status DC Potassium Chloride (KCl Oral Soln) 40 meq 1X ONCE PEG Last administered on 16:00; Start 08/11/16 at 15:00; Stop 08/11/16 at 15:01; Status DC Digoxin (Lanoxin) 500 mcg 1X ONCE IV Last administered on 08/11/16 10:30; Start 08/11/16 at 10:30; Stop 08/11/16 at 10:31; Status DC Lactulose 20 gm QD PO Last administered on 08/14/16 09:54; Start 08/12/16 at 09:00; Stop 08/15/16 at 11:50; Status DC Phenylephrine HCl 20 mg/Sodium Chloride 252 ml @ 0 mls/hr 1X ONCE IV ; Start at 14:30; Stop 08/11/16 at 14:31; Status Cancel Magnesium Sulfate/ Dextrose 50 ml @ 25 mls/hr 1X ONCE IV Last administered on 08/12/16 09:32; Start 08/12/16 at 09:00; Stop 08/12/16 at 10:59; Status DC Magnesium Sulfate/ Dextrose 50 ml @ 25 mls/hr 1X ONCE IV Last administered on 08/12/16 17:56; Start 08/12/16 at 16:00; Stop 08/12/16 at 17:59; Status DC Potassium Chloride (KCl Oral Soln) 20 meq BID PEG Last administered on 21:52; Start 08/12/16 at 11:15; Stop 08/13/16 at 09:46; Status DC Diltiazem HCl (Cardizem) 60 mg Q6HRS PO Last administered on 08/22/16 12:26; Start 08/12/16 at 11:30 Metoprolol Tartrate (Lopressor) 25 mg BID FT Last administered on 08/12/16 21: 53; Start 08/12/16 at 21:00; Stop 08/13/16 at 09:46; Status DC Aspirin (Zunilda Aspirin) 325 mg DAILYWBKFT FT Last administered on 08/22/16 09: 38; Start 08/13/16 at 08:00 Ceftriaxone Sodium 1 gm/ Sodium Chloride 50 ml @ 100 mls/hr Q24H IV Last administered on 08/16/16 17:51; Start 08/12/16 at 17:00; Stop 08/17/16 at 10:33 ; Status DC Metoprolol Tartrate (Lopressor) 50 mg BID FT Last administered on 08/22/16 09: 39; Start 08/13/16 at 10:00; Stop 08/23/16 at 10:06; Status DC Potassium Chloride (KCl Oral Soln) 20 meq TID PEG Last administered on 21:33; Start 08/13/16 at 10:00; Stop 08/23/16 at 10:07; Status DC Magnesium Sulfate/ Dextrose 50 ml @ 25 mls/hr 1X ONCE IV Last administered on 08/13/16 11:26; Start 08/13/16 at 10:00; Stop 08/13/16 at 11:59; Status DC Potassium Chloride (Klor-Con) 40 meq 1X ONCE PO ; Start 08/15/16 at 14:00; Stop 08/15/16 at 14:01; Status DC Barium Sulfate (Varibar Thin Liquid Apple) 148 gm 1X ONCE PO Last administered on 08/16/16 12:55; Start 08/16/16 at 12:00; Stop 08/16/16 at 12:01 ; Status DC Levetiracetam (Keppra) 250 mg Q12HR PO Last administered on 08/19/16 08:56; Start 08/16/16 at 21:00; Stop 08/19/16 at 16:31; Status DC Rifaximin (Xifaxan) 550 mg Q12HR PO Last administered on 08/22/16 09:38; Start 08/17/16 at 13:30 Thiamine Mononitrate (Vitamin B-1) 100 mg DAILY PO Last administered on 09:40; Start 08/17/16 at 17:00 Potassium Chloride (Klor-Con) 40 meq 1X ONCE PO ; Start 08/18/16 at 09:45; Stop 08/18/16 at 09:46; Status Cancel Lansoprazole (Prevacid) 30 mg DAILY FT Last administered on 08/22/16 09:40; Start 08/19/16 at 09:00 Potassium Chloride (KCl Oral Soln) 20 meq 1X ONCE PEG Last administered on 13:13; Start 08/18/16 at 13:00; Stop 08/18/16 at 13:10; Status DC Acetaminophen/ Hydrocodone Bitart (Lortab 7.5-325/ 15ml Oral Solution) 10 ml PRN Q6HRS PRN NG MODERATE TO SEVERE PAIN Last administered on 08/22/16 12:55; Start 08/19/16 at 15:15; Stop 08/22/16 at 13:26; Status DC Levetiracetam (Keppra) 125 mg BID PO Last administered on 08/21/16 08:08; Start 08/19/16 at 21:00; Stop 08/21/16 at 09:03; Status DC Levetiracetam (Keppra) 125 mg BID PO Last administered on 08/22/16 09:40; Start 08/21/16 at 21:00; Stop 08/22/16 at 17:03; Status DC Acetaminophen/ Hydrocodone Bitart (Lortab 7.5-325/ 15ml Oral Solution) 10 ml PRN Q4HRS PRN NG MODERATE TO SEVERE PAIN; Start 08/22/16 at 15:15 Amino Acids/ Glycerin/ Electrolytes 1,000 ml @ 75 mls/hr [id number] IV Last administered on 08/24/16 04:58; Start 08/22/16 at 17:00 Levetiracetam 125 mg/Sodium Chloride 101.25 ml @ 400 mls/ hr Q12HR IV Last administered on 08/24/16 08:19; Start 08/22/16 at 21:00; Stop 08/25/16 at 10:15 Morphine Sulfate 2 mg PRN Q2HR PRN IV PAIN Last administered on 08/23/16 07:18 ; Start 08/22/16 at 18:15; Stop 08/23/16 at 09:39; Status DC Morphine Sulfate 4 mg PRN Q2HR PRN IV PAIN Last administered on 08/24/16 09:01 ; Start 08/23/16 at 09:45 Fentanyl Citrate (Fentanyl 2ml Vial) 75 mcg 1X ONCE IV Last administered on 09:53; Start 08/23/16 at 09:45; Stop 08/23/16 at 09:49; Status DC Potassium Chloride (KCl Oral Soln) 20 meq DAILY PEG ; Start 08/24/16 at 09:00 Active Scripts Active Lactulose 20 Gm/30 Ml Solution 20 Gm PO QODAY Ativan (Lorazepam) 0.5 Mg Tablet 0.5 Mg PO BID Diltiazem 24HR Cd (Diltiazem Hcl) 240 Mg Cap.er.24h 240 Mg PO DAILY Vitamin B-1 (Thiamine Hcl) 100 Mg Tablet 100 Mg PO DAILY [place] 5-325 Tablet (Acetaminophen/Hydrocodone Bitart) 1 Each Tablet 1 Tab PO PRN Q6HRS PRN Reported Omeprazole 20 Mg Capsule.dr 20 Mg PO DAILY Zofran Odt (Ondansetron) 8 Mg Tab.rapdis 1 Tab PO PRN Q8HRS PRN [place] 4.2-0.7 mg Film (Buprenorphine HCl/Naloxone HCl) 1 Each Film 1 Each BC DAILY Vitals/I & O Vital Sign - Last 24 Hours 08/23/16 08/23/16 08/23/16 08/23/16 12:08 13:26 13:56 15:00 Temp 97.9 97.9 Pulse 113 Resp 18 16 18 B/P (MAP) 104/73 (83) Pulse Ox 99 O2 Delivery Room Air Room Air Room Air 08/23/16 08/23/16 08/23/16 08/23/16 15:04 17:04 17:41 19:00 Temp 96.8 96.8 Pulse 113 61 Resp 16 B/P (MAP) 104/73 119/90 (100) Pulse Ox 99 87 O2 Delivery Room Air O2 Flow Rate 3.5 08/23/16 08/23/16 08/23/16 08/23/16 19:54 20:00 21:19 22:45 Temp 97.3 97.3 Pulse 62 Resp 18 B/P (MAP) 92/63 (73) Pulse Ox 97 97 96 O2 Delivery Room Air Room Air Room Air Room Air 08/24/16 08/24/16 08/24/16 08/24/16 01:10 03:00 04:57 05:29 Temp 97.9 97.9 Pulse 93 Resp 18 B/P (MAP) 107/74 (85) Pulse Ox 97 O2 Delivery Room Air Room Air Room Air Room Air 08/24/16 08/24/16 08/24/16 08/24/16 07:00 08:00 08:12 09:01 Temp 97.7 97.7 Pulse 18 Resp 18 18 B/P (MAP) 103/73 (83) Pulse Ox 97 97 97 O2 Delivery Room Air Room Air Room Air Room Air O2 Flow Rate 3.5 3.5 Intake and Output 08/23/16 08/23/16 08/24/16 15:00 23:00 07:00 Intake Total 0 ml Output Total 450 ml 400 ml 650 ml Balance -450 ml -400 ml -650 ml Nutrition Consultation Dietary Evaluation: Comments: Rec. continue the procalamine at this time for short term nutrition REC diet per PROPOSAL DEVELOPMENT MANAGER vs intermediate tube feedings vs comfort care Expected Outcomes/Goals: to meet > 75% est nutr needs via po intake vs tube feedings Malnutrition Findings: Food and Nutrition Intake (Mod: <75% est energy req 7days Body Fat Depletion (Non Severe: Mod to Severe Reduced Hospice Volunteer Coordinator Strength: N/A Reduced Hospice Volunteer Coordinator Strength (Non-Sev: N/A Weight Status: Underweight Fluid Accumulation (N/A): N/A WILDER BRYANT MD Aug 24, 2016 10:30
[2016-08-24 10:54] VITALS: BP 101/71
--- NOTE | 2016-08-24 14:25 | RAD ---
Indication: Dobbhoff placement. Time of exam 1409 hours. Dobbhoff has been placed and has the tip looped backwards upon itself directed retrograde in the distal esophagus near the GE junction. The visualized bowel gas pattern is unremarkable. Impression: Malpositioned Dobbhoff, as described.
--- NOTE | 2016-08-24 14:33 | PDOC2 ---
PALLIATIVE CARE Palliative Care Note Palliative Care Consult requested by Dr. Brennan to address plan of care. Diagnosis; Acute respiratory failure--extubated 08/09; hepatic encephalopathy, more alert today; siezure; debility, at fib, dysphagia, hep C. Family meeting arranged for 10 am tomorrow. Patient had been refusing/pulled out dobhoff tube. Now in agreement with dobhoff. Spoke with . Discussed goals and code status. now supportive of patient's wishes for DNR/DNI. This consistent with what he had told her before this illness. Spoke with Dr. Brennan. Consult discontinued. Patient now DNR/DNI PC will meet with pt/family in future if needed. ALCIRA WISEMAN Aug 24, 2016 14:33
[2016-08-24 15:20] VITALS: BP 111/82
[2016-08-24] MEDS: ENOXAPARIN 40 MG/0.4 ML SYRINGE. SQ SCH (15:52)
--- NOTE | 2016-08-24 18:13 | RAD ---
History: Dobbhoff tube placement. Comparison: Earlier August 24, 2016. Findings: AP upright view of the abdomen. Dobbhoff tube has been advanced with the tip projecting at the mid body of the stomach. Bowel gas pattern is nonspecific, without evidence of obstruction. No pneumoperitoneum is seen. Impression: Dobbhoff tube has been advanced with tip projecting at the mid body of the stomach. Electronically signed by: Ck Chopra MD (08/24/2016 6:10 PM)
[2016-08-24 19:00] VITALS: BP 112/65
[2016-08-24] MEDS: HYDROcodon/APAP 7.5/325MG ORAL 15 ML SOLUTION NG PRN (20:48)
[2016-08-24 23:00] VITALS: BP 111/75
[2016-08-25] VITALS (7 sets, daily range): BP systolic 93–147; BP diastolic 58–81
[2016-08-25] MEDS: MORPHINE SULFATE 2 MG/ML DISP.SYRIN. IV PRN ×6 (00:01→20:40)
[2016-08-25] MEDS: HYDROcodon/APAP 7.5/325MG ORAL 15 ML SOLUTION NG PRN (05:33)
[2016-08-25] MEDS: dilTIAZem HCL 30 MG TABLET PO SCH ×3 (05:34→18:28)
[2016-08-25] MEDS: IPRATROPIUM BROMIDE 0.5 MG/2.5 ML NEBU. NEB SCH ×4 (07:18→19:17)
[2016-08-25] MEDS: ASPIRIN 325 MG TABLET FT SCH (07:53)
[2016-08-25] MEDS: LANSOPRAZOLE 30 MG TAB.RAP.DR FT SCH (08:01)
[2016-08-25] MEDS: THIAMINE 100 MG TABLET. PO SCH (08:01)
[2016-08-25] MEDS: NORMAL SALINE IV SCH (08:02)
[2016-08-25] MEDS: LEVETIRACETAM IV SCH (08:02)
[2016-08-25] MEDS: rifAXIMin 550 MG TABLET PO SCH ×2 (08:07→20:40)
[2016-08-25] MEDS: POTASSIUM CHLORIDE 20 MEQ/15 ML ORAL LIQUID. PEG SCH (08:08)
--- NOTE | 2016-08-25 09:32 | PDOC ---
PROGRESS NOTES Chief Complaint Chief Complaint cc: seizure like activity dysphagia, weakness Acute hypoxic respiratory failure: Extubated 08/09, on NC Hepatic encephalopathy, now much improved Possible alcohol withdrawal seizures: Chronic alcohol abuse Physical debility and weakness. , Paroxysmal, Afib: on Cardizem, rate controlled. Oropharyngeal dysphagia: , tube feeds. failed speech, Hypokalemia: replaced, Hx hep C History of Present Illness History of Present Illness clear mentally today Dobhoff placed for feeds voice better today, feels stronger discussed with speech at length, pt may need ENT eval at some point if swallow still struggles looks better DNR, was discussed with palliative care and family yesterday Vitals Vitals Vital Signs Date Time Temp Pulse Resp B/P (MAP) Pulse Ox O2 Delivery O2 Flow Rate FiO2 08/25/16 08:00 Room Air 3.5 08/25/16 07:55 16 99 08/25/16 07:00 98.2 59 103/59 (74) 98.2 Physical Exam General: Alert, Cooperative, No acute distress Heart: Regular rate Lungs: Clear Abdomen: Normal bowel sounds, No tenderness, Other (NG in place) Extremities: No clubbing, No cyanosis, No edema Skin: No significant lesion Review of Systems Review of Systems no n.v.d more calm reading some Assessment and Plan Assessmemt and Plan Problems Medical Problems: (1) Alcohol withdrawal Status: Acute (2) Hepatic encephalopathy Status: Acute (3) Lactic acid acidosis Status: Acute (4) Respiratory failure Status: Acute Problems: Comment Review of Relevant I have reviewed the following items chikis (where applicable) has been applied. Labs Laboratory Tests Test 08/24/16 04:45 White Blood Count 8.0 x10^3/uL (4.0-11.0) Red Blood Count 3.86 x10^6/uL (4.30-5.70) Hemoglobin 12.6 g/dL (13.0-17.5) Hematocrit 37.6 % (39.0-53.0) Mean Corpuscular Volume 97 fL (79-100) Mean Corpuscular Hemoglobin 33 pg (25-35) Mean Corpuscular Hemoglobin Concent 34 g/dL (31-37) Red Cell Distribution Width 13.5 % (11.5-14.5) Platelet Count 898 x10^3/uL (140-400) Neutrophils (%) (Auto) 57 % (31-73) Lymphocytes (%) (Auto) 32 % (24-48) Monocytes (%) (Auto) 8 % (0-9) Eosinophils (%) (Auto) 2 % (0-3) Basophils (%) (Auto) 1 % (0-3) Neutrophils # (Auto) 4.6 x10^3uL (1.8-7.7) Lymphocytes # (Auto) 2.6 x10^3/uL (1.0-4.8) Monocytes # (Auto) 0.7 x10^3/uL (0.0-1.1) Eosinophils # (Auto) 0.1 x10^3/uL (0.0-0.7) Basophils # (Auto) 0.1 x10^3/uL (0.0-0.2) Sodium Level 138 mmol/L (136-145) Potassium Level 4.1 mmol/L (3.5-5.1) Chloride Level 101 mmol/L (98-107) Carbon Dioxide Level 27 mmol/L (21-32) Anion Gap 10 (6-14) Blood Urea Nitrogen 21 mg/dL (8-26) Creatinine 0.7 mg/dL (0.7-1.3) Estimated GFR (Cockcroft-Gault) 113.5 BUN/Creatinine Ratio 30 (6-20) Glucose Level 88 mg/dL (70-99) Calcium Level 9.3 mg/dL (8.5-10.1) Total Bilirubin 0.5 mg/dL (0.2-1.0) Aspartate Amino Transf (AST/SGOT) 17 U/L (15-37) Alanine Aminotransferase (ALT/SGPT) 38 U/L (16-63) Alkaline Phosphatase 118 U/L (46-116) Total Protein 7.6 g/dL (6.4-8.2) Albumin 2.9 g/dL (3.4-5.0) Albumin/Globulin Ratio 0.6 (1.0-1.7) Microbiology 08/11/16 Blood Culture - Final, Complete NO GROWTH AFTER 5 DAYS 08/11/16 Urine Culture - Final, Complete 08/11/16 Urine Culture Result 1 (JENNY) - Final, Complete 08/11/16 Antimicrobic Susceptibility - Final, Complete Medications Current Medications Diltiazem HCl (Cardizem) 25 mg STK-MED ONCE .ROUTE ; Start 08/08/16 at 10:37; Stop 08/08/16 at 10:38; Status DC Diltiazem HCl 125 mg/Dextrose 125 ml @ 0 mls/hr CONT PRN IV SEE I/O RECORD Last administered on 08/12/16 06:20; Start 08/08/16 at 11:00; Stop 08/12/16 at 12:30; Status DC Diltiazem HCl (Cardizem) 20 mg 1X ONCE IVP Last administered on 08/08/16 10: 40; Start 08/08/16 at 11:00; Stop 08/08/16 at 11:01; Status DC Lorazepam (Ativan) 2 mg STK-MED ONCE .ROUTE ; Start 08/08/16 at 10:55; Stop 01/14 at 10:56; Status DC Iohexol (Omnipaque 350 Mg/ml) 90 ml 1X ONCE IV Last administered on 08/08/16 11:15; Start 08/08/16 at 11:15; Stop 08/08/16 at 11:16; Status DC Propofol 20 ml @ 0 mls/hr 1X ONCE IV Last administered on 08/08/16 11:20; Start 08/08/16 at 11:15; Stop 08/08/16 at 11:16; Status DC Info (Do NOT chart on this entry -- for MONITORING) 1 each PRN DAILY PRN MC SEE COMMENTS; Start 08/08/16 at 11:15; Stop 08/10/16 at 09:37; Status DC Fentanyl Citrate (Fentanyl 2ml Vial) 100 mcg 1X ONCE IV Last administered on 11:03; Start 08/08/16 at 11:15; Stop 08/08/16 at 11:16; Status DC Fentanyl Citrate (Fentanyl 2ml Vial) 100 mcg 1X ONCE IV Last administered on 11:16; Start 08/08/16 at 11:15; Stop 08/08/16 at 11:16; Status DC Propofol 50 ml @ As Directed STK-MED ONCE IV ; Start 08/08/16 at 11:17; Stop 01/14 at 11:18; Status DC Ondansetron HCl (Zofran) 4 mg PRN Q8HRS PRN IV NAUSEA/VOMITING; Start 08/08/16 at 11:30; Stop 08/09/16 at 11:29; Status DC Fentanyl Citrate (Fentanyl 2ml Vial) 50 mcg PRN Q2HR PRN IV PAIN Last administered on 08/08/16 13:16; Start 08/08/16 at 11:30; Stop 08/09/16 at 11:29 ; Status DC Levetiracetam 1000 mg/Sodium Chloride 110 ml @ 440 mls/hr 1X ONCE IV Last administered on 08/08/16 11:39; Start 08/08/16 at 11:45; Stop 08/08/16 at 11:59 ; Status DC Fentanyl Citrate (Fentanyl 2ml Vial) 100 mcg 1X ONCE IV ; Start 08/08/16 at 11: 45; Stop 08/08/16 at 11:46; Status DC Propofol 50 ml @ As Directed STK-MED ONCE IV ; Start 08/08/16 at 12:09; Stop 01/14 at 12:10; Status DC Lorazepam (Ativan) 2 mg 1X ONCE IV ; Start 08/08/16 at 13:00; Stop 08/08/16 at 13:01; Status DC Succinylcholine Chloride (Anectine) 100 mg 1X ONCE IV ; Start 08/08/16 at 13:00 ; Stop 08/08/16 at 13:01; Status DC Etomidate (Amidate) 20 mg 1X ONCE IV ; Start 08/08/16 at 13:00; Stop 08/08/16 at 13:01; Status DC Propofol 100 ml @ 0 mls/hr CONT PRN IV PER PROTOCOL Last administered on 09:08; Start 08/08/16 at 13:45; Stop 08/11/16 at 10:11; Status DC Fentanyl Citrate (Fentanyl 2ml Vial) 50 mcg PRN Q1HR PRN IV COMM Last administered on 08/19/16 15:12; Start 08/08/16 at 13:45; Stop 08/19/16 at 15:17 ; Status DC Chlorhexidine Gluconate (Peridex) 15 ml BID MM Last administered on 08/09/16 09:08; Start 08/08/16 at 21:00; Stop 08/10/16 at 08:29; Status DC Ipratropium [place] (Atrovent) 0.5 mg RTQID NEB Last administered on 08/25/16 07:18; Start 08/08/16 at 16:00 Metoprolol Tartrate (Lopressor) 12.5 mg BID PO Last administered on 08/08/16 21:51; Start 08/08/16 at 14:30; Stop 08/10/16 at 09:48; Status DC Lorazepam (Ativan) 1 mg PRN Q4HRS PRN IV ANXIETY / AGITATION Last administered on 08/16/16 21:25; Start 08/08/16 at 14:45; Stop 08/20/16 at 12:24; Status DC Levetiracetam (Keppra) 500 mg Q12HR PO Last administered on 08/15/16 21:30; Start 08/08/16 at 21:00; Stop 08/16/16 at 17:14; Status DC Multivitamins 10 ml/Folic Acid 1 mg/Thiamine HCl 100 mg/Sodium Chloride 1,011.2 ml @ 100 mls/ hr Q24H IV Last administered on 08/17/16 16:12; Start 08/08/16 at 16:00; Stop 08/17/16 at 16:20; Status DC Lorazepam (Ativan) 2 mg PRN Q4HRS PRN IV ANXIETY / AGITATION Last administered on 08/10/16 11:11; Start 08/08/16 at 15:15; Stop 08/13/16 at 11:08; Status DC Aspirin (Zunilda Aspirin) 325 mg DAILY PO Last administered on 08/09/16 09:09; Start 08/09/16 at 09:00; Stop 08/10/16 at 09:48; Status DC Diltiazem HCl (Cardizem 24hr Cd) 240 mg DAILY PO ; Start 08/09/16 at 09:00; Stop 08/10/16 at 09:48; Status DC Lactulose 20 gm Q48H PO Last administered on 08/09/16 09:13; Start 08/09/16 at 09:00; Stop 08/09/16 at 16:32; Status DC Pantoprazole Sodium (Protonix) 40 mg DAILYAC PO ; Start 08/09/16 at 07:30; Stop 08/09/16 at 09:36; Status DC Non-Formulary Medication 100 mg DAILY PO Last administered on 08/13/16 10:02; Start 08/09/16 at 09:00; Stop 08/13/16 at 11:09; Status UNV Pantoprazole Sodium (Protonix Vial) 40 mg DAILYAC IVP Last administered on 08/18 09:24; Start 08/09/16 at 10:00; Stop 08/18/16 at 10:07; Status DC Iohexol (Omnipaque 300 Mg/ml) 75 ml 1X ONCE IV ; Start 08/09/16 at 14:00; Stop 08/09/16 at 14:01; Status DC Info (Do NOT chart on this entry -- for MONITORING) 1 each PRN DAILY PRN MC SEE COMMENTS; Start 08/09/16 at 14:00; Stop 08/11/16 at 13:59; Status DC Lactulose 20 gm BID PO Last administered on 08/11/16 10:27; Start 08/09/16 at 21:00; Stop 08/11/16 at 10:52; Status DC Lorazepam (Ativan) 2 mg PRN Q1HR PRN IV For CIWA 8-14 Last administered on 08/22 14:03; Start 08/09/16 at 20:45 Lorazepam (Ativan) 4 mg PRN Q1HR PRN IV For CIWA 15 or greater Last administered on 08/23/16 05:02; Start 08/09/16 at 20:45 Haloperidol Lactate (Haldol) 5 mg PRN Q4HRS PRN IVP Hallucinatns,Confusn, Delirium Last administered on 08/10/16 12:29; Start 08/09/16 at 20:45; Stop at 10:11; Status DC Metoprolol Tartrate (Lopressor) 5 mg PRN Q4HRS PRN IVP ELEVATED BP, SEE COMMENTS Last administered on 08/10/16 02:49; Start 08/09/16 at 22:15; Stop at 09:48; Status DC Diltiazem HCl (Cardizem) 5 mg 1X ONCE IVP Last administered on 08/10/16 08:22 ; Start 08/10/16 at 08:15; Stop 08/10/16 at 08:16; Status DC Metoprolol Tartrate (Lopressor) 5 mg Q6HRS PRN IVP ELEVATED BP, SEE COMMENTS; Start 08/10/16 at 09:45; Stop 08/10/16 at 10:05; Status DC Aspirin (Aspirin) 300 mg DAILY OK Last administered on 08/12/16 08:21; Start 08/10/16 at 09:45; Stop 08/12/16 at 11:14; Status DC Magnesium Sulfate/ Dextrose 50 ml @ 25 mls/hr 1X ONCE IV Last administered on 08/10/16 10:56; Start 08/10/16 at 10:00; Stop 08/10/16 at 11:59; Status DC Metoprolol Tartrate (Lopressor) 5 mg Q6HRS IVP Last administered on 08/12/16 05:00; Start 08/10/16 at 10:15; Stop 08/12/16 at 11:14; Status DC Enoxaparin Sodium (Lovenox 30mg Syringe) 30 mg Q24H SQ ; Start 08/10/16 at 15:00 ; Stop 08/10/16 at 15:00; Status DC Enoxaparin Sodium (Lovenox 40mg Syringe) 40 mg Q24H SQ Last administered on 15:52; Start 08/10/16 at 15:00 Acetaminophen (Tylenol) 650 mg PRN Q6HRS PRN PEG MILD PAIN / TEMP Last administered on 08/19/16 21:13; Start 08/10/16 at 23:45 Succinylcholine Chloride (Anectine) 200 mg STK-MED ONCE .ROUTE ; Start 08/11/16 at 01:30; Stop 08/11/16 at 01:31; Status DC Succinylcholine Chloride (Anectine) 200 mg STK-MED ONCE .ROUTE ; Start 08/11/16 at 01:30; Stop 08/11/16 at 08:48; Status DC Haloperidol Lactate (Haldol) 2.5 mg PRN Q4HRS PRN IVP Hallucinatns,Confusn, Delirium; Start 08/11/16 at 10:15 Potassium Chloride (KCl Oral Soln) 40 meq 1X ONCE PEG Last administered on 10:30; Start 08/11/16 at 10:30; Stop 08/11/16 at 10:31; Status DC Potassium Chloride (KCl Oral Soln) 40 meq 1X ONCE PEG Last administered on 16:00; Start 08/11/16 at 15:00; Stop 08/11/16 at 15:01; Status DC Digoxin (Lanoxin) 500 mcg 1X ONCE IV Last administered on 08/11/16 10:30; Start 08/11/16 at 10:30; Stop 08/11/16 at 10:31; Status DC Lactulose 20 gm QD PO Last administered on 08/14/16 09:54; Start 08/12/16 at 09:00; Stop 08/15/16 at 11:50; Status DC Phenylephrine HCl 20 mg/Sodium Chloride 252 ml @ 0 mls/hr 1X ONCE IV ; Start at 14:30; Stop 08/11/16 at 14:31; Status Cancel Magnesium Sulfate/ Dextrose 50 ml @ 25 mls/hr 1X ONCE IV Last administered on 08/12/16 09:32; Start 08/12/16 at 09:00; Stop 08/12/16 at 10:59; Status DC Magnesium Sulfate/ Dextrose 50 ml @ 25 mls/hr 1X ONCE IV Last administered on 08/12/16 17:56; Start 08/12/16 at 16:00; Stop 08/12/16 at 17:59; Status DC Potassium Chloride (KCl Oral Soln) 20 meq BID PEG Last administered on 21:52; Start 08/12/16 at 11:15; Stop 08/13/16 at 09:46; Status DC Diltiazem HCl (Cardizem) 60 mg Q6HRS PO Last administered on 08/25/16 05:34; Start 08/12/16 at 11:30 Metoprolol Tartrate (Lopressor) 25 mg BID FT Last administered on 08/12/16 21: 53; Start 08/12/16 at 21:00; Stop 08/13/16 at 09:46; Status DC Aspirin (Zunilda Aspirin) 325 mg [id number] FT Last administered on 08/25/16 07: 53; Start 08/13/16 at 08:00 Ceftriaxone Sodium 1 gm/ Sodium Chloride 50 ml @ 100 mls/hr Q24H IV Last administered on 08/16/16 17:51; Start 08/12/16 at 17:00; Stop 08/17/16 at 10:33 ; Status DC Metoprolol Tartrate (Lopressor) 50 mg BID FT Last administered on 08/22/16 09: 39; Start 08/13/16 at 10:00; Stop 08/23/16 at 10:06; Status DC Potassium Chloride (KCl Oral Soln) 20 meq TID PEG Last administered on 21:33; Start 08/13/16 at 10:00; Stop 08/23/16 at 10:07; Status DC Magnesium Sulfate/ Dextrose 50 ml @ 25 mls/hr 1X ONCE IV Last administered on 08/13/16 11:26; Start 08/13/16 at 10:00; Stop 08/13/16 at 11:59; Status DC Potassium Chloride (Klor-Con) 40 meq 1X ONCE PO ; Start 08/15/16 at 14:00; Stop 08/15/16 at 14:01; Status DC Barium Sulfate (Varibar Thin Liquid Apple) 148 gm 1X ONCE PO Last administered on 08/16/16 12:55; Start 08/16/16 at 12:00; Stop 08/16/16 at 12:01 ; Status DC Levetiracetam (Keppra) 250 mg Q12HR PO Last administered on 08/19/16 08:56; Start 08/16/16 at 21:00; Stop 08/19/16 at 16:31; Status DC Rifaximin (Xifaxan) 550 mg Q12HR PO Last administered on 08/25/16 08:07; Start 08/17/16 at 13:30 Thiamine Mononitrate (Vitamin B-1) 100 mg DAILY PO Last administered on 08:01; Start 08/17/16 at 17:00 Potassium Chloride (Klor-Con) 40 meq 1X ONCE PO ; Start 08/18/16 at 09:45; Stop 08/18/16 at 09:46; Status Cancel Lansoprazole (Prevacid) 30 mg DAILY FT Last administered on 08/25/16 08:01; Start 08/19/16 at 09:00 Potassium Chloride (KCl Oral Soln) 20 meq 1X ONCE PEG Last administered on 13:13; Start 08/18/16 at 13:00; Stop 08/18/16 at 13:10; Status DC Acetaminophen/ Hydrocodone Bitart (Lortab 7.5-325/ 15ml Oral Solution) 10 ml PRN Q6HRS PRN NG MODERATE TO SEVERE PAIN Last administered on 08/22/16 12:55; Start 08/19/16 at 15:15; Stop 08/22/16 at 13:26; Status DC Levetiracetam (Keppra) 125 mg BID PO Last administered on 08/21/16 08:08; Start 08/19/16 at 21:00; Stop 08/21/16 at 09:03; Status DC Levetiracetam (Keppra) 125 mg BID PO Last administered on 08/22/16 09:40; Start 08/21/16 at 21:00; Stop 08/22/16 at 17:03; Status DC Acetaminophen/ Hydrocodone Bitart (Lortab 7.5-325/ 15ml Oral Solution) 10 ml PRN Q4HRS PRN NG MODERATE TO SEVERE PAIN Last administered on 08/25/16 05:33; Start 08/22/16 at 15:15 Amino Acids/ Glycerin/ Electrolytes 1,000 ml @ 80 mls/hr [id number] IV Last administered on 08/24/16 20:59; Start 08/22/16 at 17:00 Levetiracetam 125 mg/Sodium Chloride 101.25 ml @ 400 mls/ hr Q12HR IV Last administered on 08/25/16 08:02; Start 08/22/16 at 21:00; Stop 08/25/16 at 10:15 Morphine Sulfate 2 mg PRN Q2HR PRN IV PAIN Last administered on 08/23/16 07:18 ; Start 08/22/16 at 18:15; Stop 08/23/16 at 09:39; Status DC Morphine Sulfate 4 mg PRN Q2HR PRN IV PAIN Last administered on 08/25/16 07:55 ; Start 08/23/16 at 09:45 Fentanyl Citrate (Fentanyl 2ml Vial) 75 mcg 1X ONCE IV Last administered on 09:53; Start 08/23/16 at 09:45; Stop 08/23/16 at 09:49; Status DC Potassium Chloride (KCl Oral Soln) 20 meq DAILY PEG Last administered on t 08:08; Start 08/24/16 at 09:00 Active Scripts Active Lactulose 20 Gm/30 Ml Solution 20 Gm PO QODAY Ativan (Lorazepam) 0.5 Mg Tablet 0.5 Mg PO BID Diltiazem 24HR Cd (Diltiazem Hcl) 240 Mg Cap.er.24h 240 Mg PO DAILY Vitamin B-1 (Thiamine Hcl) 100 Mg Tablet 100 Mg PO DAILY [place] 5-325 Tablet (Acetaminophen/Hydrocodone Bitart) 1 Each Tablet 1 Tab PO PRN Q6HRS PRN Reported Omeprazole 20 Mg Capsule.dr 20 Mg PO DAILY Zofran Odt (Ondansetron) 8 Mg Tab.rapdis 1 Tab PO PRN Q8HRS PRN [place] 4.2-0.7 mg Film (Buprenorphine HCl/Naloxone HCl) 1 Each Film 1 Each BC DAILY Vitals/I & O Vital Sign - Last 24 Hours 08/24/16 08/24/16 08/24/16 08/24/16 09:31 10:54 12:31 13:05 Temp 97.5 97.5 Pulse 82 Resp 16 16 16 B/P (MAP) 101/71 (81) Pulse Ox 96 96 O2 Delivery Room Air Room Air Room Air O2 Flow Rate 3.5 08/24/16 08/24/16 08/24/16 08/24/16 15:20 15:41 16:01 18:31 Temp 97.7 97.7 Pulse 80 Resp 18 B/P (MAP) 111/82 (92) Pulse Ox 96 O2 Delivery Room Air Room Air Room Air Room Air 08/24/16 08/24/16 08/24/16 08/24/16 18:37 19:00 19:30 20:00 Temp 97.5 97.5 Pulse 87 62 Resp 16 B/P (MAP) 112/81 112/65 (81) Pulse Ox 99 96 O2 Delivery Room Air Room Air Room Air O2 Flow Rate 3.5 08/24/16 08/24/16 08/24/16 08/25/16 20:48 23:00 23:57 00:01 Temp 97.4 97.4 Pulse 63 63 Resp 16 B/P (MAP) 111/75 (87) 111/75 Pulse Ox 96 97 97 O2 Delivery Room Air Room Air Room Air O2 Flow Rate 3.5 3.5 08/25/16 08/25/16 08/25/16 08/25/16 03:00 04:18 04:48 05:33 Temp 97.5 97.5 Pulse 63 Resp 16 20 B/P (MAP) 117/75 (89) Pulse Ox 97 97 97 97 O2 Delivery Room Air Room Air Room Air Room Air O2 Flow Rate 3.5 3.5 3.5 08/25/16 08/25/16 08/25/16 08/25/16 05:34 06:33 07:00 07:18 Temp 98.2 98.2 Pulse 72 59 Resp 18 B/P (MAP) 108/69 103/59 (74) Pulse Ox 97 96 99 O2 Delivery Room Air Room Air Room Air O2 Flow Rate 3.5 08/25/16 08/25/16 07:55 08:00 Resp 16 Pulse Ox 99 O2 Delivery Room Air Room Air O2 Flow Rate 3.5 3.5 Intake and Output 08/24/16 08/24/16 08/25/16 15:00 23:00 07:00 Intake Total 0 ml 0 ml Balance 0 ml 0 ml Nutrition Consultation Dietary Evaluation: Comments: Rec. 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
[2016-08-25] MEDS: AMINO AC 3%/ELECTROLYTE/GLYCER 1,000 ML IV SCH ×2 (10:19→22:06)
--- NOTE | 2016-08-25 11:28 | PDOC ---
PROGRESS NOTES Assessment Problems Medical Problems: (1) Alcohol withdrawal Status: Acute (2) Hepatic encephalopathy Status: Acute (3) Lactic acid acidosis Status: Acute (4) Respiratory failure Status: Acute Seizure x 2 on 08/08/16, alcohol related. Metabolic encephalopathy. Tiny right frontal and parietal junction infract, asymptomatic, incidental finding. Dysphagia, has NG tube Plan Continue current supportive care Will follow Subjective No complaints Objective Vital Signs Date Time Temp Pulse Resp B/P (MAP) Pulse Ox O2 Delivery O2 Flow Rate FiO2 08/25/16 10:41 93/60 (71) 08/25/16 10:39 Room Air 08/25/16 10:38 98.1 55 18 95 98.1 08/25/16 08:25 3.5 Intake and Output 08/25/16 07:00 Intake Total 0 ml Balance 0 ml Intake Oral 0 ml # Voids 3 # Bowel Movements 1 PHYSICAL EXAM Alert. Oriented to time, place and person. PERRL. EOMI. CN: no focal findings. Muscle tone: normal. Muscle strength: 5-/5 DTR: 2+ Plantar reflex: flexor Gait: not examined in bed. Sensory exam: no abnormal findings. No cerebellar signs elicited. Review of Relevant I have reviewed the following items chikis (where applicable) has been applied. Labs Laboratory Tests Test 08/24/16 04:45 White Blood Count 8.0 x10^3/uL (4.0-11.0) Red Blood Count 3.86 x10^6/uL (4.30-5.70) Hemoglobin 12.6 g/dL (13.0-17.5) Hematocrit 37.6 % (39.0-53.0) Mean Corpuscular Volume 97 fL (79-100) Mean Corpuscular Hemoglobin 33 pg (25-35) Mean Corpuscular Hemoglobin Concent 34 g/dL (31-37) Red Cell Distribution Width 13.5 % (11.5-14.5) Platelet Count 898 x10^3/uL (140-400) Neutrophils (%) (Auto) 57 % (31-73) Lymphocytes (%) (Auto) 32 % (24-48) Monocytes (%) (Auto) 8 % (0-9) Eosinophils (%) (Auto) 2 % (0-3) Basophils (%) (Auto) 1 % (0-3) Neutrophils # (Auto) 4.6 x10^3uL (1.8-7.7) Lymphocytes # (Auto) 2.6 x10^3/uL (1.0-4.8) Monocytes # (Auto) 0.7 x10^3/uL (0.0-1.1) Eosinophils # (Auto) 0.1 x10^3/uL (0.0-0.7) Basophils # (Auto) 0.1 x10^3/uL (0.0-0.2) Sodium Level 138 mmol/L (136-145) Potassium Level 4.1 mmol/L (3.5-5.1) Chloride Level 101 mmol/L (98-107) Carbon Dioxide Level 27 mmol/L (21-32) Anion Gap 10 (6-14) Blood Urea Nitrogen 21 mg/dL (8-26) Creatinine 0.7 mg/dL (0.7-1.3) Estimated GFR (Cockcroft-Gault) 113.5 BUN/Creatinine Ratio 30 (6-20) Glucose Level 88 mg/dL (70-99) Calcium Level 9.3 mg/dL (8.5-10.1) Total Bilirubin 0.5 mg/dL (0.2-1.0) Aspartate Amino Transf (AST/SGOT) 17 U/L (15-37) Alanine Aminotransferase (ALT/SGPT) 38 U/L (16-63) Alkaline Phosphatase 118 U/L (46-116) Total Protein 7.6 g/dL (6.4-8.2) Albumin 2.9 g/dL (3.4-5.0) Albumin/Globulin Ratio 0.6 (1.0-1.7) Microbiology 08/11/16 Blood Culture - Final, Complete NO GROWTH AFTER 5 DAYS 08/11/16 Urine Culture - Final, Complete 08/11/16 Urine Culture Result 1 (JENNY) - Final, Complete 08/11/16 Antimicrobic Susceptibility - Final, Complete Medications Current Medications Diltiazem HCl (Cardizem) 25 mg STK-MED ONCE .ROUTE ; Start 08/08/16 at 10:37; Stop 08/08/16 at 10:38; Status DC Diltiazem HCl 125 mg/Dextrose 125 ml @ 0 mls/hr CONT PRN IV SEE I/O RECORD Last administered on 08/12/16 06:20; Start 08/08/16 at 11:00; Stop 08/12/16 at 12:30; Status DC Diltiazem HCl (Cardizem) 20 mg 1X ONCE IVP Last administered on 08/08/16 10: 40; Start 08/08/16 at 11:00; Stop 08/08/16 at 11:01; Status DC Lorazepam (Ativan) 2 mg STK-MED ONCE .ROUTE ; Start 08/08/16 at 10:55; Stop 01/14 at 10:56; Status DC Iohexol (Omnipaque 350 Mg/ml) 90 ml 1X ONCE IV Last administered on 08/08/16 11:15; Start 08/08/16 at 11:15; Stop 08/08/16 at 11:16; Status DC Propofol 20 ml @ 0 mls/hr 1X ONCE IV Last administered on 08/08/16 11:20; Start 08/08/16 at 11:15; Stop 08/08/16 at 11:16; Status DC Info (Do NOT chart on this entry -- for MONITORING) 1 each PRN DAILY PRN MC SEE COMMENTS; Start 08/08/16 at 11:15; Stop 08/10/16 at 09:37; Status DC Fentanyl Citrate (Fentanyl 2ml Vial) 100 mcg 1X ONCE IV Last administered on 11:03; Start 08/08/16 at 11:15; Stop 08/08/16 at 11:16; Status DC Fentanyl Citrate (Fentanyl 2ml Vial) 100 mcg 1X ONCE IV Last administered on 11:16; Start 08/08/16 at 11:15; Stop 08/08/16 at 11:16; Status DC Propofol 50 ml @ As Directed STK-MED ONCE IV ; Start 08/08/16 at 11:17; Stop 01/14 at 11:18; Status DC Ondansetron HCl (Zofran) 4 mg PRN Q8HRS PRN IV NAUSEA/VOMITING; Start 08/08/16 at 11:30; Stop 08/09/16 at 11:29; Status DC Fentanyl Citrate (Fentanyl 2ml Vial) 50 mcg PRN Q2HR PRN IV PAIN Last administered on 08/08/16 13:16; Start 08/08/16 at 11:30; Stop 08/09/16 at 11:29 ; Status DC Levetiracetam 1000 mg/Sodium Chloride 110 ml @ 440 mls/hr 1X ONCE IV Last administered on 08/08/16 11:39; Start 08/08/16 at 11:45; Stop 08/08/16 at 11:59 ; Status DC Fentanyl Citrate (Fentanyl 2ml Vial) 100 mcg 1X ONCE IV ; Start 08/08/16 at 11: 45; Stop 08/08/16 at 11:46; Status DC Propofol 50 ml @ As Directed STK-MED ONCE IV ; Start 08/08/16 at 12:09; Stop 01/14 at 12:10; Status DC Lorazepam (Ativan) 2 mg 1X ONCE IV ; Start 08/08/16 at 13:00; Stop 08/08/16 at 13:01; Status DC Succinylcholine Chloride (Anectine) 100 mg 1X ONCE IV ; Start 08/08/16 at 13:00 ; Stop 08/08/16 at 13:01; Status DC Etomidate (Amidate) 20 mg 1X ONCE IV ; Start 08/08/16 at 13:00; Stop 08/08/16 at 13:01; Status DC Propofol 100 ml @ 0 mls/hr CONT PRN IV PER PROTOCOL Last administered on 09:08; Start 08/08/16 at 13:45; Stop 08/11/16 at 10:11; Status DC Fentanyl Citrate (Fentanyl 2ml Vial) 50 mcg PRN Q1HR PRN IV COMM Last administered on 08/19/16 15:12; Start 08/08/16 at 13:45; Stop 08/19/16 at 15:17 ; Status DC Chlorhexidine Gluconate (Peridex) 15 ml BID MM Last administered on 08/09/16 09:08; Start 08/08/16 at 21:00; Stop 08/10/16 at 08:29; Status DC Ipratropium [place] (Atrovent) 0.5 mg RTQID NEB Last administered on 08/25/16 10:39; Start 08/08/16 at 16:00 Metoprolol Tartrate (Lopressor) 12.5 mg BID PO Last administered on 08/08/16 21:51; Start 08/08/16 at 14:30; Stop 08/10/16 at 09:48; Status DC Lorazepam (Ativan) 1 mg PRN Q4HRS PRN IV ANXIETY / AGITATION Last administered on 08/16/16 21:25; Start 08/08/16 at 14:45; Stop 08/20/16 at 12:24; Status DC Levetiracetam (Keppra) 500 mg Q12HR PO Last administered on 08/15/16 21:30; Start 08/08/16 at 21:00; Stop 08/16/16 at 17:14; Status DC Multivitamins 10 ml/Folic Acid 1 mg/Thiamine HCl 100 mg/Sodium Chloride 1,011.2 ml @ 100 mls/ hr Q24H IV Last administered on 08/17/16 16:12; Start 08/08/16 at 16:00; Stop 08/17/16 at 16:20; Status DC Lorazepam (Ativan) 2 mg PRN Q4HRS PRN IV ANXIETY / AGITATION Last administered on 08/10/16 11:11; Start 08/08/16 at 15:15; Stop 08/13/16 at 11:08; Status DC Aspirin (Zunilda Aspirin) 325 mg DAILY PO Last administered on 08/09/16 09:09; Start 08/09/16 at 09:00; Stop 08/10/16 at 09:48; Status DC Diltiazem HCl (Cardizem 24hr Cd) 240 mg DAILY PO ; Start 08/09/16 at 09:00; Stop 08/10/16 at 09:48; Status DC Lactulose 20 gm Q48H PO Last administered on 08/09/16 09:13; Start 08/09/16 at 09:00; Stop 08/09/16 at 16:32; Status DC Pantoprazole Sodium (Protonix) 40 mg DAILYAC PO ; Start 08/09/16 at 07:30; Stop 08/09/16 at 09:36; Status DC Non-Formulary Medication 100 mg DAILY PO Last administered on 08/13/16 10:02; Start 08/09/16 at 09:00; Stop 08/13/16 at 11:09; Status UNV Pantoprazole Sodium (Protonix Vial) 40 mg DAILYAC IVP Last administered on 08/18 09:24; Start 08/09/16 at 10:00; Stop 08/18/16 at 10:07; Status DC Iohexol (Omnipaque 300 Mg/ml) 75 ml 1X ONCE IV ; Start 08/09/16 at 14:00; Stop 08/09/16 at 14:01; Status DC Info (Do NOT chart on this entry -- for MONITORING) 1 each PRN DAILY PRN MC SEE COMMENTS; Start 08/09/16 at 14:00; Stop 08/11/16 at 13:59; Status DC Lactulose 20 gm BID PO Last administered on 08/11/16 10:27; Start 08/09/16 at 21:00; Stop 08/11/16 at 10:52; Status DC Lorazepam (Ativan) 2 mg PRN Q1HR PRN IV For CIWA 8-14 Last administered on 08/22 14:03; Start 08/09/16 at 20:45 Lorazepam (Ativan) 4 mg PRN Q1HR PRN IV For CIWA 15 or greater Last administered on 08/23/16 05:02; Start 08/09/16 at 20:45 Haloperidol Lactate (Haldol) 5 mg PRN Q4HRS PRN IVP Hallucinatns,Confusn, Delirium Last administered on 08/10/16 12:29; Start 08/09/16 at 20:45; Stop at 10:11; Status DC Metoprolol Tartrate (Lopressor) 5 mg PRN Q4HRS PRN IVP ELEVATED BP, SEE COMMENTS Last administered on 08/10/16 02:49; Start 08/09/16 at 22:15; Stop at 09:48; Status DC Diltiazem HCl (Cardizem) 5 mg 1X ONCE IVP Last administered on 08/10/16 08:22 ; Start 08/10/16 at 08:15; Stop 08/10/16 at 08:16; Status DC Metoprolol Tartrate (Lopressor) 5 mg Q6HRS PRN IVP ELEVATED BP, SEE COMMENTS; Start 08/10/16 at 09:45; Stop 08/10/16 at 10:05; Status DC Aspirin (Aspirin) 300 mg DAILY ND Last administered on 08/12/16 08:21; Start 08/10/16 at 09:45; Stop 08/12/16 at 11:14; Status DC Magnesium Sulfate/ Dextrose 50 ml @ 25 mls/hr 1X ONCE IV Last administered on 08/10/16 10:56; Start 08/10/16 at 10:00; Stop 08/10/16 at 11:59; Status DC Metoprolol Tartrate (Lopressor) 5 mg Q6HRS IVP Last administered on 08/12/16 05:00; Start 08/10/16 at 10:15; Stop 08/12/16 at 11:14; Status DC Enoxaparin Sodium (Lovenox 30mg Syringe) 30 mg Q24H SQ ; Start 08/10/16 at 15:00 ; Stop 08/10/16 at 15:00; Status DC Enoxaparin Sodium (Lovenox 40mg Syringe) 40 mg Q24H SQ Last administered on 15:52; Start 08/10/16 at 15:00 Acetaminophen (Tylenol) 650 mg PRN Q6HRS PRN PEG MILD PAIN / TEMP Last administered on 08/19/16 21:13; Start 08/10/16 at 23:45 Succinylcholine Chloride (Anectine) 200 mg STK-MED ONCE .ROUTE ; Start 08/11/16 at 01:30; Stop 08/11/16 at 01:31; Status DC Succinylcholine Chloride (Anectine) 200 mg STK-MED ONCE .ROUTE ; Start 08/11/16 at 01:30; Stop 08/11/16 at 08:48; Status DC Haloperidol Lactate (Haldol) 2.5 mg PRN Q4HRS PRN IVP Hallucinatns,Confusn, Delirium; Start 08/11/16 at 10:15 Potassium Chloride (KCl Oral Soln) 40 meq 1X ONCE PEG Last administered on 10:30; Start 08/11/16 at 10:30; Stop 08/11/16 at 10:31; Status DC Potassium Chloride (KCl Oral Soln) 40 meq 1X ONCE PEG Last administered on 16:00; Start 08/11/16 at 15:00; Stop 08/11/16 at 15:01; Status DC Digoxin (Lanoxin) 500 mcg 1X ONCE IV Last administered on 08/11/16 10:30; Start 08/11/16 at 10:30; Stop 08/11/16 at 10:31; Status DC Lactulose 20 gm QD PO Last administered on 08/14/16 09:54; Start 08/12/16 at 09:00; Stop 08/15/16 at 11:50; Status DC Phenylephrine HCl 20 mg/Sodium Chloride 252 ml @ 0 mls/hr 1X ONCE IV ; Start at 14:30; Stop 08/11/16 at 14:31; Status Cancel Magnesium Sulfate/ Dextrose 50 ml @ 25 mls/hr 1X ONCE IV Last administered on 08/12/16 09:32; Start 08/12/16 at 09:00; Stop 08/12/16 at 10:59; Status DC Magnesium Sulfate/ Dextrose 50 ml @ 25 mls/hr 1X ONCE IV Last administered on 08/12/16 17:56; Start 08/12/16 at 16:00; Stop 08/12/16 at 17:59; Status DC Potassium Chloride (KCl Oral Soln) 20 meq BID PEG Last administered on 21:52; Start 08/12/16 at 11:15; Stop 08/13/16 at 09:46; Status DC Diltiazem HCl (Cardizem) 60 mg Q6HRS PO Last administered on 08/25/16 05:34; Start 08/12/16 at 11:30 Metoprolol Tartrate (Lopressor) 25 mg BID FT Last administered on 08/12/16 21: 53; Start 08/12/16 at 21:00; Stop 08/13/16 at 09:46; Status DC Aspirin (Zunilda Aspirin) 325 mg [id number] FT Last administered on 08/25/16 07: 53; Start 08/13/16 at 08:00 Ceftriaxone Sodium 1 gm/ Sodium Chloride 50 ml @ 100 mls/hr Q24H IV Last administered on 08/16/16 17:51; Start 08/12/16 at 17:00; Stop 08/17/16 at 10:33 ; Status DC Metoprolol Tartrate (Lopressor) 50 mg BID FT Last administered on 08/22/16 09: 39; Start 08/13/16 at 10:00; Stop 08/23/16 at 10:06; Status DC Potassium Chloride (KCl Oral Soln) 20 meq TID PEG Last administered on 21:33; Start 08/13/16 at 10:00; Stop 08/23/16 at 10:07; Status DC Magnesium Sulfate/ Dextrose 50 ml @ 25 mls/hr 1X ONCE IV Last administered on 08/13/16 11:26; Start 08/13/16 at 10:00; Stop 08/13/16 at 11:59; Status DC Potassium Chloride (Klor-Con) 40 meq 1X ONCE PO ; Start 08/15/16 at 14:00; Stop 08/15/16 at 14:01; Status DC Barium Sulfate (Varibar Thin Liquid Apple) 148 gm 1X ONCE PO Last administered on 08/16/16 12:55; Start 08/16/16 at 12:00; Stop 08/16/16 at 12:01 ; Status DC Levetiracetam (Keppra) 250 mg Q12HR PO Last administered on 08/19/16 08:56; Start 08/16/16 at 21:00; Stop 08/19/16 at 16:31; Status DC Rifaximin (Xifaxan) 550 mg Q12HR PO Last administered on 08/25/16 08:07; Start 08/17/16 at 13:30 Thiamine Mononitrate (Vitamin B-1) 100 mg DAILY PO Last administered on 08:01; Start 08/17/16 at 17:00 Potassium Chloride (Klor-Con) 40 meq 1X ONCE PO ; Start 08/18/16 at 09:45; Stop 08/18/16 at 09:46; Status Cancel Lansoprazole (Prevacid) 30 mg DAILY FT Last administered on 08/25/16 08:01; Start 08/19/16 at 09:00 Potassium Chloride (KCl Oral Soln) 20 meq 1X ONCE PEG Last administered on 13:13; Start 08/18/16 at 13:00; Stop 08/18/16 at 13:10; Status DC Acetaminophen/ Hydrocodone Bitart (Lortab 7.5-325/ 15ml Oral Solution) 10 ml PRN Q6HRS PRN NG MODERATE TO SEVERE PAIN Last administered on 08/22/16 12:55; Start 08/19/16 at 15:15; Stop 08/22/16 at 13:26; Status DC Levetiracetam (Keppra) 125 mg BID PO Last administered on 08/21/16 08:08; Start 08/19/16 at 21:00; Stop 08/21/16 at 09:03; Status DC Levetiracetam (Keppra) 125 mg BID PO Last administered on 08/22/16 09:40; Start 08/21/16 at 21:00; Stop 08/22/16 at 17:03; Status DC Acetaminophen/ Hydrocodone Bitart (Lortab 7.5-325/ 15ml Oral Solution) 10 ml PRN Q4HRS PRN NG MODERATE TO SEVERE PAIN Last administered on 08/25/16 05:33; Start 08/22/16 at 15:15 Amino Acids/ Glycerin/ Electrolytes 1,000 ml @ 80 mls/hr [id number] IV Last administered on 08/25/16 10:19; Start 08/22/16 at 17:00 Levetiracetam 125 mg/Sodium Chloride 101.25 ml @ 400 mls/ hr Q12HR IV Last administered on 08/25/16 08:02; Start 08/22/16 at 21:00; Stop 08/25/16 at 10:15 ; Status DC Morphine Sulfate 2 mg PRN Q2HR PRN IV PAIN Last administered on 08/23/16 07:18 ; Start 08/22/16 at 18:15; Stop 08/23/16 at 09:39; Status DC Morphine Sulfate 4 mg PRN Q2HR PRN IV PAIN Last administered on 08/25/16 07:55 ; Start 08/23/16 at 09:45 Fentanyl Citrate (Fentanyl 2ml Vial) 75 mcg 1X ONCE IV Last administered on 09:53; Start 08/23/16 at 09:45; Stop 08/23/16 at 09:49; Status DC Potassium Chloride (KCl Oral Soln) 20 meq DAILY PEG Last administered on 08:08; Start 08/24/16 at 09:00 Active Scripts Active Lactulose 20 Gm/30 Ml Solution 20 Gm PO QODAY Ativan (Lorazepam) 0.5 Mg Tablet 0.5 Mg PO BID Diltiazem 24HR Cd (Diltiazem Hcl) 240 Mg Cap.er.24h 240 Mg PO DAILY Vitamin B-1 (Thiamine Hcl) 100 Mg Tablet 100 Mg PO DAILY Cocoa 5-325 Tablet (Acetaminophen/Hydrocodone Bitart) 1 Each Tablet 1 Tab PO PRN Q6HRS PRN Reported Omeprazole 20 Mg Capsule.dr 20 Mg PO DAILY Zofran Odt (Ondansetron) 8 Mg Tab.rapdis 1 Tab PO PRN Q8HRS PRN [place] 4.2-0.7 mg Film (Buprenorphine HCl/Naloxone HCl) 1 Each Film 1 Each BC DAILY Vitals/I & O Vital Sign - Last 24 Hours 08/24/16 08/24/16 08/24/16 08/24/16 12:31 13:05 15:20 15:41 Temp 97.7 97.7 Pulse 80 Resp 16 18 B/P (MAP) 111/82 (92) Pulse Ox 96 96 O2 Delivery Room Air Room Air Room Air Room Air O2 Flow Rate 3.5 08/24/16 08/24/16 08/24/16 08/24/16 16:01 18:31 18:37 19:00 Temp 97.5 97.5 Pulse 87 62 Resp 16 B/P (MAP) 112/81 112/65 (81) Pulse Ox 99 O2 Delivery Room Air Room Air Room Air 08/24/16 08/24/16 08/24/16 08/24/16 19:30 20:00 20:48 23:00 Temp 97.4 97.4 Pulse 63 Resp 16 B/P (MAP) 111/75 (87) Pulse Ox 96 96 97 O2 Delivery Room Air Room Air Room Air Room Air O2 Flow Rate 3.5 3.5 08/24/16 08/25/16 08/25/16 08/25/16 23:57 00:01 03:00 04:18 Temp 97.5 97.5 Pulse 63 63 Resp 16 20 B/P (MAP) 111/75 117/75 (89) Pulse Ox 97 97 97 O2 Delivery Room Air Room Air Room Air O2 Flow Rate 3.5 3.5 08/25/16 08/25/16 08/25/16 08/25/16 05:33 05:34 06:33 07:00 Temp 98.2 98.2 Pulse 72 59 Resp 18 B/P (MAP) 108/69 103/59 (74) Pulse Ox 97 97 96 O2 Delivery Room Air Room Air Room Air O2 Flow Rate 3.5 3.5 08/25/16 08/25/16 08/25/16 08/25/16 07:18 07:55 08:00 08:25 Resp 16 16 Pulse Ox 99 99 99 O2 Delivery Room Air Room Air Room Air Room Air O2 Flow Rate 3.5 3.5 3.5 08/25/16 08/25/16 08/25/16 10:38 10:39 10:41 Temp 98.1 98.1 Pulse 55 Resp 18 B/P (MAP) 97/58 (71) 93/60 (71) Pulse Ox 95 O2 Delivery Room Air Room Air Intake and Output 08/24/16 08/24/16 08/25/16 15:00 23:00 07:00 Intake Total 0 ml 0 ml Balance 0 ml 0 ml VALENTINO CABRERA MD Aug 25, 2016 11:28
[2016-08-25] MEDS: ENOXAPARIN 40 MG/0.4 ML SYRINGE. SQ SCH (15:18)
[2016-08-26] MEDS: MORPHINE SULFATE 2 MG/ML DISP.SYRIN. IV PRN ×6 (00:34→23:56)
[2016-08-26 03:00] VITALS: BP 104/60
[2016-08-26] MEDS: dilTIAZem HCL 30 MG TABLET PO SCH ×4 (05:02→18:00)
[2016-08-26 07:00] VITALS: BP 113/64
[2016-08-26] MEDS: IPRATROPIUM BROMIDE 0.5 MG/2.5 ML NEBU. NEB SCH ×4 (07:05→19:08)
[2016-08-26] MEDS: THIAMINE 100 MG TABLET. PO SCH (08:06)
[2016-08-26] MEDS: ASPIRIN 325 MG TABLET FT SCH (08:07)
[2016-08-26] MEDS: POTASSIUM CHLORIDE 20 MEQ/15 ML ORAL LIQUID. PEG SCH (08:07)
[2016-08-26] MEDS: rifAXIMin 550 MG TABLET PO SCH ×2 (08:07→20:12)
[2016-08-26] MEDS: LANSOPRAZOLE 30 MG TAB.RAP.DR FT SCH (08:07)
[2016-08-26] MEDS: LIDOCAINE (700MG/PATCH) PATCH. TD SCH (10:50)
[2016-08-26 11:00] VITALS: BP 118/81
[2016-08-26] MEDS: AMINO AC 3%/ELECTROLYTE/GLYCER 1,000 ML IV SCH (11:06)
--- NOTE | 2016-08-26 14:27 | PDOC ---
PROGRESS NOTES Assessment Problems Medical Problems: (1) Alcohol withdrawal Status: Acute (2) Hepatic encephalopathy Status: Acute (3) Lactic acid acidosis Status: Acute (4) Respiratory failure Status: Acute Seizure x 2 on 08/08/16, alcohol related. Metabolic encephalopathy. Tiny right frontal and parietal junction infract, asymptomatic, incidental finding. Dysphagia, has NG tube Plan As [facility] won't accept him, I discussed with Dr. Pittman for him to see patient, possibly bronchoscope for any vocal cord pathology. This will negate need for transfer to . I warned patient and that we may find an untreatable condition, but at least we'll have prognosis information. Also disc'd with Ms. Hilton, WOUND CARE TECHNICIAN Subjective continued back pain Objective Vital Signs Date Time Temp Pulse Resp B/P (MAP) Pulse Ox O2 Delivery O2 Flow Rate FiO2 08/26/16 12:17 16 98 Room Air 3.5 08/26/16 11:00 98.6 66 118/81 (93) 98.6 Intake and Output 08/26/16 07:00 Intake Total 1000 ml Output Total 1625 ml Balance -625 ml Intake Oral 0 ml IV Total 1000 ml Output Urine Total 1625 ml PHYSICAL EXAM Alert. Oriented to time, place and person. PERRL. EOMI. CN: no focal findings. Muscle tone: normal. Muscle strength: 5-/5 DTR: 2+ Plantar reflex: flexor Gait: not examined in bed. Sensory exam: no abnormal findings. Review of Relevant I have reviewed the following items chikis (where applicable) has been applied. Labs Microbiology 08/11/16 Blood Culture - Final, Complete NO GROWTH AFTER 5 DAYS 08/11/16 Urine Culture - Final, Complete 08/11/16 Urine Culture Result 1 (JENNY) - Final, Complete 08/11/16 Antimicrobic Susceptibility - Final, Complete Medications Current Medications Diltiazem HCl (Cardizem) 25 mg STK-MED ONCE .ROUTE ; Start 08/08/16 at 10:37; Stop 08/08/16 at 10:38; Status DC Diltiazem HCl 125 mg/Dextrose 125 ml @ 0 mls/hr CONT PRN IV SEE I/O RECORD Last administered on 08/12/16t 06:20; Start 08/08/16 at 11:00; Stop 08/12/16 at 12:30; Status DC Diltiazem HCl (Cardizem) 20 mg 1X ONCE IVP Last administered on 08/08/16 10: 40; Start 08/08/16 at 11:00; Stop 08/08/16 at 11:01; Status DC Lorazepam (Ativan) 2 mg STK-MED ONCE .ROUTE ; Start 08/08/16 at 10:55; Stop 01/14 at 10:56; Status DC Iohexol (Omnipaque 350 Mg/ml) 90 ml 1X ONCE IV Last administered on 08/08/16 11:15; Start 08/08/16 at 11:15; Stop 08/08/16 at 11:16; Status DC Propofol 20 ml @ 0 mls/hr 1X ONCE IV Last administered on 08/08/16 11:20; Start 08/08/16 at 11:15; Stop 08/08/16 at 11:16; Status DC Info (Do NOT chart on this entry -- for MONITORING) 1 each PRN DAILY PRN MC SEE COMMENTS; Start 08/08/16 at 11:15; Stop 08/10/16 at 09:37; Status DC Fentanyl Citrate (Fentanyl 2ml Vial) 100 mcg 1X ONCE IV Last administered on 11:03; Start 08/08/16 at 11:15; Stop 08/08/16 at 11:16; Status DC Fentanyl Citrate (Fentanyl 2ml Vial) 100 mcg 1X ONCE IV Last administered on 11:16; Start 08/08/16 at 11:15; Stop 08/08/16 at 11:16; Status DC Propofol 50 ml @ As Directed STK-MED ONCE IV ; Start 08/08/16 at 11:17; Stop 01/14 at 11:18; Status DC Ondansetron HCl (Zofran) 4 mg PRN Q8HRS PRN IV NAUSEA/VOMITING; Start 08/08/16 at 11:30; Stop 08/09/16 at 11:29; Status DC Fentanyl Citrate (Fentanyl 2ml Vial) 50 mcg PRN Q2HR PRN IV PAIN Last administered on 08/08/16 13:16; Start 08/08/16 at 11:30; Stop 08/09/16 at 11:29 ; Status DC Levetiracetam 1000 mg/Sodium Chloride 110 ml @ 440 mls/hr 1X ONCE IV Last administered on 08/08/16 11:39; Start 08/08/16 at 11:45; Stop 08/08/16 at 11:59 ; Status DC Fentanyl Citrate (Fentanyl 2ml Vial) 100 mcg 1X ONCE IV ; Start 08/08/16 at 11: 45; Stop 08/08/16 at 11:46; Status DC Propofol 50 ml @ As Directed STK-MED ONCE IV ; Start 08/08/16 at 12:09; Stop 01/14 at 12:10; Status DC Lorazepam (Ativan) 2 mg 1X ONCE IV ; Start 08/08/16 at 13:00; Stop 08/08/16 at 13:01; Status DC Succinylcholine Chloride (Anectine) 100 mg 1X ONCE IV ; Start 08/08/16 at 13:00 ; Stop 08/08/16 at 13:01; Status DC Etomidate (Amidate) 20 mg 1X ONCE IV ; Start 08/08/16 at 13:00; Stop 08/08/16 at 13:01; Status DC Propofol 100 ml @ 0 mls/hr CONT PRN IV PER PROTOCOL Last administered on 09:08; Start 08/08/16 at 13:45; Stop 08/11/16 at 10:11; Status DC Fentanyl Citrate (Fentanyl 2ml Vial) 50 mcg PRN Q1HR PRN IV COMM Last administered on 08/19/16 15:12; Start 08/08/16 at 13:45; Stop 08/19/16 at 15:17 ; Status DC Chlorhexidine Gluconate (Peridex) 15 ml BID MM Last administered on 08/09/16 09:08; Start 08/08/16 at 21:00; Stop 08/10/16 at 08:29; Status DC Ipratropium [place] (Atrovent) 0.5 mg RTQID NEB Last administered on 08/26/16 10:52; Start 08/08/16 at 16:00 Metoprolol Tartrate (Lopressor) 12.5 mg BID PO Last administered on 08/08/16 21:51; Start 08/08/16 at 14:30; Stop 08/10/16 at 09:48; Status DC Lorazepam (Ativan) 1 mg PRN Q4HRS PRN IV ANXIETY / AGITATION Last administered on 08/16/16 21:25; Start 08/08/16 at 14:45; Stop 08/20/16 at 12:24; Status DC Levetiracetam (Keppra) 500 mg Q12HR PO Last administered on 08/15/16 21:30; Start 08/08/16 at 21:00; Stop 08/16/16 at 17:14; Status DC Multivitamins 10 ml/Folic Acid 1 mg/Thiamine HCl 100 mg/Sodium Chloride 1,011.2 ml @ 100 mls/ hr Q24H IV Last administered on 08/17/16 16:12; Start 08/08/16 at 16:00; Stop 08/17/16 at 16:20; Status DC Lorazepam (Ativan) 2 mg PRN Q4HRS PRN IV ANXIETY / AGITATION Last administered on 08/10/16 11:11; Start 08/08/16 at 15:15; Stop 08/13/16 at 11:08; Status DC Aspirin (Zunilda Aspirin) 325 mg DAILY PO Last administered on 08/09/16 09:09; Start 08/09/16 at 09:00; Stop 08/10/16 at 09:48; Status DC Diltiazem HCl (Cardizem 24hr Cd) 240 mg DAILY PO ; Start 08/09/16 at 09:00; Stop 08/10/16 at 09:48; Status DC Lactulose 20 gm Q48H PO Last administered on 08/09/16 09:13; Start 08/09/16 at 09:00; Stop 08/09/16 at 16:32; Status DC Pantoprazole Sodium (Protonix) 40 mg DAILYAC PO ; Start 08/09/16 at 07:30; Stop 08/09/16 at 09:36; Status DC Non-Formulary Medication 100 mg DAILY PO Last administered on 08/13/16 10:02; Start 08/09/16 at 09:00; Stop 08/13/16 at 11:09; Status UNV Pantoprazole Sodium (Protonix Vial) 40 mg DAILYAC IVP Last administered on 08/18 09:24; Start 08/09/16 at 10:00; Stop 08/18/16 at 10:07; Status DC Iohexol (Omnipaque 300 Mg/ml) 75 ml 1X ONCE IV ; Start 08/09/16 at 14:00; Stop 08/09/16 at 14:01; Status DC Info (Do NOT chart on this entry -- for MONITORING) 1 each PRN DAILY PRN MC SEE COMMENTS; Start 08/09/16 at 14:00; Stop 08/11/16 at 13:59; Status DC Lactulose 20 gm BID PO Last administered on 08/11/16 10:27; Start 08/09/16 at 21:00; Stop 08/11/16 at 10:52; Status DC Lorazepam (Ativan) 2 mg PRN Q1HR PRN IV For CIWA 8-14 Last administered on 08/22 14:03; Start 08/09/16 at 20:45 Lorazepam (Ativan) 4 mg PRN Q1HR PRN IV For CIWA 15 or greater Last administered on 08/23/16 05:02; Start 08/09/16 at 20:45 Haloperidol Lactate (Haldol) 5 mg PRN Q4HRS PRN IVP Hallucinatns,Confusn, Delirium Last administered on 08/10/16 12:29; Start 08/09/16 at 20:45; Stop at 10:11; Status DC Metoprolol Tartrate (Lopressor) 5 mg PRN Q4HRS PRN IVP ELEVATED BP, SEE COMMENTS Last administered on 08/10/16 02:49; Start 08/09/16 at 22:15; Stop at 09:48; Status DC Diltiazem HCl (Cardizem) 5 mg 1X ONCE IVP Last administered on 08/10/16 08:22 ; Start 08/10/16 at 08:15; Stop 08/10/16 at 08:16; Status DC Metoprolol Tartrate (Lopressor) 5 mg Q6HRS PRN IVP ELEVATED BP, SEE COMMENTS; Start 08/10/16 at 09:45; Stop 08/10/16 at 10:05; Status DC Aspirin (Aspirin) 300 mg DAILY DE Last administered on 08/12/16 08:21; Start 08/10/16 at 09:45; Stop 08/12/16 at 11:14; Status DC Magnesium Sulfate/ Dextrose 50 ml @ 25 mls/hr 1X ONCE IV Last administered on 08/10/16 10:56; Start 08/10/16 at 10:00; Stop 08/10/16 at 11:59; Status DC Metoprolol Tartrate (Lopressor) 5 mg Q6HRS IVP Last administered on 08/12/16 05:00; Start 08/10/16 at 10:15; Stop 08/12/16 at 11:14; Status DC Enoxaparin Sodium (Lovenox 30mg Syringe) 30 mg Q24H SQ ; Start 08/10/16 at 15:00 ; Stop 08/10/16 at 15:00; Status DC Enoxaparin Sodium (Lovenox 40mg Syringe) 40 mg Q24H SQ Last administered on 15:18; Start 08/10/16 at 15:00 Acetaminophen (Tylenol) 650 mg PRN Q6HRS PRN PEG MILD PAIN / TEMP Last administered on 08/19/16 21:13; Start 08/10/16 at 23:45 Succinylcholine Chloride (Anectine) 200 mg STK-MED ONCE .ROUTE ; Start 08/11/16 at 01:30; Stop 08/11/16 at 01:31; Status DC Succinylcholine Chloride (Anectine) 200 mg STK-MED ONCE .ROUTE ; Start 08/11/16 at 01:30; Stop 08/11/16 at 08:48; Status DC Haloperidol Lactate (Haldol) 2.5 mg PRN Q4HRS PRN IVP Hallucinatns,Confusn, Delirium; Start 08/11/16 at 10:15 Potassium Chloride (KCl Oral Soln) 40 meq 1X ONCE PEG Last administered on 10:30; Start 08/11/16 at 10:30; Stop 08/11/16 at 10:31; Status DC Potassium Chloride (KCl Oral Soln) 40 meq 1X ONCE PEG Last administered on 16:00; Start 08/11/16 at 15:00; Stop 08/11/16 at 15:01; Status DC Digoxin (Lanoxin) 500 mcg 1X ONCE IV Last administered on 08/11/16 10:30; Start 08/11/16 at 10:30; Stop 08/11/16 at 10:31; Status DC Lactulose 20 gm QD PO Last administered on 08/14/16 09:54; Start 08/12/16 at 09:00; Stop 08/15/16 at 11:50; Status DC Phenylephrine HCl 20 mg/Sodium Chloride 252 ml @ 0 mls/hr 1X ONCE IV ; Start at 14:30; Stop 08/11/16 at 14:31; Status Cancel Magnesium Sulfate/ Dextrose 50 ml @ 25 mls/hr 1X ONCE IV Last administered on 08/12/16 09:32; Start 08/12/16 at 09:00; Stop 08/12/16 at 10:59; Status DC Magnesium Sulfate/ Dextrose 50 ml @ 25 mls/hr 1X ONCE IV Last administered on 08/12/16 17:56; Start 08/12/16 at 16:00; Stop 08/12/16 at 17:59; Status DC Potassium Chloride (KCl Oral Soln) 20 meq BID PEG Last administered on 21:52; Start 08/12/16 at 11:15; Stop 08/13/16 at 09:46; Status DC Diltiazem HCl (Cardizem) 60 mg Q6HRS PO Last administered on 08/26/16 05:02; Start 08/12/16 at 11:30 Metoprolol Tartrate (Lopressor) 25 mg BID FT Last administered on 08/12/16 21: 53; Start 08/12/16 at 21:00; Stop 08/13/16 at 09:46; Status DC Aspirin (Zunilda Aspirin) 325 mg [id number] FT Last administered on 08/26/16 08: 07; Start 08/13/16 at 08:00 Ceftriaxone Sodium 1 gm/ Sodium Chloride 50 ml @ 100 mls/hr Q24H IV Last administered on 08/16/16 17:51; Start 08/12/16 at 17:00; Stop 08/17/16 at 10:33 ; Status DC Metoprolol Tartrate (Lopressor) 50 mg BID FT Last administered on 08/22/16 09: 39; Start 08/13/16 at 10:00; Stop 08/23/16 at 10:06; Status DC Potassium Chloride (KCl Oral Soln) 20 meq TID PEG Last administered on 21:33; Start 08/13/16 at 10:00; Stop 08/23/16 at 10:07; Status DC Magnesium Sulfate/ Dextrose 50 ml @ 25 mls/hr 1X ONCE IV Last administered on 08/13/16 11:26; Start 08/13/16 at 10:00; Stop 08/13/16 at 11:59; Status DC Potassium Chloride (Klor-Con) 40 meq 1X ONCE PO ; Start 08/15/16 at 14:00; Stop 08/15/16 at 14:01; Status DC Barium Sulfate (Varibar Thin Liquid Apple) 148 gm 1X ONCE PO Last administered on 08/16/16 12:55; Start 08/16/16 at 12:00; Stop 08/16/16 at 12:01 ; Status DC Levetiracetam (Keppra) 250 mg Q12HR PO Last administered on 08/19/16 08:56; Start 08/16/16 at 21:00; Stop 08/19/16 at 16:31; Status DC Rifaximin (Xifaxan) 550 mg Q12HR PO Last administered on 08/26/16 08:07; Start 08/17/16 at 13:30 Thiamine Mononitrate (Vitamin B-1) 100 mg DAILY PO Last administered on 08:06; Start 08/17/16 at 17:00 Potassium Chloride (Klor-Con) 40 meq 1X ONCE PO ; Start 08/18/16 at 09:45; Stop 08/18/16 at 09:46; Status Cancel Lansoprazole (Prevacid) 30 mg DAILY FT Last administered on 08/26/16 08:07; Start 08/19/16 at 09:00 Potassium Chloride (KCl Oral Soln) 20 meq 1X ONCE PEG Last administered on 13:13; Start 08/18/16 at 13:00; Stop 08/18/16 at 13:10; Status DC Acetaminophen/ Hydrocodone Bitart (Lortab 7.5-325/ 15ml Oral Solution) 10 ml PRN Q6HRS PRN NG MODERATE TO SEVERE PAIN Last administered on 08/22/16 12:55; Start 08/19/16 at 15:15; Stop 08/22/16 at 13:26; Status DC Levetiracetam (Keppra) 125 mg BID PO Last administered on 08/21/16 08:08; Start 08/19/16 at 21:00; Stop 08/21/16 at 09:03; Status DC Levetiracetam (Keppra) 125 mg BID PO Last administered on 08/22/16 09:40; Start 08/21/16 at 21:00; Stop 08/22/16 at 17:03; Status DC Acetaminophen/ Hydrocodone Bitart (Lortab 7.5-325/ 15ml Oral Solution) 10 ml PRN Q4HRS PRN NG MODERATE TO SEVERE PAIN Last administered on 08/25/16 05:33; Start 08/22/16 at 15:15 Amino Acids/ Glycerin/ Electrolytes 1,000 ml @ 80 mls/hr [id number] IV Last administered on 08/25/16 10:19; Start 08/22/16 at 17:00 Levetiracetam 125 mg/Sodium Chloride 101.25 ml @ 400 mls/ hr Q12HR IV Last administered on 08/25/16 08:02; Start 08/22/16 at 21:00; Stop 08/25/16 at 10:15 ; Status DC Morphine Sulfate 2 mg PRN Q2HR PRN IV PAIN Last administered on 08/23/16 07:18 ; Start 08/22/16 at 18:15; Stop 08/23/16 at 09:39; Status DC Morphine Sulfate 4 mg PRN Q2HR PRN IV PAIN Last administered on 08/26/16 11:47 ; Start 08/23/16 at 09:45 Fentanyl Citrate (Fentanyl 2ml Vial) 75 mcg 1X ONCE IV Last administered on 09:53; Start 08/23/16 at 09:45; Stop 08/23/16 at 09:49; Status DC Potassium Chloride (KCl Oral Soln) 20 meq DAILY PEG Last administered on 08:07; Start 08/24/16 at 09:00 Lidocaine (Lidoderm) 1 patch DAILY TD Last administered on 08/26/16 10:50; Start 08/26/16 at 11:00 Active Scripts Active Lactulose 20 Gm/30 Ml Solution 20 Gm PO QODAY Ativan (Lorazepam) 0.5 Mg Tablet 0.5 Mg PO BID Diltiazem 24HR Cd (Diltiazem Hcl) 240 Mg Cap.er.24h 240 Mg PO DAILY Vitamin B-1 (Thiamine Hcl) 100 Mg Tablet 100 Mg PO DAILY [place] 5-325 Tablet (Acetaminophen/Hydrocodone Bitart) 1 Each Tablet 1 Tab PO PRN Q6HRS PRN Reported Omeprazole 20 Mg Capsule.dr 20 Mg PO DAILY Zofran Odt (Ondansetron) 8 Mg Tab.rapdis 1 Tab PO PRN Q8HRS PRN [place] 4.2-0.7 mg Film (Buprenorphine HCl/Naloxone HCl) 1 Each Film 1 Each BC DAILY Vitals/I & O Vital Sign - Last 24 Hours 08/25/16 08/25/16 08/25/16 08/25/16 14:33 15:00 16:18 18:28 Temp 98.1 98.1 Pulse 63 63 Resp 18 B/P (MAP) 108/67 (81) 108/67 Pulse Ox 98 O2 Delivery Room Air Room Air Room Air 08/25/16 08/25/16 08/25/16 08/25/16 19:00 19:18 20:00 20:40 Temp 97.7 97.7 Pulse 63 Resp 18 B/P (MAP) 147/81 (103) Pulse Ox 99 98 O2 Delivery Room Air Room Air Room Air Room Air O2 Flow Rate 3.5 3.5 08/25/16 08/26/16 08/26/16 08/26/16 23:00 00:00 00:34 03:00 Temp 96.8 97.5 96.8 97.5 Pulse 57 57 63 Resp 18 18 B/P (MAP) 98/60 (73) 98/60 104/60 (75) Pulse Ox 97 97 98 O2 Delivery Room Air Room Air Room Air O2 Flow Rate 3.5 08/26/16 08/26/16 08/26/16 08/26/16 05:01 05:02 07:00 07:06 Temp 97.7 97.7 Pulse 63 64 Resp 18 B/P (MAP) 104/60 113/64 (80) Pulse Ox 98 O2 Delivery Room Air Room Air Room Air O2 Flow Rate 3.5 08/26/16 08/26/16 08/26/16 08/26/16 08:00 08:02 10:53 11:00 Temp 98.6 98.6 Pulse 66 Resp 18 18 B/P (MAP) 118/81 (93) Pulse Ox 98 O2 Delivery Room Air Room Air Room Air Room Air O2 Flow Rate 3.5 3.5 08/26/16 08/26/16 11:47 12:17 Resp 16 16 Pulse Ox 98 98 O2 Delivery Room Air Room Air O2 Flow Rate 3.5 3.5 Intake and Output 08/25/16 08/25/16 08/26/16 15:00 23:00 07:00 Intake Total 0 ml 1000 ml Output Total 800 ml 825 ml Balance -800 ml 175 ml VALENTINO CABRERA MD Aug 26, 2016 14:27
--- NOTE | 2016-08-26 14:51 | PDOC ---
PROGRESS NOTES Chief Complaint Chief Complaint cc: seizure like activity dysphagia, weakness Acute hypoxic respiratory failure: Extubated 08/09, on NC Hepatic encephalopathy, now much improved Possible alcohol withdrawal seizures: with alcohol Chronic alcohol abuse Physical debility and weakness. , Paroxysmal, Afib: on Cardizem, rate controlled. Oropharyngeal dysphagia: , tube feeds. failed swallow study Hypokalemia: replaced, Hx hep C plan:fu with gi, neuro as per neuro, will get dr. Pittman to do bronch to see the vocal cord if there is any disfunction talked to and pt with SW today, pt very upset no progress here, wants to go [facility] or . i TALked to [facility] who will see him as oupt on 09/18, still, wont fix his dysphagia in a quick way. pt has no insurance, not sure can do home NGT feeding or just go home with eating with asp risks. ISAIAS fu. dc pending. DNR now History of Present Illness History of Present Illness clear mentally today Dobhoff placed for feeds 08/25 voice better today, feels stronger discussed with speech at length, pt may need ENT eval at some point if swallow still struggles looks better DNR, was discussed with palliative care and family today Vitals Vitals Vital Signs Date Time Temp Pulse Resp B/P (MAP) Pulse Ox O2 Delivery O2 Flow Rate FiO2 08/26/16 12:17 16 98 Room Air 3.5 08/26/16 11:00 98.6 66 118/81 (93) 98.6 Physical Exam General: Alert, Cooperative, No acute distress Heart: Regular rate Lungs: Clear Abdomen: Normal bowel sounds, No tenderness, Other (NG in place) Extremities: No clubbing, No cyanosis, No edema Skin: No significant lesion Review of Systems Review of Systems no fever, chills, sob or chest pain Assessment and Plan Assessmemt and Plan Problems Medical Problems: (1) Alcohol withdrawal Status: Acute (2) Hepatic encephalopathy Status: Acute (3) Lactic acid acidosis Status: Acute (4) Respiratory failure Status: Acute Problems: Comment Review of Relevant I have reviewed the following items chikis (where applicable) has been applied. Labs Microbiology 08/11/16 Blood Culture - Final, Complete NO GROWTH AFTER 5 DAYS 08/11/16 Urine Culture - Final, Complete 08/11/16 Urine Culture Result 1 (JENNY) - Final, Complete 08/11/16 Antimicrobic Susceptibility - Final, Complete Medications Current Medications Diltiazem HCl (Cardizem) 25 mg STK-MED ONCE .ROUTE ; Start 08/08/16 at 10:37; Stop 08/08/16 at 10:38; Status DC Diltiazem HCl 125 mg/Dextrose 125 ml @ 0 mls/hr CONT PRN IV SEE I/O RECORD Last administered on 08/12/16 06:20; Start 08/08/16 at 11:00; Stop 08/12/16 at 12:30; Status DC Diltiazem HCl (Cardizem) 20 mg 1X ONCE IVP Last administered on 08/08/16 10: 40; Start 08/08/16 at 11:00; Stop 08/08/16 at 11:01; Status DC Lorazepam (Ativan) 2 mg STK-MED ONCE .ROUTE ; Start 08/08/16 at 10:55; Stop 01/14 at 10:56; Status DC Iohexol (Omnipaque 350 Mg/ml) 90 ml 1X ONCE IV Last administered on 08/08/16 11:15; Start 08/08/16 at 11:15; Stop 08/08/16 at 11:16; Status DC Propofol 20 ml @ 0 mls/hr 1X ONCE IV Last administered on 08/08/16 11:20; Start 08/08/16 at 11:15; Stop 08/08/16 at 11:16; Status DC Info (Do NOT chart on this entry -- for MONITORING) 1 each PRN DAILY PRN MC SEE COMMENTS; Start 08/08/16 at 11:15; Stop 08/10/16 at 09:37; Status DC Fentanyl Citrate (Fentanyl 2ml Vial) 100 mcg 1X ONCE IV Last administered on 11:03; Start 08/08/16 at 11:15; Stop 08/08/16 at 11:16; Status DC Fentanyl Citrate (Fentanyl 2ml Vial) 100 mcg 1X ONCE IV Last administered on 11:16; Start 08/08/16 at 11:15; Stop 08/08/16 at 11:16; Status DC Propofol 50 ml @ As Directed STK-MED ONCE IV ; Start 08/08/16 at 11:17; Stop 01/14 at 11:18; Status DC Ondansetron HCl (Zofran) 4 mg PRN Q8HRS PRN IV NAUSEA/VOMITING; Start 08/08/16 at 11:30; Stop 08/09/16 at 11:29; Status DC Fentanyl Citrate (Fentanyl 2ml Vial) 50 mcg PRN Q2HR PRN IV PAIN Last administered on 08/08/16 13:16; Start 08/08/16 at 11:30; Stop 08/09/16 at 11:29 ; Status DC Levetiracetam 1000 mg/Sodium Chloride 110 ml @ 440 mls/hr 1X ONCE IV Last administered on 08/08/16 11:39; Start 08/08/16 at 11:45; Stop 08/08/16 at 11:59 ; Status DC Fentanyl Citrate (Fentanyl 2ml Vial) 100 mcg 1X ONCE IV ; Start 08/08/16 at 11: 45; Stop 08/08/16 at 11:46; Status DC Propofol 50 ml @ As Directed STK-MED ONCE IV ; Start 08/08/16 at 12:09; Stop 01/14 at 12:10; Status DC Lorazepam (Ativan) 2 mg 1X ONCE IV ; Start 08/08/16 at 13:00; Stop 08/08/16 at 13:01; Status DC Succinylcholine Chloride (Anectine) 100 mg 1X ONCE IV ; Start 08/08/16 at 13:00 ; Stop 08/08/16 at 13:01; Status DC Etomidate (Amidate) 20 mg 1X ONCE IV ; Start 08/08/16 at 13:00; Stop 08/08/16 at 13:01; Status DC Propofol 100 ml @ 0 mls/hr CONT PRN IV PER PROTOCOL Last administered on 09:08; Start 08/08/16 at 13:45; Stop 08/11/16 at 10:11; Status DC Fentanyl Citrate (Fentanyl 2ml Vial) 50 mcg PRN Q1HR PRN IV COMM Last administered on 08/19/16 15:12; Start 08/08/16 at 13:45; Stop 08/19/16 at 15:17 ; Status DC Chlorhexidine Gluconate (Peridex) 15 ml BID MM Last administered on 08/09/16 09:08; Start 08/08/16 at 21:00; Stop 08/10/16 at 08:29; Status DC Ipratropium Baker (Atrovent) 0.5 mg RTQID NEB Last administered on 08/26/16 14:46; Start 08/08/16 at 16:00 Metoprolol Tartrate (Lopressor) 12.5 mg BID PO Last administered on 08/08/16 21:51; Start 08/08/16 at 14:30; Stop 08/10/16 at 09:48; Status DC Lorazepam (Ativan) 1 mg PRN Q4HRS PRN IV ANXIETY / AGITATION Last administered on 08/16/16 21:25; Start 08/08/16 at 14:45; Stop 08/20/16 at 12:24; Status DC Levetiracetam (Keppra) 500 mg Q12HR PO Last administered on 08/15/16 21:30; Start 08/08/16 at 21:00; Stop 08/16/16 at 17:14; Status DC Multivitamins 10 ml/Folic Acid 1 mg/Thiamine HCl 100 mg/Sodium Chloride 1,011.2 ml @ 100 mls/ hr Q24H IV Last administered on 08/17/16 16:12; Start 08/08/16 at 16:00; Stop 08/17/16 at 16:20; Status DC Lorazepam (Ativan) 2 mg PRN Q4HRS PRN IV ANXIETY / AGITATION Last administered on 08/10/16 11:11; Start 08/08/16 at 15:15; Stop 08/13/16 at 11:08; Status DC Aspirin (Zunilda Aspirin) 325 mg DAILY PO Last administered on 08/09/16 09:09; Start 08/09/16 at 09:00; Stop 08/10/16 at 09:48; Status DC Diltiazem HCl (Cardizem 24hr Cd) 240 mg DAILY PO ; Start 08/09/16 at 09:00; Stop 08/10/16 at 09:48; Status DC Lactulose 20 gm Q48H PO Last administered on 08/09/16 09:13; Start 08/09/16 at 09:00; Stop 08/09/16 at 16:32; Status DC Pantoprazole Sodium (Protonix) 40 mg DAILYAC PO ; Start 08/09/16 at 07:30; Stop 08/09/16 at 09:36; Status DC Non-Formulary Medication 100 mg DAILY PO Last administered on 08/13/16 10:02; Start 08/09/16 at 09:00; Stop 08/13/16 at 11:09; Status UNV Pantoprazole Sodium (Protonix Vial) 40 mg DAILYAC IVP Last administered on 08/18 09:24; Start 08/09/16 at 10:00; Stop 08/18/16 at 10:07; Status DC Iohexol (Omnipaque 300 Mg/ml) 75 ml 1X ONCE IV ; Start 08/09/16 at 14:00; Stop 08/09/16 at 14:01; Status DC Info (Do NOT chart on this entry -- for MONITORING) 1 each PRN DAILY PRN MC SEE COMMENTS; Start 08/09/16 at 14:00; Stop 08/11/16 at 13:59; Status DC Lactulose 20 gm BID PO Last administered on 08/11/16 10:27; Start 08/09/16 at 21:00; Stop 08/11/16 at 10:52; Status DC Lorazepam (Ativan) 2 mg PRN Q1HR PRN IV For CIWA 8-14 Last administered on 08/22 14:03; Start 08/09/16 at 20:45 Lorazepam (Ativan) 4 mg PRN Q1HR PRN IV For CIWA 15 or greater Last administered on 08/23/16 05:02; Start 08/09/16 at 20:45 Haloperidol Lactate (Haldol) 5 mg PRN Q4HRS PRN IVP Hallucinatns,Confusn, Delirium Last administered on 08/10/16 12:29; Start 08/09/16 at 20:45; Stop at 10:11; Status DC Metoprolol Tartrate (Lopressor) 5 mg PRN Q4HRS PRN IVP ELEVATED BP, SEE COMMENTS Last administered on 08/10/16 02:49; Start 08/09/16 at 22:15; Stop at 09:48; Status DC Diltiazem HCl (Cardizem) 5 mg 1X ONCE IVP Last administered on 08/10/16 08:22 ; Start 08/10/16 at 08:15; Stop 08/10/16 at 08:16; Status DC Metoprolol Tartrate (Lopressor) 5 mg Q6HRS PRN IVP ELEVATED BP, SEE COMMENTS; Start 08/10/16 at 09:45; Stop 08/10/16 at 10:05; Status DC Aspirin (Aspirin) 300 mg DAILY KS Last administered on 08/12/16 08:21; Start 08/10/16 at 09:45; Stop 08/12/16 at 11:14; Status DC Magnesium Sulfate/ Dextrose 50 ml @ 25 mls/hr 1X ONCE IV Last administered on 08/10/16 10:56; Start 08/10/16 at 10:00; Stop 08/10/16 at 11:59; Status DC Metoprolol Tartrate (Lopressor) 5 mg Q6HRS IVP Last administered on 08/12/16 05:00; Start 08/10/16 at 10:15; Stop 08/12/16 at 11:14; Status DC Enoxaparin Sodium (Lovenox 30mg Syringe) 30 mg Q24H SQ ; Start 08/10/16 at 15:00 ; Stop 08/10/16 at 15:00; Status DC Enoxaparin Sodium (Lovenox 40mg Syringe) 40 mg Q24H SQ Last administered on 15:18; Start 08/10/16 at 15:00 Acetaminophen (Tylenol) 650 mg PRN Q6HRS PRN PEG MILD PAIN / TEMP Last administered on 08/19/16 21:13; Start 08/10/16 at 23:45 Succinylcholine Chloride (Anectine) 200 mg STK-MED ONCE .ROUTE ; Start 08/11/16 at 01:30; Stop 08/11/16 at 01:31; Status DC Succinylcholine Chloride (Anectine) 200 mg STK-MED ONCE .ROUTE ; Start 08/11/16 at 01:30; Stop 08/11/16 at 08:48; Status DC Haloperidol Lactate (Haldol) 2.5 mg PRN Q4HRS PRN IVP Hallucinatns,Confusn, Delirium; Start 08/11/16 at 10:15 Potassium Chloride (KCl Oral Soln) 40 meq 1X ONCE PEG Last administered on 10:30; Start 08/11/16 at 10:30; Stop 08/11/16 at 10:31; Status DC Potassium Chloride (KCl Oral Soln) 40 meq 1X ONCE PEG Last administered on 16:00; Start 08/11/16 at 15:00; Stop 08/11/16 at 15:01; Status DC Digoxin (Lanoxin) 500 mcg 1X ONCE IV Last administered on 08/11/16 10:30; Start 08/11/16 at 10:30; Stop 08/11/16 at 10:31; Status DC Lactulose 20 gm QD PO Last administered on 08/14/16 09:54; Start 08/12/16 at 09:00; Stop 08/15/16 at 11:50; Status DC Phenylephrine HCl 20 mg/Sodium Chloride 252 ml @ 0 mls/hr 1X ONCE IV ; Start at 14:30; Stop 08/11/16 at 14:31; Status Cancel Magnesium Sulfate/ Dextrose 50 ml @ 25 mls/hr 1X ONCE IV Last administered on 08/12/16 09:32; Start 08/12/16 at 09:00; Stop 08/12/16 at 10:59; Status DC Magnesium Sulfate/ Dextrose 50 ml @ 25 mls/hr 1X ONCE IV Last administered on 08/12/16 17:56; Start 08/12/16 at 16:00; Stop 08/12/16 at 17:59; Status DC Potassium Chloride (KCl Oral Soln) 20 meq BID PEG Last administered on 21:52; Start 08/12/16 at 11:15; Stop 08/13/16 at 09:46; Status DC Diltiazem HCl (Cardizem) 60 mg Q6HRS PO Last administered on 08/26/16 05:02; Start 08/12/16 at 11:30 Metoprolol Tartrate (Lopressor) 25 mg BID FT Last administered on 08/12/16 21: 53; Start 08/12/16 at 21:00; Stop 08/13/16 at 09:46; Status DC Aspirin (Zunilda Aspirin) 325 mg [id number] FT Last administered on 08/26/16 08: 07; Start 08/13/16 at 08:00 Ceftriaxone Sodium 1 gm/ Sodium Chloride 50 ml @ 100 mls/hr Q24H IV Last administered on 08/16/16 17:51; Start 08/12/16 at 17:00; Stop 08/17/16 at 10:33 ; Status DC Metoprolol Tartrate (Lopressor) 50 mg BID FT Last administered on 08/22/16 09: 39; Start 08/13/16 at 10:00; Stop 08/23/16 at 10:06; Status DC Potassium Chloride (KCl Oral Soln) 20 meq TID PEG Last administered on 21:33; Start 08/13/16 at 10:00; Stop 08/23/16 at 10:07; Status DC Magnesium Sulfate/ Dextrose 50 ml @ 25 mls/hr 1X ONCE IV Last administered on 08/13/16 11:26; Start 08/13/16 at 10:00; Stop 08/13/16 at 11:59; Status DC Potassium Chloride (Klor-Con) 40 meq 1X ONCE PO ; Start 08/15/16 at 14:00; Stop 08/15/16 at 14:01; Status DC Barium Sulfate (Varibar Thin Liquid Apple) 148 gm 1X ONCE PO Last administered on 08/16/16 12:55; Start 08/16/16 at 12:00; Stop 08/16/16 at 12:01 ; Status DC Levetiracetam (Keppra) 250 mg Q12HR PO Last administered on 08/19/16 08:56; Start 08/16/16 at 21:00; Stop 08/19/16 at 16:31; Status DC Rifaximin (Xifaxan) 550 mg Q12HR PO Last administered on 08/26/16 08:07; Start 08/17/16 at 13:30 Thiamine Mononitrate (Vitamin B-1) 100 mg DAILY PO Last administered on 08:06; Start 08/17/16 at 17:00 Potassium Chloride (Klor-Con) 40 meq 1X ONCE PO ; Start 08/18/16 at 09:45; Stop 08/18/16 at 09:46; Status Cancel Lansoprazole (Prevacid) 30 mg DAILY FT Last administered on 08/26/16 08:07; Start 08/19/16 at 09:00 Potassium Chloride (KCl Oral Soln) 20 meq 1X ONCE PEG Last administered on 13:13; Start 08/18/16 at 13:00; Stop 08/18/16 at 13:10; Status DC Acetaminophen/ Hydrocodone Bitart (Lortab 7.5-325/ 15ml Oral Solution) 10 ml PRN Q6HRS PRN NG MODERATE TO SEVERE PAIN Last administered on 08/22/16 12:55; Start 08/19/16 at 15:15; Stop 08/22/16 at 13:26; Status DC Levetiracetam (Keppra) 125 mg BID PO Last administered on 08/21/16 08:08; Start 08/19/16 at 21:00; Stop 08/21/16 at 09:03; Status DC Levetiracetam (Keppra) 125 mg BID PO Last administered on 08/22/16 09:40; Start 08/21/16 at 21:00; Stop 08/22/16 at 17:03; Status DC Acetaminophen/ Hydrocodone Bitart (Lortab 7.5-325/ 15ml Oral Solution) 10 ml PRN Q4HRS PRN NG MODERATE TO SEVERE PAIN Last administered on 08/25/16 05:33; Start 08/22/16 at 15:15 Amino Acids/ Glycerin/ Electrolytes 1,000 ml @ 80 mls/hr [id number] IV Last administered on 08/25/16 10:19; Start 08/22/16 at 17:00 Levetiracetam 125 mg/Sodium Chloride 101.25 ml @ 400 mls/ hr Q12HR IV Last administered on 08/25/16 08:02; Start 08/22/16 at 21:00; Stop 08/25/16 at 10:15 ; Status DC Morphine Sulfate 2 mg PRN Q2HR PRN IV PAIN Last administered on 08/23/16 07:18 ; Start 08/22/16 at 18:15; Stop 08/23/16 at 09:39; Status DC Morphine Sulfate 4 mg PRN Q2HR PRN IV PAIN Last administered on 08/26/16 11:47 ; Start 08/23/16 at 09:45 Fentanyl Citrate (Fentanyl 2ml Vial) 75 mcg 1X ONCE IV Last administered on 09:53; Start 08/23/16 at 09:45; Stop 08/23/16 at 09:49; Status DC Potassium Chloride (KCl Oral Soln) 20 meq DAILY PEG Last administered on 08:07; Start 08/24/16 at 09:00 Lidocaine (Lidoderm) 1 patch DAILY TD Last administered on 08/26/16 10:50; Start 08/26/16 at 11:00 Active Scripts Active Lactulose 20 Gm/30 Ml Solution 20 Gm PO QODAY Ativan (Lorazepam) 0.5 Mg Tablet 0.5 Mg PO BID Diltiazem 24HR Cd (Diltiazem Hcl) 240 Mg Cap.er.24h 240 Mg PO DAILY Vitamin B-1 (Thiamine Hcl) 100 Mg Tablet 100 Mg PO DAILY [place] 5-325 Tablet (Acetaminophen/Hydrocodone Bitart) 1 Each Tablet 1 Tab PO PRN Q6HRS PRN Reported Omeprazole 20 Mg Capsule.dr 20 Mg PO DAILY Zofran Odt (Ondansetron) 8 Mg Tab.rapdis 1 Tab PO PRN Q8HRS PRN Bunavail 4.2-0.7 mg Film (Buprenorphine HCl/Naloxone HCl) 1 Each Film 1 Each BC DAILY Vitals/I & O Vital Sign - Last 24 Hours 08/25/16 08/25/16 08/25/16 08/25/16 15:00 16:18 18:28 19:00 Temp 98.1 97.7 98.1 97.7 Pulse 63 63 63 Resp 18 18 B/P (MAP) 108/67 (81) 108/67 147/81 (103) Pulse Ox 98 99 O2 Delivery Room Air Room Air Room Air 08/25/16 08/25/16 08/25/16 08/25/16 19:18 20:00 20:40 23:00 Temp 96.8 96.8 Pulse 57 Resp 18 B/P (MAP) 98/60 (73) Pulse Ox 98 97 O2 Delivery Room Air Room Air Room Air Room Air O2 Flow Rate 3.5 3.5 08/26/16 08/26/16 08/26/16 08/26/16 00:00 00:34 03:00 05:01 Temp 97.5 97.5 Pulse 57 63 Resp 18 B/P (MAP) 98/60 104/60 (75) Pulse Ox 97 98 98 O2 Delivery Room Air Room Air Room Air O2 Flow Rate 3.5 3.5 08/26/16 08/26/16 08/26/16 08/26/16 05:02 07:00 07:06 08:00 Temp 97.7 97.7 Pulse 63 64 Resp 18 B/P (MAP) 104/60 113/64 (80) O2 Delivery Room Air Room Air Room Air O2 Flow Rate 3.5 08/26/16 08/26/16 08/26/16 08/26/16 08:02 10:53 11:00 11:47 Temp 98.6 98.6 Pulse 66 Resp 18 18 16 B/P (MAP) 118/81 (93) Pulse Ox 98 98 O2 Delivery Room Air Room Air Room Air Room Air O2 Flow Rate 3.5 3.5 08/26/16 12:17 Resp 16 Pulse Ox 98 O2 Delivery Room Air O2 Flow Rate 3.5 Intake and Output 08/25/16 08/25/16 08/26/16 14:59 22:59 06:59 Intake Total 0 ml 1000 ml Output Total 800 ml 825 ml Balance -800 ml 175 ml Nutrition Consultation Dietary Evaluation: Comments: Rec. 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
[2016-08-26 15:00] VITALS: BP 120/78
[2016-08-26] MEDS: ENOXAPARIN 40 MG/0.4 ML SYRINGE. SQ SCH (16:10)
--- NOTE | 2016-08-26 17:04 | PDOC ---
PULMONARY PROGRESS NOTES Subjective extubated 08/09 NO RESP COMPLAINTS Vitals Vital Signs Date Time Temp Pulse Resp B/P (MAP) Pulse Ox O2 Delivery O2 Flow Rate FiO2 08/26/16 16:03 66 118/81 08/26/16 15:00 98.6 18 97 Room Air 98.6 08/26/16 12:17 3.5 General: Alert, No acute distress HEENT: Other (nc at perrl, nose clear) Lungs: Clear Cardiovascular: S1, S2 Abdomen: Soft, Non-tender Neuro Exam: Alert Extremities: No Edema Skin: Warm Medications Active Scripts Medications Dose Route/Sig Max Daily Dose Days Date Category Lactulose 20 Gm/30 Ml Solution 20 Gm PO QODAY 02/03/16 Rx Ativan (Lorazepam) 0.5 Mg Tablet 0.5 Mg PO BID 02/03/16 Rx Diltiazem 24HR Cd (Diltiazem Hcl) 240 Mg Cap.er.24h 240 Mg PO DAILY 02/03/16 Rx Vitamin B-1 (Thiamine Hcl) 100 Mg Tablet 100 Mg PO DAILY 02/03/16 Rx Omeprazole 20 Mg Capsule.dr 20 Mg PO DAILY 01/31/16 Reported Zofran Odt (Ondansetron) 8 Mg Tab.rapdis 1 Tab PO PRN Q8HRS PRN 01/31/16 Reported Bunavail 4.2-0.7 mg Film (Buprenorphine HCl/Naloxone HCl) 1 Each Film 1 Each BC DAILY 01/31/16 Reported [place] 5-325 Tablet (Acetaminophen/Hydrocodone Bitart) 1 Each Tablet 1 Tab PO PRN Q6HRS PRN 12/01/15 Rx Impression . 1. Acute respiratory failure secondary to seizures. extubated 08/09 2. s/p Status epilepticus. 3. Positive drug screen for cannabinoids. 4. Lactic acidosis related to seizures. 5. Hepatitis. 6. encephalopathy, due to above 7. Persistent dysphagia/ failed swallow study Plan . 1. Requested by PCP/ Neurology to assess for any VC dysfunction 2. will do direct laryngoscopy in am 3. d/w patient . He agrees YOVANY AMBROSIO MD Aug 26, 2016 17:04
[2016-08-26 19:00] VITALS: BP 122/78
[2016-08-26 23:00] VITALS: BP 132/85
[2016-08-27 03:00] VITALS: BP 110/73
[2016-08-27 03:36] LABS: BASO # 0.1 x10^3/uL (0.0-0.2); BASO % 2 % (0-3); EOS % 2 % (0-3); HEMATOCRIT 36.1 % (39.0-53.0); LYMPH # 1.5 x10^3/uL (1.0-4.8); LYMPH % 26 % (24-48); MEAN CORPUSCULAR HEMOGLOBIN 32 pg (25-35); MEAN CORPUSCULAR HGB CONC 33 g/dL (31-37); MEAN CORPUSCULAR VOLUME 97 fL (79-100); MONO % 6 % (0-9); NEUT % 65 % (31-73); PLATELET COUNT 633 x10^3/uL (140-400); RED BLOOD COUNT 3.73 x10^6/uL (4.30-5.70); RED CELL DISTRIBUTION WIDTH 13.5 % (11.5-14.5); WHITE BLOOD COUNT 5.8 x10^3/uL (4.0-11.0)
[2016-08-27] MEDS: MORPHINE SULFATE 2 MG/ML DISP.SYRIN. IV PRN ×6 (04:04→22:01)
[2016-08-27 04:42] LABS: CALCIUM 9.3 mg/dL (8.5-10.1); CREATININE 0.7 mg/dL (0.7-1.3); GFR 113.5; POTASSIUM 4.2 mmol/L (3.5-5.1)
[2016-08-27] MEDS: dilTIAZem HCL 30 MG TABLET PO SCH ×4 (05:35→20:59)
[2016-08-27 07:00] VITALS: BP 128/85
[2016-08-27] MEDS: ASPIRIN 325 MG TABLET FT SCH (08:00)
[2016-08-27] MEDS: IPRATROPIUM BROMIDE 0.5 MG/2.5 ML NEBU. NEB SCH ×4 (08:04→20:39)
[2016-08-27] MEDS: LANSOPRAZOLE 30 MG TAB.RAP.DR FT SCH (08:38)
[2016-08-27] MEDS: THIAMINE 100 MG TABLET. PO SCH (08:38)
[2016-08-27] MEDS: rifAXIMin 550 MG TABLET PO SCH ×2 (09:00→20:58)
[2016-08-27] MEDS ORDERED: MIDAZOLAM HCL/PF 5 MG/5 ML VIAL. ONE (11:24)
[2016-08-27] MEDS ORDERED: fentaNYL PF VIAL 100 MCG/2 ML VIAL ONE (11:25)
[2016-08-27] MEDS ORDERED: MIDAZOLAM HCL/PF 5 MG/5 ML VIAL. IV ONE (11:27)
--- NOTE | 2016-08-27 12:05 | PDOC4 ---
PROCEDURE Procedure DIRECT LARYNGOSCOPY 1mg versed was used for conscious sedation. Bronch was passed thru vocal left nostril. Upper airway passed and VC visualized Upon phonation, left VC did not move. This was confirmed on multiple phonation attempts by pation. IMPRESSION 1. Paralyzed left VC 2. Follow with ENT at YOVANY MAGALLANES MD Aug 27, 2016 12:05
[2016-08-27 12:30] VITALS: BP 136/81
--- NOTE | 2016-08-27 12:51 | PDOC ---
PROGRESS NOTES Assessment Problems Medical Problems: (1) Alcohol withdrawal Status: Acute (2) Hepatic encephalopathy Status: Acute (3) Lactic acid acidosis Status: Acute (4) Respiratory failure Status: Acute Dysphagia, due to left vocal cord paralysis, has NG tube Seizure x 2 on 08/08/16, alcohol related. Metabolic encephalopathy. Tiny right frontal and parietal junction infract, asymptomatic, incidental finding. Plan Appreciate Dr. Pittman's help Discharge with NG tube unless GI thinks it is safe for him to have a PEG No further neurological studies needed. I discussed diagnosis with patient. Vocal cord paralysis is often idiopathic. He will have long-term dysphagia although the paralysis can recover sometimes. Suggest follow-up with ENT at as outpatient, but does not need a hospital-to- hospital transfer Follow-up with neurology as needed Subjective No complaints Objective Vital Signs Date Time Temp Pulse Resp B/P (MAP) Pulse Ox O2 Delivery O2 Flow Rate FiO2 08/27/16 12:05 65 18 117/72 95 Room Air 08/27/16 11:37 3 08/27/16 11:35 98.7 98.7 Intake and Output 08/27/16 07:00 Intake Total 0 ml Balance 0 ml Intake Oral 0 ml # Voids 4 PHYSICAL EXAM Alert. Oriented to time, place and person. PERRL. EOMI. CN: no focal findings. Muscle tone: normal. Muscle strength: 5-/5 DTR: 2+ Plantar reflex: flexor Gait: not examined in bed. Sensory exam: no abnormal findings. Review of Relevant I have reviewed the following items chikis (where applicable) has been applied. Labs Laboratory Tests Test 08/27/16 03:30 White Blood Count 5.8 x10^3/uL (4.0-11.0) Red Blood Count 3.73 x10^6/uL (4.30-5.70) Hemoglobin 12.0 g/dL (13.0-17.5) Hematocrit 36.1 % (39.0-53.0) Mean Corpuscular Volume 97 fL (79-100) Mean Corpuscular Hemoglobin 32 pg (25-35) Mean Corpuscular Hemoglobin Concent 33 g/dL (31-37) Red Cell Distribution Width 13.5 % (11.5-14.5) Platelet Count 633 x10^3/uL (140-400) Neutrophils (%) (Auto) 65 % (31-73) Lymphocytes (%) (Auto) 26 % (24-48) Monocytes (%) (Auto) 6 % (0-9) Eosinophils (%) (Auto) 2 % (0-3) Basophils (%) (Auto) 2 % (0-3) Neutrophils # (Auto) 3.8 x10^3uL (1.8-7.7) Lymphocytes # (Auto) 1.5 x10^3/uL (1.0-4.8) Monocytes # (Auto) 0.3 x10^3/uL (0.0-1.1) Eosinophils # (Auto) 0.1 x10^3/uL (0.0-0.7) Basophils # (Auto) 0.1 x10^3/uL (0.0-0.2) Sodium Level 138 mmol/L (136-145) Potassium Level 4.2 mmol/L (3.5-5.1) Chloride Level 102 mmol/L (98-107) Carbon Dioxide Level 26 mmol/L (21-32) Anion Gap 10 (6-14) Blood Urea Nitrogen 19 mg/dL (8-26) Creatinine 0.7 mg/dL (0.7-1.3) Estimated GFR (Cockcroft-Gault) 113.5 Glucose Level 91 mg/dL (70-99) Calcium Level 9.3 mg/dL (8.5-10.1) Laboratory Tests Test 08/27/16 03:30 White Blood Count 5.8 x10^3/uL (4.0-11.0) Red Blood Count 3.73 x10^6/uL (4.30-5.70) Hemoglobin 12.0 g/dL (13.0-17.5) Hematocrit 36.1 % (39.0-53.0) Mean Corpuscular Volume 97 fL (79-100) Mean Corpuscular Hemoglobin 32 pg (25-35) Mean Corpuscular Hemoglobin Concent 33 g/dL (31-37) Red Cell Distribution Width 13.5 % (11.5-14.5) Platelet Count 633 x10^3/uL (140-400) Neutrophils (%) (Auto) 65 % (31-73) Lymphocytes (%) (Auto) 26 % (24-48) Monocytes (%) (Auto) 6 % (0-9) Eosinophils (%) (Auto) 2 % (0-3) Basophils (%) (Auto) 2 % (0-3) Neutrophils # (Auto) 3.8 x10^3uL (1.8-7.7) Lymphocytes # (Auto) 1.5 x10^3/uL (1.0-4.8) Monocytes # (Auto) 0.3 x10^3/uL (0.0-1.1) Eosinophils # (Auto) 0.1 x10^3/uL (0.0-0.7) Basophils # (Auto) 0.1 x10^3/uL (0.0-0.2) Sodium Level 138 mmol/L (136-145) Potassium Level 4.2 mmol/L (3.5-5.1) Chloride Level 102 mmol/L (98-107) Carbon Dioxide Level 26 mmol/L (21-32) Anion Gap 10 (6-14) Blood Urea Nitrogen 19 mg/dL (8-26) Creatinine 0.7 mg/dL (0.7-1.3) Estimated GFR (Cockcroft-Gault) 113.5 Glucose Level 91 mg/dL (70-99) Calcium Level 9.3 mg/dL (8.5-10.1) Microbiology 08/11/16 Blood Culture - Final, Complete NO GROWTH AFTER 5 DAYS 08/11/16 Urine Culture - Final, Complete 08/11/16 Urine Culture Result 1 (JENNY) - Final, Complete 08/11/16 Antimicrobic Susceptibility - Final, Complete Medications Current Medications Diltiazem HCl (Cardizem) 25 mg STK-MED ONCE .ROUTE ; Start 08/08/16 at 10:37; Stop 08/08/16 at 10:38; Status DC Diltiazem HCl 125 mg/Dextrose 125 ml @ 0 mls/hr CONT PRN IV SEE I/O RECORD Last administered on 08/12/16 06:20; Start 08/08/16 at 11:00; Stop 08/12/16 at 12:30; Status DC Diltiazem HCl (Cardizem) 20 mg 1X ONCE IVP Last administered on 08/08/16 10: 40; Start 08/08/16 at 11:00; Stop 08/08/16 at 11:01; Status DC Lorazepam (Ativan) 2 mg STK-MED ONCE .ROUTE ; Start 08/08/16 at 10:55; Stop 01/14 at 10:56; Status DC Iohexol (Omnipaque 350 Mg/ml) 90 ml 1X ONCE IV Last administered on 08/08/16 11:15; Start 08/08/16 at 11:15; Stop 08/08/16 at 11:16; Status DC Propofol 20 ml @ 0 mls/hr 1X ONCE IV Last administered on 08/08/16 11:20; Start 08/08/16 at 11:15; Stop 08/08/16 at 11:16; Status DC Info (Do NOT chart on this entry -- for MONITORING) 1 each PRN DAILY PRN MC SEE COMMENTS; Start 08/08/16 at 11:15; Stop 08/10/16 at 09:37; Status DC Fentanyl Citrate (Fentanyl 2ml Vial) 100 mcg 1X ONCE IV Last administered on 11:03; Start 08/08/16 at 11:15; Stop 08/08/16 at 11:16; Status DC Fentanyl Citrate (Fentanyl 2ml Vial) 100 mcg 1X ONCE IV Last administered on 11:16; Start 08/08/16 at 11:15; Stop 08/08/16 at 11:16; Status DC Propofol 50 ml @ As Directed STK-MED ONCE IV ; Start 08/08/16 at 11:17; Stop 01/14 at 11:18; Status DC Ondansetron HCl (Zofran) 4 mg PRN Q8HRS PRN IV NAUSEA/VOMITING; Start 08/08/16 at 11:30; Stop 08/09/16 at 11:29; Status DC Fentanyl Citrate (Fentanyl 2ml Vial) 50 mcg PRN Q2HR PRN IV PAIN Last administered on 08/08/16 13:16; Start 08/08/16 at 11:30; Stop 08/09/16 at 11:29 ; Status DC Levetiracetam 1000 mg/Sodium Chloride 110 ml @ 440 mls/hr 1X ONCE IV Last administered on 08/08/16 11:39; Start 08/08/16 at 11:45; Stop 08/08/16 at 11:59 ; Status DC Fentanyl Citrate (Fentanyl 2ml Vial) 100 mcg 1X ONCE IV ; Start 08/08/16 at 11: 45; Stop 08/08/16 at 11:46; Status DC Propofol 50 ml @ As Directed STK-MED ONCE IV ; Start 08/08/16 at 12:09; Stop 01/14 at 12:10; Status DC Lorazepam (Ativan) 2 mg 1X ONCE IV ; Start 08/08/16 at 13:00; Stop 08/08/16 at 13:01; Status DC Succinylcholine Chloride (Anectine) 100 mg 1X ONCE IV ; Start 08/08/16 at 13:00 ; Stop 08/08/16 at 13:01; Status DC Etomidate (Amidate) 20 mg 1X ONCE IV ; Start 08/08/16 at 13:00; Stop 08/08/16 at 13:01; Status DC Propofol 100 ml @ 0 mls/hr CONT PRN IV PER PROTOCOL Last administered on 09:08; Start 08/08/16 at 13:45; Stop 08/11/16 at 10:11; Status DC Fentanyl Citrate (Fentanyl 2ml Vial) 50 mcg PRN Q1HR PRN IV COMM Last administered on 08/19/16 15:12; Start 08/08/16 at 13:45; Stop 08/19/16 at 15:17 ; Status DC Chlorhexidine Gluconate (Peridex) 15 ml BID MM Last administered on 08/09/16 09:08; Start 08/08/16 at 21:00; Stop 08/10/16 at 08:29; Status DC Ipratropium Bantry (Atrovent) 0.5 mg RTQID NEB Last administered on 08/27/16 08:04; Start 08/08/16 at 16:00 Metoprolol Tartrate (Lopressor) 12.5 mg BID PO Last administered on 08/08/16 21:51; Start 08/08/16 at 14:30; Stop 08/10/16 at 09:48; Status DC Lorazepam (Ativan) 1 mg PRN Q4HRS PRN IV ANXIETY / AGITATION Last administered on 08/16/16 21:25; Start 08/08/16 at 14:45; Stop 08/20/16 at 12:24; Status DC Levetiracetam (Keppra) 500 mg Q12HR PO Last administered on 08/15/16 21:30; Start 08/08/16 at 21:00; Stop 08/16/16 at 17:14; Status DC Multivitamins 10 ml/Folic Acid 1 mg/Thiamine HCl 100 mg/Sodium Chloride 1,011.2 ml @ 100 mls/ hr Q24H IV Last administered on 08/17/16 16:12; Start 08/08/16 at 16:00; Stop 08/17/16 at 16:20; Status DC Lorazepam (Ativan) 2 mg PRN Q4HRS PRN IV ANXIETY / AGITATION Last administered on 08/10/16 11:11; Start 08/08/16 at 15:15; Stop 08/13/16 at 11:08; Status DC Aspirin (Zunilda Aspirin) 325 mg DAILY PO Last administered on 08/09/16 09:09; Start 08/09/16 at 09:00; Stop 08/10/16 at 09:48; Status DC Diltiazem HCl (Cardizem 24hr Cd) 240 mg DAILY PO ; Start 08/09/16 at 09:00; Stop 08/10/16 at 09:48; Status DC Lactulose 20 gm Q48H PO Last administered on 08/09/16 09:13; Start 08/09/16 at 09:00; Stop 08/09/16 at 16:32; Status DC Pantoprazole Sodium (Protonix) 40 mg DAILYAC PO ; Start 08/09/16 at 07:30; Stop 08/09/16 at 09:36; Status DC Non-Formulary Medication 100 mg DAILY PO Last administered on 08/13/16 10:02; Start 08/09/16 at 09:00; Stop 08/13/16 at 11:09; Status UNV Pantoprazole Sodium (Protonix Vial) 40 mg DAILYAC IVP Last administered on 08/18 09:24; Start 08/09/16 at 10:00; Stop 08/18/16 at 10:07; Status DC Iohexol (Omnipaque 300 Mg/ml) 75 ml 1X ONCE IV ; Start 08/09/16 at 14:00; Stop 08/09/16 at 14:01; Status DC Info (Do NOT chart on this entry -- for MONITORING) 1 each PRN DAILY PRN MC SEE COMMENTS; Start 08/09/16 at 14:00; Stop 08/11/16 at 13:59; Status DC Lactulose 20 gm BID PO Last administered on 08/11/16 10:27; Start 08/09/16 at 21:00; Stop 08/11/16 at 10:52; Status DC Lorazepam (Ativan) 2 mg PRN Q1HR PRN IV For CIWA 8-14 Last administered on 08/22 14:03; Start 08/09/16 at 20:45 Lorazepam (Ativan) 4 mg PRN Q1HR PRN IV For CIWA 15 or greater Last administered on 08/23/16 05:02; Start 08/09/16 at 20:45 Haloperidol Lactate (Haldol) 5 mg PRN Q4HRS PRN IVP Hallucinatns,Confusn, Delirium Last administered on 08/10/16 12:29; Start 08/09/16 at 20:45; Stop at 10:11; Status DC Metoprolol Tartrate (Lopressor) 5 mg PRN Q4HRS PRN IVP ELEVATED BP, SEE COMMENTS Last administered on 08/10/16 02:49; Start 08/09/16 at 22:15; Stop at 09:48; Status DC Diltiazem HCl (Cardizem) 5 mg 1X ONCE IVP Last administered on 08/10/16 08:22 ; Start 08/10/16 at 08:15; Stop 08/10/16 at 08:16; Status DC Metoprolol Tartrate (Lopressor) 5 mg Q6HRS PRN IVP ELEVATED BP, SEE COMMENTS; Start 08/10/16 at 09:45; Stop 08/10/16 at 10:05; Status DC Aspirin (Aspirin) 300 mg DAILY MN Last administered on 08/12/16 08:21; Start 08/10/16 at 09:45; Stop 08/12/16 at 11:14; Status DC Magnesium Sulfate/ Dextrose 50 ml @ 25 mls/hr 1X ONCE IV Last administered on 08/10/16 10:56; Start 08/10/16 at 10:00; Stop 08/10/16 at 11:59; Status DC Metoprolol Tartrate (Lopressor) 5 mg Q6HRS IVP Last administered on 08/12/16 05:00; Start 08/10/16 at 10:15; Stop 08/12/16 at 11:14; Status DC Enoxaparin Sodium (Lovenox 30mg Syringe) 30 mg Q24H SQ ; Start 08/10/16 at 15:00 ; Stop 08/10/16 at 15:00; Status DC Enoxaparin Sodium (Lovenox 40mg Syringe) 40 mg Q24H SQ Last administered on 16:10; Start 08/10/16 at 15:00; Stop 08/26/16 at 17:06; Status DC Acetaminophen (Tylenol) 650 mg PRN Q6HRS PRN PEG MILD PAIN / TEMP Last administered on 08/19/16 21:13; Start 08/10/16 at 23:45 Succinylcholine Chloride (Anectine) 200 mg STK-MED ONCE .ROUTE ; Start 08/11/16 at 01:30; Stop 08/11/16 at 01:31; Status DC Succinylcholine Chloride (Anectine) 200 mg STK-MED ONCE .ROUTE ; Start 08/11/16 at 01:30; Stop 08/11/16 at 08:48; Status DC Haloperidol Lactate (Haldol) 2.5 mg PRN Q4HRS PRN IVP Hallucinatns,Confusn, Delirium; Start 08/11/16 at 10:15 Potassium Chloride (KCl Oral Soln) 40 meq 1X ONCE PEG Last administered on 10:30; Start 08/11/16 at 10:30; Stop 08/11/16 at 10:31; Status DC Potassium Chloride (KCl Oral Soln) 40 meq 1X ONCE PEG Last administered on 16:00; Start 08/11/16 at 15:00; Stop 08/11/16 at 15:01; Status DC Digoxin (Lanoxin) 500 mcg 1X ONCE IV Last administered on 08/11/16 10:30; Start 08/11/16 at 10:30; Stop 08/11/16 at 10:31; Status DC Lactulose 20 gm QD PO Last administered on 08/14/16 09:54; Start 08/12/16 at 09:00; Stop 08/15/16 at 11:50; Status DC Phenylephrine HCl 20 mg/Sodium Chloride 252 ml @ 0 mls/hr 1X ONCE IV ; Start at 14:30; Stop 08/11/16 at 14:31; Status Cancel Magnesium Sulfate/ Dextrose 50 ml @ 25 mls/hr 1X ONCE IV Last administered on 08/12/16 09:32; Start 08/12/16 at 09:00; Stop 08/12/16 at 10:59; Status DC Magnesium Sulfate/ Dextrose 50 ml @ 25 mls/hr 1X ONCE IV Last administered on 08/12/16 17:56; Start 08/12/16 at 16:00; Stop 08/12/16 at 17:59; Status DC Potassium Chloride (KCl Oral Soln) 20 meq BID PEG Last administered on 21:52; Start 08/12/16 at 11:15; Stop 08/13/16 at 09:46; Status DC Diltiazem HCl (Cardizem) 60 mg Q6HRS PO Last administered on 08/26/16 16:03; Start 08/12/16 at 11:30 Metoprolol Tartrate (Lopressor) 25 mg BID FT Last administered on 08/12/16 21: 53; Start 08/12/16 at 21:00; Stop 08/13/16 at 09:46; Status DC Aspirin (Zunilda Aspirin) 325 mg [id number] FT Last administered on 08/26/16 08: 07; Start 08/13/16 at 08:00 Ceftriaxone Sodium 1 gm/ Sodium Chloride 50 ml @ 100 mls/hr Q24H IV Last administered on 08/16/16 17:51; Start 08/12/16 at 17:00; Stop 08/17/16 at 10:33 ; Status DC Metoprolol Tartrate (Lopressor) 50 mg BID FT Last administered on 08/22/16 09: 39; Start 08/13/16 at 10:00; Stop 08/23/16 at 10:06; Status DC Potassium Chloride (KCl Oral Soln) 20 meq TID PEG Last administered on 21:33; Start 08/13/16 at 10:00; Stop 08/23/16 at 10:07; Status DC Magnesium Sulfate/ Dextrose 50 ml @ 25 mls/hr 1X ONCE IV Last administered on 08/13/16 11:26; Start 08/13/16 at 10:00; Stop 08/13/16 at 11:59; Status DC Potassium Chloride (Klor-Con) 40 meq 1X ONCE PO ; Start 08/15/16 at 14:00; Stop 08/15/16 at 14:01; Status DC Barium Sulfate (Varibar Thin Liquid Apple) 148 gm 1X ONCE PO Last administered on 08/16/16 12:55; Start 08/16/16 at 12:00; Stop 08/16/16 at 12:01 ; Status DC Levetiracetam (Keppra) 250 mg Q12HR PO Last administered on 08/19/16 08:56; Start 08/16/16 at 21:00; Stop 08/19/16 at 16:31; Status DC Rifaximin (Xifaxan) 550 mg Q12HR PO Last administered on 08/26/16 08:07; Start 08/17/16 at 13:30 Thiamine Mononitrate (Vitamin B-1) 100 mg DAILY PO Last administered on 08:06; Start 08/17/16 at 17:00 Potassium Chloride (Klor-Con) 40 meq 1X ONCE PO ; Start 08/18/16 at 09:45; Stop 08/18/16 at 09:46; Status Cancel Lansoprazole (Prevacid) 30 mg DAILY FT Last administered on 08/26/16 08:07; Start 08/19/16 at 09:00 Potassium Chloride (KCl Oral Soln) 20 meq 1X ONCE PEG Last administered on 13:13; Start 08/18/16 at 13:00; Stop 08/18/16 at 13:10; Status DC Acetaminophen/ Hydrocodone Bitart (Lortab 7.5-325/ 15ml Oral Solution) 10 ml PRN Q6HRS PRN NG MODERATE TO SEVERE PAIN Last administered on 08/22/16 12:55; Start 08/19/16 at 15:15; Stop 08/22/16 at 13:26; Status DC Levetiracetam (Keppra) 125 mg BID PO Last administered on 08/21/16 08:08; Start 08/19/16 at 21:00; Stop 08/21/16 at 09:03; Status DC Levetiracetam (Keppra) 125 mg BID PO Last administered on 08/22/16 09:40; Start 08/21/16 at 21:00; Stop 08/22/16 at 17:03; Status DC Acetaminophen/ Hydrocodone Bitart (Lortab 7.5-325/ 15ml Oral Solution) 10 ml PRN Q4HRS PRN NG MODERATE TO SEVERE PAIN Last administered on 08/25/16 05:33; Start 08/22/16 at 15:15 Amino Acids/ Glycerin/ Electrolytes 1,000 ml @ 80 mls/hr [id number] IV Last administered on 08/25/16 10:19; Start 08/22/16 at 17:00; Stop 08/26/16 at 19:04 ; Status DC Levetiracetam 125 mg/Sodium Chloride 101.25 ml @ 400 mls/ hr Q12HR IV Last administered on 08/25/16 08:02; Start 08/22/16 at 21:00; Stop 08/25/16 at 10:15 ; Status DC Morphine Sulfate 2 mg PRN Q2HR PRN IV PAIN Last administered on 08/23/16 07:18 ; Start 08/22/16 at 18:15; Stop 08/23/16 at 09:39; Status DC Morphine Sulfate 4 mg PRN Q2HR PRN IV PAIN Last administered on 08/27/16 08:30 ; Start 08/23/16 at 09:45 Fentanyl Citrate (Fentanyl 2ml Vial) 75 mcg 1X ONCE IV Last administered on 09:53; Start 08/23/16 at 09:45; Stop 08/23/16 at 09:49; Status DC Potassium Chloride (KCl Oral Soln) 20 meq DAILY PEG Last administered on 08:07; Start 08/24/16 at 09:00 Lidocaine (Lidoderm) 1 patch DAILY TD Last administered on 08/26/16 10:50; Start 08/26/16 at 11:00 Midazolam HCl (Versed) 5 mg STK-MED ONCE .ROUTE ; Start 08/27/16 at 11:24; Stop 08/27/16 at 11:25; Status DC Fentanyl Citrate (Fentanyl 2ml Vial) 100 mcg STK-MED ONCE .ROUTE ; Start at 11:25; Stop 08/27/16 at 11:26; Status DC Midazolam HCl (Versed) 5 mg STK-MED ONCE IV Last administered on 08/27/16t 11: 27; Start 08/27/16 at 11:27; Stop 08/27/16 at 11:34; Status DC Active Scripts Active Lactulose 20 Gm/30 Ml Solution 20 Gm PO QODAY Ativan (Lorazepam) 0.5 Mg Tablet 0.5 Mg PO BID Diltiazem 24HR Cd (Diltiazem Hcl) 240 Mg Cap.er.24h 240 Mg PO DAILY Vitamin B-1 (Thiamine Hcl) 100 Mg Tablet 100 Mg PO DAILY [place] 5-325 Tablet (Acetaminophen/Hydrocodone Bitart) 1 Each Tablet 1 Tab PO PRN Q6HRS PRN Reported Omeprazole 20 Mg Capsule.dr 20 Mg PO DAILY Zofran Odt (Ondansetron) 8 Mg Tab.rapdis 1 Tab PO PRN Q8HRS PRN [place] 4.2-0.7 mg Film (Buprenorphine HCl/Naloxone HCl) 1 Each Film 1 Each BC DAILY Vitals/I & O Vital Sign - Last 24 Hours 08/26/16 08/26/16 08/26/16 08/26/16 14:46 15:00 16:03 19:00 Temp 98.6 97.9 98.6 97.9 Pulse 95 66 70 Resp 18 18 B/P (MAP) 120/78 (92) 118/81 122/78 (93) Pulse Ox 98 97 98 O2 Delivery Room Air Room Air Room Air 08/26/16 08/26/16 08/26/16 08/26/16 19:10 20:00 20:03 23:00 Temp 97.7 97.7 Pulse 68 Resp 18 B/P (MAP) 132/85 (101) Pulse Ox 97 97 97 O2 Delivery Room Air Room Air Room Air Room Air O2 Flow Rate 3.5 3.5 08/26/16 08/27/16 08/27/16 08/27/16 23:56 03:00 04:04 04:34 Temp 97.7 97.7 Pulse 70 Resp 18 B/P (MAP) 110/73 (85) Pulse Ox 97 98 98 98 O2 Delivery Room Air Room Air Room Air Room Air O2 Flow Rate 3.5 3.5 3.5 6/30/17 08/27/16 08/27/16 08/27/16 07:00 08:05 08:30 10:34 Temp 97.8 97.8 Pulse 63 68 Resp 18 20 18 B/P (MAP) 128/85 (99) Pulse Ox 95 98 99 O2 Delivery Room Air Room Air Room Air 08/27/16 08/27/16 08/27/16 08/27/16 10:42 11:12 11:27 11:32 Pulse 62 64 Resp 18 18 Pulse Ox 97 100 100 O2 Delivery Room Air Room Air Nasal Cannula Nasal Cannula O2 Flow Rate 3.5 3 3 08/27/16 08/27/16 08/27/16 08/27/16 11:35 11:37 11:50 12:05 Temp 98.7 98.7 Pulse 62 66 68 65 Resp 20 18 18 18 B/P (MAP) 114/79 140/87 117/72 Pulse Ox 100 100 96 95 O2 Delivery Room Air Nasal Cannula Room Air Room Air O2 Flow Rate 3 Intake and Output 08/26/16 08/26/16 08/27/16 15:00 23:00 07:00 Intake Total 0 ml Balance 0 ml VALENTINO CABRERA MD Aug 27, 2016 12:51
--- NOTE | 2016-08-27 12:54 | PDOC ---
PROGRESS NOTES Chief Complaint Chief Complaint cc: seizure like activity dysphagia, weakness Acute hypoxic respiratory failure: Extubated 08/09, on NC Hepatic encephalopathy, now much improved Possible alcohol withdrawal seizures: with alcohol Chronic alcohol abuse Physical debility and weakness. , Paroxysmal, Afib: on Cardizem, rate controlled. Oropharyngeal dysphagia: , tube feeds. failed swallow study Hypokalemia: replaced, Hx hep C plan:fu with gi, neuro as per neuro, will get dr. Pittman to do bronch to see the vocal cord if there is any disfunction talked to and pt with SW today, pt very upset no progress here, wants to go [facility] or [facility]. Dr. Ashby called, [facility] who will see him as oupt on 09/18, still, wont fix his dysphagia in a quick way. pt has no insurance, not sure can do home NGT feeding or just go home with eating with asp risks. SW fu. dc pending. DNR now discussed with GI, PEG is a bad idea, gastric variceal risk, bleed risk, ascites risk with known liver disease and hepatitis History of Present Illness History of Present Illness clear mentally today Dobhoff placed for feeds 08/25 voice better today, feels stronger discussed with speech at length, pt may need ENT eval at some point if swallow still struggles looks better DNR, was discussed with palliative care and family today Vitals Vitals Vital Signs Date Time Temp Pulse Resp B/P (MAP) Pulse Ox O2 Delivery O2 Flow Rate FiO2 08/27/16 12:05 65 18 117/72 95 Room Air 08/27/16 11:37 3 08/27/16 11:35 98.7 98.7 Physical Exam General: Alert, Cooperative, No acute distress Heart: Regular rate Lungs: Clear Abdomen: Normal bowel sounds, No tenderness, Other (NG in place) Extremities: No clubbing, No cyanosis, No edema Skin: No significant lesion Labs LABS Laboratory Tests Test 08/27/16 03:30 White Blood Count 5.8 x10^3/uL (4.0-11.0) Red Blood Count 3.73 x10^6/uL (4.30-5.70) Hemoglobin 12.0 g/dL (13.0-17.5) Hematocrit 36.1 % (39.0-53.0) Mean Corpuscular Volume 97 fL (79-100) Mean Corpuscular Hemoglobin 32 pg (25-35) Mean Corpuscular Hemoglobin Concent 33 g/dL (31-37) Red Cell Distribution Width 13.5 % (11.5-14.5) Platelet Count 633 x10^3/uL (140-400) Neutrophils (%) (Auto) 65 % (31-73) Lymphocytes (%) (Auto) 26 % (24-48) Monocytes (%) (Auto) 6 % (0-9) Eosinophils (%) (Auto) 2 % (0-3) Basophils (%) (Auto) 2 % (0-3) Neutrophils # (Auto) 3.8 x10^3uL (1.8-7.7) Lymphocytes # (Auto) 1.5 x10^3/uL (1.0-4.8) Monocytes # (Auto) 0.3 x10^3/uL (0.0-1.1) Eosinophils # (Auto) 0.1 x10^3/uL (0.0-0.7) Basophils # (Auto) 0.1 x10^3/uL (0.0-0.2) Sodium Level 138 mmol/L (136-145) Potassium Level 4.2 mmol/L (3.5-5.1) Chloride Level 102 mmol/L (98-107) Carbon Dioxide Level 26 mmol/L (21-32) Anion Gap 10 (6-14) Blood Urea Nitrogen 19 mg/dL (8-26) Creatinine 0.7 mg/dL (0.7-1.3) Estimated GFR (Cockcroft-Gault) 113.5 Glucose Level 91 mg/dL (70-99) Calcium Level 9.3 mg/dL (8.5-10.1) Assessment and Plan Assessmemt and Plan will discuss dC plan with nutrition team, Problems Medical Problems: (1) Alcohol withdrawal Status: Acute (2) Hepatic encephalopathy Status: Acute (3) Lactic acid acidosis Status: Acute (4) Respiratory failure Status: Acute Problems: Comment Review of Relevant I have reviewed the following items chikis (where applicable) has been applied. Labs Laboratory Tests Test 08/27/16 03:30 White Blood Count 5.8 x10^3/uL (4.0-11.0) Red Blood Count 3.73 x10^6/uL (4.30-5.70) Hemoglobin 12.0 g/dL (13.0-17.5) Hematocrit 36.1 % (39.0-53.0) Mean Corpuscular Volume 97 fL (79-100) Mean Corpuscular Hemoglobin 32 pg (25-35) Mean Corpuscular Hemoglobin Concent 33 g/dL (31-37) Red Cell Distribution Width 13.5 % (11.5-14.5) Platelet Count 633 x10^3/uL (140-400) Neutrophils (%) (Auto) 65 % (31-73) Lymphocytes (%) (Auto) 26 % (24-48) Monocytes (%) (Auto) 6 % (0-9) Eosinophils (%) (Auto) 2 % (0-3) Basophils (%) (Auto) 2 % (0-3) Neutrophils # (Auto) 3.8 x10^3uL (1.8-7.7) Lymphocytes # (Auto) 1.5 x10^3/uL (1.0-4.8) Monocytes # (Auto) 0.3 x10^3/uL (0.0-1.1) Eosinophils # (Auto) 0.1 x10^3/uL (0.0-0.7) Basophils # (Auto) 0.1 x10^3/uL (0.0-0.2) Sodium Level 138 mmol/L (136-145) Potassium Level 4.2 mmol/L (3.5-5.1) Chloride Level 102 mmol/L (98-107) Carbon Dioxide Level 26 mmol/L (21-32) Anion Gap 10 (6-14) Blood Urea Nitrogen 19 mg/dL (8-26) Creatinine 0.7 mg/dL (0.7-1.3) Estimated GFR (Cockcroft-Gault) 113.5 Glucose Level 91 mg/dL (70-99) Calcium Level 9.3 mg/dL (8.5-10.1) Laboratory Tests Test 08/27/16 03:30 White Blood Count 5.8 x10^3/uL (4.0-11.0) Red Blood Count 3.73 x10^6/uL (4.30-5.70) Hemoglobin 12.0 g/dL (13.0-17.5) Hematocrit 36.1 % (39.0-53.0) Mean Corpuscular Volume 97 fL (79-100) Mean Corpuscular Hemoglobin 32 pg (25-35) Mean Corpuscular Hemoglobin Concent 33 g/dL (31-37) Red Cell Distribution Width 13.5 % (11.5-14.5) Platelet Count 633 x10^3/uL (140-400) Neutrophils (%) (Auto) 65 % (31-73) Lymphocytes (%) (Auto) 26 % (24-48) Monocytes (%) (Auto) 6 % (0-9) Eosinophils (%) (Auto) 2 % (0-3) Basophils (%) (Auto) 2 % (0-3) Neutrophils # (Auto) 3.8 x10^3uL (1.8-7.7) Lymphocytes # (Auto) 1.5 x10^3/uL (1.0-4.8) Monocytes # (Auto) 0.3 x10^3/uL (0.0-1.1) Eosinophils # (Auto) 0.1 x10^3/uL (0.0-0.7) Basophils # (Auto) 0.1 x10^3/uL (0.0-0.2) Sodium Level 138 mmol/L (136-145) Potassium Level 4.2 mmol/L (3.5-5.1) Chloride Level 102 mmol/L (98-107) Carbon Dioxide Level 26 mmol/L (21-32) Anion Gap 10 (6-14) Blood Urea Nitrogen 19 mg/dL (8-26) Creatinine 0.7 mg/dL (0.7-1.3) Estimated GFR (Cockcroft-Gault) 113.5 Glucose Level 91 mg/dL (70-99) Calcium Level 9.3 mg/dL (8.5-10.1) Microbiology 08/11/16 Blood Culture - Final, Complete NO GROWTH AFTER 5 DAYS 08/11/16 Urine Culture - Final, Complete 08/11/16 Urine Culture Result 1 (JENNY) - Final, Complete 08/11/16 Antimicrobic Susceptibility - Final, Complete Medications Current Medications Diltiazem HCl (Cardizem) 25 mg STK-MED ONCE .ROUTE ; Start 08/08/16 at 10:37; Stop 08/08/16 at 10:38; Status DC Diltiazem HCl 125 mg/Dextrose 125 ml @ 0 mls/hr CONT PRN IV SEE I/O RECORD Last administered on 08/12/16 06:20; Start 08/08/16 at 11:00; Stop 08/12/16 at 12:30; Status DC Diltiazem HCl (Cardizem) 20 mg 1X ONCE IVP Last administered on 08/08/16 10: 40; Start 08/08/16 at 11:00; Stop 08/08/16 at 11:01; Status DC Lorazepam (Ativan) 2 mg STK-MED ONCE .ROUTE ; Start 08/08/16 at 10:55; Stop 01/14 at 10:56; Status DC Iohexol (Omnipaque 350 Mg/ml) 90 ml 1X ONCE IV Last administered on 08/08/16 11:15; Start 08/08/16 at 11:15; Stop 08/08/16 at 11:16; Status DC Propofol 20 ml @ 0 mls/hr 1X ONCE IV Last administered on 08/08/16 11:20; Start 08/08/16 at 11:15; Stop 08/08/16 at 11:16; Status DC Info (Do NOT chart on this entry -- for MONITORING) 1 each PRN DAILY PRN MC SEE COMMENTS; Start 08/08/16 at 11:15; Stop 08/10/16 at 09:37; Status DC Fentanyl Citrate (Fentanyl 2ml Vial) 100 mcg 1X ONCE IV Last administered on 11:03; Start 08/08/16 at 11:15; Stop 08/08/16 at 11:16; Status DC Fentanyl Citrate (Fentanyl 2ml Vial) 100 mcg 1X ONCE IV Last administered on 11:16; Start 08/08/16 at 11:15; Stop 08/08/16 at 11:16; Status DC Propofol 50 ml @ As Directed STK-MED ONCE IV ; Start 08/08/16 at 11:17; Stop 01/14 at 11:18; Status DC Ondansetron HCl (Zofran) 4 mg PRN Q8HRS PRN IV NAUSEA/VOMITING; Start 08/08/16 at 11:30; Stop 08/09/16 at 11:29; Status DC Fentanyl Citrate (Fentanyl 2ml Vial) 50 mcg PRN Q2HR PRN IV PAIN Last administered on 08/08/16 13:16; Start 08/08/16 at 11:30; Stop 08/09/16 at 11:29 ; Status DC Levetiracetam 1000 mg/Sodium Chloride 110 ml @ 440 mls/hr 1X ONCE IV Last administered on 08/08/16 11:39; Start 08/08/16 at 11:45; Stop 08/08/16 at 11:59 ; Status DC Fentanyl Citrate (Fentanyl 2ml Vial) 100 mcg 1X ONCE IV ; Start 08/08/16 at 11: 45; Stop 08/08/16 at 11:46; Status DC Propofol 50 ml @ As Directed STK-MED ONCE IV ; Start 08/08/16 at 12:09; Stop 01/14 at 12:10; Status DC Lorazepam (Ativan) 2 mg 1X ONCE IV ; Start 08/08/16 at 13:00; Stop 08/08/16 at 13:01; Status DC Succinylcholine Chloride (Anectine) 100 mg 1X ONCE IV ; Start 08/08/16 at 13:00 ; Stop 08/08/16 at 13:01; Status DC Etomidate (Amidate) 20 mg 1X ONCE IV ; Start 08/08/16 at 13:00; Stop 08/08/16 at 13:01; Status DC Propofol 100 ml @ 0 mls/hr CONT PRN IV PER PROTOCOL Last administered on 09:08; Start 08/08/16 at 13:45; Stop 08/11/16 at 10:11; Status DC Fentanyl Citrate (Fentanyl 2ml Vial) 50 mcg PRN Q1HR PRN IV COMM Last administered on 08/19/16 15:12; Start 08/08/16 at 13:45; Stop 08/19/16 at 15:17 ; Status DC Chlorhexidine Gluconate (Peridex) 15 ml BID MM Last administered on 08/09/16 09:08; Start 08/08/16 at 21:00; Stop 08/10/16 at 08:29; Status DC Ipratropium [place] (Atrovent) 0.5 mg RTQID NEB Last administered on 08/27/16 08:04; Start 08/08/16 at 16:00 Metoprolol Tartrate (Lopressor) 12.5 mg BID PO Last administered on 08/08/16 21:51; Start 08/08/16 at 14:30; Stop 08/10/16 at 09:48; Status DC Lorazepam (Ativan) 1 mg PRN Q4HRS PRN IV ANXIETY / AGITATION Last administered on 08/16/16 21:25; Start 08/08/16 at 14:45; Stop 08/20/16 at 12:24; Status DC Levetiracetam (Keppra) 500 mg Q12HR PO Last administered on 08/15/16 21:30; Start 08/08/16 at 21:00; Stop 08/16/16 at 17:14; Status DC Multivitamins 10 ml/Folic Acid 1 mg/Thiamine HCl 100 mg/Sodium Chloride 1,011.2 ml @ 100 mls/ hr Q24H IV Last administered on 08/17/16 16:12; Start 08/08/16 at 16:00; Stop 08/17/16 at 16:20; Status DC Lorazepam (Ativan) 2 mg PRN Q4HRS PRN IV ANXIETY / AGITATION Last administered on 08/10/16 11:11; Start 08/08/16 at 15:15; Stop 08/13/16 at 11:08; Status DC Aspirin (Zunilda Aspirin) 325 mg DAILY PO Last administered on 08/09/16 09:09; Start 08/09/16 at 09:00; Stop 08/10/16 at 09:48; Status DC Diltiazem HCl (Cardizem 24hr Cd) 240 mg DAILY PO ; Start 08/09/16 at 09:00; Stop 08/10/16 at 09:48; Status DC Lactulose 20 gm Q48H PO Last administered on 08/09/16 09:13; Start 08/09/16 at 09:00; Stop 08/09/16 at 16:32; Status DC Pantoprazole Sodium (Protonix) 40 mg DAILYAC PO ; Start 08/09/16 at 07:30; Stop 08/09/16 at 09:36; Status DC Non-Formulary Medication 100 mg DAILY PO Last administered on 08/13/16 10:02; Start 08/09/16 at 09:00; Stop 08/13/16 at 11:09; Status UNV Pantoprazole Sodium (Protonix Vial) 40 mg DAILYAC IVP Last administered on 08/18 09:24; Start 08/09/16 at 10:00; Stop 08/18/16 at 10:07; Status DC Iohexol (Omnipaque 300 Mg/ml) 75 ml 1X ONCE IV ; Start 08/09/16 at 14:00; Stop 08/09/16 at 14:01; Status DC Info (Do NOT chart on this entry -- for MONITORING) 1 each PRN DAILY PRN MC SEE COMMENTS; Start 08/09/16 at 14:00; Stop 08/11/16 at 13:59; Status DC Lactulose 20 gm BID PO Last administered on 08/11/16 10:27; Start 08/09/16 at 21:00; Stop 08/11/16 at 10:52; Status DC Lorazepam (Ativan) 2 mg PRN Q1HR PRN IV For CIWA 8-14 Last administered on 08/22 14:03; Start 08/09/16 at 20:45 Lorazepam (Ativan) 4 mg PRN Q1HR PRN IV For CIWA 15 or greater Last administered on 08/23/16 05:02; Start 08/09/16 at 20:45 Haloperidol Lactate (Haldol) 5 mg PRN Q4HRS PRN IVP Hallucinatns,Confusn, Delirium Last administered on 08/10/16 12:29; Start 08/09/16 at 20:45; Stop at 10:11; Status DC Metoprolol Tartrate (Lopressor) 5 mg PRN Q4HRS PRN IVP ELEVATED BP, SEE COMMENTS Last administered on 08/10/16 02:49; Start 08/09/16 at 22:15; Stop at 09:48; Status DC Diltiazem HCl (Cardizem) 5 mg 1X ONCE IVP Last administered on 08/10/16 08:22 ; Start 08/10/16 at 08:15; Stop 08/10/16 at 08:16; Status DC Metoprolol Tartrate (Lopressor) 5 mg Q6HRS PRN IVP ELEVATED BP, SEE COMMENTS; Start 08/10/16 at 09:45; Stop 08/10/16 at 10:05; Status DC Aspirin (Aspirin) 300 mg DAILY MA Last administered on 08/12/16 08:21; Start 08/10/16 at 09:45; Stop 08/12/16 at 11:14; Status DC Magnesium Sulfate/ Dextrose 50 ml @ 25 mls/hr 1X ONCE IV Last administered on 08/10/16 10:56; Start 08/10/16 at 10:00; Stop 08/10/16 at 11:59; Status DC Metoprolol Tartrate (Lopressor) 5 mg Q6HRS IVP Last administered on 08/12/16 05:00; Start 08/10/16 at 10:15; Stop 08/12/16 at 11:14; Status DC Enoxaparin Sodium (Lovenox 30mg Syringe) 30 mg Q24H SQ ; Start 08/10/16 at 15:00 ; Stop 08/10/16 at 15:00; Status DC Enoxaparin Sodium (Lovenox 40mg Syringe) 40 mg Q24H SQ Last administered on 16:10; Start 08/10/16 at 15:00; Stop 08/26/16 at 17:06; Status DC Acetaminophen (Tylenol) 650 mg PRN Q6HRS PRN PEG MILD PAIN / TEMP Last administered on 08/19/16 21:13; Start 08/10/16 at 23:45 Succinylcholine Chloride (Anectine) 200 mg STK-MED ONCE .ROUTE ; Start 08/11/16 at 01:30; Stop 08/11/16 at 01:31; Status DC Succinylcholine Chloride (Anectine) 200 mg STK-MED ONCE .ROUTE ; Start 08/11/16 at 01:30; Stop 08/11/16 at 08:48; Status DC Haloperidol Lactate (Haldol) 2.5 mg PRN Q4HRS PRN IVP Hallucinatns,Confusn, Delirium; Start 08/11/16 at 10:15 Potassium Chloride (KCl Oral Soln) 40 meq 1X ONCE PEG Last administered on 10:30; Start 08/11/16 at 10:30; Stop 08/11/16 at 10:31; Status DC Potassium Chloride (KCl Oral Soln) 40 meq 1X ONCE PEG Last administered on 16:00; Start 08/11/16 at 15:00; Stop 08/11/16 at 15:01; Status DC Digoxin (Lanoxin) 500 mcg 1X ONCE IV Last administered on 08/11/16 10:30; Start 08/11/16 at 10:30; Stop 08/11/16 at 10:31; Status DC Lactulose 20 gm QD PO Last administered on 08/14/16 09:54; Start 08/12/16 at 09:00; Stop 08/15/16 at 11:50; Status DC Phenylephrine HCl 20 mg/Sodium Chloride 252 ml @ 0 mls/hr 1X ONCE IV ; Start at 14:30; Stop 08/11/16 at 14:31; Status Cancel Magnesium Sulfate/ Dextrose 50 ml @ 25 mls/hr 1X ONCE IV Last administered on 08/12/16 09:32; Start 08/12/16 at 09:00; Stop 08/12/16 at 10:59; Status DC Magnesium Sulfate/ Dextrose 50 ml @ 25 mls/hr 1X ONCE IV Last administered on 08/12/16 17:56; Start 08/12/16 at 16:00; Stop 08/12/16 at 17:59; Status DC Potassium Chloride (KCl Oral Soln) 20 meq BID PEG Last administered on 21:52; Start 08/12/16 at 11:15; Stop 08/13/16 at 09:46; Status DC Diltiazem HCl (Cardizem) 60 mg Q6HRS PO Last administered on 08/26/16 16:03; Start 08/12/16 at 11:30 Metoprolol Tartrate (Lopressor) 25 mg BID FT Last administered on 08/12/16 21: 53; Start 08/12/16 at 21:00; Stop 08/13/16 at 09:46; Status DC Aspirin (Zunilda Aspirin) 325 mg [id number] FT Last administered on 08/26/16 08: 07; Start 08/13/16 at 08:00 Ceftriaxone Sodium 1 gm/ Sodium Chloride 50 ml @ 100 mls/hr Q24H IV Last administered on 08/16/16 17:51; Start 08/12/16 at 17:00; Stop 08/17/16 at 10:33 ; Status DC Metoprolol Tartrate (Lopressor) 50 mg BID FT Last administered on 08/22/16 09: 39; Start 08/13/16 at 10:00; Stop 08/23/16 at 10:06; Status DC Potassium Chloride (KCl Oral Soln) 20 meq TID PEG Last administered on 21:33; Start 08/13/16 at 10:00; Stop 08/23/16 at 10:07; Status DC Magnesium Sulfate/ Dextrose 50 ml @ 25 mls/hr 1X ONCE IV Last administered on 08/13/16 11:26; Start 08/13/16 at 10:00; Stop 08/13/16 at 11:59; Status DC Potassium Chloride (Klor-Con) 40 meq 1X ONCE PO ; Start 08/15/16 at 14:00; Stop 08/15/16 at 14:01; Status DC Barium Sulfate (Varibar Thin Liquid Apple) 148 gm 1X ONCE PO Last administered on 08/16/16 12:55; Start 08/16/16 at 12:00; Stop 08/16/16 at 12:01 ; Status DC Levetiracetam (Keppra) 250 mg Q12HR PO Last administered on 08/19/16 08:56; Start 08/16/16 at 21:00; Stop 08/19/16 at 16:31; Status DC Rifaximin (Xifaxan) 550 mg Q12HR PO Last administered on 08/26/16 08:07; Start 08/17/16 at 13:30 Thiamine Mononitrate (Vitamin B-1) 100 mg DAILY PO Last administered on 08:06; Start 08/17/16 at 17:00 Potassium Chloride (Klor-Con) 40 meq 1X ONCE PO ; Start 08/18/16 at 09:45; Stop 08/18/16 at 09:46; Status Cancel Lansoprazole (Prevacid) 30 mg DAILY FT Last administered on 08/26/16 08:07; Start 08/19/16 at 09:00 Potassium Chloride (KCl Oral Soln) 20 meq 1X ONCE PEG Last administered on 13:13; Start 08/18/16 at 13:00; Stop 08/18/16 at 13:10; Status DC Acetaminophen/ Hydrocodone Bitart (Lortab 7.5-325/ 15ml Oral Solution) 10 ml PRN Q6HRS PRN NG MODERATE TO SEVERE PAIN Last administered on 08/22/16 12:55; Start 08/19/16 at 15:15; Stop 08/22/16 at 13:26; Status DC Levetiracetam (Keppra) 125 mg BID PO Last administered on 08/21/16 08:08; Start 08/19/16 at 21:00; Stop 08/21/16 at 09:03; Status DC Levetiracetam (Keppra) 125 mg BID PO Last administered on 08/22/16 09:40; Start 08/21/16 at 21:00; Stop 08/22/16 at 17:03; Status DC Acetaminophen/ Hydrocodone Bitart (Lortab 7.5-325/ 15ml Oral Solution) 10 ml PRN Q4HRS PRN NG MODERATE TO SEVERE PAIN Last administered on 08/25/16 05:33; Start 08/22/16 at 15:15 Amino Acids/ Glycerin/ Electrolytes 1,000 ml @ 80 mls/hr [id number] IV Last administered on 08/25/16 10:19; Start 08/22/16 at 17:00; Stop 08/26/16 at 19:04 ; Status DC Levetiracetam 125 mg/Sodium Chloride 101.25 ml @ 400 mls/ hr Q12HR IV Last administered on 08/25/16 08:02; Start 08/22/16 at 21:00; Stop 08/25/16 at 10:15 ; Status DC Morphine Sulfate 2 mg PRN Q2HR PRN IV PAIN Last administered on 08/23/16 07:18 ; Start 08/22/16 at 18:15; Stop 08/23/16 at 09:39; Status DC Morphine Sulfate 4 mg PRN Q2HR PRN IV PAIN Last administered on 08/27/16 08:30 ; Start 08/23/16 at 09:45 Fentanyl Citrate (Fentanyl 2ml Vial) 75 mcg 1X ONCE IV Last administered on 09:53; Start 08/23/16 at 09:45; Stop 08/23/16 at 09:49; Status DC Potassium Chloride (KCl Oral Soln) 20 meq DAILY PEG Last administered on 08:07; Start 08/24/16 at 09:00 Lidocaine (Lidoderm) 1 patch DAILY TD Last administered on 08/26/16 10:50; Start 08/26/16 at 11:00 Midazolam HCl (Versed) 5 mg STK-MED ONCE .ROUTE ; Start 08/27/16 at 11:24; Stop 08/27/16 at 11:25; Status DC Fentanyl Citrate (Fentanyl 2ml Vial) 100 mcg STK-MED ONCE .ROUTE ; Start at 11:25; Stop 08/27/16 at 11:26; Status DC Midazolam HCl (Versed) 5 mg STK-MED ONCE IV Last administered on 08/27/16 11: 27; Start 08/27/16 at 11:27; Stop 08/27/16 at 11:34; Status DC Active Scripts Active Lactulose 20 Gm/30 Ml Solution 20 Gm PO QODAY Ativan (Lorazepam) 0.5 Mg Tablet 0.5 Mg PO BID Diltiazem 24HR Cd (Diltiazem Hcl) 240 Mg Cap.er.24h 240 Mg PO DAILY Vitamin B-1 (Thiamine Hcl) 100 Mg Tablet 100 Mg PO DAILY Mobile 5-325 Tablet (Acetaminophen/Hydrocodone Bitart) 1 Each Tablet 1 Tab PO PRN Q6HRS PRN Reported Omeprazole 20 Mg Capsule.dr 20 Mg PO DAILY Zofran Odt (Ondansetron) 8 Mg Tab.rapdis 1 Tab PO PRN Q8HRS PRN [place] 4.2-0.7 mg Film (Buprenorphine HCl/Naloxone HCl) 1 Each Film 1 Each BC DAILY Vitals/I & O Vital Sign - Last 24 Hours 08/26/16 08/26/16 08/26/16 08/26/16 14:46 15:00 16:03 19:00 Temp 98.6 97.9 98.6 97.9 Pulse 95 66 70 Resp 18 18 B/P (MAP) 120/78 (92) 118/81 122/78 (93) Pulse Ox 98 97 98 O2 Delivery Room Air Room Air Room Air 08/26/16 08/26/16 08/26/16 08/26/16 19:10 20:00 20:03 23:00 Temp 97.7 97.7 Pulse 68 Resp 18 B/P (MAP) 132/85 (101) Pulse Ox 97 97 97 O2 Delivery Room Air Room Air Room Air Room Air O2 Flow Rate 3.5 3.5 08/26/16 08/27/16 08/27/16 08/27/16 23:56 03:00 04:04 04:34 Temp 97.7 97.7 Pulse 70 Resp 18 B/P (MAP) 110/73 (85) Pulse Ox 97 98 98 98 O2 Delivery Room Air Room Air Room Air Room Air O2 Flow Rate 3.5 3.5 3.5 08/27/16 08/27/16 08/27/16 08/27/16 07:00 08:05 08:30 10:34 Temp 97.8 97.8 Pulse 63 68 Resp 18 20 18 B/P (MAP) 128/85 (99) Pulse Ox 95 98 99 O2 Delivery Room Air Room Air Room Air 08/27/16 08/27/16 08/27/16 08/27/16 10:42 11:12 11:27 11:32 Pulse 62 64 Resp 18 18 Pulse Ox 97 100 100 O2 Delivery Room Air Room Air Nasal Cannula Nasal Cannula O2 Flow Rate 3.5 3 3 08/27/16 08/27/16 08/27/16 08/27/16 11:35 11:37 11:50 12:05 Temp 98.7 98.7 Pulse 62 66 68 65 Resp 20 18 18 18 B/P (MAP) 114/79 140/87 117/72 Pulse Ox 100 100 96 95 O2 Delivery Room Air Nasal Cannula Room Air Room Air O2 Flow Rate 3 Intake and Output 08/26/16 08/26/16 08/27/16 15:00 23:00 07:00 Intake Total 0 ml Balance 0 ml Nutrition Consultation Dietary Evaluation: Comments: REC resume tube feeding for total nutrition via NG while 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
--- NOTE | 2016-08-27 13:37 | RAD ---
Indication: Dobbhoff placement. Time of exam 1327 hours. A Dobbhoff passes below the diaphragm. Dobbhoff appears to be coiled in the region of the gastric body. The bowel gas pattern is unremarkable. No free air is detected. Impression: Dobbhoff placement, as described.
[2016-08-27] MEDS ORDERED: POTA20LI27 PEG (13:44)
[2016-08-27] MEDS ORDERED: HYDR15SO4 NG (13:44)
[2016-08-27] MEDS ORDERED: RIFA550T4 PO (13:44)
[2016-08-27 15:00] VITALS: BP 123/75
--- NOTE | 2016-08-27 15:39 | RAD ---
Indication: Dobbhoff reposition. Time of exam 1516 hours. Correlation is made with prior study earlier the same day. The Dobbhoff has been advanced. The Dobbhoff remains coiled in the stomach. The bowel gas pattern is unremarkable. Impression: Advancement of the Dobbhoff, which remains coiled in the stomach.
[2016-08-27] MEDS ORDERED: IV DEXTROSE 5% - 0.9 % NACL 500 ML IV ONE (17:30)
[2016-08-27] MEDS: LIDOCAINE (700MG/PATCH) PATCH. TD SCH ×2 (17:39→20:58)
[2016-08-27 19:00] VITALS: BP 150/92
--- NOTE | 2016-08-27 20:42 | RAD ---
EXAM: Abdomen, single view. HISTORY: Enteric catheter placement. COMPARISON: None. FINDINGS: A frontal view of the abdomen is obtained. There is an enteric catheter with the tip in the stomach. There are prominent air-filled loops of bowel throughout the abdomen. There is no transition point to suggest obstruction. There is a healed right 11th rib fracture. IMPRESSION: Enteric feeding catheter within the stomach. Electronically signed by: Tiffanie Rodrigues MD (08/27/2016 8:39 PM)
[2016-08-27] MEDS: HYDROcodon/APAP 7.5/325MG ORAL 15 ML SOLUTION NG PRN (20:58)
[2016-08-27] MEDS: POTASSIUM CHLORIDE 20 MEQ/15 ML ORAL LIQUID. PEG SCH (20:58)
[2016-08-27 20:59] VITALS: BP 123/75
== END 2016-08-27 22:15 | disposition home or self-care (01) | DRG 208 ==
LOC: ER 10:30 → 1 WEST ICU 11:18 → 2 SOUTH 08-12 16:15 → 5 NORTH 08-18 16:45
PROVIDERS: ADMIT Internal Medicine Hematology & Oncology; ATTEND Internal Medicine Hematology & Oncology
PROC: 5A1945Z Respiratory Ventilation, 24-96 Consecutive Hours (ICD-10-PCS; principal; 2016-08-08)
PROC: 0BH17EZ Insertion of Endotracheal Airway into Trachea, Via Natural or Artificial Opening (ICD-10-PCS; 2016-08-08)
PROC: 0BP1XDZ Removal of Intraluminal Device from Trachea, External Approach (ICD-10-PCS; 2016-08-09)
PROC: 0CJS8ZZ Inspection of Larynx, Via Natural or Artificial Opening Endoscopic (ICD-10-PCS; 2016-08-27)
DX: J96.01 Acute respiratory failure with hypoxia (principal); G92 Toxic encephalopathy; E43 Unspecified severe protein-calorie malnutrition; E87.2 Acidosis; F10.239 Alcohol dependence with withdrawal, unspecified; J98.11 Atelectasis; Z68.1 Body mass index [BMI] 19.9 or less, adult; F11.20 Opioid dependence, uncomplicated; K72.90 Hepatic failure, unspecified without coma; B19.20 Unspecified viral hepatitis C without hepatic coma; G40.901 Epilepsy, unspecified, not intractable, with status epilepticus; I10 Essential (primary) hypertension; J38.01 Paralysis of vocal cords and larynx, unilateral; K21.9 Gastro-esophageal reflux disease without esophagitis; K74.60 Unspecified cirrhosis of liver; I48.0 Paroxysmal atrial fibrillation; K76.0 Fatty (change of) liver, not elsewhere classified; R13.12 Dysphagia, oropharyngeal phase; E87.6 Hypokalemia; G89.29 Other chronic pain; M54.5 Low back pain; F12.90 Cannabis use, unspecified, uncomplicated; Z51.5 Encounter for palliative care; Z66 Do not resuscitate; Z91.19 Patient's noncompliance with other medical treatment and regimen; Z79.82 Long term (current) use of aspirin; Z79.899 Other long term (current) drug therapy; Z79.1 Long term (current) use of non-steroidal anti-inflammatories (NSAID); Z79.2 Long term (current) use of antibiotics; Z87.891 Personal history of nicotine dependence; Z87.898 Personal history of other specified conditions; Z82.49 Family history of ischemic heart disease and other diseases of the circulatory system
CPT/HCPCS: 31500; 31622; 36415; 36600; 70450; 70551; 71010; 71275; 72148; 74000; 74160; 74230; 80048; 80053; 80061; 81001; 82140; 82550; 82607; 82746; 82805; 83605; 83690; 83735; 83880; 84443; 84484; 85027; 85610; 85730; 86850; 86900; 86901; 87040; 87086; 87186; 87641; 93005; 94002; 94003; 94250; 94640; 94760; 95816; 96365; 96368; 96375; 96376; A6539; C1887; C9113; G0480; G0481; J0330; J0696; J1160; J1630; J1650; J1953; J2060; J2250; J2270; J2704; J3010; J3490; J7030; J7042; J7060; J7644; Q9967; 92526; 92610; 92611; 97110; 97116; 97530; 97535; 99291-25

== ENCOUNTER 2016-08-28 00:51 | Emergency (ER) | payer SELFPAY ==
[~2016-08-28] VITALS: Ht 180.3 cm; Wt 51.3 kg
[~2016-08-28 00:51] MED LIST changes: +HYDR15SO4 NG; +POTA20LI27 PEG; +RIFA550T4 PO
--- NOTE | 2016-08-28 03:17 | ED.ADGEN ---
Past Medical History Past Medical History: Hepatitis, Other Additional Past Medical Histor: CHRONIC N/V & ABD PAIN, Narcotic addiction, HEP C, FEEDING TUBE/DIFF SWALLO Past Surgical History: No Surgical History, Other Alcohol Use: Heavy Drug Use: Marijuana, Other Adult General Chief Complaint Chief Complaint: GI PROBLEM [facility] Patient is a 65 year old male discharged from hospital several hours ago with NG tube placement for nutritional requirement due to vocal cord paralysis who presents with concern for possible NG tube dislodgment. Patient was given NG tube feedings this evening and stated he could taste feeding in his mouth. No chest pain cough or shortness of breath. Review of Systems Review of Systems ROS as per [facility] Allergies Allergies Allergies Coded Allergies Type Severity Reaction Last Updated Verified No Known Drug Allergies 08/27/16 No Physical Exam Physical Exam Constitutional: Well developed, cachectic appearing HENT: Normocephalic, atraumatic, bilateral external ears normal, oropharynx moist, no oral exudates, nose normal. Eyes: PERRL. Neck: Normal range of motion. Cardiovascular:Heart rate regular rhythm, no murmur. Lungs & Thorax: Bilateral breath sounds clear to auscultation. Abdomen: Bowel sounds normal, soft, no tenderness. Skin: Warm, dry. Back: No tenderness. Extremities: No tenderness. Neurologic: Alert and oriented X 3, normal motor function. Psychologic: Affect normal, judgement normal, mood normal. Current Patient Data Vital Signs Vital Signs Date Time Temp Pulse Resp B/P (MAP) Pulse Ox O2 Delivery O2 Flow Rate FiO2 08/28/16 01:13 98.4 100 16 171/104 (126) 96 Room Air 98.4 EKG EKG [] Radiology/Procedures Radiology/Procedures [XR KUB: No NG tube present XR KUB: NG tube present in proximal small bowel. ] Course & Med Decision Making Course & Med Decision Making Pertinent Labs and Imaging studies reviewed. (See chart for details) [NG tube successfully advanced. Retracted 3 cm upon review of KUB and then secured.] Dragon Disclaimer Dragon Disclaimer This electronic medical record was generated, in whole or in part, using a voice recognition dictation system. VARINDER ROMO DO Aug 28, 2016 03:16
[2016-08-28 03:30] VITALS: BP 135/81
--- NOTE | 2016-08-28 07:15 | RAD ---
GUY, 08/28/2016, 1:23 AM: History: Check NG tube placement AP view of the upper abdomen and lower chest does not demonstrate the presence of an NG tube. It is presumably malpositioned somewhere in the neck. The upper abdominal gas pattern is unremarkable. GUY, 08/28/2016, 2:54 AM: An AP view of the upper abdomen and lower chest now demonstrates a Dobbhoff type tube extending into the body of the stomach. The upper abdominal gas pattern is unremarkable. There appears to be minimal parenchymal scarring. IMPRESSION: The Dobbhoff tube now extends into the body of the stomach.
== END 2016-08-28 03:35 | disposition home or self-care (01) ==
LOC: ER 00:51
DX: T85.628A Displacement of other specified internal prosthetic devices, implants and grafts, initial encounter (principal); G89.29 Other chronic pain; F12.10 Cannabis abuse, uncomplicated; F10.10 Alcohol abuse, uncomplicated; J38.00 Paralysis of vocal cords and larynx, unspecified; Z86.19 Personal history of other infectious and parasitic diseases
CPT/HCPCS: 74000; 99284